=== PATIENT | female | born 1955 | race African-American/Black ===

== ENCOUNTER 2019-03-12 23:29 | Emergency (ER) | payer MEDICARE, MEDICAID ==
[2019-03-13 00:40] LABS: ABSOLUTE BASOPHILS # (AUTO) 0.1 10^3/uL (0.0-0.2); HEMOGLOBIN 11.5 g/dL (12.0-15.5); SEGMENTED NEUTROPHILS % (AUTO) 79.6 % (42-78); TOTAL CELLS COUNTED % (AUTO) 100 %
[2019-03-13 00:43] LABS: MEAN CORPUSCULAR VOLUME 92 fl (80-97)
--- NOTE | 2019-03-13 01:02 | ER Document Report ---
ED General - General TRAVEL OUTSIDE OF THE [place] IN LAST 30 DAYS: No - Related Data Home Medications: AMLODIPINE 10MG PO DAILY. ATORVASTATIN 20MG PO QD. CLOPIDOGREL 75 MG PO DAILY. COLACE 100MG PO QD. PEPCID 20MG PO BID. FERROUS SULFATE 325MG PO QD. ELIQUIS 2.5MG PO BID. LASIX 40MG PO QD. GABAPENTIN 300MG AGNIESZKA TID. TERAM TAB PO QD <SANDRO GARRETT - Last Filed: 03/13/19 02:47> - General Mode of Arrival: Medic Information source: Patient - HPI Onset: Other - Patient has chronic everyday abdominal pain and is on chronic pain management. Onset/Duration: Gradual Quality of pain: Cramping Severity: Severe Pain Level: 5 Associated symptoms: None Exacerbated by: Movement Relieved by: Denies Similar symptoms previously: Yes Recently seen / treated by doctor: Yes <SANTY ORTEGA - Last Filed: 03/13/19 06:51> - General Chief Complaint: Abdominal Pain Stated Complaint: ABDOMINAL PAIN,VOMITING Time Seen by Provider: 03/13/19 00:21 Primary Care Provider: RENAN LAZAR MD [Primary Care Provider] - Follow up as needed Notes: Patient has a chronic pain disorder of which she is followed by chronic pain clinic. Patient has run out of her oxycodone and does not have an appointment with the pain clinic until tomorrow. Patient is complaining of pain in her abdomen which is a chronic condition. Patient is having bowel movements and urinating without any discomfort. Patient complains of pain in her left lower quadrant and then she states it is all over. Patient had a recent work-up in the hospital for her abdominal pain and was discharged home to have an outpatient colonoscopy. Outpatient colonoscopy has not been done at this time as patient was on Eliquis and she has to be off Eliquis for a period of time before that it is the procedures done. Patient has an appointment for this procedure at the end of this month. Denies any hematemesis or melena. (SANTY ORTEGA) - [facility] Notes: Ms. Gamino is a 63-year-old female patient of Dr. Lazar presenting with recurrent/worsening abdominal pain.The patient was recently admitted for decompensated combined CHF and epigastric pain. She was managed with IV diuretic for fluid overload and other anti failure medication. She was seen in consultation by Dr. Aiken and eventually had EGD that revealed antral gastritis. Her hospital stay was prolonged due to persistent lower abdominal pain and her CAT scan of abdomen and pelvis suggested right sided inflammatory changes. She was not deemed candidate for colonoscopy at this time due to her triple antiplatelet therapy. Her Ecotrin and Eliquis were discontinued due to recurrent episodes of nasal bleeding. She was seen in consultation by Dr. Liang, palliative care specialist, with recommendation to stop Eliquis therapy. She was not transfused during the hospitalization. Her abdominal pain improved somewhat while she was in the hospital and she was started empirically on Mesalamine. She will be discharged home with post acute care consultation with Dr Aiken for outpatient colonoscopy and Dr Liang for further cardiac management. She initially felt she was doing better on prescribed medications but is now reporting that her abdominal pain has been worse today and that she cannot tolerate this any longer at home. (SANDRO GARRETT) 1 reason believe that patient is in the emergency room today is because she has run out of her oxycodone pain medication. Discussed case with Dr. Lazar who states he can has no clinical indication to admit patient to the hospital for for chronic pain. And that patient is scheduled for an outpatient colonoscopy. He recommended patient be discharged home and that she can continue her outpatient chronic pain management until further work-up is done on her abdominal pain. (SANTY ORTEGA) - Related Data Allergies/Adverse Reactions: pregabalin [From Lyrica] Allergy (Intermediate, Verified 03/13/19 02:12) RASH Past Medical History - General Information source: Patient, Emergency Med Personnel, [facility] Records - Social History Smoking Status: Former Smoker Chew tobacco use (# tins/day): No Frequency of alcohol use: None Drug Abuse: None Patient has suicidal ideation: No Patient has homicidal ideation: No - Past Medical History Cardiac Medical History: Reports: Hx Congestive Heart Failure, Hx Hypercholesterolemia, Hx Hypertension Pulmonary Medical History: Reports: Hx COPD Endocrine Medical History: Reports: Hx Diabetes Mellitus Type 2 GI Medical History: Reports: Hx Gastroesophageal Reflux Disease Past Surgical History: Reports: Hx Cardiac Surgery - CABG 2011 <SANDRO GARRETT - Last Filed: 03/13/19 02:47> - Social History Lives with: Family Family History: Reviewed & Not Pertinent Skin Medical History: Reports None Psychiatric Medical History: Reports: None <JORDANSANTY J - Last Filed: 03/13/19 06:51> Review of Systems <SANDRO GARRETT - Last Filed: 03/13/19 02:47> - Review of Systems Constitutional: Malaise, Weakness, Other - Chronic pain syndrome EENT: No symptoms reported Cardiovascular: Edema, Other - History of CHF Respiratory: No symptoms reported Gastrointestinal: Abdominal pain, Other - Chronic abdominal pain,. GERD. Genitourinary: No symptoms reported Female Genitourinary: No symptoms reported Musculoskeletal: Joint pain Skin: No symptoms reported Hematologic/Lymphatic: No symptoms reported Neurological/Psychological: No symptoms reported -: Yes All other systems reviewed and negative <JORDANSANTY J - Last Filed: 03/13/19 06:51> - Review of Systems Notes: Constitutional: Negative for fever. HENT: Negative for sore throat. Eyes: Negative for visual changes. Cardiovascular: Negative for chest pain. Respiratory: Negative for shortness of breath. Gastrointestinal: As per HPI Genitourinary: Negative for dysuria. Musculoskeletal: Negative for back pain. Skin: Negative for rash. Neurological: Negative for headaches, weakness or numbness. 10 point ROS negative except as marked above and in HPI. (SANDRO GARRETT) Physical Exam <SANDRO GARRETT - Last Filed: 03/13/19 02:47> - Vital signs Interpretation: Normal - General General appearance: Appears well, Alert In distress: Moderate - HEENT Head: Normocephalic, Atraumatic Eyes: Normal Pupils: PERRL - Respiratory Respiratory status: No respiratory distress Chest status: Nontender Breath sounds: Normal, Other - Diminished breath sounds in bases Chest palpation: Normal - Cardiovascular Rhythm: Regular Heart sounds: Normal auscultation Murmur: No - Abdominal Inspection: Normal Distension: No distension Bowel sounds: Normal Tenderness: Nontender, Tender, Other - There is no rebound or guarding. Patient complains of left lower quadrant tenderness on palpation. Organomegaly: No organomegaly - Back Back: Normal, Nontender - Extremities General upper extremity: Normal inspection, Nontender, Normal color, Normal ROM, Normal temperature General lower extremity: Normal inspection, Nontender, Normal color, Normal ROM, Normal temperature, Normal weight bearing. No: Rogelio's sign - Neurological Neuro grossly intact: Yes Cognition: Normal Orientation: AAOx4 [place] Coma Scale Eye Opening: Spontaneous [place] Coma Scale Verbal: Oriented [place] Coma Scale Motor: Obeys Commands [place] Coma Scale Total: 15 Speech: Normal Motor strength normal: LUE, RUE, LLE, RLE Sensory: Normal - Psychological Associated symptoms: Normal affect, Normal mood - Skin Skin Temperature: Warm Skin Moisture: Dry Skin Color: Normal <SANTY ORTEGA - Last Filed: 03/13/19 06:51> - Vital signs Vitals: Resp Pulse Ox 21 H 93 03/12/19 23:33 03/12/19 23:33 - Notes Notes: GENERAL: Elderly female appearing very uncomfortable. SKIN: Good turgor no rashes. HEAD: Normocephalic atraumatic. EYES: PERRLA. EOMI. Conjunctivae and sclerae clear. EARS: CANALS AND TMS CLEAR. NOSE: CLEAR. MOUTH: Moist mucosa. Good dentition. No stridor or edema. No drooling. NECK: Supple. No masses or thyromegaly. No adenopathy. Carotids 2+ without bruits. No JVD. BACK: Symmetrical without tenderness. CHEST: Respirations unlabored. Breath sounds clear and symmetrical. HEART: Healed CABG scar. Regular rhythm. No murmur gallop or rub. ABDOMEN: Moderately tender mid abdomen. Soft without masses, organomegaly or rebound. Bowel sounds normally active. No bruits. GENITALIA: Deferred. EXTREMITIES: 1+ pretibial edema bilaterally. No calf tenderness. Cap refill less than 1.5 seconds. Dorsalis pedis and posterior tibial pulses 3+ and symmetrical. NEUROLOGICAL: GCS 15. Alert and oriented x3. Fluent speech. Cranial nerves II through XII intact. Sensorimotor and cerebellar normal. Normal tone. PSYCHIATRIC: Appropriate affect. (SANDRO GARRETT) - General Notes: Obese (SANTY ORTEGA) Course - Laboratory Result Diagrams: 03/13/19 00:05 03/13/19 01:52 <SANDRO GARRETT - Last Filed: 03/13/19 02:47> - Laboratory Result Diagrams: 03/13/19 00:05 03/13/19 01:52 - Diagnostic Test Radiology reviewed: Image reviewed, Reports reviewed - EKG Interpretation by Ak EKG shows normal: Sinus rhythm <SANTY ORTEGA - Last Filed: 03/13/19 06:51> - Re-evaluation Re-evalutation: 03/13/19 02:47 Patient appears quite uncomfortable on arrival. She was afebrile and hemodynamically stable. She had some tenderness epigastrium. I reviewed her very complicated recent medical course based information from discharge summary documented by her primary care provider. I have kept her n.p.o. given her some IV fluids and some IV fentanyl and Zofran. CT abdomen pelvis has been requested again. White count is mildly elevated here. She discussed some new elevation of her bilirubin and persistent elevation of alkaline phosphatase and transaminases. This could potentially be due to hepatic congestion but on further questioning of the patient she says she has had gallstones in the past. I have added a request for abdominal ultrasound. Further care of this patient is turned over to Dr. Santy Ortega at 0300 hrs. with further disposition pending (SANDRO GARRETT) 03/13/19 06:[address] Lazar and based on patient's presentation there is no clinical indication that patient needed to be admitted to the hospital for chronic abdominal pain. Dr. Lazar recommended that patient be discharged home continue her patient chronic pain medications and other medications. Patient is scheduled for an outpatient colonoscopy. (SANTY ORTEGA) - Vital Signs Vital signs: Temp Pulse Resp BP Pulse Ox 97.9 F 19 147/80 H 98 03/13/19 05:38 03/13/19 06:01 03/13/19 06:01 03/13/19 06:01 - Laboratory Laboratory results interpreted by me: 03/13/19 03/13/19 03/13/19 00:05 01:52 01:52 WBC 11.7 H Hgb 11.5 L Hct 35.1 L RDW 16.6 H Lymph % (Auto) 9.1 L Absolute Neuts (auto) 9.3 H Seg Neutrophils % 79.6 H Glucose 161 H Total Bilirubin 2.2 H Direct Bilirubin 0.6 H Alkaline Phosphatase 346 H NT-Pro-B Natriuret Pep 8530 H Total Protein 8.8 H Lipase 20.2 L Urine Protein Urine Blood Urine Urobilinogen 03/13/19 02:25 WBC Hgb Hct RDW Lymph % (Auto) Absolute Neuts (auto) Seg Neutrophils % Glucose Total Bilirubin Direct Bilirubin Alkaline Phosphatase NT-Pro-B Natriuret Pep Total Protein Lipase Urine Protein >=500 H Urine Blood SMALL H Urine Urobilinogen 4.0 H - Diagnostic Test Radiology results interpreted by me: 03/13/19 06:[address] scan of abdomen pelvis showed cholelithiasis without cholecystitis diverticulosis but no diverticulitis. There was no acute inflammatory or obstructive disease noted. 03/13/19 06:45 Ultrasound of right upper quadrant showed cholelithiasis without obstruction. No cholecystitis was noted. (SANTY ORTEGA) - EKG Interpretation by Me Additional EKG results interpreted by me: 03/13/19 06:46 Twelve-lead EKG done March 12, 2019 time 234 EKG demonstrates a normal sinus rhythm rate of 90, probable left atrial abnormality, left ventricular hypertrophy with secondary repolarization abnormality. No other acute ST-T wave changes noted. (SANTY ORTEGA) Discharge <SANDRO GARRETT - Last Filed: 03/13/19 02:47> <SANTY ORTEGA - Last Filed: 03/13/19 06:51> - Discharge Clinical Impression: Abdominal pain Cholelithiasis Qualifiers: Cholelithiasis location: gallbladder Cholecystitis acuity: chronic Biliary obstruction: without biliary obstruction Condition: Good Disposition: HOME, SELF-CARE Instructions: Abdominal Pain ([facility]) Additional Instructions: Chronic Pain Control Stress, inactivity, and depression make pain more severe regardless of the cause of the pain. Stress and poor physical condition can cause pain such as headaches and backache. Relaxation: Rest in a quiet place with your eyes closed for 20 minutes twice daily. Concentrate on a pleasant image, or simply "feel" your breathing. Clear your mind. Stress management: Deal with your "stressors." Either take action, or eliminate the stressor from your life. Don't let things hang over you. Accept those things you can't change. Nutrition: Eat small, balanced meals -- don't skip, don't overeat. Meals should be high-carbohydrate, low-sugar, low-fat. Exercise: Exercise helps painful conditions and eases stress. Get 30 minutes of moderate exercise, five days a week. Do an activity that does not flare your pain. Precautions: Pain which continues to disrupt daily activities, or which changes in nature, requires a medical evaluation. Pain Clinic referral is available. We do not manage chronic pain in the Emergency Department. We will try to appropriately help you through an acute flare of your chronic painful condition, but for on-going chronic pain that does not improve, you will need to see your private doctor or painter maintenance. We do not provide repeated medication management of chronic painful conditions. If you wish, we can provide the name of local pain management physicians. Referrals: RENAN LAZAR MD [Primary Care Provider] - Follow up as needed
[2019-03-13 01:08] LABS: WHITE BLOOD COUNT 11.7 10^3/uL (4.0-10.5)
[2019-03-13 01:09] LABS: HEMATOCRIT 35.1 % (36.0-47.0); RED BLOOD COUNT 3.82 10^6/uL (3.72-5.28)
[2019-03-13 01:10] LABS: LYMPHOCYTES % (AUTO) 9.1 % (13-45); MEAN CORPUSCULAR HEMOGLOBIN 30.2 pg (27.0-33.4); MEAN CORPUSCULAR HGB CONC 32.9 g/dL (32.0-36.0); RED CELL DISTRIBUTION WIDTH 16.6 % (11.5-14.0)
[2019-03-13 01:11] LABS: EOSINOPHILS % (AUTO) 0.2 % (0-6)
[2019-03-13 01:12] LABS: ABSOLUTE LYMPHOCYTES (AUTO) 1.1 10^3/uL (0.5-4.7); ABSOLUTE MONOCYTES (AUTO) 1.2 10^3/uL (0.1-1.4); ABSOLUTE NEUT (AUTO) 9.3 10^3/uL (1.7-8.2); BASOPHILS % (AUTO) 0.5 % (0-2); MONOCYTES % (AUTO) 10.6 % (3-13)
[2019-03-13 01:14] LABS: PLATELET COUNT 205 10^3/uL (150-450)
[2019-03-13] MEDS ORDERED: NORMAL SALINE 1000 ML 1,000 ML IV ONE (01:58)
[2019-03-13] MEDS ORDERED: FENTANYL CITRATE INJ/PF 100 MCG/2 ML AMPUL IV PRN (01:59)
[2019-03-13] MEDS ORDERED: ONDANSETRON HCL INJ/PF 4 MG/2 ML SDV IV ONE (02:00)
[2019-03-13 02:26] LABS: ALKALINE PHOSPHATASE 346 U/L (38-126); ANION GAP 10 (5-19); ASPARTATE AMINO TRANSFERASE 25 U/L (14-36); BILIRUBIN,DIRECT 0.6 mg/dL (0.0-0.4); BILIRUBIN,TOTAL 2.2 mg/dL (0.2-1.3); BLOOD UREA NITROGEN 13 mg/dL (7-20); CALCIUM 9.7 mg/dL (8.4-10.2); CARBON DIOXIDE 25 mmol/L (22-30); CHLORIDE 107 mmol/L (98-107); GLUCOSE 161 mg/dL (75-110); POTASSIUM 4.2 mmol/L (3.6-5.0); TOTAL PROTEIN 8.8 g/dL (6.3-8.2)
[2019-03-13 02:37] LABS: APPEARANCE,URINE CLEAR; BILIRUBIN,URINE NEGATIVE (NEGATIVE); COLOR,URINE YELLOW; GLUCOSE, URINE NEGATIVE (NEGATIVE); KETONES,URINE NEGATIVE (NEGATIVE); LEUKOCYTE ESTERASE,URINE NEGATIVE (NEGATIVE); NITRITE,URINE NEGATIVE (NEGATIVE); PROTEIN,URINE >=500 mg/dL (NEGATIVE); URINE SPECIFIC GRAVITY 1.012
[2019-03-13 02:37] LABS: TROPONIN I 0.019 ng/mL
--- NOTE | 2019-03-13 04:30 | RADIOLOGY REPORT (SQ) ---
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 Comparison: CT of abdomen and pelvis from 03/13/2019 History: 63-year old patient with abdominal pain, abnormal liver function tests. Findings: The visualized portions of the hepatic parenchyma appear normal. No significant intra or extrahepatic ductal dilatation is seen. There is normal directional flow seen within the main portal vein. Cholelithiasis is seen without significant gallbladder wall thickening. The common duct measures 2-3 mm. The right kidney measures up to 13.1 cm in length. The right kidney demonstrates mildly increased cortical echogenicity with no evidence to suggest hydronephrosis. The visualized portions of the IVC, abdominal aorta, and pancreatic head appear normal. No free intraperitoneal fluid is seen. Impression: Cholelithiasis is seen. The common duct is within normal limits of size.
--- NOTE | 2019-03-13 05:15 | RADIOLOGY REPORT (SQ) ---
EXAM DESCRIPTION: CT ABDOMEN PELVIS WITHOUT THEN WITH IV CONTRAST COMPLETED DATE/TME: 03/13/2019 01:08 CLINICAL HISTORY: abdominal pain. CREAT 0.65 COMPARISON: 02/18/2019 TECHNIQUE: CT of the abdomen and pelvis performed before and after IV administration of 100 mL Omnipaque 350 FINDINGS: Lung Bases: Cardiomegaly. Small bilateral pleural effusions. Minimal bibasilar compressive atelectasis. Prior median sternotomy Bones: Degenerative endplate spondylosis throughout the visualized spine. Joint space narrowing and marginal osteophytosis of the hips. Abdomen: Liver: The liver has normal size and density. No intrahepatic mass or biliary dilatation. Gallbladder: Calcified gallstones Spleen, Pancreas, and Adrenal Glands: The spleen, pancreas, and adrenal glands are unremarkable. Kidneys: The kidneys have normal size without evidence of solid mass or hydronephrosis. Vasculature: Aortoiliac atherosclerosis. IVC is unremarkable. The portal vein is patent. The proximal visceral and renal arteries are patent. Stomach: The stomach and duodenum have normal course. Other: No free intraperitoneal air. No free fluid or lymphadenopathy. Pelvis: Bladder: Urinary bladder is unremarkable. Bowel: No dilated loops of large or small bowel. Scattered diverticula of the colon. Appendix: Normal appendix. Pelvis: IUD in the uterus. In the left pelvis there is redemonstrated 3.5 cm collection of air which may represent a diverticulum. IMPRESSION: 1. No acute inflammatory or obstructive process identified. 2. Cardiomegaly with small bilateral pleural effusions. 3. Diverticulosis without evidence of acute diverticulitis. 4. Stable air-containing structure in the left pelvis possibly representing a large diverticulum. 5. Cholelithiasis. This exam was performed according to our departmental dose-optimization program, which includes automated exposure control, adjustment of the mA and/or kV according to patient size and/or use of iterative reconstruction technique.
[2019-03-13] MEDS ORDERED: OXYCODONE HCL SR 10 MG TABLET PO ONE (05:53)
[2019-03-13 06:49] VITALS: BP 179/81
--- NOTE | 2019-03-13 07:41 | EKG REPORT ---
SEVERITY:- ABNORMAL ECG - SINUS RHYTHM PROBABLE LEFT ATRIAL ABNORMALITY LVH WITH SECONDARY REPOLARIZATION ABNORMALITY : Confirmed by: Thong Willett MD 13-Mar-2019 07:41:06
== END 2019-03-13 06:54 | disposition home or self-care (01) ==
LOC: ER 23:29 → EDBD 23:29 → ER 03-13 06:54
DX: K80.20 Calculus of gallbladder without cholecystitis without obstruction (principal); R10.9 Unspecified abdominal pain; G89.29 Other chronic pain; R10.32 Left lower quadrant pain; R53.1 Weakness; Z79.899 Other long term (current) drug therapy; Z79.01 Long term (current) use of anticoagulants; Z87.891 Personal history of nicotine dependence; I50.9 Heart failure, unspecified; I11.0 Hypertensive heart disease with heart failure; J44.9 Chronic obstructive pulmonary disease, unspecified; E11.9 Type 2 diabetes mellitus without complications; R53.81 Other malaise
CPT/HCPCS: 93005; 99284; 96361; 96374; 96375; 36415; 83690; 85025; 80053; 81001; 84484; 83880; 76705; 74178; 93010; J3010; A9270; J2405; J7030

== ENCOUNTER 2019-03-30 02:08 | Emergency (ER) | payer MEDICARE, MEDICAID ==
--- NOTE | 2019-03-30 04:12 | ER Document Report ---
ED General - General Chief Complaint: Headache Stated Complaint: HEADACHE Time Seen by Provider: 03/30/19 04:03 Primary Care Provider: RENAN LAZAR MD [Primary Care Provider] - Follow up as needed Notes: Patient is a 63-year-old female that comes emergency department with chief complaint of a headache. She states she had a milder one yesterday, then it came back today this evening over the right side of her head behind her right eye, and it has continued to tonight. She reports some nausea. She denies head in jury, focal numbness or weakness, visual changes, fever, vomiting. She denies trauma. She denies frequent headaches. She is on Plavix, she also was prescribed Eliquis but states she stopped this pending an EGD coming up. She states she is uncertain if she took her amlodipine 10 mg, she is also on 40 mg of Lasix daily. She denies blood pressure medications otherwise. When asked she also states she has had a vague discomfort in her chest along with some wheezing but denies cough specific shortness of breath. She reports stopping smoking recently, she has a history of COPD. She also has a history of CABG and CHF. Remaining medical history includes iron deficiency anemia, hyperlipidemia, gastritis. TRAVEL OUTSIDE OF THE [place] IN LAST 30 DAYS: No - Related Data Allergies/Adverse Reactions: pregabalin [From Lyrica] Allergy (Intermediate, Verified 03/13/19 02:12) RASH Home Medications: pepcid,colace,,atorvastatin,amilodipine, iron, eliquis (on hold for colonoscopy),lasix,gabapentin, mvi, vit c,asacol, carafate, escitalopram Past Medical History - General Information source: Patient - Social History Smoking Status: Former Smoker Frequency of alcohol use: None Drug Abuse: None Lives with: Family Family History: Reviewed & Not Pertinent Patient has suicidal ideation: No Patient has homicidal ideation: No - Past Medical History Cardiac Medical History: Reports: Hx Congestive Heart Failure, Hx Coronary Artery Disease, Hx Hypercholesterolemia, Hx Hypertension Pulmonary Medical History: Reports: Hx COPD Endocrine Medical History: Reports: Hx Diabetes Mellitus Type 2 GI Medical History: Reports: Hx Gastroesophageal Reflux Disease Past Surgical History: Reports: Hx Cardiac Surgery - CABG 2011 Review of Systems - Review of Systems Constitutional: No symptoms reported EENT: No symptoms reported Cardiovascular: No symptoms reported Respiratory: No symptoms reported Gastrointestinal: No symptoms reported Genitourinary: No symptoms reported Female Genitourinary: No symptoms reported Musculoskeletal: No symptoms reported Skin: No symptoms reported Hematologic/Lymphatic: No symptoms reported Neurological/Psychological: See HPI Physical Exam - Vital signs Vitals: Temp Pulse Resp BP Pulse Ox 98.4 F 87 16 173/80 H 100 03/30/19 02:16 03/30/19 02:16 03/30/19 02:16 03/30/19 02:16 03/30/19 02:16 - Notes Notes: GENERAL: Alert, interacts well. No acute distress. HEAD: Normocephalic, atraumatic. EYES: Pupils equal, round, and reactive to light. Extraocular movements intact. ENT: Oral mucosa moist, tongue midline. Oropharynx unremarkable. Terrible dentition. Airway patent. LUNGS: Scattered coarse breath sounds but no overt rales, rhonchi, or wheezes. No tachypnea or respiratory distress. HEART: Regular rate and rhythm. No murmur. ABDOMEN: Soft, non-tender. Non-distended. EXTREMITIES: There is weakness in the left lower extremity but there is also chronic lymphedema and a chronic healing wound. Distal sensation intact. Remaining extremities with 5 out of 5 strength and unremarkable. BACK: no cervical, thoracic, lumbar midline tenderness. No saddle anesthesia, normal distal neurovascular exam. Moves all extremities in full range of motion. NEUROLOGICAL: Alert and oriented x3. GCS of 15. Normal speech. Cranial nerves II through XII grossly intact. PSYCH: Normal affect, normal mood. SKIN: Warm, dry, normal turgor. No rashes or lesions noted. Course - Re-evaluation Re-evalutation: On my evaluation patient reports a headache but she does not have any neurovascular deficits. She is very hypertensive although this is improving from the initial reading. She is unsure if she took her blood pressure medication at home. She also has various complaints otherwise. She is nontoxic in appearance, alert and oriented. Because of her blood pressure, Plavix use, headache CT will be performed along with her general work-up to rule out intracranial hemorrhage. GCS is 15 and patient is alert and oriented. Patient does have left-sided leg weakness but she states this is chronic, there is chronic left leg lymphedema and a chronic wound that she sees the wound care center for. No overt neurological deficits. 03/30/19 05:50 CT shows large right temporal intracranial hemorrhage with bleeding into the parietal lobe. Appears to be shift. Radiologist called and confirmed. Patient is still hypertensive up into the 190s and currently in the 170s. We do not have Cardene therefore we will use Cardizem drip. Giving 1000 mg loading dose of Keppra. Updated Dr. Balderas. Patient requesting [facility] transfer. I have called transfer center, pending call back . 03/30/19 I spoke with [facility] transfer [place], Reena YOUNG, she states that they do not h ave neuro intensive beds, she states the hospitalist will call me back, she states that we can repeat the CAT scan in 6 hours and we will get them accepted to the hospitalist service in the meantime. Based on the lack of bed coverage I called and spoke with Elvis, I spoke with Jonathan HENDERSON, he accepts for transfer, Dr. Rowe is the accepting neurosurgeon. I did update patient on this and she states appreciation and agreement. Patient started getting hypoxic and having some wheezing. Pulmonary vascular congestion noted on chest x-ray, patient placed on 2 L and hypoxia resolved. She denies shortness of breath. 03/30/19 06:52 We lost initial IV access and we were unable to get PT PTT initially but this was reperformed, I placed a the second 20-gauge peripheral IV using ultrasound guidance as well. She is currently on a Cardizem drip at 5 mcg, has received Keppra, has TXA infusing. Patient has started yawning and reports that she is tired but her neurological exam is unchanged and she has no new neuro deficits. 03/30/19 06:59 Patient fell asleep but when I spoke to her she was arousable, she told me she knows she is going to [facility] for bleeding in her brain, she states she has a headache but she has no other complaints. No significant change on neurological exam other than her sleepiness. Blood pressure 160 systolic and we are going up on the Cardizem drip. Transport team is going to be here in less than 10 minutes. Patient is going by air. 03/30/19 07:15 Flight team is here, patient is oriented and responsive. We had poor results with Cardene and her blood pressure started to elevate into the 180s again, she was given 10 mg of hydralazine IV. Flight team has [place] and they are switching over to this because of her poor response to the Cardizem. Patient remains responsive and oriented with no significant change otherwise. Stable for transport. - Vital Signs Vital signs: Temp Pulse Resp BP Pulse Ox 98.2 F 82 12 167/81 H 100 03/30/19 06:56 03/30/19 07:14 03/30/19 07:14 03/30/19 07:14 03/30/19 07:14 - Laboratory Result Diagrams: 03/30/19 04:35 03/30/19 05:50 Laboratory results interpreted by me: 03/30/19 03/30/19 03/30/19 04:35 05:50 05:50 Hgb 11.5 L Hct 35.0 L RDW 17.3 H Plt Count 109 L Lymph % (Auto) 11.1 L Seg Neutrophils % 82.1 H Glucose 153 H Alkaline Phosphatase 330 H NT-Pro-B Natriuret Pep 4510 H Total Protein 8.3 H Critical Care Note - Critical Care Note Total time excluding time spent on procedures (mins): 50 - Hypertensive emergency, intracranial hemorrhage Comments: Please let 50 minutes of critical care time for evaluation and management of patient with hypertensive emergency, intracranial hemorrhage, requiring Cardizem drip, hydralazine push, TXA, Keppra. Time spent discussing with transfer centers and specialists from both [facility] and [facility]. Time spent performing multiple re-evaluations and interpretation of data. Discharge - Discharge Clinical Impression: Intracranial hemorrhage, Hypertensive emergency Headache Qualifiers: Headache type: unspecified Headache chronicity pattern: acute headache Intractability: intractable Qualified Code(s): R51 - Headache Condition: Serious Disposition: [facility] Referrals: RENAN LAZAR MD [Primary Care Provider] - Follow up as needed
[2019-03-30] MEDS ORDERED: ACETAMINOPHEN 325 MG TABLET PO ONE (04:13)
[2019-03-30] MEDS ORDERED: ONDANSETRON HCL INJ/PF 4 MG/2 ML SDV IV ONE (04:13)
[2019-03-30] MEDS ORDERED: ONDANSETRON 4 MG TAB.RAPDIS PO ONE (04:40)
[2019-03-30 05:00] LABS: ABSOLUTE EOSINOPHILS # (AUTO) 0.1 10^3/uL (0.0-0.6); ABSOLUTE LYMPHOCYTES (AUTO) 0.9 10^3/uL (0.5-4.7); ABSOLUTE MONOCYTES (AUTO) 0.5 10^3/uL (0.1-1.4); ABSOLUTE NEUT (AUTO) 6.7 10^3/uL (1.7-8.2); BASOPHILS % (AUTO) 0.5 % (0-2); EOSINOPHILS % (AUTO) 0.6 % (0-6); HEMOGLOBIN 11.5 g/dL (12.0-15.5); LYMPHOCYTES % (AUTO) 11.1 % (13-45); MEAN CORPUSCULAR HEMOGLOBIN 30.7 pg (27.0-33.4); MEAN CORPUSCULAR HGB CONC 32.8 g/dL (32.0-36.0); MEAN CORPUSCULAR VOLUME 94 fl (80-97); MONOCYTES % (AUTO) 5.7 % (3-13); RED BLOOD COUNT 3.73 10^6/uL (3.72-5.28); RED CELL DISTRIBUTION WIDTH 17.3 % (11.5-14.0); SEGMENTED NEUTROPHILS % (AUTO) 82.1 % (42-78); TOTAL CELLS COUNTED % (AUTO) 100 %; WHITE BLOOD COUNT 8.1 10^3/uL (4.0-10.5)
[2019-03-30 05:22] LABS: PLATELET COUNT 109 10^3/uL (150-450)
[2019-03-30] MEDS ORDERED: LEVETIRACETAM 1000 MG/NACL-ISO 1,000 MG/100 ML RTUPB IV ONE (05:41)
[2019-03-30] MEDS ORDERED: NICARDIPINE HCL RTU, ISO-OS 20 MG/200 ML RTUINJ IV PRN (05:41)
--- NOTE | 2019-03-30 05:43 | RADIOLOGY REPORT (SQ) ---
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 COMPARISON: None available TECHNIQUE: Multiple axial contiguous images were obtained through the head without intravenous contrast administered. This exam was performed according to our departmental dose-optimization program, which includes automated exposure control, adjustment of the mA and/or KV according to the patient's size and/or use of iterative reconstruction technique. FINDINGS: The ventricles are within normal limits for size. Both orbits appear unremarkable. The mastoid air cells appear clear. The visualized paranasal sinuses appear clear. The calvarium is intact. No extra-axial fluid collection is seen. The neal-white matter differentiation is within normal limits. There is a midline shift to the left by approximately 7 to 8 mm. There is effacement of the cerebral sulci from adjacent cerebral edema. There is a large hemorrhage seen at the right temporal lobe extending into the right parietal lobe. This measures at least 5.3 x 3.9 cm. There is some adjacent edema. IMPRESSION: There is a large hemorrhage seen at the right temporal lobe extending into the left parietal lobe with some mass effect on the right lateral ventricle. This could be due to a discrete hemorrhage or mass. There is also a midline shift and some cerebral edema.
[2019-03-30] MEDS ORDERED: DILTIAZEM HCL/D5W 125 MG/125 ML RTUINJ IV PRN (05:51)
[2019-03-30] MEDS ORDERED: LEVALBUTEROL HCL NEB 1.25 MG/3 ML AMPUL NEB ONE (05:57)
[2019-03-30] MEDS ORDERED: TRANEXAMIC ACID INJ/PF 1,000 MG/10 ML SDV IV ONE (06:30)
--- NOTE | 2019-03-30 06:31 | RADIOLOGY REPORT (SQ) ---
EXAM DESCRIPTION: XR CHEST 1 VIEW COMPLETED DATE/TME: 03/30/2019 04:10 CLINICAL HISTORY: chest tightness, wheezing COMPARISON: None. FINDINGS: Single frontal view of the chest. Cardiomediastinal silhouette: Cardiomegaly. Prior median sternotomy. Lungs: Pulmonary vascular congestion with bilateral interstitial opacities. No pneumothorax or large effusion. Bones: No acute osseous abnormality. Upper abdomen: No abnormality identified. IMPRESSION: 1. Cardiomegaly with bilateral interstitial opacities possibly representing pulmonary edema.
[2019-03-30 06:40] LABS: ALBUMIN 3.7 g/dL (3.5-5.0); ALKALINE PHOSPHATASE 330 U/L (38-126); ANION GAP 7 (5-19); ASPARTATE AMINO TRANSFERASE 22 U/L (14-36); BILIRUBIN,DIRECT 0.3 mg/dL (0.0-0.4); BLOOD UREA NITROGEN 18 mg/dL (7-20); CALCIUM 9.5 mg/dL (8.4-10.2); CARBON DIOXIDE 26 mmol/L (22-30); CHLORIDE 107 mmol/L (98-107); GLUCOSE 153 mg/dL (75-110); POTASSIUM 4.7 mmol/L (3.6-5.0); TOTAL PROTEIN 8.3 g/dL (6.3-8.2)
[2019-03-30 06:51] LABS: NT PRO BNP 4510 pg/mL (<125)
[2019-03-30 06:53] LABS: TROPONIN I < 0.012 ng/mL
[2019-03-30] MEDS ORDERED: HYDRALAZINE HCL INJ/PF 20 MG/1 ML SDV ONE (07:06)
[2019-03-30] MEDS ORDERED: HYDRALAZINE HCL INJ/PF 20 MG/1 ML SDV IV ONE (07:09)
[2019-03-30 07:14] VITALS: BP 167/81
[2019-03-30 07:17] LABS: INTERNATIONAL RATION (INR) 1.14; PROTHROMBIN TIME 14.7 SEC (11.4-15.4)
[2019-03-30 07:18] LABS: PARTIAL THROMBOPLASTIN TIME 31.3 SEC (23.5-35.8)
--- NOTE | 2019-03-30 21:19 | EKG REPORT ---
SEVERITY:- ABNORMAL ECG - SINUS RHYTHM VENTRICULAR PREMATURE COMPLEX LEFT VENTRICULAR HYPERTROPHY : Confirmed by: Gema Garcia MD 30-Mar-2019 21:18:25
== END 2019-03-30 07:22 | disposition short-term general hospital (02) ==
LOC: ER 02:08
DX: I62.9 Nontraumatic intracranial hemorrhage, unspecified (principal); I16.1 Hypertensive emergency; R51 Headache; H57.11 Ocular pain, right eye; R11.0 Nausea; Z79.01 Long term (current) use of anticoagulants; Z79.899 Other long term (current) drug therapy; J44.9 Chronic obstructive pulmonary disease, unspecified; I11.0 Hypertensive heart disease with heart failure; I50.9 Heart failure, unspecified; I25.10 Atherosclerotic heart disease of native coronary artery without angina pectoris; E11.9 Type 2 diabetes mellitus without complications; Z88.8 Allergy status to other drugs, medicaments and biological substances; Z87.891 Personal history of nicotine dependence
CPT/HCPCS: 93005; 36415; 85025; 85610; 85730; 80053; 84484; 83880; 71045; 70450; 93010; A9270 ×2; J0360; J3490 ×2; J1953; 96365; 96367; 96375; 99291; S0119

== ENCOUNTER 2019-04-12 15:49 | Inpatient (IN) | payer MEDICARE, MEDICAID ==
--- NOTE | 2019-04-12 16:06 | ER Document Report ---
ED Cardiac - General TRAVEL OUTSIDE OF THE [place] IN LAST 30 DAYS: No <CELENA LEIGH - Last Filed: 04/12/19 20:24> <TERESA VELÁSQUEZ - Last Filed: 04/12/19 22:26> - General Chief Complaint: Chest Tightness Stated Complaint: CHEST TIGHTNESS Time Seen by Provider: 04/12/19 15:52 Primary Care Provider: RENAN LAZAR MD [Primary Care Provider] - Follow up as needed Notes: Patient is a 63-year-old female with a history of [place], CHF, anemia, type 2 diabetes, hypertension who presents emergency department with a chief complaint of chest tightness and headache. Patient reports about 2 hours prior to arrival she had an acute onset of headache. Patient reports at that same time she also developed chest tightness. Patient reports she did not fall or strike her head. Patient reports the headache is located to the top and is sharp and stabbing in nature. Patient reports she has not taken anything for her discomfort. Patient reports she was discharged from [facility] on Monday after being admitted for 1 week from a brain bleed. Patient reports while she was in the hospital they were given her Fioricet. Patient reports since being discharged she has not gotten her prescriptions filled for her medications. Patient unsure what type of medication she is supposed to be on. Patient also reports generalized chest tightness. Patient denies use of blood thinners. Patient reports she was supposed to be taking Eliquis but has been off of this for over 2 weeks due to upcoming upper endoscopy. Patient reports she is not still taking Plavix. Patient denies cough, cold like symptoms or fever. Patient also following wound care for a diabetic ulcer. Patient reports she has not seen wound care since being discharged on Monday. Patient has not had any dressing changes. (CELENA LEIGH) - Related Data Allergies/Adverse Reactions: pregabalin [From Lyrica] Allergy (Intermediate, Verified 04/04/19 09:00) RASH duloxetine Allergy (Verified 04/04/19 09:00) Past Medical History - General Information source: Patient - Social History Smoking Status: Never Smoker Lives with: Family Family History: CAD, Hyperlipidemia, Hypertension, Reviewed & Not Pertinent - Past Medical History Cardiac Medical History: Reports: Hx Congestive Heart Failure, Hx Coronary Artery Disease, Hx Heart Attack, Hx Hypercholesterolemia, Hx Hypertension, Hx Peripheral Vascular Disease Denies: Hx Atrial Fibrillation Pulmonary Medical History: Reports: Hx Bronchitis Denies: Hx Asthma, Hx COPD, Hx Pneumonia, Hx Tuberculosis EENT Medical History: Reports: None Neurological Medical History: Reports: Hx Cerebrovascular Accident - 2007. Denies: Hx Seizures, Hx Parkinson's Disease Endocrine Medical History: Reports: Hx Diabetes Mellitus Type 1, Hx Diabetes Mellitus Type 2 Renal/ Medical History: Reports: None. Denies: Hx End Stage Renal Disease, Hx Peritoneal Dialysis Malignancy Medical History: Reports: None GI Medical History: Reports: Hx Diverticulitis - diverticulosis. Denies: Hx Gastroesophageal Reflux Disease, Hx Hiatal Hernia Musculoskeletal Medical History: Reports None, Denies Hx Arthritis, Denies Hx Systemic Lupus Erythematosus Skin Medical History: Denies Hx MRSA Psychiatric Medical History: Reports: None Denies: Hx Bipolar Disorder, Hx Depression Traumatic Medical History: Reports: None Infectious Medical History: Reports: None Past Surgical History: Reports: Hx Cardiac Surgery - quad bypass, Hx Coronary Artery Bypass Graft - May 16 2011, Hx Tonsillectomy, Hx Vascular Surgery. Denies: Hx Appendectomy, Hx Cardiac Catheterization, Hx Section, Hx Cholecystectomy, Hx Hysterectomy, Hx Mastectomy, Hx Tubal Ligation - Immunizations Immunizations up to date: No Hx Diphtheria, Pertussis, Tetanus Vaccination: Yes Hx Pneumococcal Vaccination: 11/20/10 <CELENA LEIGH - Last Filed: 04/12/19 20:24> Review of Systems - Review of Systems Constitutional: No symptoms reported EENT: No symptoms reported Cardiovascular: See HPI Respiratory: No symptoms reported Gastrointestinal: No symptoms reported Genitourinary: No symptoms reported Female Genitourinary: No symptoms reported Musculoskeletal: No symptoms reported Skin: No symptoms reported Hematologic/Lymphatic: No symptoms reported Neurological/Psychological: See HPI <CELENA LEIGH - Last Filed: 04/12/19 20:24> Physical Exam <CELENA LEIGH - Last Filed: 04/12/19 20:24> - Vital signs Vitals: Pulse Ox 85 L 04/12/19 15:56 - Notes Notes: GENERAL: Obese female, sitting upright, good eye contact, appears to have poor hygiene - smells of urine. HEAD: Atraumatic, normocephalic. EYES: Pupils equal round and reactive to light, extraocular movements intact, sclera anicteric, conjunctiva are normal. ENT: Nares patent, oropharynx clear without exudates. Moist mucous membranes. NECK: Normal range of motion, supple without lymphadenopathy or JVD. LUNGS: Scattered rhonchi noted to right middle and upper lobe, somewhat clears with cough, slight expiratory wheeze. Breathing even and unlabored. HEART: Regular rate and rhythm without murmurs, rubs or gallops. Non reproducible chest pain with palpation. ABDOMEN: Soft, obese, nontender, normoactive bowel sounds. No guarding, no rebound. No masses appreciated. BACK: No cervical, thoracic, lumbar midline tenderness. No saddle anesthesia, normal distal neurovascular exam. GENITOURINARY: Deferred. EXTREMITIES: Left lower extremity edema - more present than right leg (pt. reports this is normal). 4x4cm diabetic foot ulcer, non draining to the plantar aspect of the left foot on the heel. Saturated socks removed from bilateral feet. NEUROLOGICAL: Cranial nerves II through XII grossly intact. Normal speech, gait not tested. PSYCH: Normal mood, normal affect. SKIN: Warm, Dry, normal turgor, no rashes or lesions noted. (CELENA LEIGH) Course - Diagnostic Test Radiology reviewed: Reports reviewed <CELENA LEIGH - Last Filed: 04/12/19 20:24> - Laboratory Result Diagrams: 04/12/19 20:00 04/12/19 20:00 <TERESA VELÁSQUEZ - Last Filed: 04/12/19 22:26> - Re-evaluation Re-evalutation: 04/12/19 16:25 Patient reports worsening headache. Patient did receive nitroglycerin for her chest pain via EMS. Will give Tylenol. Also order a head CT as the patient was recently transferred to a higher level of care due to a brain bleed. Will initiate a cardiac work-up. Anticipate admission by her primary care doctor, Dr. Lazar. 04/12/19 16:27 Patient does have worsening opacities in the right lung suspicious for pneumonia. Will add on blood cultures and initiate antibiotics. 04/12/19 17:39 It does appear that the patient's head CT has improved since she was here prior. There is no midline shift. 04/12/19 19:37 Patient was given her carvedilol 12.5 mg as she is post take this twice daily as well as hydralazine 100 mg every 8 hours. Patient unable to state what other blood pressure medication she is on. Patient reports her last dose of both of these were earlier this morning. 04/12/19 19:43 Patient's blood pressure is 115/58. Patient is 93% on room air. Patient is easy to arouse. Patient reports her headache is slightly better. Lab work has been drawn by laboratory staff these results are pending. Urinalysis has resulted which is unremarkable. I did inform the patient that I will contact either Dr. Lazar or the provider that is covering for his practice to get her admitted to the hospital although she may get transferred back to [facility]. Patient verbalizes understanding and denies questions at this time. Patient mentating appropriately and is alert and oriented x3. 04/12/19 20:25 I did call and speak with lab, they have sent another staff member down to draw blood work. LORRIE Roberto to follow patient case and admit to [facility]. (CELENA LEIGH) 04/12/19 22:[address] Dyer. He states he did evaluate the patient and her main complaint was her headache. I did evaluate the patient at bedside and she stated that her Fioricet and oxycodone were not controlling her headache today, she also states that she had discomfort in her chest that developed today. I did note that patient became hypoxic 87% on room air and I did place her on 2 L nasal cannula, she is currently 99% on oxygen. I did ask about patient's headache now and she states that she currently does not have a headache. She denies current complaints. 04/12/19 22:[address] Sanders with [facility]. I had sent him the new images and he reviewed these, he states that the bleed actually looks significantly improved compared to prior, he states that she will have fluctuating headaches for the next 6 months until her body reabsorbs this, he states this absolutely does not need to be evacuated and he does not recommend transfer for this. 04/12/19 22:[address] Dyer again, he accepts patient for admission, patient is to be admitted under Dr. Lazar's service for full admission. (TERESA VELÁSQUEZ) - Vital Signs Vital signs: Temp Pulse Resp BP Pulse Ox 13 115/58 L 91 L 04/12/19 19:31 04/12/19 19:31 04/12/19 19:31 - Laboratory Laboratory results interpreted by me: 04/12/19 04/12/19 04/12/19 19:00 20:00 20:00 WBC 11.0 H RBC 3.00 L Hgb 9.3 L Hct 28.1 L RDW 17.9 H Lymph % (Auto) 7.6 L Absolute Neuts (auto) 9.2 H Seg Neutrophils % 83.2 H BUN 29 H Glucose 264 H Direct Bilirubin 0.6 H Alkaline Phosphatase 262 H NT-Pro-B Natriuret Pep Albumin 3.3 L Urine Protein 100 H Urine Glucose (UA) 50 H Urine Ascorbic Acid 20 H 04/12/19 20:00 WBC RBC Hgb Hct RDW Lymph % (Auto) Absolute Neuts (auto) Seg Neutrophils % BUN Glucose Direct Bilirubin Alkaline Phosphatase NT-Pro-B Natriuret Pep 8470 H Albumin Urine Protein Urine Glucose (UA) Urine Ascorbic Acid - Diagnostic Test Radiology results interpreted by me: 04/12/19 17:39 Chest X-Ray 04/12/19 15:51 IMPRESSION: Worsening patchy opacities in the right lung suspicious for pneumonia. Head CT 04/12/19 16:04 IMPRESSION: Expected evolving appearance of the large right temporal lobe hem orrhage. No midline shift. No acute finding. EVIDENCE OF ACUTE STROKE: NO. (CELENA LEIGH) Discharge <CELENA LEIGH - Last Filed: 04/12/19 20:24> - Discharge Admitting Provider: [facility] - by Dr. Dyer Unit Admitted: Telemetry <TERESA VELÁSQUEZ - Last Filed: 04/12/19 22:26> - Discharge Clinical Impression: Hospital-acquired pneumonia, Hypoxia Chest pain Qualifiers: Chest pain type: unspecified Qualified Code(s): R07.9 - Chest pain, unspecified Headache Qualifiers: Headache type: unspecified Headache chronicity pattern: episodic headache Intractability: not intractable Qualified Code(s): R51 - Headache Condition: Stable Disposition: ADMITTED INPATIENT Referrals: RENAN LAZAR MD [Primary Care Provider] - Follow up as needed
[2019-04-12] MEDS ORDERED: ACETAMINOPHEN 325 MG TABLET PO ONE (16:14)
--- NOTE | 2019-04-12 16:24 | RADIOLOGY REPORT (SQ) ---
EXAM DESCRIPTION: CHEST SINGLE VIEW COMPLETED DATE/TIME: 04/12/2019 3:03 pm REASON FOR STUDY: bed 5 chest pain COMPARISON: 03/30/2019 EXAM PARAMETERS: NUMBER OF VIEWS: One view. TECHNIQUE: Single frontal radiographic view of the chest acquired. RADIATION DOSE: NA LIMITATIONS: None. FINDINGS: LUNGS AND PLEURA: Name patchy opacities in the right upper and lower lungs. No pleural ef fusion or pneumothorax. Lungs are hyperinflated. MEDIASTINUM AND HILAR STRUCTURES: No masses. Contour normal. HEART AND VASCULAR STRUCTURES: Moderate cardiomegaly. BONES: No acute findings. HARDWARE: None in the chest. OTHER: No other significant finding. IMPRESSION: Worsening patchy opacities in the right lung suspicious for pneumonia. TECHNICAL DOCUMENTATION: JOB ID: [id number] 2010 [employer]- All Rights Reserved Reading location - IP/workstation name: [email or web address]
[2019-04-12] MEDS ORDERED: PIPERACILLIN/TAZOBACTAM 3.375 GM VIAL IV ONE ×2 (17:13→21:00)
[2019-04-12] MEDS ORDERED: PHARMACY COMMUNICATION ORDER MC NR (17:15)
--- NOTE | 2019-04-12 17:32 | RADIOLOGY REPORT (SQ) ---
EXAM DESCRIPTION: CT HEAD WITHOUT COMPLETED DATE/TIME: 04/12/2019 5:04 pm REASON FOR STUDY: ACUTE HEADACHE, HX. STROKE X 1 WEEK AGO COMPARISON: 03/30/2019 TECHNIQUE: Axial images acquired through the brain without intravenous contrast. Images reviewed wit h bone, brain and subdural windows. Images stored on PACS. All CT scanners at this facility use dose modulation, iterative reconstruction, and/or weight based d osing when appropriate to reduce radiation dose to as low as reasonably achievable (ALARA). [facility]: Dose Right [facility]: CareDose [facility]: Dose Right [facility]: Teradose 4D [facility]: [employer] RADIATION DOSE: CT Rad equipment meets quality standard of care and radiation dose reduction techniq ues were employed. CTDIvol: 53.2 mGy. DLP: 1382 mGy-cm.. LIMITATIONS: None. FINDINGS: VENTRICLES: Normal size and contour. CEREBRUM: Expected evolving appearance of the large right temporal lobe hemorrhage. No midline shift. No acute finding. CEREBELLUM: No masses. No hemorrhage. No alteration of density. No evidence for acute infarction. EXTRA-AXIAL SPACES: No fluid collections. ORBITS AND GLOBE: No intra- or extraconal masses. Normal contour of globe without masses. CALVARIUM: No fracture. PARANASAL SINUSES: No fluid or mucosal thickening. SOFT TISSUES: No mass or hematoma. OTHER: No other significant finding. IMPRESSION: Expected evolving appearance of the large right temporal lobe hemorrhage. No midline ramesh ft. No acute finding. EVIDENCE OF ACUTE STROKE: NO. TECHNICAL DOCUMENTATION: JOB ID: [id number] Quality ID # [id number]: Final reports with documentation of one or more dose reduction techniques (e.g., Au tomated exposure control, adjustment of the mA and/or kV according to patient size, use of iterative reconstruction technique) 2010 [employer]- All Rights Reserved Reading location - IP/workstation name: [employer]
[2019-04-12] MEDS ORDERED: CARVEDILOL 12.5 MG TABLET PO ONE (18:26)
[2019-04-12] MEDS ORDERED: HYDRALAZINE HCL 50 MG TABLET PO ONE (18:26)
[2019-04-12] MEDS ORDERED: IPRATROPIUM/ALBUTEROL 0.5-2.5 MG/3 ML AMPUL NEB ONE (18:26)
--- NOTE | 2019-04-12 18:40 | EKG REPORT ---
SEVERITY:- ABNORMAL ECG - SINUS RHYTHM LVH WITH SECONDARY REPOLARIZATION ABNORMALITY BORDERLINE PROLONGED QT INTERVAL : Confirmed by: Daphnie Lujan 12-Apr-2019 18:39:01
[2019-04-12] MEDS ORDERED: VANCOMYCIN HCL 1,500 MG in DEXTROSE 5%-WATER 250 ML IV ONE (19:00)
[2019-04-12] MEDS ORDERED: VANCOMYCIN HCL INJ 1000 MG VIAL IV ONE ×2 (19:00→21:15)
[2019-04-12 19:40] LABS: APPEARANCE,URINE SLIGHTLY-CLOUDY; BILIRUBIN,URINE NEGATIVE (NEGATIVE); COLOR,URINE YELLOW; GLUCOSE, URINE 50 mg/dL (NEGATIVE); KETONES,URINE NEGATIVE (NEGATIVE); LEUKOCYTE ESTERASE,URINE NEGATIVE (NEGATIVE); NITRITE,URINE NEGATIVE (NEGATIVE); PROTEIN,URINE 100 mg/dL (NEGATIVE); URINE SPECIFIC GRAVITY 1.012; UROBILINOGEN,URINE NEGATIVE mg/dL (<2.0)
[2019-04-12 20:30] LABS: ABSOLUTE EOSINOPHILS # (AUTO) 0.1 10^3/uL (0.0-0.6); ABSOLUTE LYMPHOCYTES (AUTO) 0.8 10^3/uL (0.5-4.7); ABSOLUTE MONOCYTES (AUTO) 0.9 10^3/uL (0.1-1.4); ABSOLUTE NEUT (AUTO) 9.2 10^3/uL (1.7-8.2); BASOPHILS % (AUTO) 0.3 % (0-2); EOSINOPHILS % (AUTO) 0.8 % (0-6); HEMATOCRIT 28.1 % (36.0-47.0); HEMOGLOBIN 9.3 g/dL (12.0-15.5); LYMPHOCYTES % (AUTO) 7.6 % (13-45); MEAN CORPUSCULAR HEMOGLOBIN 31.1 pg (27.0-33.4); MEAN CORPUSCULAR HGB CONC 33.3 g/dL (32.0-36.0); MEAN CORPUSCULAR VOLUME 94 fl (80-97); MONOCYTES % (AUTO) 8.1 % (3-13); PLATELET COUNT 191 10^3/uL (150-450); RED CELL DISTRIBUTION WIDTH 17.9 % (11.5-14.0); SEGMENTED NEUTROPHILS % (AUTO) 83.2 % (42-78); TOTAL CELLS COUNTED % (AUTO) 100 %
[2019-04-12 20:52] LABS: ALBUMIN 3.3 g/dL (3.5-5.0); ALKALINE PHOSPHATASE 262 U/L (38-126); ANION GAP 8 (5-19); ASPARTATE AMINO TRANSFERASE 21 U/L (14-36); BILIRUBIN,DIRECT 0.6 mg/dL (0.0-0.4); BILIRUBIN,TOTAL 0.9 mg/dL (0.2-1.3); BLOOD UREA NITROGEN 29 mg/dL (7-20); CARBON DIOXIDE 28 mmol/L (22-30); CHLORIDE 102 mmol/L (98-107); GLUCOSE 264 mg/dL (75-110); POTASSIUM 3.6 mmol/L (3.6-5.0); TOTAL PROTEIN 7.6 g/dL (6.3-8.2)
[2019-04-12 21:28] LABS: TROPONIN I 0.042 ng/mL
[2019-04-12] MEDS ORDERED: DEXTROSE 50%-WATER 25 GM/50 ML DISP.SYRIN IV PRN ×2 (22:31)
[2019-04-12] MEDS ORDERED: GLUCAGON,HUMAN RECOMB 1 MG INJ IM PRN (22:31)
[2019-04-12] MEDS ORDERED: DEXTROSE 40% GEL 15 GM TUBE PO PRN ×2 (22:31)
--- NOTE | 2019-04-12 22:36 | Progress Note ---
Provider Note Provider Note: pt seen and exam in er stable as per neurosx at [facility] no need tranfer and chronic headache for 6 month
[2019-04-12] MEDS: GUAIFENESIN 600 MG TABLET.SA PO SCH (23:45)
[2019-04-12] MEDS: FUROSEMIDE INJ/PF 20 MG/2 ML SDV IV SCH (23:45)
[2019-04-13] MEDS ORDERED: PIPERACILLIN/TAZOBACTAM 3.375 GM VIAL IV ONE (03:41)
[2019-04-13] MEDS: PIPERACILLIN SODIUM/TAZOBACTAM 3.375 GM in NORMAL SALINE 100 ML IV SCH ×4 (04:27→21:30)
[2019-04-13] MEDS: OXYCODONE-ACETAMINOPHEN 5-325 MG TABLET PO PRN ×3 (05:10→18:27)
[2019-04-13 06:15] LABS: ABSOLUTE EOSINOPHILS # (AUTO) 0.1 10^3/uL (0.0-0.6); ABSOLUTE LYMPHOCYTES (AUTO) 0.9 10^3/uL (0.5-4.7); ABSOLUTE MONOCYTES (AUTO) 0.7 10^3/uL (0.1-1.4); ABSOLUTE NEUT (AUTO) 4.4 10^3/uL (1.7-8.2); BASOPHILS % (AUTO) 0.5 % (0-2); EOSINOPHILS % (AUTO) 1.1 % (0-6); HEMATOCRIT 27.2 % (36.0-47.0); HEMOGLOBIN 9.2 g/dL (12.0-15.5); MEAN CORPUSCULAR HEMOGLOBIN 31.4 pg (27.0-33.4); MEAN CORPUSCULAR HGB CONC 33.8 g/dL (32.0-36.0); MEAN CORPUSCULAR VOLUME 93 fl (80-97); MONOCYTES % (AUTO) 11.6 % (3-13); PLATELET COUNT 163 10^3/uL (150-450); RED BLOOD COUNT 2.92 10^6/uL (3.72-5.28); RED CELL DISTRIBUTION WIDTH 17.5 % (11.5-14.0); SEGMENTED NEUTROPHILS % (AUTO) 72.8 % (42-78); TOTAL CELLS COUNTED % (AUTO) 100 %; WHITE BLOOD COUNT 6.1 10^3/uL (4.0-10.5)
[2019-04-13 06:37] LABS: ALBUMIN 3.1 g/dL (3.5-5.0); ALKALINE PHOSPHATASE 225 U/L (38-126); ANION GAP 9 (5-19); ASPARTATE AMINO TRANSFERASE 25 U/L (14-36); BILIRUBIN,DIRECT 0.6 mg/dL (0.0-0.4); BILIRUBIN,TOTAL 1.2 mg/dL (0.2-1.3); BLOOD UREA NITROGEN 34 mg/dL (7-20); CALCIUM 8.9 mg/dL (8.4-10.2); CARBON DIOXIDE 25 mmol/L (22-30); CHLORIDE 105 mmol/L (98-107); GLUCOSE 228 mg/dL (75-110); POTASSIUM 4.1 mmol/L (3.6-5.0); TOTAL PROTEIN 6.9 g/dL (6.3-8.2)
[2019-04-13 06:39] LABS: CREATINE KINASE < 20 U/L (30-135)
[2019-04-13 06:45] LABS: CREATINE KINASE MB 1.04 ng/mL (<4.55); TROPONIN I 0.03 ng/mL
[2019-04-13] MEDS: INSULIN LISPRO 100 UNIT/ML 3 ML VIAL SUBCUT SCH ×4 (09:06→20:00)
[2019-04-13] MEDS: FUROSEMIDE INJ/PF 20 MG/2 ML SDV IV SCH ×2 (09:06→21:34)
--- NOTE | 2019-04-13 10:01 | PDOC H&P ---
History of Present Illness Admission Date/PCP: 04/12/19 22:40 RENAN NAGI Patient complains of: Headache and the chest pain History of Present Illness: LEEANN FUNEZ is a 63 year old female Is a 63-year-old female's with a history of the coronary artery disease history of the myocardial infections congestive heart failure type 2 diabetes hypertension's recently admitting in the [facility] for the intracranial hemorrhage came to the emergency department with chief complaining of a headache with chest discomfort. Patient is reported about 2 hours prior to arrival she had acute onset of the headache patient also reporting some chest tightness with the same times patient's denied any fall or hit her head. Patient is reported the headache is located to the top and is sharp and stabbing in nature and comes and goes patients try some Tylenol and patient's was giving ferrocite from the [place] is still not help patient also taking the pain med ication oxycodone for the pain management for other issues Patient was admitted in the Monday after being for the 1 week from the brain bleed patient's was taking the Eliquis Plavix and aspirin in the past currently on hold In the emergency department patient was CT of the head was done which is pretty stable hematoma and discussed with the [place] neurosurgery he reviewed the image from the previous CT scan and suggested no need to transfer the patient in a headache should be persist for another 6-month continues to use the PRN Tylenol ferrocite When I saw the patient sister complained about headache but pretty much stable after giving the Tylenol patient's denied any eye problems denied any chest pain Patient's chest x-ray reveals questionable pneumonia start on IV antibiotics Patient is currently denied any cough Past Medical History Cardiac Medical History: Reports: Congestive Heart Failure, Coronary Artery Disease, Myocardial Infarction, Hyperlipidema, Hypertension, Peripheral Vascular Disease Denies: Atrial Fibrillation Pulmonary Medical History: Reports: Bronchitis Denies: Asthma, Chronic Obstructive Pulmonary Disease (COPD), Pneumonia, Tuberculosis EENT Medical History: Reports: None Neurological Medical History: Denies: Seizures Endocrine Medical History: Reports: Diabetes Mellitus Type 2 Renal/ Medical History: Reports: None, Chronic Kidney Disease Denies: End Stage Renal Disease Malignancy Medical History: Reports: None GI Medical History: Reports: Diverticulitis - diverticulosis Denies: Gastroesophageal Reflux Disease, Hiatal Hernia Musculoskeltal Medical History: Reports: None Denies: Arthritis Psychiatric Medical History: Reports: None Denies: Bipolar Disorder, Depression Traumatic Medical History: Reports: None Hematology: Denies: Anemia, Hemophilia, Sickle Cell Disease Infectious Medical History: Reports: None Past Surgical History Past Surgical History: Reports: Coronary Artery Bypass Graft - May 16 2011, Tonsillectomy, Vascular Surgery Denies: Amputation, Appendectomy, Cardiac Catheterization, Section, Cholecystectomy, Hysterectomy, Mastectomy, Tubal Ligation Social History Information Source: Patient Lives with: Family Smoking Status: Never Smoker Electronic Cigarette use?: No Frequency of Alcohol Use: None Hx Recreational Drug Use: No Drugs: None Hx Prescription Drug Abuse: No Family History Family History: CAD, Hyperlipidemia, Hypertension, Reviewed & Not Pertinent Parental Family History Reviewed: Yes Children Family History Reviewed: Yes Sibling(s) Family History Reviewed.: Yes Medication/Allergy Home Medications: Amlodipine Besylate [Norvasc 10 mg Tablet] 10 mg PO DAILY 11/30/18 Ascorbic Acid [Vitamin C 500 mg Tablet] 500 mg PO DAILY 11/30/18 Atorvastatin Calcium [Lipitor 20 mg Tablet] 20 mg PO QHS 11/30/18 Docusate Sodium [Colace 100 mg Capsule] 100 mg PO BIDP PRN 11/30/18 Ferrous Sulfate [Feosol 325 mg Tablet] 325 mg PO DAILY 11/30/18 Furosemide [Lasix 20 mg Tablet] 40 mg PO BID 11/30/18 Nitroglycerin [Nitrostat 0.4 mg (1/150 Gr) Tabs 25/Bottle] 0.4 mg SL Q5MP PRN 11/30/18 Oxycodone HCl/Acetaminophen [Percocet 7.5-325 mg Tablet] 1 tab PO Q6HP PRN 11/30/18 Valsartan [Diovan 160 mg Tablet] 160 mg PO DAILY 11/30/18 Clopidogrel Bisulfate [Plavix 75 mg Tablet] 75 mg PO DAILY 01/06/19 Gabapentin [Neurontin 300 mg Capsule] 300 mg PO Q8 01/06/19 Insulin Aspart [Novolog Flexpen] 0 unit SQ .SLIDING SCALE 01/06/19 Insulin Degludec [Tresiba Flextouch U-100] 40 unit SQ DAILY 01/06/19 Multivit,Tx with Iron,Minerals [Thera-M] 1 each PO DAILY 01/06/19 Mupirocin [Bactroban 2% Ointment 22 gm] 1 applic TP BID 5 Days #1 tube 01/13/19 Escitalopram Oxalate [Lexapro 10 mg Tablet] 10 mg PO QHS #30 tablet 03/01/19 Mesalamine [Mesalamine Dr] 800 mg PO TID 30 Days #180 cap.drtab. 03/01/19 Sodium Chloride [[place] Nasal [place] 44 ml Bottle] 1 spray NASL PRN PRN #1 bottle 03/01/19 Sucralfate [Carafate 1 gm Tablet] 1 gm PO Q6 #120 tablet 03/01/19 Allergies/Adverse Reactions: pregabalin [From Lyrica] Allergy (Intermediate, Verified 04/04/19 09:00) RASH duloxetine Allergy (Verified 04/04/19 09:00) Review of Systems Constitutional: ABSENT: chills, fever(s), headache(s), weight gain, weight loss Eyes: ABSENT: visual disturbances Ears: ABSENT: hearing changes Nose, Mouth, and Throat: PRESENT: headache(s) Cardiovascular: PRESENT: chest pain. ABSENT: dyspnea on exertion, edema, orthropnea, palpitations Respiratory: ABSENT: cough, hemoptysis Gastrointestinal: ABSENT: abdominal pain, constipation, diarrhea, hematemesis, hematochezia, nausea, vomiting Genitourinary: ABSENT: dysuria, hematuria Musculoskeletal: ABSENT: joint swelling Integumentary: ABSENT: rash, wounds Neurological: ABSENT: abnormal gait, abnormal speech, confusion, dizziness, focal weakness, syncope Psychiatric: ABSENT: anxiety, depression, homidical ideation, suicidal ideation Endocrine: ABSENT: cold intolerance, heat intolerance, menstrual abnormalities, polydipsia, polyuria Hematologic/Lymphatic: ABSENT: easy bleeding, easy bruising, lymphadenopathy Physical Exam Vital Signs: Temp Pulse Resp BP Pulse Ox 97.8 F 65 18 112/54 L 90 L 04/13/19 07:58 04/13/19 07:58 04/13/19 07:58 04/13/19 07:58 04/13/19 07:58 Intake & Output 04/12/19 04/13/19 04/14/19 06:59 06:59 06:59 Intake Total 100 Balance 100 Weight 84.8 kg General appearance: PRESENT: no acute distress, well-developed, well-nourished Head exam: PRESENT: atraumatic, normocephalic Eye exam: PRESENT: conjunctiva pink, EOMI, PERRLA. ABSENT: scleral icterus Ear exam: PRESENT: normal external ear exam Mouth exam: PRESENT: moist, tongue midline Neck exam: PRESENT: full ROM. ABSENT: carotid bruit, JVD, lymphadenopathy, thyromegaly Respiratory exam: PRESENT: clear to auscultation lele Cardiovascular exam: PRESENT: RRR. ABSENT: diastolic murmur, rubs, systolic murmur Vascular exam: PRESENT: normal capillary refill GI/Abdominal exam: PRESENT: normal bowel sounds, soft. ABSENT: distended, guarding, mass, organolmegaly, rebound, tenderness Rectal exam: PRESENT: deferred Extremities exam: PRESENT: pedal edema Additional comments: Left lower extremities ulcer is present on the heel area Neurological exam: PRESENT: alert, awake, oriented to person, oriented to place, oriented to time, oriented to situation, CN II-XII grossly intact. ABSENT: motor sensory deficit Psychiatric exam: PRESENT: appropriate affect, normal mood. ABSENT: homicidal ideation, suicidal ideation Skin exam: PRESENT: dry, intact, warm. ABSENT: cyanosis, rash Results Laboratory Results: 04/13/19 05:43 04/13/19 05:43 04/12/19 04/12/19 04/12/19 19:00 20:00 20:00 WBC 11.0 H RBC 3.00 L Hgb 9.3 L Hct 28.1 L MCV 94 MCH 31.1 MCHC 33.3 RDW 17.9 H Plt Count 191 Seg Neutrophils % 83.2 H Sodium 138.4 Potassium 3.6 Chloride 102 Carbon Dioxide 28 Anion Gap 8 BUN 29 H Creatinine 0.77 Est GFR ( Amer) > 60 Glucose 264 H Calcium 9.0 Total Bilirubin 0.9 AST 21 Alkaline Phosphatase 262 H Total Protein 7.6 Albumin 3.3 L Urine Color YELLOW Urine Appearance SLIGHTLY-CLOUDY Urine pH 5.0 Ur Specific [place] 1.012 Urine Protein 100 H Urine Glucose (UA) 50 H Urine Ketones NEGATIVE Urine Blood NEGATIVE Urine Nitrite NEGATIVE Ur Leukocyte Esterase NEGATIVE Urine WBC (Auto) 2 Urine RBC (Auto) 3 04/13/19 04/13/19 05:43 05:43 WBC 6.1 RBC 2.92 L Hgb 9.2 L Hct 27.2 L MCV 93 MCH 31.4 MCHC 33.8 RDW 17.5 H Plt Count 163 Seg Neutrophils % 72.8 Sodium 138.8 Potassium 4.1 Chloride 105 Carbon Dioxide 25 Anion Gap 9 BUN 34 H Creatinine 0.82 Est GFR ( Amer) > 60 Glucose 228 H Calcium 8.9 Total Bilirubin 1.2 AST 25 Alkaline Phosphatase 225 H Total Protein 6.9 Albumin 3.1 L Urine Color Urine Appearance Urine pH Ur Specific [place]frey Urine Protein Urine Glucose (UA) Urine Ketones Urine Blood Urine Nitrite Ur Leukocyte Esterase Urine WBC (Auto) Urine RBC (Auto) 04/12/19 04/13/19 04/13/19 20:00 05:43 05:43 Creatine Kinase < 20 L CK-MB (CK-2) 1.04 Troponin I 0.042 0.030 NT-Pro-B Natriuret Pep 8470 H Impressions: Chest X-Ray 04/12/19 15:51 IMPRESSION: Worsening patchy opacities in the right lung suspicious for pneumonia. Head CT 04/12/19 16:04 IMPRESSION: Expected evolving appearance of the large right temporal lobe hemorrhage. No midline shift. No acute finding. EVIDENCE OF ACUTE STROKE: NO. Assessment & Plan - Diagnosis (1) Chest pain Qualifiers: Chest pain type: unspecified Qualified Code(s): R07.9 - Chest pain, unspecified Is this a current diagnosis for this admission?: Yes Plan: Will rule out the acute coronary syndromes consult the cardiology Dr. CELAYA for further evaluations (2) Headache Qualifiers: Headache type: unspecified Headache chronicity pattern: episodic headache Intractability: not intractable Qualified Code(s): R51 - Headache Is this a current diagnosis for this admission?: Yes Plan: Recent intracranial hemorrhage per the patient with chronic irritations headache as per discussed with the neurosurgery continues the Fioricet and the Tylenol (3) Hospital-acquired pneumonia Is this a current diagnosis for this admission?: Yes Plan: Continues the IV antibiotics (4) Acute on chronic systolic (congestive) heart failure Is this a current diagnosis for this admission?: Yes Plan: Start IV Lasix (5) Anemia Qualifiers: Anemia type: other cause Is this a current diagnosis for this admission?: Yes (6) COPD (chronic obstructive pulmonary disease) Qualifiers: COPD type: unspecified COPD Is this a current diagnosis for this admission?: Yes Plan: As the PRN nebulizer treatments (7) Coronary artery disease Qualifiers: Coronary Disease-Associated Artery/Lesion type: unspecified vessel or lesion type Associated angina: without angina Is this a current diagnosis for this admission?: Yes Plan: Consult the cardiology (8) Decubitus ulcer of left heel, stage 4 Is this a current diagnosis for this admission?: Yes Plan: dressing change (9) Diabetes mellitus type 2 in obese Is this a current diagnosis for this admission?: Yes Plan: Sliding scale (10) Noncompliance Is this a current diagnosis for this admission?: Yes (11) HTN (hypertension) Qualifiers: Hypertension type: essential hypertension Is this a current diagnosis for this admission?: Yes Plan: Current medications (12) Hx of stroke without residual deficits Is this a current diagnosis for this admission?: Yes (13) S/P CABG (coronary artery bypass graft) Is this a current diagnosis for this admission?: Yes - Time Time Spent: 30 to 50 Minutes Medications reviewed and adjusted accordingly: Yes Anticipated discharge: Home Within: Other - Inpatient Certification Based on my medical assessment, after consideration of the patient's comorbidities, presenting symptoms, or acuity I expect that the services needed warrant INPATIENT care.: Yes I certify that my determination is in accordance with my understanding of Medicare's requirements for reasonable and necessary INPATIENT services [42 CFR 412.3e].: Yes Medical Necessity: Failure to Improve With Outpatient Therapy, Significant Comorbidiites Make Outpatient Treatment Too Risky, Need Close Monitoring Due to Risk of Patient Decompensation, Need for IV Antibiotics Post Hospital Care: D/C [employer] Documentation - Plan Summary Plan Summary: Admit the patient to the hospital see MD orders
[2019-04-13] MEDS: GUAIFENESIN 600 MG TABLET.SA PO SCH ×2 (11:57→21:30)
[2019-04-13] MEDS: IPRATROPIUM/ALBUTEROL 0.5-2.5 MG/3 ML AMPUL NEB PRN ×2 (16:19→20:19)
--- NOTE | 2019-04-13 18:32 | PDOC CONSULTATION ---
Consultation-Blank Consultation: Cardiology consultation by Dr. Gema Garcia on 04/13/2019. Patient seen at 3:45 PM REASON FOR CONSULTATION: Patient with headache and chest pressure. Patient has a history of coronary artery disease history of old OR and history of coronary artery bypass graft surgery in the past. CONSULT REQUESTING PHYSICIAN: Dr. Marquis Dyer HISTORY OF PRESENT ILLNESS: Patient is a very vague historian, and also not very precise in the history. Patient admitted with a history of headaches and chest pressure. The patient states the stress pressure is usually at rest but sometimes with exertion. She is not able to see how long it lasts. There is no associated symptoms. Of note the patient in early March 2019 came into the emergency room with headache and was found to have uncontrolled hypertension. She had a right temporal lobe hemorrhage which is large and spreading into the right parietal lobe. At that time her urine drug screen was positive for cocaine. She was transferred to [facility] in [place] where she was treated with steroids. Surgical intervention was not recommended at that time by neurosurgery. With medical treatment her hemorrhage had been stable. She also has a history of coronary artery disease old OR. History of peripheral vascular disease with nonhealing ulcers of the legs and sees wound care in [place] periodically. She also has a history of sleep apnea and uses CPAP. She has history of hypertension which is difficult to control. It is not clear whether the patient has been noncompliant with medications, since she is definitely noncompliant with office visits. She denies any palpitations or recurrence of symptoms suggestive of recurrence of atrial fibrillation. The last admission prior to March here and also was when she was admitted with chest pressure and abdominal pain with a negative work-up. At that time she had nosebleeds. Initially her aspirin and Plavix was discontinued and also her Eliquis was discontinued. There was no recurrence of atrial fibrillation during that admission or after that. Past Medical History Cardiac Medical History: Reports: Congestive Heart Failure, Coronary Artery Disease, Myocardial Infarction, Hyperlipidema, Hypertension, Peripheral Vascular Disease Pulmonary Medical History: Reports: Bronchitis. She has a history of COPD and sleep apnea. Endocrine Medical History: Reports: Diabetes Mellitus Type 1, Diabetes Mellitus Type 2 Malignancy Medical History: GI Medical History: Reports: Diverticulitis - diverticulosis Musculoskeltal Medical History: Psychiatric Medical History: Infectious Medical History: PSYCHIATRIC: History of depression present. No suicidal ideation. 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 Treated medically. Past Surgical History Past Surgical History: Reports: Coronary Artery Bypass Graft - May 16 2011, Tonsillectomy, Vascular Surgery. RESUSCITATION status: The patient is a full code. Her daughter is her surrogate healthcare decision maker. Current Medications Generic Name Dose Route Start Last Admin Trade Name Freq PRN Reason Stop Dose Admin Acetaminophen 650 mg 04/12/19 22:25 Tylenol 325 Mg Tablet PO 05/12/19 22:24 Q4HP PRN pain or temp greater than 101F Acetaminophen/Butalbital/Caffeine 1 tab 04/13/19 18:55 Fioricet (50-325-40 Mg) Tablet PO 05/13/19 18:54 Q6HP PRN FOR HEADACHE Albuterol/Ipratropium 3 ml 04/12/19 22:25 04/13/19 20:19 Duoneb 3 Ml Ampul NEB 05/12/19 22:24 3 ml RTQ4HP PRN Administration SHORTNESS OF BREATH Atorvastatin Calcium 20 mg 04/13/19 22:00 04/13/19 21:30 Lipitor 20 Mg Tablet PO 05/13/19 21:59 20 mg QHS OK Administration Carvedilol 12.5 mg 04/13/19 22:00 04/13/19 21:30 Coreg 12.5 Mg Tablet PO 05/13/19 21:59 12.5 mg Q12 OK Administration Dextrose 12.5 gm 04/12/19 22:31 Dextrose Inj 50% Syringe (25 Gm/50 Ml) IV 05/12/19 22:30 PRN PRN FOR BG 50-69 IN ALERT PATIENT Protocol Dextrose 25 gm 04/12/19 22:31 Dextrose Inj 50% Syringe (25 Gm/50 Ml) IV 05/12/19 22:30 PRN PRN PER PROTOCOL Protocol Dicyclomine HCl 10 mg 04/13/19 22:00 Bentyl 10 Mg Capsule PO 05/13/19 21:59 ACHS OK Docusate Sodium 100 mg 04/13/19 18:53 Colace 100 Mg Capsule PO 05/13/19 18:52 BIDP PRN FOR CONSTIPATION Escitalopram Oxalate 10 mg 04/13/19 22:00 04/13/19 21:30 Lexapro 10 Mg Tablet PO 05/13/19 21:59 10 mg QHS OK Administration Famotidine 20 mg 04/14/19 10:00 Pepcid 20 Mg Tablet PO 05/14/19 09:59 BID OK Furosemide 20 mg 04/12/19 22:45 04/13/19 21:34 Lasix Inj/Pf 20 Mg/2 Ml Sdv IV 05/12/19 22:44 20 mg Q12 OK Administration Gabapentin 300 mg 04/13/19 22:00 04/13/19 21:30 Neurontin 300 Mg Capsule PO 05/13/19 21:59 300 mg Q8 OK Administration Glucagon 1 mg 04/12/19 22:31 Glucagen Inj 1 Mg Vial IM 05/12/19 22:30 PRN PRN Evaluate for BG < 70 Protocol Glucose 15 gm 04/12/19 22:31 Glutose 40% Gel 15 Gm Tube PO 05/12/19 22:30 PRN PRN FOR BG 50-69 IN ALERT PATIENT Protocol Glucose 30 gm 04/12/19 22:31 Glutose 40% Gel 15 Gm Tube PO 05/12/19 22:30 PRN PRN FOR BG < 50 IN ALERT PATIENT Protocol Guaifenesin 600 mg 04/12/19 23:00 04/13/19 21:30 Mucinex Sr 600 Mg Tablet.Sa PO 05/12/19 22:59 600 mg Q12 OK Administration Piperacillin Sod/Tazobactam 100 mls @ 200 mls/hr 04/13/19 03:00 04/13/19 18:18 Sod 3.375 gm/ Sodium Chloride IV 04/20/19 02:59 Infused Q6A [facility] Infusion Insulin Human Lispro 0 - 12 unit 04/13/19 08:00 04/13/19 18:16 Humalog Insulin 100 Unit/1 Ml 3 Ml Vial SUBCUT 05/13/19 07:59 Not Given ACHS [facility] Protocol Oxycodone/Acetaminophen 1 tab 04/12/19 22:33 04/13/19 18:27 Percocet 5-325 Mg Tablet PO 04/19/19 22:32 1 tab Q6HP PRN Administration FOR PAIN Patient Own Medication 1 mg 04/13/19 22:00 Dexamethasone [Dexamethasone] PO 05/13/19 21:59 Q12 OK Sodium Chloride 2.5 ml 04/13/19 06:00 04/13/19 21:33 Saline Flush 2.5 Ml Monoject Prefil Syrin IV 05/13/19 05:59 2.5 ml Q8 OK Administration Discontinued Medications Generic Name Dose Route Start Last Admin Trade Name Hanane REYESN Reason Stop Dose Admin Acetaminophen 975 mg 04/12/19 16:14 04/12/19 16:31 Tylenol 325 Mg Tablet PO 04/12/19 16:15 975 mg NOW ONE Administration Albuterol/Ipratropium 3 ml 04/12/19 18:26 04/12/19 19:00 Duoneb 3 Ml Ampul NEB 04/12/19 18:27 3 ml NOW ONE Administration Carvedilol 12.5 mg 04/12/19 18:26 04/12/19 19:00 Coreg 12.5 Mg Tablet PO 04/12/19 18:27 12.5 mg NOW ONE Administration Hydralazine HCl 100 mg 04/12/19 18:26 04/12/19 19:00 Apresoline 50 Mg Tablet PO 04/12/19 18:27 100 mg NOW ONE Administration Piperacillin Sod/Tazobactam Sod 3.375 gm 04/12/19 17:13 04/12/19 22:45 Zosyn Inj 3.375 Gm Vial IV 04/12/19 17:14 Not Given IVBAG (ED) ONE Piperacillin Sod/Tazobactam Sod 3.375 gm 04/12/19 21:00 04/12/19 22:01 Zosyn Inj 3.375 Gm Vial IV 04/12/19 21:01 3.375 gm IVBAG (ED) ONE Administration Piperacillin Sod/Tazobactam Sod Confirm 04/13/19 03:41 04/13/19 04:28 Zosyn Inj 3.375 Gm Vial Administered 04/13/19 03:42 Not Given Dose 3.375 gm IV .STK-MED ONE Vancomycin HCl 1,500 mg 04/12/19 19:00 04/12/19 22:45 Vancocin Inj 1000 Mg Vial IV 04/12/19 19:01 Not Given IVBAG (ED) ONE Vancomycin HCl 1,500 mg 04/12/19 21:15 04/12/19 23:01 Vancocin Inj 1000 Mg Vial IV 04/12/19 21:16 1,500 mg IVBAG (ED) ONE Administration Social History Smoking Status: Former Smoker Frequency of Alcohol Use: None Hx Recreational Drug Use: No Drugs: None Hx Prescription Drug Abuse: No - Advance Directive Resuscitation Status: Full Code. Her daughter is her surrogate healthcare decision maker. Family History Family History: CAD, Hyperlipidemia, Hypertension Parental Family History Reviewed: Yes Children Family History Reviewed: Yes Sibling(s) Family History Reviewed.: Yes Medication/Allergy Amlodipine Besylate [Norvasc 10 mg Tablet] 10 mg PO DAILY 11/30/18 Ascorbic Acid [Vitamin C 500 mg Tablet] 500 mg PO DAILY 11/30/18 Atorvastatin Calcium [Lipitor 20 mg Tablet] 20 mg PO QHS 11/30/18 Docusate Sodium [Colace 100 mg Capsule] 100 mg PO BIDP PRN 11/30/18 Ferrous Sulfate [Feosol 325 mg Tablet] 325 mg PO DAILY 11/30/18 Furosemide [Lasix 20 mg Tablet] 40 mg PO BID 11/30/18 Valsartan [Diovan 160 mg Tablet] 160 mg PO DAILY 11/30/18 Clopidogrel Bisulfate [Plavix 75 mg Tablet] 75 mg PO DAILY 01/06/19 Gabapentin [Neurontin 300 mg Capsule] 300 mg PO Q8 01/06/19 Insulin Degludec [Tresiba Flextouch U-100] 40 unit SQ DAILY 01/06/19 Apixaban [Eliquis 2.5 mg Tablet] 2.5 mg PO BID 04/13/19 Carvedilol [Coreg 12.5 mg Tablet] 12.5 mg PO Q12 04/13/19 Cholecalciferol (Vitamin D3) [Vitamin D3 1000 Unit Tablet] 2,000 unit PO DAILY 04/13/19 Dexamethasone 1 mg PO Q12 04/13/19 Dicyclomine HCl [Bentyl 10 mg Capsule] 10 mg PO ACHS 04/13/19 Famotidine [Pepcid] 20 mg PO BID 04/13/19 Hydralazine HCl 100 mg PO Q8 04/13/19 Mesalamine [Asacol Hd] 800 mg PO TID 04/13/19 Allergies/Adverse Reactions: duloxetine Allergy (Verified 01/18/19 22:37) pregabalin [From Lyrica] Allergy (Verified 01/18/19 22:37) Swelling of hands and face Review of Systems Constitutional: ABSENT: chills, fever(s), headache(s), weight gain, weight loss Eyes: ABSENT: visual disturbances Ears: ABSENT: hearing changes Cardiovascular: PRESENT: chest pain. ABSENT: dyspnea on exertion, edema, orthropnea, palpitations Respiratory: ABSENT: cough, hemoptysis Gastrointestinal: PRESENT: abdominal pain. ABSENT: constipation, diarrhea, hematemesis, hematochezia, nausea, vomiting Genitourinary: ABSENT: dysuria, hematuria Musculoskeletal: ABSENT: joint swelling Integumentary: ABSENT: rash, wounds Neurological: ABSENT: abnormal gait, abnormal speech, confusion, dizziness, focal weakness, syncope. Recent large right lower temporal lobe hemorrhage spreading into the right parietal lobe for which she was admitted environment and treated with steroids. At that time I blood pressure was elevated/uncontrolled and her urine drug screen was positive for cocaine. Psychiatric: ABSENT: anxiety, depression, homidical ideation, suicidal ideation Endocrine: ABSENT: cold intolerance, heat intolerance, menstrual abnormalities, polydipsia, polyuria Hematologic/Lymphatic: ABSENT: easy bleeding, easy bruising, lymphadenopathy. There is no other symptoms systems review is negative or pertinent for current admission. PHYSICAL EXAMINATION: The patient moderately obese. In no acute distress. Selected Entries 04/13/19 17:35 Temperature 98.3 F Temperature Axillary Source Pulse Rate 72 Respiratory 18 Rate Blood Pressure 125/58 L Blood Pressure 80 Mean BP Location Left Arm BP Position Supine O2 Sat by Pulse 91 L Oximetry Oxygen Delivery Room Air Method HEENT: Head is atraumatic/normocephalic. EYES: Pupils are equal round regular reactive to light accommodation external ocular movements are normal. There is no conjunctival pallor there is no scleral icterus. ENT is negative. Neck is supple there is no JVD carotids are equal there is no bruit there is no lymphadenopathy there is no goiter trachea is central.Lungs: There is diminished air entry and prolonged expiration without any rhonchi rales or wheezing. On percussion there is hyperresonance throughout. There are no rales of CHF. HEART: S1-S2 is heard there is no S3 gallop there is no S4 gallop there is a systolic murmur in the left sternal border and apex there is no rub. ABDOMEN: Abdomen is soft nontender there is no hepatosplenomegaly. Bowel sounds well heard there are no tender areas of masses. EXTREMITIES femorals are diminished. Leg pulses are difficult to palpate. There are no femoral bruits. There is dressing on the ulcers of both nonhealing ulcers of the feet which are. There is no pedal edema. There is no DVT or cellulitis there is no calf tenderness. 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 PSYCHIATRIC: The patient's judgment and insight are intact her affect is normal. EKG:INUS RHYTHM [LVHREP] . LVH WITH SECONDARY REPOLARIZATION ABNORMALITY [LQTB] . BORDERLINE PROLONGED QT INTERVAL. Labs- Entire Visit 04/12/19 04/12/19 04/12/19 19:00 20:00 20:00 WBC 11.0 H RBC 3.00 L Hgb 9.3 L Hct 28.1 L MCV 94 MCH 31.1 MCHC 33.3 RDW 17.9 H Plt Count 191 Lymph % (Auto) 7.6 L George % (Auto) 8.1 Eos % (Auto) 0.8 Baso % (Auto) 0.3 Absolute Neuts (auto) 9.2 H Absolute Lymphs (auto) 0.8 Absolute Monos (auto) 0.9 Absolute Eos (auto) 0.1 Absolute Basos (auto) 0.0 Seg Neutrophils % 83.2 H Sodium 138.4 Potassium 3.6 Chloride 102 Carbon Dioxide 28 Anion Gap 8 BUN 29 H Creatinine 0.77 Est GFR ( Amer) > 60 Est GFR (MDRD) Non-Af > 60 Glucose 264 H POC Glucose Calcium 9.0 Total Bilirubin 0.9 Direct Bilirubin 0.6 H Neonat Total Bilirubin Not Reportable Neonat Direct Bilirubin Not Reportable Neonat Indirect Bili Not Reportable AST 21 ALT 18 Alkaline Phosphatase 262 H Creatine Kinase CK-MB (CK-2) Troponin I NT-Pro-B Natriuret Pep Total Protein 7.6 Albumin 3.3 L Urine Color YELLOW Urine Appearance SLIGHTLY-CLOUDY Urine pH 5.0 Ur Specific [place] 1.012 Urine Protein 100 H Urine Glucose (UA) 50 H Urine Ketones NEGATIVE Urine Blood NEGATIVE Urine Nitrite NEGATIVE Urine Bilirubin NEGATIVE Urine Urobilinogen NEGATIVE Ur Leukocyte Esterase NEGATIVE Urine WBC (Auto) 2 Urine RBC (Auto) 3 Urine Bacteria (Auto) TRACE Squamous Epi Cells Auto 3 Urine Ascorbic Acid 20 H 04/12/19 04/13/19 04/13/19 20:00 05:43 05:43 WBC 6.1 RBC 2.92 L Hgb 9.2 L Hct 27.2 L MCV 93 MCH 31.4 MCHC 33.8 RDW 17.5 H Plt Count 163 Lymph % (Auto) 14.0 George % (Auto) 11.6 Eos % (Auto) 1.1 Baso % (Auto) 0.5 Absolute Neuts (auto) 4.4 Absolute Lymphs (auto) 0.9 Absolute Monos (auto) 0.7 Absolute Eos (auto) 0.1 Absolute Basos (auto) 0.0 Seg Neutrophils % 72.8 Sodium 138.8 Potassium 4.1 Chloride 105 Carbon Dioxide 25 Anion Gap 9 BUN 34 H Creatinine 0.82 Est GFR ( Amer) > 60 Est GFR (MDRD) Non-Af > 60 Glucose 228 H POC Glucose Calcium 8.9 Total Bilirubin 1.2 Direct Bilirubin 0.6 H Neonat Total Bilirubin Not Reportable Neonat Direct Bilirubin Not Reportable Neonat Indirect Bili Not Reportable AST 25 ALT 17 Alkaline Phosphatase 225 H Creatine Kinase < 20 L CK-MB (CK-2) Troponin I 0.042 NT-Pro-B Natriuret Pep 8470 H Total Protein 6.9 Albumin 3.1 L Urine Color Urine Appearance Urine pH Ur Specific [place] Urine Protein Urine Glucose (UA) Urine Ketones Urine Blood Urine Nitrite Urine Bilirubin Urine Urobilinogen Ur Leukocyte Esterase Urine WBC (Auto) Urine RBC (Auto) Urine Bacteria (Auto) Squamous Epi Cells Auto Urine Ascorbic Acid 04/13/19 04/13/19 04/13/19 05:43 07:57 11:57 WBC RBC Hgb Hct MCV MCH MCHC RDW Plt Count Lymph % (Auto) George % (Auto) Eos % (Auto) Baso % (Auto) Absolute Neuts (auto) Absolute Lymphs (auto) Absolute Monos (auto) Absolute Eos (auto) Absolute Basos (auto) Seg Neutrophils % Sodium Potassium Chloride Carbon Dioxide Anion Gap BUN Creatinine Est GFR ( Amer) Est GFR (MDRD) Non-Af Glucose POC Glucose 228 H 123 H Calcium Total Bilirubin Direct Bilirubin Neonat Total Bilirubin Neonat Direct Bilirubin Neonat Indirect Bili AST ALT Alkaline Phosphatase Creatine Kinase CK-MB (CK-2) 1.04 Troponin I 0.030 NT-Pro-B Natriuret Pep Total Protein Albumin Urine Color Urine Appearance Urine pH Ur Specific [place] Urine Protein Urine Glucose (UA) Urine Ketones Urine Blood Urine Nitrite Urine Bilirubin Urine Urobilinogen Ur Leukocyte Esterase Urine WBC (Auto) Urine RBC (Auto) Urine Bacteria (Auto) Squamous Epi Cells Auto Urine Ascorbic Acid 04/13/19 04/13/19 17:35 21:38 WBC RBC Hgb Hct MCV MCH MCHC RDW Plt Count Lymph % (Auto) George % (Auto) Eos % (Auto) Baso % (Auto) Absolute Neuts (auto) Absolute Lymphs (auto) Absolute Monos (auto) Absolute Eos (auto) Absolute Basos (auto) Seg Neutrophils % Sodium Potassium Chloride Carbon Dioxide Anion Gap BUN Creatinine Est GFR ( Amer) Est GFR (MDRD) Non-Af Glucose POC Glucose 165 H 175 H Calcium Total Bilirubin Direct Bilirubin Neonat Total Bilirubin Neonat Direct Bilirubin Neonat Indirect Bili AST ALT Alkaline Phosphatase Creatine Kinase CK-MB (CK-2) Troponin I NT-Pro-B Natriuret Pep Total Protein Albumin Urine Color Urine Appearance Urine pH Ur Specific [place] Urine Protein Urine Glucose (UA) Urine Ketones Urine Blood Urine Nitrite Urine Bilirubin Urine Urobilinogen Ur Leukocyte Esterase Urine WBC (Auto) Urine RBC (Auto) Urine Bacteria (Auto) Squamous Epi Cells Auto Urine Ascorbic Acid Chest X-Ray 04/12/19 15:51 IMPRESSION: Worsening patchy opacities in the right lung suspicious for pneumonia. Head CT 04/12/19 16:04 IMPRESSION: Expected evolving appearance of the large right temporal lobe hemorrhage. No midline shift. No acute finding. EVIDENCE OF ACUTE STROKE: NO. IMPRESSION/RECOMMENDATION: 1. Chest pressure/chest pain: No evidence of elevated troponin I or acute EKG changes. The patient does have a history of coronary artery disease and history of coronary bypass graft surgery. Hence later would recommend that the patient have IV Lexiscan Cardiolite stress test. But would wait for at least 6 weeks since the patient had a cerebral event in early March 2019. Recommend adding Ranexa. 2. 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 Would medical Simi control the patient blood pressure and keep it below 140 systolic. 3. CHRONIC DIASTOLIC HEART FAILURE: At present compensated. At present the patient's ejection fraction is normal. 4. Paroxysmal atrial fibrillation: At present the patient is in sinus rhythm. Note in view of the patient's nosebleeds and prior to her intracranial hemorrhage the patient's aspirin Plavix and Eliquis were all stopped and the prior admission in [place]. 5. HYPERTENSION: Well controlled. Continue her current medications. 6. CORONARY ARTERY DISEASE: Prior history of myocardial infarction and history of coronary artery bypass graft surgery. No anginal symptoms. 7ut would recommend since the patient is not a good historian to get a IV Lexiscan Cardiolite stress test which is been ordered for tomorrow. 8. NONCOMPLIANCE.: The importance of compliance with diet and medications stressed with the patient. 9. CHRONIC OBSTRUCTIVE PULMONARY DISEASE: Continue current inhalers. 10. PERIPHERAL ARTERIAL DISEASE.: Patient with nonhealing ulcers of her both feet./Heels. 11. OBSTRUCTIVE SLEEP APNEA we will continue the patient on CPAP and continue the patient's Symbicort and Advair Diskus. 12.. DIABETES MELLITUS with peripheral arterial disease. Medications reviewed. Medications added. Medical regimen and management plan discussed with Dr. Dyer. Medical decision making is of high complexity. 60 minutes spent as patient more than 50% of time spent in direct patient care. Will follow.
[2019-04-13] MEDS ORDERED: DOCUSATE SODIUM 100 MG CAPSULE PO PRN (18:53)
[2019-04-13] MEDS: CARVEDILOL 12.5 MG TABLET PO SCH (21:30)
[2019-04-13] MEDS: ATORVASTATIN CALCIUM 20 MG TABLET PO SCH (21:30)
[2019-04-13] MEDS: ESCITALOPRAM OXALATE 10 MG TABLET PO SCH (21:30)
[2019-04-13] MEDS: GABAPENTIN 300 MG CAPSULE PO SCH (21:30)
[2019-04-13] MEDS ORDERED: DEXAMETHASONE 1 MG PO SCH (22:00)
[2019-04-13] MEDS: DICYCLOMINE HCL 10 MG CAPSULE PO SCH (22:30)
[2019-04-13] MEDS: RANOLAZINE 500 MG TAB.SR.12H PO SCH (22:30)
[2019-04-14] MEDS: PIPERACILLIN SODIUM/TAZOBACTAM 3.375 GM in NORMAL SALINE 100 ML IV SCH ×4 (03:45→21:08)
[2019-04-14] MEDS: GABAPENTIN 300 MG CAPSULE PO SCH ×3 (05:46→21:08)
[2019-04-14] MEDS: OXYCODONE-ACETAMINOPHEN 5-325 MG TABLET PO PRN ×2 (05:46→21:08)
[2019-04-14] MEDS: IPRATROPIUM/ALBUTEROL 0.5-2.5 MG/3 ML AMPUL NEB PRN ×3 (08:00→15:36)
[2019-04-14] MEDS: INSULIN LISPRO 100 UNIT/ML 3 ML VIAL SUBCUT SCH ×4 (08:29→22:59)
[2019-04-14] MEDS: DICYCLOMINE HCL 10 MG CAPSULE PO SCH ×4 (08:30→21:11)
[2019-04-14 08:55] LABS: ABSOLUTE EOSINOPHILS # (AUTO) 0.1 10^3/uL (0.0-0.6); ABSOLUTE LYMPHOCYTES (AUTO) 0.7 10^3/uL (0.5-4.7); ABSOLUTE MONOCYTES (AUTO) 0.9 10^3/uL (0.1-1.4); ABSOLUTE NEUT (AUTO) 5.1 10^3/uL (1.7-8.2); BASOPHILS % (AUTO) 0.4 % (0-2); EOSINOPHILS % (AUTO) 1.8 % (0-6); HEMATOCRIT 28.2 % (36.0-47.0); HEMOGLOBIN 9.5 g/dL (12.0-15.5); LYMPHOCYTES % (AUTO) 10.6 % (13-45); MEAN CORPUSCULAR HEMOGLOBIN 31.4 pg (27.0-33.4); MEAN CORPUSCULAR HGB CONC 33.7 g/dL (32.0-36.0); MEAN CORPUSCULAR VOLUME 93 fl (80-97); PLATELET COUNT 153 10^3/uL (150-450); RED BLOOD COUNT 3.02 10^6/uL (3.72-5.28); RED CELL DISTRIBUTION WIDTH 17.6 % (11.5-14.0); SEGMENTED NEUTROPHILS % (AUTO) 74.2 % (42-78); TOTAL CELLS COUNTED % (AUTO) 100 %; WHITE BLOOD COUNT 6.9 10^3/uL (4.0-10.5)
[2019-04-14 09:13] LABS: ALBUMIN 3.2 g/dL (3.5-5.0); ALKALINE PHOSPHATASE 311 U/L (38-126); ANION GAP 11 (5-19); ASPARTATE AMINO TRANSFERASE 42 U/L (14-36); BILIRUBIN,DIRECT 0.8 mg/dL (0.0-0.4); BLOOD UREA NITROGEN 37 mg/dL (7-20); CALCIUM 9.1 mg/dL (8.4-10.2); CARBON DIOXIDE 22 mmol/L (22-30); CHLORIDE 106 mmol/L (98-107); GLUCOSE 160 mg/dL (75-110); POTASSIUM 4.6 mmol/L (3.6-5.0); TOTAL PROTEIN 7.1 g/dL (6.3-8.2)
[2019-04-14] MEDS: CARVEDILOL 12.5 MG TABLET PO SCH ×2 (09:22→21:10)
[2019-04-14] MEDS: FAMOTIDINE 20 MG TABLET PO SCH ×2 (09:22→17:01)
[2019-04-14] MEDS: GUAIFENESIN 600 MG TABLET.SA PO SCH ×2 (09:23→21:10)
[2019-04-14] MEDS: RANOLAZINE 500 MG TAB.SR.12H PO SCH ×2 (09:23→21:10)
[2019-04-14] MEDS: FUROSEMIDE INJ/PF 20 MG/2 ML SDV IV SCH ×2 (09:23→21:08)
--- NOTE | 2019-04-14 09:50 | PDOC PROGRESS REPORT ---
Subjective Progress Note for:: 04/14/19 Subjective:: Patient is currently doing better currently denied any headache no chest pain no short of breath Reason For Visit: PNEUMONIA Physical Exam Vital Signs: Temp Pulse Resp BP Pulse Ox 98.5 F 60 18 135/70 H 100 04/14/19 03:31 04/14/19 03:31 04/14/19 03:31 04/14/19 03:31 04/14/19 03:31 Intake & Output 04/13/19 04/14/19 04/15/19 06:59 06:59 06:59 Intake Total 100 2165 Output Total 0 Balance 100 2165 Weight 84.8 kg 89.8 kg General appearance: PRESENT: no acute distress, well-developed, well-nourished Head exam: PRESENT: atraumatic, normocephalic Eye exam: PRESENT: conjunctiva pink, EOMI, PERRLA. ABSENT: scleral icterus Ear exam: PRESENT: normal external ear exam Mouth exam: PRESENT: moist, tongue midline Neck exam: PRESENT: full ROM. ABSENT: carotid bruit, JVD, lymphadenopathy, thyromegaly Respiratory exam: PRESENT: clear to auscultation lele Cardiovascular exam: PRESENT: RRR. ABSENT: diastolic murmur, rubs, systolic murmur Pulses: PRESENT: normal dorsalis pedis pul, +2 pedal pulses bilateral Vascular exam: PRESENT: normal capillary refill GI/Abdominal exam: PRESENT: normal bowel sounds, soft. ABSENT: distended, guarding, mass, organolmegaly, rebound, tenderness Rectal exam: PRESENT: deferred Extremities exam: PRESENT: pedal edema Neurological exam: PRESENT: alert, awake, oriented to person, oriented to place. ABSENT: motor sensory deficit Psychiatric exam: PRESENT: appropriate affect, normal mood. ABSENT: homicidal ideation, suicidal ideation Skin exam: PRESENT: dry, intact, warm. ABSENT: cyanosis, rash Results Laboratory Results: 04/14/19 08:14 04/14/19 08:14 04/14/19 04/14/19 08:14 08:14 WBC 6.9 RBC 3.02 L Hgb 9.5 L Hct 28.2 L MCV 93 MCH 31.4 MCHC 33.7 RDW 17.6 H Plt Count 153 Seg Neutrophils % 74.2 Sodium 139.3 Potassium 4.6 Chloride 106 Carbon Dioxide 22 Anion Gap 11 BUN 37 H Creatinine 0.97 Est GFR ( Amer) > 60 Glucose 160 H Calcium 9.1 Total Bilirubin 1.0 AST 42 H Alkaline Phosphatase 311 H Total Protein 7.1 Albumin 3.2 L 04/12/19 04/13/19 04/13/19 20:00 05:43 05:43 Creatine Kinase < 20 L CK-MB (CK-2) 1.04 Troponin I 0.042 0.030 NT-Pro-B Natriuret Pep 8470 H Impressions: Chest X-Ray 04/12/19 15:51 IMPRESSION: Worsening patchy opacities in the right lung suspicious for pneumonia. Head CT 04/12/19 16:04 IMPRESSION: Expected evolving appearance of the large right temporal lobe hemorrhage. No midline shift. No acute finding. EVIDENCE OF ACUTE STROKE: NO. Assessment & Plan - Diagnosis (1) Chest pain Qualifiers: Chest pain type: unspecified Qualified Code(s): R07.9 - Chest pain, unspecified Is this a current diagnosis for this admission?: Yes (2) Headache Qualifiers: Headache type: unspecified Headache chronicity pattern: episodic headache Intractability: not intractable Qualified Code(s): R51 - Headache Is this a current diagnosis for this admission?: Yes (3) Hospital-acquired pneumonia Is this a current diagnosis for this admission?: Yes (4) Acute on chronic systolic (congestive) heart failure Is this a current diagnosis for this admission?: Yes (5) Anemia Qualifiers: Anemia type: other cause Is this a current diagnosis for this admission?: Yes (6) COPD (chronic obstructive pulmonary disease) Qualifiers: COPD type: unspecified COPD Is this a current diagnosis for this admission?: Yes (7) Coronary artery disease Qualifiers: Coronary Disease-Associated Artery/Lesion type: unspecified vessel or lesion type Associated angina: without angina Is this a current diagnosis for this admission?: Yes (8) Decubitus ulcer of left heel, stage 4 Is this a current diagnosis for this admission?: Yes (9) Diabetes mellitus type 2 in obese Is this a current diagnosis for this admission?: Yes (10) Noncompliance Is this a current diagnosis for this admission?: Yes (11) HTN (hypertension) Qualifiers: Hypertension type: essential hypertension Is this a current diagnosis for this admission?: Yes (12) Hx of stroke without residual deficits Is this a current diagnosis for this admission?: Yes (13) S/P CABG (coronary artery bypass graft) Is this a current diagnosis for this admission?: Yes - Time Time Spent with patient: 25-34 minutes Level of Care: IMCU Medications reviewed and adjusted accordingly: Yes Anticipated discharge: Other Within: Other - Plan Summary Plan Summary: Continues to current medications getting better
--- NOTE | 2019-04-14 13:04 | Progress Note ---
Provider Note Provider Note: CARDIOLOGY PROGRESS NOTE by Dr. Gema Garcia on 04/14/2019. SUBJECTIVE: The patient still has a headache but states is tolerable. She has no further chest pressure or chest pain or discomfort. There is no shortness of breath. There is no PND orthopnea. There is no leg edema. There is no arrhythmia seen on the monitor. There is no TIA CVA symptoms. PHYSICAL EXAMINATION: The patient is moderately obese. In no acute distress. Selected Entries 04/14/19 08:00 Temperature 98.9 F Temperature Oral Source Pulse Rate 67 Respiratory 18 Rate Blood Pressure 151/72 H [Left Upper Arm ] Blood Pressure 98 Mean [Left Upper Arm] Blood Pressure Supine Position [Left Upper Arm] O2 Sat by Pulse 100 Oximetry Oxygen Delivery Nasal Cannula Method ( includes room air) Oxygen Flow 3.00 Rate HEENT: Head is atraumatic/normocephalic. EYES: Pupils are equal round regular reactive to light accommodation external ocular movements are normal. There is no conjunctival pallor there is no scleral icterus. ENT is negative. Neck is supple there is no JVD carotids are equal there is no bruit there is no lymphadenopathy there is no goiter trachea is central.Lungs: There is diminished air entry and prolonged expiration without any rhonchi rales or wheezing. On percussion there is hyperresonance throughout. There are no rales of CHF. HEART: S1-S2 is heard there is no S3 gallop there is no S4 gallop there is a systolic murmur in the left sternal border and apex there is no rub. ABDOMEN: Abdomen is soft nontender there is no hepatosplenomegaly. Bowel sounds well heard there are no tender areas of masses. EXTREMITIES femorals are diminished. Leg pulses are difficult to palpate. There are no femoral bruits. There is dressing on the ulcers of both nonhealing ulcers of the feet which are. There is no pedal edema. There is no DVT or cellulitis there is no calf tenderness. 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 PSYCHIATRIC: The patient's judgment and insight are intact her affect is normal. Labs- All tests 24 hr 04/13/19 04/13/19 04/14/19 17:35 21:38 08:14 WBC 6.9 RBC 3.02 L Hgb 9.5 L Hct 28.2 L MCV 93 MCH 31.4 MCHC 33.7 RDW 17.6 H Plt Count 153 Lymph % (Auto) 10.6 L Whitman % (Auto) 13.0 Eos % (Auto) 1.8 Baso % (Auto) 0.4 Absolute Neuts (auto) 5.1 Absolute Lymphs (auto) 0.7 Absolute Monos (auto) 0.9 Absolute Eos (auto) 0.1 Absolute Basos (auto) 0.0 Seg Neutrophils % 74.2 Sodium Potassium Chloride Carbon Dioxide Anion Gap BUN Creatinine Est GFR ( Amer) Est GFR (MDRD) Non-Af Glucose POC Glucose 165 H 175 H Calcium Total Bilirubin Direct Bilirubin Neonat Total Bilirubin Neonat Direct Bilirubin Neonat Indirect Bili AST ALT Alkaline Phosphatase Total Protein Albumin 04/14/19 04/14/19 04/14/19 08:14 08:27 11:20 WBC RBC Hgb Hct MCV MCH MCHC RDW Plt Count Lymph % (Auto) Whitman % (Auto) Eos % (Auto) Baso % (Auto) Absolute Neuts (auto) Absolute Lymphs (auto) Absolute Monos (auto) Absolute Eos (auto) Absolute Basos (auto) Seg Neutrophils % Sodium 139.3 Potassium 4.6 Chloride 106 Carbon Dioxide 22 Anion Gap 11 BUN 37 H Creatinine 0.97 Est GFR ( Amer) > 60 Est GFR (MDRD) Non-Af 58 L Glucose 160 H POC Glucose 162 H 202 H Calcium 9.1 Total Bilirubin 1.0 Direct Bilirubin 0.8 H Neonat Total Bilirubin Not Reportable Neonat Direct Bilirubin Not Reportable Neonat Indirect Bili Not Reportable AST 42 H ALT 26 Alkaline Phosphatase 311 H Total Protein 7.1 Albumin 3.2 L 04/14/19 12:32 WBC RBC Hgb Hct MCV MCH MCHC RDW Plt Count Lymph % (Auto) Whitman % (Auto) Eos % (Auto) Baso % (Auto) Absolute Neuts (auto) Absolute Lymphs (auto) Absolute Monos (auto) Absolute Eos (auto) Absolute Basos (auto) Seg Neutrophils % Sodium Potassium Chloride Carbon Dioxide Anion Gap BUN Creatinine Est GFR ( Amer) Est GFR (MDRD) Non-Af Glucose POC Glucose 187 H Calcium Total Bilirubin Direct Bilirubin Neonat Total Bilirubin Neonat Direct Bilirubin Neonat Indirect Bili AST ALT Alkaline Phosphatase Total Protein Albumin Chest X-Ray 04/12/19 15:51 IMPRESSION: Worsening patchy opacities in the right lung suspicious for pneumonia. Head CT 04/12/19 16:04 IMPRESSION: Expected evolving appearance of the large right temporal lobe hemorrhage. No midline shift. No acute finding. EVIDENCE OF ACUTE STROKE: NO. IMPRESSION/RECOMMENDATION: 1. Chest pressure: No evidence of elevated troponin I or acute EKG changes. The patient does have a history of coronary artery disease and history of coronary bypass graft surgery. Hence later would recommend that the patient have IV Lexiscan Cardiolite stress test. But would wait for at least 6 weeks since the patient had a cerebral event in early March 2019. Will avoid nitrates in view of the patient's already having headaches. We will increase the Ranexa to thousand milligrams p.o. p.o. twice daily. 2. 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 Would me lou Belcher control the patient blood pressure and keep it below 140 systolic. 3. CHRONIC DIASTOLIC HEART FAILURE: At present compensated. At present the patient's ejection fraction is normal. 4. Paroxysmal atrial fibrillation: At present the patient is in sinus rhythm. Note in view of the patient's nosebleeds and prior to her intracranial hemorrhage the patient's aspirin Plavix and Eliquis were all stopped and the prior admission in [place]. 5. HYPERTENSION: Well controlled. Continue her current medications. 6. CORONARY ARTERY DISEASE: Prior history of myocardial infarction and history of coronary artery bypass graft surgery. No anginal symptoms. 7ut would recommend since the patient is not a good historian to get a IV Lexiscan Cardiolite stress test which is been ordered for tomorrow. 8. NONCOMPLIANCE.: The importance of compliance with diet and medications stressed with the patient. 9. CHRONIC OBSTRUCTIVE PULMONARY DISEASE: Continue current inhalers. 10. PERIPHERAL ARTERIAL DISEASE.: Patient with nonhealing ulcers of her both feet./Heels. 11. OBSTRUCTIVE SLEEP APNEA we will continue the patient on CPAP and continue the patient's Symbicort and Advair Diskus. 12.. DIABETES MELLITUS with peripheral arterial disease. Medications reviewed. Medication increased. Medical regimen and management plan discussed with Dr. Dyer covering Dr. Bess. Medical decision making is of high complexity in view of the need to adjust the patient's medications. 40 minutes spent as patient more than 50% of time spent in direct patient care. Will follow.
[2019-04-14] MEDS: BUTALB/ACETAMINOPHEN/CAFFEINE 1 TAB EACH PO PRN (15:15)
[2019-04-14] MEDS: ATORVASTATIN CALCIUM 20 MG TABLET PO SCH (21:08)
[2019-04-14] MEDS: ESCITALOPRAM OXALATE 10 MG TABLET PO SCH (21:10)
[2019-04-15] MEDS: PIPERACILLIN SODIUM/TAZOBACTAM 3.375 GM in NORMAL SALINE 100 ML IV SCH ×4 (03:00→21:20)
[2019-04-15] MEDS: GABAPENTIN 300 MG CAPSULE PO SCH ×3 (05:07→21:21)
[2019-04-15] MEDS: OXYCODONE-ACETAMINOPHEN 5-325 MG TABLET PO PRN ×2 (05:07→17:01)
[2019-04-15 06:52] LABS: ABSOLUTE EOSINOPHILS # (AUTO) 0.2 10^3/uL (0.0-0.6); ABSOLUTE LYMPHOCYTES (AUTO) 0.9 10^3/uL (0.5-4.7); BASOPHILS % (AUTO) 0.5 % (0-2); EOSINOPHILS % (AUTO) 2.4 % (0-6); HEMATOCRIT 25.2 % (36.0-47.0); HEMOGLOBIN 8.5 g/dL (12.0-15.5); LYMPHOCYTES % (AUTO) 12.3 % (13-45); MEAN CORPUSCULAR HEMOGLOBIN 31.8 pg (27.0-33.4); MEAN CORPUSCULAR HGB CONC 33.8 g/dL (32.0-36.0); MEAN CORPUSCULAR VOLUME 94 fl (80-97); MONOCYTES % (AUTO) 13.8 % (3-13); PLATELET COUNT 140 10^3/uL (150-450); RED BLOOD COUNT 2.67 10^6/uL (3.72-5.28); RED CELL DISTRIBUTION WIDTH 16.6 % (11.5-14.0); TOTAL CELLS COUNTED % (AUTO) 100 %; WHITE BLOOD COUNT 7.1 10^3/uL (4.0-10.5)
[2019-04-15 07:20] LABS: ALKALINE PHOSPHATASE 326 U/L (38-126); ANION GAP 7 (5-19); ASPARTATE AMINO TRANSFERASE 42 U/L (14-36); BILIRUBIN,DIRECT 0.4 mg/dL (0.0-0.4); BILIRUBIN,TOTAL 0.8 mg/dL (0.2-1.3); BLOOD UREA NITROGEN 39 mg/dL (7-20); CALCIUM 8.7 mg/dL (8.4-10.2); CARBON DIOXIDE 25 mmol/L (22-30); CHLORIDE 106 mmol/L (98-107); GLUCOSE 134 mg/dL (75-110); POTASSIUM 4.9 mmol/L (3.6-5.0); TOTAL PROTEIN 6.7 g/dL (6.3-8.2)
[2019-04-15] MEDS: IPRATROPIUM/ALBUTEROL 0.5-2.5 MG/3 ML AMPUL NEB PRN ×4 (08:46→20:24)
[2019-04-15] MEDS: INSULIN LISPRO 100 UNIT/ML 3 ML VIAL SUBCUT SCH ×4 (09:11→22:12)
[2019-04-15] MEDS: FUROSEMIDE INJ/PF 20 MG/2 ML SDV IV SCH ×2 (09:20→21:22)
[2019-04-15] MEDS: GUAIFENESIN 600 MG TABLET.SA PO SCH ×2 (09:21→21:21)
[2019-04-15] MEDS: DICYCLOMINE HCL 10 MG CAPSULE PO SCH ×4 (09:21→21:21)
[2019-04-15] MEDS: RANOLAZINE 500 MG TAB.SR.12H PO SCH ×2 (09:21→21:22)
[2019-04-15] MEDS: FAMOTIDINE 20 MG TABLET PO SCH ×2 (09:21→22:11)
[2019-04-15] MEDS: CARVEDILOL 12.5 MG TABLET PO SCH ×2 (09:21→21:21)
--- NOTE | 2019-04-15 19:37 | PDOC PROGRESS REPORT ---
Subjective Progress Note for:: 04/15/19 Subjective:: Patient reported some improvement in her breathing. No chest pain. No fever or chills. No nausea or vomiting but still experience lower quadrant abdominal pain. Reason For Visit: PNEUMONIA Physical Exam Vital Signs: Temp Pulse Resp BP Pulse Ox 98.5 F 56 L 16 125/63 99 04/15/19 12:31 04/15/19 12:31 04/15/19 12:31 04/15/19 12:31 04/15/19 12:31 Intake & Output 04/14/19 04/15/19 04/16/19 06:59 06:59 06:59 Intake Total 2165 1516 480 Output Total 0 Balance 2165 1516 480 Weight 89.8 kg 89.8 kg General appearance: PRESENT: no acute distress, obese Head exam: PRESENT: atraumatic, normocephalic Eye exam: PRESENT: conjunctiva pink. ABSENT: scleral icterus Ear exam: PRESENT: normal external ear exam Mouth exam: PRESENT: moist Teeth exam: PRESENT: poor dentation Respiratory exam: PRESENT: clear to auscultation lele, decreased breath sounds - at lung bases Cardiovascular exam: PRESENT: RRR, +S1, +S2. ABSENT: diastolic murmur, rubs, systolic murmur Vascular exam: ABSENT: pallor GI/Abdominal exam: PRESENT: normal bowel sounds, soft. ABSENT: distended, guarding, mass, organolmegaly, rebound, tenderness Extremities exam: PRESENT: pedal edema Neurological exam: PRESENT: alert, awake, oriented to person, oriented to place, oriented to time, oriented to situation, CN II-XII grossly intact. ABSENT: motor sensory deficit Skin exam: PRESENT: dry, warm Results Laboratory Results: 04/15/19 06:41 04/15/19 06:41 04/15/19 04/15/19 06:41 06:41 WBC 7.1 RBC 2.67 L Hgb 8.5 L Hct 25.2 L MCV 94 MCH 31.8 MCHC 33.8 RDW 16.6 H Plt Count 140 L Seg Neutrophils % 71.0 Sodium 138.2 Potassium 4.9 Chloride 106 Carbon Dioxide 25 Anion Gap 7 BUN 39 H Creatinine 1.20 Est GFR ( Amer) 55 L Glucose 134 H Calcium 8.7 Total Bilirubin 0.8 AST 42 H Alkaline Phosphatase 326 H Total Protein 6.7 Albumin 3.0 L 04/12/19 04/13/19 04/13/19 20:00 05:43 05:43 Creatine Kinase < 20 L CK-MB (CK-2) 1.04 Troponin I 0.042 0.030 NT-Pro-B Natriuret Pep 8470 H Impressions: Chest X-Ray 04/12/19 15:51 IMPRESSION: Worsening patchy opacities in the right lung suspicious for pneumonia. Head CT 04/12/19 16:04 IMPRESSION: Expected evolving appearance of the large right temporal lobe hemorrhage. No midline shift. No acute finding. EVIDENCE OF ACUTE STROKE: NO. Assessment & Plan - Diagnosis (1) Hospital-acquired pneumonia Is this a current diagnosis for this admission?: Yes Plan: Continue IV Zosyn coverage. Follow up on culture findings. Obtain sputum for gram stain and culture. (2) Headache Qualifiers: Headache type: post-traumatic Headache chronicity pattern: unspecified pattern Intractability: not intractable Qualified Code(s): G44.309 - Post- traumatic headache, unspecified, not intractable Is this a current diagnosis for this admission?: Yes Plan: Patient recently suffered from hemorrhagic stroke. She was evaluated, treated and discharged from [facility]. Continue current medication management. (3) Chronic combined systolic and diastolic CHF (congestive heart failure) Is this a current diagnosis for this admission?: Yes Plan: Continue current medication management. Adjust medication as her blood pressure improves. (4) Diabetes mellitus type 2 in obese Is this a current diagnosis for this admission?: Yes Plan: Continue sliding scale coverage. 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 2 diabetes mellitus Qualifiers: Diabetic foot ulcer location: heel Non-pressure ulcer stage: unspecified non-pressure ulcer stage Qualified Code(s): E11.621 - Type 2 diabetes mellitus with foot ulcer; L97.429 - Non-pressure chronic ulcer of left heel and midfoot with unspecified severity Is this a current diagnosis for this admission?: Yes Plan: Maintain on local wound management (6) Hypertension Qualifiers: Hypertension type: essential hypertension Qualified Code(s): I10 - Ess ential (primary) hypertension Is this a current diagnosis for this admission?: Yes Plan: Continue current medication management. (7) CAD (coronary artery disease) Qualifiers: Coronary Disease-Associated Artery/Lesion type: unspecified vessel or lesion type [place] vs. transplanted heart: [place] heart Associated angina: without angina Qualified Code(s): I25.10 - Atherosclerotic heart disease of [place] coronary artery without angina pectoris Is this a current diagnosis for this admission?: Yes Plan: Continue current medication management. (8) Chronic use of opiate for therapeutic purpose Is this a current diagnosis for this admission?: Yes Plan: Continue current medication management. (9) Obesity (BMI 30-39.9) Is this a current diagnosis for this admission?: Yes Plan: Continue current medication management. - Time Time Spent with patient: 25-34 minutes Level of Care: IMCU Medications reviewed and adjusted accordingly: Yes Anticipated discharge: Home with Homehealth Within: Other - Inpatient Certification Based on my medical assessment, after consideration of the patient's comorbidities, presenting symptoms, or acuity I expect that the services needed warrant INPATIENT care.: Yes I certify that my determination is in accordance with my understanding of Medicare's requirements for reasonable and necessary INPATIENT services [42 CFR 412.3e].: Yes Medical Necessity: Significant Comorbidiites Make Outpatient Treatment Too Risky, Need Close Monitoring Due to Risk of Patient Decompensation, Need For Continuous Telemetry Monitoring, Need for IV Antibiotics, Risk of Complication if Not Cared For in Hospital, Risk of Diagnosis Which Will Require Inpatient Eval/Care/Monitoring Post Hospital Care: D/C Wire 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 Follow up on pending lab finding.
[2019-04-15] MEDS: ATORVASTATIN CALCIUM 20 MG TABLET PO SCH (21:20)
[2019-04-15] MEDS: ESCITALOPRAM OXALATE 10 MG TABLET PO SCH (21:21)
[2019-04-15] MEDS: ACETAMINOPHEN 325 MG TABLET PO PRN (21:21)
[2019-04-16] MEDS: BUTALB/ACETAMINOPHEN/CAFFEINE 1 TAB EACH PO PRN (02:30)
[2019-04-16] MEDS: PIPERACILLIN SODIUM/TAZOBACTAM 3.375 GM in NORMAL SALINE 100 ML IV SCH ×4 (02:30→23:08)
[2019-04-16] MEDS: ACETAMINOPHEN 325 MG TABLET PO PRN (05:15)
[2019-04-16] MEDS: GABAPENTIN 300 MG CAPSULE PO SCH ×3 (05:15→23:08)
--- NOTE | 2019-04-16 08:27 | PDOC PROGRESS REPORT ---
Subjective Progress Note for:: 04/16/19 Subjective:: Patient denied chest pain or difficulty with breathing. No fever or chills. No abdominal pain, nausea or vomiting. No constipation. Reason For Visit: PNEUMONIA Physical Exam Vital Signs: Temp Pulse Resp BP Pulse Ox 97.6 F 57 L 14 124/60 97 04/16/19 07:46 04/16/19 07:46 04/16/19 07:46 04/16/19 07:46 04/16/19 07:46 Intake & Output 04/15/19 04/16/19 04/17/19 06:59 06:59 06:59 Intake Total 1516 1440 Balance 1516 1440 Weight 89.8 kg 92 kg Physical Exam: General appearance: PRESENT: no acute distress, obese Head exam: PRESENT: atraumatic, normocephalic Eye exam: PRESENT: conjunctiva pink. ABSENT: pallor, scleral icterus Ear exam: PRESENT: normal external ear exam Mouth exam: PRESENT: moist Teeth exam: PRESENT: poor dentition Respiratory exam: PRESENT: clear to auscultation lele, decreased breath sounds - at lung bases Cardiovascular exam: PRESENT: RRR, +S1, +S2. ABSENT: diastolic murmur, rubs, s ystolic murmur GI/Abdominal exam: PRESENT: normal bowel sounds, soft. ABSENT: distended, guarding, mass, organomegaly, rebound, tenderness Extremities exam: PRESENT: pedal edema Neurological exam: PRESENT: alert, awake, oriented to person, oriented to place, oriented to time, oriented to situation, CN II-XII grossly intact. ABSENT: motor sensory deficit Skin exam: PRESENT: dry, warm Results Laboratory Results: 04/15/19 06:41 04/15/19 06:41 04/12/19 04/13/19 04/13/19 20:00 05:43 05:43 Creatine Kinase < 20 L CK-MB (CK-2) 1.04 Troponin I 0.042 0.030 NT-Pro-B Natriuret Pep 8470 H Impressions: Chest X-Ray 04/12/19 15:51 IMPRESSION: Worsening patchy opacities in the right lung suspicious for pneumon ia. Head CT 04/12/19 16:04 IMPRESSION: Expected evolving appearance of the large right temporal lobe hemorrhage. No midline shift. No acute finding. EVIDENCE OF ACUTE STROKE: NO. Assessment & Plan - Diagnosis (1) Hospital-acquired pneumonia Is this a current diagnosis for this admission?: Yes (2) Headache Qualifiers: Headache type: post-traumatic Headache chronicity pattern: unspecified pattern Intractability: not intractable Qualified Code(s): G44.309 - Post- traumatic headache, unspecified, not intractable Is this a current diagnosis for this admission?: Yes (3) Chronic combined systolic and diastolic CHF (congestive heart failure) Is this a current diagnosis for this admission?: Yes (4) Diabetes mellitus type 2 in obese Is this a current diagnosis for this admission?: Yes 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 2 diabetes mellitus Qualifiers: Diabetic foot ulcer location: heel Non-pressure ulcer stage: unspecified non-pressure ulcer stage Qualified Code(s): E11.621 - Type 2 diabetes mellitus with foot ulcer; L97.429 - Non-pressure chronic ulcer of left heel and midfoot with unspecified severity Is this a current diagnosis for this admission?: Yes (6) Hypertension Qualifiers: Hypertension type: essential hypertension Qualified Code(s): I10 - Essential (primary) hypertension Is this a current diagnosis for this admission?: Yes (7) CAD (coronary artery disease) Qualifiers: Coronary Disease-Associated Artery/Lesion type: unspecified vessel or lesion type [place] vs. transplanted heart: [place] heart Associated angina: without angina Qualified Code(s): I25.10 - Atherosclerotic heart disease of [place] coronary artery without angina pectoris Is this a current diagnosis for this admission?: Yes (8) Chronic use of opiate for therapeutic purpose Is this a current diagnosis for this admission?: Yes (9) Obesity (BMI 30-39.9) Is this a current diagnosis for this admission?: Yes - Time Time Spent with patient: 25-34 minutes Level of Care: IMCU Medications reviewed and adjusted accordingly: Yes Anticipated discharge: Home with Homehealth Within: Other - Inpatient Certification Based on my medical assessment, after consideration of the patient's comorbidities, presenting symptoms, or acuity I expect that the services needed warrant INPATIENT care.: Yes I certify that my determination is in accordance with my understanding of Medicare's requirements for reasonable and necessary INPATIENT services [42 CFR 412.3e].: Yes Medical Necessity: Significant Comorbidiites Make Outpatient Treatment Too Risky, Need Close Monitoring Due to Risk of Patient Decompensation, Need For Continuous Telemetry Monitoring, Need for IV Antibiotics, Risk of Complication if Not Cared For in Hospital, Risk of Diagnosis Which Will Require Inpatient Eval/Care/Monitoring Post Hospital Care: D/C Etiologist Documentation - Plan Summary Plan Summary: Continue current medication management. Obtain CBC with diff and BMP in AM.
[2019-04-16] MEDS: GUAIFENESIN 600 MG TABLET.SA PO SCH ×2 (09:25→23:08)
[2019-04-16] MEDS: CARVEDILOL 12.5 MG TABLET PO SCH ×2 (09:25→23:07)
[2019-04-16] MEDS: RANOLAZINE 500 MG TAB.SR.12H PO SCH ×2 (09:25→23:09)
[2019-04-16] MEDS: FAMOTIDINE 20 MG TABLET PO SCH ×2 (09:25→17:22)
[2019-04-16] MEDS: INSULIN LISPRO 100 UNIT/ML 3 ML VIAL SUBCUT SCH ×4 (09:26→23:08)
[2019-04-16] MEDS: FUROSEMIDE INJ/PF 20 MG/2 ML SDV IV SCH ×2 (09:26→23:07)
[2019-04-16] MEDS: DICYCLOMINE HCL 10 MG CAPSULE PO SCH ×4 (09:27→23:08)
[2019-04-16] MEDS: OXYCODONE-ACETAMINOPHEN 5-325 MG TABLET PO PRN ×2 (14:07→23:07)
--- NOTE | 2019-04-16 22:12 | Progress Note ---
Provider Note Provider Note: CARDIOLOGY PROGRESS NOTE by Dr. Gema Garcia on 04/16/2019. SUBJECTIVE: The patient denies any shortness of breath or cough or sputum production. She is afebrile. Her white count is normal. But the chest x-ray suggests that the patient is got pneumonia on the right lower lobe. The patient is on antibiotics for community-acquired pneumonia treatment. The patient denies chest pain. There is no PND orthopnea. There is no recurrence of atrial fibrillation. There is no TIA CVA. Her headache is better. There is no focal deficits. There is no ventricle arrhythmia seen on the monitor. PHYSICAL EXAMINATION: The patient is mild to moderately obese. In no acute distress. Selected Entries 04/16/19 16:56 Temperature 99.9 F Temperature Oral Source Pulse Rate 60 Respiratory 17 Rate Blood Pressure 129/68 H Blood Pressure 88 Mean BP Location Left Arm BP Position Supine O2 Sat by Pulse 98 Oximetry Oxygen Flow 1.00 Rate Oxygen Delivery Nasal Cannula Method HEENT: Head is atraumatic/normocephalic. EYES: Pupils are equal round regular reactive to light accommodation external ocular movements are normal. There is no conjunctival pallor there is no scleral icterus. ENT is negative. Neck is supple there is no JVD carotids are equal there is no bruit there is no lymphadenopathy there is no goiter trachea is central.Lungs: There is diminished air entry and prolonged expiration without any rhonchi rales or wheezing. On percussion there is hyperresonance throughout. There are no rales of CHF. There are a few dry crackles in the right lower lobe consistent with pneumonia. HEART: S1-S2 is heard there is no S3 gallop there is no S4 gallop there is a systolic murmur in the left sternal border and apex there is no rub. ABDOMEN: Abdomen is soft nontender there is no hepatosplenomegaly. Bowel sounds well heard there are no tender areas of masses. EXTREMITIES femorals are diminished. Leg pulses are difficult to palpate. There are no femoral bruits. There is dressing on the ulcers of both nonhealing ulcers of the feet which are. There is no pedal edema. There is no DVT or cellulitis there is no calf tenderness. There is no cyanosis or clubbing.GRILL CHEF: The patient is awake alert oriented 3 with no focal deficits. PSYCHIATRIC: The patient's judgment and insight are intact her affect is normal. Labs- All tests 24 hr 04/16/19 04/16/19 04/16/19 07:47 11:40 16:53 POC Glucose 151 H 129 H 196 H 04/16/19 21:23 POC Glucose 154 H Chest X-Ray 04/12/19 15:51 IMPRESSION: Worsening patchy opacities in the right lung suspicious for pneumonia. Head CT 04/12/19 16:04 IMPRESSION: Expected evolving appearance of the large right temporal lobe hemorrhage. No midline shift. No acute finding. EVIDENCE OF ACUTE STROKE: NO. IMPRESSION/RECOMMENDATION: 1. Right lower lobe pneumonia by chest x-ray. Patient denies any cough as sputum production. There is no fever. There is no shortness of breath. The patient being treated for community-acquired pneumonia. 2. Chest pressure: No evidence of elevated troponin I or acute EKG changes. The patient does have a history of coronary artery disease and history of coronary bypass graft surgery. Hence later would recommend that the patient have IV Lexiscan Cardiolite stress test. But would wait for at least 6 weeks since the patient had a cerebral event in early March 2019. Will avoid nitrates in view of the patient's already having headaches. We will increase the Ranexa to thousand milligrams p.o. p.o. twice daily. 3. 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 Would medical Simi control the patient blood pressure and keep it below 140 sys tolic. 4. CHRONIC DIASTOLIC HEART FAILURE: At present compensated. At present the patient's ejection fraction is normal. 5. Paroxysmal atrial fibrillation: At present the patient is in sinus rhythm. Note in view of the patient's nosebleeds and prior to her intracranial hemorrhage the patient's aspirin Plavix and Eliquis were all stopped and the prior admission in [place]. 6. HYPERTENSION: Well controlled. Continue her current medications. 7. CORONARY ARTERY DISEASE: Prior history of myocardial infarction and history of coronary artery bypass graft surgery. No anginal symptoms. 7ut would recommend since the patient is not a good historian to get a IV Lexiscan Cardiolite stress test which is been ordered for tomorrow. 8. NONCOMPLIANCE.: The importance of compliance with diet and medications stressed with the patient. 9. CHRONIC OBSTRUCTIVE PULMONARY DISEASE: Continue current inhalers. 10. PERIPHERAL ARTERIAL DISEASE.: Patient with nonhealing ulcers of her both feet./Heels. 11. OBSTRUCTIVE SLEEP APNEA we will continue the patient on CPAP and continue the patient's Symbicort and Advair Diskus. 12.. DIABETES MELLITUS with peripheral arterial disease. MEDICATIONS reviewed. Medical regimen and management plan discussed per Dr. Bess. Medical decision making is of moderate complexity. Needs close cardiology follow-up to make sure the patient does not have recurrence of atrial fibrillation. 40 minutes spent as patient more than 50% of time spent in direct patient care. Will follow.
[2019-04-16] MEDS: ESCITALOPRAM OXALATE 10 MG TABLET PO SCH (23:07)
[2019-04-16] MEDS: ATORVASTATIN CALCIUM 20 MG TABLET PO SCH (23:08)
[2019-04-17] MEDS: PIPERACILLIN SODIUM/TAZOBACTAM 3.375 GM in NORMAL SALINE 100 ML IV SCH ×4 (03:40→21:33)
[2019-04-17] MEDS: OXYCODONE-ACETAMINOPHEN 5-325 MG TABLET PO PRN ×2 (06:19→21:43)
[2019-04-17] MEDS: GABAPENTIN 300 MG CAPSULE PO SCH ×3 (06:19→21:32)
[2019-04-17 06:57] LABS: ABSOLUTE EOSINOPHILS # (AUTO) 0.2 10^3/uL (0.0-0.6); ABSOLUTE LYMPHOCYTES (AUTO) 1.2 10^3/uL (0.5-4.7); ABSOLUTE MONOCYTES (AUTO) 0.7 10^3/uL (0.1-1.4); ABSOLUTE NEUT (AUTO) 3.6 10^3/uL (1.7-8.2); BASOPHILS % (AUTO) 0.5 % (0-2); EOSINOPHILS % (AUTO) 3.2 % (0-6); HEMATOCRIT 27.3 % (36.0-47.0); HEMOGLOBIN 8.9 g/dL (12.0-15.5); LYMPHOCYTES % (AUTO) 20.7 % (13-45); MEAN CORPUSCULAR HEMOGLOBIN 30.9 pg (27.0-33.4); MEAN CORPUSCULAR HGB CONC 32.7 g/dL (32.0-36.0); MEAN CORPUSCULAR VOLUME 95 fl (80-97); MONOCYTES % (AUTO) 12.1 % (3-13); PLATELET COUNT 164 10^3/uL (150-450); RED BLOOD COUNT 2.89 10^6/uL (3.72-5.28); RED CELL DISTRIBUTION WIDTH 17.5 % (11.5-14.0); SEGMENTED NEUTROPHILS % (AUTO) 63.5 % (42-78); TOTAL CELLS COUNTED % (AUTO) 100 %; WHITE BLOOD COUNT 5.6 10^3/uL (4.0-10.5)
[2019-04-17 07:21] LABS: ANION GAP 12 (5-19); BLOOD UREA NITROGEN 43 mg/dL (7-20); CARBON DIOXIDE 23 mmol/L (22-30); CHLORIDE 106 mmol/L (98-107); GLUCOSE 142 mg/dL (75-110)
[2019-04-17] MEDS: INSULIN LISPRO 100 UNIT/ML 3 ML VIAL SUBCUT SCH ×4 (08:49→22:43)
[2019-04-17] MEDS: FUROSEMIDE INJ/PF 20 MG/2 ML SDV IV SCH (09:13)
[2019-04-17] MEDS: FAMOTIDINE 20 MG TABLET PO SCH ×2 (09:13→17:12)
[2019-04-17] MEDS: RANOLAZINE 500 MG TAB.SR.12H PO SCH ×2 (09:13→21:32)
[2019-04-17] MEDS: DICYCLOMINE HCL 10 MG CAPSULE PO SCH ×4 (09:13→21:32)
[2019-04-17] MEDS: GUAIFENESIN 600 MG TABLET.SA PO SCH ×2 (09:13→21:33)
[2019-04-17] MEDS: CARVEDILOL 12.5 MG TABLET PO SCH ×2 (09:13→21:33)
[2019-04-17] MEDS: IPRATROPIUM/ALBUTEROL 0.5-2.5 MG/3 ML AMPUL NEB PRN (10:42)
--- NOTE | 2019-04-17 19:04 | PDOC PROGRESS REPORT ---
Subjective Progress Note for:: 04/17/19 Subjective:: Patient reported persistent headache. No nausea or vomiting. Patient denied chest pain or difficulty with breathing. No fever or chills. No abdominal pain or constipation. Reason For Visit: PNEUMONIA Physical Exam Vital Signs: Temp Pulse Resp BP Pulse Ox 98.6 F 59 L 16 141/65 H 97 04/17/19 16:51 04/17/19 16:51 04/17/19 16:51 04/17/19 16:51 04/17/19 16:51 Intake & Output 04/16/19 04/17/19 04/18/19 06:59 06:59 06:59 Intake Total 1440 1300 200 Balance 1440 1300 200 Weight 92 kg 87.7 kg Physical Exam: General appearance: PRESENT: no acute distress, obese Head exam: PRESENT: atraumatic, normocephalic Eye exam: PRESENT: conjunctiva pink. ABSENT: pallor, scleral icterus Ear exam: PRESENT: normal external ear exam Mouth exam: PRESENT: moist Teeth exam: PRESENT: poor dentition Respiratory exam: PRESENT: clear to auscultation lele, decreased breath sounds - at lung bases Cardiovascular exam: PRESENT: RRR, +S1, +S2. ABSENT: diastolic murmur, rubs, systolic murmur GI/Abdominal exam: PRESENT: normal bowel sounds, soft. ABSENT: distended, guarding, mass, organomegaly, rebound, tenderness Extremities exam: PRESENT: pedal edema Neurological exam: PRESENT: alert, awake, oriented to person, oriented to place, oriented to time, oriented to situation, CN II-XII grossly intact. ABSENT: motor sensory deficit Skin exam: PRESENT: dry, warm Results Laboratory Results: 04/17/19 06:05 04/17/19 06:05 04/17/19 04/17/19 06:05 06:05 WBC 5.6 RBC 2.89 L Hgb 8.9 L Hct 27.3 L MCV 95 MCH 30.9 MCHC 32.7 RDW 17.5 H Plt Count 164 Seg Neutrophils % 63.5 Sodium 140.5 Potassium 5.0 Chloride 106 Carbon Dioxide 23 Anion Gap 12 BUN 43 H Creatinine 1.59 H Est GFR ( Amer) 40 L Glucose 142 H Calcium 9.0 04/12/19 04/13/19 04/13/19 20:00 05:43 05:43 Creatine Kinase < 20 L CK-MB (CK-2) 1.04 Troponin I 0.042 0.030 NT-Pro-B Natriuret Pep 8470 H Impressions: Chest X-Ray 04/12/19 15:51 IMPRESSION: Worsening patchy opacities in the right lung suspicious for pneumonia. Head CT 04/12/19 16:04 IMPRESSION: Expected evolving appearance of the large right temporal lobe hemorrhage. No midline shift. No acute finding. EVIDENCE OF ACUTE STROKE: NO. Assessment & Plan - Diagnosis (1) Hospital-acquired pneumonia Is this a current diagnosis for this admission?: Yes (2) Headache Qualifiers: Headache type: post-traumatic Headache chronicity pattern: unspecified pattern Intractability: not intractable Qualified Code(s): G44.309 - Post- traumatic headache, unspecified, not intractable Is this a current diagnosis for this admission?: Yes (3) Chronic combined systolic and diastolic CHF (congestive heart failure) Is this a current diagnosis for this admission?: Yes (4) Diabetes mellitus type 2 in obese Is this a current diagnosis for this admission?: Yes 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 2 diabetes mellitus Qualifiers: Diabetic foot ulcer location: heel Non-pressure ulcer stage: unspecified non-pressure ulcer stage Qualified Code(s): E11.621 - Type 2 diabetes mellitus with foot ulcer; L97.429 - Non-pressure chronic ulcer of left heel and midfoot with unspecified severity Is this a current diagnosis for this admission?: Yes (6) Hypertension Qualifiers: Hypertension type: essential hypertension Qualified Code(s): I10 - Essential (primary) hypertension Is this a current diagnosis for this admission?: Yes (7) CAD (coronary artery disease) Qualifiers: Coronary Disease-Associated Artery/Lesion type: unspecified vessel or lesion type [place] vs. transplanted heart: [place] heart Associated angina: without angina Qualified Code(s): I25.10 - Atherosclerotic heart disease of [place] coronary artery without angina pectoris Is this a current diagnosis for this admission?: Yes (8) Chronic use of opiate for therapeutic purpose Is this a current diagnosis for this admission?: Yes (9) Obesity (BMI 30-39.9) Is this a current diagnosis for this admission?: Yes - Time Time Spent with patient: 25-34 minutes Level of Care: IMCU Medications reviewed and adjusted accordingly: Yes Anticipated discharge: Home with Homehealth Within: Other - Inpatient Certification Based on my medical assessment, after consideration of the patient's comorbidities, presenting symptoms, or acuity I expect that the services needed warrant INPATIENT care.: Yes I certify that my determination is in accordance with my understanding of Medicare's requirements for reasonable and necessary INPATIENT services [42 CFR 412.3e].: Yes Medical Necessity: Significant Comorbidiites Make Outpatient Treatment Too Risky, Need Close Monitoring Due to Risk of Patient Decompensation, Need For Continuous Telemetry Monitoring, Need for IV Antibiotics, Risk of Complication if Not Cared For in Hospital, Risk of Diagnosis Which Will Require Inpatient Eval/Care/Monitoring Post Hospital Care: D/C Cementer Hand Documentation - Plan Summary Plan Summary: D/C IV Furosemide and Dexamethasone 2 mg p.o q12 hours. Start on Furosemide 40 mg p.o bid. Continue all other current medication management. Obtain CBC with diff and BMP in AM.
[2019-04-17] MEDS: ATORVASTATIN CALCIUM 20 MG TABLET PO SCH (21:33)
[2019-04-17] MEDS: ESCITALOPRAM OXALATE 10 MG TABLET PO SCH (21:33)
[2019-04-18] MEDS: PIPERACILLIN SODIUM/TAZOBACTAM 3.375 GM in NORMAL SALINE 100 ML IV SCH ×4 (03:16→22:24)
[2019-04-18] MEDS: GABAPENTIN 300 MG CAPSULE PO SCH ×3 (05:52→22:24)
[2019-04-18 06:28] LABS: ABSOLUTE EOSINOPHILS # (AUTO) 0.2 10^3/uL (0.0-0.6); ABSOLUTE LYMPHOCYTES (AUTO) 1.1 10^3/uL (0.5-4.7); ABSOLUTE MONOCYTES (AUTO) 0.5 10^3/uL (0.1-1.4); ABSOLUTE NEUT (AUTO) 2.9 10^3/uL (1.7-8.2); BASOPHILS % (AUTO) 0.7 % (0-2); EOSINOPHILS % (AUTO) 3.9 % (0-6); HEMATOCRIT 28.8 % (36.0-47.0); HEMOGLOBIN 9.3 g/dL (12.0-15.5); LYMPHOCYTES % (AUTO) 23.3 % (13-45); MEAN CORPUSCULAR HEMOGLOBIN 30.5 pg (27.0-33.4); MEAN CORPUSCULAR HGB CONC 32.1 g/dL (32.0-36.0); MEAN CORPUSCULAR VOLUME 95 fl (80-97); MONOCYTES % (AUTO) 11.2 % (3-13); PLATELET COUNT 174 10^3/uL (150-450); RED BLOOD COUNT 3.03 10^6/uL (3.72-5.28); RED CELL DISTRIBUTION WIDTH 17.4 % (11.5-14.0); SEGMENTED NEUTROPHILS % (AUTO) 60.9 % (42-78); TOTAL CELLS COUNTED % (AUTO) 100 %; WHITE BLOOD COUNT 4.7 10^3/uL (4.0-10.5)
[2019-04-18 06:49] LABS: ALBUMIN 3.4 g/dL (3.5-5.0); ALKALINE PHOSPHATASE 368 U/L (38-126); ASPARTATE AMINO TRANSFERASE 39 U/L (14-36); BILIRUBIN,DIRECT 0.7 mg/dL (0.0-0.4); BILIRUBIN,TOTAL 0.7 mg/dL (0.2-1.3); BLOOD UREA NITROGEN 40 mg/dL (7-20); CALCIUM 9.2 mg/dL (8.4-10.2); CARBON DIOXIDE 27 mmol/L (22-30); CHLORIDE 106 mmol/L (98-107); GLUCOSE 154 mg/dL (75-110); POTASSIUM 5.2 mmol/L (3.6-5.0); TOTAL PROTEIN 7.7 g/dL (6.3-8.2)
[2019-04-18 06:51] LABS: ANION GAP 9 (5-19)
[2019-04-18] MEDS: INSULIN LISPRO 100 UNIT/ML 3 ML VIAL SUBCUT SCH ×4 (08:12→22:25)
[2019-04-18] MEDS: DICYCLOMINE HCL 10 MG CAPSULE PO SCH ×4 (09:05→22:25)
[2019-04-18] MEDS ORDERED: FUROSEMIDE 20 MG TABLET PO SCH (10:00)
--- NOTE | 2019-04-18 10:14 | RADIOLOGY REPORT (SQ) ---
EXAM DESCRIPTION: CHEST 2 VIEWS COMPLETED DATE/TIME: 04/18/2019 9:42 am REASON FOR STUDY: pneumonia COMPARISON: AP view of the chest from 04/12/2019. EXAM PARAMETERS: NUMBER OF VIEWS: Two views. TECHNIQUE: AP and lateral views of the chest were obtained. RADIATION DOSE: NA LIMITATIONS: none FINDINGS: LUNGS AND PLEURA: Decreased diffuse patchy alveolar opacities. There is no sizable pleura l effusion or pneumothorax. MEDIASTINUM AND HILAR STRUCTURES: No mediastinal or hilar contour abnormality. HEART AND VASCULAR STRUCTURES: Stable cardiomegaly. BONES: No acute findings. HARDWARE: Sternotomy hardware. OTHER: No other finding. IMPRESSION: Decreased diffuse patchy alveolar opacities. TECHNICAL DOCUMENTATION: JOB ID: [id number] 2010 [employer]- All Rights Reserved Reading location - IP/workstation name: [email or web address]
[2019-04-18] MEDS: CARVEDILOL 12.5 MG TABLET PO SCH ×2 (11:11→22:24)
[2019-04-18] MEDS: FUROSEMIDE 40 MG TABLET PO SCH ×2 (11:11→17:54)
[2019-04-18] MEDS: RANOLAZINE 500 MG TAB.SR.12H PO SCH ×2 (11:11→22:24)
[2019-04-18] MEDS: GUAIFENESIN 600 MG TABLET.SA PO SCH ×2 (11:11→22:24)
[2019-04-18] MEDS: FAMOTIDINE 20 MG TABLET PO SCH ×2 (11:11→17:55)
--- NOTE | 2019-04-18 18:42 | PDOC PROGRESS REPORT ---
Subjective Progress Note for:: 04/18/19 Subjective:: Patient denied chest pain or difficulty with breathing. No fever or chills. No nausea or vomiting, abdominal pain or constipation. Reason For Visit: PNEUMONIA Physical Exam Vital Signs: Temp Pulse Resp BP Pulse Ox 98.5 F 61 14 147/63 H 98 04/18/19 08:03 04/18/19 08:03 04/18/19 08:03 04/18/19 08:03 04/18/19 08:03 Intake & Output 04/17/19 04/18/19 04/19/19 06:59 06:59 06:59 Intake Total 1300 1160 Output Total 1150 Balance 1300 10 Weight 87.7 kg 87.6 kg Physical Exam: General appearance: PRESENT: no acute distress, obese Head exam: PRESENT: atraumatic, normocephalic Eye exam: PRESENT: conjunctiva pink. ABSENT: pallor, scleral icterus Ear exam: PRESENT: normal external ear exam Mouth exam: PRESENT: moist Teeth exam: PRESENT: poor dentition Respiratory exam: PRESENT: clear to auscultation lele, decreased breath sounds - at lung bases Cardiovascular exam: PRESENT: RRR, +S1, +S2. ABSENT: diastolic murmur, rubs, systolic murmur GI/Abdominal exam: PRESENT: normal bowel sounds, soft. ABSENT: distended, guarding, mass, organomegaly, rebound, tenderness Extremities exam: PRESENT: pedal edema Neurological exam: PRESENT: alert, awake, oriented to person, oriented to place, oriented to time, oriented to situation, CN II-XII grossly intact. ABSENT: motor sensory deficit Skin exam: PRESENT: dry, warm Results Laboratory Results: 04/18/19 06:14 04/18/19 06:14 04/18/19 04/18/19 06:14 06:14 WBC 4.7 RBC 3.03 L Hgb 9.3 L Hct 28.8 L MCV 95 MCH 30.5 MCHC 32.1 RDW 17.4 H Plt Count 174 Seg Neutrophils % 60.9 Sodium 142.2 Potassium 5.2 H Chloride 106 Carbon Dioxide 27 Anion Gap 9 BUN 40 H Creatinine 1.43 H Est GFR ( Amer) 45 L Glucose 154 H Calcium 9.2 Total Bilirubin 0.7 AST 39 H Alkaline Phosphatase 368 H Total Protein 7.7 Albumin 3.4 L 04/12/19 20:20 Blood Blood Culture - Final NO GROWTH IN 5 DAYS 04/12/19 20:00 Blood Blood Culture - Final NO GROWTH IN 5 DAYS 04/12/19 04/13/19 04/13/19 20:00 05:43 05:43 Creatine Kinase < 20 L CK-MB (CK-2) 1.04 Troponin I 0.042 0.030 NT-Pro-B Natriuret Pep 8470 H Impressions: Chest X-Ray 04/12/19 15:51 IMPRESSION: Worsening patchy opacities in the right lung suspicious for pneumonia. Head CT 04/12/19 16:04 IMPRESSION: Expected evolving appearance of the large right temporal lobe hemorrhage. No midline shift. No acute finding. EVIDENCE OF ACUTE STROKE: NO. Assessment & Plan - Diagnosis (1) Hospital-acquired pneumonia Is this a current diagnosis for this admission?: Yes (2) Headache Qualifiers: Headache type: post-traumatic Headache chronicity pattern: unspecified pattern Intractability: not intractable Qualified Code(s): G44.309 - Post- traumatic headache, unspecified, not intractable Is this a current diagnosis for this admission?: Yes (3) Chronic combined systolic and diastolic CHF (congestive heart failure) Is this a current diagnosis for this admission?: Yes (4) Diabetes mellitus type 2 in obese Is this a current diagnosis for this admission?: Yes 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 2 diabetes mellitus Qualifiers: Diabetic foot ulcer location: heel Non-pressure ulcer stage: unspecified non-pressure ulcer stage Qualified Code(s): E11.621 - Type 2 diabetes mellitus with foot ulcer; L97.429 - Non-pressure chronic ulcer of left heel and midfoot with unspecified severity Is this a current diagnosis for this admission?: Yes (6) Hypertension Qualifiers: Hypertension type: essential hypertension Qualified Code(s): I10 - Essential (primary) hypertension Is this a current diagnosis for this admission?: Yes (7) CAD (coronary artery disease) Qualifiers: Coronary Disease-Associated Artery/Lesion type: unspecified vessel or lesion type [place] vs. transplanted heart: [place] heart Associated angina: without angina Qualified Code(s): I25.10 - Atherosclerotic heart disease of [place] coronary artery without angina pectoris Is this a current diagnosis for this admission?: Yes (8) Chronic use of opiate for therapeutic purpose Is this a current diagnosis for this admission?: Yes (9) Obesity (BMI 30-39.9) Is this a current diagnosis for this admission?: Yes - Time Time Spent with patient: 25-34 minutes Level of Care: IMCU Medications reviewed and adjusted accordingly: Yes Anticipated discharge: Home with Homehealth Within: Other - Inpatient Certification Based on my medical assessment, after consideration of the patient's comorbidities, presenting symptoms, or acuity I expect that the services needed warrant INPATIENT care.: Yes I certify that my determination is in accordance with my understanding of Medicare's requirements for reasonable and necessary INPATIENT services [42 CFR 412.3e].: Yes Medical Necessity: Significant Comorbidiites Make Outpatient Treatment Too Risky, Need Close Monitoring Due to Risk of Patient Decompensation, Need For Continuous Telemetry Monitoring, Need for Nebulizer Therapy and Monitoring of Response, Need for IV Antibiotics, Risk of Complication if Not Cared For in Hospital, Risk of Diagnosis Which Will Require Inpatient Eval/Care/Monitoring Post Hospital Care: D/C Link 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 Start on Levofloxacin 500 mg p.o daily. Continue all other current medication management. Obtain chest X ray.
[2019-04-18] MEDS: ATORVASTATIN CALCIUM 20 MG TABLET PO SCH (22:24)
[2019-04-18] MEDS: ESCITALOPRAM OXALATE 10 MG TABLET PO SCH (22:24)
[2019-04-19] MEDS: PIPERACILLIN SODIUM/TAZOBACTAM 3.375 GM in NORMAL SALINE 100 ML IV SCH ×3 (03:19→14:09)
[2019-04-19 05:35] LABS: ANION GAP 8 (5-19); BLOOD UREA NITROGEN 28 mg/dL (7-20); CALCIUM 9.3 mg/dL (8.4-10.2); CARBON DIOXIDE 27 mmol/L (22-30); CHLORIDE 107 mmol/L (98-107); GLUCOSE 152 mg/dL (75-110); POTASSIUM 4.9 mmol/L (3.6-5.0)
[2019-04-19] MEDS: GABAPENTIN 300 MG CAPSULE PO SCH ×2 (05:56→14:10)
[2019-04-19] MEDS: INSULIN LISPRO 100 UNIT/ML 3 ML VIAL SUBCUT SCH ×2 (08:03→12:01)
[2019-04-19] MEDS: DICYCLOMINE HCL 10 MG CAPSULE PO SCH ×2 (11:06→11:08)
[2019-04-19] MEDS: FUROSEMIDE 40 MG TABLET PO SCH (11:08)
[2019-04-19] MEDS: FAMOTIDINE 20 MG TABLET PO SCH (11:08)
[2019-04-19] MEDS: CARVEDILOL 12.5 MG TABLET PO SCH (11:09)
[2019-04-19] MEDS: GUAIFENESIN 600 MG TABLET.SA PO SCH (11:09)
[2019-04-19] MEDS: RANOLAZINE 500 MG TAB.SR.12H PO SCH (11:09)
--- NOTE | 2019-04-19 15:49 | PDOC DISCHARGE SUMMARY ---
Impression - Admit/DC Date/PCP Admission Date/Primary Care Provider: 04/12/19 22:40 RENAN LAZAR Discharge Date: 04/19/19 - Discharge Diagnosis (1) Hospital-acquired pneumonia Is this a current diagnosis for this admission?: Yes (2) Headache Is this a current diagnosis for this admission?: Yes (3) Chronic combined systolic and diastolic CHF (congestive heart failure) Is this a current diagnosis for this admission?: Yes (4) Diabetes mellitus type 2 in obese Is this a current diagnosis for this admission?: Yes 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 2 diabetes mellitus Is this a current diagnosis for this admission?: Yes (6) Hypertension Is this a current diagnosis for this admission?: Yes (7) CAD (coronary artery disease) Is this a current diagnosis for this admission?: Yes (8) Chronic use of opiate for therapeutic purpose Is this a current diagnosis for this admission?: Yes (9) Obesity (BMI 30-39.9) Is this a current diagnosis for this admission?: Yes - Assessment Summary: Patient was admitted for pneumonia and recurrent headache. She was treated with IV Zosyn. Her blood culture was no growth after appropriate incubation period. She has been on oral Levofloxacin therapy. Her chest X ray did showed comparative improvement in the right upper and lower area of infiltration. She remain afebrile. Her intermittent headache was secondary to her recent hemorrhagic stroke with reported positive cocaine urine drug screen. Case was discussed with her neurosurgeon who agreed to post hemorrhagic stroke sequel as cause of her headache. She will be discharged home today and follow up in the office as instructed upon discharge. - Additional Information Discharge Diet: Cardiac, Diabetic Discharge Activity: Activity As Tolerated, Balance Activity w/Rest, Weigh Daily Referrals: RENAN LAZAR MD [Primary Care Provider] - 04/25/19 10:00 am Prescriptions: Butalb/Acetaminophen/Caffeine [Fioricet (50-325-40 mg) Tablet] 1 tab PO Q6HP PRN #60 each PRN Reason: Levofloxacin [Levaquin 500 mg Tablet] 500 mg PO DAILY #7 tablet Guaifenesin [Mucinex Sr 600 mg Tablet.sa] 600 mg PO Q12 #20 tablet.sa Home Medications: Amlodipine Besylate [Norvasc 10 mg Tablet] 10 mg PO DAILY 11/30/18 Ascorbic Acid [Vitamin C 500 mg Tablet] 500 mg PO DAILY 11/30/18 Atorvastatin Calcium [Lipitor 20 mg Tablet] 20 mg PO QHS 11/30/18 Docusate Sodium [Colace 100 mg Capsule] 100 mg PO BIDP PRN 11/30/18 Ferrous Sulfate [Feosol 325 mg Tablet] 325 mg PO DAILY 11/30/18 Furosemide [Lasix 20 mg Tablet] 40 mg PO BID 11/30/18 Valsartan [Diovan 160 mg Tablet] 160 mg PO DAILY 11/30/18 Clopidogrel Bisulfate [Plavix 75 mg Tablet] 75 mg PO DAILY 01/06/19 Gabapentin [Neurontin 300 mg Capsule] 300 mg PO Q8 01/06/19 Insulin Degludec [Tresiba Flextouch U-100] 40 unit SQ DAILY 01/06/19 Escitalopram Oxalate [Lexapro 10 mg Tablet] 10 mg PO QHS #30 tablet 03/01/19 Sucralfate [Carafate 1 gm Tablet] 1 gm PO Q6 #120 tablet 03/01/19 Carvedilol [Coreg 12.5 mg Tablet] 12.5 mg PO Q12 04/13/19 Cholecalciferol (Vitamin D3) [Vitamin D3 1000 Unit Tablet] 2,000 unit PO DAILY 04/13/19 Dexamethasone 1 mg PO Q12 04/13/19 Dicyclomine HCl [Bentyl 10 mg Capsule] 10 mg PO ACHS 04/13/19 Famotidine [Pepcid] 20 mg PO BID 04/13/19 Hydralazine HCl 100 mg PO Q8 04/13/19 Mesalamine [Asacol Hd] 800 mg PO TID 04/13/19 Butalb/Acetaminophen/Caffeine [Fioricet (50-325-40 mg) Tablet] 1 tab PO Q6HP PRN #60 each 04/19/19 Guaifenesin [Mucinex Sr 600 mg Tablet.sa] 600 mg PO Q12 #20 tablet.sa 04/19/19 Levofloxacin [Levaquin 500 mg Tablet] 500 mg PO DAILY #7 tablet 04/19/19 History of Present Illiness History of Present Illness: LEEANN FUNEZ is a 63 year old female Is a 63-year-old female's with a history of the coronary artery disease history of the myocardial infections congestive heart failure type 2 diabetes hypertension's recently admitting in the [facility] for the intracranial hemorrhage came to the emergency department with chief complaining of a headache with chest discomfort. Patient is reported about 2 hours prior to arrival she had acute onset of the headache patient also reporting some chest tightness with the same times patient's denied any fall or hit her head. Patient is reported the headache is located to the top and is sharp and stabbing in nature and comes and goes patients try some Tylenol and patient's was giving ferrocite from the [facility] is still not help patient also taking the pain medication oxycodone for the pain management for other issues Patient was admitted in the Monday after being for the 1 week from the brain bleed patient's was taking the Eliquis Plavix and aspirin in the past currently on hold In the emergency department patient was CT of the head was done which is pretty stable hematoma and discussed with the [facility] neurosurgery he reviewed the image from the previous CT scan and suggested no need to transfer the patient in a headache should be persist for another 6-month continues to use the PRN Tylenol ferrocite When I saw the patient sister complained about headache but pretty much stable after giving the Tylenol patient's denied any eye problems denied any chest pain Patient's chest x-ray reveals questionable pneumonia start on IV antibiotics Patient is currently denied any cough Hospital Course Hospital Course: Patient was admitted for pneumonia and recurrent headache. She was treated with IV Zosyn. Her blood culture was no growth after appropriate incubation period. She has been on oral Levofloxacin therapy. Her chest X ray did showed comparative improvement in the right upper and lower area of infiltration. She remain afebrile. Her intermittent headache was secondary to her recent hemorrhagic stroke with reported positive cocaine urine drug screen. Case was discussed with her neurosurgeon who agreed to post hemorrhagic stroke sequel as cause of her headache. She will be discharged home today and follow up in the office as instructed upon discharge. Physical Exam Vital Signs: Temp Pulse Resp BP Pulse Ox 98.6 F 70 18 151/75 H 100 04/19/19 11:12 04/19/19 14:00 04/19/19 11:12 04/19/19 11:12 04/19/19 11:12 Intake & Output 04/18/19 04/19/19 04/20/19 06:59 06:59 06:59 Intake Total 1160 1440 920 Output Total 1150 2600 Balance 10 -1160 920 Weight 87.6 kg 89.4 kg General appearance: PRESENT: no acute distress, obese Head exam: PRESENT: atraumatic, normocephalic Eye exam: PRESENT: conjunctiva pink. ABSENT: pallor, scleral icterus Ear exam: PRESENT: normal external ear exam Mouth exam: PRESENT: moist Teeth exam: PRESENT: poor dentition Respiratory exam: PRESENT: clear to auscultation lele, decreased breath sounds - at lung bases Cardiovascular exam: PRESENT: RRR, +S1, +S2. ABSENT: diastolic murmur, rubs, systolic murmur GI/Abdominal exam: PRESENT: normal bowel sounds, soft. ABSENT: distended, guarding, mass, organomegaly, rebound, tenderness Extremities exam: PRESENT: improved pedal edema Neurological exam: PRESENT: alert, awake, oriented to person, oriented to place, oriented to time, oriented to situation, CN II-XII grossly intact. ABSENT: motor sensory deficit Skin exam: PRESENT: dry, warm Results Laboratory Results: WBC 4.7 10^3/uL (4.0-10.5) 04/18/19 06:14 RBC 3.03 10^6/uL (3.72-5.28) L 04/18/19 06:14 Hgb 9.3 g/dL (12.0-15.5) L 04/18/19 06:14 Hct 28.8 % (36.0-47.0) L 04/18/19 06:14 MCV 95 fl (80-97) 04/18/19 06:14 MCH 30.5 pg (27.0-33.4) 04/18/19 06:14 MCHC 32.1 g/dL (32.0-36.0) 04/18/19 06:14 RDW 17.4 % (11.5-14.0) H 04/18/19 06:14 Plt Count 174 10^3/uL (150-450) 04/18/19 06:14 Lymph % (Auto) 23.3 % (13-45) 04/18/19 06:14 [place] % (Auto) 11.2 % (3-13) 04/18/19 06:14 Eos % (Auto) 3.9 % (0-6) 04/18/19 06:14 Baso % (Auto) 0.7 % (0-2) 04/18/19 06:14 Absolute Neuts (auto) 2.9 10^3/uL (1.7-8.2) 04/18/19 06:14 Absolute Lymphs (auto) 1.1 10^3/uL (0.5-4.7) 04/18/19 06:14 Absolute Monos (auto) 0.5 10^3/uL (0.1-1.4) 04/18/19 06:14 Absolute Eos (auto) 0.2 10^3/uL (0.0-0.6) 04/18/19 06:14 Absolute Basos (auto) 0.0 10^3/uL (0.0-0.2) 04/18/19 06:14 Seg Neutrophils % 60.9 % (42-78) 04/18/19 06:14 Sodium 142.1 mmol/L (137-145) 04/19/19 04:23 Potassium 4.9 mmol/L (3.6-5.0) 04/19/19 04:23 Chloride 107 mmol/L (98-107) 04/19/19 04:23 Carbon Dioxide 27 mmol/L (22-30) 04/19/19 04:23 Anion Gap 8 (5-19) 04/19/19 04:23 BUN 28 mg/dL (7-20) H 04/19/19 04:23 Creatinine 0.97 mg/dL (0.52-1.25) 04/19/19 04:23 Est GFR ( Amer) > 60 (>60) 04/19/19 04:23 Est GFR (MDRD) Non-Af 58 (>60) L 04/19/19 04:23 Glucose 152 mg/dL (75-110) H 04/19/19 04:23 POC Glucose 186 mg/dL (70-110) H 04/19/19 11:15 Calcium 9.3 mg/dL (8.4-10.2) 04/19/19 04:23 Total Bilirubin 0.7 mg/dL (0.2-1.3) 04/18/19 06:14 Direct Bilirubin 0.7 mg/dL (0.0-0.4) H 04/18/19 06:14 Neonat Total Bilirubin Not Reportable 04/18/19 06:14 Neonat Direct Bilirubin Not Reportable 04/18/19 06:14 Neonat Indirect Bili Not Reportable 04/18/19 06:14 AST 39 U/L (14-36) H 04/18/19 06:14 ALT 36 U/L (<35) H 04/18/19 06:14 Alkaline Phosphatase 368 U/L (38-126) H 04/18/19 06:14 Creatine Kinase < 20 U/L (30-135) L 04/13/19 05:43 CK-MB (CK-2) 1.04 ng/mL (<4.55) 04/13/19 05:43 Troponin I 0.030 ng/mL 04/13/19 05:43 NT-Pro-B Natriuret Pep 8470 pg/mL (<125) H 04/12/19 20:00 Total Protein 7.7 g/dL (6.3-8.2) 04/18/19 06:14 Albumin 3.4 g/dL (3.5-5.0) L 04/18/19 06:14 Urine Color YELLOW 04/12/19 19:00 Urine Appearance SLIGHTLY-CLOUDY 04/12/19 19:00 Urine pH 5.0 (5.0-9.0) 04/12/19 19:00 Ur Specific [place] 1.012 04/12/19 19:00 Urine Protein 100 mg/dL (NEGATIVE) H 04/12/19 19:00 Urine Glucose (UA) 50 mg/dL (NEGATIVE) H 04/12/19 19:00 Urine Ketones NEGATIVE mg/dL (NEGATIVE) 04/12/19 19:00 Urine Blood NEGATIVE (NEGATIVE) 04/12/19 19:00 Urine Nitrite NEGATIVE (NEGATIVE) 04/12/19 19:00 Urine Bilirubin NEGATIVE (NEGATIVE) 04/12/19 19:00 Urine Urobilinogen NEGATIVE mg/dL (<2.0) 04/12/19 19:00 Ur Leukocyte Esterase NEGATIVE (NEGATIVE) 04/12/19 19:00 Urine WBC (Auto) 2 /HPF 04/12/19 19:00 Urine RBC (Auto) 3 /HPF 04/12/19 19:00 Urine Bacteria (Auto) TRACE /HPF 04/12/19 19:00 Squamous Epi Cells Auto 3 /HPF 04/12/19 19:00 Urine Ascorbic Acid 20 (NEGATIVE) H 04/12/19 19:00 04/12/19 04/13/19 20:00 05:43 CK-MB (CK-2) 1.04 Troponin I 0.042 0.030 NT-Pro-B Natriuret Pep 8470 H Impressions: Chest X-Ray 04/12/19 15:51 IMPRESSION: Worsening patchy opacities in the right lung suspicious for pneumonia. Head CT 04/12/19 16:04 IMPRESSION: Expected evolving appearance of the large right temporal lobe hemorrhage. No midline shift. No acute finding. EVIDENCE OF ACUTE STROKE: NO. Chest X-Ray 04/18/19 00:00 IMPRESSION: Decreased diffuse patchy alveolar opacities. Plan Health Concerns: Medication, dietary and fluid restriction compliance. Plan of Treatment: Discharge home with OIL FIELD TECHNICIAN services for close monitoring and follow iup in the office within 7 days after discharge. Goals: Reduce readmission risk level. Stroke Is this a Stroke Patient?: No Acute Heart Failure - Is this a Heart Failure Patient?: Yes Documentation of LVEF assessment?: No, Document reason - completed on 08/30/2018 LVEF 60% LVEF < 40%?: No- if no continue to question #3 3. Anticoagulant therapy for permanect/persistent/paraoxysmal Afib or Aflutter: Yes Follow-up Appointment scheduled within 7 days?: Yes
[2019-04-19 15:55] VITALS: BP 120/57
== END 2019-04-19 17:18 | disposition home health service (06) | DRG 193 ==
LOC: ER 15:49 → EH 22:40 → 3W 04-13 00:03
PROVIDERS: ADMIT Internal Medicine Geriatric Medicine; ATTEND Internal Medicine Geriatric Medicine
DX: J18.9 Pneumonia, unspecified organism (principal); L89.624 Pressure ulcer of left heel, stage 4; I50.42 Chronic combined systolic (congestive) and diastolic (congestive) heart failure; R07.89 Other chest pain; I11.0 Hypertensive heart disease with heart failure; E11.622 Type 2 diabetes mellitus with other skin ulcer; E11.621 Type 2 diabetes mellitus with foot ulcer; L98.499 Non-pressure chronic ulcer of skin of other sites with unspecified severity; I48.0 Paroxysmal atrial fibrillation; G44.309 Post-traumatic headache, unspecified, not intractable; D64.9 Anemia, unspecified; F14.11 Cocaine abuse, in remission; G47.33 Obstructive sleep apnea (adult) (pediatric); I69.398 Other sequelae of cerebral infarction; I25.2 Old myocardial infarction; Z79.01 Long term (current) use of anticoagulants; Z79.82 Long term (current) use of aspirin; Z79.899 Other long term (current) drug therapy; Z79.4 Long term (current) use of insulin; Z91.19 Patient's noncompliance with other medical treatment and regimen; Z95.1 Presence of aortocoronary bypass graft; Z79.891 Long term (current) use of opiate analgesic
CPT/HCPCS: 36415; 70450; 71045; 71046; 80048; 80053; 81001; 82550; 82553; 82962; 83880; 84484; 85025; 87040; 93005; 93010; 94640; 94667; 94799; 96365; 99285; J1815; J1940; J2543; J3370; J3490; J7050; J7620

== ENCOUNTER 2019-04-20 18:11 | Emergency (ER) | payer MEDICARE, MEDICAID ==
--- NOTE | 2019-04-20 18:59 | RADIOLOGY REPORT (SQ) ---
EXAM DESCRIPTION: CHEST SINGLE VIEW COMPLETED DATE/TIME: 04/20/2019 6:35 pm REASON FOR STUDY: dyspnea COMPARISON: In March 2026 EXAM PARAMETERS: NUMBER OF VIEWS: One view. TECHNIQUE: Single frontal radiographic view of the chest acquired. RADIATION DOSE: NA LIMITATIONS: None. FINDINGS: LUNGS AND PLEURA: No opacities, masses or pneumothorax. No pleural effusion. MEDIASTINUM AND HILAR STRUCTURES: No masses. Contour normal. HEART AND VASCULAR STRUCTURES: Stable cardiomegaly. The aorta is calcific and tortuous BONES: No acute findings. HARDWARE: None in the chest. OTHER: Stable postsurgical changes about the mediastinum IMPRESSION: Stable cardiomegaly. No acute findings. TECHNICAL DOCUMENTATION: JOB ID: [id number] 2010 [employer]- All Rights Reserved Reading location - IP/workstation name: [email or web address]
[2019-04-20 20:18] LABS: ABSOLUTE EOSINOPHILS # (AUTO) 0.1 10^3/uL (0.0-0.6); ABSOLUTE MONOCYTES (AUTO) 0.6 10^3/uL (0.1-1.4); ABSOLUTE NEUT (AUTO) 9.9 10^3/uL (1.7-8.2); BASOPHILS % (AUTO) 0.3 % (0-2); EOSINOPHILS % (AUTO) 1.1 % (0-6); HEMATOCRIT 35.7 % (36.0-47.0); HEMOGLOBIN 11.4 g/dL (12.0-15.5); LYMPHOCYTES % (AUTO) 8.6 % (13-45); MEAN CORPUSCULAR HEMOGLOBIN 30.6 pg (27.0-33.4); MEAN CORPUSCULAR HGB CONC 31.9 g/dL (32.0-36.0); MEAN CORPUSCULAR VOLUME 96 fl (80-97); MONOCYTES % (AUTO) 5.1 % (3-13); PLATELET COUNT 259 10^3/uL (150-450); RED BLOOD COUNT 3.72 10^6/uL (3.72-5.28); RED CELL DISTRIBUTION WIDTH 17.4 % (11.5-14.0); SEGMENTED NEUTROPHILS % (AUTO) 84.9 % (42-78); TOTAL CELLS COUNTED % (AUTO) 100 %; WHITE BLOOD COUNT 11.7 10^3/uL (4.0-10.5)
--- NOTE | 2019-04-20 20:23 | ER Document Report ---
ED General - General Chief Complaint: Shortness Of Breath Stated Complaint: TROUBLE BREATHING Time Seen by Provider: 04/20/19 20:07 Primary Care Provider: RENAN LAZAR MD [Primary Care Provider] - Follow up as needed Mode of Arrival: Medic Information source: Patient TRAVEL OUTSIDE OF THE [place] IN LAST 30 DAYS: No - HPI Onset: Other - over the last few days Onset/Duration: Gradual Quality of pain: No pain Severity: Mild Pain Level: Denies Associated symptoms: Nonproductive cough, Shortness of breath Exacerbated by: Other - exertion Relieved by: Denies Similar symptoms previously: No Recently seen / treated by doctor: Yes - patient was just admitted for pneumonia and discharged yesterday (04/19/19) Notes: 63 year old female with a history of CAD s/p CABG, CHF, CVA, HTN, HLD, DM, PVD who was just admitted for pneumonia (discharged yesterday and still on Levaquin) here for continued shortness of breath. The patient says she felt better at the time of discharge but now she is feeling short of breath again. 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 The patient denies chest pain, fevers, chills, sweats, productive cough. The patient says overall she feels much better then when she had pneumonia in the early stages. - Related Data Allergies/Adverse Reactions: pregabalin [From Lyrica] Allergy (Intermediate, Verified 04/04/19 09:00) RASH duloxetine Allergy (Verified 04/04/19 09:00) Past Medical History - General Information source: Patient - Social History Smoking Status: Former Smoker Chew tobacco use (# tins/day): No Frequency of alcohol use: None Drug Abuse: None Lives with: Family Family History: CAD, Hyperlipidemia, Hypertension, Reviewed & Not Pertinent Patient has suicidal ideation: No Patient has homicidal ideation: No - Past Medical History Cardiac Medical History: Reports: Hx Congestive Heart Failure, Hx Coronary Artery Disease, Hx Heart Attack, Hx Hypercholesterolemia, Hx Hypertension, Hx Peripheral Vascular Disease Denies: Hx Atrial Fibrillation Pulmonary Medical History: Reports: Hx Bronchitis Denies: Hx Asthma, Hx COPD, Hx Pneumonia, Hx Tuberculosis Neurological Medical History: Reports: Hx Cerebrovascular Accident - 2007 Denies: Hx Seizures, Hx Parkinson's Disease Endocrine Medical History: Reports: Hx Diabetes Mellitus Type 1, Hx Diabetes Mellitus Type 2 Renal/ Medical History: Denies: Hx End Stage Renal Disease, Hx Peritoneal Dialysis Malignancy Medical History: GI Medical History: Reports: Hx Diverticulitis - diverticulosis. Denies: Hx Gastroesophageal Reflux Disease, Hx Hiatal Hernia Musculoskeletal Medical History: Denies Hx Arthritis, Denies Hx Systemic Lupus Erythematosus Skin Medical History: Denies Hx MRSA Psychiatric Medical History: Denies: Hx Bipolar Disorder, Hx Depression Traumatic Medical History: Infectious Medical History: Past Surgical History: Reports: Hx Cardiac Surgery - quad bypass, Hx Coronary Artery Bypass Graft - May 16 2011, Hx Tonsillectomy, Hx Vascular Surgery. Denies: Hx Appendectomy, Hx Cardiac Catheterization, Hx Section, Hx Cholecystectomy, Hx Hysterectomy, Hx Mastectomy, Hx Tubal Ligation - Immunizations Immunizations up to date: No Hx Diphtheria, Pertussis, Tetanus Vaccination: Yes Hx Pneumococcal Vaccination: 11/20/10 Review of Systems - Review of Systems Constitutional: No symptoms reported EENT: No symptoms reported Cardiovascular: No symptoms reported Respiratory: Short of breath Gastrointestinal: No symptoms reported Genitourinary: No symptoms reported Female Genitourinary: No symptoms reported Musculoskeletal: No symptoms reported Skin: No symptoms reported Hematologic/Lymphatic: No symptoms reported Neurological/Psychological: No symptoms reported -: Yes All other systems reviewed and negative Physical Exam - Vital signs Vitals: Temp 98.9 F 04/20/19 18:22 - Notes Notes: GENERAL: Chronically ill-appearing, well-nourished and in no acute distress. HEAD: Atraumatic, normocephalic. EYES: Pupils equal round and reactive to light, extraocular movements intact, sclera anicteric, conjunctiva are normal. ENT: TMs normal, nares patent, oropharynx clear without exudates. Moist mucous membranes. NECK: Normal range of motion, supple without lymphadenopathy or JVD. LUNGS: Breath sounds clear to auscultation bilaterally and equal. No wheezes rales or rhonchi. HEART: Regular rate and rhythm without murmurs, rubs or gallops. ABDOMEN: Soft, nontender, normoactive bowel sounds. No guarding, no rebound. No masses appreciated. EXTREMITIES: Normal range of motion, no pitting or edema. No clubbing or cyanosis. NEUROLOGICAL: Cranial nerves II through XII grossly intact. Normal speech, normal gait. PSYCH: Normal mood, normal affect. SKIN: Warm, Dry, normal turgor, no rashes or lesions noted. Course - Re-evaluation Re-evalutation: 04/20/19 22:10 The patient is here in the ER since she feels short of breath. She is sating fine on room air and her Xray shows she has cleared the pneumonia she used to have. The patient is requesting breathing treatments and oxygen for her home. I explained I could prescribe her breathing treatments and a nebulizer machine but that she would need to have oxygen prescribed from her PCP or a Desk Officer. Patient also told she could take an extra does of Lasix if she felt volume overloaded. - Vital Signs Vital signs: Temp Pulse Resp BP Pulse Ox 98.9 F 04/20/19 18:22 - Laboratory Result Diagrams: 04/20/19 19:55 04/20/19 19:55 Laboratory results interpreted by me: 04/20/19 04/20/19 04/20/19 19:55 19:55 19:55 WBC 11.7 H D Hgb 11.4 L D Hct 35.7 L MCHC 31.9 L RDW 17.4 H Lymph % (Auto) 8.6 L Absolute Neuts (auto) 9.9 H Seg Neutrophils % 84.9 H Glucose 193 H Direct Bilirubin 0.5 H Alkaline Phosphatase 440 H NT-Pro-B Natriuret Pep 82878 H Total Protein 8.9 H - Diagnostic Test Radiology reviewed: Image reviewed, Reports reviewed - EKG Interpretation by Me EKG shows normal: Sinus rhythm, Intervals, QRS Complexes, ST-T Waves Rate: Normal [place]/QRS: Left axis deviation Voltage: Consistant with LVH Additional EKG results interpreted by me: 04/20/19 22:13 PVCs present Discharge - Discharge Clinical Impression: Shortness of breath Heart failure Qualifiers: Heart failure type: other Qualified Code(s): I50.89 - Other heart failure; I50.8 - Other heart failure Condition: Stable Disposition: HOME, SELF-CARE Additional Instructions: Use breathing treatments at home as needed every 4-6 hours. Follow up with your primary care doctor or with a Desk Officer (Lung Specialist) if you would like to try and get home oxygen set up. Your Xray today in the ER shows that your pneumonia has cleared up. You can take an extra dose of your Lasix Medication if you feel like you are retaining fluid in your legs or having more trouble breathing. Tell your doctor if you do this and only take any extra dose of your Lasix for 3 days in a row. Prescriptions: Nebulizer and Compressor [Weikert Choice Nebulizer] 1 each MC Q6HP PRN #1 each PRN Reason: Ipratropium/Albuterol Sulfate [Duoneb 3 ml Ampul] 3 ml NEB RTQ6HP PRN 30 Days #60 [email or web address] PRN Reason: Referrals: RENAN LAZAR MD [Primary Care Provider] - Follow up as needed
[2019-04-20] MEDS ORDERED: IPRATROPIUM/ALBUTEROL 0.5-2.5 MG/3 ML AMPUL NEB ONE (20:31)
[2019-04-20 20:32] LABS: ALKALINE PHOSPHATASE 440 U/L (38-126); ANION GAP 10 (5-19); ASPARTATE AMINO TRANSFERASE 30 U/L (14-36); BILIRUBIN,DIRECT 0.5 mg/dL (0.0-0.4); BILIRUBIN,TOTAL 1.2 mg/dL (0.2-1.3); BLOOD UREA NITROGEN 13 mg/dL (7-20); CALCIUM 9.6 mg/dL (8.4-10.2); CARBON DIOXIDE 26 mmol/L (22-30); CHLORIDE 105 mmol/L (98-107); CREATINE KINASE 40 U/L (30-135); GLUCOSE 193 mg/dL (75-110); POTASSIUM 4.3 mmol/L (3.6-5.0); TOTAL PROTEIN 8.9 g/dL (6.3-8.2)
[2019-04-20 20:44] LABS: CREATINE KINASE MB 0.99 ng/mL (<4.55); TROPONIN I 0.024 ng/mL
--- NOTE | 2019-04-20 21:29 | EKG REPORT ---
SEVERITY:- ABNORMAL ECG - SINUS RHYTHM MULTIPLE VENTRICULAR PREMATURE COMPLEXES PROBABLE LEFT ATRIAL ABNORMALITY LVH WITH SECONDARY REPOLARIZATION ABNORMALITY BORDERLINE PROLONGED QT INTERVAL : Confirmed by: Gema Garcia MD 20-Apr-2019 21:28:42
[2019-04-20 22:55] VITALS: BP 119/97
[2019-04-20 23:02] LABS: APPEARANCE,URINE SLIGHTLY-CLOUDY; BILIRUBIN,URINE NEGATIVE (NEGATIVE); COLOR,URINE YELLOW; GLUCOSE, URINE NEGATIVE (NEGATIVE); KETONES,URINE NEGATIVE (NEGATIVE); LEUKOCYTE ESTERASE,URINE NEGATIVE (NEGATIVE); NITRITE,URINE NEGATIVE (NEGATIVE); PROTEIN,URINE >=500 mg/dL (NEGATIVE); URINE SPECIFIC GRAVITY 1.015; UROBILINOGEN,URINE NEGATIVE mg/dL (<2.0)
== END 2019-04-20 22:57 | disposition home or self-care (01) ==
LOC: ER 18:11
DX: I11.0 Hypertensive heart disease with heart failure (principal); I50.9 Heart failure, unspecified; J18.9 Pneumonia, unspecified organism; R06.02 Shortness of breath; R05 Cough; I25.10 Atherosclerotic heart disease of native coronary artery without angina pectoris; E11.51 Type 2 diabetes mellitus with diabetic peripheral angiopathy without gangrene; Z87.891 Personal history of nicotine dependence; Z95.1 Presence of aortocoronary bypass graft; Z88.6 Allergy status to analgesic agent
CPT/HCPCS: 93005; 94640; 99285; 36415; 82553; 82550; 85025; 80053; 81001; 84484; 83880; 71045; 93010; A9270; J7620

== ENCOUNTER 2019-04-22 15:55 | Emergency (ER) | payer MEDICARE, MEDICAID ==
[2019-04-22 16:10] VITALS: BP 183/94
== END 2019-04-22 17:20 | disposition left against medical advice (07) ==
LOC: ER 15:55
DX: Z53.21 Procedure and treatment not carried out due to patient leaving prior to being seen by health care provider (principal)

== ENCOUNTER 2019-04-23 06:50 | Emergency (ER) | payer MEDICARE, MEDICAID ==
--- NOTE | 2019-04-23 08:30 | RADIOLOGY REPORT (SQ) ---
EXAM DESCRIPTION: CHEST SINGLE VIEW COMPLETED DATE/TIME: 04/23/2019 7:52 am REASON FOR STUDY: Short of breath, dyspnea on exertion COMPARISON: 04/20/2019. EXAM PARAMETERS: NUMBER OF VIEWS: One view. TECHNIQUE: Single frontal radiographic view of the chest acquired. RADIATION DOSE: NA LIMITATIONS: None. FINDINGS: LUNGS AND PLEURA: No opacities, masses or pneumothorax. No pleural effusion. MEDIASTINUM AND HILAR STRUCTURES: No masses. Contour normal. HEART AND VASCULAR STRUCTURES: Stable cardiomegaly. Mild vascular prominence. BONES: No acute findings. HARDWARE: Sternotomy wires and sternal hardware OTHER: No other significant finding. IMPRESSION: NO SIGNIFICANT CHANGE. TECHNICAL DOCUMENTATION: JOB ID: [id number] 2010 [employer]- All Rights Reserved Reading location - IP/workstation name: [email or web address]
[2019-04-23 08:49] LABS: ABSOLUTE LYMPHOCYTES (AUTO) 0.8 10^3/uL (0.5-4.7); ABSOLUTE MONOCYTES (AUTO) 0.6 10^3/uL (0.1-1.4); BASOPHILS % (AUTO) 0.6 % (0-2); EOSINOPHILS % (AUTO) 0.6 % (0-6); HEMATOCRIT 28.9 % (36.0-47.0); HEMOGLOBIN 9.9 g/dL (12.0-15.5); LYMPHOCYTES % (AUTO) 11.2 % (13-45); MEAN CORPUSCULAR HGB CONC 34.3 g/dL (32.0-36.0); MEAN CORPUSCULAR VOLUME 93 fl (80-97); MONOCYTES % (AUTO) 7.3 % (3-13); PLATELET COUNT 264 10^3/uL (150-450); RED CELL DISTRIBUTION WIDTH 17.2 % (11.5-14.0); SEGMENTED NEUTROPHILS % (AUTO) 80.3 % (42-78); TOTAL CELLS COUNTED % (AUTO) 100 %; WHITE BLOOD COUNT 7.5 10^3/uL (4.0-10.5)
--- NOTE | 2019-04-23 08:53 | ER Document Report ---
Entered by LATHA MEDRANO SCRIBE 04/23/19 0732 Acting as scribe for:SHA GRIMES MD ED General - General Chief Complaint: Shortness Of Breath Stated Complaint: RESPIRATORY DISTRESS Time Seen by Provider: 04/23/19 07:20 Primary Care Provider: RENAN LAZAR MD [Primary Care Provider] - 04/23/19 (Call the office today to schedule a follow-up appointment for today or tomorrow.) Mode of Arrival: Ambulatory Information source: Patient Notes: This 63-year-old female patient presents to the emergency department today with complaints of shortness of breath stating "I need oxygen at home". Patient was seen here on 03/30/19 and was found to have an intracranial hemorrhage and was transferred to a tertiary care facility. Patient came back here on 04/12 and was admitted for a week with pneumonia, discharged on 04/19. Patient came to the ER the next day on and complained of shortness of breath requesting home oxygen and nebulizer which was prescribed. Patient states her nebulizer does not come in until tomorrow. Patient came to this ED yesterday but left without being seen. Patient states she is only short of breath with exertion. TRAVEL OUTSIDE OF THE [place] IN LAST 30 DAYS: No - Related Data Allergies/Adverse Reactions: pregabalin [From Lyrica] Allergy (Intermediate, Verified 04/04/19 09:00) RASH duloxetine Allergy (Verified 04/04/19 09:00) Home Medications: ASA Past Medical History - General Information source: Patient - Social History Smoking Status: Former Smoker Cigarette use (# per day): No Chew tobacco use (# tins/day): No Frequency of alcohol use: None Drug Abuse: None Lives with: Family Family History: CAD, Hyperlipidemia, Hypertension, Reviewed & Not Pertinent Patient has suicidal ideation: No Patient has homicidal ideation: No - Past Medical History Cardiac Medical History: Reports: Hx Congestive Heart Failure, Hx Coronary Artery Disease, Hx Heart Attack, Hx Hypercholesterolemia, Hx Hypertension, Hx Peripheral Vascular Disease Pulmonary Medical History: Reports: Hx Bronchitis Neurological Medical History: Reports: Hx Cerebrovascular Accident - 2007 Endocrine Medical History: Reports: Hx Diabetes Mellitus Type 2 Renal/ Medical History: Malignancy Medical History: GI Medical History: Reports: Hx Diverticulitis - diverticulosis Musculoskeletal Medical History: Psychiatric Medical History: Traumatic Medical History: Infectious Medical History: Past Surgical History: Reports: Hx Cardiac Surgery - quad bypass, Hx Coronary Artery Bypass Graft - May 16 2011, Hx Tonsillectomy, Hx Vascular Surgery - Immunizations Immunizations up to date: No Hx Diphtheria, Pertussis, Tetanus Vaccination: Yes Hx Pneumococcal Vaccination: 11/20/10 Review of Systems - Review of Systems Constitutional: No symptoms reported EENT: No symptoms reported Cardiovascular: No symptoms reported Respiratory: See HPI, Short of breath Gastrointestinal: No symptoms reported Genitourinary: No symptoms reported Female Genitourinary: No symptoms reported Musculoskeletal: No symptoms reported Skin: No symptoms reported Hematologic/Lymphatic: No symptoms reported Neurological/Psychological: No symptoms reported -: Yes All other systems reviewed and negative Physical Exam - Vital signs Vitals: Temp Pulse Ox 97.8 F 99 04/23/19 06:54 04/23/19 06:54 - Notes Notes: Physical Exam: General: Alert, appears well. HEENT: Normocephalic. Atraumatic. PERRL. Extraocular movements intact. Oropharynx clear. Neck: Supple. Non-tender. Respiratory: No respiratory distress. Rhonchi with forced cough in the right lower lobe. Cardiovascular: Occasional bigeminal rhythm, regular rate. Abdominal: Obese. Non-tender. No distension. Normal Bowel Sounds. Back: No gross abnormalities. Extremities: Moves all four extremities. Upper extremities: Normal inspection. Normal ROM. Lower extremities: 3+ pitting edema bilaterally. Neurological: Normal cognition. AAOx4. Normal speech. Psychological: Normal affect. Normal Mood. Skin: Warm. Dry. Normal color. Course - Re-evaluation Re-evalutation: 04/23/19 09:43 During the physical exam while is listening to the patient's heart, I noticed a irregularly irregular rhythm, and looking at the monitor it appeared to be a bigeminal type rhythm with compensatory pause, it did not look like these were PVCs but rather perhaps premature atrial contractions. Shortly after I stopped the exam, the arrhythmia stopped and I have not seen it return. The patient's BNP today is 13,300, when she was admitted with a diagnosis of pneumonia and heart failure on 04/12/19 it was 8470, and the day after she was discharged when she returned to the emergency room on 04/20/2019 it was 12,900. 04/23/19 13:21 At this time the patient is asleep, the oxygen is turned off, her oxygen saturations asleep is 89%. - Vital Signs Vital signs: Temp Pulse Resp BP Pulse Ox 97.8 F 21 H 178/95 H 97 04/23/19 06:54 04/23/19 09:01 04/23/19 09:01 04/23/19 09:01 - Laboratory Result Diagrams: 04/23/19 08:30 04/23/19 08:30 Laboratory results interpreted by me: 04/23/19 04/23/19 04/23/19 08:30 08:30 08:30 RBC 3.10 L Hgb 9.9 L Hct 28.9 L RDW 17.2 H Lymph % (Auto) 11.2 L Seg Neutrophils % 80.3 H Glucose 156 H Direct Bilirubin 0.6 H Alkaline Phosphatase 336 H NT-Pro-B Natriuret Pep 62484 H Urine Protein Urine Ketones Urine Urobilinogen 04/23/19 09:00 RBC Hgb Hct RDW Lymph % (Auto) Seg Neutrophils % Glucose Direct Bilirubin Alkaline Phosphatase NT-Pro-B Natriuret Pep Urine Protein >=500 H Urine Ketones 20 H Urine Urobilinogen 2.0 H - Diagnostic Test Radiology reviewed: Image reviewed, Reports reviewed - Stable cardiomegaly, mild vascular prominence - EKG Interpretation by Me EKG shows normal: Sinus rhythm, [place], Intervals - Borderline prolonged QT interval, QRS Complexes, ST-T Waves Rate: Normal - 86 Rhythm: NSR Voltage: Consistant with LVH P Waves: LAE When compared to previous EKG there are: No significant change - Consults Dr. Lazar Time consulted: 13:25 Consulted provider: follow-up in office - Reports the patient was supposed to come to the office to see him and coordinate getting oxygen at home. She has been a no-show at least twice. He requests that she be instructed to come to the office to be seen for follow-up management. Discharge - Discharge Clinical Impression: Dyspnea on exertion Chronic congestive heart failure Qualifiers: Heart failure type: unspecified Qualified Code(s): I50.9 - Heart failure, unspecified Condition: Stable Disposition: HOME, SELF-CARE Additional Instructions: You appear to have chronic congestive heart failure. You need to be sure that you take your medications every day. Call Dr. Lazar or go by the office today to schedule an appointment for ev aluation for home oxygen. RETURN TO THE EMERGENCY ROOM IF ANY NEW OR WORSENING SYMPTOMS. Referrals: RENAN LAZAR MD [Primary Care Provider] - 04/23/19 (Call the office today to schedule a follow-up appointment for today or tomorrow.) I personally performed the services described in the documentation, reviewed and edited the documentation which was dictated to the scribe in my presence, and it accurately records my words and actions.
[2019-04-23] MEDS ORDERED: ACETAMINOPHEN 325 MG TABLET PO ONE (08:58)
[2019-04-23] MEDS ORDERED: FUROSEMIDE INJ/PF 20 MG/2 ML SDV IV ONE (08:58)
[2019-04-23 09:10] LABS: ALBUMIN 3.6 g/dL (3.5-5.0); ALKALINE PHOSPHATASE 336 U/L (38-126); ANION GAP 12 (5-19); ASPARTATE AMINO TRANSFERASE 18 U/L (14-36); BILIRUBIN,DIRECT 0.6 mg/dL (0.0-0.4); BILIRUBIN,TOTAL 1.2 mg/dL (0.2-1.3); BLOOD UREA NITROGEN 12 mg/dL (7-20); CALCIUM 9.3 mg/dL (8.4-10.2); CARBON DIOXIDE 25 mmol/L (22-30); CHLORIDE 104 mmol/L (98-107); CREATINE KINASE 35 U/L (30-135); GLUCOSE 156 mg/dL (75-110); POTASSIUM 4.2 mmol/L (3.6-5.0); TOTAL PROTEIN 8.2 g/dL (6.3-8.2)
[2019-04-23 09:21] LABS: TROPONIN I 0.013 ng/mL
[2019-04-23 09:37] LABS: APPEARANCE,URINE SLIGHTLY-CLOUDY; BILIRUBIN,URINE NEGATIVE (NEGATIVE); COLOR,URINE YELLOW; GLUCOSE, URINE NEGATIVE (NEGATIVE); KETONES,URINE 20 mg/dL (NEGATIVE); LEUKOCYTE ESTERASE,URINE NEGATIVE (NEGATIVE); NITRITE,URINE NEGATIVE (NEGATIVE); PROTEIN,URINE >=500 mg/dL (NEGATIVE); URINE SPECIFIC GRAVITY 1.014
--- NOTE | 2019-04-23 12:10 | EKG REPORT ---
SEVERITY:- ABNORMAL ECG - SINUS RHYTHM LEFT ATRIAL ABNORMALITY LEFT VENTRICULAR HYPERTROPHY BORDERLINE PROLONGED QT INTERVAL NONSPECIFIC ST-T CHANGES LATERAL LEADS : Confirmed by: Thong Willett MD 23-Apr-2019 12:09:53
[2019-04-23 16:06] VITALS: BP 182/95
== END 2019-04-23 15:50 | disposition home or self-care (01) ==
LOC: ER 06:50
DX: I11.0 Hypertensive heart disease with heart failure (principal); I50.9 Heart failure, unspecified; I49.9 Cardiac arrhythmia, unspecified; I25.10 Atherosclerotic heart disease of native coronary artery without angina pectoris; E11.51 Type 2 diabetes mellitus with diabetic peripheral angiopathy without gangrene; Z79.82 Long term (current) use of aspirin; Z87.891 Personal history of nicotine dependence; Z95.1 Presence of aortocoronary bypass graft; Z88.6 Allergy status to analgesic agent
CPT/HCPCS: 93005; 99285; 96374; 36415; 82550; 85025; 80053; 81001; 84484; 83880; 71045; 93010; A9270; J1940

== ENCOUNTER 2019-05-08 02:39 | Inpatient (IN) | payer MEDICARE, MEDICAID ==
[2019-05-08] MEDS ORDERED: ACETAMINOPHEN 325 MG TABLET PO ONE (07:05)
--- NOTE | 2019-05-08 07:29 | ER Document Report ---
Entered by VANNA KUMAR SCRIBE 05/08/19 0654 Acting as scribe for:SHA GRIMES MD ED General - General Chief Complaint: Shortness Of Breath Stated Complaint: SHORTNESS OF BREATH Time Seen by Provider: 05/08/19 06:51 Primary Care Provider: RENAN LAZAR MD [Primary Care Provider] - Follow up as needed Mode of Arrival: Medic Information source: Patient, [facility] Records Notes: This 63 year old female patient with a history of CHF, CAD, HLD, HTN, PVD, CVA, and bronchitis brought in by EMS presents to the ED today with complaints of s hortness of breath that started x1 day ago. Patient also reports intermittent chest pain and a headache located at the top of her head and above her eyes. Patient states that "I feel so dizzy, I want to pass out". Patient has wanted O2 at home for over a month and at her last visit x15 days ago, patient was advised to go to her PCP to try to get it via doctor's request; however, the patient states that her PCP's office was too busy, so she left without being seen. Patient does report that she has an appointment to see her PCP next week. Reviewing her pharmacy records reveal that the patient is on chronic pain management receiving a x30 day supply of Oxycodone 7.5 mg qid that is irregularly filled every other month, with the last time being on 03/14/19. TRAVEL OUTSIDE OF THE [place] IN LAST 30 DAYS: No - Related Data Allergies/Adverse Reactions: pregabalin [From Lyrica] Allergy (Intermediate, Verified 04/04/19 09:00) RASH duloxetine Allergy (Verified 04/04/19 09:00) Past Medical History - General Information source: Patient, [facility] Records - Social History Smoking Status: Former Smoker Cigarette use (# per day): No Chew tobacco use (# tins/day): No Smoking Education Provided: No Family History: CAD, Hyperlipidemia, Hypertension, Reviewed & Not Pertinent Patient has suicidal ideation: No Patient has homicidal ideation: No - Past Medical History Cardiac Medical History: Reports: Hx Congestive Heart Failure, Hx Coronary Artery Disease, Hx Heart Attack, Hx Hypercholesterolemia, Hx Hypertension, Hx Peripheral Vascular Disease Pulmonary Medical History: Reports: Hx Bronchitis Neurological Medical History: Reports: Hx Cerebrovascular Accident - 2007 Endocrine Medical History: Reports: Hx Diabetes Mellitus Type 1, Hx Diabetes Mellitus Type 2 Renal/ Medical History: Malignancy Medical History: GI Medical History: Reports: Hx Diverticulitis - diverticulosis Musculoskeletal Medical History: Psychiatric Medical History: Traumatic Medical History: Infectious Medical History: Past Surgical History: Reports: Hx Cardiac Surgery - quad bypass, Hx Coronary Artery Bypass Graft - May 16 2011, Hx Tonsillectomy, Hx Vascular Surgery - Immunizations Immunizations up to date: No Hx Diphtheria, Pertussis, Tetanus Vaccination: Yes Hx Pneumococcal Vaccination: 11/20/10 Review of Systems - Review of Systems Constitutional: See HPI. denies: Fever EENT: No symptoms reported Cardiovascular: See HPI, Chest pain, Dizziness Respiratory: See HPI, Short of breath Gastrointestinal: No symptoms reported Genitourinary: No symptoms reported Female Genitourinary: No symptoms reported Musculoskeletal: No symptoms reported Skin: No symptoms reported Hematologic/Lymphatic: No symptoms reported Neurological/Psychological: See HPI, Headaches Physical Exam - Vital signs Vitals: Temp Pulse Resp BP Pulse Ox 98.5 F 85 16 195/88 H 95 05/08/19 02:58 05/08/19 02:58 05/08/19 02:58 05/08/19 02:58 05/08/19 02:58 Interpretation: Hypertensive - General General appearance: Alert - HEENT Head: Normocephalic, Atraumatic Eyes: Normal Pupils: PERRL - Respiratory Respiratory status: Tachypnea Breath sounds: Rales - Cardiovascular Rhythm: Regular Heart sounds: Normal auscultation Murmur: Yes - Systolic with occasional drop beats Friction rub: No Gallop: None auscultated - Abdominal Inspection: Obese Distension: No distension Bowel sounds: Normal Tenderness: Nontender - Abdomen soft Organomegaly: No organomegaly - Back Back: Normal, Nontender - Extremities General upper extremity: Normal inspection General lower extremity: Edema - 3+ edema - Neurological Neuro grossly intact: Yes Orientation: AAOx4 - Psychological Associated symptoms: Depressed - Skin Skin Temperature: Warm Skin Moisture: Dry Skin Color: Normal Course - Re-evaluation Re-evalutation: 05/08/19 10:16 Patient's room air ABG shows that she is a CO2 retainer, but she is also h ypoxic, most likely due to her pulmonary edema. Her high blood pressure, and her fluid overload suggest that she may not be compliant with her medications. - Vital Signs Vital signs: Temp Pulse Resp BP Pulse Ox 98.5 F 85 23 H 188/98 H 95 05/08/19 02:58 05/08/19 02:58 05/08/19 08:00 05/08/19 07:00 05/08/19 08:00 - Laboratory Result Diagrams: 05/08/19 08:10 05/08/19 08:10 Laboratory results interpreted by me: 05/08/19 05/08/19 05/08/19 07:01 08:10 08:10 RBC 3.57 L Hgb 10.9 L Hct 33.9 L RDW 17.3 H Carbonic Acid ABG pCO2 ABG pO2 ABG HCO3 ABG Total CO2 ABG O2 Saturation Chloride 108 H Creatinine 0.48 L Glucose 128 H POC Glucose 119 H Direct Bilirubin 0.5 H Alkaline Phosphatase 311 H Creatine Kinase 27 L NT-Pro-B Natriuret Pep Total Protein 9.2 H 05/08/19 05/08/19 08:10 08:25 RBC Hgb Hct RDW Carbonic Acid 1.38 H ABG pCO2 45.7 H ABG pO2 56.8 L ABG HCO3 26.0 H ABG Total CO2 27.4 H ABG O2 Saturation 88.7 L Chloride Creatinine Glucose POC Glucose Direct Bilirubin Alkaline Phosphatase Creatine Kinase NT-Pro-B Natriuret Pep 9040 H Total Protein - Diagnostic Test Radiology reviewed: Image reviewed, Reports reviewed - Chest x-ray shows cardiomegaly with moderate pulmonary edema. This is new compared to 04/23/2019. - EKG Interpretation by Me EKG shows normal: Sinus rhythm, [place], QRS Complexes, ST-T Waves. abnormal: Intervals - Borderline QT interval Rate: Normal - 81 Rhythm: NSR, PVC's Voltage: Consistant with LVH - Consults Dr. Lazar Time consulted: 10:10 Consulted provider: will see as inpatient Critical Care Note - Critical Care Note Total time excluding time spent on procedures (mins): 35 Discharge - Discharge Clinical Impression: Acute on chronic combined systolic and diastolic CHF, NYHA class 3, Diabetes mellitus type 2 in obese, Hypoxemia requiring supplemental oxygen Congestive heart failure (CHF) Qualifiers: Heart failure type: unspecified Heart failure chronicity: acute on chronic Qu alified Code(s): I50.9 - Heart failure, unspecified COPD (chronic obstructive pulmonary disease) Qualifiers: COPD type: unspecified COPD Qualified Code(s): J44.9 - Chronic obstructive pulmonary disease, unspecified Headache Qualifiers: Headache type: unspecified Headache chronicity pattern: unspecified pattern Intractability: not intractable Qualified Code(s): R51 - Headache Dyspnea Qualifiers: Dyspnea type: unspecified Qualified Code(s): R06.00 - Dyspnea, unspecified High blood pressure Qualifiers: Hypertension type: essential hypertension Qualified Code(s): I10 - Essential (primary) hypertension Condition: Good Disposition: ADMITTED INPATIENT Admitting Provider: Shahri[facility] Unit Admitted: [facility] Referrals: RENAN LAZAR MD [Primary Care Provider] - Follow up as needed I personally performed the services described in the documentation, reviewed and edited the documentation which was dictated to the scribe in my presence, and it accurately records my words and actions.
--- NOTE | 2019-05-08 08:09 | RADIOLOGY REPORT (SQ) ---
EXAM DESCRIPTION: CHEST 2 VIEWS COMPLETED DATE/TIME: 05/08/2019 6:47 am REASON FOR STUDY: SOB common dyspnea on exertion COMPARISON: 04/23/2019 EXAM PARAMETERS: NUMBER OF VIEWS: two views TECHNIQUE: Digital Frontal and Lateral radiographic views of the chest acquired. RADIATION DOSE: NA LIMITATIONS: none FINDINGS: LUNGS AND PLEURA: Interval increase in interstitial prominence with multiple patchy alveol ar opacities in both lungs. Small left pleural effusion. No pneumothorax. MEDIASTINUM AND HILAR STRUCTURES: No masses or contour abnormalities. HEART AND VASCULAR STRUCTURES: Postoperative changes in the mediastinum. Moderate cardiomegaly. Mod erate pulmonary edema. BONES: No acute findings. HARDWARE: None in the chest. OTHER: No other significant finding. IMPRESSION: Moderate pulmonary edema. Diffuse increased interstitial prominence may represent super imposed infection/inflammatory process. TECHNICAL DOCUMENTATION: JOB ID: [id number] 2010 [employer]- All Rights Reserved Reading location - IP/workstation name: [email or web address]
[2019-05-08 08:28] LABS: ABSOLUTE EOSINOPHILS # (AUTO) 0.1 10^3/uL (0.0-0.6); ABSOLUTE LYMPHOCYTES (AUTO) 1.2 10^3/uL (0.5-4.7); ABSOLUTE MONOCYTES (AUTO) 0.5 10^3/uL (0.1-1.4); ABSOLUTE NEUT (AUTO) 3.7 10^3/uL (1.7-8.2); BASOPHILS % (AUTO) 0.7 % (0-2); HEMATOCRIT 33.9 % (36.0-47.0); HEMOGLOBIN 10.9 g/dL (12.0-15.5); LYMPHOCYTES % (AUTO) 21.9 % (13-45); MEAN CORPUSCULAR HEMOGLOBIN 30.7 pg (27.0-33.4); MEAN CORPUSCULAR HGB CONC 32.2 g/dL (32.0-36.0); MEAN CORPUSCULAR VOLUME 95 fl (80-97); MONOCYTES % (AUTO) 9.6 % (3-13); PLATELET COUNT 220 10^3/uL (150-450); RED BLOOD COUNT 3.57 10^6/uL (3.72-5.28); RED CELL DISTRIBUTION WIDTH 17.3 % (11.5-14.0); SEGMENTED NEUTROPHILS % (AUTO) 66.8 % (42-78); TOTAL CELLS COUNTED % (AUTO) 100 %; WHITE BLOOD COUNT 5.5 10^3/uL (4.0-10.5)
[2019-05-08 08:36] LABS: ARTERIAL BLOOD BASE EXCESS 0.5 mmol/L; ARTERIAL BLOOD H2CO3 1.38 mmol/L (1.05-1.35); ARTERIAL BLOOD O2 SATURATION 88.7 % (94-98); ARTERIAL BLOOD PCO2 45.7 mmHg (35-45); ARTERIAL BLOOD PH 7.37 (7.35-7.45); ARTERIAL BLOOD PO2 56.8 mmHg (80-100); ARTERIAL BLOOD TOTAL CO2 27.4 mmol/L (21-25)
[2019-05-08 08:38] LABS: ARTERIAL BLOOD FIO2 ROOM AIR
[2019-05-08 08:45] LABS: ALKALINE PHOSPHATASE 311 U/L (38-126); ANION GAP 10 (5-19); ASPARTATE AMINO TRANSFERASE 25 U/L (14-36); BILIRUBIN,DIRECT 0.5 mg/dL (0.0-0.4); BILIRUBIN,TOTAL 1.1 mg/dL (0.2-1.3); BLOOD UREA NITROGEN 7 mg/dL (7-20); CALCIUM 9.8 mg/dL (8.4-10.2); CARBON DIOXIDE 24 mmol/L (22-30); CHLORIDE 108 mmol/L (98-107); CREATINE KINASE 27 U/L (30-135); GLUCOSE 128 mg/dL (75-110); POTASSIUM 4.3 mmol/L (3.6-5.0); TOTAL PROTEIN 9.2 g/dL (6.3-8.2)
[2019-05-08 08:58] LABS: CREATINE KINASE MB 0.55 ng/mL (<4.55)
[2019-05-08 09:03] LABS: TROPONIN I < 0.012 ng/mL
[2019-05-08] MEDS ORDERED: FUROSEMIDE INJ/PF 100 MG/10 ML SDV IV ONE ×2 (09:14→13:30)
--- NOTE | 2019-05-08 11:14 | EKG REPORT ---
SEVERITY:- ABNORMAL ECG - SINUS RHYTHM MULTIPLE VENTRICULAR PREMATURE COMPLEXES LVH WITH SECONDARY REPOLARIZATION ABNORMALITY BORDERLINE PROLONGED QT INTERVAL : Confirmed by: Gema Garcia MD 08-May-2019 11:13:52
[2019-05-08 11:38] LABS: APPEARANCE,URINE CLEAR; BILIRUBIN,URINE NEGATIVE (NEGATIVE); COLOR,URINE YELLOW; GLUCOSE, URINE NEGATIVE (NEGATIVE); KETONES,URINE NEGATIVE (NEGATIVE); LEUKOCYTE ESTERASE,URINE NEGATIVE (NEGATIVE); NITRITE,URINE NEGATIVE (NEGATIVE); PROTEIN,URINE >=500 mg/dL (NEGATIVE); URINE SPECIFIC GRAVITY 1.011
[2019-05-08] MEDS ORDERED: IPRATROPIUM/ALBUTEROL 0.5-2.5 MG/3 ML AMPUL NEB PRN (18:28)
[2019-05-08] MEDS ORDERED: DOCUSATE SODIUM 100 MG CAPSULE PO PRN (18:28)
[2019-05-08] MEDS ORDERED: GLUCAGON,HUMAN RECOMB 1 MG INJ IM PRN (18:32)
[2019-05-08] MEDS ORDERED: DEXTROSE 50%-WATER 25 GM/50 ML DISP.SYRIN IV PRN ×2 (18:32)
[2019-05-08] MEDS ORDERED: DEXTROSE 40% GEL 15 GM TUBE PO PRN ×2 (18:32)
[2019-05-08] MEDS: DICYCLOMINE HCL 10 MG CAPSULE PO SCH (21:53)
[2019-05-08] MEDS: MESALAMINE 400 MG CAPSULE.DR PO SCH (21:53)
[2019-05-08] MEDS: GABAPENTIN 300 MG CAPSULE PO SCH (21:54)
[2019-05-08] MEDS: HYDRALAZINE HCL 50 MG TABLET PO SCH (21:54)
[2019-05-08] MEDS: ESCITALOPRAM OXALATE 10 MG TABLET PO SCH (21:55)
[2019-05-08] MEDS: CARVEDILOL 12.5 MG TABLET PO SCH (21:55)
[2019-05-08] MEDS: ATORVASTATIN CALCIUM 20 MG TABLET PO SCH (21:56)
[2019-05-08] MEDS: FUROSEMIDE INJ/PF 40 MG/4 ML SDV IV SCH (21:56)
[2019-05-08] MEDS: INSULIN LISPRO 100 UNIT/ML 3 ML VIAL SUBCUT SCH (21:57)
[2019-05-08] MEDS: SUCRALFATE 1 GM TABLET PO SCH (21:58)
[2019-05-08] MEDS ORDERED: (PENDING PHARMACY ID) (Hydralazine Hcl [Hydralazine Hcl] 100 MG) PO SCH (22:00)
[2019-05-08] MEDS ORDERED: ACETAMINOPHEN 325 MG TABLET PO PRN (23:45)
[2019-05-09] MEDS: HYDROCODONE/ACETAMINOPHEN 7.5-325 MG TABLET PO PRN ×4 (00:28→23:12)
[2019-05-09] MEDS: MESALAMINE 400 MG CAPSULE.DR PO SCH ×3 (05:59→21:45)
[2019-05-09] MEDS: HYDRALAZINE HCL 50 MG TABLET PO SCH ×3 (05:59→21:46)
[2019-05-09] MEDS: GABAPENTIN 300 MG CAPSULE PO SCH ×3 (05:59→21:45)
[2019-05-09] MEDS: INSULIN LISPRO 100 UNIT/ML 3 ML VIAL SUBCUT SCH ×4 (09:26→22:01)
[2019-05-09] MEDS: ASCORBIC ACID 500 MG TABLET PO SCH (09:34)
[2019-05-09] MEDS: FUROSEMIDE INJ/PF 40 MG/4 ML SDV IV SCH ×2 (09:34→21:22)
[2019-05-09] MEDS: CHOLECALCIFEROL (D3) 1,000 UNIT (25 MCG) TABLET PO SCH (09:34)
[2019-05-09] MEDS: MULTIVITAMIN TABLET PO SCH (09:34)
[2019-05-09] MEDS: CARVEDILOL 12.5 MG TABLET PO SCH ×2 (09:35→21:47)
[2019-05-09] MEDS: DICYCLOMINE HCL 10 MG CAPSULE PO SCH ×4 (09:35→21:45)
[2019-05-09] MEDS: AMLODIPINE BESYLATE 10 MG TABLET PO SCH (09:35)
[2019-05-09] MEDS: FAMOTIDINE 20 MG TABLET PO SCH ×2 (09:35→17:57)
[2019-05-09] MEDS: LOSARTAN POTASSIUM 50 MG TABLET PO SCH (09:35)
[2019-05-09] MEDS: FERROUS SULFATE 325 MG TABLET PO SCH (09:35)
[2019-05-09] MEDS: SUCRALFATE 1 GM TABLET PO SCH ×4 (09:36→21:46)
[2019-05-09] MEDS ORDERED: MESALAMINE 800 MG PO SCH (10:00)
[2019-05-09] MEDS ORDERED: (PENDING PHARMACY ID) (Insulin Degludec [Tresiba Flextouch U-100] 40 UNIT) SQ SCH (10:00)
[2019-05-09] MEDS ORDERED: (PENDING PHARMACY ID) (Olmesartan Medoxomil [Benicar] 20 MG) PO SCH (10:00)
[2019-05-09] MEDS ORDERED: MULTIVIT TX WITH IRON MINERALS PO SCH (10:00)
[2019-05-09] MEDS: ATORVASTATIN CALCIUM 20 MG TABLET PO SCH (21:45)
[2019-05-09] MEDS: ESCITALOPRAM OXALATE 10 MG TABLET PO SCH (21:46)
--- NOTE | 2019-05-09 22:12 | PDOC H&P ---
History of Present Illness Admission Date/PCP: 05/08/19 13:02 RENAN LAZAR History of Present Illness: LEEANN FUNEZ is a 63 year old female patient known to my practice who repeatedly present to the ED with complain about difficulty with breathing. She was recently discharged from this hospital but had subsequently presented to the ED demanding for oxygen at home. She recently had hemorrhagic stroke with urine positive drug screen for cocaine and severely elevated blood pressure upon presentation with the stroke symptoms. She was evacuated to [facility] and adequately treated. Subsequently she has had headache which was discussed with her neurology team at [facility] and she was made aware that her headache is consequence of her hemorrhagic stroke and will be recurring for a long time. She reported associated chest pain which she described as heaviness discomfort in her chest. No palpitation. There is chronic leg swelling. She claimed compliance with her prescribed medication and fluid restrictions. She denied any focal weakness. She denied any fever or chills. No coughing or exposure to acutely ill person or family members. Her initial ED evaluation was significant chest X ray that revealed pulmonary congestion and documented hypoxemia. She demonstrated significant improvement with administration of IV Furosemide. She was advised hospitalization for further evaluation and management. Her morbidities are as listed below. Past Medical History Cardiac Medical History: Reports: Congestive Heart Failure, Coronary Artery Disease, Myocardial Infarction, Hyperlipidema, Hypertension, Peripheral Vascular Disease Denies: Atrial Fibrillation Pulmonary Medical History: Reports: Bronchitis Denies: Asthma, Chronic Obstructive Pulmonary Disease (COPD), Pneumonia, Tuberculosis Neurological Medical History: Denies: Seizures Endocrine Medical History: Reports: Diabetes Mellitus Type 2 Renal/ Medical History: Denies: End Stage Renal Disease Malignancy Medical History: GI Medical History: Reports: Diverticulitis - diverticulosis Denies: Gastroesophageal Reflux Disease, Hiatal Hernia Musculoskeltal Medical History: Denies: Arthritis Skin Medical History: Reports: Other - left foot ulder Psychiatric Medical History: Denies: Bipolar Disorder, Depression Hematology: Denies: Anemia, Hemophilia, Sickle Cell Disease Infectious Medical History: Past Surgical History Past Surgical History: Reports: Coronary Artery Bypass Graft - May 16 2011, Tonsillectomy, Vascular Surgery Denies: Amputation, Appendectomy, Cardiac Catheterization, Section, Cholecystectomy, Hysterectomy, Mastectomy, Tubal Ligation Social History Smoking Status: Former Smoker Frequency of Alcohol Use: None Hx Recreational Drug Use: No Drugs: None Hx Prescription Drug Abuse: No Family History Family History: CAD, Hyperlipidemia, Hypertension, Reviewed & Not Pertinent Parental Family History Reviewed: Yes Children Family History Reviewed: Yes Sibling(s) Family History Reviewed.: Yes Medication/Allergy Home Medications: Amlodipine Besylate [Norvasc 10 mg Tablet] 10 mg PO DAILY 11/30/18 Ascorbic Acid [Vitamin C 500 mg Tablet] 500 mg PO DAILY 11/30/18 Atorvastatin Calcium [Lipitor 20 mg Tablet] 20 mg PO QHS 11/30/18 Docusate Sodium [Colace 100 mg Capsule] 100 mg PO BIDP PRN 11/30/18 Ferrous Sulfate [Feosol 325 mg Tablet] 325 mg PO DAILY 11/30/18 Furosemide [Lasix 20 mg Tablet] 40 mg PO BID 11/30/18 Gabapentin [Neurontin 300 mg Capsule] 300 mg PO Q8 01/06/19 Insulin Degludec [Tresiba Flextouch U-100] 40 unit SQ DAILY 01/06/19 Escitalopram Oxalate [Lexapro 10 mg Tablet] 10 mg PO QHS #30 tablet 03/01/19 Carvedilol [Coreg 12.5 mg Tablet] 12.5 mg PO Q12 04/13/19 Cholecalciferol (Vitamin D3) [Vitamin D3 1000 Unit Tablet] 2,000 unit PO DAILY 04/13/19 Dicyclomine HCl [Bentyl 10 mg Capsule] 10 mg PO ACHS 04/13/19 Famotidine [Pepcid] 20 mg PO BID 04/13/19 Hydralazine HCl 100 mg PO Q8 04/13/19 Mesalamine [Asacol Hd] 800 mg PO TID 04/13/19 Ipratropium/Albuterol Sulfate [Duoneb 3 ml Ampul] 3 ml NEB RTQ6HP PRN 30 Days #60 [email or web address] 04/20/19 Multivit,Tx with Iron,Minerals [Thera-M] 1 each PO DAILY 05/08/19 Olmesartan Medoxomil [Benicar] 20 mg PO DAILY 05/08/19 Sucralfate [Carafate 1 gm Tablet] 1 gm PO [facility] 05/08/19 Allergies/Adverse Reactions: pregabalin [From Lyrica] Allergy (Intermediate, Verified 04/04/19 09:00) RASH duloxetine Allergy (Verified 04/04/19 09:00) Review of Systems Constitutional: PRESENT: headache(s) Eyes: ABSENT: visual disturbances Ears: ABSENT: hearing changes Nose, Mouth, and Throat: PRESENT: headache(s) Cardiovascular: PRESENT: chest pain, dyspnea on exertion, edema Respiratory: PRESENT: dyspnea. ABSENT: cough, hemoptysis, sputum, other Gastrointestinal: PRESENT: abdominal pain - intermittenmt lower abdominal region, chronic.. ABSENT: constipation, diarrhea, hematemesis, hematochezia, nausea, vomiting Genitourinary: ABSENT: dysuria, hematuria Musculoskeletal: PRESENT: back pain - chronic, deformity - frelated to multiple joints involvement with arthritis Integumentary: ABSENT: rash, wounds Neurological: PRESENT: abnormal gait - ambulate with quad cane assistance. ABSENT: abnormal speech, confusion, dizziness, focal weakness, syncope Psychiatric: ABSENT: anxiety, depression, homidical ideation, suicidal ideation Hematologic/Lymphatic: ABSENT: easy bleeding, easy bruising, lymphadenopathy Allergic/Immunologic: ABSENT: seasonal rhinorrhea Physical Exam Vital Signs: Temp Pulse Resp BP Pulse Ox 97.9 F 84 18 176/79 H 96 05/08/19 15:11 05/08/19 15:11 05/08/19 15:11 05/08/19 15:11 05/08/19 15:11 Intake & Output 05/07/19 05/08/19 05/09/19 06:59 06:59 06:59 Weight 81.647 kg General appearance: PRESENT: morbidly obese Head exam: PRESENT: atraumatic, normocephalic Eye exam: PRESENT: conjunctiva pink, EOMI, PERRLA. ABSENT: scleral icterus Ear exam: PRESENT: normal external ear exam Mouth exam: PRESENT: moist, tongue midline Teeth exam: PRESENT: poor dentation Neck exam: PRESENT: full ROM. ABSENT: carotid bruit, JVD, lymphadenopathy, thyromegaly Respiratory exam: PRESENT: decreased breath sounds - at lung bases, rhonchi, wheezes Cardiovascular exam: PRESENT: RRR. ABSENT: diastolic murmur, rubs, systolic murmur Vascular exam: ABSENT: pallor GI/Abdominal exam: PRESENT: normal bowel sounds, soft, tenderness - to plapation over lower quadrants. ABSENT: distended, guarding, mass, organolmegaly, rebound Rectal exam: PRESENT: deferred Extremities exam: PRESENT: pedal edema - bilateral to below knee levels Musculoskeletal exam: PRESENT: deformity, tenderness - to paslpation Neurological exam: PRESENT: alert, awake, oriented to person, oriented to place, oriented to time, oriented to situation, CN II-XII grossly intact. ABSENT: motor sensory deficit Psychiatric exam: PRESENT: anxious Skin exam: PRESENT: dry, warm, other - nonhealing diabetic left foot heel ulcer Results Laboratory Results: 05/08/19 08:10 05/08/19 08:10 05/08/19 05/08/19 05/08/19 08:10 08:10 08:25 WBC 5.5 RBC 3.57 L Hgb 10.9 L Hct 33.9 L MCV 95 MCH 30.7 MCHC 32.2 RDW 17.3 H Plt Count 220 Seg Neutrophils % 66.8 Carbonic Acid 1.38 H HCO3/H2CO3 Ratio 18:1 ABG pH 7.37 ABG pCO2 45.7 H ABG pO2 56.8 L ABG HCO3 26.0 H ABG O2 Saturation 88.7 L ABG Base Excess 0.5 FiO2 ROOM AIR Sodium 142.3 Potassium 4.3 Chloride 108 H Carbon Dioxide 24 Anion Gap 10 BUN 7 Creatinine 0.48 L Est GFR ( Amer) > 60 Glucose 128 H Calcium 9.8 Total Bilirubin 1.1 AST 25 Alkaline Phosphatase 311 H Total Protein 9.2 H Albumin 4.0 Urine Color Urine Appearance Urine pH Ur Specific [place] Urine Protein Urine Glucose (UA) Urine Ketones Urine Blood Urine Nitrite Ur Leukocyte Esterase Urine WBC (Auto) Urine RBC (Auto) 05/08/19 11:08 WBC RBC Hgb Hct MCV MCH MCHC RDW Plt Count Seg Neutrophils % Carbonic Acid HCO3/H2CO3 Ratio ABG pH ABG pCO2 ABG pO2 ABG HCO3 ABG O2 Saturation ABG Base Excess FiO2 Sodium Potassium Chloride Carbon Dioxide Anion Gap BUN Creatinine Est GFR ( Amer) Glucose Calcium Total Bilirubin AST Alkaline Phosphatase Total Protein Albumin Urine Color YELLOW Urine Appearance CLEAR Urine pH 7.0 Ur Specific [place] 1.011 Urine Protein >=500 H Urine Glucose (UA) NEGATIVE Urine Ketones NEGATIVE Urine Blood NEGATIVE Urine Nitrite NEGATIVE Ur Leukocyte Esterase NEGATIVE Urine WBC (Auto) 3 Urine RBC (Auto) 1 05/08/19 05/08/19 05/08/19 08:10 08:10 08:10 Creatine Kinase 27 L CK-MB (CK-2) 0.55 Troponin I < 0.012 NT-Pro-B Natriuret Pep 9040 H Impressions: Chest X-Ray 05/08/19 00:00 IMPRESSION: Moderate pulmonary edema. Diffuse increased interstitial prominence may represent superimposed infection/inflammatory process. Assessment & Plan - Diagnosis (1) Hypoxemia requiring supplemental oxygen Is this a current diagnosis for this admission?: Yes Plan: See admitting attending physician orders for details about care plan. (2) Pulmonary vascular congestion Is this a current diagnosis for this admission?: Yes Plan: See admitting attending physician orders for details about care plan. (3) Acute on chronic combined systolic and diastolic CHF, NYHA class 3 Is this a current diagnosis for this admission?: Yes Plan: See admitting attending physician orders for details about care plan. (4) Hypertension Qualifiers: Hypertension type: essential hypertension Qualified Code(s): I10 - Essential (primary) hypertension Is this a current diagnosis for this admission?: Yes Plan: See admitting attending physician orders for details about care plan. (5) COPD (chronic obstructive pulmonary disease) Qualifiers: COPD type: unspecified COPD Qualified Code(s): J44.9 - Chronic obstructive pulmonary disease, unspecified Is this a current diagnosis for this admission?: Yes Plan: See admitting attending physician orders for details about care plan. (6) Diabetes mellitus type 2 in obese Is this a current diagnosis for this admission?: Yes Plan: See admitting attending physician orders for details about care plan. (7) Diabetic ulcer of left foot associated with type 2 diabetes mellitus Qualifiers: Diabetic foot ulcer location: heel Non-pressure ulcer stage: unspecified non-pressure ulcer stage Qualified Code(s): E11.621 - Type 2 diabetes mellitus with foot ulcer; L97.429 - Non-pressure chronic ulcer of left heel and midfoot with unspecified severity Is this a current diagnosis for this admission?: Yes Plan: See admitting attending physician orders for details about care plan. (8) HLD (hyperlipidemia) Qualifiers: Hyperlipidemia type: pure hypercholesterolemia Qualified Code(s): E78.00 - Pure hypercholesterolemia, unspecified Is this a current diagnosis for this admission?: Yes Plan: See admitting attending physician orders for details about care plan. (9) Hx of stroke without residual deficits Is this a current diagnosis for this admission?: Yes Plan: See admitting attending physician orders for details about care plan. (10) Abdominal pain, chronic, bilateral lower quadrant Is this a current diagnosis for this admission?: Yes Plan: See admitting attending physician orders for details about care plan. (11) Obesity (BMI 30-39.9) Is this a current diagnosis for this admission?: Yes Plan: See admitting attending physician orders for details about care plan. - Time Time Spent: 50 to 70 Minutes Medications reviewed and adjusted accordingly: Yes Anticipated discharge: Home with Homehealth Within: Other - Inpatient Certification Based on my medical assessment, after consideration of the patient's com orbidities, presenting symptoms, or acuity I expect that the services needed warrant INPATIENT care.: Yes I certify that my determination is in accordance with my understanding of Medicare's requirements for reasonable and necessary INPATIENT services [42 CFR 412.3e].: Yes Medical Necessity: Significant Comorbidiites Make Outpatient Treatment Too Risky, Need Close Monitoring Due to Risk of Patient Decompensation, Need For Continuous Telemetry Monitoring, Need for Nebulizer Therapy and Monitoring of Response, Need for Pain Control, Risk of Complication if Not Cared For in Hospital, Risk of Diagnosis Which Will Require Inpatient Eval/Care/Monitoring 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
--- NOTE | 2019-05-09 23:01 | PDOC PROGRESS REPORT ---
Subjective Progress Note for:: 05/09/19 Subjective:: Patient reported improvement in her breathing. She remain off supplemental oxygen presently. No chest pain. She reported intermittent abdominal pain. No nausea or vomiting. No fever or chills. Reason For Visit: CONGESTIVE HEART FAILURE Physical Exam Vital Signs: Temp Pulse Resp BP Pulse Ox 98.7 F 62 18 107/54 L 91 L 05/09/19 19:20 05/09/19 19:20 05/09/19 19:20 05/09/19 19:20 05/09/19 19:20 Intake & Output 05/08/19 05/09/19 05/10/19 06:59 06:59 06:59 Intake Total 1394 Output Total 2800 Balance -2800 1394 Weight 81.647 kg 83.4 kg General appearance: PRESENT: obese Head exam: PRESENT: atraumatic, normocephalic Eye exam: PRESENT: conjunctiva pink. ABSENT: scleral icterus Respiratory exam: PRESENT: clear to auscultation lele, decreased breath sounds Cardiovascular exam: PRESENT: RRR. ABSENT: diastolic murmur, rubs, systolic murmur Vascular exam: ABSENT: pallor GI/Abdominal exam: PRESENT: normal bowel sounds, soft, tenderness - nonspecific lower quadraant tenderness to palpation. ABSENT: distended, guarding, mass, organolmegaly, rebound Extremities exam: PRESENT: pedal edema - improving Musculoskeletal exam: PRESENT: deformity - related to multiple joints involvement with arthriis Neurological exam: PRESENT: alert, awake, oriented to person, oriented to place, oriented to time, oriented to situation, CN II-XII grossly intact. ABSENT: motor sensory deficit Psychiatric exam: PRESENT: appropriate affect, normal mood. ABSENT: homicidal ideation, suicidal ideation Skin exam: PRESENT: dry, warm, other - left foot diabetic ulcer Results Laboratory Results: 05/08/19 08:10 05/08/19 08:10 05/08/19 05/08/19 05/08/19 08:10 08:10 08:10 Creatine Kinase 27 L CK-MB (CK-2) 0.55 Troponin I < 0.012 NT-Pro-B Natriuret Pep 9040 H Impressions: Chest X-Ray 05/08/19 00:00 IMPRESSION: Moderate pulmonary edema. Diffuse increased interstitial prominence may represent superimposed infection/inflammatory process. Assessment & Plan - Diagnosis (1) Hypoxemia requiring supplemental oxygen Is this a current diagnosis for this admission?: Yes Plan: Continue current medical management. Patient is not demonstrating any need for supplemental oxygen. (2) Pulmonary vascular congestion Is this a current diagnosis for this admission?: Yes Plan: Continue current medical management. (3) Acute on chronic combined systolic and diastolic CHF, NYHA class 3 Is this a current diagnosis for this admission?: Yes Plan: Continue current medical management. (4) HTN (hypertension) Qualifiers: Hypertension type: essential hypertension Is this a current diagnosis for this admission?: Yes Plan: Continue current medical management. (5) COPD (chronic obstructive pulmonary disease) Qualifiers: COPD type: unspecified COPD Qualified Code(s): J44.9 - Chronic obstructive pulmonary disease, unspecified Is this a current diagnosis for this admission?: Yes Plan: Continue current medical management. (6) Diabetes mellitus type 2 in obese Is this a current diagnosis for this admission?: Yes Plan: Continue current medical management. (7) Diabetic ulcer of left foot associated with type 2 diabetes mellitus Qualifiers: Diabetic foot ulcer location: heel Non-pressure ulcer stage: unspecified non-pressure ulcer stage Qualified Code(s): E11.621 - Type 2 diabetes mellitus with foot ulcer; L97.429 - Non-pressure chronic ulcer of left heel and midfoot with unspecified severity Is this a current diagnosis for this admission?: Yes Plan: Continue current medical management. (8) Chronic stable angina Is this a current diagnosis for this admission?: Yes Plan: Continue current medical management. (9) Hyperlipidemia Qualifiers: Hyperlipidemia type: unspecified Qualified Code(s): E78.5 - Hyperlipidemia, unspecified Is this a current diagnosis for this admission?: Yes Plan: Continue current medical management. (10) Hx of stroke without residual deficits Is this a current diagnosis for this admission?: Yes Plan: Continue current medical management. (11) Abdominal pain, chronic, bilateral lower quadrant Is this a current diagnosis for this admission?: Yes Plan: Continue current medical management. (12) Obesity (BMI 30-39.9) Is this a current diagnosis for this admission?: Yes Plan: Continue current medical management. - Time Time Spent with patient: 25-34 minutes Level of Care: IMCU Medications reviewed and adjusted accordingly: Yes Anticipated discharge: Home with Homehealth Within: Other - Inpatient Certification Based on my medical assessment, after consideration of the patient's comorbidities, presenting symptoms, or acuity I expect that the services needed warrant INPATIENT care.: Yes I certify that my determination is in accordance with my understanding of Medicare's requirements for reasonable and necessary INPATIENT services [42 CFR 412.3e].: Yes Medical Necessity: Significant Comorbidiites Make Outpatient Treatment Too Risky, Need Close Monitoring Due to Risk of Patient Decompensation, Need For Continuous Telemetry Monitoring, Need for Nebulizer Therapy and Monitoring of Response, Risk of Complication if Not Cared For in Hospital, Risk of Diagnosis Which Will Require Inpatient Eval/Care/Monitoring 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
[2019-05-10] MEDS: HYDROCODONE/ACETAMINOPHEN 7.5-325 MG TABLET PO PRN (04:04)
[2019-05-10 05:28] LABS: ABSOLUTE EOSINOPHILS # (AUTO) 0.1 10^3/uL (0.0-0.6); ABSOLUTE LYMPHOCYTES (AUTO) 1.5 10^3/uL (0.5-4.7); ABSOLUTE MONOCYTES (AUTO) 0.7 10^3/uL (0.1-1.4); ABSOLUTE NEUT (AUTO) 3.4 10^3/uL (1.7-8.2); BASOPHILS % (AUTO) 0.6 % (0-2); EOSINOPHILS % (AUTO) 1.7 % (0-6); HEMATOCRIT 28.7 % (36.0-47.0); HEMOGLOBIN 9.6 g/dL (12.0-15.5); LYMPHOCYTES % (AUTO) 26.8 % (13-45); MEAN CORPUSCULAR HEMOGLOBIN 31.3 pg (27.0-33.4); MEAN CORPUSCULAR HGB CONC 33.5 g/dL (32.0-36.0); MEAN CORPUSCULAR VOLUME 93 fl (80-97); MONOCYTES % (AUTO) 11.9 % (3-13); PLATELET COUNT 184 10^3/uL (150-450); RED BLOOD COUNT 3.08 10^6/uL (3.72-5.28); RED CELL DISTRIBUTION WIDTH 17.3 % (11.5-14.0); TOTAL CELLS COUNTED % (AUTO) 100 %; WHITE BLOOD COUNT 5.7 10^3/uL (4.0-10.5)
[2019-05-10 05:39] LABS: ALBUMIN 3.1 g/dL (3.5-5.0); ALKALINE PHOSPHATASE 224 U/L (38-126); ANION GAP 5 (5-19); ASPARTATE AMINO TRANSFERASE 18 U/L (14-36); BILIRUBIN,DIRECT 0.2 mg/dL (0.0-0.4); BILIRUBIN,TOTAL 0.6 mg/dL (0.2-1.3); BLOOD UREA NITROGEN 20 mg/dL (7-20); CALCIUM 8.7 mg/dL (8.4-10.2); CARBON DIOXIDE 28 mmol/L (22-30); CHLORIDE 106 mmol/L (98-107); GLUCOSE 101 mg/dL (75-110); POTASSIUM 4.6 mmol/L (3.6-5.0); TOTAL PROTEIN 7.2 g/dL (6.3-8.2)
[2019-05-10] MEDS: HYDRALAZINE HCL 50 MG TABLET PO SCH ×2 (06:19→13:50)
[2019-05-10] MEDS: GABAPENTIN 300 MG CAPSULE PO SCH ×2 (06:19→13:50)
[2019-05-10] MEDS: MESALAMINE 400 MG CAPSULE.DR PO SCH ×2 (06:19→13:50)
[2019-05-10] MEDS: INSULIN LISPRO 100 UNIT/ML 3 ML VIAL SUBCUT SCH ×2 (07:54→11:54)
[2019-05-10] MEDS: DICYCLOMINE HCL 10 MG CAPSULE PO SCH ×2 (07:57→11:54)
[2019-05-10] MEDS: SUCRALFATE 1 GM TABLET PO SCH ×2 (07:57→11:54)
[2019-05-10] MEDS: FUROSEMIDE INJ/PF 40 MG/4 ML SDV IV SCH (10:02)
[2019-05-10] MEDS: CARVEDILOL 12.5 MG TABLET PO SCH (10:02)
[2019-05-10] MEDS: ASCORBIC ACID 500 MG TABLET PO SCH (10:03)
[2019-05-10] MEDS: FERROUS SULFATE 325 MG TABLET PO SCH (10:03)
[2019-05-10] MEDS: AMLODIPINE BESYLATE 10 MG TABLET PO SCH (10:03)
[2019-05-10] MEDS: FAMOTIDINE 20 MG TABLET PO SCH (10:03)
[2019-05-10] MEDS: MULTIVITAMIN TABLET PO SCH (10:03)
[2019-05-10] MEDS: CHOLECALCIFEROL (D3) 1,000 UNIT (25 MCG) TABLET PO SCH (10:03)
[2019-05-10] MEDS: LOSARTAN POTASSIUM 50 MG TABLET PO SCH (10:03)
[2019-05-10 15:28] VITALS: BP 174/86
--- NOTE | 2019-05-10 15:33 | PDOC DISCHARGE SUMMARY ---
Impression - Admit/DC Date/PCP Admission Date/Primary Care Provider: 05/08/19 13:02 RENAN LAZAR Discharge Date: 05/10/19 - Discharge Diagnosis (1) Hypoxemia requiring supplemental oxygen Is this a current diagnosis for this admission?: Yes (2) Pulmonary vascular congestion Is this a current diagnosis for this admission?: Yes (3) Acute on chronic combined systolic and diastolic CHF, NYHA class 3 Is this a current diagnosis for this admission?: Yes (4) HTN (hypertension) Is this a current diagnosis for this admission?: Yes (5) COPD (chronic obstructive pulmonary disease) Is this a current diagnosis for this admission?: Yes (6) Diabetes mellitus type 2 in obese Is this a current diagnosis for this admission?: Yes (7) Diabetic ulcer of left foot associated with type 2 diabetes mellitus Is this a current diagnosis for this admission?: Yes (8) Chronic stable angina Is this a current diagnosis for this admission?: Yes (9) Hyperlipidemia Is this a current diagnosis for this admission?: Yes (10) Hx of stroke without residual deficits Is this a current diagnosis for this admission?: Yes (11) Abdominal pain, chronic, bilateral lower quadrant Is this a current diagnosis for this admission?: Yes (12) Obesity (BMI 30-39.9) Is this a current diagnosis for this admission?: Yes - Assessment Summary: Patient was admitted following repeated presentation to the ED with complain about shortness of breath and demand for home oxygen due to presenting hypoxemia with pulmonary congestion. Her presenting symptoms have satisfactorily resolved with administration of several doses of IV Lasix. Patient reported compliance with her medication administration and dietary and fluid restriction. Her presentation is very suggestive otherwise. She has been without supplemental oxygen since admission. She will be discharge home to day and follow up in the office as instructed upon discharge. - Additional Information Resuscitation Status: Full Code Discharge Diet: Cardiac, Diabetic Discharge Activity: Activity As Tolerated, Balance Activity w/Rest, Weigh Daily Referrals: RENAN LAZAR MD [Primary Care Provider] - 05/16/19 10:00 am Home Medications: Amlodipine Besylate [Norvasc 10 mg Tablet] 10 mg PO DAILY 11/30/18 Ascorbic Acid [Vitamin C 500 mg Tablet] 500 mg PO DAILY 11/30/18 Atorvastatin Calcium [Lipitor 20 mg Tablet] 20 mg PO QHS 11/30/18 Docusate Sodium [Colace 100 mg Capsule] 100 mg PO BIDP PRN 11/30/18 Ferrous Sulfate [Feosol 325 mg Tablet] 325 mg PO DAILY 11/30/18 Furosemide [Lasix 20 mg Tablet] 40 mg PO BID 11/30/18 Gabapentin [Neurontin 300 mg Capsule] 300 mg PO Q8 01/06/19 Insulin Degludec [Tresiba Flextouch U-100] 40 unit SQ DAILY 01/06/19 Escitalopram Oxalate [Lexapro 10 mg Tablet] 10 mg PO QHS #30 tablet 03/01/19 Carvedilol [Coreg 12.5 mg Tablet] 12.5 mg PO Q12 04/13/19 Cholecalciferol (Vitamin D3) [Vitamin D3 1000 Unit Tablet] 2,000 unit PO DAILY 04/13/19 Dicyclomine HCl [Bentyl 10 mg Capsule] 10 mg PO ACHS 04/13/19 Famotidine [Pepcid] 20 mg PO BID 04/13/19 Hydralazine HCl 100 mg PO Q8 04/13/19 Mesalamine [Asacol Hd] 800 mg PO TID 04/13/19 Ipratropium/Albuterol Sulfate [Duoneb 3 ml Ampul] 3 ml NEB RTQ6HP PRN 30 Days #60 vial.neb 04/20/19 Multivit,Tx with Iron,Minerals [Thera-M] 1 each PO DAILY 05/08/19 Olmesartan Medoxomil [Benicar] 20 mg PO DAILY 05/08/19 Sucralfate [Carafate 1 gm Tablet] 1 gm PO ACHS 05/08/19 History of Present Illiness History of Present Illness: LEEANN FUNEZ is a 63 year old female patient known to my practice who repeatedly present to the ED with complain about difficulty with breathing. She was recently discharged from this hospital but had subsequently presented to the ED demanding for oxygen at home. She recently had hemorrhagic stroke with urine positive drug screen for cocaine and severely elevated blood pressure upon presentation with the stroke symptoms. She was evacuated to [facility] and adequately treated. Subsequently she has had headache which was discussed with her neurology team at [facility] and she was made aware that her headache is consequence of her hemorrhagic stroke and will be recurring for a long time. She reported associated chest pain which she described as heaviness discomfort in her chest. No palpitation. There is chronic leg swelling. She claimed compliance with her prescribed medication and fluid restrictions. She denied any focal weakness. She denied any fever or chills. No coughing or exposure to acutely ill person or family members. Her initial ED evaluation was significant chest X ray that revealed pulmonary congestion and documented hypoxemia. She demonstrated significant improvement with administration of IV Furosemide. She was advised hospitalization for further evaluation and management. Her morbidities are as listed below. Hospital Course Hospital Course: Patient was admitted following repeated presentation to the ED with complain about shortness of breath and demand for home oxygen due to presenting hypoxemia with pulmonary congestion. Her presenting symptoms have satisfactorily resolved with administration of several doses of IV Lasix. Patient reported compliance with her medication administration and dietary and fluid restriction. Her presentation is very suggestive otherwise. She has been without supplemental oxygen since admission. She will be discharge home to day and follow up in the office as instructed upon discharge. Physical Exam Vital Signs: Temp Pulse Resp BP Pulse Ox 97.5 F 59 L 17 111/67 93 05/10/19 11:11 05/10/19 11:11 05/10/19 11:11 05/10/19 11:11 05/10/19 11:11 Intake & Output 05/09/19 05/10/19 05/11/19 06:59 06:59 06:59 Intake Total 1914 995 Output Total 2800 Balance -2800 1914 995 Weight 83.4 kg General appearance: PRESENT: obese Head exam: PRESENT: atraumatic, normocephalic Eye exam: PRESENT: conjunctiva pink. ABSENT: pallor, scleral icterus Respiratory exam: PRESENT: clear to auscultation lele, decreased breath sounds Cardiovascular exam: PRESENT: RRR, +S1, +S2. ABSENT: diastolic murmur, rubs, systolic murmur GI/Abdominal exam: PRESENT: normal bowel sounds, soft. ABSENT: distended, tenderness, guarding, mass, organomegaly, rebound Extremities exam: PRESENT: pedal edema - improving Musculoskeletal exam: PRESENT: deformity - related to multiple joints involvement with arthritis Neurological exam: PRESENT: alert, awake, oriented to person, oriented to place, oriented to time, oriented to situation, CN II-XII grossly intact. ABSENT: motor sensory deficit Psychiatric exam: PRESENT: appropriate affect, normal mood. ABSENT: homicidal ideation, suicidal ideation Skin exam: PRESENT: dry, warm, other - left foot diabetic ulcer Results Laboratory Results: WBC 5.7 10^3/uL (4.0-10.5) 05/10/19 05:08 RBC 3.08 10^6/uL (3.72-5.28) L 05/10/19 05:08 Hgb 9.6 g/dL (12.0-15.5) L 05/10/19 05:08 Hct 28.7 % (36.0-47.0) L 05/10/19 05:08 MCV 93 fl (80-97) 05/10/19 05:08 MCH 31.3 pg (27.0-33.4) 05/10/19 05:08 MCHC 33.5 g/dL (32.0-36.0) 05/10/19 05:08 RDW 17.3 % (11.5-14.0) H 05/10/19 05:08 Plt Count 184 10^3/uL (150-450) 05/10/19 05:08 Lymph % (Auto) 26.8 % (13-45) 05/10/19 05:08 Cassia % (Auto) 11.9 % (3-13) 05/10/19 05:08 Eos % (Auto) 1.7 % (0-6) 05/10/19 05:08 Baso % (Auto) 0.6 % (0-2) 05/10/19 05:08 Absolute Neuts (auto) 3.4 10^3/uL (1.7-8.2) 05/10/19 05:08 Absolute Lymphs (auto) 1.5 10^3/uL (0.5-4.7) 05/10/19 05:08 Absolute Monos (auto) 0.7 10^3/uL (0.1-1.4) 05/10/19 05:08 Absolute Eos (auto) 0.1 10^3/uL (0.0-0.6) 05/10/19 05:08 Absolute Basos (auto) 0.0 10^3/uL (0.0-0.2) 05/10/19 05:08 Seg Neutrophils % 59.0 % (42-78) 05/10/19 05:08 Carbonic Acid 1.38 mmol/L (1.05-1.35) H 05/08/19 08:25 HCO3/H2CO3 Ratio 18:1 05/08/19 08:25 ABG pH 7.37 (7.35-7.45) 05/08/19 08:25 ABG pCO2 45.7 mmHg (35-45) H 05/08/19 08:25 ABG pO2 56.8 mmHg (80-100) L 05/08/19 08:25 ABG HCO3 26.0 mmol/L (20-24) H 05/08/19 08:25 ABG Total CO2 27.4 mmol/L (21-25) H 05/08/19 08:25 ABG O2 Saturation 88.7 % (94-98) L 05/08/19 08:25 ABG Base Excess 0.5 mmol/L 05/08/19 08:25 FiO2 ROOM AIR 05/08/19 08:25 Sodium 139.4 mmol/L (137-145) 05/10/19 05:08 Potassium 4.6 mmol/L (3.6-5.0) 05/10/19 05:08 Chloride 106 mmol/L (98-107) 05/10/19 05:08 Carbon Dioxide 28 mmol/L (22-30) 05/10/19 05:08 Anion Gap 5 (5-19) 05/10/19 05:08 BUN 20 mg/dL (7-20) 05/10/19 05:08 Creatinine 1.53 mg/dL (0.52-1.25) H 05/10/19 05:08 Est GFR ( Amer) 41 (>60) L 05/10/19 05:08 Est GFR (MDRD) Non-Af 34 (>60) L 05/10/19 05:08 Glucose 101 mg/dL (75-110) 05/10/19 05:08 POC Glucose 121 mg/dL (70-110) H 05/10/19 11:13 Calcium 8.7 mg/dL (8.4-10.2) 05/10/19 05:08 Magnesium 1.9 mg/dL (1.6-2.3) 05/10/19 05:08 Total Bilirubin 0.6 mg/dL (0.2-1.3) 05/10/19 05:08 Direct Bilirubin 0.2 mg/dL (0.0-0.4) 05/10/19 05:08 Neonat Total Bilirubin Not Reportable 05/10/19 05:08 Neonat Direct Bilirubin Not Reportable 05/10/19 05:08 Neonat Indirect Bili Not Reportable 05/10/19 05:08 AST 18 U/L (14-36) 05/10/19 05:08 ALT 9 U/L (<35) 05/10/19 05:08 Alkaline Phosphatase 224 U/L (38-126) H 05/10/19 05:08 Creatine Kinase 27 U/L (30-135) L 05/08/19 08:10 CK-MB (CK-2) 0.55 ng/mL (<4.55) 05/08/19 08:10 Troponin I < 0.012 ng/mL 05/08/19 08:10 NT-Pro-B Natriuret Pep 9040 pg/mL (<125) H 05/08/19 08:10 Total Protein 7.2 g/dL (6.3-8.2) 05/10/19 05:08 Albumin 3.1 g/dL (3.5-5.0) L 05/10/19 05:08 Urine Color YELLOW 05/08/19 11:08 Urine Appearance CLEAR 05/08/19 11:08 Urine pH 7.0 (5.0-9.0) 05/08/19 11:08 Ur Specific [place] 1.011 05/08/19 11:08 Urine Protein >=500 mg/dL (NEGATIVE) H 05/08/19 11:08 Urine Glucose (UA) NEGATIVE mg/dL (NEGATIVE) 05/08/19 11:08 Urine Ketones NEGATIVE mg/dL (NEGATIVE) 05/08/19 11:08 Urine Blood NEGATIVE (NEGATIVE) 05/08/19 11:08 Urine Nitrite NEGATIVE (NEGATIVE) 05/08/19 11:08 Urine Bilirubin NEGATIVE (NEGATIVE) 05/08/19 11:08 Urine Urobilinogen 2.0 mg/dL (<2.0) H 05/08/19 11:08 Ur Leukocyte Esterase NEGATIVE (NEGATIVE) 05/08/19 11:08 Urine WBC (Auto) 3 /HPF 05/08/19 11:08 Urine RBC (Auto) 1 /HPF 05/08/19 11:08 Squamous Epi Cells Auto 5 /HPF 05/08/19 11:08 Urine Mucus (Auto) RARE /LPF 05/08/19 11:08 Urine Ascorbic Acid NEGATIVE (NEGATIVE) 05/08/19 11:08 05/08/19 05/08/19 08:10 08:10 CK-MB (CK-2) 0.55 Troponin I < 0.012 NT-Pro-B Natriuret Pep 9040 H Impressions: Chest X-Ray 05/08/19 00:00 IMPRESSION: Moderate pulmonary edema. Diffuse increased interstitial prominence may represent superimposed infection/inflammatory process. Plan Health Concerns: High risk for readmission due to noncompliance with medication, salt, and fluid restriction. Plan of Treatment: Enrollment in community home health agency Congestive Heart Failure program. Goals: Reduce readmission risk and encourage treatment compliance. Stroke Is this a Stroke Patient?: No Acute Heart Failure - Is this a Heart Failure Patient?: Yes Documentation of LVEF assessment?: No, Document reason - Completed 08/2018 LVEF was 60%. LVEF < 40%?: No- if no continue to question #3 3. Anticoagulant therapy for permanect/persistent/paraoxysmal Afib or Aflutter: N/A Reason(s) not discharged on anticoagulant therapy for permanect/persistent/paraoxysmal Afib or Aflutter: Other - not indicated Follow-up Appointment scheduled within 7 days?: Yes
== END 2019-05-10 15:52 | disposition home health service (06) | DRG 292 ==
LOC: ER 02:39 → EH 13:02 → 3S 14:37
PROVIDERS: ADMIT Internal Medicine Geriatric Medicine; ATTEND Internal Medicine Geriatric Medicine
DX: I11.0 Hypertensive heart disease with heart failure (principal); L97.429 Non-pressure chronic ulcer of left heel and midfoot with unspecified severity; I50.43 Acute on chronic combined systolic (congestive) and diastolic (congestive) heart failure; J44.9 Chronic obstructive pulmonary disease, unspecified; E11.621 Type 2 diabetes mellitus with foot ulcer; E78.5 Hyperlipidemia, unspecified; E11.51 Type 2 diabetes mellitus with diabetic peripheral angiopathy without gangrene; E66.01 Morbid (severe) obesity due to excess calories; R09.02 Hypoxemia; E78.00 Pure hypercholesterolemia, unspecified; I25.118 Atherosclerotic heart disease of native coronary artery with other forms of angina pectoris; I25.2 Old myocardial infarction; Z86.73 Personal history of transient ischemic attack (TIA), and cerebral infarction without residual deficits; Z79.899 Other long term (current) drug therapy; Z87.891 Personal history of nicotine dependence; Z95.5 Presence of coronary angioplasty implant and graft; Z79.4 Long term (current) use of insulin; Z88.6 Allergy status to analgesic agent
CPT/HCPCS: 36415; 71046; 80053; 81001; 82550; 82553; 82803; 82962; 83735; 83880; 84484; 85025; 93005; 93010; 96374; 99291; J1940; J3490

== ENCOUNTER 2019-07-01 00:06 | Inpatient (IN) | payer MEDICARE, MEDICAID ==
[2019-07-01 01:40] LABS: ABSOLUTE BASOPHILS # (AUTO) 0.1 10^3/uL (0.0-0.2); ABSOLUTE EOSINOPHILS # (AUTO) 0.1 10^3/uL (0.0-0.6); ABSOLUTE LYMPHOCYTES (AUTO) 0.7 10^3/uL (0.5-4.7); ABSOLUTE MONOCYTES (AUTO) 0.8 10^3/uL (0.1-1.4); ABSOLUTE NEUT (AUTO) 8.4 10^3/uL (1.7-8.2); BASOPHILS % (AUTO) 0.8 % (0-2); EOSINOPHILS % (AUTO) 0.7 % (0-6); HEMATOCRIT 26.9 % (36.0-47.0); HEMOGLOBIN 8.8 g/dL (12.0-15.5); LYMPHOCYTES % (AUTO) 6.9 % (13-45); MEAN CORPUSCULAR HEMOGLOBIN 31.1 pg (27.0-33.4); MEAN CORPUSCULAR HGB CONC 32.8 g/dL (32.0-36.0); MEAN CORPUSCULAR VOLUME 95 fl (80-97); PLATELET COUNT 221 10^3/uL (150-450); RED BLOOD COUNT 2.84 10^6/uL (3.72-5.28); RED CELL DISTRIBUTION WIDTH 17.7 % (11.5-14.0); SEGMENTED NEUTROPHILS % (AUTO) 83.6 % (42-78); TOTAL CELLS COUNTED % (AUTO) 100 %
[2019-07-01 01:42] LABS: INTERNATIONAL RATION (INR) 1.53; PROTHROMBIN TIME 18.6 SEC (11.4-15.4)
[2019-07-01 01:43] LABS: PARTIAL THROMBOPLASTIN TIME 32.2 SEC (23.5-35.8)
[2019-07-01 01:56] LABS: TROPONIN I 0.014 ng/mL
--- NOTE | 2019-07-01 02:07 | RADIOLOGY REPORT (SQ) ---
EXAM DESCRIPTION: CT CERVICAL SPINE WITHOUT IV CONTRAST COMPLETED DATE/TME: 07/01/2019 01:02 CLINICAL HISTORY: 64 years Female, trauma Comparison: CR chest May 08, 2019 Technique: No contrast. Coronal and sagittal reformat. This exam was performed according to our departmental dose-optimization program, which includes automated exposure control, adjustment of the mA and/or kV according to patient size and/or use of iterative reconstruction technique.[facility]: Dose Right [facility]: CareDose [facility]: Dose Right [facility]: Teradose 4D [facility]: GdeSlon LIMITATIONS: Motion artifact. Findings: Small disc bulges between the C5 and C7 levels. Small patchy opacity-atelectasis partially imaged at the right lung apex. Similar pattern radiographs from April 2019. Atherosclerotic vascular disease. Normal alignment. Normal curvature. No fracture. Normal vertebral heights. No significant bony spinal or foraminal canal compromise. Partially imaged nuchal soft tissues, inferior cranium, and upper thorax appear otherwise grossly intact. IMPRESSION: 1. No acute findings of the cervical spine. Limitation. 2. Small patchy opacity-atelectasis partially imaged at the right lung apex. Similar pattern radiographs from April 2019. Recommend CR/CT surveillance including at 7-12 weeks following initiation of any clinically warranted therapy.
[2019-07-01 02:15] LABS: BLOOD UREA NITROGEN 72 mg/dL (7-20); CALCIUM 8.6 mg/dL (8.4-10.2); GLUCOSE 124 mg/dL (75-110)
[2019-07-01 02:16] LABS: ALBUMIN 3.1 g/dL (3.5-5.0); ALKALINE PHOSPHATASE 246 U/L (38-126); ANION GAP 13 (5-19); ASPARTATE AMINO TRANSFERASE 17 U/L (14-36); CARBON DIOXIDE 17 mmol/L (22-30); CHLORIDE 109 mmol/L (98-107); POTASSIUM 5.5 mmol/L (3.6-5.0)
[2019-07-01 02:17] LABS: BILIRUBIN,DIRECT 0.4 mg/dL (0.0-0.4); BILIRUBIN,TOTAL 0.7 mg/dL (0.2-1.3); PHOSPHORUS 7.8 mg/dL (2.5-4.5); TOTAL PROTEIN 7.6 g/dL (6.3-8.2)
[2019-07-01 02:18] LABS: ALCOHOL < 10 mg/dL (NONE DETECTED)
--- NOTE | 2019-07-01 02:21 | RADIOLOGY REPORT (SQ) ---
EXAM DESCRIPTION: CT HEAD WITHOUT IV CONTRAST COMPLETED DATE/TME: 07/01/2019 01:02 CLINICAL HISTORY: 64 years Female, trauma COMPARISON: 04/12/19 TECHNIQUE: No contrast. Coronal and sagittal reformat. This exam was performed according to our departmental dose-optimization program, which includes automated exposure control, adjustment of the mA and/or kV according to patient size and/or use of iterative reconstruction technique. Limitation: Motion. FINDINGS: Small high attenuation opacity at the right temporal cortex may indicate small hemorrhagic contusion/ischemia or small subarachnoid hemorrhage in an area of prior insult shown on exam dated March 30, 2019. Moderate encephalomalacia-infarct of the right temporal lobe. Lacunar infarcts of the right basal ganglia. No mass, mass effect, or midline shift. Atherosclerosis. Small inferior sphenoid mucosal thickening. Small mucus of the inferior right frontal sinus. Brain and extra-axial structures appear otherwise intact. IMPRESSION: Small high attenuation at the right temporal cortex may indicate small hemorrhagic contusion/ischemia, small subarachnoid hemorrhage, or small calcified sequela in an area of prior insult shown on exam dated March 30, 2019. Moderate encephalomalacia-infarct of the right temporal lobe. Lacunar infarcts of the right basal ganglia. Recommend CT/MR surveillance.
--- NOTE | 2019-07-01 02:39 | RADIOLOGY REPORT (SQ) ---
CLINICAL INDICATION: trauma. TECHNIQUE: A single portable AP view was obtained of the chest at 0204 hours. COMPARISON: April 23, 2019. FINDINGS: The cardiomediastinal silhouette is enlarged but stable with postsurgical change. The lungs demonstrate chronic change. Mild progressive atelectasis left lung base.. No significant pleural fluid. No pneumothorax. The visualized bones are unremarkable. IMPRESSION: No evidence of active intrathoracic disease. If there is suspicion for focal bony injury, dedicated bone radiography of the area in question is advised.
--- NOTE | 2019-07-01 02:41 | RADIOLOGY REPORT (SQ) ---
CLINICAL INDICATION: trauma. Pain. TECHNIQUE: Single view(s) obtained of the 0215. COMPARISON: None. FINDINGS: No acute displaced fracture is identified. Alignment appears anatomic. Osteoarthritis. Vascular calcification. IUD projecting over the uterus, unexpected in a woman of 65 years. This has the appearance of a Lippes Loop IMPRESSION: No acute displaced fracture is identified.
--- NOTE | 2019-07-01 02:57 | ER Document Report ---
ED General - General Chief Complaint: Arrhythmia Stated Complaint: GENERAL WEAKNESS Time Seen by Provider: 07/01/19 00:18 TRAVEL OUTSIDE OF THE [place] IN LAST 30 DAYS: No - HPI Notes: 64-year-old female history of CHF preserved EF, hypertension, hyperlipidemia, diabetes, COPD, CAD, pulmonary hypertension presents with fall and bradycardia. Patient says that she slipped today because walker got stuck, but patient is poor historian limiting history. Patient denies any pain, recent illness, focal weakness, change in vision speech, fever, GI symptoms, urinary symptoms, chest pain, syncope, neck pain, back pain. - Related Data Allergies/Adverse Reactions: pregabalin [From Lyrica] Allergy (Intermediate, Verified 07/03/19 07:18) RASH duloxetine Allergy (Verified 07/03/19 07:18) Past Medical History - General Information source: [facility] Records Cannot obtain history due to: Altered mental status - Social History Smoking Status: Never Smoker Family History: CAD, Hyperlipidemia, Hypertension, Reviewed & Not Pertinent Patient has homicidal ideation: No - Past Medical History Cardiac Medical History: Reports: Hx Congestive Heart Failure, Hx Coronary Artery Disease, Hx Heart Attack, Hx Hypercholesterolemia, Hx Hypertension, Hx Peripheral Vascular Disease Denies: Hx Atrial Fibrillation Pulmonary Medical History: Reports: Hx Bronchitis Denies: Hx Asthma, Hx COPD, Hx Pneumonia, Hx Tuberculosis Neurological Medical History: Reports: Hx Cerebrovascular Accident - 2007. Denies: Hx Seizures, Hx Parkinson's Disease Endocrine Medical History: Reports: Hx Diabetes Mellitus Type 1, Hx Diabetes Mellitus Type 2 Renal/ Medical History: Denies: Hx End Stage Renal Disease, Hx Peritoneal Dialysis Malignancy Medical History: GI Medical History: Reports: Hx Diverticulitis - diverticulosis. Denies: Hx Gastroesophageal Reflux Disease, Hx Hiatal Hernia Musculoskeletal Medical History: Denies Hx Arthritis, Denies Hx Systemic Lupus Erythematosus Skin Medical History: Denies Hx MRSA Psychiatric Medical History: Denies: Hx Bipolar Disorder, Hx Depression Traumatic Medical History: Infectious Medical History: Past Surgical History: Reports: Hx Cardiac Surgery - quad bypass, Hx Coronary Artery Bypass Graft - May 16 2011, Hx Tonsillectomy, Hx Vascular Surgery. Denies: Hx Appendectomy, Hx Cardiac Catheterization, Hx Section, Hx Cholecystectomy, Hx Hysterectomy, Hx Mastectomy, Hx Tubal Ligation - Immunizations Immunizations up to date: No Hx Diphtheria, Pertussis, Tetanus Vaccination: Yes Hx Pneumococcal Vaccination: 11/20/10 Review of Systems - Review of Systems -: Yes ROS unobtainable due to patient's medical condition Physical Exam - Vital signs Vitals: Resp Pulse Ox 17 88 L 07/01/19 00:10 07/01/19 00:10 - Notes Notes: PHYSICAL EXAMINATION: GENERAL: Chronically ill-appearing middle-aged woman appearing older than stated age in no acute distress. HEAD: Atraumatic, normocephalic. EYES: Pupils equal round and appropriate constriction, sclera anicteric, conjunctiva are normal. ENT: nares patent, moist mucous membranes. NECK: Normal range of motion, supple without lymphadenopathy LUNGS: Breath sounds clear to auscultation bilaterally and equal. No wheezes rales or rhonchi. HEART: Regular rate and rhythm without murmurs ABDOMEN: Soft, nontender, no guarding, no masses, no CVAT EXTREMITIES: Normal range of motion, no pitting or edema. No cyanosis. No signs of trauma on head to toe fully undressed trauma exam. NEUROLOGICAL: Awake, mildly drowsy appearing, speech slow and unclear, oriented x1. moves all extremities to command. Unable to participate in cranial nerve ex am 2/2 ams. PSYCH: Normal mood, flat affect. SKIN: Warm, Dry, normal turgor, no rashes or lesions noted. Course - Re-evaluation Re-evalutation: 07/01/19 02:03 Altered mental status with generally mildly decreased level of consciousness. No focal findings on exam. No signs of trauma on exam. Sinus bradycardia with borderline hypotension. Rule out electrolyte abnormalities, ACS, symptomatic anemia, intracranial hemorrhage, uremia, intoxication. Patient possibly with stroke symptoms but not candidate for clot retrieval or TPA given history of intracranial hemorrhage and on the known duration of symptoms. We will continue to monitor closely in ED 07/01/19 03:21 Patient in acute on chronic renal failure with market worsening of creatinine since last value few months ago. Discussed with patient's primary Dr. Bess who accepts patient to IMCU. Given that patient is only mildly altered and not obtunded, not an airway risk acutely, and potassium is 5.5 without any EKG correlation no indication for immediate dialysis. Possible small subarachnoid on CT by is in the same area as patient's previous stroke and may be a chronic finding, will order 6-hour repeat CT and neuro checks and head of bed at 30 degrees. 07/01/19 07:09 At approximately 6 AM received message from ED nurses by Dr. Bess no longer feels comfortable excepting patient to IMCU and wished for me to consult the ICU for patient. I reevaluated patient who is no longer maintaining MAPs of 65 and sound exam to be unchanged. Ordered additional labs including lactate, repeat troponin, repeat CBC and BMP, repeat CT head to assess for any change in possible area of SAH, and abdominal pelvic CT to assess for possible sources of occult sepsis and/or retroperitoneal hematoma. Patient completely anuric since placing Palacio, unable to produce any sample for UA consistent with collapsed bladder seen on ultrasound prior to Palacio insertion. I performed bedside ultrasound that showed predominant a lines on bilateral lung barber, mild global hypokinesis of the myocardium without any focal wall motion abnormalities and a dilated RV and dilated IVC which was non-collapsible. EFAST exam was negative. Given a lines ordered additional small fluid bolus because of lack of ultrasonic signs of volume overload and lungs despite elevated BNP, although signs of right heart failure on bedside ultrasound make it unlikely that patient will be fluid responsive. ICU attending and SENIOR UX DEVELOPER in ED currently evaluating patient. 07/01/19 07:56 Patient accepted to ICU when bed available. - Vital Signs Vital signs: Temp Pulse Resp BP Pulse Ox 98.2 F 72 14 148/74 H 92 07/08/19 09:36 07/08/19 09:36 07/08/19 14:00 07/08/19 13:04 07/08/19 14:00 - Laboratory Result Diagrams: 07/06/19 04:12 07/07/19 04:03 Laboratory results interpreted by me: 07/01/19 07/01/19 07/01/19 00:14 00:14 00:14 RBC 2.84 L Hgb 8.8 L Hct 26.9 L RDW 17.7 H Lymph % (Auto) 6.9 L Absolute Neuts (auto) 8.4 H Seg Neutrophils % 83.6 H PT 18.6 H Potassium 5.5 H Chloride 109 H Carbon Dioxide 17 L BUN 72 H Creatinine 5.13 H Est GFR ( Amer) 10 L Est GFR (MDRD) Non-Af 8 L Glucose 124 H Phosphorus 7.8 H Magnesium 3.1 H Alkaline Phosphatase 246 H NT-Pro-B Natriuret Pep Albumin 3.1 L 07/01/19 00:14 RBC Hgb Hct RDW Lymph % (Auto) Absolute Neuts (auto) Seg Neutrophils % PT Potassium Chloride Carbon Dioxide BUN Creatinine Est GFR ( Amer) Est GFR (MDRD) Non-Af Glucose Phosphorus Magnesium Alkaline Phosphatase NT-Pro-B Natriuret Pep 62538 H Albumin - EKG Interpretation by Me Additional EKG results interpreted by me: 07/01/19 00:30 sinus bradycardia, rate 48, lateral T wave flattening, no significant ST eleva tions/depressions, QTc 447 borderline IVCD, no peaked T waves Critical Care Note - Critical Care Note Total time excluding time spent on procedures (mins): 40 Discharge - Discharge Clinical Impression: Renal failure Condition: Critical Disposition: ADMITTED INPATIENT Admitting Provider: Shahriar Unit Admitted: LYRIC
[2019-07-01 04:38] LABS: A TYPE INFLUENZA AG NEGATIVE (NEGATIVE)
[2019-07-01 04:39] LABS: B INFLUENZA AG NEGATIVE (NEGATIVE)
[2019-07-01] MEDS ORDERED: NORMAL SALINE 500 ML IV ONE ×2 (05:57→06:46)
--- NOTE | 2019-07-01 06:16 | EKG REPORT ---
SEVERITY:- ABNORMAL ECG - SINUS BRADYCARDIA BORDERLINE IVCD WITH LAD NONSPECIFIC T ABNORMALITIES, LATERAL LEADS : Confirmed by: Thong Willett MD 01-Jul-2019 06:15:21
[2019-07-01 07:01] LABS: APPEARANCE,URINE TURBID; BILIRUBIN,URINE NEGATIVE (NEGATIVE); COLOR,URINE YELLOW; GLUCOSE, URINE NEGATIVE (NEGATIVE); KETONES,URINE NEGATIVE (NEGATIVE); LEUKOCYTE ESTERASE,URINE MODERATE (NEGATIVE); NITRITE,URINE NEGATIVE (NEGATIVE); PROTEIN,URINE 100 mg/dL (NEGATIVE); URINE SPECIFIC GRAVITY 1.024; UROBILINOGEN,URINE NEGATIVE mg/dL (<2.0)
[2019-07-01 07:21] LABS: ABSOLUTE EOSINOPHILS # (AUTO) 0.1 10^3/uL (0.0-0.6); ABSOLUTE LYMPHOCYTES (AUTO) 0.8 10^3/uL (0.5-4.7); ABSOLUTE MONOCYTES (AUTO) 0.8 10^3/uL (0.1-1.4); ABSOLUTE NEUT (AUTO) 7.8 10^3/uL (1.7-8.2); BASOPHILS % (AUTO) 0.3 % (0-2); EOSINOPHILS % (AUTO) 0.5 % (0-6); HEMATOCRIT 25.9 % (36.0-47.0); HEMOGLOBIN 8.4 g/dL (12.0-15.5); LYMPHOCYTES % (AUTO) 8.8 % (13-45); MEAN CORPUSCULAR HEMOGLOBIN 30.9 pg (27.0-33.4); MEAN CORPUSCULAR HGB CONC 32.4 g/dL (32.0-36.0); MEAN CORPUSCULAR VOLUME 95 fl (80-97); MONOCYTES % (AUTO) 8.1 % (3-13); PLATELET COUNT 232 10^3/uL (150-450); RED BLOOD COUNT 2.72 10^6/uL (3.72-5.28); RED CELL DISTRIBUTION WIDTH 18.1 % (11.5-14.0); SEGMENTED NEUTROPHILS % (AUTO) 82.3 % (42-78); TOTAL CELLS COUNTED % (AUTO) 100 %; WHITE BLOOD COUNT 9.5 10^3/uL (4.0-10.5)
--- NOTE | 2019-07-01 07:48 | RADIOLOGY REPORT (SQ) ---
CT abdomen and pelvis without contrast on 07/01/2019 at 7:18 AM CLINICAL INDICATION: Hypotension, acute renal failure, possible sepsis TECHNIQUE: Multiple axial images are obtained throughout the abdomen and pelvis without the administration of contrast. This exam was performed according to our departmental dose-optimization program, which includes automated exposure control, adjustment of the mA and/or kV according to patient size and/or use of iterative reconstruction technique. Total DLP is 719.81 mGy*cm. COMPARISON: 03/13/2019 FINDINGS: Abdomen: There are small bilateral pleural effusions. There are adjacent bilateral lower lung opacities consistent with atelectasis and/or pneumonia. Anasarca is noted in the subcutaneous tissues. Vascular calcifications are noted. Gallstones are noted in the contracted gallbladder. There are no renal or ureteral stones and no hydronephrosis. The unenhanced solid abdominal organs are otherwise unremarkable. There is no abdominal adenopathy. There is no free air in the abdomen. The abdominal portion of the GI tract is unremarkable. Pelvis: Intrauterine device is again noted in the uterus. There is a stable air containing structure in the left pelvis that may represent giant diverticulum. There is diverticulosis. Pelvic portion of the GI tract is otherwise unremarkable. Palacio catheter is noted in the bladder. There is no pelvic adenopathy. Degenerative changes are noted in the spine. IMPRESSION: 1. Bilateral pleural effusions with anasarca consistent with some volume overload and/or third spacing. 2. Bilateral lower lung opacities consistent with atelectasis and/or pneumonia. 3. Cholelithiasis. 4. Diverticulosis. 5. Otherwise stable exam.
[2019-07-01 07:50] LABS: ALBUMIN 2.9 g/dL (3.5-5.0); ALKALINE PHOSPHATASE 228 U/L (38-126); ANION GAP 10 (5-19); ASPARTATE AMINO TRANSFERASE 16 U/L (14-36); BILIRUBIN,DIRECT 0.3 mg/dL (0.0-0.4); BILIRUBIN,TOTAL 0.6 mg/dL (0.2-1.3); BLOOD UREA NITROGEN 73 mg/dL (7-20); CALCIUM 8.3 mg/dL (8.4-10.2); CARBON DIOXIDE 19 mmol/L (22-30); CHLORIDE 109 mmol/L (98-107); GLUCOSE 109 mg/dL (75-110); POTASSIUM 5.4 mmol/L (3.6-5.0); TOTAL PROTEIN 7.1 g/dL (6.3-8.2)
--- NOTE | 2019-07-01 07:53 | RADIOLOGY REPORT (SQ) ---
CT head without contrast on 07/01/2019 at 7:15 AM CLINICAL INDICATION: Hypotension, possible sepsis, follow-up recent abnormal head CT TECHNIQUE: Multiple axial images are obtained throughout the head without the administration of contrast. This exam was performed according to our departmental dose-optimization program, which includes automated exposure control, adjustment of the mA and/or kV according to patient size and/or use of iterative reconstruction technique. Total DLP is 963.96 mGy*cm. COMPARISON: 07/01/2019 at 1:12 AM and older exams from 04/12/2019 and 03/30/2019 FINDINGS: There is encephalomalacia in the right temporal lobe at site of prior large intraparenchymal hematoma from old exams in March 2019. There is minimal residual high density consistent with some gliosis or minimal residual blood products from the prior hemorrhage. No evidence to suggest new hemorrhage is noted. There is low-density in the periventricular white matter consistent with chronic small vessel ischemic changes. There is no hydrocephalus. There is no mass, mass effect or midline shift. No abnormal extra-axial fluid collection is noted. No bony abnormality is noted. IMPRESSION: Findings consistent with sequela from the prior area of hemorrhage from March 2019 in the right temporal lobe with no evidence to suggest new hemorrhage.
--- NOTE | 2019-07-01 07:59 | CRITICAL CARE ADMISSION REPORT ---
HPI Date:: 07/01/19 Time:: 07:15 Reason for ICU Reason:: Acute Renal Failure, Dehydration HPI: Ms Gamino is a 64 year old AAF with a PMH of HFpEF, hypertension, hyperlipidemia, diabetes, COPD, CAD, pulmonary hypertension. Presented to the ED after a fall, she states her walker got stuck and she lost he balance. She denies any pain or trauma associated with fall. In the ED a head CT was obtained which showed old lacunar infarct and a possible small SAH in the right frontal lobe. Palacio was placed and returned 10 cc of dark cloudy foul-smelling urine, this was sent for a UA which revealed moderate blood moderate leukocyte esterase 3+ bacteria. Patient was found to be hypothermic with a rectal temp of 95.5 she is also hypotensive most recent blood pressure 78/36 with a mean of 50. She was given a dozen cc bolus in the ER. She is admitted to the ICU for further management. - Diagnosis/Plan (1) Renal failure Qualifiers: Renal failure chronicity: acute on chronic Acute renal failure type: unspecified Chronic kidney disease stage: unspecified stage Qualified Code(s): N17.9 - Acute kidney failure, unspecified; N18.9 - Chronic kidney disease, unspecified Is this a current diagnosis for this admission?: Yes Plan: Creatinine on admission was 5.13 with a baseline of 0.9-1.2 Most likely secondary to dehydration we will volume resuscitate (2) UTI (urinary tract infection) Qualifiers: Urinary tract infection type: acute cystitis Is this a current diagnosis for this admission?: Yes Plan: UA consistent with a UTI We will start ceftriaxone 1 g daily (3) Heart failure with preserved ejection fraction Qualifiers: Heart failure chronicity: acute on chronic Qualified Code(s): I50.33 - Acute on chronic diastolic (congestive) heart failure Is this a current diagnosis for this admission?: Yes Plan: BNP on admission 10,900 we will hold off on diuresis as patient is dehydrated Will need echo and cardiology follow-up on discharge Plan Summary: 64-year-old female admitted with UTI dehydration acute renal failure we will diurese start ceftriaxone 1 g daily, Palacio for strict I&O, will monitor renal function as well as urine output. We will volume resuscitate. Past Medical History Cardiac Medical History: Reports: Congestive Heart Failure, Coronary Artery Disease, Myocardial Infarction, Hyperlipidema, Hypertension, Peripheral Vascular Disease Denies: Atrial Fibrillation Pulmonary Medical History: Reports: Bronchitis Denies: Asthma, Chronic Obstructive Pulmonary Disease (COPD), Pneumonia, Tuberculosis Neurological Medical History: Denies: Seizures Endocrine Medical History: Reports: Diabetes Mellitus Type 1, Diabetes Mellitus Type 2 Renal/ Medical History: Denies: End Stage Renal Disease Malignancy Medical History: GI Medical History: Reports: Diverticulitis - diverticulosis Denies: Gastroesophageal Reflux Disease, Hiatal Hernia Musculoskeltal Medical History: Denies: Arthritis Psychiatric Medical History: Denies: Bipolar Disorder, Depression Hematology: Denies: Anemia, Hemophilia, Sickle Cell Disease Infectious Medical History: Past Surgical History Past Surgical History: Reports: Coronary Artery Bypass Graft - May 16 2011, Tonsillectomy, Vascular Surgery Denies: Amputation, Appendectomy, Cardiac Catheterization, Section, Cholecystectomy, Hysterectomy, Mastectomy, Tubal Ligation Social/Family History - Social History Smoking Status: Never Smoker Frequency of Alcohol Use: None Hx Recreational Drug Use: No Drugs: None Hx Prescription Drug Abuse: No - Medication/Allergies Home Medications: Amlodipine Besylate [Norvasc 10 mg Tablet] 10 mg PO DAILY 11/30/18 Ascorbic Acid [Vitamin C 500 mg Tablet] 500 mg PO DAILY 11/30/18 Atorvastatin Calcium [Lipitor 20 mg Tablet] 20 mg PO QHS 11/30/18 Docusate Sodium [Colace 100 mg Capsule] 100 mg PO BIDP PRN 11/30/18 Ferrous Sulfate [Feosol 325 mg Tablet] 325 mg PO DAILY 11/30/18 Furosemide [Lasix 20 mg Tablet] 40 mg PO BID 11/30/18 Gabapentin [Neurontin 300 mg Capsule] 300 mg PO Q8 01/06/19 Insulin Degludec [Tresiba Flextouch U-100] 40 unit SQ DAILY 01/06/19 Escitalopram Oxalate [Lexapro 10 mg Tablet] 10 mg PO QHS #30 tablet 03/01/19 Carvedilol [Coreg 12.5 mg Tablet] 12.5 mg PO Q12 04/13/19 Cholecalciferol (Vitamin D3) [Vitamin D3 1000 Unit Tablet] 2,000 unit PO DAILY 04/13/19 Dicyclomine HCl [Bentyl 10 mg Capsule] 10 mg PO ACHS 04/13/19 Famotidine [Pepcid] 20 mg PO BID 04/13/19 Hydralazine HCl 100 mg PO Q8 04/13/19 Mesalamine [Asacol Hd] 800 mg PO TID 04/13/19 Ipratropium/Albuterol Sulfate [Duoneb 3 ml Ampul] 3 ml NEB RTQ6HP PRN 30 Days #60 vial.[facility] 04/20/19 Multivit,Tx with Iron,Minerals [Thera-M] 1 each PO DAILY 05/08/19 Olmesartan Medoxomil [Benicar] 20 mg PO DAILY 05/08/19 Sucralfate [Carafate 1 gm Tablet] 1 gm PO ACHS 05/08/19 Allergies/Adverse Reactions: pregabalin [From Lyrica] Allergy (Intermediate, Verified 04/04/19 09:00) RASH duloxetine Allergy (Verified 04/04/19 09:00) Physical Exam Vital Signs: Temp Pulse Resp BP Pulse Ox 95.6 F L 12 70/29 L 95 07/01/19 05:33 07/01/19 06:52 07/01/19 06:52 07/01/19 06:52 Intake & Output 06/30/19 07/01/19 07/02/19 06:59 06:59 06:59 Weight 102.7 kg Weight/Height Weight 102.7 kg Laboratory/Radiographs Laboratory Results: 07/01/19 00:14 07/01/19 00:14 07/01/19 07/01/19 07/01/19 00:14 00:14 00:14 WBC 10.0 RBC 2.84 L Hgb 8.8 L Hct 26.9 L MCV 95 MCH 31.1 MCHC 32.8 RDW 17.7 H Plt Count 221 Seg Neutrophils % 83.6 H Sodium 138.5 Potassium 5.5 H Chloride 109 H Carbon Dioxide 17 L Anion Gap 13 BUN 72 H Creatinine 5.13 H Est GFR ( Amer) 10 L Glucose 124 H Calcium 8.6 Phosphorus 7.8 H Magnesium 3.1 H Total Bilirubin 0.7 AST 17 Alkaline Phosphatase 246 H Total Protein 7.6 Albumin 3.1 L TSH 1.92 Blood Type Antibody Screen 07/01/19 01:42 WBC RBC Hgb Hct MCV MCH MCHC RDW Plt Count Seg Neutrophils % Sodium Potassium Chloride Carbon Dioxide Anion Gap BUN Creatinine Est GFR ( Amer) Glucose Calcium Phosphorus Magnesium Total Bilirubin AST Alkaline Phosphatase Total Protein Albumin TSH Blood Type A2subB POSITIVE Antibody Screen NEGATIVE 07/01/19 07/01/19 00:14 00:14 Creatine Kinase 33 Troponin I 0.014 NT-Pro-B Natriuret Pep 63787 H Impressions: Cervical Spine CT 07/01/19 01:02 IMPRESSION: 1. No acute findings of the cervical spine. Limitation. 2. Small patchy opacity-atelectasis partially imaged at the right lung apex. Similar pattern radiographs from April 2019. Recommend CR/CT surveillance including at 7-12 weeks following initiation of any clinically warranted therapy. Head CT 07/01/19 01:02 IMPRESSION: Small high attenuation at the right temporal cortex may indicate small hemorrhagic contusion/ischemia, small subarachnoid hemorrhage, or small calcified sequela in an area of prior insult shown on exam dated March 30, 2019. Moderate encephalomalacia-infarct of the right temporal lobe. Lacunar infarcts of the right basal ganglia. Recommend CT/MR surveillance. Chest X-Ray 07/01/19:20 IMPRESSION: No evidence of active intrathoracic disease. If there is suspicion for focal bony injury, dedicated bone radiography of the area in question is advised. Pelvis X-Ray 07/01/19 01:20 IMPRESSION: No acute displaced fracture is identified. All labs, radiographs, diagnostic studies and EKGs were personally reviewed: Yes In addition, reports of radiographic and diagnostic studies were read: Yes Critical Time Critical Time (minutes): 60 -: The care of a critically ill patient is dynamic. This note represents a static moment in the admission process. Orders and treatments may be given simultaneously and urgently, and time is not patient account representative of the treatment process. This patient requires Critical Care secondary to life threatening organ or limb dysfunction. Without Critical Care services, the patient is at risk for increased mortality and morbidity.
[2019-07-01 08:10] LABS: URINE AMPHETAMINES SCREEN NEGATIVE; URINE BARBITURATES SCREEN NEGATIVE; URINE BENZODIAZEPINES SCREEN NEGATIVE; URINE COCAINE SCREEN NEGATIVE; URINE MARIJUANA (THC) SCREEN NEGATIVE; URINE METHADONE SCREEN NEGATIVE; URINE PHENCYCLIDINE SCREEN NEGATIVE
[2019-07-01 09:20] LABS: URINE CREATININE 204.4 mg/dL (15-278)
[2019-07-01] MEDS: CEFTRIAXONE 1 GM/D5W RTU 1 GM/50 ML RTUPB IV SCH (10:06)
[2019-07-01] MEDS ORDERED: CALCIUM GLUCONATE 1000 MG/10 ML INJ IV ONE (10:58)
[2019-07-01] MEDS: CALCIUM GLUCONATE 1 GM/NS 50 ML RTU IV SCH ×2 (11:08→12:06)
[2019-07-01] MEDS ORDERED: NOREPINEPHRINE BITARTRATE INJ/PF 4 MG/4 ML SDV IV ONE (12:40)
[2019-07-01] MEDS: DEXTROSE 5%-WATER 250 ML with NOREPINEPHRINE BITARTRATE 4 MG IV PRN ×4 (12:46→20:42)
[2019-07-01] MEDS: HEPARIN SOD (PORCINE) 5,000 UNIT/ML 1 ML VIAL SUBCUT SCH ×2 (13:58→22:20)
[2019-07-01] MEDS ORDERED: NORMAL SALINE 1000 ML 1,000 ML IV PRN ×3 (16:22→16:24)
[2019-07-01] MEDS: NORMAL SALINE 1000 ML 1,000 ML IV PRN (20:00)
[2019-07-02 00:04] LABS: ANION GAP 12 (5-19); BLOOD UREA NITROGEN 69 mg/dL (7-20); CALCIUM 8.5 mg/dL (8.4-10.2); CARBON DIOXIDE 14 mmol/L (22-30); CHLORIDE 111 mmol/L (98-107); GLUCOSE 124 mg/dL (75-110); POTASSIUM 5.2 mmol/L (3.6-5.0)
[2019-07-02] MEDS: HEPARIN SOD (PORCINE) 5,000 UNIT/ML 1 ML VIAL SUBCUT SCH ×3 (05:46→21:24)
[2019-07-02] MEDS: DEXTROSE 5%-WATER 250 ML with NOREPINEPHRINE BITARTRATE 4 MG IV PRN ×4 (05:46→14:03)
[2019-07-02] MEDS: NORMAL SALINE 1000 ML 1,000 ML IV PRN (05:48)
[2019-07-02 06:01] LABS: ABSOLUTE EOSINOPHILS # (AUTO) 0.1 10^3/uL (0.0-0.6); ABSOLUTE MONOCYTES (AUTO) 0.9 10^3/uL (0.1-1.4); ABSOLUTE NEUT (AUTO) 5.9 10^3/uL (1.7-8.2); BASOPHILS % (AUTO) 0.5 % (0-2); EOSINOPHILS % (AUTO) 1.9 % (0-6); HEMATOCRIT 27.9 % (36.0-47.0); HEMOGLOBIN 9.1 g/dL (12.0-15.5); MEAN CORPUSCULAR HEMOGLOBIN 30.7 pg (27.0-33.4); MEAN CORPUSCULAR HGB CONC 32.7 g/dL (32.0-36.0); MEAN CORPUSCULAR VOLUME 94 fl (80-97); MONOCYTES % (AUTO) 11.8 % (3-13); PLATELET COUNT 273 10^3/uL (150-450); RED BLOOD COUNT 2.98 10^6/uL (3.72-5.28); RED CELL DISTRIBUTION WIDTH 17.5 % (11.5-14.0); SEGMENTED NEUTROPHILS % (AUTO) 73.8 % (42-78); TOTAL CELLS COUNTED % (AUTO) 100 %
[2019-07-02 06:07] LABS: INTERNATIONAL RATION (INR) 1.42; PROTHROMBIN TIME 17.5 SEC (11.4-15.4)
[2019-07-02 06:08] LABS: PARTIAL THROMBOPLASTIN TIME 33.7 SEC (23.5-35.8)
[2019-07-02 06:19] LABS: ALBUMIN 3.2 g/dL (3.5-5.0); ALKALINE PHOSPHATASE 242 U/L (38-126); ANION GAP 15 (5-19); ASPARTATE AMINO TRANSFERASE 19 U/L (14-36); BILIRUBIN,DIRECT 0.5 mg/dL (0.0-0.4); BILIRUBIN,TOTAL 0.7 mg/dL (0.2-1.3); BLOOD UREA NITROGEN 71 mg/dL (7-20); CALCIUM 8.5 mg/dL (8.4-10.2); CARBON DIOXIDE 13 mmol/L (22-30); CHLORIDE 110 mmol/L (98-107); GLUCOSE 125 mg/dL (75-110); POTASSIUM 5.4 mmol/L (3.6-5.0); TOTAL PROTEIN 7.9 g/dL (6.3-8.2)
[2019-07-02 06:33] LABS: FREE T4 (FREE THYROXINE) 1.22 ng/dL (0.78-2.19)
[2019-07-02 06:47] LABS: THYROID STIMULATING HORMONE 1.73 uIU/mL (0.47-4.68)
[2019-07-02] MEDS: SODIUM POLYSTYRENE SULFONATE 15 GM/60 ML PO SCH ×2 (09:46→21:25)
[2019-07-02] MEDS: CEFTRIAXONE 1 GM/D5W RTU 1 GM/50 ML RTUPB IV SCH (09:46)
--- NOTE | 2019-07-02 11:03 | PDOC CRITICAL CARE PROG REPORT ---
General Date:: 07/02/19 ICU Day:: 2 Hospital Day:: 2 Resuscitation Status: Full Code Events in the past 12 to 24 Hours:: A bit more awake. Still with hypoactive delirium. Kidney function no better. Review of systems relevant to events:: Renal, neurological. Reason for ICU Addmission:: Acute Renal Failure, Dehydration. - Medications: Medications reviewed and adjusted accordingly: Yes Vasopressors:: Levophed Sedation:: None Physical Exam Vital Signs: Temp Pulse Resp BP Pulse Ox 97.5 F 63 19 99/48 L 100 07/02/19 08:00 07/02/19 08:00 07/02/19 10:00 07/02/19 09:57 07/02/19 10:00 Intake & Output 07/01/19 07/02/19 07/03/19 06:59 06:59 06:59 Intake Total 5474 Output Total 150 0 Balance 5324 0 Weight 102.7 kg 101.5 kg Weight/Height Weight 101.5 kg Height 5 ft 4 in General appearance: PRESENT: no acute distress, cooperative, obese Head exam: PRESENT: atraumatic, normocephalic Eye exam: PRESENT: conjunctiva pink, EOMI, PERRLA. ABSENT: scleral icterus Ear exam: PRESENT: normal external ear exam Mouth exam: PRESENT: moist, tongue midline Respiratory exam: PRESENT: clear to auscultation lele. ABSENT: rales, rhonchi, wheezes Cardiovascular exam: PRESENT: RRR. ABSENT: diastolic murmur, rubs, systolic murmur GI/Abdominal exam: PRESENT: normal bowel sounds, soft. ABSENT: distended, guarding, mass, organolmegaly, rebound, tenderness Rectal exam: PRESENT: deferred Gentrourinary exam: PRESENT: indwelling catheter Extremities exam: PRESENT: full ROM. ABSENT: calf tenderness, clubbing, pedal edema Musculoskeletal exam: PRESENT: normal inspection Neurological exam: PRESENT: altered, CN II-XII grossly intact Skin exam: PRESENT: dry, intact, warm. ABSENT: cyanosis, rash Laboratory/Radiographs Laboratory Results: 07/02/19 05:32 07/02/19 05:37 07/01/19 07/01/19 07/02/19 23:42 23:42 05:32 WBC 8.0 RBC 2.98 L Hgb 9.1 L Hct 27.9 L MCV 94 MCH 30.7 MCHC 32.7 RDW 17.5 H Plt Count 273 Seg Neutrophils % 73.8 Sodium 137.1 Potassium 5.2 H Chloride 111 H Carbon Dioxide 14 L Anion Gap 12 BUN 69 H Creatinine 5.26 H Est GFR ( Amer) 10 L Glucose 124 H Lactic Acid 0.6 L Calcium 8.5 Magnesium Total Bilirubin AST Alkaline Phosphatase Total Protein Albumin TSH Free T4 07/02/19 07/02/19 05:32 05:37 WBC RBC Hgb Hct MCV MCH MCHC RDW Plt Count Seg Neutrophils % Sodium 137.9 Potassium 5.4 H Chloride 110 H Carbon Dioxide 13 L Anion Gap 15 BUN 71 H Creatinine 5.25 H Est GFR ( Amer) 10 L Glucose 125 H Lactic Acid Calcium 8.5 Magnesium 2.9 H Total Bilirubin 0.7 AST 19 Alkaline Phosphatase 242 H Total Protein 7.9 Albumin 3.2 L TSH 1.73 Free T4 1.22 07/01/19 07/01/19 07/01/19 00:14 00:14 07:07 Creatine Kinase 33 Troponin I 0.014 < 0.012 NT-Pro-B Natriuret Pep 26014 H 07/01/19 07/02/19 23:42 05:32 Creatine Kinase Troponin I NT-Pro-B Natriuret Pep 9620 H 9700 H Impressions: Cervical Spine CT 07/01/19 01:02 IMPRESSION: 1. No acute findings of the cervical spine. Limitation. 2. Small patchy opacity-atelectasis partially imaged at the right lung apex. Similar pattern radiographs from April 2019. Recommend CR/CT surveillance including at 7-12 weeks following initiation of any clinically warranted therapy. Chest X-Ray 07/01/19 01:20 IMPRESSION: No evidence of active intrathoracic disease. If there is suspicion for focal bony injury, dedicated bone radiography of the area in question is advised. Pelvis X-Ray 07/01/19 01:20 IMPRESSION: No acute displaced fracture is identified. Head CT 07/01/19 06:54 IMPRESSION: Findings consistent with sequela from the prior area of hemorrhage from March 2019 in the right temporal lobe with no evidence to suggest new hemorrhage. Abdomen/Pelvis CT 07/01/19 06:58 IMPRESSION: 1. Bilateral pleural effusions with anasarca consistent with some volume overload and/or third spacing. 2. Bilateral lower lung opacities consistent with atelectasis and/or pneumonia. 3. Cholelithiasis. 4. Diverticulosis. 5. Otherwise stable exam. EKG: SB All labs, radiographs, diagnostic studies and EKGs were personally reviewed: Yes In addition, reports of radiographic and diagnostic studies were read: Yes Assessment and Plan - Diagnosis (1) Acute renal failure Qualifiers: Acute renal failure type: with acute tubular necrosis Qualified Code(s): N17.0 - Acute kidney failure with tubular necrosis Is this a current diagnosis for this admission?: Yes Plan: She is now acidotic and may need HD. If kidney function is no better by Wed may need to start. (2) UTI (urinary tract infection) Qualifiers: Urinary tract infection type: acute cystitis Is this a current diagnosis for this admission?: Yes Plan: C7S still pending on empiric antibiotics. (3) COPD (chronic obstructive pulmonary disease) Qualifiers: COPD type: unspecified COPD Qualified Code(s): J44.9 - Chronic obstructive pulmonary disease, unspecified Is this a current diagnosis for this admission?: No Plan: Inactive. (4) Diabetes mellitus type 2 in obese Is this a current diagnosis for this admission?: Yes Plan: Controlled (5) Obesity (BMI 30-39.9) Is this a current diagnosis for this admission?: Yes Plan: Chronic (6) Acidosis, metabolic Is this a current diagnosis for this admission?: Yes Plan: She will be on a bicarb drip. (7) Hyperkalemia, diminished renal excretion Is this a current diagnosis for this admission?: Yes Plan: Level is 5.4. This should improve with bicarb drip. Plan Summary: Keep on levophed. Await renal return if not HD tomorrow. Critical Time Critical Time (minutes): 35 Level of Care: ICU Anticipated discharge: Home Within: Other -: 1. The care of a critical patient is a dynamic process. This note is a outside sales representative insurance synopsis but static in nature. The timeframe for treatments given in order is not necessarily the actual time these treatments may have been done. 2. This patient requires critical care secondary to ongoing requirements for therapy not offered or safe outside the critical care environment. Transfer to a lower level of care will result in altered life or limb morbidity and mortality. 3. Multidisciplinary rounds completed. 4. ABCDE bundle addressed.
[2019-07-02] MEDS: DEXTROSE 5%-WATER 1000 ML 1,000 ML with SODIUM BICARBONATE 150 MEQ IV PRN ×4 (11:15→21:24)
[2019-07-02] MEDS ORDERED: FUROSEMIDE INJ/PF 40 MG/4 ML SDV IV ONE (11:30)
--- NOTE | 2019-07-02 11:31 | PDOC CONSULTATION ---
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 History is basically obtained from her medical records from emergency room and director of group counseling program notes since the patient at this time is quite lethargic and unable to give any sensible history. Patient presented today ED after losing her balance and falling when her walker got stuck. 2 head CTs were done for which the first 1 showed a possible lacunar infarct in the basal ganglia with small hemorrhagic contusion and a small subarachnoid hemorrhage. Repeat head CT was negative for any other changes. Upon presentation patient was also found to be hypothermic with rectal temperature of 95.5, hypotensive with a blood pressure of 78/36 which is currently still persistent requiring Levoped. Her urine was noted to be dark, cloudy and foul-smelling. Urinalysis was consistent with urinary tract infection and so she was started on IV ceftriaxone. She also came in with elevated BUN of 72, creatinine of 5.13 with EGFR of 10. On May 10, 2019 she had a BUN of 20, creatinine of 1.53 with EGFR greater than 60. It appears that for the last few months she has had episodes of acute kidney injury in February and in March. Her creatinine in February peaked to 2.92 and subsequently improving to 0.65 and in March her creatinine peaked at 1.59 and subsequently went down to 0.97. She also presented with mild hyperkalemia with potassium of 5.5 and bicarbonate of 17. Today she has a BUN of 71, creatinine of 5.25 with EGFR of 10, potassium of 5.4 and bicarbonate of 13. She remains to be anuric. Her urine sodium was actually 37. She was given approximately 5+ liters of fluids for the last 24 hours and her urine output was only 150 mL. Her blood cultures so far negative with pending urine culture. She had an abdominal CT scan without contrast which showed no hydronephrosis but has bilateral pleural effusion, anasarca with some third spacing. Her albumin is 3.1. Past Medical History Cardiac Medical History: Reports: Coronary Artery Disease, Hyperlipidemia, Hypertension-primary, Myocardial Infarction, Peripheral Vascular Disease Pulmonary Medical History: Reports: Bronchitis Endocrine Medical History: Reports: Diabetes Mellitus Type 2 Malignancy Medical History: GI Medical History: Reports: Diverticulitis - diverticulosis Musculoskeltal Medical History: Psychiatric Medical History: Infectious Medical History: Past Surgical History Past Surgical History: Reports: Coronary Artery Bypass Graft - May 16 2011, Tonsillectomy, Vascular Surgery Social History Information Source: [facility] Records Smoking Status: Unknown if Ever Smoked Frequency of Alcohol Use: None Hx Recreational Drug Use: No Drugs: None Hx Prescription Drug Abuse: No Family History Family History: Unable to obtain from patient due to her mental status. Parental Family History Reviewed: No Children Family History Reviewed: No Sibling(s) Family History Reviewed.: No Medication/Allergy Home Medications: Amlodipine Besylate [Norvasc 10 mg Tablet] 10 mg PO DAILY 11/30/18 Ascorbic Acid [Vitamin C 500 mg Tablet] 500 mg PO DAILY 11/30/18 Atorvastatin Calcium [Lipitor 20 mg Tablet] 20 mg PO QHS 11/30/18 Docusate Sodium [Colace 100 mg Capsule] 100 mg PO BIDP PRN 11/30/18 Ferrous Sulfate [Feosol 325 mg Tablet] 325 mg PO DAILY 11/30/18 Furosemide [Lasix 20 mg Tablet] 20 mg PO BID 11/30/18 Gabapentin [Neurontin 300 mg Capsule] 300 mg PO Q8 01/06/19 Insulin Degludec [Tresiba Flextouch U-100] 40 unit SQ DAILY 01/06/19 Escitalopram Oxalate [Lexapro 10 mg Tablet] 10 mg PO QHS #30 tablet 03/01/19 Carvedilol [Coreg 12.5 mg Tablet] 12.5 mg PO Q12 04/13/19 Cholecalciferol (Vitamin D3) [Vitamin D3 1000 Unit Tablet] 2,000 unit PO DAILY 04/13/19 Dicyclomine HCl [Bentyl 10 mg Capsule] 10 mg PO ACHS 04/13/19 Famotidine [Pepcid] 20 mg PO BID 04/13/19 Hydralazine HCl 100 mg PO Q8 04/13/19 Ipratropium/Albuterol Sulfate [Duoneb 3 ml Ampul] 3 ml NEB RTQ6HP PRN 30 Days #60 vial.neb 04/20/19 Multivit,Tx with Iron,Minerals [Thera-M] 1 each PO DAILY 05/08/19 Olmesartan Medoxomil [Benicar] 20 mg PO DAILY 05/08/19 Sucralfate [Carafate 1 gm Tablet] 1 gm PO ACHS 05/08/19 Acetaminophen [Acetaminophen Extra Strength] 500 mg PO DAILYP PRN 07/01/19 Allergies/Adverse Reactions: pregabalin [From Lyrica] Allergy (Intermediate, Verified 04/04/19 09:00) RASH duloxetine Allergy (Verified 04/04/19 09:00) Review of Systems ROS unobtainable: Due to mental status Physical Exam Vital Signs: Temp Pulse Resp BP Pulse Ox 97.5 F 64 17 99/48 L 100 07/02/19 08:00 07/02/19 10:00 07/02/19 10:00 07/02/19 10:00 07/02/19 10:00 Intake & Output 07/01/19 07/02/19 07/03/19 06:59 06:59 06:59 Intake Total 5474 Output Total 150 10 Balance 5324 -10 Weight 102.7 kg 101.5 kg Exam: General appearance: No acute distress, lethargic but arousable very briefly for a few seconds, well-developed, well-nourished Head exam: PRESENT: atraumatic, normocephalic Eye exam: PRESENT: Conjunctiva pale, EOMI, PERRLA. ABSENT: conjunctival injection, scleral icterus Mouth exam: PRESENT: moist, neck supple, tongue midline Neck exam: PRESENT: full ROM. ABSENT: carotid bruit, JVD, lymphadenopathy, thyromegaly Respiratory exam: PRESENT: clear to auscultation bilaterally. ABSENT: rales, rhonchi, stridor, wheezes Cardiovascular exam: PRESENT: RRR, +S1, +S2. ABSENT: systolic murmur Pulses: PRESENT: normal radial pulses, normal dorsalis pedis pulses GI/Abdominal exam: PRESENT: normal bowel sounds, soft. ABSENT: guarding, mass, tenderness Rectal exam: Deferred Extremities exam: PRESENT: full ROM. Bilateral trace edema. Left ankle wrapped up in bandage due to ulcer ABSENT: calf tenderness Musculoskeletal: PRESENT: full ROM. ABSENT: deformity Neurological exam: PRESENT: Lethargic but arousable, Oriented to person, Oriented to place, Oriented to time, reflexes normal, CN II-XII grossly intact. ABSENT: motor sensory deficit Psychiatric exam: PRESENT: Difficult to assess due to lethargy Skin exam: PRESENT: intact, dry, warm. ABSENT: rash Results Laboratory Results: 07/02/19 05:32 07/02/19 05:37 07/01/19 07/01/19 07/02/19 23:42 23:42 05:32 WBC 8.0 RBC 2.98 L Hgb 9.1 L Hct 27.9 L MCV 94 MCH 30.7 MCHC 32.7 RDW 17.5 H Plt Count 273 Seg Neutrophils % 73.8 Sodium 137.1 Potassium 5.2 H Chloride 111 H Carbon Dioxide 14 L Anion Gap 12 BUN 69 H Creatinine 5.26 H Est GFR ( Amer) 10 L Glucose 124 H Lactic Acid 0.6 L Calcium 8.5 Magnesium Total Bilirubin AST Alkaline Phosphatase Total Protein Albumin TSH Free T4 07/02/19 07/02/19 05:32 05:37 WBC RBC Hgb Hct MCV MCH MCHC RDW Plt Count Seg Neutrophils % Sodium 137.9 Potassium 5.4 H Chloride 110 H Carbon Dioxide 13 L Anion Gap 15 BUN 71 H Creatinine 5.25 H Est GFR ( Amer) 10 L Glucose 125 H Lactic Acid Calcium 8.5 Magnesium 2.9 H Total Bilirubin 0.7 AST 19 Alkaline Phosphatase 242 H Total Protein 7.9 Albumin 3.2 L TSH 1.73 Free T4 1.22 07/01/19 07/01/19 07/01/19 00:14 00:14 07:07 Creatine Kinase 33 Troponin I 0.014 < 0.012 NT-Pro-B Natriuret Pep 75658 H 07/01/19 07/02/19 23:42 05:32 Creatine Kinase Troponin I NT-Pro-B Natriuret Pep 9620 H 9700 H Impressions: Cervical Spine CT 07/01/19 01:02 IMPRESSION: 1. No acute findings of the cervical spine. Limitation. 2. Small patchy opacity-atelectasis partially imaged at the right lung apex. Similar pattern radiographs from April 2019. Recommend CR/CT surveillance including at 7-12 weeks following initiation of any clinically warranted therapy. Chest X-Ray 07/01/19 01:20 IMPRESSION: No evidence of active intrathoracic disease. If there is suspicion for focal bony injury, dedicated bone radiography of the area in question is advised. Pelvis X-Ray 07/01/19 01:20 IMPRESSION: No acute displaced fracture is identified. Head CT 07/01/19 06:54 IMPRESSION: Findings consistent with sequela from the prior area of hemorrhage from March 2019 in the right temporal lobe with no evidence to suggest new hemorrhage. Abdomen/Pelvis CT 07/01/19 06:58 IMPRESSION: 1. Bilateral pleural effusions with anasarca consistent with some volume overload and/or third spacing. 2. Bilateral lower lung opacities consistent with atelectasis and/or pneumonia. 3. Cholelithiasis. 4. Diverticulosis. 5. Otherwise stable exam. Assessment & Plan - Diagnosis (1) Acute kidney injury Is this a current diagnosis for this admission?: Yes Plan: Patient is currently anuric. She is also persistently hypotensive despite Levoped. This is most likely secondary to initial prerenal azotemia which could have progressed to acute tubular necrosis. Continue cautious IV fluids which I will change to a bicarb drip. I will give her a trial of Lasix 40 mg IV to see if she will start to pass urine. If her kidney function does not improve and she continues to be anuric I think this is more likely than not require renal replacement therapy in the next 24 hours. I called her son Mr. William Funez at [phone] and explained the patient's condition in terms of her kidney function. I discussed with him that if she does not improve she might require of renal replacement therapy in the form of hemodialysis tomorrow. I discussed the risks of dialysis and catheter placement including infection, bleeding and hemodynamic instability which includes hypotension and cardiac arrest. Also discussed how the procedure is done. Patient's son agreed to proceed if hemodialysis is necessary. I also discussed this with the director of group counseling program, Dr. Rodriguez today. (2) Acidosis, metabolic Is this a current diagnosis for this admission?: Yes Plan: Replace current IV fluids with a bicarb drip. (3) Hyperkalemia, diminished renal excretion Is this a current diagnosis for this admission?: Yes Plan: Patient was given Kayexalate. The bicarb drip will also help this. (4) UTI (urinary tract infection) Qualifiers: Urinary tract infection type: acute cystitis Is this a current diagnosis for this admission?: Yes Plan: On IV ceftriaxone. (5) Hypotension Qualifiers: Hypotension type: unspecified hypotension type Qualified Code(s): I95.9 - Hypotension, unspecified Is this a current diagnosis for this admission?: Yes Plan: Levoped. (6) Anemia Qualifiers: Anemia type: other cause Is this a current diagnosis for this admission?: Yes - Notes Notes: Thank you very much for this consultation. Case discussed with Dr. Rodriguez, director of group counseling program. - Time Time Spent: 50 to 70 Minutes
[2019-07-02 15:00] LABS: ANION GAP 12 (5-19); BLOOD UREA NITROGEN 74 mg/dL (7-20); CALCIUM 8.5 mg/dL (8.4-10.2); CARBON DIOXIDE 14 mmol/L (22-30); CHLORIDE 112 mmol/L (98-107); GLUCOSE 141 mg/dL (75-110); POTASSIUM 5.7 mmol/L (3.6-5.0)
[2019-07-02 19:17] LABS: ANION GAP 14 (5-19); CARBON DIOXIDE 16 mmol/L (22-30); CHLORIDE 107 mmol/L (98-107); GLUCOSE 159 mg/dL (75-110); POTASSIUM 4.9 mmol/L (3.6-5.0)
[2019-07-02 19:28] LABS: BLOOD UREA NITROGEN 54 mg/dL (7-20)
[2019-07-03 04:04] LABS: ANION GAP 11 (5-19); BLOOD UREA NITROGEN 72 mg/dL (7-20); CALCIUM 8.4 mg/dL (8.4-10.2); CARBON DIOXIDE 19 mmol/L (22-30); CHLORIDE 109 mmol/L (98-107); GLUCOSE 164 mg/dL (75-110); POTASSIUM 4.3 mmol/L (3.6-5.0)
[2019-07-03] MEDS: HEPARIN SOD (PORCINE) 5,000 UNIT/ML 1 ML VIAL SUBCUT SCH ×3 (05:44→22:44)
[2019-07-03] MEDS: DEXTROSE 5%-WATER 1000 ML 1,000 ML with SODIUM BICARBONATE 150 MEQ IV PRN ×6 (07:07→14:09)
--- NOTE | 2019-07-03 08:19 | PDOC CRITICAL CARE PROG REPORT ---
General Date:: 07/03/19 ICU Day:: 2 Hospital Day:: 2 Resuscitation Status: Full Code Events in the past 12 to 24 Hours:: Much more awake and conversant. Kidney function only slightly better. Review of systems relevant to events:: Renal, neurological. Reason for ICU Addmission:: Acute Renal Failure, Dehydration. Need for levophed. Improving delirium - Medications: Medications reviewed and adjusted accordingly: Yes Vasopressors:: Levophed Sedation:: None Physical Exam Vital Signs: Temp Pulse Resp BP Pulse Ox 98.1 F 67 11 L 119/54 L 97 07/03/19 05:38 07/03/19 07:20 07/03/19 07:15 07/03/19 07:15 07/03/19 07:15 Intake & Output 07/02/19 07/03/19 07/04/19 06:59 06:59 06:59 Intake Total 5474 3000 Output Total 150 200 Balance 5324 2800 Weight 101.5 kg 103.6 kg Weight/Height Weight 103.6 kg Height 5 ft 4 in General appearance: PRESENT: no acute distress, cooperative, obese Head exam: PRESENT: atraumatic, normocephalic Eye exam: PRESENT: conjunctiva pink, EOMI, PERRLA. ABSENT: scleral icterus Ear exam: PRESENT: normal external ear exam Mouth exam: PRESENT: moist, tongue midline Respiratory exam: PRESENT: clear to auscultation lele. ABSENT: rales, rhonchi, wheezes Cardiovascular exam: PRESENT: RRR. ABSENT: diastolic murmur, rubs, systolic murmur GI/Abdominal exam: PRESENT: normal bowel sounds, soft. ABSENT: distended, guarding, mass, organolmegaly, rebound, tenderness Rectal exam: PRESENT: deferred Gentrourinary exam: PRESENT: indwelling catheter Extremities exam: PRESENT: other - R heel decubitus. Present on admission. Musculoskeletal exam: PRESENT: normal inspection Neurological exam: PRESENT: alert, awake, oriented to person, oriented to place, oriented to situation, CN II-XII grossly intact Skin exam: PRESENT: other - Small st 2 decubitus on sacrum. Decubitus on R heel from lying at home. Both POA. Laboratory/Radiographs Laboratory Results: 07/02/19 05:32 07/03/19 03:41 07/02/19 07/02/19 07/03/19 14:35 18:27 03:41 Sodium 137.6 137.1 139.0 Potassium 5.7 H 4.9 4.3 Chloride 112 H 107 109 H Carbon Dioxide 14 L 16 L 19 L Anion Gap 12 14 11 BUN 74 H 54 H D 72 H Creatinine 5.26 H 3.59 H 5.28 H Est GFR ( Amer) 10 L 15 L 10 L Glucose 141 H 159 H 164 H Calcium 8.5 9.0 8.4 07/01/19 07/01/19 07/01/19 00:14 00:14 07:07 Creatine Kinase 33 Troponin I 0.014 < 0.012 NT-Pro-B Natriuret Pep 29583 H 07/01/19 07/02/19 23:42 05:32 Creatine Kinase Troponin I NT-Pro-B Natriuret Pep 9620 H 9700 H Impressions: Cervical Spine CT 07/01/19 01:02 IMPRESSION: 1. No acute findings of the cervical spine. Limitation. 2. Small patchy opacity-atelectasis partially imaged at the right lung apex. Similar pattern radiographs from April 2019. Recommend CR/CT surveillance including at 7-12 weeks following initiation of any clinically warranted therapy. Chest X-Ray 07/01/19 01:20 IMPRESSION: No evidence of active intrathoracic disease. If there is suspicion for focal bony injury, dedicated bone radiography of the area in question is advised. Pelvis X-Ray 07/01/19 01:20 IMPRESSION: No acute displaced fracture is identified. Head CT 07/01/19 06:54 IMPRESSION: Findings consistent with sequela from the prior area of hemorrhage from March 2019 in the right temporal lobe with no evidence to suggest new hemorrhage. Abdomen/Pelvis CT 07/01/19 06:58 IMPRESSION: 1. Bilateral pleural effusions with anasarca consistent with some volume overload and/or third spacing. 2. Bilateral lower lung opacities consistent with atelectasis and/or pneumonia. 3. Cholelithiasis. 4. Diverticulosis. 5. Otherwise stable exam. EKG: SR no longer bradycardic. All labs, radiographs, diagnostic studies and EKGs were personally reviewed: Yes In addition, reports of radiographic and diagnostic studies were read: Yes Assessment and Plan - Diagnosis (1) Acute renal failure Qualifiers: Acute renal failure type: with acute tubular necrosis Qualified Code(s): N17.0 - Acute kidney failure with tubular necrosis Is this a current diagnosis for this admission?: Yes Plan: Although her BUN/Cr and GFR are no better, she has made about 45 cc urine on her own overnight. K 4.3 and acidosis better at 19. Bicarb drip still in place. Will recheck BMP at 6P and hold off on HD for now. (2) UTI (urinary tract infection) Qualifiers: Urinary tract infection type: acute cystitis Is this a current diagnosis for this admission?: Yes Plan: Urine culture thus far negative. If no growth stop antibiotics. (3) COPD (chronic obstructive pulmonary disease) Qualifiers: COPD type: unspecified COPD Qualified Code(s): J44.9 - Chronic obstructive pulmonary disease, unspecified Is this a current diagnosis for this admission?: No Plan: Inactive (4) Diabetes mellitus type 2 in obese Is this a current diagnosis for this admission?: Yes Plan: Controlled. BG 165. (5) Obesity (BMI 30-39.9) Is this a current diagnosis for this admission?: Yes Plan: Chronic (6) Acidosis, metabolic Is this a current diagnosis for this admission?: Yes Plan: Better on bicarb drip. (7) Hyperkalemia, diminished renal excretion Is this a current diagnosis for this admission?: Yes Plan: Improved. Hold on further kayexalate. (8) Delirium due to another medical condition, acute, hypoactive Is this a current diagnosis for this admission?: Yes Plan: Improved. Talking and oriented today. Resolved Plan Summary: Keep on pre-renal diet. OOB to chair. Wean levophed as much as possible. Hold on HD for now. Critical Time Critical Time (minutes): 35 Level of Care: ICU Anticipated discharge: Home with Homehealth Within: Other -: 1. The care of a critical patient is a dynamic process. This note is a product sales representative synopsis but static in nature. The timeframe for treatments given in order is not necessarily the actual time these treatments may have been done. 2. This patient requires critical care secondary to ongoing requirements for therapy not offered or safe outside the critical care environment. Transfer to a lower level of care will result in altered life or limb morbidity and mortality. 3. Multidisciplinary rounds completed. 4. ABCDE bundle addressed.
[2019-07-03] MEDS: DEXTROSE 5%-WATER 250 ML with NOREPINEPHRINE BITARTRATE 4 MG IV PRN ×2 (09:31)
[2019-07-03] MEDS: CEFTRIAXONE 1 GM/D5W RTU 1 GM/50 ML RTUPB IV SCH (09:34)
[2019-07-03] MEDS ORDERED: FUROSEMIDE INJ/PF 100 MG/10 ML SDV IV ONE (13:58)
[2019-07-03 19:12] LABS: ANION GAP 11 (5-19); BLOOD UREA NITROGEN 74 mg/dL (7-20); CALCIUM 8.2 mg/dL (8.4-10.2); CARBON DIOXIDE 21 mmol/L (22-30); CHLORIDE 107 mmol/L (98-107); GLUCOSE 138 mg/dL (75-110); POTASSIUM 3.9 mmol/L (3.6-5.0)
--- NOTE | 2019-07-03 22:57 | PDOC PROGRESS REPORT ---
Subjective Progress Note for:: 07/03/19 Subjective:: Patient is somewhat lethargic but arousable and answers questions. She did not really verbalize much complaints. She is comfortably lying down on room air. Unfortunately she remained to be oligo-anuric. She only made about 200 mL of urine output despite Lasix of 40 mg IV x1 dose yesterday. Her fluid balance at least +8 L. Her blood pressure remains to be relatively low but her Levoped dose is being progressively decreased. Reason For Visit: ACUTE RENAL FAILURE,DEHYDRATION Physical Exam Vital Signs: Temp Pulse Resp BP Pulse Ox 98.0 F 67 13 97/52 L 95 07/03/19 12:13 07/03/19 07:20 07/03/19 12:35 07/03/19 12:35 07/03/19 12:35 Intake & Output 07/02/19 07/03/19 07/04/19 06:59 06:59 06:59 Intake Total 5474 3050 449 Output Total 150 200 110 Balance 5324 2850 339 Weight 101.5 kg 103.6 kg Exam: General appearance: PRESENT: no acute distress, cooperative, well-developed, well-nourished Head exam: PRESENT: atraumatic, normocephalic Eye exam: PRESENT: conjunctiva pale, PERRLA. ABSENT: scleral icterus Neck exam: ABSENT: JVD Respiratory exam: PRESENT: Diminished breath sounds. ABSENT: crackles, rales, rhonchi, unlabored, wheezes Cardiovascular exam: PRESENT: Regular rate rhythm -+S1, +S2. ABSENT: diastolic murmur, systolic murmur GI/Abdominal exam: PRESENT: normal bowel sounds, soft. ABSENT: guarding, mass, tenderness Extremities exam: Obvious developing upper extremity edema with mild lower extremity edema Neurological exam: PRESENT: Relatively lethargic but arousable and answers q uestions. Skin exam: PRESENT: dry, warm, Results Laboratory Results: 07/02/19 05:32 07/03/19 03:41 07/02/19 07/02/19 07/03/19 14:35 18:27 03:41 Sodium 137.6 137.1 139.0 Potassium 5.7 H 4.9 4.3 Chloride 112 H 107 109 H Carbon Dioxide 14 L 16 L 19 L Anion Gap 12 14 11 BUN 74 H 54 H D 72 H Creatinine 5.26 H 3.59 H 5.28 H Est GFR ( Amer) 10 L 15 L 10 L Glucose 141 H 159 H 164 H Calcium 8.5 9.0 8.4 07/01/19 07/01/19 07/01/19 00:14 00:14 07:07 Creatine Kinase 33 Troponin I 0.014 < 0.012 NT-Pro-B Natriuret Pep 10824 H 07/01/19 07/02/19 23:42 05:32 Creatine Kinase Troponin I NT-Pro-B Natriuret Pep 9620 H 9700 H Impressions: Cervical Spine CT 07/01/19 01:02 IMPRESSION: 1. No acute findings of the cervical spine. Limitation. 2. Small patchy opacity-atelectasis partially imaged at the right lung apex. Similar pattern radiographs from April 2019. Recommend CR/CT surveillance including at 7-12 weeks following initiation of any clinically warranted therapy. Chest X-Ray 07/01/19 01:20 IMPRESSION: No evidence of active intrathoracic disease. If there is suspicion for focal bony injury, dedicated bone radiography of the area in question is advised. Pelvis X-Ray 07/01/19 01:20 IMPRESSION: No acute displaced fracture is identified. Head CT 07/01/19 06:54 IMPRESSION: Findings consistent with sequela from the prior area of hemorrhage from March 2019 in the right temporal lobe with no evidence to suggest new hemorrhage. Abdomen/Pelvis CT 07/01/19 06:58 IMPRESSION: 1. Bilateral pleural effusions with anasarca consistent with some volume overload and/or third spacing. 2. Bilateral lower lung opacities consistent with atelectasis and/or pneumonia. 3. Cholelithiasis. 4. Diverticulosis. 5. Otherwise stable exam. Assessment & Plan - Diagnosis (1) Acute kidney injury Is this a current diagnosis for this admission?: Yes Plan: Likely due to initial prerenal azotemia which led to ischemic acute tubular necrosis due to persistent hypotension secondary to initial hypovolemia. Currently remains to be oligo anuric. There is no urgent need for renal replacement therapy today but if the patient continues to have worsening kidney function with oligo anuria, she might need renal replacement therapy in the next 48 hours. We will continue to closely monitor for now. Meanwhile due to observe clinical retention I will decrease the bicarb drip to 75 mL an hour and give another try of Lasix this time at 80 mg IV x1 dose. Discussed plan with Ron Rodriguez. (2) Acidosis, metabolic Is this a current diagnosis for this admission?: Yes Plan: Improved with bicarb drip. Continue the same. (3) Hyperkalemia, diminished renal excretion Is this a current diagnosis for this admission?: Yes Plan: Improved with few doses of Kayexalate and current bicarb drip. (4) UTI (urinary tract infection) Qualifiers: Urinary tract infection type: acute cystitis Is this a current diagnosis for this admission?: Yes Plan: On IV ceftriaxone per cnc manager. (5) Hypotension Qualifiers: Hypotension type: unspecified hypotension type Qualified Code(s): I95.9 - Hypotension, unspecified Is this a current diagnosis for this admission?: Yes Plan: Being weaned off the Levoped. (6) Anemia Qualifiers: Anemia type: other cause Is this a current diagnosis for this admission?: Yes - Time Time with patient: 15-25 minutes
[2019-07-04 04:22] LABS: ANION GAP 10 (5-19); BLOOD UREA NITROGEN 70 mg/dL (7-20); CALCIUM 8.1 mg/dL (8.4-10.2); CARBON DIOXIDE 23 mmol/L (22-30); CHLORIDE 105 mmol/L (98-107); GLUCOSE 109 mg/dL (75-110); POTASSIUM 3.7 mmol/L (3.6-5.0)
[2019-07-04] MEDS: DEXTROSE 5%-WATER 1000 ML 1,000 ML with SODIUM BICARBONATE 150 MEQ IV PRN ×2 (05:27)
[2019-07-04] MEDS: HEPARIN SOD (PORCINE) 5,000 UNIT/ML 1 ML VIAL SUBCUT SCH ×3 (05:27→22:14)
[2019-07-04] MEDS: CEFTRIAXONE 1 GM/D5W RTU 1 GM/50 ML RTUPB IV SCH (09:40)
[2019-07-04] MEDS: NORMAL SALINE 1000 ML 1,000 ML IV PRN ×2 (09:40→22:43)
--- NOTE | 2019-07-04 10:07 | PDOC CRITICAL CARE PROG REPORT ---
General Date:: 07/04/19 ICU Day:: 3 Hospital Day:: 3 Resuscitation Status: Full Code Events in the past 12 to 24 Hours:: Off levophed. Beginning to make urine. Review of systems relevant to events:: Renal. Reason for ICU Addmission:: Acute Renal Failure, Dehydration. Need for levophed. Improving delirium - Medications: Medications reviewed and adjusted accordingly: Yes Vasopressors:: None Sedation:: None Physical Exam Vital Signs: Temp Pulse Resp BP Pulse Ox 98.2 F 69 13 111/67 98 07/04/19 08:00 07/04/19 08:00 07/04/19 08:00 07/04/19 08:00 07/04/19 08:00 Intake & Output 07/03/19 07/04/19 07/05/19 06:59 06:59 06:59 Intake Total 3050 2445 240 Output Total 200 660 140 Balance 2850 1785 100 Weight 103.6 kg 108.2 kg Weight/Height Weight 108.2 kg Height 5 ft 4 in General appearance: PRESENT: no acute distress, cooperative, obese Head exam: PRESENT: atraumatic, normocephalic Eye exam: PRESENT: conjunctiva pink, EOMI, PERRLA. ABSENT: scleral icterus Ear exam: PRESENT: normal external ear exam Mouth exam: PRESENT: moist, tongue midline Respiratory exam: PRESENT: clear to auscultation lele. ABSENT: rales, rhonchi, wheezes Cardiovascular exam: PRESENT: RRR. ABSENT: diastolic murmur, rubs, systolic murmur GI/Abdominal exam: PRESENT: normal bowel sounds, soft. ABSENT: distended, guarding, mass, organolmegaly, rebound, tenderness Rectal exam: PRESENT: deferred Gentrourinary exam: PRESENT: indwelling catheter Extremities exam: PRESENT: other - L heel in braun boot Neurological exam: PRESENT: alert, awake, oriented to person, oriented to time, oriented to situation, CN II-XII grossly intact Psychiatric exam: PRESENT: appropriate affect, normal mood. ABSENT: homicidal ideation, suicidal ideation Skin exam: PRESENT: other - Heel and sacral decubiti, both POA. Laboratory/Radiographs Laboratory Results: 07/02/19 05:32 07/04/19 03:56 07/03/19 07/04/19 18:40 03:56 Sodium 139.1 138.0 Potassium 3.9 3.7 Chloride 107 105 Carbon Dioxide 21 L 23 Anion Gap 11 10 BUN 74 H 70 H Creatinine 4.93 H 4.69 H Est GFR ( Amer) 11 L 11 L Glucose 138 H 109 Calcium 8.2 L 8.1 L 07/01/19 07:07 Blood Blood Culture - Final [place] Species No Aerobic Organisms 07/01/19 07/01/19 07/01/19 00:14 00:14 07:07 Creatine Kinase 33 Troponin I 0.014 < 0.012 NT-Pro-B Natriuret Pep 94883 H 07/01/19 07/02/19 23:42 05:32 Creatine Kinase Troponin I NT-Pro-B Natriuret Pep 9620 H 9700 H Impressions: Cervical Spine CT 07/01/19 01:02 IMPRESSION: 1. No acute findings of the cervical spine. Limitation. 2. Small patchy opacity-atelectasis partially imaged at the right lung apex. Similar pattern radiographs from April 2019. Recommend CR/CT surveillance including at 7-12 weeks following initiation of any clinically warranted therapy. Chest X-Ray 07/01/19 01:20 IMPRESSION: No evidence of active intrathoracic disease. If there is suspicion for focal bony injury, dedicated bone radiography of the area in question is advised. Pelvis X-Ray 07/01/19 01:20 IMPRESSION: No acute displaced fracture is identified. Head CT 07/01/19 06:54 IMPRESSION: Findings consistent with sequela from the prior area of hemorrhage from March 2019 in the right temporal lobe with no evidence to suggest new hemorrhage. Abdomen/Pelvis CT 07/01/19 06:58 IMPRESSION: 1. Bilateral pleural effusions with anasarca consistent with some volume overload and/or third spacing. 2. Bilateral lower lung opacities consistent with atelectasis and/or pneumonia. 3. Cholelithiasis. 4. Diverticulosis. 5. Otherwise stable exam. EKG: Now in NSR. All labs, radiographs, diagnostic studies and EKGs were personally reviewed: Yes In addition, reports of radiographic and diagnostic studies were read: Yes Assessment and Plan - Diagnosis (1) Acute renal failure Qualifiers: Acute renal failure type: with acute tubular necrosis Qualified Code(s): N17.0 - Acute kidney failure with tubular necrosis Is this a current diagnosis for this admission?: Yes Plan: Improving. Cr down. GFR not much changed. Bicarb changed to NS. (2) UTI (urinary tract infection) Qualifiers: Urinary tract infection type: acute cystitis Is this a current diagnosis for this admission?: Yes Plan: Culture clean, rocephin discontinued. (3) COPD (chronic obstructive pulmonary disease) Qualifiers: COPD type: unspecified COPD Qualified Code(s): J44.9 - Chronic obstructive pulmonary disease, unspecified Is this a current diagnosis for this admission?: No Plan: Inactive. (4) Diabetes mellitus type 2 in obese Is this a current diagnosis for this admission?: Yes Plan: Controlled. (5) Obesity (BMI 30-39.9) Is this a current diagnosis for this admission?: Yes Plan: Chronic (6) Acidosis, metabolic Is this a current diagnosis for this admission?: Yes Plan: Improved. (7) Hyperkalemia, diminished renal excretion Is this a current diagnosis for this admission?: Yes Plan: Resolved (8) Delirium due to another medical condition, acute, hypoactive Is this a current diagnosis for this admission?: Yes Plan: Resolved. Still sleepy. Plan Summary: Transfer to medical floor. Critical Time Critical Time (minutes): 30 Level of Care: MEDICAL Anticipated discharge: Home with Homehealth Within: Other -: 1. The care of a critical patient is a dynamic process. 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 The timeframe for treatments given in order is not necessarily the actual time these treatments may have been done. 2. This patient requires critical care secondary to ongoing requirements for therapy not offered or safe outside the critical care environment. Transfer to a lower level of care will result in altered life or limb morbidity and mortality. 3. Multidisciplinary rounds completed. 4. ABCDE bundle addressed.
[2019-07-04 18:03] LABS: ANION GAP 12 (5-19); BLOOD UREA NITROGEN 73 mg/dL (7-20); CALCIUM 8.3 mg/dL (8.4-10.2); CARBON DIOXIDE 22 mmol/L (22-30); CHLORIDE 105 mmol/L (98-107); GLUCOSE 115 mg/dL (75-110)
[2019-07-04] MEDS ORDERED: FUROSEMIDE INJ/PF 40 MG/4 ML SDV IV ONE (20:27)
--- NOTE | 2019-07-04 20:38 | PDOC PROGRESS REPORT ---
Subjective Progress Note for:: 07/04/19 Subjective:: I am seeing the patient today while she is sitting down on her bed and surprisingly more awake, talking and eating her breakfast. She looks much better than the last couple of days. She is off the levo fed and blood pressure has been acceptable. She has made about 660 mL of urine output after I gave her Lasix of 80 mg IV yesterday. However her fluid balance is still +1785 mL for the past 24 hours and approximately 10 L since admission. She does state that she felt better. Reason For Visit: ACUTE RENAL FAILURE,DEHYDRATION Physical Exam Vital Signs: Temp Pulse Resp BP Pulse Ox 98.2 F 69 13 111/67 98 07/04/19 08:00 07/04/19 08:00 07/04/19 08:00 07/04/19 08:00 07/04/19 08:00 Intake & Output 07/03/19 07/04/19 07/05/19 06:59 06:59 06:59 Intake Total 3050 2445 240 Output Total 200 660 140 Balance 2850 1785 100 Weight 103.6 kg 108.2 kg Exam: General appearance: PRESENT: no acute distress, cooperative, well-developed, well-nourished Head exam: PRESENT: atraumatic, normocephalic Eye exam: PRESENT: conjunctiva pale, PERRLA. ABSENT: scleral icterus Neck exam: ABSENT: JVD Respiratory exam: PRESENT: Normal breath sounds. ABSENT: crackles, rales, rhonchi, unlabored, wheezes Cardiovascular exam: PRESENT: Regular rate rhythm -+S1, +S2. ABSENT: diastolic murmur, systolic murmur GI/Abdominal exam: PRESENT: normal bowel sounds, soft. ABSENT: guarding, mass, tenderness Extremities exam: Slightly decreased upper extremity edema with bilateral grade 1 lower extremity pitting edema Neurological exam: PRESENT: alert, awake, oriented to person, place and time. Skin exam: PRESENT: dry, warm, Results Laboratory Results: 07/02/19 05:32 07/04/19 03:56 07/03/19 07/04/19 18:40 03:56 Sodium 139.1 138.0 Potassium 3.9 3.7 Chloride 107 105 Carbon Dioxide 21 L 23 Anion Gap 11 10 BUN 74 H 70 H Creatinine 4.93 H 4.69 H Est GFR ( Amer) 11 L 11 L Glucose 138 H 109 Calcium 8.2 L 8.1 L 07/01/19 07:07 Blood Blood Culture - Final [place] Species No Aerobic Organisms 07/01/19 07/01/19 07/01/19 00:14 00:14 07:07 Creatine Kinase 33 Troponin I 0.014 < 0.012 NT-Pro-B Natriuret Pep 74362 H 07/01/19 07/02/19 23:42 05:32 Creatine Kinase Troponin I NT-Pro-B Natriuret Pep 9620 H 9700 H Impressions: Cervical Spine CT 07/01/19 01:02 IMPRESSION: 1. No acute findings of the cervical spine. Limitation. 2. Small patchy opacity-atelectasis partially imaged at the right lung apex. Similar pattern radiographs from April 2019. Recommend CR/CT surveillance including at 7-12 weeks following initiation of any clinically warranted therapy. Chest X-Ray 07/01/19 01:20 IMPRESSION: No evidence of active intrathoracic disease. If there is suspicion for focal bony injury, dedicated bone radiography of the area in question is advised. Pelvis X-Ray 07/01/19 01:20 IMPRESSION: No acute displaced fracture is identified. Head CT 07/01/19 06:54 IMPRESSION: Findings consistent with sequela from the prior area of hemorrhage from March 2019 in the right temporal lobe with no evidence to suggest new hemorrhage. Abdomen/Pelvis CT 07/01/19 06:58 IMPRESSION: 1. Bilateral pleural effusions with anasarca consistent with some volume overload and/or third spacing. 2. Bilateral lower lung opacities consistent with atelectasis and/or pneumonia. 3. Cholelithiasis. 4. Diverticulosis. 5. Otherwise stable exam. Assessment & Plan - Diagnosis (1) Acute kidney injury Is this a current diagnosis for this admission?: Yes Plan: Likely due to initial prerenal azotemia which led to ischemic acute tubular necrosis due to persistent hypotension secondary to initial hypovolemia. Patient starts to have increasing urine output. There is also a slight improvement of her kidney function. These are all good signs of possible starting renal recovery. Due to this improvement I do not anticipate that the patient would require renal replacement therapy. We will continue to monitor kidney function though. Continue to monitor urine output as well. Depending on her urine output during the day I might try another dose of diuretics later today. (2) Acidosis, metabolic Is this a current diagnosis for this admission?: Yes Plan: Resolved. Will discontinue bicarb drip and change it to a maintenance normal saline at 75 mL an hour. (3) Hyperkalemia, diminished renal excretion Is this a current diagnosis for this admission?: Yes Plan: Resolved. 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 Urine culture though only showed lactobacillus and yeast but not [place]. (5) Hypotension Qualifiers: Hypotension type: unspecified hypotension type Qualified Code(s): I95.9 - Hypotension, unspecified Is this a current diagnosis for this admission?: Yes Plan: Currently off any pressors including levo fed since yesterday. Blood pressure has been holding up within acceptable limits. (6) Anemia Qualifiers: Anemia type: other cause Is this a current diagnosis for this admission?: Yes Plan: Slowly improving. - Time Time with patient: 15-25 minutes
[2019-07-05] MEDS: HEPARIN SOD (PORCINE) 5,000 UNIT/ML 1 ML VIAL SUBCUT SCH ×3 (06:15→21:04)
[2019-07-05] MEDS ORDERED: MIDAZOLAM 2 MG/2 ML INJ ONE (06:38)
[2019-07-05 06:46] LABS: ARTERIAL BLOOD BASE EXCESS -4.7 mmol/L; ARTERIAL BLOOD H2CO3 2.34 mmol/L (1.05-1.35); ARTERIAL BLOOD HCO3 25.5 mmol/L (20-24); ARTERIAL BLOOD O2 SATURATION 97.4 % (94-98); ARTERIAL BLOOD PO2 128.7 mmHg (80-100); ARTERIAL BLOOD TOTAL CO2 27.9 mmol/L (21-25)
[2019-07-05 06:47] LABS: ARTERIAL BLOOD FIO2 100%
[2019-07-05 06:48] LABS: ARTERIAL BLOOD PCO2 77.6 mmHg (35-45); ARTERIAL BLOOD PH 7.14 (7.35-7.45)
[2019-07-05 07:25] LABS: ABSOLUTE EOSINOPHILS # (AUTO) 0.1 10^3/uL (0.0-0.6); ABSOLUTE LYMPHOCYTES (AUTO) 0.5 10^3/uL (0.5-4.7); ABSOLUTE MONOCYTES (AUTO) 0.7 10^3/uL (0.1-1.4); ABSOLUTE NEUT (AUTO) 5.2 10^3/uL (1.7-8.2); BASOPHILS % (AUTO) 0.7 % (0-2); EOSINOPHILS % (AUTO) 0.8 % (0-6); HEMOGLOBIN 8.8 g/dL (12.0-15.5); LYMPHOCYTES % (AUTO) 7.3 % (13-45); MEAN CORPUSCULAR HEMOGLOBIN 30.2 pg (27.0-33.4); MEAN CORPUSCULAR HGB CONC 32.6 g/dL (32.0-36.0); MEAN CORPUSCULAR VOLUME 93 fl (80-97); PLATELET COUNT 234 10^3/uL (150-450); RED BLOOD COUNT 2.92 10^6/uL (3.72-5.28); RED CELL DISTRIBUTION WIDTH 17.2 % (11.5-14.0); SEGMENTED NEUTROPHILS % (AUTO) 80.2 % (42-78); TOTAL CELLS COUNTED % (AUTO) 100 %; WHITE BLOOD COUNT 6.4 10^3/uL (4.0-10.5)
--- NOTE | 2019-07-05 07:33 | PDOC CONSULTATION ---
Consultation Consult Date: 07/05/19 Attending physician:: RENAN LAZAR Provider Consulted: LICHA HANSEN History of Present Illness Admission Date/PCP: 07/01/19 03:33 RENAN LAZAR History of Present Illness: LEEANN FUNEZ is a 64 year old female transferred yesterday from the ICU to the medical service. She was initially admitted to the intensive care unit for renal failure, dehydration and delirium. She received Levophed when first admitted to the ICU but was then weaned off successfully with fluid resuscitation. Despite resuscitation, she developed MIGUEL with a significantly elevated BUN and creatinine. We treated her further with fluids, and treated her metabolic acidosis with sodium bicarbonate drip and supported her hyperkalemia with Kayexalate. Electrolytes have been normal over the past 36 hours. Bicarbonate drip was weaned off and Kayexalate discontinued yesterday. After transfer yesterday to the medicine floor, a rapid response was called this morning for mental status changes and respiratory distress. ABG obtained at the time I arrived showed a pH of 7.14, PCO2 77.6. The decision was made to intubate and 2 mg of Versed was administered. Patient began to wake up with bag mask ventilation. Knowing her history of fluid overload and being aware that her electrolytes were still normal, I decided to abort intubation and support her temporarily with BiPAP. We transferred her back to the intensive care unit for close observation. Past Medical History Cardiac Medical History: Reports: Congestive Heart Failure, Coronary Artery Disease, Myocardial Infarction, Hyperlipidema, Hypertension, Peripheral Vascular Disease Denies: Atrial Fibrillation Pulmonary Medical History: Reports: Bronchitis Denies: Asthma, Chronic Obstructive Pulmonary Disease (COPD), Pneumonia, Tuberculosis Neurological Medical History: Denies: Seizures Endocrine Medical History: Reports: Diabetes Mellitus Type 1, Diabetes Mellitus Type 2 Renal/ Medical History: Denies: End Stage Renal Disease Malignancy Medical History: GI Medical History: Reports: Diverticulitis - diverticulosis Denies: Gastroesophageal Reflux Disease, Hiatal Hernia Musculoskeltal Medical History: Denies: Arthritis Psychiatric Medical History: Denies: Bipolar Disorder, Depression Hematology: Denies: Anemia, Hemophilia, Sickle Cell Disease Infectious Medical History: Past Surgical History Past Surgical History: Reports: Coronary Artery Bypass Graft - May 16 2011, Tonsillectomy, Vascular Surgery Denies: Amputation, Appendectomy, Cardiac Catheterization, Section, Cholecystectomy, Hysterectomy, Mastectomy, Tubal Ligation Social History Smoking Status: Unknown if Ever Smoked Frequency of Alcohol Use: None Hx Recreational Drug Use: No Drugs: None Hx Prescription Drug Abuse: No - Advance Directive Resuscitation Status: Full Code Family History Family History: CAD, Hyperlipidemia, Hypertension, Reviewed & Not Pertinent Parental Family History Reviewed: No Children Family History Reviewed: No Sibling(s) Family History Reviewed.: No Medication/Allergy Home Medications: Amlodipine Besylate [Norvasc 10 mg Tablet] 10 mg PO DAILY 11/30/18 Ascorbic Acid [Vitamin C 500 mg Tablet] 500 mg PO DAILY 11/30/18 Atorvastatin Calcium [Lipitor 20 mg Tablet] 20 mg PO QHS 11/30/18 Docusate Sodium [Colace 100 mg Capsule] 100 mg PO BIDP PRN 11/30/18 Ferrous Sulfate [Feosol 325 mg Tablet] 325 mg PO DAILY 11/30/18 Furosemide [Lasix 20 mg Tablet] 20 mg PO BID 11/30/18 Gabapentin [Neurontin 300 mg Capsule] 300 mg PO Q8 01/06/19 Insulin Degludec [Tresiba Flextouch U-100] 40 unit SQ DAILY 01/06/19 Escitalopram Oxalate [Lexapro 10 mg Tablet] 10 mg PO QHS #30 tablet 03/01/19 Carvedilol [Coreg 12.5 mg Tablet] 12.5 mg PO Q12 04/13/19 Cholecalciferol (Vitamin D3) [Vitamin D3 1000 Unit Tablet] 2,000 unit PO DAILY 04/13/19 Dicyclomine HCl [Bentyl 10 mg Capsule] 10 mg PO ACHS 04/13/19 Famotidine [Pepcid] 20 mg PO BID 04/13/19 Hydralazine HCl 100 mg PO Q8 04/13/19 Ipratropium/Albuterol Sulfate [Duoneb 3 ml Ampul] 3 ml NEB RTQ6HP PRN 30 Days #60 vial.neb 04/20/19 Multivit,Tx with Iron,Minerals [Thera-M] 1 each PO DAILY 05/08/19 Olmesartan Medoxomil [Benicar] 20 mg PO DAILY 05/08/19 Sucralfate [Carafate 1 gm Tablet] 1 gm PO ACHS 05/08/19 Acetaminophen [Acetaminophen Extra Strength] 500 mg PO DAILYP PRN 07/01/19 Allergies/Adverse Reactions: pregabalin [From Lyrica] Allergy (Intermediate, Verified 07/03/19 07:18) RASH duloxetine Allergy (Verified 07/03/19 07:18) Physical Exam Vital Signs: Temp Pulse Resp BP Pulse Ox 98 F 75 17 139/52 H 98 07/05/19 00:00 07/05/19 02:00 07/05/19 00:00 07/05/19 00:00 07/05/19 06:30 Intake & Output 07/04/19 07/05/19 07/06/19 06:59 06:59 06:59 Intake Total 2565 1609 Output Total 1410 605 Balance 1155 1004 Weight 108.2 kg General appearance: PRESENT: obese, other - Ental status changes including lethargy. Poor respiratory effort. Head exam: PRESENT: atraumatic Eye exam: PRESENT: EOMI, PERRLA Ear exam: PRESENT: normal external ear exam Mouth exam: PRESENT: dry mucosa Neck exam: ABSENT: JVD Respiratory exam: PRESENT: accessory muscle use, decreased breath sounds. ABSENT: rales, wheezes Cardiovascular exam: PRESENT: RRR Pulses: PRESENT: normal carotid pulses, normal radial pulses, +2 pedal pulses bilateral Vascular exam: PRESENT: normal capillary refill GI/Abdominal exam: PRESENT: normal bowel sounds Neurological exam: PRESENT: altered. ABSENT: alert, awake Skin exam: PRESENT: normal color. ABSENT: abrasion, rash, skin tears Results Laboratory Results: 07/02/19 05:32 07/04/19 17:10 07/04/19 07/05/19 17:10 06:30 Carbonic Acid 2.34 H HCO3/H2CO3 Ratio 10:1 ABG pH 7.14 L* ABG pCO2 77.6 H* ABG pO2 128.7 H ABG HCO3 25.5 H ABG O2 Saturation 97.4 ABG Base Excess -4.7 FiO2 100% Sodium 138.7 Potassium 4.0 Chloride 105 Carbon Dioxide 22 Anion Gap 12 BUN 73 H Creatinine 4.21 H Est GFR ( Amer) 13 L Glucose 115 H Calcium 8.3 L 07/01/19 06:39 Palacio Catheter Urine Culture - Final Yeast, Not [place] Albicans Lactobacillus (Vaginal Kamryn) 07/01/19 07/01/19 07/01/19 00:14 00:14 07:07 Creatine Kinase 33 Troponin I 0.014 < 0.012 NT-Pro-B Natriuret Pep 12454 H 07/01/19 07/02/19 23:42 05:32 Creatine Kinase Troponin I NT-Pro-B Natriuret Pep 9620 H 9700 H Impressions: Cervical Spine CT 07/01/19 01:02 IMPRESSION: 1. No acute findings of the cervical spine. Limitation. 2. Small patchy opacity-atelectasis partially imaged at the right lung apex. Similar pattern radiographs from April 2019. Recommend CR/CT surveillance including at 7-12 weeks following initiation of any clinically warranted therapy. Chest X-Ray 07/01/19 01:20 IMPRESSION: No evidence of active intrathoracic disease. If there is suspicion for focal bony injury, dedicated bone radiography of the area in question is advised. Pelvis X-Ray 07/01/19 01:20 IMPRESSION: No acute displaced fracture is identified. Head CT 07/01/19 06:54 IMPRESSION: Findings consistent with sequela from the prior area of hemorrhage from March 2019 in the right temporal lobe with no evidence to suggest new hemorrhage. Abdomen/Pelvis CT 07/01/19 06:58 IMPRESSION: 1. Bilateral pleural effusions with anasarca consistent with some volume overload and/or third spacing. 2. Bilateral lower lung opacities consistent with atelectasis and/or pneumonia. 3. Cholelithiasis. 4. Diverticulosis. 5. Otherwise stable exam.
[2019-07-05 07:53] LABS: ANION GAP 10 (5-19); BLOOD UREA NITROGEN 71 mg/dL (7-20); CALCIUM 8.4 mg/dL (8.4-10.2); CARBON DIOXIDE 24 mmol/L (22-30); CHLORIDE 107 mmol/L (98-107); GLUCOSE 159 mg/dL (75-110); PHOSPHORUS 6.9 mg/dL (2.5-4.5); POTASSIUM 4.1 mmol/L (3.6-5.0)
[2019-07-05] MEDS ORDERED: MIDAZOLAM 2 MG/2 ML INJ IV ONE (08:00)
--- NOTE | 2019-07-05 08:01 | RADIOLOGY REPORT (SQ) ---
EXAM DESCRIPTION: X-ray single view chest. CLINICAL HISTORY: 64 years Female, Sudden hypoxic decompensation ? aspiration COMPARISON: 07/01/2019 and 05/08/2019 TECHNIQUE: Single portable x-ray view of the chest performed on 07/05/2019 7:33 AM FINDINGS: The lungs are relatively well expanded. There is patchy airspace disease in the right perihilar region and right lower lobe and possibly left lower lobe. Findings may be due to edema, aspiration or pneumonia. There is no evidence of a pneumothorax. The cardiac silhouette is stable and prominent. There are remote postsurgical changes of the mediastinum. The mediastinal contours are normal. No acute osseous abnormality is identified. No focal soft tissue abnormalities are seen. Lines and tubes: There are multiple overlying mangle press catcher leads. IMPRESSION: 1. Patchy airspace disease in the right perihilar region, right lower lobe and possibly left lower lobe. Findings may be due to edema, aspiration or pneumonia. 2. Stable prominence of the cardiac silhouette and remote postsurgical changes of the mediastinum.
[2019-07-05] MEDS ORDERED: ROCURONIUM BROMIDE INJ 50 MG/5 ML VIAL IV ONE (08:06)
[2019-07-05] MEDS ORDERED: FUROSEMIDE INJ/PF 40 MG/4 ML SDV IV ONE (08:30)
[2019-07-05 12:48] LABS: ARTERIAL BLOOD BASE EXCESS -0.8 mmol/L; ARTERIAL BLOOD H2CO3 1.81 mmol/L (1.05-1.35); ARTERIAL BLOOD HCO3 26.8 mmol/L (20-24); ARTERIAL BLOOD O2 SATURATION 88.4 % (94-98); ARTERIAL BLOOD PH 7.27 (7.35-7.45); ARTERIAL BLOOD PO2 62.9 mmHg (80-100); ARTERIAL BLOOD TOTAL CO2 28.7 mmol/L (21-25)
[2019-07-05 12:49] LABS: ARTERIAL BLOOD FIO2 50%
--- NOTE | 2019-07-05 14:20 | PDOC CRITICAL CARE PROG REPORT ---
General Date:: 07/05/19 ICU Day:: 1 Hospital Day:: 4 Resuscitation Status: Full Code Events in the past 12 to 24 Hours:: Probable aspiration Review of systems relevant to events:: Pulmonary, renal. Reason for ICU Addmission:: Acute Renal Failure, Dehydration. Need for levophed. Improving delirium - Medications: Medications reviewed and adjusted accordingly: Yes Vasopressors:: Levophed off. Sedation:: None Physical Exam Vital Signs: Temp Pulse Resp BP Pulse Ox 96.7 F L 66 13 154/84 H 100 07/05/19 12:00 07/05/19 12:00 07/05/19 12:00 07/05/19 12:00 07/05/19 12:00 Intake & Output 07/04/19 07/05/19 07/06/19 06:59 06:59 06:59 Intake Total 2565 1609 671 Output Total 1410 605 670 Balance 1155 1004 1 Weight 108.2 kg Weight/Height Weight 108.2 kg Height 5 ft 4 in General appearance: PRESENT: no acute distress, obese Head exam: PRESENT: atraumatic, normocephalic Eye exam: PRESENT: conjunctiva pink, EOMI, PERRLA. ABSENT: scleral icterus Ear exam: PRESENT: normal external ear exam Mouth exam: PRESENT: moist, tongue midline Respiratory exam: PRESENT: rhonchi, unlabored Cardiovascular exam: PRESENT: RRR. ABSENT: diastolic murmur, rubs, systolic murmur GI/Abdominal exam: PRESENT: normal bowel sounds, soft. ABSENT: distended, guarding, mass, organolmegaly, rebound, tenderness Rectal exam: PRESENT: deferred Gentrourinary exam: PRESENT: indwelling catheter Extremities exam: PRESENT: full ROM, other - heel ulcer on L. ABSENT: calf tenderness, clubbing, pedal edema Neurological exam: PRESENT: altered, other - Sleepy but arousable. Skin exam: PRESENT: other - Heel ulcer and decubitus. Laboratory/Radiographs Laboratory Results: 07/05/19 07:15 07/05/19 07:15 07/04/19 07/05/19 07/05/19 17:10 06:30 07:15 WBC 6.4 RBC 2.92 L Hgb 8.8 L Hct 27.0 L MCV 93 MCH 30.2 MCHC 32.6 RDW 17.2 H Plt Count 234 Seg Neutrophils % 80.2 H Carbonic Acid 2.34 H HCO3/H2CO3 Ratio 10:1 ABG pH 7.14 L* ABG pCO2 77.6 H* ABG pO2 128.7 H ABG HCO3 25.5 H ABG O2 Saturation 97.4 ABG Base Excess -4.7 FiO2 100% Sodium 138.7 Potassium 4.0 Chloride 105 Carbon Dioxide 22 Anion Gap 12 BUN 73 H Creatinine 4.21 H Est GFR ( Amer) 13 L Glucose 115 H Calcium 8.3 L Phosphorus Magnesium Albumin 07/05/19 07/05/19 07:15 12:05 WBC RBC Hgb Hct MCV MCH MCHC RDW Plt Count Seg Neutrophils % Carbonic Acid 1.81 H HCO3/H2CO3 Ratio 14:1 ABG pH 7.27 L ABG pCO2 60.0 H ABG pO2 62.9 L ABG HCO3 26.8 H ABG O2 Saturation 88.4 L ABG Base Excess -0.8 FiO2 50% Sodium 140.7 Potassium 4.1 Chloride 107 Carbon Dioxide 24 Anion Gap 10 BUN 71 H Creatinine 4.16 H Est GFR ( Amer) 13 L Glucose 159 H Calcium 8.4 Phosphorus 6.9 H Magnesium 2.5 H Albumin 3.0 L 07/01/19 06:39 Palacio Catheter Urine Culture - Final Yeast, Not Italia Albicans Lactobacillus (Vaginal Kamryn) 07/01/19 07/01/19 07/01/19 00:14 00:14 07:07 Creatine Kinase 33 Troponin I 0.014 < 0.012 NT-Pro-B Natriuret Pep 39417 H 07/01/19 07/02/19 23:42 05:32 Creatine Kinase Troponin I NT-Pro-B Natriuret Pep 9620 H 9700 H Impressions: Cervical Spine CT 07/01/19 01:02 IMPRESSION: 1. No acute findings of the cervical spine. Limitation. 2. Small patchy opacity-atelectasis partially imaged at the right lung apex. Similar pattern radiographs from April 2019. Recommend CR/CT surveillance including at 7-12 weeks following initiation of any clinically warranted therapy. Pelvis X-Ray 07/01/19 01:20 IMPRESSION: No acute displaced fracture is identified. Head CT 07/01/19 06:54 IMPRESSION: Findings consistent with sequela from the prior area of hemorrhage from March 2019 in the right temporal lobe with no evidence to suggest new hemorrhage. Abdomen/Pelvis CT 07/01/19 06:58 IMPRESSION: 1. Bilateral pleural effusions with anasarca consistent with some volume overload and/or third spacing. 2. Bilateral lower lung opacities consistent with atelectasis and/or pneumonia. 3. Cholelithiasis. 4. Diverticulosis. 5. Otherwise stable exam. Chest X-Ray 07/05/19 00:00 IMPRESSION: 1. Patchy airspace disease in the right perihilar region, right lower lobe and possibly left lower lobe. Findings may be due to edema, aspiration or pneumonia. 2. Stable prominence of the cardiac silhouette and remote postsurgical changes of the mediastinum. EKG: SR All labs, radiographs, diagnostic studies and EKGs were personally reviewed: Yes In addition, reports of radiographic and diagnostic studies were read: Yes Assessment and Plan - Diagnosis (1) Acute renal failure Qualifiers: Acute renal failure type: with acute tubular necrosis Qualified Code(s): N17.0 - Acute kidney failure with tubular necrosis Is this a current diagnosis for this admission?: Yes Plan: She is making urine. Not acidotic or hyperkalemic (2) UTI (urinary tract infection) Qualifiers: Urinary tract infection type: acute cystitis Is this a current diagnosis for this admission?: Yes Plan: Only yeast. (3) COPD (chronic obstructive pulmonary disease) Qualifiers: COPD type: unspecified COPD Qualified Code(s): J44.9 - Chronic obstructive pulmonary disease, unspecified Is this a current diagnosis for this admission?: Yes Plan: This may now be affecting her as she has been hypercarbic but is improving.Not in need of intubation. (4) Diabetes mellitus type 2 in obese Is this a current diagnosis for this admission?: Yes Plan: controlled (5) Obesity (BMI 30-39.9) Is this a current diagnosis for this admission?: Yes Plan: Chronic (6) Acidosis, metabolic Is this a current diagnosis for this admission?: Yes Plan: Resolved. (7) Hyperkalemia, diminished renal excretion Is this a current diagnosis for this admission?: Yes Plan: Resolved (8) Delirium due to another medical condition, acute, hypoactive Is this a current diagnosis for this admission?: Yes Plan: Her initial delirium resolved now she has a second hypoactive delirium likely from aspiration. (9) Aspiration into lower respiratory tract Qualifiers: Encounter type: initial encounter Qualified Code(s): T17.800A - Unspecified foreign body in other parts of respiratory tract causing asphyxiation, initial encounter Is this a current diagnosis for this admission?: Yes Plan: She has na new R sided infiltrate and likely has aspirated. (10) Hypercapnic respiratory failure Qualifiers: Chronicity: acute Qualified Code(s): J96.02 - Acute respiratory failure with hypercapnia Is this a current diagnosis for this admission?: Yes Plan: This is likely a consequence of aspiration and COPD.No antibiotics. Improved on bipap. Plan Summary: Continue bipap until more awake. Critical Time Critical Time (minutes): 35 Level of Care: ICU Anticipated discharge: SNF Within: Other -: 1. The care of a critical patient is a dynamic process. This note is a event representative synopsis but static in nature. The timeframe for treatments given in order is not necessarily the actual time these treatments may have been done. 2. This patient requires critical care secondary to ongoing requirements for therapy not offered or safe outside the critical care environment. Transfer to a lower level of care will result in altered life or limb morbidity and mortality. 3. Multidisciplinary rounds completed. 4. ABCDE bundle addressed.
--- NOTE | 2019-07-05 23:01 | PDOC PROGRESS REPORT ---
Subjective Progress Note for:: 07/05/19 Subjective:: Patient was doing well yesterday. She was transferred out of the ICU. Apparently this morning MANAGER BUSINESS MANAGEMENT was called because the patient deteriorated mentally and was found to be in impending respiratory failure. She was placed on BiPAP and transferred back here in the ICU. When I saw her this morning she is quite lethargic, which different from what I have seen yesterday. She barely answered any questions. She made about 605 mL of urine yesterday. Her repeat x-ray showed airspace disease in the right perihilar region, right lower lobe, left lower lobe may be due to edema, aspiration or pneumonia. Reason For Visit: ACUTE RENAL FAILURE,DEHYDRATION Physical Exam Vital Signs: Temp Pulse Resp BP Pulse Ox 97.4 F 67 10 L 154/84 H 93 07/05/19 08:00 07/05/19 10:00 07/05/19 10:02 07/05/19 10:02 07/05/19 10:00 Intake & Output 07/04/19 07/05/19 07/06/19 06:59 06:59 06:59 Intake Total 2565 1609 Output Total 1410 605 220 Balance 1155 1004 -220 Weight 108.2 kg Exam: General appearance: PRESENT: Currently on BiPAP and lethargic. Head exam: PRESENT: atraumatic, normocephalic Eye exam: PRESENT: conjunctiva pale, PERRLA. ABSENT: scleral icterus Neck exam: ABSENT: JVD Respiratory exam: PRESENT: Normal breath sounds. ABSENT: crackles, rales, rhonchi, unlabored, wheezes Cardiovascular exam: PRESENT: Regular rate rhythm -+S1, +S2. ABSENT: diastolic murmur, systolic murmur GI/Abdominal exam: PRESENT: normal bowel sounds, soft. ABSENT: guarding, mass, tenderness Extremities exam: Bilateral upper extremity edema and grade 1 bilateral lower extremity pitting edema Neurological exam: PRESENT: Lethargic. Skin exam: PRESENT: dry, warm, Results Laboratory Results: 07/05/19 07:15 07/05/19 07:15 07/04/19 07/05/19 07/05/19 17:10 06:30 07:15 WBC 6.4 RBC 2.92 L Hgb 8.8 L Hct 27.0 L MCV 93 MCH 30.2 MCHC 32.6 RDW 17.2 H Plt Count 234 Seg Neutrophils % 80.2 H Carbonic Acid 2.34 H HCO3/H2CO3 Ratio 10:1 ABG pH 7.14 L* ABG pCO2 77.6 H* ABG pO2 128.7 H ABG HCO3 25.5 H ABG O2 Saturation 97.4 ABG Base Excess -4.7 FiO2 100% Sodium 138.7 Potassium 4.0 Chloride 105 Carbon Dioxide 22 Anion Gap 12 BUN 73 H Creatinine 4.21 H Est GFR ( Amer) 13 L Glucose 115 H Calcium 8.3 L Phosphorus Magnesium Albumin 07/05/19 07:15 WBC RBC Hgb Hct MCV MCH MCHC RDW Plt Count Seg Neutrophils % Carbonic Acid HCO3/H2CO3 Ratio ABG pH ABG pCO2 ABG pO2 ABG HCO3 ABG O2 Saturation ABG Base Excess FiO2 Sodium 140.7 Potassium 4.1 Chloride 107 Carbon Dioxide 24 Anion Gap 10 BUN 71 H Creatinine 4.16 H Est GFR ( Amer) 13 L Glucose 159 H Calcium 8.4 Phosphorus 6.9 H Magnesium 2.5 H Albumin 3.0 L 07/01/19 06:39 Palacio Catheter Urine Culture - Final Yeast, Not [place] Albicans Lactobacillus (Vaginal Kamryn) 07/01/19 07/01/19 07/01/19 00:14 00:14 07:07 Creatine Kinase 33 Troponin I 0.014 < 0.012 NT-Pro-B Natriuret Pep 57716 H 07/01/19 07/02/19 23:42 05:32 Creatine Kinase Troponin I NT-Pro-B Natriuret Pep 9620 H 9700 H Impressions: Cervical Spine CT 07/01/19 01:02 IMPRESSION: 1. No acute findings of the cervical spine. Limitation. 2. Small patchy opacity-atelectasis partially imaged at the right lung apex. Similar pattern radiographs from April 2019. Recommend CR/CT surveillance including at 7-12 weeks following initiation of any clinically warranted therapy. Pelvis X-Ray 07/01/19 01:20 IMPRESSION: No acute displaced fracture is identified. Head CT 07/01/19 06:54 IMPRESSION: Findings consistent with sequela from the prior area of hemorrhage from March 2019 in the right temporal lobe with no evidence to suggest new hemorrhage. Abdomen/Pelvis CT 07/01/19 06:58 IMPRESSION: 1. Bilateral pleural effusions with anasarca consistent with some volume overload and/or third spacing. 2. Bilateral lower lung opacities consistent with atelectasis and/or pneumonia. 3. Cholelithiasis. 4. Diverticulosis. 5. Otherwise stable exam. Chest X-Ray 07/05/19 00:00 IMPRESSION: 1. Patchy airspace disease in the right perihilar region, right lower lobe and possibly left lower lobe. Findings may be due to edema, aspiration or pneumonia. 2. Stable prominence of the cardiac silhouette and remote postsurgical changes of the mediastinum. Assessment & Plan - Diagnosis (1) Acute kidney injury Is this a current diagnosis for this admission?: Yes Plan: Likely due to initial prerenal azotemia which led to ischemic acute tubular necrosis due to persistent hypotension secondary to initial hypovolemia. Dorothy herron's kidney function is slightly decreased compared to the previous day. Her kidney function is showing improvement of kidney function without dialysis. Patient is clinically retaining fluid. Agree with giving the patient Lasix this morning per mold filler plastic dolls. There is no indication for renal replacement therapy today. (2) Hypercapnic respiratory failure Qualifiers: Chronicity: acute Qualified Code(s): J96.02 - Acute respiratory failure with hypercapnia Is this a current diagnosis for this admission?: Yes Plan: Defer to mold filler plastic dolls. (3) Aspiration into lower respiratory tract Qualifiers: Encounter type: initial encounter Qualified Code(s): T17.800A - Unspecified foreign body in other parts of respiratory tract causing asphyxiation, initial encounter Is this a current diagnosis for this admission?: Yes (4) Acidosis, metabolic Is this a current diagnosis for this admission?: Yes Plan: Resolved. (5) Hyperkalemia, diminished renal excretion Is this a current diagnosis for this admission?: Yes Plan: Resolved. (6) UTI (urinary tract infection) Qualifiers: Urinary tract infection type: acute cystitis Is this a current diagnosis for this admission?: Yes Plan: On IV ceftriaxone per mold filler plastic dolls. Urine culture though only showed lactobacillus and yeast but not Italia. (7) Hypotension Qualifiers: Hypotension type: unspecified hypotension type Qualified Code(s): I95.9 - Hypotension, unspecified Is this a current diagnosis for this admission?: Yes Plan: Currently off any pressors including levo fed since yesterday. Blood pressure has been holding up within acceptable limits. (8) Anemia Qualifiers: Anemia type: other cause Is this a current diagnosis for this admission?: Yes - Time Time with patient: 15-25 minutes
[2019-07-06 05:00] LABS: ABSOLUTE EOSINOPHILS # (AUTO) 0.2 10^3/uL (0.0-0.6); ABSOLUTE LYMPHOCYTES (AUTO) 0.9 10^3/uL (0.5-4.7); ABSOLUTE MONOCYTES (AUTO) 0.8 10^3/uL (0.1-1.4); ABSOLUTE NEUT (AUTO) 4.2 10^3/uL (1.7-8.2); BASOPHILS % (AUTO) 0.3 % (0-2); EOSINOPHILS % (AUTO) 2.6 % (0-6); HEMATOCRIT 25.4 % (36.0-47.0); HEMOGLOBIN 8.4 g/dL (12.0-15.5); LYMPHOCYTES % (AUTO) 14.3 % (13-45); MEAN CORPUSCULAR HEMOGLOBIN 30.4 pg (27.0-33.4); MEAN CORPUSCULAR HGB CONC 32.8 g/dL (32.0-36.0); MEAN CORPUSCULAR VOLUME 92 fl (80-97); MONOCYTES % (AUTO) 13.2 % (3-13); PLATELET COUNT 225 10^3/uL (150-450); RED BLOOD COUNT 2.75 10^6/uL (3.72-5.28); RED CELL DISTRIBUTION WIDTH 17.2 % (11.5-14.0); SEGMENTED NEUTROPHILS % (AUTO) 69.6 % (42-78); TOTAL CELLS COUNTED % (AUTO) 100 %
[2019-07-06 05:14] LABS: ANION GAP 7 (5-19); BLOOD UREA NITROGEN 70 mg/dL (7-20); CALCIUM 8.7 mg/dL (8.4-10.2); CARBON DIOXIDE 26 mmol/L (22-30); CHLORIDE 107 mmol/L (98-107); GLUCOSE 127 mg/dL (75-110); POTASSIUM 3.9 mmol/L (3.6-5.0)
[2019-07-06] MEDS: HEPARIN SOD (PORCINE) 5,000 UNIT/ML 1 ML VIAL SUBCUT SCH ×3 (05:23→21:10)
--- NOTE | 2019-07-06 08:09 | PDOC CRITICAL CARE PROG REPORT ---
General Date:: 07/06/19 ICU Day:: 2 Hospital Day:: 4 Resuscitation Status: Full Code Events in the past 12 to 24 Hours:: Much more awake. Kidney function better. Reason for ICU Addmission:: ARF improving. Does not need ICU level opf care. - Medications: Medications reviewed and adjusted accordingly: Yes Vasopressors:: None Sedation:: None Physical Exam Vital Signs: Temp Pulse Resp BP Pulse Ox 97.8 F 68 5 L 129/65 H 100 07/06/19 05:52 07/05/19 19:00 07/06/19 07:03 07/06/19 07:03 07/06/19 07:03 Intake & Output 07/05/19 07/06/19 07/07/19 06:59 06:59 06:59 Intake Total 1609 1121 Output Total 605 3025 Balance 1004 -1904 Weight 104.3 kg Weight/Height Weight 104.3 kg Height 5 ft 4 in General appearance: PRESENT: no acute distress, cooperative, obese Head exam: PRESENT: atraumatic, normocephalic Eye exam: PRESENT: conjunctiva pink, EOMI, PERRLA. ABSENT: scleral icterus Ear exam: PRESENT: normal external ear exam Mouth exam: PRESENT: moist, tongue midline Respiratory exam: PRESENT: clear to auscultation lele, decreased breath sounds. ABSENT: rales, rhonchi, wheezes Cardiovascular exam: PRESENT: RRR. ABSENT: diastolic murmur, rubs, systolic murmur GI/Abdominal exam: PRESENT: normal bowel sounds, soft. ABSENT: distended, guarding, mass, organolmegaly, rebound, tenderness Rectal exam: PRESENT: deferred Gentrourinary exam: PRESENT: indwelling catheter Extremities exam: PRESENT: full ROM, +1 edema, other - L heel ulcer-clean.. ABSENT: calf tenderness, clubbing, pedal edema Musculoskeletal exam: PRESENT: full ROM Neurological exam: PRESENT: alert, awake, oriented to person, oriented to place, oriented to time, oriented to situation, CN II-XII grossly intact. ABSENT: motor sensory deficit Psychiatric exam: PRESENT: appropriate affect, normal mood. ABSENT: homicidal ideation, suicidal ideation Skin exam: PRESENT: other - L heel ulcer and sacral decubitus Laboratory/Radiographs Laboratory Results: 07/06/19 04:12 07/06/19 04:12 07/05/19 07/05/19 07/06/19 07:15 12:05 04:12 WBC 6.0 RBC 2.75 L Hgb 8.4 L Hct 25.4 L MCV 92 MCH 30.4 MCHC 32.8 RDW 17.2 H Plt Count 225 Seg Neutrophils % 69.6 Carbonic Acid 1.81 H HCO3/H2CO3 Ratio 14:1 ABG pH 7.27 L ABG pCO2 60.0 H ABG pO2 62.9 L ABG HCO3 26.8 H ABG O2 Saturation 88.4 L ABG Base Excess -0.8 FiO2 50% Sodium 140.7 Potassium 4.1 Chloride 107 Carbon Dioxide 24 Anion Gap 10 BUN 71 H Creatinine 4.16 H Est GFR ( Amer) 13 L Glucose 159 H Calcium 8.4 Phosphorus 6.9 H Magnesium 2.5 H Albumin 3.0 L 07/06/19 04:12 WBC RBC Hgb Hct MCV MCH MCHC RDW Plt Count Seg Neutrophils % Carbonic Acid HCO3/H2CO3 Ratio ABG pH ABG pCO2 ABG pO2 ABG HCO3 ABG O2 Saturation ABG Base Excess FiO2 Sodium 140.1 Potassium 3.9 Chloride 107 Carbon Dioxide 26 Anion Gap 7 BUN 70 H Creatinine 3.33 H Est GFR ( Amer) 17 L Glucose 127 H Calcium 8.7 Phosphorus Magnesium Albumin 07/01/19 07/01/19 07/01/19 00:14 00:14 07:07 Creatine Kinase 33 Troponin I 0.014 < 0.012 NT-Pro-B Natriuret Pep [id number] H 07/01/19 07/02/19 23:42 05:32 Creatine Kinase Troponin I NT-Pro-B Natriuret Pep 9620 H 9700 H Impressions: Cervical Spine CT 07/01/19 01:02 IMPRESSION: 1. No acute findings of the cervical spine. Limitation. 2. Small patchy opacity-atelectasis partially imaged at the right lung apex. Similar pattern radiographs from April 2019. Recommend CR/CT surveillance including at 7-12 weeks following initiation of any clinically warranted therapy. Pelvis X-Ray 07/01/19 01:20 IMPRESSION: No acute displaced fracture is identified. Head CT 07/01/19 06:54 IMPRESSION: Findings consistent with sequela from the prior area of hemorrhage from March 2019 in the right temporal lobe with no evidence to suggest new hemorrhage. Abdomen/Pelvis CT 07/01/19 06:58 IMPRESSION: 1. Bilateral pleural effusions with anasarca consistent with some volume overload and/or third spacing. 2. Bilateral lower lung opacities consistent with atelectasis and/or pneumonia. 3. Cholelithiasis. 4. Diverticulosis. 5. Otherwise stable exam. Chest X-Ray 07/05/19 00:00 IMPRESSION: 1. Patchy airspace disease in the right perihilar region, right lower lobe and possibly left lower lobe. Findings may be due to edema, aspiration or pneumonia. 2. Stable prominence of the cardiac silhouette and remote postsurgical changes of the mediastinum. All labs, radiographs, diagnostic studies and EKGs were personally reviewed: Yes In addition, reports of radiographic and diagnostic studies were read: Yes Assessment and Plan - Diagnosis (1) Acute renal failure Qualifiers: Acute renal failure type: with acute tubular necrosis Qualified Code(s): N17.0 - Acute kidney failure with tubular necrosis Is this a current diagnosis for this admission?: Yes Plan: Lower dose of lasix. 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 2L yesterday with 80mg lasix. Try 40 today. (2) UTI (urinary tract infection) Qualifiers: Urinary tract infection type: acute cystitis Is this a current diagnosis for this admission?: Yes Plan: Yeast noted. Will start diflucan. (3) COPD (chronic obstructive pulmonary disease) Qualifiers: COPD type: unspecified COPD Qualified Code(s): J44.9 - Chronic obstructive pulmonary disease, unspecified Is this a current diagnosis for this admission?: Yes Plan: Inactive. (4) Diabetes mellitus type 2 in obese Is this a current diagnosis for this admission?: Yes Plan: Controlled (5) Obesity (BMI 30-39.9) Is this a current diagnosis for this admission?: Yes Plan: Chronic and impeding mobilization. (6) Acidosis, metabolic Is this a current diagnosis for this admission?: Yes Plan: Resolved (7) Hyperkalemia, diminished renal excretion Is this a current diagnosis for this admission?: Yes Plan: Resolved (8) Delirium due to another medical condition, acute, hypoactive Is this a current diagnosis for this admission?: Yes Plan: Resolved, likely secondary to aspiration and hypercarbia. (9) Aspiration into lower respiratory tract Qualifiers: Encounter type: initial encounter Qualified Code(s): T17.800A - Unspecified foreign body in other parts of respiratory tract causing asphyxiation, initial encounter Is this a current diagnosis for this admission?: Yes Plan: This is likely chronic and worsened when she is hypercapnic and obtunded. Right now seems to be resolved (10) Hypercapnic respiratory failure Qualifiers: Chronicity: acute Qualified Code(s): J96.02 - Acute respiratory failure with hypercapnia Is this a current diagnosis for this admission?: Yes Plan: Resolved Plan Summary: At this point she does not meet ICU criteria. Critical Time Critical Time (minutes): 30 Level of Care: MEDICAL Anticipated discharge: Home with Homehealth Within: Other -: 1. The care of a critical patient is a dynamic process. This note is a welding equipment sales representative synopsis but static in nature. The timeframe for treatments given in order is not necessarily the actual time these treatments may have been done. 2. This patient requires critical care secondary to ongoing requirements for therapy not offered or safe outside the critical care environment. Transfer to a lower level of care will result in altered life or limb morbidity and mortality. 3. Multidisciplinary rounds completed. 4. ABCDE bundle addressed.
[2019-07-06] MEDS ORDERED: FUROSEMIDE INJ/PF 40 MG/4 ML SDV IV ONE (09:00)
[2019-07-06] MEDS: FLUCONAZOLE 100 MG TABLET PO SCH (09:07)
[2019-07-06] MEDS ORDERED: IPRATROPIUM/ALBUTEROL 0.5-2.5 MG/3 ML AMPUL NEB PRN (10:30)
[2019-07-06] MEDS ORDERED: (PENDING PHARMACY ID) (Acetaminophen [Acetaminophen Extra Strength] 500 MG) PO PRN (10:30)
[2019-07-06] MEDS: DICYCLOMINE HCL 10 MG CAPSULE PO SCH ×3 (11:47→21:10)
[2019-07-06] MEDS: CHOLECALCIFEROL (D3) 1,000 UNIT (25 MCG) TABLET PO SCH (11:47)
[2019-07-06] MEDS: ASCORBIC ACID 500 MG TABLET PO SCH (11:48)
[2019-07-06] MEDS: FUROSEMIDE 20 MG TABLET PO SCH ×2 (11:48→17:06)
[2019-07-06] MEDS: SUCRALFATE 1 GM TABLET PO SCH ×3 (11:48→21:10)
[2019-07-06] MEDS: CARVEDILOL 12.5 MG TABLET PO SCH ×2 (11:48→21:10)
[2019-07-06] MEDS: FAMOTIDINE 20 MG TABLET PO SCH ×2 (11:48→17:07)
[2019-07-06] MEDS: DOCUSATE SODIUM 100 MG CAPSULE PO PRN (17:08)
[2019-07-06] MEDS: ESCITALOPRAM OXALATE 10 MG TABLET PO SCH (21:10)
[2019-07-06] MEDS: ACETAMINOPHEN 325 MG TABLET PO PRN (23:41)
[2019-07-07 04:30] LABS: ANION GAP 6 (5-19); BLOOD UREA NITROGEN 68 mg/dL (7-20); CALCIUM 8.6 mg/dL (8.4-10.2); CARBON DIOXIDE 26 mmol/L (22-30); CHLORIDE 108 mmol/L (98-107); GLUCOSE 111 mg/dL (75-110); POTASSIUM 3.9 mmol/L (3.6-5.0)
[2019-07-07] MEDS: HEPARIN SOD (PORCINE) 5,000 UNIT/ML 1 ML VIAL SUBCUT SCH ×3 (05:49→21:30)
[2019-07-07] MEDS: DICYCLOMINE HCL 10 MG CAPSULE PO SCH (09:01)
[2019-07-07] MEDS: FAMOTIDINE 20 MG TABLET PO SCH ×2 (09:02→17:09)
[2019-07-07] MEDS: SUCRALFATE 1 GM TABLET PO SCH ×4 (09:02→21:30)
[2019-07-07] MEDS: ASCORBIC ACID 500 MG TABLET PO SCH (09:02)
[2019-07-07] MEDS: CHOLECALCIFEROL (D3) 1,000 UNIT (25 MCG) TABLET PO SCH (09:03)
[2019-07-07] MEDS: CARVEDILOL 12.5 MG TABLET PO SCH ×2 (09:03→21:30)
[2019-07-07] MEDS: FUROSEMIDE 20 MG TABLET PO SCH ×2 (09:03→17:09)
[2019-07-07] MEDS: FLUCONAZOLE 100 MG TABLET PO SCH (09:03)
[2019-07-07 09:37] LABS: ARTERIAL BLOOD FIO2 2L; ARTERIAL BLOOD H2CO3 1.74 mmol/L (1.05-1.35); ARTERIAL BLOOD HCO3 29.9 mmol/L (20-24); ARTERIAL BLOOD O2 SATURATION 79.4 % (94-98); ARTERIAL BLOOD PCO2 57.8 mmHg (35-45); ARTERIAL BLOOD PH 7.33 (7.35-7.45); ARTERIAL BLOOD PO2 47.3 mmHg (80-100); ARTERIAL BLOOD TOTAL CO2 31.6 mmol/L (21-25)
[2019-07-07] MEDS ORDERED: MULTIVIT TX WITH IRON MINERALS PO SCH (10:00)
[2019-07-07] MEDS ORDERED: (PENDING PHARMACY ID) (Olmesartan Medoxomil [Benicar] 20 MG) PO SCH (10:00)
--- NOTE | 2019-07-07 10:06 | PDOC CRITICAL CARE PROG REPORT ---
General Date:: 07/07/19 ICU Day:: 2 Hospital Day:: 6 Resuscitation Status: Full Code Events in the past 12 to 24 Hours:: Developed dizziness, likely vertigo. Review of systems relevant to events:: Neurological, pulmonary, renal. Reason for ICU Addmission:: ARF improving. Does not need ICU level of care. - Medications: Medications reviewed and adjusted accordingly: Yes Vasopressors:: None Sedation:: None Physical Exam Vital Signs: Temp Pulse Resp BP Pulse Ox 98.6 F 58 L 11 L 110/56 L 91 L 07/07/19 06:00 07/07/19 08:08 07/07/19 09:04 07/07/19 09:04 07/07/19 09:04 Intake & Output 07/06/19 07/07/19 07/08/19 06:59 06:59 06:59 Intake Total 1121 1050 Output Total 3025 950 Balance -1904 100 Weight 104.3 kg 106.5 kg Weight/Height Weight 106.5 kg Height 5 ft 4 in General appearance: PRESENT: no acute distress, cooperative, obese Head exam: PRESENT: atraumatic, normocephalic Eye exam: PRESENT: EOMI, nystagmus, PERRLA, other - Horizontal nystagmus Ear exam: PRESENT: normal external ear exam Mouth exam: PRESENT: moist, tongue midline Respiratory exam: PRESENT: clear to auscultation lele, decreased breath sounds. ABSENT: rales, rhonchi, wheezes Cardiovascular exam: PRESENT: RRR. ABSENT: diastolic murmur, rubs, systolic murmur GI/Abdominal exam: PRESENT: normal bowel sounds, soft. ABSENT: distended, guarding, mass, organolmegaly, rebound, tenderness Rectal exam: PRESENT: deferred Gentrourinary exam: PRESENT: indwelling catheter Extremities exam: PRESENT: full ROM. ABSENT: calf tenderness, clubbing, pedal edema Musculoskeletal exam: PRESENT: normal inspection Neurological exam: PRESENT: alert, awake, oriented to person, oriented to place, oriented to situation, CN II-XII grossly intact Psychiatric exam: PRESENT: appropriate affect, normal mood. ABSENT: homicidal ideation, suicidal ideation Skin exam: PRESENT: dry, intact, warm, other - Heel and sacral decubitus.. ABSENT: cyanosis, rash Laboratory/Radiographs Laboratory Results: 07/06/19 04:12 07/07/19 04:03 07/07/19 07/07/19 04:03 09:00 Carbonic Acid 1.74 H HCO3/H2CO3 Ratio 17:1 ABG pH 7.33 L ABG pCO2 57.8 H ABG pO2 47.3 L ABG HCO3 29.9 H ABG O2 Saturation 79.4 L ABG Base Excess 3.0 FiO2 2L Sodium 140.1 Potassium 3.9 Chloride 108 H Carbon Dioxide 26 Anion Gap 6 BUN 68 H Creatinine 2.91 H Est GFR ( Amer) 20 L Glucose 111 H Calcium 8.6 07/01/19 08:13 Blood Blood Culture - Final NO GROWTH IN 5 DAYS 07/01/19 07/01/19 07/01/19 00:14 00:14 07:07 Creatine Kinase 33 Troponin I 0.014 < 0.012 NT-Pro-B Natriuret Pep [id number] H 07/01/19 07/02/19 23:42 05:32 Creatine Kinase Troponin I NT-Pro-B Natriuret Pep 9620 H 9700 H Impressions: Cervical Spine CT 07/01/19 01:02 IMPRESSION: 1. No acute findings of the cervical spine. Limitation. 2. Small patchy opacity-atelectasis partially imaged at the right lung apex. Similar pattern radiographs from April 2019. Recommend CR/CT surveillance including at 7-12 weeks following initiation of any clinically warranted therapy. Pelvis X-Ray 07/01/19 01:20 IMPRESSION: No acute displaced fracture is identified. Head CT 07/01/19 06:54 IMPRESSION: Findings consistent with sequela from the prior area of hemorrhage from March 2019 in the right temporal lobe with no evidence to suggest new hemorrhage. Abdomen/Pelvis CT 07/01/19 06:58 IMPRESSION: 1. Bilateral pleural effusions with anasarca consistent with some volume overload and/or third spacing. 2. Bilateral lower lung opacities consistent with atelectasis and/or pneumonia. 3. Cholelithiasis. 4. Diverticulosis. 5. Otherwise stable exam. Chest X-Ray 07/05/19 00:00 IMPRESSION: 1. Patchy airspace disease in the right perihilar region, right lower lobe and possibly left lower lobe. Findings may be due to edema, aspiration or pneumonia. 2. Stable prominence of the cardiac silhouette and remote postsurgical changes of the mediastinum. All labs, radiographs, diagnostic studies and EKGs were personally reviewed: Yes In addition, reports of radiographic and diagnostic studies were read: Yes Assessment and Plan - Diagnosis (1) Acute renal failure Qualifiers: Acute renal failure type: with acute tubular necrosis Qualified Code(s): N17.0 - Acute kidney failure with tubular necrosis Is this a current diagnosis for this admission?: Yes Plan: Improving. Cr 2.9 with GFR 16. (2) UTI (urinary tract infection) Qualifiers: Urinary tract infection type: acute cystitis Is this a current diagnosis for this admission?: Yes Plan: No bacterial UTI. Some yeast but no evidence of systemic fungemia. On PO diflucan. (3) COPD (chronic obstructive pulmonary disease) Qualifiers: COPD type: unspecified COPD Qualified Code(s): J44.9 - Chronic obstructive pulmonary disease, unspecified Is this a current diagnosis for this admission?: Yes Plan: Antivert and predisone for vertigo. May help COPD. No wheezing. (4) Diabetes mellitus type 2 in obese Is this a current diagnosis for this admission?: Yes Plan: Controlled (5) Obesity (BMI 30-39.9) Is this a current diagnosis for this admission?: Yes Plan: Chronic (6) Acidosis, metabolic Is this a current diagnosis for this admission?: Yes Plan: Resolved (7) Hyperkalemia, diminished renal excretion Is this a current diagnosis for this admission?: Yes Plan: Resolved (8) Delirium due to another medical condition, acute, hypoactive Is this a current diagnosis for this admission?: Yes Plan: Improved. (9) Aspiration into lower respiratory tract Qualifiers: Encounter type: initial encounter Qualified Code(s): T17.800A - Unspecified foreign body in other parts of respiratory tract causing asphyxiation, initial encounter Is this a current diagnosis for this admission?: Yes Plan: Resolved (10) Hypercapnic respiratory failure Qualifiers: Chronicity: acute Qualified Code(s): J96.02 - Acute respiratory failure with hypercapnia Is this a current diagnosis for this admission?: Yes Plan: ABG shows slight hypercarbia. (11) Vertigo Is this a current diagnosis for this admission?: Yes Plan: She has had this before and will treat with antivert and prednisone. Plan Summary: Will try to get her to medical floor today. Critical Time Critical Time (minutes): 30 Level of Care: MEDICAL Anticipated discharge: Home with Homehealth Within: Other -: 1. The care of a critical patient is a dynamic process. This note is a admissions representative synopsis but static in nature. The timeframe for treatments given in order is not necessarily the actual time these treatments may have been done. 2. This patient requires critical care secondary to ongoing requirements for therapy not offered or safe outside the critical care environment. Transfer to a lower level of care will result in altered life or limb morbidity and mortality. 3. Multidisciplinary rounds completed. 4. ABCDE bundle addressed.
[2019-07-07] MEDS: LOSARTAN POTASSIUM 50 MG TABLET PO SCH (12:19)
[2019-07-07] MEDS: MULTIVITAMINS W-IRON TABLET, CHEWABLE PO SCH (12:20)
[2019-07-07] MEDS: ACETAMINOPHEN 325 MG TABLET PO PRN (12:20)
[2019-07-07] MEDS: DOCUSATE SODIUM 100 MG CAPSULE PO PRN (12:20)
[2019-07-07] MEDS: PREDNISONE 20 MG TABLET PO SCH (12:21)
[2019-07-07] MEDS: MECLIZINE HCL 12.5 MG TABLET PO PRN ×2 (12:21→17:09)
[2019-07-07] MEDS: ESCITALOPRAM OXALATE 10 MG TABLET PO SCH (21:30)
[2019-07-08] MEDS: SCOPOLAMINE HYDROBROMIDE 1.5 MG PATCH.TD72 TD SCH (03:03)
[2019-07-08] MEDS: HEPARIN SOD (PORCINE) 5,000 UNIT/ML 1 ML VIAL SUBCUT SCH ×3 (06:26→21:24)
[2019-07-08] MEDS: SUCRALFATE 1 GM TABLET PO SCH ×2 (09:27→10:40)
[2019-07-08] MEDS: FUROSEMIDE 20 MG TABLET PO SCH ×2 (09:28→10:41)
[2019-07-08] MEDS: MULTIVITAMINS W-IRON TABLET, CHEWABLE PO SCH (09:28)
[2019-07-08] MEDS: LOSARTAN POTASSIUM 50 MG TABLET PO SCH (09:29)
[2019-07-08] MEDS: PREDNISONE 20 MG TABLET PO SCH (09:29)
[2019-07-08] MEDS: FLUCONAZOLE 100 MG TABLET PO SCH (09:32)
[2019-07-08] MEDS: CHOLECALCIFEROL (D3) 1,000 UNIT (25 MCG) TABLET PO SCH (09:32)
[2019-07-08] MEDS: CARVEDILOL 12.5 MG TABLET PO SCH ×2 (09:33→21:25)
[2019-07-08] MEDS: ASCORBIC ACID 500 MG TABLET PO SCH (09:33)
[2019-07-08] MEDS: FAMOTIDINE 20 MG TABLET PO SCH (09:34)
[2019-07-08] MEDS ORDERED: SCOPOLAMINE HYDROBROMIDE 1.5 MG PATCH.TD72 TD SCH (10:00)
--- NOTE | 2019-07-08 14:01 | PDOC PROGRESS REPORT ---
Subjective Progress Note for:: 07/08/19 Subjective:: Patient is clinically doing well and much better. When I saw her she was sitting up and finishing her breakfast this morning. She is making good amount of urine output and her blood pressure is within acceptable normal limits. The only complaint she has is a little bit of dizziness for which she was started on a scopolamine by the road service locksmith. She said she is breathing okay. Reason For Visit: ACUTE RENAL FAILURE,DEHYDRATION Physical Exam Vital Signs: Temp Pulse Resp BP Pulse Ox 98.2 F 72 16 138/66 H 97 07/08/19 09:36 07/08/19 09:36 07/08/19 10:00 07/08/19 09:36 07/08/19 10:00 Intake & Output 07/07/19 07/08/19 07/09/19 06:59 06:59 06:59 Intake Total 1050 600 Output Total 950 1325 Balance 100 -725 Weight 106.5 kg 104.9 kg Exam: General appearance: PRESENT: no acute distress, cooperative, well-developed, well-nourished Head exam: PRESENT: atraumatic, normocephalic Eye exam: PRESENT: conjunctiva slightly pale, PERRLA. ABSENT: scleral icterus Neck exam: ABSENT: JVD Respiratory exam: PRESENT: Diminished breath sounds. ABSENT: crackles, rales, rhonchi, unlabored, wheezes Cardiovascular exam: PRESENT: Regular rate rhythm -+S1, +S2. ABSENT: diastolic murmur, systolic murmur GI/Abdominal exam: PRESENT: normal bowel sounds, soft. ABSENT: guarding, mass, tenderness Extremities exam: Trace to mild bilateral upper extremity and lower extremity edema Neurological exam: PRESENT: alert, awake, oriented to person, place and time. Skin exam: PRESENT: dry, warm, Results Laboratory Results: 07/06/19 04:12 07/07/19 04:03 07/01/19 07/01/19 07/01/19 00:14 00:14 07:07 Creatine Kinase 33 Troponin I 0.014 < 0.012 NT-Pro-B Natriuret Pep 46974 H 07/01/19 07/02/19 23:42 05:32 Creatine Kinase Troponin I NT-Pro-B Natriuret Pep 9620 H 9700 H Impressions: Cervical Spine CT 07/01/19 01:02 IMPRESSION: 1. No acute findings of the cervical spine. Limitation. 2. Small patchy opacity-atelectasis partially imaged at the right lung apex. Similar pattern radiographs from April 2019. Recommend CR/CT surveillance including at 7-12 weeks following initiation of any clinically warranted therapy. Pelvis X-Ray 07/01/19 01:20 IMPRESSION: No acute displaced fracture is identified. Head CT 07/01/19 06:54 IMPRESSION: Findings consistent with sequela from the prior area of hemorrhage from March 2019 in the right temporal lobe with no evidence to suggest new hemorrhage. Abdomen/Pelvis CT 07/01/19 06:58 IMPRESSION: 1. Bilateral pleural effusions with anasarca consistent with some volume overload and/or third spacing. 2. Bilateral lower lung opacities consistent with atelectasis and/or pneumonia. 3. Cholelithiasis. 4. Diverticulosis. 5. Otherwise stable exam. Chest X-Ray 07/05/19 00:00 IMPRESSION: 1. Patchy airspace disease in the right perihilar region, right lower lobe and possibly left lower lobe. Findings may be due to edema, aspiration or pneumonia. 2. Stable prominence of the cardiac silhouette and remote postsurgical changes of the mediastinum. Assessment & Plan - Diagnosis (1) Acute kidney injury Is this a current diagnosis for this admission?: Yes Plan: Likely due to initial prerenal azotemia which led to ischemic acute tubular necrosis due to persistent hypotension secondary to initial hypovolemia. Her kidney function is showing improvement . Patient is clinically retaining fluid mother is now making acceptable amount of urine output. I think the patient's kidney function will continue to improve from here. I agree with low-dose Lasix. (2) Hypercapnic respiratory failure Qualifiers: Chronicity: acute Qualified Code(s): J96.02 - Acute respiratory failure with hypercapnia Is this a current diagnosis for this admission?: Yes Plan: Defer to road service locksmith. Currently improved. (3) Aspiration into lower respiratory tract Qualifiers: Encounter type: initial encounter Qualified Code(s): T17.800A - Unspecified foreign body in other parts of respiratory tract causing asphyxiation, initial encounter Is this a current diagnosis for this admission?: Yes Plan: Per road service locksmith/primary provider. (4) Acidosis, metabolic Is this a current diagnosis for this admission?: Yes Plan: Resolved. (5) Hyperkalemia, diminished renal excretion Is this a current diagnosis for this admission?: Yes Plan: Resolved. (6) UTI (urinary tract infection) Qualifiers: Urinary tract infection type: acute cystitis Is this a current diagnosis for this admission?: Yes Plan: On IV ceftriaxone per road service locksmith. Urine culture though only showed lac tobacillus and yeast but not [place]. On IV fluconazole per road service locksmith. (7) Hypotension Qualifiers: Hypotension type: unspecified hypotension type Qualified Code(s): I95.9 - Hypotension, unspecified Is this a current diagnosis for this admission?: Yes Plan: Resolved. (8) Anemia Qualifiers: Anemia type: other cause Is this a current diagnosis for this admission?: Yes - Notes Notes: I will sign off for this time. Please call me if you have any questions or if I can be of any further help. - Time Time with patient: 15-25 minutes
--- NOTE | 2019-07-08 14:13 | PDOC CRITICAL CARE PROG REPORT ---
General Date:: 07/08/19 ICU Day:: 3 Hospital Day:: 7 Resuscitation Status: Full Code Events in the past 12 to 24 Hours:: 07/07: continues to report dizziness (self-spinning rather than room spinning). No nausea at this time. In fact, wants to eat. Developed dizziness, likely vertigo. Had speech/swallow evaluation this am. On exam, the patient is noted to have a tender, DTI/stage III ulcer of the left heel with purulent drainage... but claims that she can walk with walker. DVT PROPHYLAXIS: Heparin. GI PROPHYLAXIS: Famotidine, sucralfate. Review of systems relevant to events:: Neurological, pulmonary, renal. Reason for ICU Addmission:: ARF improving. Does not need ICU level of care. - Medications: Medications reviewed and adjusted accordingly: Yes Physical Exam Vital Signs: Temp Pulse Resp BP Pulse Ox 98.2 F 72 16 138/66 H 97 07/08/19 09:36 07/08/19 09:36 07/08/19 10:00 07/08/19 09:36 07/08/19 10:00 Intake & Output 07/07/19 07/08/19 07/09/19 06:59 06:59 06:59 Intake Total 1050 600 Output Total 950 1325 Balance 100 -725 Weight 106.5 kg 104.9 kg Weight/Height Weight 104.9 kg Height 1.63 m General appearance: PRESENT: no acute distress, well-developed, well-nourished Head exam: PRESENT: atraumatic, normocephalic Eye exam: PRESENT: conjunctiva pink, EOMI, PERRLA. ABSENT: scleral icterus Mouth exam: PRESENT: moist, tongue midline Teeth exam: PRESENT: poor dentation Neck exam: ABSENT: carotid bruit, JVD, lymphadenopathy, thyromegaly Respiratory exam: PRESENT: clear to auscultation lele. ABSENT: rales, rhonchi, wheezes Cardiovascular exam: PRESENT: RRR. ABSENT: diastolic murmur, rubs, systolic murmur GI/Abdominal exam: PRESENT: normal bowel sounds, soft. ABSENT: distended, guarding, mass, organolmegaly, rebound, tenderness Extremities exam: PRESENT: full ROM, other - Left heel (plantar) ulcer. ABSENT: calf tenderness, clubbing, pedal edema Neurological exam: PRESENT: alert, awake, oriented to person, oriented to place, oriented to time, oriented to situation, CN II-XII grossly intact, other - Bilateral lower extremity paresthesia. Psychiatric exam: PRESENT: appropriate affect, normal mood. ABSENT: homicidal ideation, suicidal ideation Skin exam: PRESENT: dry, warm, other - Left heel ulcer. ABSENT: cyanosis, rash Laboratory/Radiographs Laboratory Results: 07/06/19 04:12 07/07/19 04:03 07/01/19 07/01/19 07/01/19 00:14 00:14 07:07 Creatine Kinase 33 Troponin I 0.014 < 0.012 NT-Pro-B Natriuret Pep 15181 H 07/01/19 07/02/19 23:42 05:32 Creatine Kinase Troponin I NT-Pro-B Natriuret Pep 9620 H 9700 H Impressions: Cervical Spine CT 07/01/19 01:02 IMPRESSION: 1. No acute findings of the cervical spine. Limitation. 2. Small patchy opacity-atelectasis partially imaged at the right lung apex. Similar pattern radiographs from April 2019. Recommend CR/CT surveillance including at 7-12 weeks following initiation of any clinically warranted therapy. Pelvis X-Ray 07/01/19 01:20 IMPRESSION: No acute displaced fracture is identified. Head CT 07/01/19 06:54 IMPRESSION: Findings consistent with sequela from the prior area of hemorrhage from March 2019 in the right temporal lobe with no evidence to suggest new hemorrhage. Abdomen/Pelvis CT 07/01/19 06:58 IMPRESSION: 1. Bilateral pleural effusions with anasarca consistent with some volume overload and/or third spacing. 2. Bilateral lower lung opacities consistent with atelectasis and/or pneumonia. 3. Cholelithiasis. 4. Diverticulosis. 5. Otherwise stable exam. Chest X-Ray 07/05/19 00:00 IMPRESSION: 1. Patchy airspace disease in the right perihilar region, right lower lobe and possibly left lower lobe. Findings may be due to edema, aspiration or pneumonia. 2. Stable prominence of the cardiac silhouette and remote postsurgical changes of the mediastinum. 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 Wound care consultation. Wound culture. (2) Acute kidney injury Is this a current diagnosis for this admission?: Yes Plan: Improving, Cr 5.13-->5.26-->-->2.97. Of note, baseline Cr < 1. Renal dosing of medications. Famotidine will be reduced to once daily dosing. Avoid nephrotoxic drugs. Stop sucralfate. The patient apparently does not have a history of GERD or peptic ulcer disease, despite home use of famotidine and sucralfate. Consequently, GI prophylaxis with famotidine alone. (3) UTI (urinary tract infection) Qualifiers: Urinary tract infection type: acute cystitis Is this a current diagnosis for this admission?: Yes Plan: No bacterial UTI. Some yeast but no evidence of systemic fungemia. On PO diflucan. (4) Vertigo Is this a current diagnosis for this admission?: Yes Plan: On scopolamine, Antivert and prednisone. (6) Delirium due to another medical condition, acute, hypoactive Is this a current diagnosis for this admission?: Yes (7) Hypertension Qualifiers: Hypertension type: essential hypertension Qualified Code(s): I10 - Essenti al (primary) hypertension Is this a current diagnosis for this admission?: Yes Plan: Currently on carvedilol 12.5 mg p.o. twice daily; furosemide 20 mg p.o. daily; losartan 50 mg p.o. daily. (8) Pressure ulcer of sacral region, stage 2 Is this a current diagnosis for this admission?: Yes Critical Time Critical Time (minutes): 60 Level of Care: IMCU -: 1. The care of a critical patient is a dynamic process. 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 The timeframe for treatments given in order is not necessarily the actual time these treatments may have been done. 2. This patient requires critical care secondary to ongoing requirements for therapy not offered or safe outside the critical care environment. Transfer to a lower level of care will result in altered life or limb morbidity and mortality. 3. Multidisciplinary rounds completed. 4. ABCDE bundle addressed.
--- NOTE | 2019-07-08 15:42 | PDOC CONSULTATION ---
Consultation Consult Date: 07/08/19 Attending physician:: ZEYNEP STEPHENSON Provider Consulted: MARGY PYLE Consult reason:: left heel ulcer History of Present Illness Admission Date/PCP: 07/01/19 03:33 RENAN OSUNKOYA History of Present Illness: LEEANN FUNEZ is a 64 year old female Past Medical History Cardiac Medical History: Reports: Congestive Heart Failure, Coronary Artery Disease, Myocardial Infarction, Hyperlipidema, Hypertension, Peripheral Vascular Disease Denies: Atrial Fibrillation Pulmonary Medical History: Reports: Bronchitis Denies: Asthma, Chronic Obstructive Pulmonary Disease (COPD), Pneumonia, Tuberculosis Neurological Medical History: Denies: Seizures Endocrine Medical History: Reports: Diabetes Mellitus Type 1, Diabetes Mellitus Type 2 Renal/ Medical History: Denies: End Stage Renal Disease Malignancy Medical History: GI Medical History: Reports: Diverticulitis - diverticulosis Denies: Gastroesophageal Reflux Disease, Hiatal Hernia Musculoskeltal Medical History: Denies: Arthritis Psychiatric Medical History: Denies: Bipolar Disorder, Depression Hematology: Denies: Anemia, Hemophilia, Sickle Cell Disease Infectious Medical History: Past Surgical History Past Surgical History: Reports: Coronary Artery Bypass Graft - May 16 2011, Tonsillectomy, Vascular Surgery Denies: Amputation, Appendectomy, Cardiac Catheterization, Section, Cholecystectomy, Hysterectomy, Mastectomy, Tubal Ligation Social History Smoking Status: Unknown if Ever Smoked Frequency of Alcohol Use: None Hx Recreational Drug Use: No Drugs: None Hx Prescription Drug Abuse: No - Advance Directive Resuscitation Status: Full Code Family History Family History: CAD, Hyperlipidemia, Hypertension, Reviewed & Not Pertinent Parental Family History Reviewed: No Children Family History Reviewed: NA Sibling(s) Family History Reviewed.: NA Medication/Allergy Home Medications: Amlodipine Besylate [Norvasc 10 mg Tablet] 10 mg PO DAILY 11/30/18 Ascorbic Acid [Vitamin C 500 mg Tablet] 500 mg PO DAILY 11/30/18 Atorvastatin Calcium [Lipitor 20 mg Tablet] 20 mg PO QHS 11/30/18 Docusate Sodium [Colace 100 mg Capsule] 100 mg PO BIDP PRN 11/30/18 Ferrous Sulfate [Feosol 325 mg Tablet] 325 mg PO DAILY 11/30/18 Furosemide [Lasix 20 mg Tablet] 20 mg PO BID 11/30/18 Gabapentin [Neurontin 300 mg Capsule] 300 mg PO Q8 01/06/19 Insulin Degludec [Tresiba Flextouch U-100] 40 unit SQ DAILY 01/06/19 Escitalopram Oxalate [Lexapro 10 mg Tablet] 10 mg PO QHS #30 tablet 03/01/19 Carvedilol [Coreg 12.5 mg Tablet] 12.5 mg PO Q12 04/13/19 Cholecalciferol (Vitamin D3) [Vitamin D3 1000 Unit Tablet] 2,000 unit PO DAILY 04/13/19 Dicyclomine HCl [Bentyl 10 mg Capsule] 10 mg PO DAILY PRN 04/13/19 Famotidine [Pepcid] 20 mg PO BID 04/13/19 Hydralazine HCl 100 mg PO Q8 04/13/19 Ipratropium/Albuterol Sulfate [Duoneb 3 ml Ampul] 3 ml NEB RTQ6HP PRN 30 Days #60 vial.neb 04/20/19 Multivit,Tx with Iron,Minerals [Thera-M] 1 each PO DAILY 05/08/19 Olmesartan Medoxomil [Benicar] 20 mg PO DAILY 05/08/19 Sucralfate [Carafate 1 gm Tablet] 1 gm PO ACHS 05/08/19 Acetaminophen [Acetaminophen Extra Strength] 500 mg PO DAILYP PRN 07/01/19 Allergies/Adverse Reactions: pregabalin [From Lyrica] Allergy (Intermediate, Verified 07/03/19 07:18) RASH duloxetine Allergy (Verified 07/03/19 07:18) Review of Systems ROS unobtainable: Due to mental status Physical Exam Vital Signs: Temp Pulse Resp BP Pulse Ox 98.2 F 72 14 148/74 H 92 07/08/19 09:36 07/08/19 09:36 07/08/19 14:00 07/08/19 13:04 07/08/19 14:00 Intake & Output 07/07/19 07/08/19 07/09/19 06:59 06:59 06:59 Intake Total 1050 600 Output Total 950 1325 Balance 100 -725 Weight 106.5 kg 104.9 kg General appearance: PRESENT: no acute distress Eye exam: PRESENT: EOMI Mouth exam: PRESENT: moist Teeth exam: PRESENT: poor dentation Neck exam: PRESENT: full ROM Respiratory exam: PRESENT: clear to auscultation lele Cardiovascular exam: PRESENT: RRR Pulses: PRESENT: normal radial pulses, normal femoral pulses Vascular exam: PRESENT: normal capillary refill Breast: PRESENT: Normal GI/Abdominal exam: PRESENT: soft Rectal exam: PRESENT: deferred Extremities exam: PRESENT: full ROM, other - On the left heel there is a 4 cm ulcer that extends through the epidermis into the deep tissue consistent with a stage III decubitus ulcer. There is a granulation bed at the base of the ulcer has no significant necrotic tissue surrounding it. Skin exam: PRESENT: dry Results Laboratory Results: 07/06/19 04:12 07/07/19 04:03 07/01/19 07/01/19 07/01/19 00:14 00:14 07:07 Creatine Kinase 33 Troponin I 0.014 < 0.012 NT-Pro-B Natriuret Pep 06402 H 07/01/19 07/02/19 23:42 05:32 Creatine Kinase Troponin I NT-Pro-B Natriuret Pep 9620 H 9700 H Impressions: Cervical Spine CT 07/01/19 01:02 IMPRESSION: 1. No acute findings of the cervical spine. Limitation. 2. Small patchy opacity-atelectasis partially imaged at the right lung apex. Similar pattern radiographs from April 2019. Recommend CR/CT surveillance including at 7-12 weeks following initiation of any clinically warranted therapy. Pelvis X-Ray 07/01/19 01:20 IMPRESSION: No acute displaced fracture is identified. Head CT 07/01/19 06:54 IMPRESSION: Findings consistent with sequela from the prior area of hemorrhage from March 2019 in the right temporal lobe with no evidence to suggest new hemorrhage. Abdomen/Pelvis CT 07/01/19 06:58 IMPRESSION: 1. Bilateral pleural effusions with anasarca consistent with some volume overload and/or third spacing. 2. Bilateral lower lung opacities consistent with atelectasis and/or pneumonia. 3. Cholelithiasis. 4. Diverticulosis. 5. Otherwise stable exam. Chest X-Ray 07/05/19 00:00 IMPRESSION: 1. Patchy airspace disease in the right perihilar region, right lower lobe and possibly left lower lobe. Findings may be due to edema, aspiration or pneumonia. 2. Stable prominence of the cardiac silhouette and remote postsurgical changes of the mediastinum. Assessment & Plan - Plan Summary Plan Summary: Patient stage III decubiti ulcer of the left heel. Currently the wound is clean with a good granulation bed. Suspect a chronic wound would continue with wet-to-dry dressings while she is in the hospital. She could be sent to the wound clinic upon discharge for further management. No indication for surgical debridement at this time.
[2019-07-08] MEDS ORDERED: VANCOMYCIN HCL 0 MG in DEXTROSE 5%-WATER 250 ML IV NR (16:30)
[2019-07-08] MEDS: CEFAZOLIN 1 GM/D5W RTU 1 GM/50 ML RTUPB IV SCH (17:07)
[2019-07-08] MEDS: MECLIZINE HCL 12.5 MG TABLET PO PRN (17:11)
[2019-07-08] MEDS: VANCOMYCIN HCL 750 MG in DEXTROSE 5%-WATER 250 ML IV SCH (17:37)
[2019-07-08] MEDS ORDERED: CEFAZOLIN 1 GM/D5W RTU 1 GM/50 ML RTUPB IV SCH (18:00)
[2019-07-08] MEDS: CLINDAMYCIN 900 MG/D5W RTU 900 MG/50 ML RTUPB IV SCH (21:24)
[2019-07-08] MEDS: ESCITALOPRAM OXALATE 10 MG TABLET PO SCH (21:25)
[2019-07-09] MEDS: HEPARIN SOD (PORCINE) 5,000 UNIT/ML 1 ML VIAL SUBCUT SCH ×3 (05:08→21:10)
[2019-07-09] MEDS: CLINDAMYCIN 900 MG/D5W RTU 900 MG/50 ML RTUPB IV SCH ×3 (05:08→21:09)
[2019-07-09] MEDS: CEFAZOLIN 1 GM/D5W RTU 1 GM/50 ML RTUPB IV SCH ×2 (05:08→17:17)
[2019-07-09 05:31] LABS: ARTERIAL BLOOD H2CO3 1.69 mmol/L (1.05-1.35); ARTERIAL BLOOD HCO3 29.7 mmol/L (20-24); ARTERIAL BLOOD PCO2 56.1 mmHg (35-45); ARTERIAL BLOOD PH 7.34 (7.35-7.45); ARTERIAL BLOOD TOTAL CO2 31.4 mmol/L (21-25)
[2019-07-09] MEDS: MECLIZINE HCL 12.5 MG TABLET PO PRN ×2 (05:33→21:10)
[2019-07-09] MEDS: ACETAMINOPHEN 325 MG TABLET PO PRN (05:33)
[2019-07-09 05:34] LABS: ARTERIAL BLOOD FIO2 3L
[2019-07-09 06:06] LABS: ANION GAP 7 (5-19); BLOOD UREA NITROGEN 61 mg/dL (7-20); CALCIUM 9.1 mg/dL (8.4-10.2); CARBON DIOXIDE 28 mmol/L (22-30); CHLORIDE 107 mmol/L (98-107); GLUCOSE 167 mg/dL (75-110); PHOSPHORUS 3.7 mg/dL (2.5-4.5); POTASSIUM 3.9 mmol/L (3.6-5.0)
[2019-07-09] MEDS: ASCORBIC ACID 500 MG TABLET PO SCH (09:05)
[2019-07-09] MEDS: CHOLECALCIFEROL (D3) 1,000 UNIT (25 MCG) TABLET PO SCH (09:06)
[2019-07-09] MEDS: FUROSEMIDE 20 MG TABLET PO SCH (09:06)
[2019-07-09] MEDS: CARVEDILOL 12.5 MG TABLET PO SCH ×2 (09:06→21:10)
[2019-07-09] MEDS: MULTIVITAMINS W-IRON TABLET, CHEWABLE PO SCH (09:07)
[2019-07-09] MEDS: FAMOTIDINE 20 MG TABLET PO SCH (09:08)
[2019-07-09] MEDS: PREDNISONE 20 MG TABLET PO SCH (09:08)
[2019-07-09] MEDS: LOSARTAN POTASSIUM 50 MG TABLET PO SCH (09:08)
[2019-07-09] MEDS: VANCOMYCIN HCL 750 MG in DEXTROSE 5%-WATER 250 ML IV SCH (17:19)
[2019-07-09] MEDS: ESCITALOPRAM OXALATE 10 MG TABLET PO SCH (21:10)
[2019-07-10 04:44] LABS: ABSOLUTE LYMPHOCYTES (AUTO) 0.8 10^3/uL (0.5-4.7); ABSOLUTE MONOCYTES (AUTO) 0.6 10^3/uL (0.1-1.4); ABSOLUTE NEUT (AUTO) 4.9 10^3/uL (1.7-8.2); BASOPHILS % (AUTO) 0.4 % (0-2); EOSINOPHILS % (AUTO) 0.1 % (0-6); HEMATOCRIT 24.9 % (36.0-47.0); HEMOGLOBIN 8.2 g/dL (12.0-15.5); LYMPHOCYTES % (AUTO) 12.1 % (13-45); MEAN CORPUSCULAR HEMOGLOBIN 30.9 pg (27.0-33.4); MEAN CORPUSCULAR HGB CONC 32.9 g/dL (32.0-36.0); MEAN CORPUSCULAR VOLUME 94 fl (80-97); MONOCYTES % (AUTO) 9.4 % (3-13); PLATELET COUNT 200 10^3/uL (150-450); RED BLOOD COUNT 2.64 10^6/uL (3.72-5.28); RED CELL DISTRIBUTION WIDTH 17.3 % (11.5-14.0); TOTAL CELLS COUNTED % (AUTO) 100 %; WHITE BLOOD COUNT 6.3 10^3/uL (4.0-10.5)
[2019-07-10 04:47] LABS: ALBUMIN 3.1 g/dL (3.5-5.0); ALKALINE PHOSPHATASE 249 U/L (38-126); ANION GAP 6 (5-19); ASPARTATE AMINO TRANSFERASE 30 U/L (14-36); BILIRUBIN,DIRECT 0.2 mg/dL (0.0-0.4); BILIRUBIN,TOTAL 0.6 mg/dL (0.2-1.3); BLOOD UREA NITROGEN 61 mg/dL (7-20); CALCIUM 9.1 mg/dL (8.4-10.2); CARBON DIOXIDE 28 mmol/L (22-30); CHLORIDE 106 mmol/L (98-107); GLUCOSE 209 mg/dL (75-110); PHOSPHORUS 3.6 mg/dL (2.5-4.5); POTASSIUM 4.3 mmol/L (3.6-5.0); TOTAL PROTEIN 7.6 g/dL (6.3-8.2)
[2019-07-10] MEDS: HEPARIN SOD (PORCINE) 5,000 UNIT/ML 1 ML VIAL SUBCUT SCH ×3 (05:24→22:01)
[2019-07-10] MEDS: CEFAZOLIN 1 GM/D5W RTU 1 GM/50 ML RTUPB IV SCH ×2 (05:25→17:01)
[2019-07-10] MEDS: CLINDAMYCIN 900 MG/D5W RTU 900 MG/50 ML RTUPB IV SCH ×3 (05:25→22:00)
[2019-07-10] MEDS: MECLIZINE HCL 12.5 MG TABLET PO PRN (07:49)
[2019-07-10] MEDS: ASCORBIC ACID 500 MG TABLET PO SCH (09:15)
[2019-07-10] MEDS: CHOLECALCIFEROL (D3) 1,000 UNIT (25 MCG) TABLET PO SCH (09:16)
[2019-07-10] MEDS: MULTIVITAMINS W-IRON TABLET, CHEWABLE PO SCH (09:16)
[2019-07-10] MEDS: CARVEDILOL 12.5 MG TABLET PO SCH ×2 (09:16→22:02)
[2019-07-10] MEDS: FUROSEMIDE 20 MG TABLET PO SCH (09:16)
[2019-07-10] MEDS: LOSARTAN POTASSIUM 50 MG TABLET PO SCH (09:16)
[2019-07-10] MEDS: PREDNISONE 20 MG TABLET PO SCH (09:17)
[2019-07-10] MEDS: FAMOTIDINE 20 MG TABLET PO SCH (09:17)
[2019-07-10] MEDS ORDERED: GLUCAGON,HUMAN RECOMB 1 MG INJ IM PRN (09:48)
[2019-07-10] MEDS ORDERED: DEXTROSE 40% GEL 15 GM TUBE PO PRN ×2 (09:48)
[2019-07-10] MEDS ORDERED: DEXTROSE 50%-WATER 25 GM/50 ML DISP.SYRIN IV PRN ×2 (09:48)
--- NOTE | 2019-07-10 10:33 | PDOC CRITICAL CARE PROG REPORT ---
General Date:: 07/09/19 ICU Day:: 4 Hospital Day:: 8 Resuscitation Status: Full Code Events in the past 12 to 24 Hours:: 07/07: continues to report dizziness (self-spinning rather than room spinning). No nausea at this time. In fact, wants to eat. Developed dizziness, likely vertigo. Had speech/swallow evaluation this am. On exam, the patient is noted to have a tender, DTI/stage III ulcer of the left heel with purulent drainage... but claims that she can walk with walker. DVT PROPHYLAXIS: Heparin. GI PROPHYLAXIS: Famotidine, sucralfate. 07/08: Continues to report dizziness (self spinning rather than room spinning). She believes that Antivert may be providing modest relief (approximately 30 minutes in duration). No nausea. Tolerating p.o. intake. Dr. De Los Santos evaluated the left heel ulcer in the interim and determined that debridement was not required at this time. Help appreciated. Kidney function continues to improve. Cr down to 2.0. DVT PROPHYLAXIS: Heparin code. GI PROPHYLAXIS: Renally dosed famotidine. Review of systems relevant to events:: Neurological, pulmonary, renal. Reason for ICU Addmission:: ARF improving. Does not need ICU level of care. - Medications: Medications reviewed and adjusted accordingly: Yes Physical Exam Vital Signs: Temp Pulse Resp BP Pulse Ox 98 F 66 13 145/67 H 98 07/08/19 21:13 07/09/19 09:00 07/09/19 08:08 07/09/19 05:05 07/09/19 08:08 Intake & Output 07/08/19 07/09/19 07/10/19 06:59 06:59 06:59 Intake Total 600 590 Output Total 1325 1600 Balance -725 -1010 Weight 104.9 kg 105.4 kg Weight/Height Weight 105.4 kg Height 1.63 m General appearance: PRESENT: no acute distress, well-developed, well-nourished Head exam: PRESENT: atraumatic, normocephalic Eye exam: PRESENT: conjunctiva pink, EOMI, PERRLA. ABSENT: scleral icterus Neck exam: PRESENT: JVD. ABSENT: carotid bruit, lymphadenopathy, thyromegaly Respiratory exam: PRESENT: clear to auscultation lele. ABSENT: rales, rhonchi, wheezes Cardiovascular exam: PRESENT: RRR. ABSENT: diastolic murmur, rubs, systolic murmur Extremities exam: PRESENT: full ROM, other - L heel ulcer. ABSENT: calf tendern ess, clubbing, pedal edema Neurological exam: PRESENT: alert, awake, oriented to person, oriented to place, oriented to time, oriented to situation, CN II-XII grossly intact. ABSENT: motor sensory deficit Tubes/Lines: PRESENT: Other - Palacio Laboratory/Radiographs Laboratory Results: 07/06/19 04:12 07/09/19 05:37 07/09/19 07/09/19 05:21 05:37 Carbonic Acid 1.69 H HCO3/H2CO3 Ratio 17:1 ABG pH 7.34 L ABG pCO2 56.1 H ABG pO2 98.0 ABG HCO3 29.7 H ABG O2 Saturation 97.0 ABG Base Excess 3.0 FiO2 3L Sodium 142.0 Potassium 3.9 Chloride 107 Carbon Dioxide 28 Anion Gap 7 BUN 61 H Creatinine 2.02 H Est GFR ( Amer) 30 L Glucose 167 H Calcium 9.1 Phosphorus 3.7 Magnesium 2.1 07/01/19 07/01/19 07/01/19 00:14 00:14 07:07 Creatine Kinase 33 Troponin I 0.014 < 0.012 NT-Pro-B Natriuret Pep 02741 H 07/01/19 07/02/19 23:42 05:32 Creatine Kinase Troponin I NT-Pro-B Natriuret Pep 9620 H 9700 H Impressions: Cervical Spine CT 07/01/19 01:02 IMPRESSION: 1. No acute findings of the cervical spine. Limitation. 2. Small patchy opacity-atelectasis partially imaged at the right lung apex. Similar pattern radiographs from April 2019. Recommend CR/CT surveillance including at 7-12 weeks following initiation of any clinically warranted therapy. Pelvis X-Ray 07/01/19 01:20 IMPRESSION: No acute displaced fracture is identified. Head CT 07/01/19 06:54 IMPRESSION: Findings consistent with sequela from the prior area of hemorrhage from March 2019 in the right temporal lobe with no evidence to suggest new hemorrhage. Abdomen/Pelvis CT 07/01/19 06:58 IMPRESSION: 1. Bilateral pleural effusions with anasarca consistent with some volume overload and/or third spacing. 2. Bilateral lower lung opacities consistent with atelectasis and/or pneumonia. 3. Cholelithiasis. 4. Diverticulosis. 5. Otherwise stable exam. Chest X-Ray 07/05/19 00:00 IMPRESSION: 1. Patchy airspace disease in the right perihilar region, right lower lobe and possibly left lower lobe. Findings may be due to edema, aspiration or pneumonia. 2. Stable prominence of the cardiac silhouette and remote postsurgical changes of the mediastinum. 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 Continue Ancef/clindamycin/vancomycin until culture results finalized. Wound care consultation. Will need PT evaluation prior to final disposition. (2) Acute kidney injury Is this a current diagnosis for this admission?: Yes Plan: Refrigeration Supervisor note reviewed. Input appreciated. Signoff noted. Improving, Cr 5.1-->5.3-->-->3.0-->2.0. Of note, baseline Cr < 1. Renal dosing of medications. Avoid nephrotoxic drugs. The patient apparently does not have a history of GERD or peptic ulcer disease, despite home use of famotidine and sucralfate. Consequently, GI prophylaxis with famotidine alone. (3) UTI (urinary tract infection) Qualifiers: Urinary tract infection type: acute cystitis Is this a current diagnosis for this admission?: Yes Plan: No bacterial UTI. Some yeast but no evidence of systemic fungemia. On PO Diflucan (last dose today). (4) Vertigo Is this a current diagnosis for this admission?: Yes Plan: On scopolamine, Antivert and prednisone. (6) Hypertension Qualifiers: Hypertension type: essential hypertension Qualified Code(s): I10 - Essential (primary) hypertension Is this a current diagnosis for this admission?: Yes Plan: Currently on carvedilol 12.5 mg p.o. twice daily; furosemide 20 mg p.o. daily; losartan 50 mg p.o. daily. (7) Pressure ulcer of sacral region, stage 2 Is this a current diagnosis for this admission?: Yes Plan: Wound care. (8) Delirium due to another medical condition, acute, hypoactive Is this a current diagnosis for this admission?: Yes Plan: Improved. Critical Time Critical Time (minutes): 45 Level of Care: IMCU -: 1. The care of a critical patient is a dynamic process. 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 The timeframe for treatments given in order is not necessarily the actual time these treatments may have been done. 2. This patient requires critical care secondary to ongoing requirements for therapy not offered or safe outside the critical care environment. Transfer to a lower level of care will result in altered life or limb morbidity and mortality. 3. Multidisciplinary rounds completed. 4. ABCDE bundle addressed.
--- NOTE | 2019-07-10 10:41 | PDOC CRITICAL CARE PROG REPORT ---
General Date:: 07/10/19 ICU Day:: 5 Hospital Day:: 9 Resuscitation Status: Full Code Events in the past 12 to 24 Hours:: 07/07: continues to report dizziness (self-spinning rather than room spinning). No nausea at this time. In fact, wants to eat. Developed dizziness, likely vertigo. Had speech/swallow evaluation this am. On exam, the patient is noted to have a tender, DTI/stage III ulcer of the left heel with purulent drainage... but claims that she can walk with walker. DVT PROPHYLAXIS: Heparin. GI PROPHYLAXIS: Famotidine, sucralfate. 07/08: Continues to report dizziness (self spinning rather than room spinning). She believes that Antivert may be providing modest relief (approximately 30 minutes in duration). No nausea. Tolerating p.o. intake. Dr. De Los Santos evaluated the left heel ulcer in the interim and determined that debridement was not required at this time. Help appreciated. Kidney function continues to improve. Cr down to 2.0. DVT PROPHYLAXIS: Heparin. GI PROPHYLAXIS: Renally dosed famotidine. 07/09: No significant clinical change. Continues to report dizziness. No nausea. Tolerating p.o. intake. Awaiting culture results to narrow antibiotic therapy. Cr down to 1.8. DVT PROPHYLAXIS: Heparin. GI PROPHYLAXIS: Famotidine. Review of systems relevant to events:: Neurological, pulmonary, renal. Reason for ICU Addmission:: ARF improving. Does not need ICU level of care. - Medications: Medications reviewed and adjusted accordingly: Yes Physical Exam Vital Signs: Temp Pulse Resp BP Pulse Ox 98.2 F 62 19 154/70 H 100 07/10/19 07:57 07/10/19 07:57 07/10/19 10:00 07/10/19 09:05 07/10/19 10:00 Intake & Output 07/09/19 07/10/19 07/11/19 06:59 06:59 06:59 Intake Total 690 150 Output Total 1600 275 400 Balance -910 -125 -400 Weight 105.4 kg 106.6 kg Weight/Height Weight 106.6 kg Height 1.63 m General appearance: PRESENT: no acute distress, well-developed, well-nourished Head exam: PRESENT: atraumatic, normocephalic Eye exam: PRESENT: conjunctiva pink, EOMI, PERRLA. ABSENT: scleral icterus Neck exam: PRESENT: JVD. ABSENT: carotid bruit, lymphadenopathy, thyromegaly Respiratory exam: PRESENT: clear to auscultation lele. ABSENT: rales, rhonchi, wheezes Cardiovascular exam: PRESENT: RRR Pulses: PRESENT: normal dorsalis pedis pul GI/Abdominal exam: PRESENT: normal bowel sounds, soft. ABSENT: distended, guarding, mass, organolmegaly, rebound, tenderness Extremities exam: PRESENT: full ROM. ABSENT: calf tenderness, clubbing, pedal edema Neurological exam: PRESENT: alert, awake, oriented to person, oriented to place, oriented to time, oriented to situation, CN II-XII grossly intact. ABSENT: motor sensory deficit Skin exam: PRESENT: other - Left heel ulcer Laboratory/Radiographs Laboratory Results: 07/10/19 04:26 07/10/19 04:26 07/10/19 07/10/19 04:26 04:26 WBC 6.3 RBC 2.64 L Hgb 8.2 L Hct 24.9 L MCV 94 MCH 30.9 MCHC 32.9 RDW 17.3 H Plt Count 200 Seg Neutrophils % 78.0 Sodium 140.2 Potassium 4.3 Chloride 106 Carbon Dioxide 28 Anion Gap 6 BUN 61 H Creatinine 1.75 H Est GFR ( Amer) 35 L Glucose 209 H Calcium 9.1 Phosphorus 3.6 Magnesium 2.0 Total Bilirubin 0.6 AST 30 Alkaline Phosphatase 249 H Total Protein 7.6 Albumin 3.1 L 07/08/19 10:30 Ankle - Left Gram Stain - Final 07/01/19 07/01/19 07/01/19 00:14 00:14 07:07 Creatine Kinase 33 Troponin I 0.014 < 0.012 NT-Pro-B Natriuret Pep 43023 H 07/01/19 07/02/19 23:42 05:32 Creatine Kinase Troponin I NT-Pro-B Natriuret Pep 9620 H 9700 H Impressions: Cervical Spine CT 07/01/19 01:02 IMPRESSION: 1. No acute findings of the cervical spine. Limitation. 2. Small patchy opacity-atelectasis partially imaged at the right lung apex. Similar pattern radiographs from April 2019. Recommend CR/CT surveillance including at 7-12 weeks following initiation of any clinically warranted therapy. Pelvis X-Ray 07/01/19 01:20 IMPRESSION: No acute displaced fracture is identified. Head CT 07/01/19 06:54 IMPRESSION: Findings consistent with sequela from the prior area of hemorrhage from March 2019 in the right temporal lobe with no evidence to suggest new hemorrhage. Abdomen/Pelvis CT 07/01/19 06:58 IMPRESSION: 1. Bilateral pleural effusions with anasarca consistent with some volume overload and/or third spacing. 2. Bilateral lower lung opacities consistent with atelectasis and/or pneumonia. 3. Cholelithiasis. 4. Diverticulosis. 5. Otherwise stable exam. Chest X-Ray 07/05/19 00:00 IMPRESSION: 1. Patchy airspace disease in the right perihilar region, right lower lobe and possibly left lower lobe. Findings may be due to edema, aspiration or pneumonia. 2. Stable prominence of the cardiac silhouette and remote postsurgical changes of the mediastinum. 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 Continue Ancef/clindamycin/vancomycin until culture results finalized. Wound care consultation. Will need PT evaluation prior to final disposition. 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 Input appreciated. Signoff noted. Improving, Cr 5.1-->5.3-->-->3.0-->2.0-->1.8. Of note, baseline Cr < 1. Renal dosing of medications. Avoid nephrotoxic drugs. The patient apparently does not have a history of GERD or peptic ulcer disease, despite home use of famotidine and sucralfate. Consequently, GI prophylaxis with famotidine alone. (3) UTI (urinary tract infection) Qualifiers: Urinary tract infection type: acute cystitis Is this a current diagnosis for this admission?: Yes Plan: No bacterial UTI. Some yeast but no evidence of systemic fungemia. Treated with p.o. Diflucan. (4) Vertigo Is this a current diagnosis for this admission?: Yes Plan: On scopolamine, Antivert and prednisone. (6) Hypertension Qualifiers: Hypertension type: essential hypertension Qualified Code(s): I10 - Essential (primary) hypertension Is this a current diagnosis for this admission?: Yes Plan: Currently on carvedilol 12.5 mg p.o. twice daily; furosemide 20 mg p.o. daily; losartan 50 mg p.o. daily. (7) Pressure ulcer of sacral region, stage 2 Is this a current diagnosis for this admission?: Yes Plan: Wound care. (8) Delirium due to another medical condition, acute, hypoactive Is this a current diagnosis for this admission?: Yes (9) Diabetes mellitus type 2 in obese Is this a current diagnosis for this admission?: Yes Plan: Accu-Cheks before meals and at bedtime. Start Lantus 10 units subcutaneously with sliding scale insulin coverage. Critical Time Critical Time (minutes): 0 Level of Care: MEDICAL -: 1. The care of a critical patient is a dynamic process. This note is a patient intake representative synopsis but static in nature. The timeframe for treatments give n in order is not necessarily the actual time these treatments may have been done. 2. This patient requires critical care secondary to ongoing requirements for therapy not offered or safe outside the critical care environment. Transfer to a lower level of care will result in altered life or limb morbidity and mortality. 3. Multidisciplinary rounds completed. 4. ABCDE bundle addressed.
[2019-07-10] MEDS ORDERED: ONDANSETRON HCL INJ/PF 4 MG/2 ML SDV IV PRN (10:46)
[2019-07-10] MEDS ORDERED: ONDANSETRON HCL INJ/PF 4 MG/2 ML SDV ONE (10:46)
[2019-07-10] MEDS: INSULIN REG, HUMAN 100 UNIT/ML 3 ML VIAL (PYX) SUBCUT SCH ×3 (11:12→22:01)
[2019-07-10] MEDS: ESCITALOPRAM OXALATE 10 MG TABLET PO SCH (22:01)
[2019-07-10] MEDS: INSULIN GLARGINE,HUM.REC.ANLOG 1,000 UNIT/10 ML VIAL SUBCUT SCH (22:01)
[2019-07-11] MEDS ORDERED: SCOPOLAMINE HYDROBROMIDE 1.5 MG PATCH.TD72 ONE (02:57)
[2019-07-11] MEDS: CEFAZOLIN 1 GM/D5W RTU 1 GM/50 ML RTUPB IV SCH ×2 (04:01→17:53)
[2019-07-11] MEDS: SCOPOLAMINE HYDROBROMIDE 1.5 MG PATCH.TD72 TD SCH (04:01)
[2019-07-11] MEDS: CLINDAMYCIN 900 MG/D5W RTU 900 MG/50 ML RTUPB IV SCH ×3 (05:23→21:36)
[2019-07-11] MEDS: HEPARIN SOD (PORCINE) 5,000 UNIT/ML 1 ML VIAL SUBCUT SCH ×3 (05:23→21:37)
[2019-07-11] MEDS: INSULIN REG, HUMAN 100 UNIT/ML 3 ML VIAL (PYX) SUBCUT SCH ×4 (08:42→21:37)
[2019-07-11] MEDS: CARVEDILOL 12.5 MG TABLET PO SCH ×2 (09:48→21:36)
[2019-07-11] MEDS: CHOLECALCIFEROL (D3) 1,000 UNIT (25 MCG) TABLET PO SCH (09:48)
[2019-07-11] MEDS: ASCORBIC ACID 500 MG TABLET PO SCH (09:48)
[2019-07-11] MEDS: FAMOTIDINE 20 MG TABLET PO SCH (09:48)
[2019-07-11] MEDS: FUROSEMIDE 20 MG TABLET PO SCH (09:48)
[2019-07-11] MEDS: LOSARTAN POTASSIUM 50 MG TABLET PO SCH (09:48)
[2019-07-11] MEDS: PREDNISONE 20 MG TABLET PO SCH (09:48)
--- NOTE | 2019-07-11 10:21 | PDOC PROGRESS REPORT ---
Subjective Progress Note for:: 07/11/19 Subjective:: Patient was admitted for persistent hypotension, acute renal failure and hyperkalemia to ICU. Her renal function is improving. She reported dizziness that she described to me as the room is spinning around.she was unable to participate in physical therapy session due to severe dizziness as per her report. She claimed that her symptom started after her recent hemorrhagic stroke. There is associated headache and intermittent nausea and vomiting. She denied chest pain and difficulty with breathing. No reported fever or chills. She was transferred to service this morning. Reason For Visit: ACUTE RENAL FAILURE,DEHYDRATION Physical Exam Vital Signs: Temp Pulse Resp BP Pulse Ox 98.1 F 58 L 18 157/75 H 96 07/11/19 07:24 07/11/19 07:24 07/11/19 07:24 07/11/19 07:24 07/11/19 07:24 Intake & Output 07/10/19 07/11/19 07/12/19 06:59 06:59 06:59 Intake Total 200 620 50 Output Total 275 400 Balance -75 220 50 Weight 106.6 kg 106.8 kg General appearance: PRESENT: no acute distress, morbidly obese Head exam: PRESENT: atraumatic, normocephalic Eye exam: PRESENT: conjunctiva pink. ABSENT: scleral icterus Teeth exam: PRESENT: poor dentation Respiratory exam: PRESENT: clear to auscultation lele, decreased breath sounds - at lung bases Cardiovascular exam: PRESENT: RRR. ABSENT: diastolic murmur, rubs, systolic murmur Vascular exam: ABSENT: pallor GI/Abdominal exam: PRESENT: normal bowel sounds, soft. ABSENT: distended, guard ing, mass, organolmegaly, rebound, tenderness Extremities exam: ABSENT: pedal edema Neurological exam: PRESENT: alert, awake, oriented to person, oriented to place, oriented to time, oriented to situation, CN II-XII grossly intact. ABSENT: motor sensory deficit Psychiatric exam: PRESENT: appropriate affect, normal mood. ABSENT: homicidal ideation, suicidal ideation Skin exam: PRESENT: dry, warm, other - chronic left foot heel region stage 3 diabetic ulcer Results Laboratory Results: 07/10/19 04:26 07/10/19 04:26 07/08/19 10:30 Ankle - Left Gram Stain - Final 07/01/19 07/01/19 07/01/19 00:14 00:14 07:07 Creatine Kinase 33 Troponin I 0.014 < 0.012 NT-Pro-B Natriuret Pep 47707 H 07/01/19 07/02/19 23:42 05:32 Creatine Kinase Troponin I NT-Pro-B Natriuret Pep 9620 H 9700 H Impressions: Cervical Spine CT 07/01/19 01:02 IMPRESSION: 1. No acute findings of the cervical spine. Limitation. 2. Small patchy opacity-atelectasis partially imaged at the right lung apex. Similar pattern radiographs from April 2019. Recommend CR/CT surveillance including at 7-12 weeks following initiation of any clinically warranted therapy. Pelvis X-Ray 07/01/19 01:20 IMPRESSION: No acute displaced fracture is identified. Head CT 07/01/19 06:54 IMPRESSION: Findings consistent with sequela from the prior area of hemorrhage from March 2019 in the right temporal lobe with no evidence to suggest new hemorrhage. Abdomen/Pelvis CT 07/01/19 06:58 IMPRESSION: 1. Bilateral pleural effusions with anasarca consistent with some volume overload and/or third spacing. 2. Bilateral lower lung opacities consistent with atelectasis and/or pneumonia. 3. Cholelithiasis. 4. Diverticulosis. 5. Otherwise stable exam. Chest X-Ray 07/05/19 00:00 IMPRESSION: 1. Patchy airspace disease in the right perihilar region, right lower lobe and possibly left lower lobe. Findings may be due to edema, aspiration or pneumonia. 2. Stable prominence of the cardiac silhouette and remote postsurgical changes of the mediastinum. Assessment & Plan - Diagnosis (1) Acute kidney injury Is this a current diagnosis for this admission?: Yes Plan: Improving. Emphasized adequate oral fluid intake. (2) UTI (urinary tract infection) Qualifiers: Urinary tract infection type: acute cystitis Is this a current diagnosis for this admission?: Yes Plan: Continue IV antibiotic coverage. (3) Acute on chronic combined systolic and diastolic CHF, NYHA class 3 Is this a current diagnosis for this admission?: Yes Plan: Maintain on current guidelines directed CHF medication management. (4) Diabetes mellitus type 2 in obese Is this a current diagnosis for this admission?: Yes Plan: Maintain on current medication management and dietary caloric restrictions. (5) Decubitus ulcer of left heel, stage 4 Is this a current diagnosis for this admission?: Yes Plan: Maintain on daily and prn wet to dry dressing. (6) Hypertension Qualifiers: Hypertension type: essential hypertension Qualified Code(s): I10 - Essent ial (primary) hypertension Is this a current diagnosis for this admission?: Yes Plan: Continue current medication management. (7) Hyperlipidemia Qualifiers: Hyperlipidemia type: unspecified Qualified Code(s): E78.5 - Hyperlipidemia, unspecified Is this a current diagnosis for this admission?: Yes Plan: Continue current medication management. (8) CAD (coronary artery disease) Qualifiers: Coronary Disease-Associated Artery/Lesion type: unspecified vessel or lesion type [facility] vs. transplanted heart: minto heart Associated angina: without angina Qualified Code(s): I25.10 - Atherosclerotic heart disease of minto coronary artery without angina pectoris Is this a current diagnosis for this admission?: Yes Plan: Continue current medication management. (9) Chronic pain syndrome Is this a current diagnosis for this admission?: Yes Plan: Continue current medication management. (10) Chronic use of opiate for therapeutic purpose Is this a current diagnosis for this admission?: Yes Plan: Continue current medication management. (11) HLD (hyperlipidemia) Qualifiers: Hyperlipidemia type: pure hypercholesterolemia Qualified Code(s): E78.00 - Pure hypercholesterolemia, unspecified Is this a current diagnosis for this admission?: Yes Plan: Continue current medication management. (12) Vertigo as late effect of cerebrovascular accident (CVA) Is this a current diagnosis for this admission?: Yes Plan: Continue current medication management but on schedule dosing. PT evaluation. - Time Time Spent with patient: 25-34 minutes Level of Care: IMCU Medications reviewed and adjusted accordingly: Yes Anticipated discharge: Home with Homehealth Within: Other - Inpatient Certification Based on my medical assessment, after consideration of the patient's comorbidities, presenting symptoms, or acuity I expect that the services needed warrant INPATIENT care.: Yes I certify that my determination is in accordance with my understanding of Medicare's requirements for reasonable and necessary INPATIENT services [42 CFR 412.3e].: Yes Medical Necessity: Significant Comorbidiites Make Outpatient Treatment Too Risky, Need Close Monitoring Due to Risk of Patient Decompensation, Need For Continuous Telemetry Monitoring, Need for IV Antibiotics, Risk of Complication if Not Cared For in Hospital, Risk of Diagnosis Which Will Require Inpatient Eval/Care/Monitoring Post Hospital Care: D/C Bad Credit Collector Documentation - Plan Summary Plan Summary: See attending physician orders. Continue current medication management.
[2019-07-11] MEDS ORDERED: PREDNISONE 10 MG TABLET PO ONE ×2 (11:30→15:00)
[2019-07-11] MEDS: MECLIZINE HCL 12.5 MG TABLET PO SCH ×2 (14:33→17:53)
[2019-07-11] MEDS: MULTIVITAMINS W-IRON TABLET, CHEWABLE PO SCH (14:34)
[2019-07-11] MEDS: ESCITALOPRAM OXALATE 10 MG TABLET PO SCH (21:36)
[2019-07-11] MEDS: INSULIN GLARGINE,HUM.REC.ANLOG 1,000 UNIT/10 ML VIAL SUBCUT SCH (21:37)
[2019-07-12] MEDS: ACETAMINOPHEN 325 MG TABLET PO PRN (01:42)
[2019-07-12] MEDS: HEPARIN SOD (PORCINE) 5,000 UNIT/ML 1 ML VIAL SUBCUT SCH ×3 (05:31→21:56)
[2019-07-12] MEDS: CEFAZOLIN 1 GM/D5W RTU 1 GM/50 ML RTUPB IV SCH ×2 (05:31→17:36)
[2019-07-12] MEDS: CLINDAMYCIN 900 MG/D5W RTU 900 MG/50 ML RTUPB IV SCH ×3 (06:12→21:56)
[2019-07-12] MEDS: INSULIN REG, HUMAN 100 UNIT/ML 3 ML VIAL (PYX) SUBCUT SCH ×4 (07:40→21:56)
[2019-07-12] MEDS: PREDNISONE 10 MG TABLET PO SCH (09:35)
[2019-07-12] MEDS: MULTIVITAMINS W-IRON TABLET, CHEWABLE PO SCH (09:35)
[2019-07-12] MEDS: CHOLECALCIFEROL (D3) 1,000 UNIT (25 MCG) TABLET PO SCH (09:35)
[2019-07-12] MEDS: ASCORBIC ACID 500 MG TABLET PO SCH (09:35)
[2019-07-12] MEDS: CARVEDILOL 12.5 MG TABLET PO SCH ×2 (09:35→21:55)
[2019-07-12] MEDS: FAMOTIDINE 20 MG TABLET PO SCH (09:35)
[2019-07-12] MEDS: LOSARTAN POTASSIUM 50 MG TABLET PO SCH (09:35)
[2019-07-12] MEDS: FUROSEMIDE 20 MG TABLET PO SCH (09:36)
[2019-07-12] MEDS: MECLIZINE HCL 12.5 MG TABLET PO SCH ×3 (09:36→17:36)
--- NOTE | 2019-07-12 21:11 | PDOC PROGRESS REPORT ---
Subjective Progress Note for:: 07/12/19 Subjective:: Patient seen by the bedside she is alert she was admitted when she presented with acute kidney injury with a profound metabolic acidosis, hyperkalemia, she did not require hemodialysis Reason For Visit: ACUTE RENAL FAILURE,DEHYDRATION Physical Exam Vital Signs: Temp Pulse Resp BP Pulse Ox 97.7 F 63 18 168/78 H 99 07/12/19 19:47 07/12/19 19:47 07/12/19 19:47 07/12/19 19:47 07/12/19 19:47 Intake & Output 07/11/19 07/12/19 07/13/19 06:59 06:59 06:59 Intake Total 620 1130 1060 Output Total 400 Balance 220 1130 1060 Weight 106.8 kg 106.3 kg General appearance: PRESENT: no acute distress Eye exam: PRESENT: PERRLA Respiratory exam: PRESENT: clear to auscultation lele Cardiovascular exam: PRESENT: +S1, +S2 GI/Abdominal exam: PRESENT: soft Neurological exam: PRESENT: alert Results Laboratory Results: 07/10/19 04:26 07/10/19 04:26 07/08/19 10:30 Ankle - Left Gram Stain - Final 07/08/19 10:30 Ankle - Left Wound Culture - Final Morganella Morganii Enterococcus Faecalis(Group D) Skin [place] 07/01/19 07/01/19 07/01/19 00:14 00:14 07:07 Creatine Kinase 33 Troponin I 0.014 < 0.012 NT-Pro-B Natriuret Pep 40973 H 07/01/19 07/02/19 23:42 05:32 Creatine Kinase Troponin I NT-Pro-B Natriuret Pep 9620 H 9700 H Impressions: Cervical Spine CT 07/01/19 01:02 IMPRESSION: 1. No acute findings of the cervical spine. Limitation. 2. Small patchy opacity-atelectasis partially imaged at the right lung apex. Similar pattern radiographs from April 2019. Recommend CR/CT surveillance including at 7-12 weeks following initiation of any clinically warranted therapy. Pelvis X-Ray 07/01/19 01:20 IMPRESSION: No acute displaced fracture is identified. Head CT 07/01/19 06:54 IMPRESSION: Findings consistent with sequela from the prior area of hemorrhage from March 2019 in the right temporal lobe with no evidence to suggest new hemorrhage. Abdomen/Pelvis CT 07/01/19 06:58 IMPRESSION: 1. Bilateral pleural effusions with anasarca consistent with some volume overload and/or third spacing. 2. Bilateral lower lung opacities consistent with atelectasis and/or pneumonia. 3. Cholelithiasis. 4. Diverticulosis. 5. Otherwise stable exam. Chest X-Ray 07/05/19 00:00 IMPRESSION: 1. Patchy airspace disease in the right perihilar region, right lower lobe and possibly left lower lobe. Findings may be due to edema, aspiration or pneumonia. 2. Stable prominence of the cardiac silhouette and remote postsurgical changes of the mediastinum. Assessment & Plan - Diagnosis (1) Acute kidney injury Is this a current diagnosis for this admission?: Yes Plan: She has acute kidney injury but it is improving (2) Heart failure with preserved ejection fraction Qualifiers: Heart failure chronicity: acute on chronic Qualified Code(s): I50.33 - Acute on chronic diastolic (congestive) heart failure Is this a current diagnosis for this admission?: Yes (3) Acidosis, metabolic Is this a current diagnosis for this admission?: Yes (4) Aspiration into lower respiratory tract Qualifiers: Encounter type: initial encounter Qualified Code(s): T17.800A - Unspecified foreign body in other parts of respiratory tract causing asphyxiation, initial encounter Is this a current diagnosis for this admission?: Yes - Time Time Spent with patient: 25-34 minutes Level of Care: CU
[2019-07-12] MEDS: ESCITALOPRAM OXALATE 10 MG TABLET PO SCH (21:55)
[2019-07-12] MEDS: INSULIN GLARGINE,HUM.REC.ANLOG 1,000 UNIT/10 ML VIAL SUBCUT SCH (21:56)
[2019-07-13] MEDS: CEFAZOLIN 1 GM/D5W RTU 1 GM/50 ML RTUPB IV SCH ×2 (05:39→17:27)
[2019-07-13] MEDS: HEPARIN SOD (PORCINE) 5,000 UNIT/ML 1 ML VIAL SUBCUT SCH ×3 (05:40→22:13)
[2019-07-13] MEDS: CLINDAMYCIN 900 MG/D5W RTU 900 MG/50 ML RTUPB IV SCH ×3 (06:26→22:14)
[2019-07-13] MEDS: INSULIN REG, HUMAN 100 UNIT/ML 3 ML VIAL (PYX) SUBCUT SCH ×4 (08:43→22:13)
[2019-07-13] MEDS: FUROSEMIDE 20 MG TABLET PO SCH (10:36)
[2019-07-13] MEDS: ASCORBIC ACID 500 MG TABLET PO SCH (10:36)
[2019-07-13] MEDS: CARVEDILOL 12.5 MG TABLET PO SCH ×2 (10:36→22:13)
[2019-07-13] MEDS: PREDNISONE 10 MG TABLET PO SCH (10:36)
[2019-07-13] MEDS: LOSARTAN POTASSIUM 50 MG TABLET PO SCH (10:36)
[2019-07-13] MEDS: FAMOTIDINE 20 MG TABLET PO SCH (10:36)
[2019-07-13] MEDS: MECLIZINE HCL 12.5 MG TABLET PO SCH ×3 (10:36→17:27)
[2019-07-13] MEDS: CHOLECALCIFEROL (D3) 1,000 UNIT (25 MCG) TABLET PO SCH (10:36)
[2019-07-13] MEDS: MULTIVITAMINS W-IRON TABLET, CHEWABLE PO SCH (10:37)
--- NOTE | 2019-07-13 16:56 | PDOC PROGRESS REPORT ---
Subjective Progress Note for:: 07/13/19 Subjective:: She was seen by the bedside,she has no new complaints other than dizziness Reason For Visit: ACUTE RENAL FAILURE,DEHYDRATION Physical Exam Vital Signs: Temp Pulse Resp BP Pulse Ox 98.0 F 60 14 157/71 H 98 07/13/19 11:23 07/13/19 14:00 07/13/19 11:23 07/13/19 11:23 07/13/19 11:23 Intake & Output 07/12/19 07/13/19 07/14/19 06:59 06:59 06:59 Intake Total 1130 1450 521 Balance 1130 1450 521 Weight 106.3 kg 107.7 kg 107.7 kg General appearance: PRESENT: no acute distress Eye exam: PRESENT: PERRLA Respiratory exam: PRESENT: clear to auscultation lele Cardiovascular exam: PRESENT: +S1, +S2 Results Laboratory Results: 07/10/19 04:26 07/10/19 04:26 07/01/19 07/01/19 07/01/19 00:14 00:14 07:07 Creatine Kinase 33 Troponin I 0.014 < 0.012 NT-Pro-B Natriuret Pep 48507 H 07/01/19 07/02/19 23:42 05:32 Creatine Kinase Troponin I NT-Pro-B Natriuret Pep 9620 H 9700 H Impressions: Cervical Spine CT 07/01/19 01:02 IMPRESSION: 1. No acute findings of the cervical spine. Limitation. 2. Small patchy opacity-atelectasis partially imaged at the right lung apex. Similar pattern radiographs from April 2019. Recommend CR/CT surveillance including at 7-12 weeks following initiation of any clinically warranted therapy. Pelvis X-Ray 07/01/19 01:20 IMPRESSION: No acute displaced fracture is identified. Head CT 07/01/19 06:54 IMPRESSION: Findings consistent with sequela from the prior area of hemorrhage from March 2019 in the right temporal lobe with no evidence to suggest new hemorrhage. Abdomen/Pelvis CT 07/01/19 06:58 IMPRESSION: 1. Bilateral pleural effusions with anasarca consistent with some volume overload and/or third spacing. 2. Bilateral lower lung opacities consistent with atelectasis and/or pneumonia. 3. Cholelithiasis. 4. Diverticulosis. 5. Otherwise stable exam. Chest X-Ray 07/05/19 00:00 IMPRESSION: 1. Patchy airspace disease in the right perihilar region, right lower lobe and possibly left lower lobe. Findings may be due to edema, aspiration or pneumonia. 2. Stable prominence of the cardiac silhouette and remote postsurgical changes of the mediastinum. Assessment & Plan - Diagnosis (1) Acute kidney injury Is this a current diagnosis for this admission?: Yes (2) Heart failure with preserved ejection fraction Qualifiers: Heart failure chronicity: acute on chronic Qualified Code(s): I50.33 - Acute on chronic diastolic (congestive) heart failure Is this a current diagnosis for this admission?: Yes (3) Acidosis, metabolic Is this a current diagnosis for this admission?: Yes (4) Aspiration into lower respiratory tract Qualifiers: Encounter type: initial encounter Qualified Code(s): T17.800A - Unspecified foreign body in other parts of respiratory tract causing asphyxiation, initial encounter Is this a current diagnosis for this admission?: Yes - Time Time Spent with patient: 15-24 minutes Level of Care: IMCU
[2019-07-13 17:38] LABS: ABSOLUTE LYMPHOCYTES (AUTO) 0.8 10^3/uL (0.5-4.7); ABSOLUTE MONOCYTES (AUTO) 0.3 10^3/uL (0.1-1.4); BASOPHILS % (AUTO) 0.4 % (0-2); EOSINOPHILS % (AUTO) 0.5 % (0-6); HEMATOCRIT 29.2 % (36.0-47.0); HEMOGLOBIN 9.4 g/dL (12.0-15.5); LYMPHOCYTES % (AUTO) 15.2 % (13-45); MEAN CORPUSCULAR HGB CONC 32.3 g/dL (32.0-36.0); MEAN CORPUSCULAR VOLUME 93 fl (80-97); MONOCYTES % (AUTO) 6.2 % (3-13); PLATELET COUNT 100 10^3/uL (150-450); RED BLOOD COUNT 3.14 10^6/uL (3.72-5.28); RED CELL DISTRIBUTION WIDTH 17.9 % (11.5-14.0); SEGMENTED NEUTROPHILS % (AUTO) 77.7 % (42-78); TOTAL CELLS COUNTED % (AUTO) 100 %; WHITE BLOOD COUNT 5.1 10^3/uL (4.0-10.5)
[2019-07-13 19:01] LABS: ALBUMIN 3.1 g/dL (3.5-5.0); ALKALINE PHOSPHATASE 230 U/L (38-126); ANION GAP 6 (5-19); ASPARTATE AMINO TRANSFERASE 26 U/L (14-36); BILIRUBIN,DIRECT 0.1 mg/dL (0.0-0.4); BILIRUBIN,TOTAL 0.6 mg/dL (0.2-1.3); BLOOD UREA NITROGEN 60 mg/dL (7-20); CALCIUM 9.1 mg/dL (8.4-10.2); CARBON DIOXIDE 28 mmol/L (22-30); CHLORIDE 106 mmol/L (98-107); GLUCOSE 182 mg/dL (75-110); POTASSIUM 4.9 mmol/L (3.6-5.0); TOTAL PROTEIN 7.5 g/dL (6.3-8.2)
[2019-07-13] MEDS: ESCITALOPRAM OXALATE 10 MG TABLET PO SCH (22:13)
[2019-07-13] MEDS: INSULIN GLARGINE,HUM.REC.ANLOG 1,000 UNIT/10 ML VIAL SUBCUT SCH (22:14)
[2019-07-14] MEDS: ACETAMINOPHEN 325 MG TABLET PO PRN (00:45)
[2019-07-14] MEDS: SCOPOLAMINE HYDROBROMIDE 1.5 MG PATCH.TD72 TD SCH (03:18)
[2019-07-14] MEDS: CEFAZOLIN 1 GM/D5W RTU 1 GM/50 ML RTUPB IV SCH ×2 (05:43→17:18)
[2019-07-14 05:59] LABS: ABSOLUTE EOSINOPHILS # (AUTO) 0.1 10^3/uL (0.0-0.6); ABSOLUTE LYMPHOCYTES (AUTO) 1.1 10^3/uL (0.5-4.7); ABSOLUTE MONOCYTES (AUTO) 0.7 10^3/uL (0.1-1.4); BASOPHILS % (AUTO) 0.8 % (0-2); EOSINOPHILS % (AUTO) 1.3 % (0-6); HEMATOCRIT 25.9 % (36.0-47.0); HEMOGLOBIN 8.6 g/dL (12.0-15.5); LYMPHOCYTES % (AUTO) 18.5 % (13-45); MEAN CORPUSCULAR HEMOGLOBIN 30.9 pg (27.0-33.4); MEAN CORPUSCULAR HGB CONC 33.2 g/dL (32.0-36.0); MEAN CORPUSCULAR VOLUME 93 fl (80-97); MONOCYTES % (AUTO) 11.6 % (3-13); PLATELET COUNT 171 10^3/uL (150-450); RED BLOOD COUNT 2.79 10^6/uL (3.72-5.28); SEGMENTED NEUTROPHILS % (AUTO) 67.8 % (42-78); TOTAL CELLS COUNTED % (AUTO) 100 %; WHITE BLOOD COUNT 5.9 10^3/uL (4.0-10.5)
[2019-07-14] MEDS: CLINDAMYCIN 900 MG/D5W RTU 900 MG/50 ML RTUPB IV SCH ×3 (06:10→22:45)
[2019-07-14] MEDS: HEPARIN SOD (PORCINE) 5,000 UNIT/ML 1 ML VIAL SUBCUT SCH ×3 (06:14→22:47)
[2019-07-14 06:15] LABS: ALBUMIN 3.1 g/dL (3.5-5.0); ALKALINE PHOSPHATASE 235 U/L (38-126); ANION GAP 5 (5-19); ASPARTATE AMINO TRANSFERASE 24 U/L (14-36); BILIRUBIN,DIRECT 0.2 mg/dL (0.0-0.4); BILIRUBIN,TOTAL 0.7 mg/dL (0.2-1.3); BLOOD UREA NITROGEN 58 mg/dL (7-20); CALCIUM 9.2 mg/dL (8.4-10.2); CARBON DIOXIDE 29 mmol/L (22-30); CHLORIDE 107 mmol/L (98-107); GLUCOSE 107 mg/dL (75-110); POTASSIUM 4.6 mmol/L (3.6-5.0); TOTAL PROTEIN 7.5 g/dL (6.3-8.2)
[2019-07-14] MEDS: INSULIN REG, HUMAN 100 UNIT/ML 3 ML VIAL (PYX) SUBCUT SCH ×4 (09:47→22:51)
[2019-07-14] MEDS: CARVEDILOL 12.5 MG TABLET PO SCH ×2 (10:02→22:51)
[2019-07-14] MEDS: FUROSEMIDE 20 MG TABLET PO SCH (10:02)
[2019-07-14] MEDS: FAMOTIDINE 20 MG TABLET PO SCH (10:02)
[2019-07-14] MEDS: ASCORBIC ACID 500 MG TABLET PO SCH (10:02)
[2019-07-14] MEDS: MULTIVITAMINS W-IRON TABLET, CHEWABLE PO SCH (10:02)
[2019-07-14] MEDS: LOSARTAN POTASSIUM 50 MG TABLET PO SCH (10:02)
[2019-07-14] MEDS: PREDNISONE 10 MG TABLET PO SCH (10:02)
[2019-07-14] MEDS: MECLIZINE HCL 12.5 MG TABLET PO SCH ×3 (10:02→17:18)
[2019-07-14] MEDS: CHOLECALCIFEROL (D3) 1,000 UNIT (25 MCG) TABLET PO SCH (10:02)
--- NOTE | 2019-07-14 16:10 | RADIOLOGY REPORT (SQ) ---
EXAM DESCRIPTION: MRI HEAD WITHOUT IMAGES COMPLETED DATE/TIME: 07/14/2019 3:55 pm REASON FOR STUDY: SUSPECT CEREBELLAR INFARCT COMPARISON: CT dated 07/01/2019. TECHNIQUE: Multiplanar imaging includes non-contrasted T1, T2, FLAIR, and diffusion with ADC map seq uences. Images stored on PACS. LIMITATIONS: Significant motion artifact. FINDINGS: ANATOMY: No anomalies. Normal vascular flow voids. Pituitary fossa normal. CSF SPACES: Atrophy induced prominence of ventricles and CSF spaces. CEREBRUM: High signal intensity lesions scattered throughout the white matter on FLAIR imaging with d istribution suggesting micro-vascular ischemic changes. Old infarct in the right temporal lobe. No evidence of hemorrhage, mass, or extraaxial fluid collection. POSTERIOR FOSSA: No signal alteration. No hemorrhage. No edema, masses or mass effect. Internal stacey tory canals, cerebello-pontine angles, mastoids normal. DIFFUSION IMAGING: Negative for acute or sub-acute infarction. ORBITS: No masses. Globes normal. PARANASAL SINUSES: No fluid levels. Mucosa normal. OTHER: No other significant finding. IMPRESSION: STUDY MARKEDLY LIMITED DUE TO MOTION ARTIFACT. ATROPHY AND CHRONIC MICRO-VASCULAR ISCHE NEAL CHANGES. OLD INFARCT IN THE RIGHT TEMPORAL LOBE. NO APPARENT ACUTE FINDINGS. EVIDENCE OF ACUTE STROKE: NO. TECHNICAL DOCUMENTATION: JOB ID: [id number] 2010 [employer]- All Rights Reserved Reading location - IP/workstation name: [email or web address]
--- NOTE | 2019-07-14 16:59 | PDOC PROGRESS REPORT ---
Subjective Progress Note for:: 07/14/19 Subjective:: Patient seen by the bedside, she complains of dizziness, sensation of spinning of the surrounding consistent with vertigo. MRI brain was obtained, demonstrated old infarct in the right temporal lobe, there is no hemorrhage or mass there is no cerebellar infarct. Reason For Visit: ACUTE RENAL FAILURE,DEHYDRATION Physical Exam Vital Signs: Temp Pulse Resp BP Pulse Ox 98.2 F 63 16 153/65 H 98 07/14/19 13:16 07/14/19 14:00 07/14/19 13:16 07/14/19 13:16 07/14/19 13:16 Intake & Output 07/13/19 07/14/19 07/15/19 06:59 06:59 06:59 Intake Total 1450 1432 400 Output Total 2 250 Balance 1450 1430 150 Weight 107.7 kg 105.5 kg General appearance: PRESENT: no acute distress Eye exam: PRESENT: PERRLA Respiratory exam: PRESENT: clear to auscultation lele Cardiovascular exam: PRESENT: +S1, +S2 GI/Abdominal exam: PRESENT: soft Neurological exam: PRESENT: alert Results Laboratory Results: 07/14/19 05:44 07/14/19 05:44 07/13/19 07/13/19 07/14/19 17:20 18:38 05:44 WBC 5.1 5.9 RBC 3.14 L 2.79 L Hgb 9.4 L 8.6 L Hct 29.2 L 25.9 L MCV 93 93 MCH 30.0 30.9 MCHC 32.3 33.2 RDW 17.9 H 18.0 H Plt Count 100 L 171 Seg Neutrophils % 77.7 67.8 Sodium 140.4 Potassium 4.9 Chloride 106 Carbon Dioxide 28 Anion Gap 6 BUN 60 H Creatinine 1.38 H Est GFR ( Amer) 46 L Glucose 182 H Calcium 9.1 Total Bilirubin 0.6 AST 26 Alkaline Phosphatase 230 H Total Protein 7.5 Albumin 3.1 L 07/14/19 05:44 WBC RBC Hgb Hct MCV MCH MCHC RDW Plt Count Seg Neutrophils % Sodium 140.8 Potassium 4.6 Chloride 107 Carbon Dioxide 29 Anion Gap 5 BUN 58 H Creatinine 1.34 H Est GFR ( Amer) 48 L Glucose 107 Calcium 9.2 Total Bilirubin 0.7 AST 24 Alkaline Phosphatase 235 H Total Protein 7.5 Albumin 3.1 L 07/01/19 07/01/19 07/01/19 00:14 00:14 07:07 Creatine Kinase 33 Troponin I 0.014 < 0.012 NT-Pro-B Natriuret Pep 84666 H 07/01/19 07/02/19 23:42 05:32 Creatine Kinase Troponin I NT-Pro-B Natriuret Pep 9620 H 9700 H Impressions: Cervical Spine CT 07/01/19 01:02 IMPRESSION: 1. No acute findings of the cervical spine. Limitation. 2. Small patchy opacity-atelectasis partially imaged at the right lung apex. Similar pattern radiographs from April 2019. Recommend CR/CT surveillance including at 7-12 weeks following initiation of any clinically warranted therapy. Pelvis X-Ray 07/01/19 01:20 IMPRESSION: No acute displaced fracture is identified. Head CT 07/01/19 06:54 IMPRESSION: Findings consistent with sequela from the prior area of hemorrhage from March 2019 in the right temporal lobe with no evidence to suggest new hemorrhage. Abdomen/Pelvis CT 07/01/19 06:58 IMPRESSION: 1. Bilateral pleural effusions with anasarca consistent with some volume overload and/or third spacing. 2. Bilateral lower lung opacities consistent with atelectasis and/or pneumonia. 3. Cholelithiasis. 4. Diverticulosis. 5. Otherwise stable exam. Chest X-Ray 07/05/19 00:00 IMPRESSION: 1. Patchy airspace disease in the right perihilar region, right lower lobe and possibly left lower lobe. Findings may be due to edema, aspiration or pneumonia. 2. Stable prominence of the cardiac silhouette and remote postsurgical changes of the mediastinum. Head MRI 07/14/19 00:00 IMPRESSION: STUDY MARKEDLY LIMITED DUE TO MOTION ARTIFACT. ATROPHY AND CHRONIC MICRO-VASCULAR ISCHEMIC CHANGES. OLD INFARCT IN THE RIGHT TEMPORAL LOBE. NO APPARENT ACUTE FINDINGS. EVIDENCE OF ACUTE STROKE: NO. Assessment & Plan - Diagnosis (1) Acute kidney injury Is this a current diagnosis for this admission?: Yes Plan: Improved (2) Heart failure with preserved ejection fraction Qualifiers: Heart failure chronicity: acute on chronic Qualified Code(s): I50.33 - Acute on chronic diastolic (congestive) heart failure Is this a current diagnosis for this admission?: Yes Plan: Continue treatment (3) Acidosis, metabolic Is this a current diagnosis for this admission?: Yes (4) Aspiration into lower respiratory tract Qualifiers: Encounter type: initial encounter Qualified Code(s): T17.800A - Unspecified foreign body in other parts of respiratory tract causing asphyxiation, initial encounter Is this a current diagnosis for this admission?: Yes - Time Time Spent with patient: 15-24 minutes Level of Care: IMCU
[2019-07-14] MEDS ORDERED: AMLODIPINE BESYLATE 10 MG TABLET PO ONE (19:00)
[2019-07-14] MEDS: ESCITALOPRAM OXALATE 10 MG TABLET PO SCH (22:50)
[2019-07-14] MEDS: INSULIN GLARGINE,HUM.REC.ANLOG 1,000 UNIT/10 ML VIAL SUBCUT SCH (22:50)
[2019-07-15] MEDS: CEFAZOLIN 1 GM/D5W RTU 1 GM/50 ML RTUPB IV SCH (04:24)
[2019-07-15] MEDS: INSULIN REG, HUMAN 100 UNIT/ML 3 ML VIAL (PYX) SUBCUT SCH ×4 (07:58→21:26)
[2019-07-15] MEDS: CLINDAMYCIN 900 MG/D5W RTU 900 MG/50 ML RTUPB IV SCH ×2 (08:15→13:36)
[2019-07-15] MEDS: HEPARIN SOD (PORCINE) 5,000 UNIT/ML 1 ML VIAL SUBCUT SCH ×3 (08:16→21:29)
[2019-07-15] MEDS: AMLODIPINE BESYLATE 10 MG TABLET PO SCH (09:09)
[2019-07-15] MEDS: FAMOTIDINE 20 MG TABLET PO SCH (09:09)
[2019-07-15] MEDS: FUROSEMIDE 20 MG TABLET PO SCH (09:09)
[2019-07-15] MEDS: CHOLECALCIFEROL (D3) 1,000 UNIT (25 MCG) TABLET PO SCH (09:09)
[2019-07-15] MEDS: MULTIVITAMINS W-IRON TABLET, CHEWABLE PO SCH (09:09)
[2019-07-15] MEDS: PREDNISONE 10 MG TABLET PO SCH (09:09)
[2019-07-15] MEDS: MECLIZINE HCL 12.5 MG TABLET PO SCH ×3 (09:09→17:02)
[2019-07-15] MEDS: LOSARTAN POTASSIUM 50 MG TABLET PO SCH (09:09)
[2019-07-15] MEDS: CARVEDILOL 12.5 MG TABLET PO SCH ×2 (09:09→21:29)
[2019-07-15] MEDS: ASCORBIC ACID 500 MG TABLET PO SCH (09:09)
--- NOTE | 2019-07-15 15:53 | PDOC PROGRESS REPORT ---
Subjective Progress Note for:: 07/15/19 Subjective:: Patient seen by the bedside, MRI brain that was done yesterday demonstrated old right temporal lobe infarct, no new acute infarct from the diffusion-weighted imaging Reason For Visit: ACUTE RENAL FAILURE,DEHYDRATION Physical Exam Vital Signs: Temp Pulse Resp BP Pulse Ox 97.8 F 57 L 16 149/69 H 95 07/15/19 12:23 07/15/19 14:00 07/15/19 12:23 07/15/19 12:23 07/15/19 12:23 Intake & Output 07/14/19 07/15/19 07/16/19 06:59 06:59 06:59 Intake Total 1432 722 272 Output Total 2 500 Balance 1430 222 272 Weight 105.5 kg 106.3 kg General appearance: PRESENT: no acute distress Eye exam: PRESENT: PERRLA Respiratory exam: PRESENT: clear to auscultation lele Cardiovascular exam: PRESENT: +S1, +S2 Results Laboratory Results: 07/14/19 05:44 07/14/19 05:44 07/01/19 07/01/19 07/01/19 00:14 00:14 07:07 Creatine Kinase 33 Troponin I 0.014 < 0.012 NT-Pro-B Natriuret Pep 88267 H 07/01/19 07/02/19 23:42 05:32 Creatine Kinase Troponin I NT-Pro-B Natriuret Pep 9620 H 9700 H Impressions: Cervical Spine CT 07/01/19 01:02 IMPRESSION: 1. No acute findings of the cervical spine. Limitation. 2. Small patchy opacity-atelectasis partially imaged at the right lung apex. Similar pattern radiographs from April 2019. Recommend CR/CT surveillance including at 7-12 weeks following initiation of any clinically warranted therapy. Pelvis X-Ray 07/01/19 01:20 IMPRESSION: No acute displaced fracture is identified. Head CT 07/01/19 06:54 IMPRESSION: Findings consistent with sequela from the prior area of hemorrhage from March 2019 in the right temporal lobe with no evidence to suggest new hemorrhage. Abdomen/Pelvis CT 07/01/19 06:58 IMPRESSION: 1. Bilateral pleural effusions with anasarca consistent with some volume overload and/or third spacing. 2. Bilateral lower lung opacities consistent with atelectasis and/or pneumonia. 3. Cholelithiasis. 4. Diverticulosis. 5. Otherwise stable exam. Chest X-Ray 07/05/19 00:00 IMPRESSION: 1. Patchy airspace disease in the right perihilar region, right lower lobe and possibly left lower lobe. Findings may be due to edema, aspiration or pneumonia. 2. Stable prominence of the cardiac silhouette and remote postsurgical changes of the mediastinum. Head MRI 07/14/19 00:00 IMPRESSION: STUDY MARKEDLY LIMITED DUE TO MOTION ARTIFACT. ATROPHY AND CHRONIC MICRO-VASCULAR ISCHEMIC CHANGES. OLD INFARCT IN THE RIGHT TEMPORAL LOBE. NO APPARENT ACUTE FINDINGS. EVIDENCE OF ACUTE STROKE: NO. Assessment & Plan - Diagnosis (1) Acute kidney injury Is this a current diagnosis for this admission?: Yes Plan: Improved (2) Heart failure with preserved ejection fraction Qualifiers: Heart failure chronicity: acute on chronic Qualified Code(s): I50.33 - Acute on chronic diastolic (congestive) heart failure Is this a current diagnosis for this admission?: Yes Plan: Continue treatment (3) Acidosis, metabolic Is this a current diagnosis for this admission?: Yes (4) Aspiration into lower respiratory tract Qualifiers: Encounter type: initial encounter Qualified Code(s): T17.800A - Unspecified foreign body in other parts of respiratory tract causing asphyxiation, initial encounter Is this a current diagnosis for this admission?: Yes - Time Time Spent with patient: 15-24 minutes Level of Care: IMCU
[2019-07-15] MEDS: ESCITALOPRAM OXALATE 10 MG TABLET PO SCH (21:29)
[2019-07-15] MEDS: INSULIN GLARGINE,HUM.REC.ANLOG 1,000 UNIT/10 ML VIAL SUBCUT SCH (21:30)
[2019-07-15] MEDS: ACETAMINOPHEN 325 MG TABLET PO PRN (21:46)
[2019-07-16] MEDS: HEPARIN SOD (PORCINE) 5,000 UNIT/ML 1 ML VIAL SUBCUT SCH ×3 (06:14→23:10)
[2019-07-16] MEDS: DOCUSATE SODIUM 100 MG CAPSULE PO PRN (06:18)
[2019-07-16] MEDS: INSULIN REG, HUMAN 100 UNIT/ML 3 ML VIAL (PYX) SUBCUT SCH ×4 (07:42→22:00)
[2019-07-16] MEDS: FAMOTIDINE 20 MG TABLET PO SCH (09:11)
[2019-07-16] MEDS: ASCORBIC ACID 500 MG TABLET PO SCH (09:11)
[2019-07-16] MEDS: MECLIZINE HCL 12.5 MG TABLET PO SCH ×3 (09:11→17:02)
[2019-07-16] MEDS: AMLODIPINE BESYLATE 10 MG TABLET PO SCH (09:11)
[2019-07-16] MEDS: PREDNISONE 10 MG TABLET PO SCH (09:11)
[2019-07-16] MEDS: LOSARTAN POTASSIUM 50 MG TABLET PO SCH (09:11)
[2019-07-16] MEDS: CHOLECALCIFEROL (D3) 1,000 UNIT (25 MCG) TABLET PO SCH (09:11)
[2019-07-16] MEDS: MULTIVITAMINS W-IRON TABLET, CHEWABLE PO SCH (09:11)
[2019-07-16] MEDS: CARVEDILOL 12.5 MG TABLET PO SCH ×2 (09:11→22:00)
[2019-07-16] MEDS: FUROSEMIDE 20 MG TABLET PO SCH (09:11)
[2019-07-16] MEDS: INSULIN GLARGINE,HUM.REC.ANLOG 1,000 UNIT/10 ML VIAL SUBCUT SCH (22:00)
[2019-07-16] MEDS: ESCITALOPRAM OXALATE 10 MG TABLET PO SCH (22:00)
--- NOTE | 2019-07-16 22:20 | PDOC PROGRESS REPORT ---
Subjective Progress Note for:: 07/16/19 Subjective:: Patient seen by the bedside she is less dizzy Reason For Visit: ACUTE RENAL FAILURE,DEHYDRATION Physical Exam Vital Signs: Temp Pulse Resp BP Pulse Ox 97.8 F 64 16 149/66 H 97 07/16/19 07:36 07/16/19 19:00 07/16/19 07:36 07/16/19 07:36 07/16/19 16:41 Intake & Output 07/15/19 07/16/19 07/17/19 06:59 06:59 06:59 Intake Total 722 508 762 Output Total 500 150 Balance 222 358 762 Weight 106.3 kg 106.3 kg General appearance: PRESENT: no acute distress Eye exam: PRESENT: PERRLA Respiratory exam: PRESENT: clear to auscultation lele Cardiovascular exam: PRESENT: +S1, +S2 GI/Abdominal exam: PRESENT: soft Neurological exam: PRESENT: alert Results Laboratory Results: 07/14/19 05:44 07/14/19 05:44 07/01/19 07/01/19 07/01/19 00:14 00:14 07:07 Creatine Kinase 33 Troponin I 0.014 < 0.012 NT-Pro-B Natriuret Pep 09140 H 07/01/19 07/02/19 23:42 05:32 Creatine Kinase Troponin I NT-Pro-B Natriuret Pep 9620 H 9700 H Impressions: Cervical Spine CT 07/01/19 01:02 IMPRESSION: 1. No acute findings of the cervical spine. Limitation. 2. Small patchy opacity-atelectasis partially imaged at the right lung apex. Similar pattern radiographs from April 2019. Recommend CR/CT surveillance including at 7-12 weeks following initiation of any clinically warranted therapy. Pelvis X-Ray 07/01/19 01:20 IMPRESSION: No acute displaced fracture is identified. Head CT 07/01/19 06:54 IMPRESSION: Findings consistent with sequela from the prior area of hemorrhage from March 2019 in the right temporal lobe with no evidence to suggest new hemorrhage. Abdomen/Pelvis CT 07/01/19 06:58 IMPRESSION: 1. Bilateral pleural effusions with anasarca consistent with some volume overload and/or third spacing. 2. Bilateral lower lung opacities consistent with atelectasis and/or pneumonia. 3. Cholelithiasis. 4. Diverticulosis. 5. Otherwise stable exam. Chest X-Ray 07/05/19 00:00 IMPRESSION: 1. Patchy airspace disease in the right perihilar region, right lower lobe and possibly left lower lobe. Findings may be due to edema, aspiration or pneumonia. 2. Stable prominence of the cardiac silhouette and remote postsurgical changes of the mediastinum. Head MRI 07/14/19 00:00 IMPRESSION: STUDY MARKEDLY LIMITED DUE TO MOTION ARTIFACT. ATROPHY AND CHRONIC MICRO-VASCULAR ISCHEMIC CHANGES. OLD INFARCT IN THE RIGHT TEMPORAL LOBE. NO APPARENT ACUTE FINDINGS. EVIDENCE OF ACUTE STROKE: NO. Assessment & Plan - Diagnosis (1) Acute kidney injury Is this a current diagnosis for this admission?: Yes Plan: Improved (2) Heart failure with preserved ejection fraction Qualifiers: Heart failure chronicity: acute on chronic Qualified Code(s): I50.33 - Acute on chronic diastolic (congestive) heart failure Is this a current diagnosis for this admission?: Yes Plan: Continue treatment (3) Acidosis, metabolic Is this a current diagnosis for this admission?: Yes (4) Aspiration into lower respiratory tract Qualifiers: Encounter type: initial encounter Qualified Code(s): T17.800A - Unspecified foreign body in other parts of respiratory tract causing asphyxiation, initial encounter Is this a current diagnosis for this admission?: Yes - Time Time Spent with patient: 25-34 minutes Level of Care: IMCU
[2019-07-16 22:47] LABS: ABSOLUTE LYMPHOCYTES (AUTO) 0.8 10^3/uL (0.5-4.7); ABSOLUTE MONOCYTES (AUTO) 0.5 10^3/uL (0.1-1.4); ABSOLUTE NEUT (AUTO) 3.2 10^3/uL (1.7-8.2); BASOPHILS % (AUTO) 0.4 % (0-2); EOSINOPHILS % (AUTO) 0.4 % (0-6); HEMATOCRIT 26.7 % (36.0-47.0); HEMOGLOBIN 8.7 g/dL (12.0-15.5); LYMPHOCYTES % (AUTO) 18.5 % (13-45); MEAN CORPUSCULAR HEMOGLOBIN 30.7 pg (27.0-33.4); MEAN CORPUSCULAR HGB CONC 32.7 g/dL (32.0-36.0); MEAN CORPUSCULAR VOLUME 94 fl (80-97); MONOCYTES % (AUTO) 10.5 % (3-13); PLATELET COUNT 141 10^3/uL (150-450); RED BLOOD COUNT 2.85 10^6/uL (3.72-5.28); RED CELL DISTRIBUTION WIDTH 18.5 % (11.5-14.0); SEGMENTED NEUTROPHILS % (AUTO) 70.2 % (42-78); TOTAL CELLS COUNTED % (AUTO) 100 %; WHITE BLOOD COUNT 4.5 10^3/uL (4.0-10.5)
[2019-07-16 23:11] LABS: ALBUMIN 3.4 g/dL (3.5-5.0); ALKALINE PHOSPHATASE 208 U/L (38-126); ASPARTATE AMINO TRANSFERASE 20 U/L (14-36); BILIRUBIN,DIRECT 0.1 mg/dL (0.0-0.4); BILIRUBIN,TOTAL 0.7 mg/dL (0.2-1.3); BLOOD UREA NITROGEN 42 mg/dL (7-20); CALCIUM 9.2 mg/dL (8.4-10.2); GLUCOSE 164 mg/dL (75-110); POTASSIUM 4.7 mmol/L (3.6-5.0); TOTAL PROTEIN 7.8 g/dL (6.3-8.2)
[2019-07-16 23:17] LABS: ANION GAP 5 (5-19); CARBON DIOXIDE 32 mmol/L (22-30); CHLORIDE 105 mmol/L (98-107)
[2019-07-17] MEDS: SCOPOLAMINE HYDROBROMIDE 1.5 MG PATCH.TD72 TD SCH (03:32)
[2019-07-17] MEDS: HEPARIN SOD (PORCINE) 5,000 UNIT/ML 1 ML VIAL SUBCUT SCH ×3 (05:31→21:16)
[2019-07-17 05:43] LABS: ABSOLUTE EOSINOPHILS # (AUTO) 0.1 10^3/uL (0.0-0.6); ABSOLUTE LYMPHOCYTES (AUTO) 1.2 10^3/uL (0.5-4.7); ABSOLUTE MONOCYTES (AUTO) 0.6 10^3/uL (0.1-1.4); ABSOLUTE NEUT (AUTO) 2.5 10^3/uL (1.7-8.2); BASOPHILS % (AUTO) 0.8 % (0-2); EOSINOPHILS % (AUTO) 1.5 % (0-6); HEMATOCRIT 25.8 % (36.0-47.0); HEMOGLOBIN 8.5 g/dL (12.0-15.5); LYMPHOCYTES % (AUTO) 26.9 % (13-45); MEAN CORPUSCULAR HEMOGLOBIN 30.9 pg (27.0-33.4); MEAN CORPUSCULAR HGB CONC 32.9 g/dL (32.0-36.0); MEAN CORPUSCULAR VOLUME 94 fl (80-97); MONOCYTES % (AUTO) 13.3 % (3-13); PLATELET COUNT 131 10^3/uL (150-450); RED BLOOD COUNT 2.74 10^6/uL (3.72-5.28); SEGMENTED NEUTROPHILS % (AUTO) 57.5 % (42-78); TOTAL CELLS COUNTED % (AUTO) 100 %; WHITE BLOOD COUNT 4.4 10^3/uL (4.0-10.5)
[2019-07-17 06:04] LABS: ALBUMIN 3.2 g/dL (3.5-5.0); ALKALINE PHOSPHATASE 203 U/L (38-126); ANION GAP 7 (5-19); ASPARTATE AMINO TRANSFERASE 19 U/L (14-36); BILIRUBIN,DIRECT 0.1 mg/dL (0.0-0.4); BILIRUBIN,TOTAL 0.8 mg/dL (0.2-1.3); BLOOD UREA NITROGEN 41 mg/dL (7-20); CALCIUM 9.1 mg/dL (8.4-10.2); CARBON DIOXIDE 29 mmol/L (22-30); CHLORIDE 106 mmol/L (98-107); GLUCOSE 100 mg/dL (75-110); POTASSIUM 4.7 mmol/L (3.6-5.0); TOTAL PROTEIN 7.3 g/dL (6.3-8.2)
[2019-07-17] MEDS: INSULIN REG, HUMAN 100 UNIT/ML 3 ML VIAL (PYX) SUBCUT SCH ×4 (08:18→21:31)
[2019-07-17] MEDS: ASCORBIC ACID 500 MG TABLET PO SCH (09:50)
[2019-07-17] MEDS: CHOLECALCIFEROL (D3) 1,000 UNIT (25 MCG) TABLET PO SCH (09:50)
[2019-07-17] MEDS: LOSARTAN POTASSIUM 50 MG TABLET PO SCH (09:50)
[2019-07-17] MEDS: AMLODIPINE BESYLATE 10 MG TABLET PO SCH (09:50)
[2019-07-17] MEDS: MULTIVITAMINS W-IRON TABLET, CHEWABLE PO SCH (09:50)
[2019-07-17] MEDS: FUROSEMIDE 20 MG TABLET PO SCH (09:50)
[2019-07-17] MEDS: CARVEDILOL 12.5 MG TABLET PO SCH ×2 (09:50→21:17)
[2019-07-17] MEDS: MECLIZINE HCL 12.5 MG TABLET PO SCH ×3 (09:51→17:31)
[2019-07-17] MEDS: FAMOTIDINE 20 MG TABLET PO SCH (09:51)
[2019-07-17] MEDS: PREDNISONE 10 MG TABLET PO SCH (09:51)
--- NOTE | 2019-07-17 20:52 | PDOC PROGRESS REPORT ---
Subjective Progress Note for:: 07/17/19 Subjective:: Patient reported persistence dizziness and headache. No nausea or vomiting. No chest pain or difficulty with breathing. Tolerating oral intake. No fever or chills. Reason For Visit: ACUTE RENAL FAILURE,DEHYDRATION Physical Exam Vital Signs: Temp Pulse Resp BP Pulse Ox 99.0 F 60 18 147/67 H 96 07/17/19 16:42 07/17/19 16:42 07/17/19 16:42 07/17/19 16:42 07/17/19 16:42 Intake & Output 07/16/19 07/17/19 07/18/19 06:59 06:59 06:59 Intake Total 508 1105 Output Total 150 200 Balance 358 905 Weight 106.3 kg 102.7 kg Physical Exam: General appearance: PRESENT: no acute distress, morbidly obese Head exam: PRESENT: atraumatic, normocephalic Eye exam: PRESENT: conjunctiva pink. ABSENT: pallor, scleral icterus Teeth exam: PRESENT: poor dentition Respiratory exam: PRESENT: clear to auscultation lele, decreased breath sounds - at lung bases Cardiovascular exam: PRESENT: RRR. ABSENT: diastolic murmur, rubs, systolic murmur GI/Abdominal exam: PRESENT: normal bowel sounds, soft. ABSENT: distended, gua rding, mass, organomegaly, rebound, tenderness Extremities exam: ABSENT: pedal edema Neurological exam: PRESENT: alert, awake, oriented to person, oriented to place, oriented to time, oriented to situation, CN II-XII grossly intact. ABSENT: motor sensory deficit Psychiatric exam: PRESENT: appropriate affect, normal mood. ABSENT: homicidal ideation, suicidal ideation Skin exam: PRESENT: dry, warm, other - chronic left foot heel region stage 3 diabetic ulcer Results Laboratory Results: 07/17/19 04:48 07/17/19 04:48 07/16/19 07/16/19 07/17/19 22:41 22:41 04:48 WBC 4.5 4.4 RBC 2.85 L 2.74 L Hgb 8.7 L 8.5 L Hct 26.7 L 25.8 L MCV 94 94 MCH 30.7 30.9 MCHC 32.7 32.9 RDW 18.5 H 19.0 H Plt Count 141 L 131 L Seg Neutrophils % 70.2 57.5 Sodium 142.0 Potassium 4.7 Chloride 105 Carbon Dioxide 32 H Anion Gap 5 BUN 42 H Creatinine 1.03 Est GFR ( Amer) > 60 Glucose 164 H Calcium 9.2 Total Bilirubin 0.7 AST 20 Alkaline Phosphatase 208 H Total Protein 7.8 Albumin 3.4 L 07/17/19 04:48 WBC RBC Hgb Hct MCV MCH MCHC RDW Plt Count Seg Neutrophils % Sodium 142.4 Potassium 4.7 Chloride 106 Carbon Dioxide 29 Anion Gap 7 BUN 41 H Creatinine 0.93 Est GFR ( Amer) > 60 Glucose 100 Calcium 9.1 Total Bilirubin 0.8 AST 19 Alkaline Phosphatase 203 H Total Protein 7.3 Albumin 3.2 L 07/01/19 07/01/19 07/01/19 00:14 00:14 07:07 Creatine Kinase 33 Troponin I 0.014 < 0.012 NT-Pro-B Natriuret Pep 79084 H 07/01/19 07/02/19 23:42 05:32 Creatine Kinase Troponin I NT-Pro-B Natriuret Pep 9620 H 9700 H Impressions: Cervical Spine CT 07/01/19 01:02 IMPRESSION: 1. No acute findings of the cervical spine. Limitation. 2. Small patchy opacity-atelectasis partially imaged at the right lung apex. Similar pattern radiographs from April 2019. Recommend CR/CT surveillance including at 7-12 weeks following initiation of any clinically warranted therapy. Pelvis X-Ray 07/01/19 01:20 IMPRESSION: No acute displaced fracture is identified. Head CT 07/01/19 06:54 IMPRESSION: Findings consistent with sequela from the prior area of hemorrhage from March 2019 in the right temporal lobe with no evidence to suggest new hemorrhage. Abdomen/Pelvis CT 07/01/19 06:58 IMPRESSION: 1. Bilateral pleural effusions with anasarca consistent with some volume overload and/or third spacing. 2. Bilateral lower lung opacities consistent with atelectasis and/or pneumonia. 3. Cholelithiasis. 4. Diverticulosis. 5. Otherwise stable exam. Chest X-Ray 07/05/19 00:00 IMPRESSION: 1. Patchy airspace disease in the right perihilar region, right lower lobe and possibly left lower lobe. Findings may be due to edema, aspiration or pneumonia. 2. Stable prominence of the cardiac silhouette and remote postsurgical changes of the mediastinum. Head MRI 07/14/19 00:00 IMPRESSION: STUDY MARKEDLY LIMITED DUE TO MOTION ARTIFACT. ATROPHY AND CHRONIC MICRO-VASCULAR ISCHEMIC CHANGES. OLD INFARCT IN THE RIGHT TEMPORAL LOBE. NO APPARENT ACUTE FINDINGS. EVIDENCE OF ACUTE STROKE: NO. Assessment & Plan - Diagnosis (1) Acute kidney injury Is this a current diagnosis for this admission?: Yes (2) UTI (urinary tract infection) Qualifiers: Urinary tract infection type: acute cystitis Is this a current diagnosis for this admission?: Yes (3) Acute on chronic combined systolic and diastolic CHF, NYHA class 3 Is this a current diagnosis for this admission?: Yes (4) Diabetes mellitus type 2 in obese Is this a current diagnosis for this admission?: Yes (5) Decubitus ulcer of left heel, stage 4 Is this a current diagnosis for this admission?: Yes (6) Hypertension Qualifiers: Hypertension type: essential hypertension Qualified Code(s): I10 - Essential (primary) hypertension Is this a current diagnosis for this admission?: Yes (7) Hyperlipidemia Qualifiers: Hyperlipidemia type: unspecified Qualified Code(s): E78.5 - Hyperlipidemia, unspecified Is this a current diagnosis for this admission?: Yes (8) CAD (coronary artery disease) Qualifiers: Coronary Disease-Associated Artery/Lesion type: unspecified vessel or lesion type [place] vs. transplanted heart: [place] heart Associated angina: without angina Qualified Code(s): I25.10 - Atherosclerotic heart disease of [place] coronary artery without angina pectoris Is this a current diagnosis for this admission?: Yes (9) Chronic pain syndrome Is this a current diagnosis for this admission?: Yes (10) Chronic use of opiate for therapeutic purpose Is this a current diagnosis for this admission?: Yes (11) HLD (hyperlipidemia) Qualifiers: Hyperlipidemia type: pure hypercholesterolemia Qualified Code(s): E78.00 - Pure hypercholesterolemia, unspecified Is this a current diagnosis for this admission?: Yes (12) Vertigo as late effect of cerebrovascular accident (CVA) Is this a current diagnosis for this admission?: Yes - Time Time Spent with patient: 25-34 minutes Level of Care: IMCU Medications reviewed and adjusted accordingly: Yes Anticipated discharge: SNF Within: Other - Inpatient Certification Based on my medical assessment, after consideration of the patient's comorbidities, presenting symptoms, or acuity I expect that the services needed warrant INPATIENT care.: Yes I certify that my determination is in accordance with my understanding of Medicare's requirements for reasonable and necessary INPATIENT services [42 CFR 412.3e].: Yes Medical Necessity: Significant Comorbidiites Make Outpatient Treatment Too Risky, Need Close Monitoring Due to Risk of Patient Decompensation, Need For Continuous Telemetry Monitoring, Need for Pain Control, Risk of Complication if Not Cared For in Hospital, Risk of Diagnosis Which Will Require Inpatient Eval/Care/Monitoring Post Hospital Care: D/C or Transfer Summary - Plan Summary Plan Summary: Continue current medication management. Follow up on SNF placement for short term rehabilitation.
[2019-07-17] MEDS: ESCITALOPRAM OXALATE 10 MG TABLET PO SCH (21:17)
[2019-07-17] MEDS: INSULIN GLARGINE,HUM.REC.ANLOG 1,000 UNIT/10 ML VIAL SUBCUT SCH (21:32)
[2019-07-18] MEDS: HEPARIN SOD (PORCINE) 5,000 UNIT/ML 1 ML VIAL SUBCUT SCH ×3 (05:42→21:48)
[2019-07-18] MEDS: INSULIN REG, HUMAN 100 UNIT/ML 3 ML VIAL (PYX) SUBCUT SCH ×4 (08:11→21:49)
[2019-07-18] MEDS: CARVEDILOL 12.5 MG TABLET PO SCH ×2 (10:06→21:49)
[2019-07-18] MEDS: PREDNISONE 10 MG TABLET PO SCH (10:06)
[2019-07-18] MEDS: AMLODIPINE BESYLATE 10 MG TABLET PO SCH (10:06)
[2019-07-18] MEDS: LOSARTAN POTASSIUM 50 MG TABLET PO SCH (10:06)
[2019-07-18] MEDS: ASCORBIC ACID 500 MG TABLET PO SCH (10:06)
[2019-07-18] MEDS: MULTIVITAMINS W-IRON TABLET, CHEWABLE PO SCH (10:06)
[2019-07-18] MEDS: FAMOTIDINE 20 MG TABLET PO SCH (10:06)
[2019-07-18] MEDS: FUROSEMIDE 20 MG TABLET PO SCH (10:10)
[2019-07-18] MEDS: MECLIZINE HCL 12.5 MG TABLET PO SCH ×3 (10:10→18:02)
[2019-07-18] MEDS: CHOLECALCIFEROL (D3) 1,000 UNIT (25 MCG) TABLET PO SCH (10:10)
--- NOTE | 2019-07-18 12:24 | PDOC PROGRESS REPORT ---
Subjective Progress Note for:: 07/18/19 Subjective:: Patient chest pain or difficulty with breathing. No fever or chills. No abdominal pain, nausea or vomiting. No significant dizziness or headache. Reason For Visit: ACUTE RENAL FAILURE,DEHYDRATION Physical Exam Vital Signs: Temp Pulse Resp BP Pulse Ox 97.9 F 62 12 142/71 H 92 07/18/19 07:48 07/18/19 07:48 07/18/19 07:48 07/18/19 07:48 07/18/19 07:48 Intake & Output 07/17/19 07/18/19 07/19/19 06:59 06:59 06:59 Intake Total 1105 919 Output Total 200 200 Balance 905 719 Weight 102.7 kg 102 kg Physical Exam: General appearance: PRESENT: no acute distress, morbidly obese Head exam: PRESENT: atraumatic, normocephalic Eye exam: PRESENT: conjunctiva pink. ABSENT: pallor, scleral icterus Teeth exam: PRESENT: poor dentition Respiratory exam: PRESENT: clear to auscultation lele, decreased breath sounds - at lung bases Cardiovascular exam: PRESENT: RRR. ABSENT: diastolic murmur, rubs, systolic murmur GI/Abdominal exam: PRESENT: normal bowel sounds, soft. ABSENT: distended, guarding, mass, organomegaly, rebound, tenderness Extremities exam: ABSENT: pedal edema Neurological exam: PRESENT: alert, awake, oriented to person, oriented to place, oriented to time, oriented to situation, CN II-XII grossly intact. ABSENT: motor sensory deficit Psychiatric exam: PRESENT: appropriate affect, normal mood. 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 No acute findings of the cervical spine. Limitation. 2. Small patchy opacity-atelectasis partially imaged at the right lung apex. Similar pattern radiographs from April 2019. Recommend CR/CT surveillance including at 7-12 weeks following initiation of any clinically warranted therapy. Pelvis X-Ray 07/01/19 01:20 IMPRESSION: No acute displaced fracture is identified. Head CT 07/01/19 06:54 IMPRESSION: Findings consistent with sequela from the prior area of hemorrhage from March 2019 in the right temporal lobe with no evidence to suggest new hemorrhage. Abdomen/Pelvis CT 07/01/19 06:58 IMPRESSION: 1. Bilateral pleural effusions with anasarca consistent with some volume overload and/or third spacing. 2. Bilateral lower lung opacities consistent with atelectasis and/or pneumonia. 3. Cholelithiasis. 4. Diverticulosis. 5. Otherwise stable exam. Chest X-Ray 07/05/19 00:00 IMPRESSION: 1. Patchy airspace disease in the right perihilar region, right lower lobe and possibly left lower lobe. Findings may be due to edema, aspiration or pneumonia. 2. Stable prominence of the cardiac silhouette and remote postsurgical changes of the mediastinum. Head MRI 07/14/19 00:00 IMPRESSION: STUDY MARKEDLY LIMITED DUE TO MOTION ARTIFACT. ATROPHY AND CHRONIC MICRO-VASCULAR ISCHEMIC CHANGES. OLD INFARCT IN THE RIGHT TEMPORAL LOBE. NO APPARENT ACUTE FINDINGS. EVIDENCE OF ACUTE STROKE: NO. Assessment & Plan - Diagnosis (1) Acute kidney injury Is this a current diagnosis for this admission?: Yes (2) UTI (urinary tract infection) Qualifiers: Urinary tract infection type: acute cystitis Is this a current diagnosis for this admission?: Yes (3) Acute on chronic combined systolic and diastolic CHF, NYHA class 3 Is this a current diagnosis for this admission?: Yes (4) Diabetes mellitus type 2 in obese Is this a current diagnosis for this admission?: Yes (5) Decubitus ulcer of left heel, stage 4 Is this a current diagnosis for this admission?: Yes (6) Hypertension Qualifiers: Hypertension type: essential hypertension Qualified Code(s): I10 - Essential (primary) hypertension Is this a current diagnosis for this admission?: Yes (7) Hyperlipidemia Qualifiers: Hyperlipidemia type: unspecified Qualified Code(s): E78.5 - Hyperlipidemia, unspecified Is this a current diagnosis for this admission?: Yes (8) CAD (coronary artery disease) Qualifiers: Coronary Disease-Associated Artery/Lesion type: unspecified vessel or lesion type [place] vs. transplanted heart: [place] heart Associated angina: without angina Qualified Code(s): I25.10 - Atherosclerotic heart disease of [place] coronary artery without angina pectoris Is this a current diagnosis for this admission?: Yes (9) Chronic pain syndrome Is this a current diagnosis for this admission?: Yes (10) Chronic use of opiate for therapeutic purpose Is this a current diagnosis for this admission?: Yes (11) HLD (hyperlipidemia) Qualifiers: Hyperlipidemia type: pure hypercholesterolemia Qualified Code(s): E78.00 - Pure hypercholesterolemia, unspecified Is this a current diagnosis for this admission?: Yes (12) Vertigo as late effect of cerebrovascular accident (CVA) Is this a current diagnosis for this admission?: Yes - Time Time Spent with patient: 25-34 minutes Level of Care: IMCU Medications reviewed and adjusted accordingly: Yes Anticipated discharge: SNF Within: Other - Inpatient Certification Based on my medical assessment, after consideration of the patient's comorbidities, presenting symptoms, or acuity I expect that the services needed warrant INPATIENT care.: Yes I certify that my determination is in accordance with my understanding of Medicare's requirements for reasonable and necessary INPATIENT services [42 CFR 412.3e].: Yes Medical Necessity: Significant Comorbidiites Make Outpatient Treatment Too Risky, Need Close Monitoring Due to Risk of Patient Decompensation, Need For Continuous Telemetry Monitoring, Risk of Complication if Not Cared For in Hospital, Risk of Diagnosis Which Will Require Inpatient Eval/Care/Monitoring Post Hospital Care: D/C or Transfer Summary - Plan Summary Plan Summary: Continue on medication management. Follow up on disposition plan.
[2019-07-18] MEDS: ESCITALOPRAM OXALATE 10 MG TABLET PO SCH (21:49)
[2019-07-18] MEDS: INSULIN GLARGINE,HUM.REC.ANLOG 1,000 UNIT/10 ML VIAL SUBCUT SCH (21:49)
[2019-07-19] MEDS: HEPARIN SOD (PORCINE) 5,000 UNIT/ML 1 ML VIAL SUBCUT SCH ×2 (05:31→13:50)
[2019-07-19] MEDS: INSULIN REG, HUMAN 100 UNIT/ML 3 ML VIAL (PYX) SUBCUT SCH ×2 (08:25→13:50)
[2019-07-19] MEDS: LOSARTAN POTASSIUM 50 MG TABLET PO SCH (10:02)
[2019-07-19] MEDS: CARVEDILOL 12.5 MG TABLET PO SCH (10:02)
[2019-07-19] MEDS: ASCORBIC ACID 500 MG TABLET PO SCH (10:02)
[2019-07-19] MEDS: FAMOTIDINE 20 MG TABLET PO SCH (10:02)
[2019-07-19] MEDS: AMLODIPINE BESYLATE 10 MG TABLET PO SCH (10:02)
[2019-07-19] MEDS: MULTIVITAMINS W-IRON TABLET, CHEWABLE PO SCH (10:02)
[2019-07-19] MEDS: PREDNISONE 10 MG TABLET PO SCH (10:02)
[2019-07-19] MEDS: FUROSEMIDE 20 MG TABLET PO SCH (10:02)
[2019-07-19] MEDS: MECLIZINE HCL 12.5 MG TABLET PO SCH ×2 (10:02→13:54)
[2019-07-19] MEDS: CHOLECALCIFEROL (D3) 1,000 UNIT (25 MCG) TABLET PO SCH (10:04)
[2019-07-19 13:02] VITALS: BP 155/63
--- NOTE | 2019-07-19 15:24 | PDOC TRANSFER SUMMARY ---
Impression - Admit/DC Date/PCP Admission Date/Primary Care Provider: 07/01/19 03:33 RENAN LAZAR Discharge Date: 07/19/19 - Discharge Diagnosis (1) Acute kidney injury Is this a current diagnosis for this admission?: Yes (2) UTI (urinary tract infection) Is this a current diagnosis for this admission?: Yes (3) Acute on chronic combined systolic and diastolic CHF, NYHA class 3 Is this a current diagnosis for this admission?: Yes (4) Diabetes mellitus type 2 in obese Is this a current diagnosis for this admission?: Yes (5) Decubitus ulcer of left heel, stage 4 Is this a current diagnosis for this admission?: Yes (6) Hypertension Is this a current diagnosis for this admission?: Yes (7) Hyperlipidemia Is this a current diagnosis for this admission?: Yes (8) CAD (coronary artery disease) Is this a current diagnosis for this admission?: Yes (9) Chronic pain syndrome Is this a current diagnosis for this admission?: Yes (10) Chronic use of opiate for therapeutic purpose Is this a current diagnosis for this admission?: Yes (11) HLD (hyperlipidemia) Is this a current diagnosis for this admission?: Yes (12) Vertigo as late effect of cerebrovascular accident (CVA) Is this a current diagnosis for this admission?: Yes - Assessment Summary: She was admitted to ICU for acute renal failure, Hyperkalemia, Urinary tract infection with hypotension, and delirium following episode of fall at home. She was treated adequately and subsequently [facility] but returned to the ICU due to worsening altered mental status. Her ABG did demonstrate respiratory acidosis that responded to non-invasive ventilatory support with BiPAP therapy. She did improved and eventually downgraded to [facility] floor. She reported episode of dizziness that she described as spinning room and headache that are related to her previous hemorrhagic stroke. she has been on scheduled dosing with Meclizine ands Scopolamine therapy. I will recommend discontinuation of the scopolamine therapy due to drug-drug interaction with increase risk of [employer] depression, psychomotor impairment, and increase anticholinergic adverse side effects. She will be transferred to [facility] for short term rehabilitation. She will follow up in the office upon discharge from the [facility]. - Additional Information Resuscitation Status: Full Code Discharge Diet: Cardiac, Diabetic, Other (Comments) Discharge Activity: Activity As Tolerated, Balance Activity w/Rest, Slowly Increase Activity, Weigh Daily, Other Referrals: RENAN LAZAR MD [Primary Care Provider] - Follow up as needed ([facility] staff should call office before discharge from the facility for follow up appointment.) Prescriptions: Meclizine HCl [Verticalm] 12.5 mg PO TID #45 tablet Home Medications: Amlodipine Besylate [Norvasc 10 mg Tablet] 10 mg PO DAILY 11/30/18 Ascorbic Acid [Vitamin C 500 mg Tablet] 500 mg PO DAILY 11/30/18 Atorvastatin Calcium [Lipitor 20 mg Tablet] 20 mg PO QHS 11/30/18 Docusate Sodium [Colace 100 mg Capsule] 100 mg PO BIDP PRN 11/30/18 Ferrous Sulfate [Feosol 325 mg Tablet] 325 mg PO DAILY 11/30/18 Furosemide [Lasix 20 mg Tablet] 20 mg PO BID 11/30/18 Gabapentin [Neurontin 300 mg Capsule] 300 mg PO Q8 01/06/19 Insulin Degludec [Tresiba Flextouch U-100] 40 unit SQ DAILY 01/06/19 Escitalopram Oxalate [Lexapro 10 mg Tablet] 10 mg PO QHS #30 tablet 03/01/19 Carvedilol [Coreg 12.5 mg Tablet] 12.5 mg PO Q12 04/13/19 Cholecalciferol (Vitamin D3) [Vitamin D3 1000 Unit Tablet] 2,000 unit PO DAILY 04/13/19 Dicyclomine HCl [Bentyl 10 mg Capsule] 10 mg PO DAILY PRN 04/13/19 Famotidine [Pepcid] 20 mg PO BID 04/13/19 Hydralazine HCl 100 mg PO Q8 04/13/19 Ipratropium/Albuterol Sulfate [Duoneb 3 ml Ampul] 3 ml NEB RTQ6HP PRN 30 Days #60 vial.neb 04/20/19 Multivit,Tx with Iron,Minerals [Thera-M] 1 each PO DAILY 05/08/19 Olmesartan Medoxomil [Benicar] 20 mg PO DAILY 05/08/19 Sucralfate [Carafate 1 gm Tablet] 1 gm PO ACHS 05/08/19 Acetaminophen [Acetaminophen Extra Strength] 500 mg PO DAILYP PRN 07/01/19 Meclizine HCl [Verticalm] 12.5 mg PO TID #45 tablet 07/19/19 Prednisone [Deltasone 10 mg Tablet] 5 mg PO ASDIR PRN #10 tablet 07/19/19 History of Present Illiness History of Present Illness: LEEANN FUNEZ is a 64 year old female with a PMH of HFpEF, hypertension, hyperlipidemia, diabetes, COPD, CAD, pulmonary hypertension. Presented to the ED after a fall, she states her walker got stuck and she lost her balance. She denies any pain or trauma associated with fall. In the ED a head CT was obtained which showed old lacunar infarct and a possible small SAH in the right frontal lobe. Palacio was placed and returned 10 cc of dark cloudy foul-smelling urine, this was sent for a UA which revealed moderate blood moderate leukocyte esterase 3+ bacteria. Patient was found to be hypothermic with a rectal temp of 95.5 she is also hypotensive most recent blood pressure 78/36 with a mean of 50. She was given a dozen cc bolus in the ER. She is admitted to the ICU for further management. Hospital Course Hospital Course: She was admitted to ICU for acute renal failure, Hyperkalemia, Urinary tract infection with hypotension, and delirium following episode of fall at home. She was treated adequately and subsequently transferred to [facility] floor for further management but returned to the ICU due to worsening altered mental status. Her ABG did demonstrate respiratory acidosis that responded to non-invasive ventilatory support with BiPAP therapy. She did improved and eventually downgraded to [facility] floor. She reported episode of dizziness that she described as spinning room and headache that are related to her previous hemorrhagic stroke. she has been on scheduled dosing with Meclizine ands Scopolamine therapy. I will recommend discontinuation of the scopolamine therapy due to drug-drug interaction with increase risk of [employer] depression, psychomotor impairment, and increase anticholinergic adverse side effects. She will be transferred to [facility] for short term rehabilitation. She will follow up in the office upon discharge from the [facility]. Physical Exam Vital Signs: Temp Pulse Resp BP Pulse Ox 97.6 F 64 16 155/63 H 92 07/19/19 11:57 07/19/19 14:00 07/19/19 11:57 07/19/19 11:57 07/19/19 11:57 Intake & Output 07/18/19 07/19/19 07/20/19 06:59 06:59 06:59 Intake Total 919 522 340 Output Total 200 Balance 719 522 340 Weight 102 kg 101.3 kg 101.3 kg General appearance: PRESENT: no acute distress, morbidly obese Head exam: PRESENT: atraumatic, normocephalic Eye exam: PRESENT: conjunctiva pink. ABSENT: pallor, scleral icterus Teeth exam: PRESENT: poor dentition Respiratory exam: PRESENT: clear to auscultation lele, decreased breath sounds - at lung bases Cardiovascular exam: PRESENT: RRR. ABSENT: diastolic murmur, rubs, systolic murmur GI/Abdominal exam: PRESENT: normal bowel sounds, soft. ABSENT: distended, guarding, mass, organomegaly, rebound, tenderness Extremities exam: ABSENT: pedal edema Neurological exam: PRESENT: alert, awake, oriented to person, oriented to place, oriented to time, oriented to situation, CN II-XII grossly intact. ABSENT: motor sensory deficit Psychiatric exam: PRESENT: appropriate affect, normal mood. ABSENT: homicidal ideation, suicidal ideation Skin exam: PRESENT: dry, warm, other - chronic left foot heel region stage 3 diabetic ulcer Results Laboratory Results: WBC 4.4 10^3/uL (4.0-10.5) 07/17/19 04:48 RBC 2.74 10^6/uL (3.72-5.28) L 07/17/19 04:48 Hgb 8.5 g/dL (12.0-15.5) L 07/17/19 04:48 Hct 25.8 % (36.0-47.0) L 07/17/19 04:48 MCV 94 fl (80-97) 07/17/19 04:48 MCH 30.9 pg (27.0-33.4) 07/17/19 04:48 MCHC 32.9 g/dL (32.0-36.0) 07/17/19 04:48 RDW 19.0 % (11.5-14.0) H 07/17/19 04:48 Plt Count 131 10^3/uL (150-450) L 07/17/19 04:48 Lymph % (Auto) 26.9 % (13-45) 07/17/19 04:48 [place] % (Auto) 13.3 % (3-13) H 07/17/19 04:48 Eos % (Auto) 1.5 % (0-6) 07/17/19 04:48 Baso % (Auto) 0.8 % (0-2) 07/17/19 04:48 Absolute Neuts (auto) 2.5 10^3/uL (1.7-8.2) 07/17/19 04:48 Absolute Lymphs (auto) 1.2 10^3/uL (0.5-4.7) 07/17/19 04:48 Absolute Monos (auto) 0.6 10^3/uL (0.1-1.4) 07/17/19 04:48 Absolute Eos (auto) 0.1 10^3/uL (0.0-0.6) 07/17/19 04:48 Absolute Basos (auto) 0.0 10^3/uL (0.0-0.2) 07/17/19 04:48 Seg Neutrophils % 57.5 % (42-78) 07/17/19 04:48 PT 17.5 SEC (11.4-15.4) H 07/02/19 05:32 INR 1.42 07/02/19 05:32 APTT 33.7 SEC (23.5-35.8) 07/02/19 05:32 Carbonic Acid 1.69 mmol/L (1.05-1.35) H 07/09/19 05:21 HCO3/H2CO3 Ratio 17:1 07/09/19 05:21 ABG pH 7.34 (7.35-7.45) L 07/09/19 05:21 ABG pCO2 56.1 mmHg (35-45) H 07/09/19 05:21 ABG pO2 98.0 mmHg (80-100) 07/09/19 05:21 ABG HCO3 29.7 mmol/L (20-24) H 07/09/19 05:21 ABG Total CO2 31.4 mmol/L (21-25) H 07/09/19 05:21 ABG O2 Saturation 97.0 % (94-98) 07/09/19 05:21 ABG Base Excess 3.0 mmol/L 07/09/19 05:21 FiO2 3L 07/09/19 05:21 Sodium 142.4 mmol/L (137-145) 07/17/19 04:48 Potassium 4.7 mmol/L (3.6-5.0) 07/17/19 04:48 Chloride 106 mmol/L (98-107) 07/17/19 04:48 Carbon Dioxide 29 mmol/L (22-30) 07/17/19 04:48 Anion Gap 7 (5-19) 07/17/19 04:48 BUN 41 mg/dL (7-20) H 07/17/19 04:48 Creatinine 0.93 mg/dL (0.52-1.25) 07/17/19 04:48 Est GFR ( Amer) > 60 (>60) 07/17/19 04:48 Est GFR (MDRD) Non-Af > 60 (>60) 07/17/19 04:48 Glucose 100 mg/dL (75-110) 07/17/19 04:48 POC Glucose 121 mg/dL (70-110) H 07/19/19 11:55 Lactic Acid 0.6 mmol/L (0.7-2.1) L 07/01/19 23:42 Calcium 9.1 mg/dL (8.4-10.2) 07/17/19 04:48 Phosphorus 3.6 mg/dL (2.5-4.5) 07/10/19 04:26 Magnesium 2.0 mg/dL (1.6-2.3) 07/10/19 04:26 Total Bilirubin 0.8 mg/dL (0.2-1.3) 07/17/19 04:48 Direct Bilirubin 0.1 mg/dL (0.0-0.4) 07/17/19 04:48 Neonat Total Bilirubin Not Reportable 07/17/19 04:48 Neonat Direct Bilirubin Not Reportable 07/17/19 04:48 Neonat Indirect Bili Not Reportable 07/17/19 04:48 AST 19 U/L (14-36) 07/17/19 04:48 ALT 9 U/L (<35) 07/17/19 04:48 Alkaline Phosphatase 203 U/L (38-126) H 07/17/19 04:48 Creatine Kinase 33 U/L (30-135) 07/01/19 00:14 Troponin I < 0.012 ng/mL 07/01/19 07:07 NT-Pro-B Natriuret Pep 9700 pg/mL (<125) H 07/02/19 05:32 Total Protein 7.3 g/dL (6.3-8.2) 07/17/19 04:48 Albumin 3.2 g/dL (3.5-5.0) L 07/17/19 04:48 TSH 1.73 uIU/mL (0.47-4.68) 07/02/19 05:32 Free T4 1.22 ng/dL (0.78-2.19) 07/02/19 05:32 Random Cortisol 50.20 ug/dL (None Established) 07/01/19 00:14 Urine Color YELLOW 07/01/19 06:39 Urine Appearance TURBID 07/01/19 06:39 Urine pH 5.0 (5.0-9.0) 07/01/19 06:39 Ur Specific [place] 1.024 07/01/19 06:39 Urine Protein 100 mg/dL (NEGATIVE) H 07/01/19 06:39 Urine Glucose (UA) NEGATIVE mg/dL (NEGATIVE) 07/01/19 06:39 Urine Ketones NEGATIVE mg/dL (NEGATIVE) 07/01/19 06:39 Urine Blood MODERATE (NEGATIVE) H 07/01/19 06:39 Urine Nitrite NEGATIVE (NEGATIVE) 07/01/19 06:39 Urine Bilirubin NEGATIVE (NEGATIVE) 07/01/19 06:39 Urine Urobilinogen NEGATIVE mg/dL (<2.0) 07/01/19 06:39 Ur Leukocyte Esterase MODERATE (NEGATIVE) H 07/01/19 06:39 Urine WBC (Auto) 170 /HPF 07/01/19 06:39 Urine RBC (Auto) >182 /HPF 07/01/19 06:39 Urine Bacteria (Auto) 3+ /HPF 07/01/19 06:39 Urine WBC Clumps MANY /HPF 07/01/19 06:39 Squamous Epi Cells Auto 53 /HPF 07/01/19 06:39 Urine Mucus (Auto) MANY /LPF 07/01/19 06:39 Urine Yeast (Budding) PRESENT /HPF 07/01/19 06:39 Urine Osmolality 342 mOsm/kg (300-900) 07/01/19 06:39 Urine Creatinine 204.4 mg/dL (15-278) 07/01/19 06:39 Urine Sodium 37 mmol/L (30-90) 07/01/19 06:39 Urine Potassium 69.6 mmol/L (22-164) 07/01/19 06:39 Urine Ascorbic Acid 40 (NEGATIVE) H 07/01/19 06:39 Urine Opiates Screen NEGATIVE 07/01/19 06:39 Urine Methadone Screen NEGATIVE 07/01/19 06:39 Ur Barbiturates Screen NEGATIVE 07/01/19 06:39 Ur Phencyclidine Scrn NEGATIVE 07/01/19 06:39 Ur Amphetamines Screen NEGATIVE 07/01/19 06:39 U Benzodiazepines Scrn NEGATIVE 07/01/19 06:39 Urine Cocaine Screen NEGATIVE 07/01/19 06:39 U Marijuana (THC) Screen NEGATIVE 07/01/19 06:39 Serum Alcohol < 10 mg/dL (NONE DETECTED) 07/01/19 00:14 COVID-19 Source Cancelled 07/01/19 03:31 COVID-19 (CHIQUI) Cancelled 07/01/19 03:31 Influenza A (Rapid) NEGATIVE (NEGATIVE) 07/01/19 03:31 Influenza B (Rapid) NEGATIVE (NEGATIVE) 07/01/19 03:31 SARS-CoV-2 (PCR) NEGATIVE (NEGATIVE) 07/01/19 04:20 Blood Type A2subB POSITIVE 07/01/19 01:42 Antibody Screen NEGATIVE 07/01/19 01:42 07/01/19 07/01/19 07/01/19 00:14 07:07 23:42 Troponin I 0.014 < 0.012 NT-Pro-B Natriuret Pep 76323 H 9620 H 07/02/19 05:32 Troponin I NT-Pro-B Natriuret Pep 9700 H Impressions: Cervical Spine CT 07/01/19 01:02 IMPRESSION: 1. No acute findings of the cervical spine. Limitation. 2. Small patchy opacity-atelectasis partially imaged at the right lung apex. Similar pattern radiographs from April 2019. Recommend CR/CT surveillance including at 7-12 weeks following initiation of any clinically warranted therapy. Head CT 07/01/19 01:02 IMPRESSION: Small high attenuation at the right temporal cortex may indicate small hemorrhagic contusion/ischemia, small subarachnoid hemorrhage, or small calcified sequela in an area of prior insult shown on exam dated March 30, 2019. Moderate encephalomalacia-infarct of the right temporal lobe. Lacunar infarcts of the right basal ganglia. Recommend CT/MR surveillance. Chest X-Ray 07/01/19 01:20 IMPRESSION: No evidence of active intrathoracic disease. If there is suspicion for focal bony injury, dedicated bone radiography of the area in question is advised. Pelvis X-Ray 07/01/19 01:20 IMPRESSION: No acute displaced fracture is identified. Head CT 07/01/19 06:54 IMPRESSION: Findings consistent with sequela from the prior area of hemorrhage from March 2019 in the right temporal lobe with no evidence to suggest new hemorrhage. Abdomen/Pelvis CT 07/01/19 06:58 IMPRESSION: 1. Bilateral pleural effusions with anasarca consistent with some volume overload and/or third spacing. 2. Bilateral lower lung opacities consistent with atelectasis and/or pneumonia. 3. Cholelithiasis. 4. Diverticulosis. 5. Otherwise stable exam. Chest X-Ray 07/05/19 00:00 IMPRESSION: 1. Patchy airspace disease in the right perihilar region, right lower lobe and possibly left lower lobe. Findings may be due to edema, aspiration or pneumonia. 2. Stable prominence of the cardiac silhouette and remote postsurgical changes of the mediastinum. Head MRI 07/14/19 00:00 IMPRESSION: STUDY MARKEDLY LIMITED DUE TO MOTION ARTIFACT. ATROPHY AND CHRONIC MICRO-VASCULAR ISCHEMIC CHANGES. OLD INFARCT IN THE RIGHT TEMPORAL LOBE. NO APPARENT ACUTE FINDINGS. EVIDENCE OF ACUTE STROKE: NO. Plan Health Concerns: Medication and dietary compliance for her morbidities. Plan of Treatment: Short term rehabilitation at SNF and possible [facility] [facility] services upon discharge with home safety check and eventual transition to outpatient rehabilitation. She will need follow up at the wound care enter for her chronic right heel diabetic ulcer management. Goals: Reduce hospital readmission risk due to her morbidities. Time Spent: Greater than 30 Minutes - post discharge care planning Stroke Is this a Stroke Patient?: No Acute Heart Failure - Is this a Heart Failure Patient?: No
--- NOTE | 2019-07-24 12:37 | Progress Note ---
Provider Note Provider Note: Please bill at the current wound stage level stage 3 chronic left heel diabetic ulcer. She had extensive sharp debridement in the past with subsequent improvement in the wound status.
== END 2019-07-19 17:21 | DRG 682 ==
LOC: ER 00:06 → EH 03:33 → ICU 08:30 → 4N 07-04 17:35 → ICU 07-05 07:00 → 3W 07-10 16:17
PROVIDERS: ADMIT Internal Medicine Geriatric Medicine; ATTEND Internal Medicine Geriatric Medicine
PROC: 5A09557 Assistance with Respiratory Ventilation, Greater than 96 Consecutive Hours, Continuous Positive Airway Pressure (ICD-10-PCS; principal; 2019-07-05)
DX: N17.0 Acute kidney failure with tubular necrosis (principal); J96.02 Acute respiratory failure with hypercapnia; I50.43 Acute on chronic combined systolic (congestive) and diastolic (congestive) heart failure; N39.0 Urinary tract infection, site not specified; E87.2 Acidosis; L97.425 Non-pressure chronic ulcer of left heel and midfoot with muscle involvement without evidence of necrosis; E86.0 Dehydration; I11.0 Hypertensive heart disease with heart failure; E78.5 Hyperlipidemia, unspecified; E11.9 Type 2 diabetes mellitus without complications; J44.9 Chronic obstructive pulmonary disease, unspecified; I25.10 Atherosclerotic heart disease of native coronary artery without angina pectoris; I27.20 Pulmonary hypertension, unspecified; E66.9 Obesity, unspecified; E87.5 Hyperkalemia; L89.152 Pressure ulcer of sacral region, stage 2; I95.9 Hypotension, unspecified; D64.9 Anemia, unspecified; R42 Dizziness and giddiness; E11.621 Type 2 diabetes mellitus with foot ulcer; G89.4 Chronic pain syndrome; Z79.891 Long term (current) use of opiate analgesic; E78.00 Pure hypercholesterolemia, unspecified; I69.398 Other sequelae of cerebral infarction; Z20.828 Contact with and (suspected) exposure to other viral communicable diseases; R41.0 Disorientation, unspecified; Z79.4 Long term (current) use of insulin; Z79.899 Other long term (current) drug therapy; R68.0 Hypothermia, not associated with low environmental temperature; Z91.81 History of falling; Z95.1 Presence of aortocoronary bypass graft
CPT/HCPCS: 36415; 70450; 70551; 71045; 72125; 72170; 74176; 80048; 80053; 80307; 81001; 82040; 82533; 82550; 82570; 82803; 82962; 83605; 83735; 83880; 83935; 84100; 84133; 84300; 84439; 84443; 84484; 85025; 85610; 85730; 86850; 86900; 86901; 87040; 87070; 87077; 87086; 87186; 87205; 87635; 87804; 92950; 93005; 93010; 94660; 99221; 99222; 99291; J0610; J0690; J0696; J1644; J1815; J1940; J2250; J2405; J3370; J3490; J7030; J7040; J7060; J7512

== ENCOUNTER 2019-07-25 12:13 | Inpatient (IN) | payer MEDICARE, MEDICAID ==
[2019-07-25 13:34] LABS: APPEARANCE,URINE CLOUDY; BILIRUBIN,URINE NEGATIVE (NEGATIVE); GLUCOSE, URINE NEGATIVE (NEGATIVE); KETONES,URINE NEGATIVE (NEGATIVE); LEUKOCYTE ESTERASE,URINE MODERATE (NEGATIVE); NITRITE,URINE NEGATIVE (NEGATIVE); PROTEIN,URINE 100 mg/dL (NEGATIVE); URINE SPECIFIC GRAVITY 1.016
[2019-07-25 13:35] LABS: COLOR,URINE YELLOW
[2019-07-25 13:47] LABS: URINE AMPHETAMINES SCREEN NEGATIVE; URINE BARBITURATES SCREEN NEGATIVE; URINE BENZODIAZEPINES SCREEN NEGATIVE; URINE COCAINE SCREEN NEGATIVE; URINE MARIJUANA (THC) SCREEN NEGATIVE; URINE METHADONE SCREEN NEGATIVE; URINE PHENCYCLIDINE SCREEN NEGATIVE
--- NOTE | 2019-07-25 14:13 | RADIOLOGY REPORT (SQ) ---
EXAM DESCRIPTION: CHEST SINGLE VIEW IMAGES COMPLETED DATE/TIME: 07/25/2019 1:51 pm REASON FOR STUDY: swelling COMPARISON: 07/05/2019 NUMBER OF VIEWS: One view. TECHNIQUE: Single frontal radiographic image of the chest acquired. LIMITATIONS: None. FINDINGS: LUNGS AND PLEURA: Improved aeration in the right lung. Residual small left effusion. MEDIASTINUM AND HEART: Stable heart size and mediastinal structures. BONY STRUCTURES: No acute findings. HARDWARE: CABG. OTHER: No other significant finding. IMPRESSION: Small left pleural effusion. TECHNICAL DOCUMENTATION: JOB ID: [id number] Reading location - IP/workstation name: [email or web address]
[2019-07-25 15:12] LABS: ABSOLUTE EOSINOPHILS # (AUTO) 0.1 10^3/uL (0.0-0.6); ABSOLUTE LYMPHOCYTES (AUTO) 0.9 10^3/uL (0.5-4.7); ABSOLUTE MONOCYTES (AUTO) 0.7 10^3/uL (0.1-1.4); BASOPHILS % (AUTO) 0.5 % (0-2); EOSINOPHILS % (AUTO) 2.3 % (0-6); HEMATOCRIT 27.3 % (36.0-47.0); HEMOGLOBIN 8.7 g/dL (12.0-15.5); LYMPHOCYTES % (AUTO) 18.7 % (13-45); MEAN CORPUSCULAR HEMOGLOBIN 31.2 pg (27.0-33.4); MONOCYTES % (AUTO) 15.3 % (3-13); RED BLOOD COUNT 2.79 10^6/uL (3.72-5.28); RED CELL DISTRIBUTION WIDTH 19.4 % (11.5-14.0); SEGMENTED NEUTROPHILS % (AUTO) 63.2 % (42-78); TOTAL CELLS COUNTED % (AUTO) 100 %; WHITE BLOOD COUNT 4.8 10^3/uL (4.0-10.5)
[2019-07-25 15:31] LABS: MEAN CORPUSCULAR VOLUME 98 fl (80-97)
[2019-07-25 15:33] LABS: ALBUMIN 3.3 g/dL (3.5-5.0); ALKALINE PHOSPHATASE 228 U/L (38-126); ASPARTATE AMINO TRANSFERASE 29 U/L (14-36); BILIRUBIN,DIRECT 0.2 mg/dL (0.0-0.4); BLOOD UREA NITROGEN 52 mg/dL (7-20); CALCIUM 8.7 mg/dL (8.4-10.2); CARBON DIOXIDE 29 mmol/L (22-30); GLUCOSE 70 mg/dL (75-110); POTASSIUM 5.4 mmol/L (3.6-5.0); TOTAL PROTEIN 7.5 g/dL (6.3-8.2)
[2019-07-25 15:35] LABS: PLATELET COUNT 94 10^3/uL (150-450)
[2019-07-25 15:37] LABS: ALCOHOL < 10 mg/dL (NONE DETECTED)
[2019-07-25 15:38] LABS: CHLORIDE 106 mmol/L (98-107)
[2019-07-25 15:42] LABS: ANION GAP 5 (5-19)
[2019-07-25] MEDS ORDERED: DEXTROSE 5%-1/2 NORMAL SALINE 1,000 ML IV ONE (17:30)
--- NOTE | 2019-07-25 17:39 | ER Document Report ---
Entered by LATHA MEDRANO SCRIBE 07/25/19 1974 Acting as scribe for:FRANCISCA AMADO DO ED General - General Chief Complaint: Swelling Stated Complaint: SWELLING Time Seen by Provider: 07/25/19 14:35 Mode of Arrival: Ambulatory Information source: Patient Notes: Patient is a 64 year old female that presents to the emergency department today from her [facility] complaining of leg swelling according to nursing notes. Patient states that she is here for left arm pain and left leg pain but adds that neither of these are new. Patient is drowsy so history is limited. TRAVEL OUTSIDE OF THE [place] IN LAST 30 DAYS: No - Related Data Allergies/Adverse Reactions: pregabalin [From Lyrica] Allergy (Intermediate, Verified 07/03/19 07:18) RASH duloxetine Allergy (Verified 07/03/19 07:18) Past Medical History - General Information source: Patient - Social History Smoking Status: Unknown if Ever Smoked Cigarette use (# per day): No Frequency of alcohol use: None Drug Abuse: None Lives with: [facility]-Way Family History: CAD, Hyperlipidemia, Hypertension, Reviewed & Not Pertinent Patient has homicidal ideation: No - Past Medical History Cardiac Medical History: Reports: Hx Congestive Heart Failure, Hx Coronary Artery Disease, Hx Heart Attack, Hx Hypercholesterolemia, Hx Hypertension, Hx P eripheral Vascular Disease Pulmonary Medical History: Reports: Hx Bronchitis Neurological Medical History: Reports: Hx Cerebrovascular Accident - 2007 Endocrine Medical History: Reports: Hx Diabetes Mellitus Type 1, Hx Diabetes Mellitus Type 2 Renal/ Medical History: Malignancy Medical History: GI Medical History: Reports: Hx Diverticulitis - diverticulosis Musculoskeletal Medical History: Psychiatric Medical History: Traumatic Medical History: Infectious Medical History: Past Surgical History: Reports: Hx Cardiac Surgery - quad bypass, Hx Coronary Artery Bypass Graft - May 16 2011, Hx Tonsillectomy, Hx Vascular Surgery - Immunizations Immunizations up to date: No Hx Diphtheria, Pertussis, Tetanus Vaccination: Yes Hx Pneumococcal Vaccination: 11/20/10 Review of Systems - Review of Systems -: Yes ROS unobtainable due to patient's medical condition Physical Exam - Vital signs Vitals: Resp Pulse Ox 16 93 07/25/19 12:20 07/25/19 12:20 Interpretation: Bradycardic - General General appearance: Lethargic - HEENT Head: Normocephalic, Atraumatic Eyes: Normal Pupils: PERRL Mucous membranes: Dry - Respiratory Respiratory status: No respiratory distress Chest status: Nontender Breath sounds: Normal Chest palpation: Normal - Cardiovascular Rhythm: Regular Heart sounds: Normal auscultation Murmur: No - Abdominal Inspection: Normal Distension: No distension Bowel sounds: Normal Tenderness: Nontender Organomegaly: No organomegaly - Back Back: Normal, Nontender - Extremities General upper extremity: Nontender, Edema, Normal color, Normal ROM, Normal temperature General lower extremity: Nontender, Edema, Normal color, Normal ROM, Normal temperature, Normal weight bearing. No: Rogelio's sign - Neurological Neuro grossly intact: Yes Cognition: Confused [place] Coma Scale Eye Opening: Spontaneous [place] Coma Scale Verbal: Confused [place] Coma Scale Motor: Obeys Commands [place] Coma Scale Total: 14 Speech: Normal Motor strength normal: LUE, RUE, LLE, RLE Sensory: Normal - Psychological Associated symptoms: Normal affect, Normal mood - Skin Skin Temperature: Warm Skin Moisture: Dry Skin Color: Normal Course - Re-evaluation Re-evalutation: 07/25/19 17:25 Patient is a 64-year-old female who comes in with lethargy. Patient also with acute renal insufficiency and creatinine of 2.89. She is drowsy. Blood sugar 70 on lab work and 60. Patient with decreased p.o. intake today apparently. D50 given with good response. Patient with no infectious source. She is bradycardic likely from taking medications especially with decrease creatinine c learance. Discussed with Dr. Sarah Arrington will admit the patient to his service. Stable at the time of admission. I have attempted to contact family but they have not been answering the phone. - Vital Signs Vital signs: Temp Pulse Resp BP Pulse Ox 98 F 46 L 10 L 120/75 97 07/25/19 12:41 07/25/19 12:41 07/25/19 18:01 07/25/19 18:01 07/25/19 18:01 - Laboratory Result Diagrams: 07/25/19 14:51 07/25/19 14:51 Laboratory results interpreted by me: 07/25/19 07/25/19 07/25/19 12:38 13:15 14:51 RBC 2.79 L Hgb 8.7 L Hct 27.3 L MCV 98 H D RDW 19.4 H Plt Count 94 L [place] % (Auto) 15.3 H Potassium BUN Creatinine Est GFR ( Amer) Est GFR (MDRD) Non-Af Glucose POC Glucose Alkaline Phosphatase NT-Pro-B Natriuret Pep 8150 H Albumin Urine Protein 100 H Urine Urobilinogen 2.0 H Ur Leukocyte Esterase MODERATE H Urine Ascorbic Acid 40 H 07/25/19 07/25/19 14:51 17:50 RBC Hgb Hct MCV RDW Plt Count [place] % (Auto) Potassium 5.4 H BUN 52 H Creatinine 2.89 H Est GFR ( Amer) 20 L Est GFR (MDRD) Non-Af 16 L Glucose 70 L POC Glucose 61 L Alkaline Phosphatase 228 H NT-Pro-B Natriuret Pep Albumin 3.3 L Urine Protein Urine Urobilinogen Ur Leukocyte Esterase Urine Ascorbic Acid - Diagnostic Test Radiology reviewed: Reports reviewed - EKG Interpretation by Me EKG shows normal: Sinus rhythm Rate: Bradycardia - 47 Discharge - Discharge Clinical Impression: Acute encephalopathy Acute renal failure Qualifiers: Acute renal failure type: unspecified Qualified Code(s): N17.9 - Acute kidney failure, unspecified Condition: Stable Disposition: ADMITTED INPATIENT Admitting Provider: Shahriar Unit Admitted: IMCU I personally performed the services described in the documentation, reviewed and edited the documentation which was dictated to the scribe in my presence, and it accurately records my words and actions.
[2019-07-25] MEDS ORDERED: DEXTROSE 50%-WATER 25 GM/50 ML DISP.SYRIN IV ONE (17:52)
[2019-07-25] MEDS ORDERED: DEXTROSE 40% GEL 15 GM TUBE PO PRN ×4 (19:14→19:35)
[2019-07-25] MEDS ORDERED: DEXTROSE 50%-WATER 25 GM/50 ML DISP.SYRIN IV PRN ×4 (19:14→19:35)
[2019-07-25] MEDS ORDERED: GLUCAGON,HUMAN RECOMB 1 MG INJ IM PRN ×2 (19:14→19:35)
[2019-07-25] MEDS ORDERED: DICYCLOMINE HCL 10 MG CAPSULE PO PRN (19:15)
[2019-07-25] MEDS ORDERED: DOCUSATE SODIUM 100 MG CAPSULE PO PRN (19:15)
[2019-07-25] MEDS ORDERED: IPRATROPIUM/ALBUTEROL 0.5-2.5 MG/3 ML AMPUL NEB PRN (19:15)
--- NOTE | 2019-07-25 20:33 | RADIOLOGY REPORT (SQ) ---
EXAM DESCRIPTION: XR CHEST 2 VIEWS COMPLETED DATE/TME: 07/25/2019 00:00 CLINICAL HISTORY: 64 years, Female, AMS, MIGUEL, UTI COMPARISON: Prior chest radiograph from 07/05/2019 NUMBER OF VIEWS: 2 TECHNIQUE: Frontal and lateral radiograph were acquired LIMITATIONS: None. FINDINGS: Status post median sternotomy. Cardiac and mediastinal contours are stable. Aeration of the right lung base appears improved from 07/05/2019. However, there is likely a small left pleural effusion with patchy left basilar consolidation. There is also some degree of right suprahilar opacity. No pneumothorax. IMPRESSION: Improved aeration of the right lung base. However, there is a persistent small left pleural effusion with left basilar consolidation which could indicate atelectasis, pneumonia, or edema. Similar findings about the right suprahilar region. Recommend follow-up to clearing. copyright 2010 [email or web address]- All Rights Reserved
--- NOTE | 2019-07-25 21:58 | PDOC H&P ---
History of Present Illness Admission Date/PCP: 07/25/19 17:56 [facility] Patient complains of: Leg swelling History of Present Illness: LEEANN FUNEZ is a 64 year old female patient known to my practice who was recently transferred from the hospital to the SNF for short term rehabilitation following admission for acute renal failure and hyperkalemia. She was initially managed in the ICU with significant improvement even following a return due to altered mental status during that hospitalization. She was returned to the ED today with complaint of leg swelling as per accompanying nursing note. In the ED she reported left arm and left leg pain. Her initial evaluation did revealed drowsiness that limit her contribution to her medical intake. Shed was found to be hypoglycemic necessitating administration of resuscitative measures. Laboratory assessment revealed worsening renal indices and urinalysis suggestive of possible UTI. Her NT-Pro BNP is lower than her last inpatient value. At the time of my bedside evaluation, she was fully awake and reported no food intake all day and probably contributed to her change in mental status. Her morbidities are as listed below. Past Medical History Cardiac Medical History: Reports: Congestive Heart Failure, Coronary Artery Disease, Myocardial Infarction, Hyperlipidema, Hypertension, Peripheral Vascular Disease Denies: Atrial Fibrillation Pulmonary Medical History: Reports: Bronchitis Denies: Asthma, Chronic Obstructive Pulmonary Disease (COPD), Pneumonia, Tuberculosis Neurological Medical History: Denies: Seizures Endocrine Medical History: Reports: Diabetes Mellitus Type 1, Diabetes Mellitus Type 2 Renal/ Medical History: Denies: End Stage Renal Disease Malignancy Medical History: GI Medical History: Reports: Diverticulitis - diverticulosis Denies: Gastroesophageal Reflux Disease, Hiatal Hernia Musculoskeltal Medical History: Denies: Arthritis Psychiatric Medical History: Denies: Bipolar Disorder, Depression Hematology: Denies: Anemia, Hemophilia, Sickle Cell Disease Infectious Medical History: Past Surgical History Past Surgical History: Reports: Coronary Artery Bypass Graft - May 16 2011, Tonsillectomy, Vascular Surgery Denies: Amputation, Appendectomy, Cardiac Catheterization, Section, Cholecystectomy, Hysterectomy, Mastectomy, Tubal Ligation Social History Lives with: [facility] Smoking Status: Unknown if Ever Smoked Frequency of Alcohol Use: None Hx Recreational Drug Use: No Drugs: None Hx Prescription Drug Abuse: No - Advance Directive Resuscitation Status: Full Code Family History Family History: CAD, Hyperlipidemia, Hypertension, Reviewed & Not Pertinent Parental Family History Reviewed: Yes Children Family History Reviewed: Yes Sibling(s) Family History Reviewed.: Yes Medication/Allergy Home Medications: Amlodipine Besylate [Norvasc 10 mg Tablet] 10 mg PO DAILY 11/30/18 Ascorbic Acid [Vitamin C 500 mg Tablet] 500 mg PO DAILY 11/30/18 Atorvastatin Calcium [Lipitor 20 mg Tablet] 20 mg PO QHS 11/30/18 Docusate Sodium [Colace 100 mg Capsule] 100 mg PO BIDP PRN 11/30/18 Ferrous Sulfate [Feosol 325 mg Tablet] 325 mg PO DAILY 11/30/18 Furosemide [Lasix 20 mg Tablet] 20 mg PO BID 11/30/18 Gabapentin [Neurontin 300 mg Capsule] 300 mg PO Q8 01/06/19 Insulin Degludec [Tresiba Flextouch U-100] 30 unit SQ DAILY 01/06/19 Escitalopram Oxalate [Lexapro 10 mg Tablet] 10 mg PO QHS #30 tablet 03/01/19 Carvedilol [Coreg 12.5 mg Tablet] 12.5 mg PO Q12 04/13/19 Cholecalciferol (Vitamin D3) [Vitamin D3 1000 Unit Tablet] 2,000 unit PO DAILY 04/13/19 Dicyclomine HCl [Bentyl 10 mg Capsule] 10 mg PO DAILY PRN 04/13/19 Famotidine [Pepcid] 20 mg PO BID 04/13/19 Hydralazine HCl 100 mg PO Q8 04/13/19 Ipratropium/Albuterol Sulfate [Duoneb 3 ml Ampul] 3 ml NEB RTQ6HP PRN 30 Days #60 vial.neb 04/20/19 Multivit,Tx with Iron,Minerals [Thera-M] 1 each PO DAILY 05/08/19 Olmesartan Medoxomil [Benicar] 20 mg PO DAILY 05/08/19 Sucralfate [Carafate 1 gm Tablet] 1 gm PO ACHS 05/08/19 Acetaminophen [Acetaminophen Extra Strength] 500 mg PO DAILYP PRN 07/01/19 Meclizine HCl [Verticalm] 12.5 mg PO TID #45 tablet 07/19/19 Omeprazole 20 mg PO DAILY 07/25/19 Ondansetron [Zofran Odt 4 mg Tablet] 1 tab PO Q6HP PRN #15 tab.rapdis 07/25/19 Oxycodone HCl/Acetaminophen [Percocet 5-325 mg Tablet] 1 tab PO TIDP PRN #10 tablet 07/25/19 Allergies/Adverse Reactions: pregabalin [From Lyrica] Allergy (Intermediate, Verified 07/03/19 07:18) RASH duloxetine Allergy (Verified 07/03/19 07:18) Review of Systems Constitutional: PRESENT: fatigue. ABSENT: chills, fever(s), headache(s), weight gain, weight loss Eyes: PRESENT: visual disturbances Ears: ABSENT: hearing changes Nose, Mouth, and Throat: PRESENT: headache(s), vertigo. ABSENT: mouth pain, sore throat Cardiovascular: ABSENT: chest pain, dyspnea on exertion, edema, orthropnea, palpitations Respiratory: ABSENT: cough, hemoptysis Gastrointestinal: PRESENT: abdominal pain - chronic and longstanding, nausea - occasionally. ABSENT: constipation, diarrhea, hematemesis, hematochezia, vomiti ng Genitourinary: ABSENT: dysuria, hematuria Musculoskeletal: PRESENT: joint swelling - chronic bilateral leg swelling Integumentary: ABSENT: rash, wounds Neurological: PRESENT: vertigo - since her recent hemorrhagic stroke. ABSENT: abnormal gait, abnormal speech, confusion, dizziness, focal weakness, syncope Psychiatric: ABSENT: anxiety, depression, homidical ideation, suicidal ideation Endocrine: ABSENT: cold intolerance, heat intolerance, polydipsia, polyuria Hematologic/Lymphatic: ABSENT: easy bleeding, easy bruising, lymphadenopathy Allergic/Immunologic: ABSENT: seasonal rhinorrhea Physical Exam Vital Signs: Temp Pulse Resp BP Pulse Ox 98 F 46 L 10 L 120/75 97 07/25/19 12:41 07/25/19 12:41 07/25/19 18:01 07/25/19 18:01 07/25/19 18:01 Intake & Output 07/24/19 07/25/19 07/26/19 06:59 06:59 06:59 Output Total 175 Balance -175 Weight 110.1 kg General appearance: PRESENT: morbidly obese Head exam: PRESENT: atraumatic, normocephalic Eye exam: PRESENT: conjunctiva pink, EOMI, PERRLA. ABSENT: scleral icterus Ear exam: PRESENT: normal external ear exam Mouth exam: PRESENT: moist Teeth exam: PRESENT: poor dentation Respiratory exam: PRESENT: clear to auscultation lele, decreased breath sounds - at lung bases Cardiovascular exam: PRESENT: RRR. ABSENT: diastolic murmur, rubs, systolic murmur Pulses: PRESENT: +2 pedal pulses bilateral, other - decrease peripheral pulsation in lower extremities Vascular exam: ABSENT: pallor GI/Abdominal exam: PRESENT: normal bowel sounds, soft, tenderness - nonspecifi lower quadrant tenderness to palpation. ABSENT: distended, guarding, mass, organolmegaly, rebound Rectal exam: PRESENT: deferred Extremities exam: PRESENT: pedal edema - chronic, left leg >> right leg Musculoskeletal exam: PRESENT: deformity - related to joint involvement with arthritis Neurological exam: PRESENT: alert, awake, oriented to person, oriented to place, oriented to time, oriented to situation, CN II-XII grossly intact. ABSENT: motor sensory deficit Psychiatric exam: PRESENT: appropriate affect, normal mood. ABSENT: homicidal ideation, suicidal ideation Skin exam: PRESENT: dry, warm, other - left heel stage 3 diabetic perssure ulcer with minimal purulent drainage. Results Laboratory Results: 07/25/19 14:51 07/25/19 14:51 07/25/19 07/25/19 07/25/19 12:38 12:38 12:38 WBC Cancelled RBC Cancelled Hgb Cancelled Hct Cancelled MCV Cancelled MCH Cancelled MCHC Cancelled RDW Cancelled Plt Count Cancelled Seg Neutrophils % Cancelled Sodium Cancelled Potassium Cancelled Chloride Cancelled Carbon Dioxide Cancelled Anion Gap Cancelled BUN Cancelled Creatinine Cancelled Est GFR ( Amer) Cancelled Est GFR (Non-Af Amer) Cancelled Glucose Cancelled Lactic Acid 0.7 Calcium Cancelled Magnesium Cancelled Total Bilirubin Cancelled AST Cancelled Alkaline Phosphatase Cancelled Total Protein Cancelled Albumin Cancelled Urine Color Urine Appearance Urine pH Ur Specific [place] Urine Protein Urine Glucose (UA) Urine Ketones Urine Blood Urine Nitrite Ur Leukocyte Esterase Urine WBC (Auto) Urine RBC (Auto) 07/25/19 07/25/19 07/25/19 13:15 14:51 14:51 WBC 4.8 RBC 2.79 L Hgb 8.7 L Hct 27.3 L MCV 98 H D MCH 31.2 MCHC 32.0 RDW 19.4 H Plt Count 94 L Seg Neutrophils % 63.2 Sodium 140.4 Potassium 5.4 H Chloride 106 Carbon Dioxide 29 Anion Gap 5 BUN 52 H Creatinine 2.89 H Est GFR ( Amer) 20 L Est GFR (Non-Af Amer) Glucose 70 L Lactic Acid Calcium 8.7 Magnesium 2.3 Total Bilirubin 1.0 AST 29 Alkaline Phosphatase 228 H Total Protein 7.5 Albumin 3.3 L Urine Color YELLOW Urine Appearance CLOUDY Urine pH 5.0 Ur Specific [place] 1.016 Urine Protein 100 H Urine Glucose (UA) NEGATIVE Urine Ketones NEGATIVE Urine Blood NEGATIVE Urine Nitrite NEGATIVE Ur Leukocyte Esterase MODERATE H Urine WBC (Auto) 38 Urine RBC (Auto) 39 07/25/19 12:38 NT-Pro-B Natriuret Pep 8150 H Impressions: Chest X-Ray 07/25/19 13:10 IMPRESSION: Small left pleural effusion. Assessment & Plan - Diagnosis (1) Acute renal failure Qualifiers: Acute renal failure type: unspecified Qualified Code(s): N17.9 - Acute kidney failure, unspecified Is this a current diagnosis for this admission?: Yes Plan: See admitting attending physician orders for details about care plan. (2) Acute encephalopathy Is this a current diagnosis for this admission?: Yes Plan: See admitting attending physician orders for details about care plan. (3) Abnormal urinalysis Is this a current diagnosis for this admission?: Yes Plan: See admitting attending physician orders for details about care plan. (4) Abdominal pain, chronic, bilateral lower quadrant Is this a current diagnosis for this admission?: Yes Plan: See admitting attending physician orders for details about care plan. (5) Chronic combined systolic (congestive) and diastolic (congestive) heart failure Is this a current diagnosis for this admission?: Yes Plan: See admitting attending physician orders for details about care plan. (6) Chronic combined systolic and diastolic CHF (congestive heart failure) Is this a current diagnosis for this admission?: Yes Plan: See admitting attending physician orders for details about care plan. (7) Diabetes mellitus type 2 in obese Is this a current diagnosis for this admission?: Yes Plan: See admitting attending physician orders for details about care plan. (8) Hypertension Qualifiers: Hypertension type: essential hypertension Qualified Code(s): I10 - Essential (primary) hypertension Is this a current diagnosis for this admission?: Yes Plan: See admitting attending physician orders for details about care plan. (9) Coronary artery disease Qualifiers: Coronary Disease-Associated Artery/Lesion type: unspecified vessel or lesion type Associated angina: without angina Is this a current diagnosis for this admission?: Yes Plan: See admitting attending physician orders for details about care plan. (10) Hyperlipidemia Qualifiers: Hyperlipidemia type: unspecified Qualified Code(s): E78.5 - Hyperlipidemia, unspecified Is this a current diagnosis for this admission?: Yes Plan: See admitting attending physician orders for details about care plan. (11) PVD (peripheral vascular disease) Is this a current diagnosis for this admission?: Yes Plan: See admitting attending physician orders for details about care plan. (12) Peripheral edema Is this a current diagnosis for this admission?: Yes Plan: See admitting attending physician orders for details about care plan. (13) Vertigo as late effect of cerebrovascular accident (CVA) Is this a current diagnosis for this admission?: Yes Plan: See admitting attending physician orders for details about care plan. (14) Chronic pain syndrome Is this a current diagnosis for this admission?: Yes Plan: See admitting attending physician orders for details about care plan. (15) Chronic use of opiate for therapeutic purpose Is this a current diagnosis for this admission?: Yes Plan: See admitting attending physician orders for details about care plan. - Time Time Spent: 50 to 70 Minutes Medications reviewed and adjusted accordingly: Yes Anticipated discharge: SNF Within: Other - Inpatient Certification Based on my medical assessment, after consideration of the patient's comorbidities, presenting symptoms, or acuity I expect that the services needed warrant INPATIENT care.: Yes I certify that my determination is in accordance with my understanding of Medicare's requirements for reasonable and necessary INPATIENT services [42 CFR 412.3e].: Yes Medical Necessity: Significant Comorbidiites Make Outpatient Treatment Too Risky, Need Close Monitoring Due to Risk of Patient Decompensation, Need For IV Fluids, Need For Continuous Telemetry Monitoring, Need for IV Antibiotics, Risk of Complication if Not Cared For in Hospital, Risk of Diagnosis Which Will Require Inpatient Eval/Care/Monitoring Post Hospital Care: D/C or Transfer Summary - Plan Summary Plan Summary: See admitting attending physician orders for details about care plan.
[2019-07-25] MEDS: CEFTRIAXONE 1 GM/D5W RTU 1 GM/50 ML RTUPB IV SCH (22:02)
[2019-07-25] MEDS: GABAPENTIN 300 MG CAPSULE PO SCH (22:03)
[2019-07-25] MEDS: ATORVASTATIN CALCIUM 20 MG TABLET PO SCH (22:03)
[2019-07-25] MEDS: CARVEDILOL 12.5 MG TABLET PO SCH (22:03)
[2019-07-25] MEDS: SUCRALFATE 1 GM TABLET PO SCH (22:04)
[2019-07-25] MEDS: ESCITALOPRAM OXALATE 10 MG TABLET PO SCH (22:04)
[2019-07-26] MEDS: INSULIN REG, HUMAN 100 UNIT/ML 3 ML VIAL (PYX) SUBCUT SCH ×5 (06:30→21:30)
[2019-07-26] MEDS: GABAPENTIN 300 MG CAPSULE PO SCH ×3 (06:30→21:48)
--- NOTE | 2019-07-26 08:21 | CDI QUERY ---
CDI Query CDI Review: Dear Provider, Please specify type "ENCEPHALOPATHY" noted in H&P: ACUTE METABOLIC ENCEPHALOPATHY? ACUTE TOXIC ENCEPHALOPATHY? OTHER? Thanks, Mónica Marie [phone]
[2019-07-26] MEDS: MECLIZINE HCL 25 MG TABLET PO SCH ×3 (09:20→17:01)
[2019-07-26] MEDS: MULTIVITAMIN TABLET PO SCH (09:20)
[2019-07-26] MEDS: ASCORBIC ACID 500 MG TABLET PO SCH (09:20)
[2019-07-26] MEDS: CHOLECALCIFEROL (D3) 1,000 UNIT (25 MCG) TABLET PO SCH (09:20)
[2019-07-26] MEDS: ENOXAPARIN SODIUM INJ 30 MG/0.3 ML DISP.SYRIN SUBCUT SCH (09:21)
[2019-07-26] MEDS: SUCRALFATE 1 GM TABLET PO SCH ×4 (09:21→21:48)
[2019-07-26] MEDS: CARVEDILOL 12.5 MG TABLET PO SCH ×2 (09:21→21:40)
[2019-07-26] MEDS: FERROUS SULFATE 325 MG TABLET PO SCH (09:21)
[2019-07-26] MEDS ORDERED: (PENDING PHARMACY ID) (Insulin Degludec [Tresiba Flextouch U-100] 30 UNIT) SUBCUT SCH (10:00)
[2019-07-26] MEDS ORDERED: MULTIVIT TX WITH IRON MINERALS PO SCH (10:00)
[2019-07-26] MEDS ORDERED: AMLODIPINE BESYLATE 10 MG TABLET PO SCH (10:00)
[2019-07-26] MEDS ORDERED: ENOXAPARIN SODIUM INJ 40 MG/0.4 ML DISP.SYRIN SUBCUT SCH (10:00)
--- NOTE | 2019-07-26 12:39 | EKG REPORT ---
SEVERITY:- BORDERLINE ECG - SINUS BRADYCARDIA BORDERLINE R WAVE PROGRESSION, ANTERIOR LEADS : Confirmed by: Daphnie Lujan 26-Jul-2019 12:38:43
--- NOTE | 2019-07-26 15:22 | PDOC PROGRESS REPORT ---
Subjective Progress Note for:: 07/26/19 Subjective:: No new issue. She denied any chest pain or difficulty with breathing. No fever or chills. No nausea or vomiting. Chronic lower abdominal pain persist. Vertigo improved. No headache presently. Reason For Visit: MIGUEL,UTI,AMS Physical Exam Vital Signs: Temp Pulse Resp BP Pulse Ox 97.8 F 53 L 20 107/45 L 97 07/26/19 06:53 07/26/19 14:00 07/26/19 06:53 07/26/19 06:53 07/26/19 06:53 Intake & Output 07/25/19 07/26/19 07/27/19 06:59 06:59 06:59 Intake Total 0 240 Output Total 205 51 Balance -205 189 Weight 107.7 kg General appearance: PRESENT: no acute distress, morbidly obese Head exam: PRESENT: atraumatic, normocephalic Eye exam: PRESENT: conjunctiva pink. ABSENT: scleral icterus Mouth exam: PRESENT: moist Teeth exam: PRESENT: poor dentation Respiratory exam: PRESENT: clear to auscultation lele, decreased breath sounds - at lung bases Cardiovascular exam: PRESENT: RRR, +S1, +S2. ABSENT: diastolic murmur, rubs, systolic murmur Vascular exam: ABSENT: pallor GI/Abdominal exam: PRESENT: normal bowel sounds, soft, tenderness - nonspecific to palpation over lower quadrants. ABSENT: distended, guarding, mass, organolmegaly, rebound Extremities exam: PRESENT: pedal edema - chronic and comparatively better Neurological exam: PRESENT: alert, awake, oriented to person, oriented to place, oriented to time, oriented to situation, CN II-XII grossly intact. ABSENT: motor sensory deficit Psychiatric exam: PRESENT: appropriate affect, normal mood. ABSENT: homicidal ideation, suicidal ideation Skin exam: PRESENT: dry, warm, other - stage 3 decubitus ulcer left heel region Results Laboratory Results: 07/25/19 14:51 07/25/19 14:51 07/25/19 07/25/19 14:51 14:51 WBC 4.8 RBC 2.79 L Hgb 8.7 L Hct 27.3 L MCV 98 H D MCH 31.2 MCHC 32.0 RDW 19.4 H Plt Count 94 L Seg Neutrophils % 63.2 Sodium 140.4 Potassium 5.4 H Chloride 106 Carbon Dioxide 29 Anion Gap 5 BUN 52 H Creatinine 2.89 H Est GFR ( Amer) 20 L Glucose 70 L Calcium 8.7 Magnesium 2.3 Total Bilirubin 1.0 AST 29 Alkaline Phosphatase 228 H Total Protein 7.5 Albumin 3.3 L 07/25/19 12:38 NT-Pro-B Natriuret Pep 8150 H Impressions: Chest X-Ray 07/25/19 13:10 IMPRESSION: Small left pleural effusion. Assessment & Plan - Diagnosis (1) Acute renal failure Qualifiers: Acute renal failure type: unspecified Qualified Code(s): N17.9 - Acute kidney failure, unspecified Is this a current diagnosis for this admission?: Yes (2) Abnormal urinalysis Is this a current diagnosis for this admission?: Yes (3) Acute metabolic encephalopathy Is this a current diagnosis for this admission?: Yes Plan: Continue current antibiotic coverage and gentle rehydration. (4) Abdominal pain, chronic, bilateral lower quadrant Is this a current diagnosis for this admission?: Yes (5) Chronic combined systolic (congestive) and diastolic (congestive) heart failure Is this a current diagnosis for this admission?: Yes (6) Chronic combined systolic and diastolic CHF (congestive heart failure) Is this a current diagnosis for this admission?: Yes (7) Diabetes mellitus type 2 in obese Is this a current diagnosis for this admission?: Yes (8) Hypertension Qualifiers: Hypertension type: essential hypertension Qualified Code(s): I10 - Essential (primary) hypertension Is this a current diagnosis for this admission?: Yes (9) Coronary artery disease Qualifiers: Coronary Disease-Associated Artery/Lesion type: unspecified vessel or lesion type Associated angina: without angina Is this a current diagnosis for this admission?: Yes (10) Hyperlipidemia Qualifiers: Hyperlipidemia type: unspecified Qualified Code(s): E78.5 - Hyperlipidemia, unspecified Is this a current diagnosis for this admission?: Yes (11) PVD (peripheral vascular disease) Is this a current diagnosis for this admission?: Yes (12) Peripheral edema Is this a current diagnosis for this admission?: Yes (13) Vertigo as late effect of cerebrovascular accident (CVA) Is this a current diagnosis for this admission?: Yes (14) Chronic pain syndrome Is this a current diagnosis for this admission?: Yes (15) Chronic use of opiate for therapeutic purpose Is this a current diagnosis for this admission?: Yes - Time Time Spent with patient: 25-34 minutes Level of Care: IMCU Medications reviewed and adjusted accordingly: Yes Anticipated discharge: SNF Within: Other - Inpatient Certification Based on my medical assessment, after consideration of the patient's comorbidities, presenting symptoms, or acuity I expect that the services needed warrant INPATIENT care.: Yes I certify that my determination is in accordance with my understanding of Medicare's requirements for reasonable and necessary INPATIENT services [42 CFR 412.3e].: Yes Medical Necessity: Significant Comorbidiites Make Outpatient Treatment Too Risky, Need Close Monitoring Due to Risk of Patient Decompensation, Need For IV Fluids, Need For Continuous Telemetry Monitoring, Need for IV Antibiotics, Risk of Complication if Not Cared For in Hospital, Risk of Diagnosis Which Will Require Inpatient Eval/Care/Monitoring Post Hospital Care: D/C or Transfer Summary - Plan Summary Plan Summary: Continue current medication management and IV fluid management. Obtain CBC with diff and CMP in am.
[2019-07-26] MEDS: ESCITALOPRAM OXALATE 10 MG TABLET PO SCH (21:43)
[2019-07-26] MEDS ORDERED: METOPROLOL TARTRATE PF/INJ 5 MG/5 ML SDV IV PRN (21:47)
[2019-07-26] MEDS: ATORVASTATIN CALCIUM 20 MG TABLET PO SCH (21:48)
[2019-07-26] MEDS: CEFTRIAXONE 1 GM/D5W RTU 1 GM/50 ML RTUPB IV SCH (21:48)
[2019-07-26 22:05] LABS: HEMATOCRIT 25.7 % (36.0-47.0); HEMOGLOBIN 8.1 g/dL (12.0-15.5); MEAN CORPUSCULAR HEMOGLOBIN 30.8 pg (27.0-33.4); MEAN CORPUSCULAR HGB CONC 31.6 g/dL (32.0-36.0); MEAN CORPUSCULAR VOLUME 97 fl (80-97); RED BLOOD COUNT 2.64 10^6/uL (3.72-5.28)
[2019-07-26 22:22] LABS: ALKALINE PHOSPHATASE 253 U/L (38-126); ANION GAP 5 (5-19); ASPARTATE AMINO TRANSFERASE 30 U/L (14-36); BILIRUBIN,DIRECT 0.2 mg/dL (0.0-0.4); BILIRUBIN,TOTAL 0.7 mg/dL (0.2-1.3); BLOOD UREA NITROGEN 58 mg/dL (7-20); CALCIUM 8.6 mg/dL (8.4-10.2); CARBON DIOXIDE 27 mmol/L (22-30); CHLORIDE 107 mmol/L (98-107); GLUCOSE 125 mg/dL (75-110); TOTAL PROTEIN 6.9 g/dL (6.3-8.2)
[2019-07-26 22:23] LABS: CREATINE KINASE < 20 U/L (30-135)
[2019-07-26 22:26] LABS: PLATELET COUNT 85 10^3/uL (150-450)
[2019-07-26 22:33] LABS: CREATINE KINASE MB 0.3 ng/mL (<4.55); TROPONIN I 0.014 ng/mL
[2019-07-26] MEDS ORDERED: SODIUM POLYSTYRENE SULFONATE 15 GM/60 ML PO ONE (23:00)
[2019-07-26] MEDS ORDERED: INSULIN REG, HUMAN 100 UNIT/ML 3 ML VIAL (PYX) IV ONE (23:00)
[2019-07-26] MEDS ORDERED: CALCIUM GLUCONATE 1000 MG/10 ML INJ IV ONE (23:00)
[2019-07-26] MEDS ORDERED: DEXTROSE 50%-WATER 25 GM/50 ML DISP.SYRIN IV ONE (23:00)
[2019-07-26] MEDS ORDERED: IPRATROPIUM/ALBUTEROL 0.5-2.5 MG/3 ML AMPUL NEB ONE (23:00)
[2019-07-27] MEDS: GABAPENTIN 300 MG CAPSULE PO SCH ×3 (05:31→21:00)
[2019-07-27 06:28] LABS: ABSOLUTE EOSINOPHILS # (AUTO) 0.1 10^3/uL (0.0-0.6); ABSOLUTE MONOCYTES (AUTO) 0.7 10^3/uL (0.1-1.4); BASOPHILS % (AUTO) 0.4 % (0-2); EOSINOPHILS % (AUTO) 2.3 % (0-6); HEMOGLOBIN 8.4 g/dL (12.0-15.5); LYMPHOCYTES % (AUTO) 20.9 % (13-45); MEAN CORPUSCULAR HEMOGLOBIN 31.1 pg (27.0-33.4); MEAN CORPUSCULAR HGB CONC 32.3 g/dL (32.0-36.0); MEAN CORPUSCULAR VOLUME 96 fl (80-97); MONOCYTES % (AUTO) 14.2 % (3-13); RED CELL DISTRIBUTION WIDTH 18.4 % (11.5-14.0); SEGMENTED NEUTROPHILS % (AUTO) 62.2 % (42-78); TOTAL CELLS COUNTED % (AUTO) 100 %; WHITE BLOOD COUNT 4.8 10^3/uL (4.0-10.5)
[2019-07-27 06:54] LABS: ALBUMIN 3.1 g/dL (3.5-5.0); ALKALINE PHOSPHATASE 266 U/L (38-126); ANION GAP 7 (5-19); ASPARTATE AMINO TRANSFERASE 31 U/L (14-36); BILIRUBIN,DIRECT 0.2 mg/dL (0.0-0.4); BILIRUBIN,TOTAL 0.8 mg/dL (0.2-1.3); BLOOD UREA NITROGEN 59 mg/dL (7-20); CALCIUM 8.9 mg/dL (8.4-10.2); CARBON DIOXIDE 27 mmol/L (22-30); CHLORIDE 106 mmol/L (98-107); POTASSIUM 5.8 mmol/L (3.6-5.0); TOTAL PROTEIN 7.2 g/dL (6.3-8.2)
[2019-07-27 06:58] LABS: GLUCOSE 59 mg/dL (75-110)
[2019-07-27 07:06] LABS: PLATELET COUNT 83 10^3/uL (150-450)
[2019-07-27] MEDS: ASCORBIC ACID 500 MG TABLET PO SCH (10:07)
[2019-07-27] MEDS: MULTIVITAMIN TABLET PO SCH (10:07)
[2019-07-27] MEDS: FERROUS SULFATE 325 MG TABLET PO SCH (10:07)
[2019-07-27] MEDS: MECLIZINE HCL 25 MG TABLET PO SCH ×3 (10:07→17:26)
[2019-07-27] MEDS: ENOXAPARIN SODIUM INJ 30 MG/0.3 ML DISP.SYRIN SUBCUT SCH (10:07)
[2019-07-27] MEDS: SUCRALFATE 1 GM TABLET PO SCH ×4 (10:07→21:00)
[2019-07-27] MEDS: CHOLECALCIFEROL (D3) 1,000 UNIT (25 MCG) TABLET PO SCH (10:08)
[2019-07-27] MEDS: INSULIN REG, HUMAN 100 UNIT/ML 3 ML VIAL (PYX) SUBCUT SCH ×4 (10:19→22:13)
[2019-07-27] MEDS ORDERED: CALCIUM GLUCONATE 1000 MG/10 ML INJ IV ONE (20:16)
[2019-07-27] MEDS ORDERED: DEXTROSE 50%-WATER 25 GM/50 ML DISP.SYRIN IV ONE (20:17)
[2019-07-27] MEDS ORDERED: SODIUM POLYSTYRENE SULFONATE 15 GM/60 ML PO ONE (20:20)
--- NOTE | 2019-07-27 20:30 | PDOC PROGRESS REPORT ---
Subjective Progress Note for:: 07/27/19 Subjective:: Patient had episode of apneic event last night with need for rapid response intervention. She is reluctant with use of recommended BiPAP while sleeping. She may have MELLISA that need further evaluation on outpatient bases upon discharge. She denied any chest pain or difficulty with breathing presently on supplemental oxygen via nasal cannula. No fever or chills. No nausea or vomiting. Reason For Visit: MIGUEL,UTI,AMS Physical Exam Vital Signs: Temp Pulse Resp BP Pulse Ox 98.0 F 53 L 19 104/61 99 07/27/19 02:59 07/27/19 14:00 07/27/19 09:18 07/27/19 09:18 07/27/19 09:18 Intake & Output 07/26/19 07/27/19 07/28/19 06:59 06:59 06:59 Intake Total 50 1142 1062 Output Total 205 151 Balance -452 048 4789 Weight 107.7 kg 105.1 kg Physical Exam: General appearance: PRESENT: no acute distress, morbidly obese Head exam: PRESENT: atraumatic, normocephalic Eye exam: PRESENT: conjunctiva pink. ABSENT: pallor, scleral icterus Mouth exam: PRESENT: moist Teeth exam: PRESENT: poor dentition Respiratory exam: PRESENT: clear to auscultation lele, decreased breath sounds - at lung bases Cardiovascular exam: PRESENT: RRR, +S1, +S2. ABSENT: diastolic murmur, rubs, systolic murmur GI/Abdominal exam: PRESENT: normal bowel sounds, soft, tenderness - nonspecific to palpation over lower quadrants. ABSENT: distended, guarding, mass, organomegaly, rebound Extremities exam: PRESENT: pedal edema - chronic and comparatively better Neurological exam: PRESENT: alert, awake, oriented to person, oriented to place, oriented to time, oriented to situation, CN II-XII grossly intact. ABSENT: motor sensory deficit Psychiatric exam: PRESENT: appropriate affect, normal mood. ABSENT: homicidal ideation, suicidal ideation Skin exam: PRESENT: dry, warm, other - stage 3 decubitus ulcer left heel region Results Laboratory Results: 07/27/19 05:36 07/27/19 05:36 07/26/19 07/26/19 07/27/19 21:55 21:55 05:36 WBC 5.0 4.8 RBC 2.64 L 2.70 L Hgb 8.1 L 8.4 L Hct 25.7 L 26.0 L MCV 97 96 MCH 30.8 31.1 MCHC 31.6 L 32.3 RDW 19.0 H 18.4 H Plt Count 85 L 83 L Seg Neutrophils % 62.2 Sodium 138.7 Potassium 6.0 H* Chloride 107 Carbon Dioxide 27 Anion Gap 5 BUN 58 H Creatinine 3.31 H Est GFR ( Amer) 17 L Glucose 125 H Calcium 8.6 Magnesium 2.3 Total Bilirubin 0.7 AST 30 Alkaline Phosphatase 253 H Total Protein 6.9 Albumin 3.0 L 07/27/19 05:36 WBC RBC Hgb Hct MCV MCH MCHC RDW Plt Count Seg Neutrophils % Sodium 139.8 Potassium 5.8 H Chloride 106 Carbon Dioxide 27 Anion Gap 7 BUN 59 H Creatinine 3.32 H Est GFR ( Amer) 17 L Glucose 59 L Calcium 8.9 Magnesium Total Bilirubin 0.8 AST 31 Alkaline Phosphatase 266 H Total Protein 7.2 Albumin 3.1 L 07/25/19 07/26/19 07/26/19 12:38 21:55 21:55 Creatine Kinase < 20 L CK-MB (CK-2) 0.30 Troponin I 0.014 NT-Pro-B Natriuret Pep 8150 H Impressions: Chest X-Ray 07/25/19 13:10 IMPRESSION: Small left pleural effusion. Assessment & Plan - Diagnosis (1) Acute renal failure Qualifiers: Acute renal failure type: unspecified Qualified Code(s): N17.9 - Acute kidney failure, unspecified Is this a current diagnosis for this admission?: Yes (2) Abnormal urinalysis Is this a current diagnosis for this admission?: Yes (3) Acute metabolic encephalopathy Is this a current diagnosis for this admission?: Yes (4) Abdominal pain, chronic, bilateral lower quadrant Is this a current diagnosis for this admission?: Yes (5) Chronic combined systolic (congestive) and diastolic (congestive) heart failure Is this a current diagnosis for this admission?: Yes (6) Chronic combined systolic and diastolic CHF (congestive heart failure) Is this a current diagnosis for this admission?: Yes (7) Diabetes mellitus type 2 in obese Is this a current diagnosis for this admission?: Yes (8) Hypertension Qualifiers: Hypertension type: essential hypertension Qualified Code(s): I10 - Essential (primary) hypertension Is this a current diagnosis for this admission?: Yes (9) Coronary artery disease Qualifiers: Coronary Disease-Associated Artery/Lesion type: unspecified vessel or lesion type Associated angina: without angina Is this a current diagnosis for this admission?: Yes (10) Hyperlipidemia Qualifiers: Hyperlipidemia type: unspecified Qualified Code(s): E78.5 - Hyperlipidemia, unspecified Is this a current diagnosis for this admission?: Yes (11) PVD (peripheral vascular disease) Is this a current diagnosis for this admission?: Yes (12) Peripheral edema Is this a current diagnosis for this admission?: Yes (13) Vertigo as late effect of cerebrovascular accident (CVA) Is this a current diagnosis for this admission?: Yes (14) Chronic pain syndrome Is this a current diagnosis for this admission?: Yes (15) Chronic use of opiate for therapeutic purpose Is this a current diagnosis for this admission?: Yes (16) [place] cystitis Is this a current diagnosis for this admission?: Yes Plan: Start on Diflucan 100 mg now and thereafter q48 hours. - Time Time Spent with patient: 25-34 minutes Level of Care: IMCU Medications reviewed and adjusted accordingly: Yes Anticipated discharge: SNF Within: Other - Inpatient Certification Based on my medical assessment, after consideration of the patient's c omorbidities, presenting symptoms, or acuity I expect that the services needed warrant INPATIENT care.: Yes I certify that my determination is in accordance with my understanding of Medicare's requirements for reasonable and necessary INPATIENT services [42 CFR 412.3e].: Yes Medical Necessity: Significant Comorbidiites Make Outpatient Treatment Too Risky, Need Close Monitoring Due to Risk of Patient Decompensation, Need For Continuous Telemetry Monitoring, Need for IV Antibiotics, Risk of Complication if Not Cared For in Hospital, Risk of Diagnosis Which Will Require Inpatient Eval/Care/Monitoring Post Hospital Care: D/C or Transfer Summary - Plan Summary Plan Summary: See attending physician orders for details about care plan.
[2019-07-27] MEDS ORDERED: FLUCONAZOLE 100 MG TABLET PO ONE (20:31)
--- NOTE | 2019-07-27 20:48 | EKG REPORT ---
SEVERITY:- ABNORMAL ECG - SINUS BRADYCARDIA BORDERLINE LEFT AXIS DEVIATION BORDERLINE R WAVE PROGRESSION, ANTERIOR LEADS BORDERLINE T ABNORMALITIES, ANT-LAT LEADS : Confirmed by: Daphnie Lujan 27-Jul-2019 20:47:34
[2019-07-27] MEDS: ATORVASTATIN CALCIUM 20 MG TABLET PO SCH (21:00)
[2019-07-27] MEDS ORDERED: INSULIN REG, HUMAN 100 UNIT/ML 3 ML VIAL (PYX) IV ONE (21:00)
[2019-07-28] MEDS: GABAPENTIN 300 MG CAPSULE PO SCH ×3 (05:31→22:17)
[2019-07-28 05:54] LABS: ABSOLUTE EOSINOPHILS # (AUTO) 0.1 10^3/uL (0.0-0.6); ABSOLUTE LYMPHOCYTES (AUTO) 1.1 10^3/uL (0.5-4.7); ABSOLUTE MONOCYTES (AUTO) 0.6 10^3/uL (0.1-1.4); BASOPHILS % (AUTO) 0.6 % (0-2); EOSINOPHILS % (AUTO) 3.2 % (0-6); HEMATOCRIT 25.5 % (36.0-47.0); HEMOGLOBIN 8.2 g/dL (12.0-15.5); LYMPHOCYTES % (AUTO) 27.7 % (13-45); MEAN CORPUSCULAR HGB CONC 32.2 g/dL (32.0-36.0); MEAN CORPUSCULAR VOLUME 96 fl (80-97); RED BLOOD COUNT 2.65 10^6/uL (3.72-5.28); RED CELL DISTRIBUTION WIDTH 18.1 % (11.5-14.0); SEGMENTED NEUTROPHILS % (AUTO) 52.5 % (42-78); TOTAL CELLS COUNTED % (AUTO) 100 %; WHITE BLOOD COUNT 3.8 10^3/uL (4.0-10.5)
[2019-07-28 06:09] LABS: ANION GAP 6 (5-19); BLOOD UREA NITROGEN 66 mg/dL (7-20); CALCIUM 8.8 mg/dL (8.4-10.2); CARBON DIOXIDE 28 mmol/L (22-30); CHLORIDE 105 mmol/L (98-107); GLUCOSE 91 mg/dL (75-110); POTASSIUM 5.3 mmol/L (3.6-5.0)
[2019-07-28 06:22] LABS: PLATELET COUNT 83 10^3/uL (150-450)
[2019-07-28] MEDS: INSULIN REG, HUMAN 100 UNIT/ML 3 ML VIAL (PYX) SUBCUT SCH ×4 (08:31→22:16)
[2019-07-28] MEDS: SUCRALFATE 1 GM TABLET PO SCH ×4 (10:36→22:17)
[2019-07-28] MEDS: MECLIZINE HCL 25 MG TABLET PO SCH ×3 (10:37→17:30)
[2019-07-28] MEDS: MULTIVITAMIN TABLET PO SCH (10:37)
[2019-07-28] MEDS: FERROUS SULFATE 325 MG TABLET PO SCH (10:37)
[2019-07-28] MEDS: ASCORBIC ACID 500 MG TABLET PO SCH (10:37)
[2019-07-28] MEDS: CHOLECALCIFEROL (D3) 1,000 UNIT (25 MCG) TABLET PO SCH (10:37)
[2019-07-28] MEDS: ENOXAPARIN SODIUM INJ 30 MG/0.3 ML DISP.SYRIN SUBCUT SCH (10:38)
--- NOTE | 2019-07-28 11:46 | PDOC PROGRESS REPORT ---
Subjective Progress Note for:: 07/28/19 Subjective:: Patient continue to experience sensation of room and self spinning. No chest pain or difficulty with breathing. No fever or chills. No nausea or vomiting. Reason For Visit: MIGUEL,UTI,AMS Physical Exam Vital Signs: Temp Pulse Resp BP Pulse Ox 98.5 F 57 L 19 119/61 96 07/28/19 08:07 07/28/19 08:07 07/28/19 08:07 07/28/19 08:07 07/28/19 08:07 Intake & Output 07/27/19 07/28/19 07/29/19 06:59 06:59 06:59 Intake Total 1142 1322 Output Total 151 240 Balance 991 1082 Weight 105.1 kg 108.6 kg Physical Exam: General appearance: PRESENT: no acute distress, morbidly obese Head exam: PRESENT: atraumatic, normocephalic Eye exam: PRESENT: conjunctiva pink. ABSENT: pallor, scleral icterus Mouth exam: PRESENT: moist Teeth exam: PRESENT: poor dentition Respiratory exam: PRESENT: clear to auscultation lele, decreased breath sounds - at lung bases Cardiovascular exam: PRESENT: RRR, +S1, +S2. ABSENT: diastolic murmur, rubs, systolic murmur GI/Abdominal exam: PRESENT: normal bowel sounds, soft, tenderness - nonspecific to palpation over lower quadrants. ABSENT: distended, guarding, mass, organomegaly, rebound Extremities exam: PRESENT: pedal edema - chronic and comparatively better Neurological exam: PRESENT: alert, awake, oriented to person, oriented to place, oriented to time, oriented to situation, CN II-XII grossly intact. ABSENT: motor sensory deficit Psychiatric exam: PRESENT: appropriate affect, normal mood. ABSENT: homicidal ideation, suicidal ideation Skin exam: PRESENT: dry, warm, other - stage 3 decubitus ulcer left heel region Results Laboratory Results: 07/28/19 05:27 07/28/19 05:27 07/28/19 07/28/19 05:27 05:27 WBC 3.8 L RBC 2.65 L Hgb 8.2 L Hct 25.5 L MCV 96 MCH 31.0 MCHC 32.2 RDW 18.1 H Plt Count 83 L Seg Neutrophils % 52.5 Sodium 138.6 Potassium 5.3 H Chloride 105 Carbon Dioxide 28 Anion Gap 6 BUN 66 H Creatinine 3.68 H Est GFR ( Amer) 15 L Glucose 91 Calcium 8.8 07/25/19 07/26/19 07/26/19 12:38 21:55 21:55 Creatine Kinase < 20 L CK-MB (CK-2) 0.30 Troponin I 0.014 NT-Pro-B Natriuret Pep 8150 H Impressions: Chest X-Ray 07/25/19 13:10 IMPRESSION: Small left pleural effusion. Assessment & Plan - Diagnosis (1) Acute renal failure Qualifiers: Acute renal failure type: unspecified Qualified Code(s): N17.9 - Acute kidney failure, unspecified Is this a current diagnosis for this admission?: Yes (2) Abnormal urinalysis Is this a current diagnosis for this admission?: Yes (3) Acute metabolic encephalopathy Is this a current diagnosis for this admission?: Yes (4) Abdominal pain, chronic, bilateral lower quadrant Is this a current diagnosis for this admission?: Yes (5) Chronic combined systolic (congestive) and diastolic (congestive) heart failure Is this a current diagnosis for this admission?: Yes (6) Chronic combined systolic and diastolic CHF (congestive heart failure) Is this a current diagnosis for this admission?: Yes (7) Diabetes mellitus type 2 in obese Is this a current diagnosis for this admission?: Yes (8) Hypertension Qualifiers: Hypertension type: essential hypertension Qualified Code(s): I10 - Essential (primary) hypertension Is this a current diagnosis for this admission?: Yes (9) Coronary artery disease Qualifiers: Coronary Disease-Associated Artery/Lesion type: unspecified vessel or lesion type Associated angina: without angina Is this a current diagnosis for this admission?: Yes (10) Hyperlipidemia Qualifiers: Hyperlipidemia type: unspecified Qualified Code(s): E78.5 - Hyperlipidemia, unspecified Is this a current diagnosis for this admission?: Yes (11) PVD (peripheral vascular disease) Is this a current diagnosis for this admission?: Yes (12) Peripheral edema Is this a current diagnosis for this admission?: Yes (13) Vertigo as late effect of cerebrovascular accident (CVA) Is this a current diagnosis for this admission?: Yes (14) Chronic pain syndrome Is this a current diagnosis for this admission?: Yes (15) Chronic use of opiate for therapeutic purpose Is this a current diagnosis for this admission?: Yes (16) [place] cystitis Is this a current diagnosis for this admission?: Yes - Time Time Spent with patient: 25-34 minutes Level of Care: IMCU Medications reviewed and adjusted accordingly: Yes Anticipated discharge: SNF Within: Other - Inpatient Certification Based on my medical assessment, after consideration of the patient's comorbidities, presenting symptoms, or acuity I expect that the services needed warrant INPATIENT care.: Yes I certify that my determination is in accordance with my understanding of Medicare's requirements for reasonable and necessary INPATIENT services [42 CFR 412.3e].: Yes Medical Necessity: Significant Comorbidiites Make Outpatient Treatment Too Risky, Need Close Monitoring Due to Risk of Patient Decompensation, Need For Continuous Telemetry Monitoring, Risk of Complication if Not Cared For in Hospital, Risk of Diagnosis Which Will Require Inpatient Eval/Care/Monitoring Post Hospital Care: D/C or Transfer Summary - Plan Summary Plan Summary: Continue current medication management. Request PT evaluation.
[2019-07-28] MEDS: ATORVASTATIN CALCIUM 20 MG TABLET PO SCH (22:17)
[2019-07-29] MEDS: GABAPENTIN 300 MG CAPSULE PO SCH ×2 (05:32→22:30)
[2019-07-29] MEDS: INSULIN REG, HUMAN 100 UNIT/ML 3 ML VIAL (PYX) SUBCUT SCH ×4 (07:33→22:30)
[2019-07-29] MEDS: SUCRALFATE 1 GM TABLET PO SCH ×4 (07:51→22:30)
[2019-07-29] MEDS: ENOXAPARIN SODIUM INJ 30 MG/0.3 ML DISP.SYRIN SUBCUT SCH (09:42)
[2019-07-29] MEDS: MECLIZINE HCL 25 MG TABLET PO SCH ×3 (09:52→17:09)
[2019-07-29] MEDS: MULTIVITAMIN TABLET PO SCH (09:52)
[2019-07-29] MEDS: ASCORBIC ACID 500 MG TABLET PO SCH (09:52)
[2019-07-29] MEDS: FERROUS SULFATE 325 MG TABLET PO SCH (09:52)
[2019-07-29] MEDS: CHOLECALCIFEROL (D3) 1,000 UNIT (25 MCG) TABLET PO SCH (09:52)
[2019-07-29] MEDS ORDERED: ONDANSETRON HCL INJ/PF 4 MG/2 ML SDV IV ONE (10:40)
--- NOTE | 2019-07-29 12:04 | PDOC PROGRESS REPORT ---
Subjective Progress Note for:: 07/29/19 Subjective:: Patient had episode of vomiting this morning. Her vertigo symptom persist but less intense as per her assessment. No abdominal pain or diarrhea. No chest pain or difficulty with breathing. No fever or chills. Reason For Visit: MIGUEL,UTI,AMS Physical Exam Vital Signs: Temp Pulse Resp BP Pulse Ox 98.0 F 60 16 134/57 H 95 07/29/19 07:22 07/29/19 08:00 07/29/19 08:00 07/29/19 07:22 07/29/19 08:00 Intake & Output 07/28/19 07/29/19 07/30/19 06:59 06:59 06:59 Intake Total 1322 1134 Output Total 240 650 Balance 1082 484 Weight 108.6 kg 108.5 kg Physical Exam: General appearance: PRESENT: no acute distress, morbidly obese Head exam: PRESENT: atraumatic, normocephalic Eye exam: PRESENT: conjunctiva pink. ABSENT: pallor, scleral icterus Mouth exam: PRESENT: moist Teeth exam: PRESENT: poor dentition Respiratory exam: PRESENT: clear to auscultation lele, decreased breath sounds - at lung bases Cardiovascular exam: PRESENT: RRR, +S1, +S2. ABSENT: diastolic murmur, rubs, systolic murmur GI/Abdominal exam: PRESENT: normal bowel sounds, soft, tenderness - nonspecific to palpation over lower quadrants. ABSENT: distended, guarding, mass, organomegaly, rebound Extremities exam: PRESENT: worsening pedal edema Neurological exam: PRESENT: alert, awake, oriented to person, oriented to place, oriented to time, oriented to situation, CN II-XII grossly intact. ABSENT: motor sensory deficit Psychiatric exam: PRESENT: appropriate affect, normal mood. ABSENT: homicidal ideation, suicidal ideation Skin exam: PRESENT: dry, warm, other - stage 3 decubitus ulcer left heel region Results Laboratory Results: 07/28/19 05:27 07/28/19 05:27 07/25/19 07/26/19 07/26/19 12:38 21:55 21:55 Creatine Kinase < 20 L CK-MB (CK-2) 0.30 Troponin I 0.014 NT-Pro-B Natriuret Pep 8150 H Impressions: Chest X-Ray 07/25/19 13:10 IMPRESSION: Small left pleural effusion. Assessment & Plan - Diagnosis (1) Acute renal failure Qualifiers: Acute renal failure type: unspecified Qualified Code(s): N17.9 - Acute kidney failure, unspecified Is this a current diagnosis for this admission?: Yes (2) Abnormal urinalysis Is this a current diagnosis for this admission?: Yes (3) Acute metabolic encephalopathy Is this a current diagnosis for this admission?: Yes (4) Abdominal pain, chronic, bilateral lower quadrant Is this a current diagnosis for this admission?: Yes (5) Chronic combined systolic (congestive) and diastolic (congestive) heart failure Is this a current diagnosis for this admission?: Yes (6) Chronic combined systolic and diastolic CHF (congestive heart failure) Is this a current diagnosis for this admission?: Yes (7) Diabetes mellitus type 2 in obese Is this a current diagnosis for this admission?: Yes (8) Hypertension Qualifiers: Hypertension type: essential hypertension Qualified Code(s): I10 - Essential (primary) hypertension Is this a current diagnosis for this admission?: Yes (9) Coronary artery disease Qualifiers: Coronary Disease-Associated Artery/Lesion type: unspecified vessel or lesion type Associated angina: without angina Is this a current diagnosis for this admission?: Yes (10) Hyperlipidemia Qualifiers: Hyperlipidemia type: unspecified Qualified Code(s): E78.5 - Hyperlipidemia, unspecified Is this a current diagnosis for this admission?: Yes (11) PVD (peripheral vascular disease) Is this a current diagnosis for this admission?: Yes (12) Peripheral edema Is this a current diagnosis for this admission?: Yes (13) Vertigo as late effect of cerebrovascular accident (CVA) Is this a current diagnosis for this admission?: Yes (14) Chronic pain syndrome Is this a current diagnosis for this admission?: Yes (15) Chronic use of opiate for therapeutic purpose Is this a current diagnosis for this admission?: Yes (16) [place] cystitis Is this a current diagnosis for this admission?: Yes - Time Time Spent with patient: 25-34 minutes Level of Care: IMCU Medications reviewed and adjusted accordingly: Yes Anticipated discharge: SNF Within: Other - Inpatient Certification Based on my medical assessment, after consideration of the patient's comorbidities, presenting symptoms, or acuity I expect that the services needed warrant INPATIENT care.: Yes I certify that my determination is in accordance with my understanding of Medicare's requirements for reasonable and necessary INPATIENT services [42 CFR 412.3e].: Yes Medical Necessity: Significant Comorbidiites Make Outpatient Treatment Too Risky, Need Close Monitoring Due to Risk of Patient Decompensation, Need For Continuous Telemetry Monitoring, Risk of Complication if Not Cared For in Hospital, Risk of Diagnosis Which Will Require Inpatient Eval/Care/Monitoring 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 Request nephrology consultation in view her worsening indices and edema.
[2019-07-29] MEDS: ATORVASTATIN CALCIUM 20 MG TABLET PO SCH (22:30)
[2019-07-30] MEDS: INSULIN REG, HUMAN 100 UNIT/ML 3 ML VIAL (PYX) SUBCUT SCH ×4 (10:17→23:16)
[2019-07-30] MEDS: ENOXAPARIN SODIUM INJ 30 MG/0.3 ML DISP.SYRIN SUBCUT SCH (10:19)
[2019-07-30] MEDS: ASCORBIC ACID 500 MG TABLET PO SCH (10:25)
[2019-07-30] MEDS: FERROUS SULFATE 325 MG TABLET PO SCH (10:25)
[2019-07-30] MEDS: CHOLECALCIFEROL (D3) 1,000 UNIT (25 MCG) TABLET PO SCH (10:25)
[2019-07-30] MEDS: GABAPENTIN 300 MG CAPSULE PO SCH ×2 (10:25→22:24)
[2019-07-30] MEDS: MECLIZINE HCL 25 MG TABLET PO SCH ×3 (10:25→17:58)
[2019-07-30] MEDS: SUCRALFATE 1 GM TABLET PO SCH ×4 (10:25→22:24)
[2019-07-30] MEDS: MULTIVITAMIN TABLET PO SCH (10:26)
--- NOTE | 2019-07-30 11:19 | PDOC CONSULTATION ---
Consultation Consult Date: 07/30/19 Provider Consulted: Moo FITZGERALD Consult reason:: MIGUEL History of Present Illness Admission Date/PCP: 07/25/19 17:56 RENANHENRIK LAZAR History of Present Illness: LEEANN FUNEZ is a 64 year old female with a history of underlying diabetes mellitus, hypertension, congestive heart failure, old CVA, obesity who had a recent admission on 30 June and discharged on the with MIGUEL and hyperkalemia was readmitted with history of progressive swelling of the legs and altered mental status. Evaluations in the hospital revealed that she was hypoglycemic and appropriate measures were instituted.Hypoglycemia was rectified with appropriate treatment and presently she is feeling good. She thinks she is at her baseline. She also admits to having lot of swelling in her legs without any pains. She denies any history of chest pain or shortness of breath. No severe abdominal pains dysuria hematuria fever or chills. She admits that she may have had a cough but was unable to bring up any phlegm. Her discharge creatinine on 12 July was 1.0. Her admission creatinine on the fourth of this month was 2.8 and has been progressively rising to 3.6 yesterday. She remains nonoliguric.Labs and medications were reviewed. Recent imaging studies done during her recent admissions was reviewed. Past Medical History Cardiac Medical History: Reports: Coronary Artery Disease, Hyperlipidemia, Hypertension-primary, Myocardial Infarction, Peripheral Vascular Disease Denies: Atrial Fibrillation Pulmonary Medical History: Reports: Bronchitis Denies: Asthma, Chronic Obstructive Pulmonary Disease (COPD), Pneumonia, Tuberculosis Neurological Medical History: Denies: Seizures Endocrine Medical History: Reports: Diabetes Mellitus Type 2 Renal/ Medical History: Denies: Benign Prostatic Hyperplasia, End Stage Renal Disease Malignancy Medical History: GI Medical History: Reports: Diverticulitis - diverticulosis Denies: Gastroesophageal Reflux Disease, Hiatal Hernia Musculoskeltal Medical History: Denies: Arthritis, Rheumatoid Arthritis, Systemic Lupus Erythematosus Psychiatric Medical History: Denies: Bipolar Disorder, Depression Infectious Medical History: Past Surgical History Past Surgical History: Reports: Coronary Artery Bypass Graft - May 16 2011, Tonsillectomy, Vascular Surgery Denies: Appendectomy, Cardiac Catheterization, Section, Cholecystectomy, Hysterectomy, Mastectomy, Tubal Ligation Social History Lives with: Custodial Smoking Status: Unknown if Ever Smoked Frequency of Alcohol Use: None Hx Recreational Drug Use: No Drugs: None Hx Prescription Drug Abuse: No - Advance Directive Resuscitation Status: Full Code Family History Parental Family History Reviewed: No Children Family History Reviewed: No Sibling(s) Family History Reviewed.: No Medication/Allergy Home Medications: Amlodipine Besylate [Norvasc 10 mg Tablet] 10 mg PO DAILY 11/30/18 Ascorbic Acid [Vitamin C 500 mg Tablet] 500 mg PO DAILY 11/30/18 Atorvastatin Calcium [Lipitor 20 mg Tablet] 20 mg PO QHS 11/30/18 Docusate Sodium [Colace 100 mg Capsule] 100 mg PO BIDP PRN 11/30/18 Ferrous Sulfate [Feosol 325 mg Tablet] 325 mg PO DAILY 11/30/18 Furosemide [Lasix 20 mg Tablet] 20 mg PO BID 11/30/18 Gabapentin [Neurontin 300 mg Capsule] 300 mg PO Q8 01/06/19 Insulin Degludec [Tresiba Flextouch U-100] 30 unit SQ DAILY 01/06/19 Escitalopram Oxalate [Lexapro 10 mg Tablet] 10 mg PO QHS #30 tablet 03/01/19 Carvedilol [Coreg 12.5 mg Tablet] 12.5 mg PO Q12 04/13/19 Cholecalciferol (Vitamin D3) [Vitamin D3 1000 Unit Tablet] 2,000 unit PO DAILY 04/13/19 Dicyclomine HCl [Bentyl 10 mg Capsule] 10 mg PO DAILY PRN 04/13/19 Famotidine [Pepcid] 20 mg PO BID 04/13/19 Hydralazine HCl 100 mg PO Q8 04/13/19 Ipratropium/Albuterol Sulfate [Duoneb 3 ml Ampul] 3 ml NEB RTQ6HP PRN 30 Days #60 vial.neb 04/20/19 Multivit,Tx with Iron,Minerals [Thera-M] 1 each PO DAILY 05/08/19 Olmesartan Medoxomil [Benicar] 20 mg PO DAILY 05/08/19 Sucralfate [Carafate 1 gm Tablet] 1 gm PO ACHS 05/08/19 Acetaminophen [Acetaminophen Extra Strength] 500 mg PO DAILYP PRN 07/01/19 Meclizine HCl [Verticalm] 12.5 mg PO TID #45 tablet 07/19/19 Omeprazole 20 mg PO DAILY 07/25/19 Ondansetron [Zofran Odt 4 mg Tablet] 1 tab PO Q6HP PRN #15 tab.rapdis 07/25/19 Oxycodone HCl/Acetaminophen [Percocet 5-325 mg Tablet] 1 tab PO TIDP PRN #10 tablet 07/25/19 Allergies/Adverse Reactions: pregabalin [From Lyrica] Allergy (Intermediate, Verified 07/03/19 07:18) RASH duloxetine Allergy (Verified 07/03/19 07:18) Review of Systems Constitutional: PRESENT: anorexia, fatigue, weakness. ABSENT: chills, fever(s), headache(s), night sweats Nose, Mouth, and Throat: ABSENT: mouth pain, sore throat Cardiovascular: PRESENT: dyspnea on exertion, edema. ABSENT: chest pain, orthropnea Respiratory: PRESENT: cough, dyspnea. ABSENT: hemoptysis Gastrointestinal: ABSENT: abdominal pain, coffee ground emesis, heartburn, hematemesis, hematochezia, nausea, vomiting Genitourinary: ABSENT: difficulty urinating, dysuria, hematuria Musculoskeletal: ABSENT: deformity, joint swelling Integumentary: ABSENT: lesions, pruritus, rash Neurological: PRESENT: confusion. ABSENT: focal weakness, frequent falls Psychiatric: ABSENT: hallucinations Hematologic/Lymphatic: ABSENT: easy bruising, lymphadenopathy Physical Exam Vital Signs: Temp Pulse Resp BP Pulse Ox 98.0 F 63 16 138/62 H 90 L 07/30/19 07:26 07/30/19 07:26 07/30/19 07:26 07/30/19 07:26 07/30/19 09:58 Intake & Output 07/29/19 07/30/19 07/31/19 06:59 06:59 06:59 Intake Total 1134 641 Output Total 650 900 Balance 484 -259 Weight 108.5 kg 110.8 kg General appearance: PRESENT: no acute distress Eye exam: PRESENT: EOMI, PERRLA. ABSENT: scleral icterus Ear exam: PRESENT: normal external ear exam Mouth exam: PRESENT: moist Neck exam: ABSENT: lymphadenopathy, meningismus, tenderness Respiratory exam: PRESENT: clear to auscultation lele, decreased breath sounds. ABSENT: crackles Cardiovascular exam: PRESENT: +S1, +S2 GI/Abdominal exam: PRESENT: normal bowel sounds, soft. ABSENT: organomegaly, tenderness Extremities exam: PRESENT: +1 edema Neurological exam: PRESENT: alert, awake, oriented to person, oriented to place Psychiatric exam: PRESENT: appropriate affect Skin exam: PRESENT: other - Venous stasis changes in both lower extremities.. ABSENT: erythema, mottled Results Laboratory Results: 07/28/19 05:27 07/28/19 05:27 07/25/19 07/26/19 07/26/19 12:38 21:55 21:55 Creatine Kinase < 20 L CK-MB (CK-2) 0.30 Troponin I 0.014 NT-Pro-B Natriuret Pep 8150 H Impressions: Chest X-Ray 07/25/19 13:10 IMPRESSION: Small left pleural effusion. Assessment & Plan - Diagnosis (1) Acute metabolic encephalopathy Is this a current diagnosis for this admission?: Yes Plan: Secondary to hypoglycemia and currently resolved. (2) Acute renal failure Qualifiers: Acute renal failure type: unspecified Qualified Code(s): N17.9 - Acute kidney failure, unspecified Is this a current diagnosis for this admission?: Yes Plan: Nonoliguric. Recent imaging studies did not show any obstructive uropathy. Currently differential diagnosis is possibly prerenal from poor intake and possibly hypotension. Currently she is normotensive and she her intake is good. However she is got evidences of fluid overload most likely from cor pulmonale possibly because of underlying undiagnosed sleep apnea. I am going to start of on low-dose of gentle IV diuresis. Otherwise no indications for renal replacements. (3) [place] cystitis Is this a current diagnosis for this admission?: Yes Plan: As per Dr. Lazar. She might benefit from renally dose adjusted Diflucan. (4) Anemia Qualifiers: Anemia type: other cause Plan: I would initiate work-up. (5) Diabetes mellitus type 2 in obese Plan: Recommend tight control. (6) Hypertension Qualifiers: Hypertension type: essential hypertension Qualified Code(s): I10 - Essential (primary) hypertension Is this a current diagnosis for this admission?: Yes Plan: Currently stable. (7) Obesity (BMI 30-39.9) Plan: Status quo (8) Pulmonary hypertension Plan: As per echocardiogram done in late 2019. Obviously this would need to be worked up as I believe she has cor pulmonale. (9) Proteinuria Plan: Monitor. New versus old.
[2019-07-30 11:32] LABS: ANION GAP 8 (5-19); BLOOD UREA NITROGEN 75 mg/dL (7-20); CALCIUM 9.1 mg/dL (8.4-10.2); CARBON DIOXIDE 29 mmol/L (22-30); CHLORIDE 104 mmol/L (98-107); GLUCOSE 102 mg/dL (75-110); POTASSIUM 5.3 mmol/L (3.6-5.0)
[2019-07-30] MEDS ORDERED: FLUCONAZOLE 100 MG TABLET PO ONE (14:00)
--- NOTE | 2019-07-30 19:29 | PDOC PROGRESS REPORT ---
Subjective Progress Note for:: 07/30/19 Subjective:: No chest pain or difficulty with breathing. Patient denied any nausea, vomiting, abdominal pain or diarrhea. No fever or chills. Reason For Visit: MIGUEL,UTI,AMS Physical Exam Vital Signs: Temp Pulse Resp BP Pulse Ox 98.0 F 63 16 138/62 H 90 L 07/30/19 07:26 07/30/19 07:26 07/30/19 07:26 07/30/19 07:26 07/30/19 09:58 Intake & Output 07/29/19 07/30/19 07/31/19 06:59 06:59 06:59 Intake Total 1134 641 Output Total 650 900 Balance 484 -259 Weight 108.5 kg 110.8 kg Physical Exam: General appearance: PRESENT: no acute distress, morbidly obese Head exam: PRESENT: atraumatic, normocephalic Eye exam: PRESENT: conjunctiva pink. ABSENT: pallor, scleral icterus Mouth exam: PRESENT: moist Teeth exam: PRESENT: poor dentition Respiratory exam: PRESENT: clear to auscultation lele, decreased breath sounds - at lung bases Cardiovascular exam: PRESENT: RRR, +S1, +S2. ABSENT: diastolic murmur, rubs, systolic murmur GI/Abdominal exam: PRESENT: normal bowel sounds, soft, tenderness - nonspecific to palpation over lower quadrants. ABSENT: distended, guarding, mass, organomegaly, rebound Extremities exam: PRESENT: worsening pedal edema Neurological exam: PRESENT: alert, awake, oriented to person, oriented to place, oriented to time, oriented to situation, CN II-XII grossly intact. ABSENT: motor sensory deficit Psychiatric exam: PRESENT: appropriate affect, normal mood. ABSENT: homicidal ideation, suicidal ideation Skin exam: PRESENT: dry, warm, other - stage 3 decubitus ulcer left heel region Results Laboratory Results: 07/28/19 05:27 07/30/19 10:52 07/30/19 10:52 Sodium 140.5 Potassium 5.3 H Chloride 104 Carbon Dioxide 29 Anion Gap 8 BUN 75 H Creatinine 3.87 H Est GFR ( Amer) 14 L Glucose 102 Calcium 9.1 07/25/19 07/26/19 07/26/19 12:38 21:55 21:55 Creatine Kinase < 20 L CK-MB (CK-2) 0.30 Troponin I 0.014 NT-Pro-B Natriuret Pep 8150 H Impressions: Chest X-Ray 07/25/19 13:10 IMPRESSION: Small left pleural effusion. Assessment & Plan - Diagnosis (1) Acute renal failure Qualifiers: Acute renal failure type: unspecified Qualified Code(s): N17.9 - Acute kidney failure, unspecified Is this a current diagnosis for this admission?: Yes (2) Abnormal urinalysis Is this a current diagnosis for this admission?: Yes (3) Acute metabolic encephalopathy Is this a current diagnosis for this admission?: Yes (4) Abdominal pain, chronic, bilateral lower quadrant Is this a current diagnosis for this admission?: Yes (5) Chronic combined systolic (congestive) and diastolic (congestive) heart failure Is this a current diagnosis for this admission?: Yes (6) Chronic combined systolic and diastolic CHF (congestive heart failure) Is this a current diagnosis for this admission?: Yes (7) Diabetes mellitus type 2 in obese Is this a current diagnosis for this admission?: Yes (8) Hypertension Qualifiers: Hypertension type: essential hypertension Qualified Code(s): I10 - Essential (primary) hypertension Is this a current diagnosis for this admission?: Yes (9) Coronary artery disease Qualifiers: Coronary Disease-Associated Artery/Lesion type: unspecified vessel or lesion type Associated angina: without angina Is this a current diagnosis for this admission?: Yes (10) Hyperlipidemia Qualifiers: Hyperlipidemia type: unspecified Qualified Code(s): E78.5 - Hyperlipidemia, unspecified Is this a current diagnosis for this admission?: Yes (11) PVD (peripheral vascular disease) Is this a current diagnosis for this admission?: Yes (12) Peripheral edema Is this a current diagnosis for this admission?: Yes (13) Vertigo as late effect of cerebrovascular accident (CVA) Is this a current diagnosis for this admission?: Yes (14) Chronic pain syndrome Is this a current diagnosis for this admission?: Yes (15) Chronic use of opiate for therapeutic purpose Is this a current diagnosis for this admission?: Yes (16) [place] cystitis Is this a current diagnosis for this admission?: Yes Plan: See attending physician orders. - Time Time Spent with patient: 25-34 minutes Level of Care: IMCU Medications reviewed and adjusted accordingly: Yes Anticipated discharge: SNF Within: Other - Inpatient Certification Based on my medical assessment, after consideration of the patient's comorbidities, presenting symptoms, or acuity I expect that the services needed warrant INPATIENT care.: Yes I certify that my determination is in accordance with my understanding of Medicare's requirements for reasonable and necessary INPATIENT services [42 CFR 412.3e].: Yes Medical Necessity: Significant Comorbidiites Make Outpatient Treatment Too Risky, Need Close Monitoring Due to Risk of Patient Decompensation, Need For IV Fluids, Need For Continuous Telemetry Monitoring, Risk of Complication if Not Cared For in Hospital, Risk of Diagnosis Which Will Require Inpatient Eval/Care/Monitoring - Plan Summary Plan Summary: Renal business analysis consultant input noted. Start on renal adjusted dose Diflucan therapy for [place] cystitis. Continue all other current medication management.
[2019-07-30] MEDS: FUROSEMIDE INJ/PF 20 MG/2 ML SDV IV SCH (22:24)
[2019-07-30] MEDS: ATORVASTATIN CALCIUM 20 MG TABLET PO SCH (22:24)
[2019-07-31 06:00] LABS: ABSOLUTE RETICS # 0.014 10^6/uL (0.028-0.122); RETICULOCYTE COUNT (AUTO) 0.54 % (0.66-2.85)
[2019-07-31 06:10] LABS: IRON(TIBC) 34.1 ug/dL (37-170)
[2019-07-31] MEDS: INSULIN REG, HUMAN 100 UNIT/ML 3 ML VIAL (PYX) SUBCUT SCH ×4 (07:53→21:41)
[2019-07-31 08:19] LABS: ANION GAP 8 (5-19); BLOOD UREA NITROGEN 76 mg/dL (7-20); CALCIUM 9.3 mg/dL (8.4-10.2); CARBON DIOXIDE 28 mmol/L (22-30); CHLORIDE 105 mmol/L (98-107); GLUCOSE 110 mg/dL (75-110); POTASSIUM 5.3 mmol/L (3.6-5.0)
[2019-07-31] MEDS: MECLIZINE HCL 25 MG TABLET PO SCH ×3 (09:03→17:30)
[2019-07-31] MEDS: SUCRALFATE 1 GM TABLET PO SCH ×4 (09:03→21:50)
[2019-07-31] MEDS: MULTIVITAMIN TABLET PO SCH (09:03)
[2019-07-31] MEDS: FLUCONAZOLE 100 MG TABLET PO SCH (09:03)
[2019-07-31] MEDS: GABAPENTIN 300 MG CAPSULE PO SCH ×2 (09:03→21:50)
[2019-07-31] MEDS: ASCORBIC ACID 500 MG TABLET PO SCH (09:03)
[2019-07-31] MEDS: FERROUS SULFATE 325 MG TABLET PO SCH (09:03)
[2019-07-31] MEDS: FUROSEMIDE INJ/PF 20 MG/2 ML SDV IV SCH ×2 (09:03→21:50)
[2019-07-31] MEDS: CHOLECALCIFEROL (D3) 1,000 UNIT (25 MCG) TABLET PO SCH (09:03)
[2019-07-31] MEDS: ENOXAPARIN SODIUM INJ 30 MG/0.3 ML DISP.SYRIN SUBCUT SCH (09:04)
--- NOTE | 2019-07-31 18:26 | PDOC PROGRESS REPORT ---
Subjective Progress Note for:: 07/31/19 Subjective:: Patient denied chest pain or difficulty with breathing. No nausea, vomiting, abdominal pain or diarrhea. No fever or chills. Reason For Visit: MIGUEL,UTI,AMS Physical Exam Vital Signs: Temp Pulse Resp BP Pulse Ox 97.8 F 64 17 144/63 H 91 L 07/31/19 16:06 07/31/19 16:06 07/31/19 16:06 07/31/19 16:06 07/31/19 16:06 Intake & Output 07/30/19 07/31/19 08/01/19 06:59 06:59 06:59 Intake Total 641 372 240 Output Total 900 1050 400 Balance -783 -678 -160 Weight 110.8 kg 110.7 kg Physical Exam: General appearance: PRESENT: no acute distress, morbidly obese Head exam: PRESENT: atraumatic, normocephalic Eye exam: PRESENT: conjunctiva pink. ABSENT: pallor, scleral icterus Mouth exam: PRESENT: moist Teeth exam: PRESENT: poor dentition Respiratory exam: PRESENT: clear to auscultation lele, decreased breath sounds - at lung bases Cardiovascular exam: PRESENT: RRR, +S1, +S2. ABSENT: diastolic murmur, rubs, systolic murmur GI/Abdominal exam: PRESENT: normal bowel sounds, soft, tenderness - nonspecific to palpation over lower quadrants. ABSENT: distended, guarding, mass, organomegaly, rebound Extremities exam: PRESENT: chronic pedal edema Neurological exam: PRESENT: alert, awake, oriented to person, oriented to place, oriented to time, oriented to situation, CN II-XII grossly intact. ABSENT: motor sensory deficit Psychiatric exam: PRESENT: appropriate affect, normal mood. ABSENT: homicidal ideation, suicidal ideation Skin exam: PRESENT: dry, warm, other - stage 3 decubitus ulcer left heel region Results Laboratory Results: 07/28/19 05:27 07/31/19 05:15 07/31/19 07/31/19 07/31/19 05:15 05:15 05:15 Retic Count (auto) 0.54 L Sodium Potassium Chloride Carbon Dioxide Anion Gap BUN Creatinine Est GFR ( Amer) Glucose Calcium Iron 34.1 L TIBC 246 L % Saturation 14 Transferrin 178.00 L Ferritin 170.00 Vitamin B12 587.0 Folate 17.30 07/31/19 05:15 Retic Count (auto) Sodium 140.7 Potassium 5.3 H Chloride 105 Carbon Dioxide 28 Anion Gap 8 BUN 76 H Creatinine 3.70 H Est GFR ( Amer) 15 L Glucose 110 Calcium 9.3 Iron TIBC % Saturation Transferrin Ferritin Vitamin B12 Folate 07/25/19 07/26/19 07/26/19 12:38 21:55 21:55 Creatine Kinase < 20 L CK-MB (CK-2) 0.30 Troponin I 0.014 NT-Pro-B Natriuret Pep 8150 H Impressions: Chest X-Ray 07/25/19 13:10 IMPRESSION: Small left pleural effusion. Assessment & Plan - Diagnosis (1) Acute renal failure Qualifiers: Acute renal failure type: unspecified Qualified Code(s): N17.9 - Acute kidney failure, unspecified Is this a current diagnosis for this admission?: Yes (2) Abnormal urinalysis Is this a current diagnosis for this admission?: Yes (3) Acute metabolic encephalopathy Is this a current diagnosis for this admission?: Yes (4) Abdominal pain, chronic, bilateral lower quadrant Is this a current diagnosis for this admission?: Yes (5) Chronic combined systolic (congestive) and diastolic (congestive) heart failure Is this a current diagnosis for this admission?: Yes (6) Chronic combined systolic and diastolic CHF (congestive heart failure) Is this a current diagnosis for this admission?: Yes (7) Diabetes mellitus type 2 in obese Is this a current diagnosis for this admission?: Yes (8) Hypertension Qualifiers: Hypertension type: essential hypertension Qualified Code(s): I10 - Esse ntial (primary) hypertension Is this a current diagnosis for this admission?: Yes (9) Coronary artery disease Qualifiers: Coronary Disease-Associated Artery/Lesion type: unspecified vessel or lesion type Associated angina: without angina Is this a current diagnosis for this admission?: Yes (10) Hyperlipidemia Qualifiers: Hyperlipidemia type: unspecified Qualified Code(s): E78.5 - Hyperlipidemia, unspecified Is this a current diagnosis for this admission?: Yes (11) PVD (peripheral vascular disease) Is this a current diagnosis for this admission?: Yes (12) Peripheral edema Is this a current diagnosis for this admission?: Yes (13) Vertigo as late effect of cerebrovascular accident (CVA) Is this a current diagnosis for this admission?: Yes (14) Chronic pain syndrome Is this a current diagnosis for this admission?: Yes (15) Chronic use of opiate for therapeutic purpose Is this a current diagnosis for this admission?: Yes (16) [place] cystitis Is this a current diagnosis for this admission?: Yes - Time Time Spent with patient: 25-34 minutes Level of Care: IMCU Medications reviewed and adjusted accordingly: Yes Anticipated discharge: SNF Within: Other - Inpatient Certification Based on my medical assessment, after consideration of the patient's comorbidities, presenting symptoms, or acuity I expect that the services needed warrant INPATIENT care.: Yes I certify that my determination is in accordance with my understanding of Medicare's requirements for reasonable and necessary INPATIENT services [42 CFR 412.3e].: Yes Medical Necessity: Significant Comorbidiites Make Outpatient Treatment Too Risky, Need Close Monitoring Due to Risk of Patient Decompensation, Need For Co ntinuous Telemetry Monitoring, Risk of Complication if Not Cared For in Hospital, Risk of Diagnosis Which Will Require Inpatient Eval/Care/Monitoring Post Hospital Care: D/C or Transfer Summary - Plan Summary Plan Summary: Continue current medication management. Follow up on pending labs.
[2019-07-31] MEDS: ATORVASTATIN CALCIUM 20 MG TABLET PO SCH (21:50)
[2019-08-01 06:20] LABS: ANION GAP 8 (5-19); BLOOD UREA NITROGEN 77 mg/dL (7-20); CALCIUM 9.5 mg/dL (8.4-10.2); CARBON DIOXIDE 29 mmol/L (22-30); CHLORIDE 106 mmol/L (98-107); GLUCOSE 94 mg/dL (75-110); POTASSIUM 5.1 mmol/L (3.6-5.0)
[2019-08-01] MEDS: INSULIN REG, HUMAN 100 UNIT/ML 3 ML VIAL (PYX) SUBCUT SCH ×4 (08:23→21:27)
[2019-08-01] MEDS: ENOXAPARIN SODIUM INJ 30 MG/0.3 ML DISP.SYRIN SUBCUT SCH (09:05)
[2019-08-01] MEDS: CHOLECALCIFEROL (D3) 1,000 UNIT (25 MCG) TABLET PO SCH (09:08)
[2019-08-01] MEDS: FERROUS SULFATE 325 MG TABLET PO SCH (09:08)
[2019-08-01] MEDS: SUCRALFATE 1 GM TABLET PO SCH ×4 (09:08→21:27)
[2019-08-01] MEDS: ASCORBIC ACID 500 MG TABLET PO SCH (09:08)
[2019-08-01] MEDS: GABAPENTIN 300 MG CAPSULE PO SCH ×2 (09:08→21:27)
[2019-08-01] MEDS: FLUCONAZOLE 100 MG TABLET PO SCH (09:09)
[2019-08-01] MEDS: MULTIVITAMIN TABLET PO SCH (09:09)
[2019-08-01] MEDS: FUROSEMIDE INJ/PF 20 MG/2 ML SDV IV SCH ×2 (09:09→21:27)
[2019-08-01] MEDS: MECLIZINE HCL 25 MG TABLET PO SCH ×3 (09:09→17:14)
[2019-08-01] MEDS ORDERED: FERRIC CARBOXYMALTOSE INJ 750 MG/15 ML VIAL IV SCH (11:00)
--- NOTE | 2019-08-01 11:00 | PDOC PROGRESS REPORT ---
Subjective Progress Note for:: 08/01/19 Reason For Visit: Patient seen today. She is generally feeling somewhat better than when she came in. She denies any history of chest pain or shortness of breath but then she has hardly been exerting. However she admitted that she is beginning to have physical therapy done and has had no problems. She still has certain amount of pedal edema. Labs and medications were reviewed that shows improving creatinine. She is in negative balance since started on diuretics which is en couraging. Physical Exam Vital Signs: Temp Pulse Resp BP Pulse Ox 97.8 F 63 16 146/57 H 99 08/01/19 08:08 08/01/19 08:08 08/01/19 08:08 08/01/19 08:08 08/01/19 08:08 Intake & Output 07/31/19 08/01/19 08/02/19 06:59 06:59 06:59 Intake Total 372 740 Output Total 1050 2000 Balance -678 -1260 Weight 110.7 kg 107.6 kg General appearance: PRESENT: no acute distress Respiratory exam: PRESENT: clear to auscultation lele, decreased breath sounds. ABSENT: crackles Cardiovascular exam: PRESENT: +S1, +S2 GI/Abdominal exam: PRESENT: normal bowel sounds, soft. ABSENT: organomegaly, tenderness Extremities exam: PRESENT: +1 edema Neurological exam: PRESENT: alert, awake, oriented to person, oriented to place Psychiatric exam: PRESENT: appropriate affect Results Laboratory Results: 07/28/19 05:27 08/01/19 05:16 08/01/19 05:16 Sodium 142.9 Potassium 5.1 H Chloride 106 Carbon Dioxide 29 Anion Gap 8 BUN 77 H Creatinine 3.46 H Est GFR ( Amer) 16 L Glucose 94 Calcium 9.5 07/25/19 07/26/19 07/26/19 12:38 21:55 21:55 Creatine Kinase < 20 L CK-MB (CK-2) 0.30 Troponin I 0.014 NT-Pro-B Natriuret Pep 8150 H Impressions: Chest X-Ray 07/25/19 13:10 IMPRESSION: Small left pleural effusion. Assessment & Plan - Diagnosis (1) Acute metabolic encephalopathy Is this a current diagnosis for this admission?: Yes Plan: Resolved. (2) Acute renal failure Qualifiers: Acute renal failure type: unspecified Qualified Code(s): N17.9 - Acute kidney failure, unspecified Is this a current diagnosis for this admission?: Yes Plan: Nonoliguric. Improving renal numbers along with increasing urine output since starting her on IV diuretics. Continue current guidelines. (3) [place] cystitis Is this a current diagnosis for this admission?: Yes Plan: Patient on Diflucan. Monitor. (4) Anemia Qualifiers: Anemia type: other cause Plan: She has iron deficiency indicis along with anemia of chronic kidney disease. She is on p.o. iron sulfate but obviously is it is not producing the desired results which could be multifactorial including the fact she is on sucralfate. I am going to give a dose of IV iron later on will consider for erythropoietin. Discussed with her about IV iron including allergic/anaphylactic reactions and she is willing to proceed. (5) Diabetes mellitus type 2 in obese Plan: Advised tight control. (6) Hypertension Qualifiers: Hypertension type: essential hypertension Qualified Code(s): I10 - Essential (primary) hypertension Is this a current diagnosis for this admission?: Yes Plan: Relatively controlled. Monitor. (7) Obesity (BMI 30-39.9) Plan: Status quo. (8) Pulmonary hypertension Plan: With cor pulmonale. Continue diuresis gently. See response. (9) Proteinuria Plan: In the background of diabetic nephropathy. Monitor.
[2019-08-01] MEDS ORDERED: FERRIC CARBOXYMALTOSE 750 MG in NORMAL SALINE 100 ML IV ONE (12:00)
--- NOTE | 2019-08-01 13:16 | PDOC PROGRESS REPORT ---
Subjective Progress Note for:: 08/01/19 Subjective:: Patient denied chest pain or difficulty with breathing. No nausea, vomiting, abdominal pain or diarrhea. No fever or chills. Currently on IV iron infusion. Director Marketing Communications input noted. Reason For Visit: MIGUEL,UTI,AMS Physical Exam Vital Signs: Temp Pulse Resp BP Pulse Ox 98.3 F 65 22 H 150/71 H 92 08/01/19 12:08 08/01/19 12:08 08/01/19 12:08 08/01/19 12:08 08/01/19 12:08 Intake & Output 07/31/19 08/01/19 08/02/19 06:59 06:59 06:59 Intake Total 372 740 120 Output Total 1050 2000 Balance -678 -1260 120 Weight 110.7 kg 107.6 kg Physical Exam: General appearance: PRESENT: no acute distress, morbidly obese Head exam: PRESENT: atraumatic, normocephalic Eye exam: PRESENT: conjunctiva pink. ABSENT: pallor, scleral icterus Mouth exam: PRESENT: moist Teeth exam: PRESENT: poor dentition Respiratory exam: PRESENT: clear to auscultation lele, decreased breath sounds - at lung bases Cardiovascular exam: PRESENT: RRR, +S1, +S2. ABSENT: diastolic murmur, rubs, systolic murmur GI/Abdominal exam: PRESENT: normal bowel sounds, soft. ABSENT: distended, tenderness, guarding, mass, organomegaly, rebound Extremities exam: PRESENT: chronic pedal edema Neurological exam: PRESENT: alert, awake, oriented to person, oriented to place, oriented to time, oriented to situation, CN II-XII grossly intact. ABSENT: motor sensory deficit Psychiatric exam: PRESENT: appropriate affect, normal mood. ABSENT: homicidal ideation, suicidal ideation Skin exam: PRESENT: dry, warm, other - stage 3 decubitus ulcer left heel region Results Laboratory Results: 07/28/19 05:27 08/01/19 05:16 08/01/19 05:16 Sodium 142.9 Potassium 5.1 H Chloride 106 Carbon Dioxide 29 Anion Gap 8 BUN 77 H Creatinine 3.46 H Est GFR ( Amer) 16 L Glucose 94 Calcium 9.5 07/25/19 07/26/19 07/26/19 12:38 21:55 21:55 Creatine Kinase < 20 L CK-MB (CK-2) 0.30 Troponin I 0.014 NT-Pro-B Natriuret Pep 8150 H Impressions: Chest X-Ray 07/25/19 13:10 IMPRESSION: Small left pleural effusion. Assessment & Plan - Diagnosis (1) Acute renal failure Qualifiers: Acute renal failure type: unspecified Qualified Code(s): N17.9 - Acute kidney failure, unspecified Is this a current diagnosis for this admission?: Yes (2) Abnormal urinalysis Is this a current diagnosis for this admission?: Yes (3) Acute metabolic encephalopathy Is this a current diagnosis for this admission?: Yes (4) Abdominal pain, chronic, bilateral lower quadrant Is this a current diagnosis for this admission?: Yes (5) Chronic combined systolic (congestive) and diastolic (congestive) heart failure Is this a current diagnosis for this admission?: Yes (6) Chronic combined systolic and diastolic CHF (congestive heart failure) Is this a current diagnosis for this admission?: Yes (7) Diabetes mellitus type 2 in obese Is this a current diagnosis for this admission?: Yes (8) Hypertension Qualifiers: Hypertension type: essential hypertension Qualified Code(s): I10 - Essential (primary) hypertension Is this a current diagnosis for this admission?: Yes (9) Coronary artery disease Qualifiers: Coronary Disease-Associated Artery/Lesion type: unspecified vessel or lesion type Associated angina: without angina Is this a current diagnosis for this admission?: Yes (10) Hyperlipidemia Qualifiers: Hyperlipidemia type: unspecified Qualified Code(s): E78.5 - Hyperlipidemia, unspecified Is this a current diagnosis for this admission?: Yes (11) PVD (peripheral vascular disease) Is this a current diagnosis for this admission?: Yes (12) Peripheral edema Is this a current diagnosis for this admission?: Yes (13) Vertigo as late effect of cerebrovascular accident (CVA) Is this a current diagnosis for this admission?: Yes (14) Chronic pain syndrome Is this a current diagnosis for this admission?: Yes (15) Chronic use of opiate for therapeutic purpose Is this a current diagnosis for this admission?: Yes (16) [place] cystitis Is this a current diagnosis for this admission?: Yes - Time Time Spent with patient: 25-34 minutes Level of Care: IMCU Medications reviewed and adjusted accordingly: Yes Anticipated discharge: SNF Within: Other - Inpatient Certification Based on my medical assessment, after consideration of the patient's comorbidities, presenting symptoms, or acuity I expect that the services needed warrant INPATIENT care.: Yes I certify that my determination is in accordance with my understanding of Medicare's requirements for reasonable and necessary INPATIENT services [42 CFR 412.3e].: Yes Medical Necessity: Significant Comorbidiites Make Outpatient Treatment Too Risky, Need Close Monitoring Due to Risk of Patient Decompensation, Need For Continuous Telemetry Monitoring, Risk of Complication if Not Cared For in Hospital, Risk of Diagnosis Which Will Require Inpatient Eval/Care/Monitoring Post Hospital Care: D/C or Transfer Summary - Plan Summary Plan Summary: Continue current medication management. Follow up on pending labs.
[2019-08-01] MEDS: ATORVASTATIN CALCIUM 20 MG TABLET PO SCH (21:27)
[2019-08-02 06:03] LABS: ANION GAP 7 (5-19); BLOOD UREA NITROGEN 72 mg/dL (7-20); CALCIUM 9.6 mg/dL (8.4-10.2); CARBON DIOXIDE 30 mmol/L (22-30); CHLORIDE 107 mmol/L (98-107); GLUCOSE 92 mg/dL (75-110); POTASSIUM 4.9 mmol/L (3.6-5.0)
[2019-08-02] MEDS: INSULIN REG, HUMAN 100 UNIT/ML 3 ML VIAL (PYX) SUBCUT SCH ×4 (09:05→21:34)
[2019-08-02] MEDS: ENOXAPARIN SODIUM INJ 30 MG/0.3 ML DISP.SYRIN SUBCUT SCH (09:06)
[2019-08-02] MEDS: SUCRALFATE 1 GM TABLET PO SCH ×4 (09:09→21:29)
[2019-08-02] MEDS: ASCORBIC ACID 500 MG TABLET PO SCH (09:09)
[2019-08-02] MEDS: FLUCONAZOLE 100 MG TABLET PO SCH (09:09)
[2019-08-02] MEDS: MECLIZINE HCL 25 MG TABLET PO SCH ×3 (09:09→16:59)
[2019-08-02] MEDS: CHOLECALCIFEROL (D3) 1,000 UNIT (25 MCG) TABLET PO SCH (09:09)
[2019-08-02] MEDS: GABAPENTIN 300 MG CAPSULE PO SCH ×2 (09:09→21:29)
[2019-08-02] MEDS: MULTIVITAMIN TABLET PO SCH (09:09)
[2019-08-02] MEDS: FUROSEMIDE INJ/PF 20 MG/2 ML SDV IV SCH ×2 (09:10→21:29)
--- NOTE | 2019-08-02 12:26 | PDOC PROGRESS REPORT ---
Subjective Progress Note for:: 08/02/19 Reason For Visit: Patient seen today. She continues to feel better than the previous day. She denies any history of chest pain shortness of breath, fever or chills. Improving appetite. Labs and medications were reviewed that shows improving renal numbers. She remains nonoliguric. Discussions were done with the treating nurse. Physical Exam Vital Signs: Temp Pulse Resp BP Pulse Ox 98.5 F 70 20 155/63 H 98 08/02/19 08:28 08/02/19 08:28 08/02/19 08:28 08/02/19 08:28 08/02/19 08:28 Intake & Output 08/01/19 08/02/19 08/03/19 06:59 06:59 06:59 Intake Total 740 1046 Output Total 1999 3250 Balance -1260 -2204 Weight 107.6 kg 106.7 kg General appearance: PRESENT: no acute distress Respiratory exam: PRESENT: clear to auscultation lele, decreased breath sounds. ABSENT: crackles Cardiovascular exam: PRESENT: +S1, +S2 GI/Abdominal exam: PRESENT: normal bowel sounds, soft. ABSENT: organomegaly, tenderness Extremities exam: PRESENT: pedal edema Neurological exam: PRESENT: alert, awake, oriented to person, oriented to place Psychiatric exam: PRESENT: appropriate affect Results Laboratory Results: 07/28/19 05:27 08/02/19 05:21 08/02/19 05:21 Sodium 143.8 Potassium 4.9 Chloride 107 Carbon Dioxide 30 Anion Gap 7 BUN 72 H Creatinine 2.86 H Est GFR ( Amer) 20 L Glucose 92 Calcium 9.6 07/25/19 07/26/19 07/26/19 12:38 21:55 21:55 Creatine Kinase < 20 L CK-MB (CK-2) 0.30 Troponin I 0.014 NT-Pro-B Natriuret Pep 8150 H Impressions: Chest X-Ray 07/25/19 13:10 IMPRESSION: Small left pleural effusion. Assessment & Plan - Diagnosis (1) Acute metabolic encephalopathy Is this a current diagnosis for this admission?: Yes Plan: Resolved. (2) Acute renal failure Qualifiers: Acute renal failure type: unspecified Qualified Code(s): N17.9 - Acute kidney failure, unspecified Is this a current diagnosis for this admission?: Yes Plan: Nonoliguric. Improving renal numbers along with good urine output.. Continue current guidelines. (3) [place] cystitis Is this a current diagnosis for this admission?: Yes Plan: Patient on Diflucan. Monitor. (4) Anemia Qualifiers: Anemia type: other cause Plan: Status post IV iron. Monitor. Plan to start erythropoietin which can be done also as an outpatient. (5) Diabetes mellitus type 2 in obese Plan: Advised tight control. (6) Hypertension Qualifiers: Hypertension type: essential hypertension Qualified Code(s): I10 - Essential (primary) hypertension Is this a current diagnosis for this admission?: Yes Plan: Relatively controlled. Monitor. (7) Obesity (BMI 30-39.9) Plan: Status quo. (8) Pulmonary hypertension Plan: With cor pulmonale. Continue diuresis gently. See response. (9) Proteinuria Plan: In the background of diabetic nephropathy. Monitor.
--- NOTE | 2019-08-02 16:45 | PDOC PROGRESS REPORT ---
Subjective Progress Note for:: 08/02/19 Subjective:: Patient denied chest pain or difficulty with breathing. No fever or chills. No nausea, vomiting, abdominal pain or diarrhea. Reason For Visit: MIGUEL,UTI,AMS Physical Exam Vital Signs: Temp Pulse Resp BP Pulse Ox 98.5 F 70 20 155/63 H 98 08/02/19 08:28 08/02/19 14:00 08/02/19 08:28 08/02/19 08:28 08/02/19 08:28 Intake & Output 08/01/19 08/02/19 08/03/19 06:59 06:59 06:59 Intake Total 740 1046 Output Total 1999 3250 Balance -1260 -2204 Weight 107.6 kg 106.7 kg Physical Exam: General appearance: PRESENT: no acute distress, morbidly obese Head exam: PRESENT: atraumatic, normocephalic Eye exam: PRESENT: conjunctiva pink. ABSENT: pallor, scleral icterus Mouth exam: PRESENT: moist Teeth exam: PRESENT: poor dentition Respiratory exam: PRESENT: clear to auscultation lele, decreased breath sounds - at lung bases Cardiovascular exam: PRESENT: RRR, +S1, +S2. ABSENT: diastolic murmur, rubs, systolic murmur GI/Abdominal exam: PRESENT: normal bowel sounds, soft. ABSENT: distended, tenderness, guarding, mass, organomegaly, rebound Extremities exam: PRESENT: chronic pedal edema Neurological exam: PRESENT: alert, awake, oriented to person, oriented to place, oriented to time, oriented to situation, CN II-XII grossly intact. ABSENT: motor sensory deficit Psychiatric exam: PRESENT: appropriate affect, normal mood. ABSENT: homicidal ideation, suicidal ideation Skin exam: PRESENT: dry, warm, other - stage 3 decubitus ulcer left heel region Results Laboratory Results: 07/28/19 05:27 08/02/19 05:21 08/02/19 05:21 Sodium 143.8 Potassium 4.9 Chloride 107 Carbon Dioxide 30 Anion Gap 7 BUN 72 H Creatinine 2.86 H Est GFR ( Amer) 20 L Glucose 92 Calcium 9.6 07/25/19 07/26/19 07/26/19 12:38 21:55 21:55 Creatine Kinase < 20 L CK-MB (CK-2) 0.30 Troponin I 0.014 NT-Pro-B Natriuret Pep 8150 H Impressions: Chest X-Ray 07/25/19 13:10 IMPRESSION: Small left pleural effusion. Assessment & Plan - Diagnosis (1) Acute renal failure Qualifiers: Acute renal failure type: unspecified Qualified Code(s): N17.9 - Acute kidney failure, unspecified Is this a current diagnosis for this admission?: Yes (2) Abnormal urinalysis Is this a current diagnosis for this admission?: Yes (3) Acute metabolic encephalopathy Is this a current diagnosis for this admission?: Yes (4) Abdominal pain, chronic, bilateral lower quadrant Is this a current diagnosis for this admission?: Yes (5) Chronic combined systolic (congestive) and diastolic (congestive) heart failure Is this a current diagnosis for this admission?: Yes (6) Chronic combined systolic and diastolic CHF (congestive heart failure) Is this a current diagnosis for this admission?: Yes (7) Diabetes mellitus type 2 in obese Is this a current diagnosis for this admission?: Yes (8) Hypertension Qualifiers: Hypertension type: essential hypertension Qualified Code(s): I10 - Essential (primary) hypertension Is this a current diagnosis for this admission?: Yes (9) Coronary artery disease Qualifiers: Coronary Disease-Associated Artery/Lesion type: unspecified vessel or lesion type Associated angina: without angina Is this a current diagnosis for this admission?: Yes (10) Hyperlipidemia Qualifiers: Hyperlipidemia type: unspecified Qualified Code(s): E78.5 - Hyperlipidemia, unspecified Is this a current diagnosis for this admission?: Yes (11) PVD (peripheral vascular disease) Is this a current diagnosis for this admission?: Yes (12) Peripheral edema Is this a current diagnosis for this admission?: Yes (13) Vertigo as late effect of cerebrovascular accident (CVA) Is this a current diagnosis for this admission?: Yes (14) Chronic pain syndrome Is this a current diagnosis for this admission?: Yes (15) Chronic use of opiate for therapeutic purpose Is this a current diagnosis for this admission?: Yes (16) [place] cystitis Is this a current diagnosis for this admission?: Yes - Time Time Spent with patient: 25-34 minutes Level of Care: IMCU Medications reviewed and adjusted accordingly: Yes Anticipated discharge: SNF Within: Other - Inpatient Certification Based on my medical assessment, after consideration of the patient's comorbidities, presenting symptoms, or acuity I expect that the services needed warrant INPATIENT care.: Yes I certify that my determination is in accordance with my understanding of Medicare's requirements for reasonable and necessary INPATIENT services [42 CFR 412.3e].: Yes Medical Necessity: Significant Comorbidiites Make Outpatient Treatment Too Risky, Need Close Monitoring Due to Risk of Patient Decompensation, Need For Continuous Telemetry Monitoring, Risk of Complication if Not Cared For in Hospital, Risk of Diagnosis Which Will Require Inpatient Eval/Care/Monitoring Post Hospital Care: D/C or Transfer Summary - Plan Summary Plan Summary: Continue current medication management. Possible transfer to SNF in the next 3-4 days.
[2019-08-02] MEDS: ATORVASTATIN CALCIUM 20 MG TABLET PO SCH (21:28)
[2019-08-03 06:59] LABS: ANION GAP 9 (5-19); BLOOD UREA NITROGEN 68 mg/dL (7-20); CALCIUM 10.1 mg/dL (8.4-10.2); CARBON DIOXIDE 29 mmol/L (22-30); CHLORIDE 106 mmol/L (98-107); GLUCOSE 81 mg/dL (75-110); POTASSIUM 4.9 mmol/L (3.6-5.0)
[2019-08-03] MEDS: INSULIN REG, HUMAN 100 UNIT/ML 3 ML VIAL (PYX) SUBCUT SCH ×4 (08:31→23:02)
[2019-08-03] MEDS: ASCORBIC ACID 500 MG TABLET PO SCH (09:20)
[2019-08-03] MEDS: MULTIVITAMIN TABLET PO SCH (09:20)
[2019-08-03] MEDS: MECLIZINE HCL 25 MG TABLET PO SCH ×3 (09:20→17:24)
[2019-08-03] MEDS: ENOXAPARIN SODIUM INJ 30 MG/0.3 ML DISP.SYRIN SUBCUT SCH (09:21)
[2019-08-03] MEDS: FLUCONAZOLE 100 MG TABLET PO SCH (09:21)
[2019-08-03] MEDS: CHOLECALCIFEROL (D3) 1,000 UNIT (25 MCG) TABLET PO SCH (09:21)
[2019-08-03] MEDS: FUROSEMIDE INJ/PF 20 MG/2 ML SDV IV SCH ×2 (09:21→23:04)
[2019-08-03] MEDS: SUCRALFATE 1 GM TABLET PO SCH ×4 (09:21→23:04)
[2019-08-03] MEDS: GABAPENTIN 300 MG CAPSULE PO SCH ×2 (09:21→23:04)
--- NOTE | 2019-08-03 17:51 | PDOC PROGRESS REPORT ---
Subjective Progress Note for:: 08/03/19 Subjective:: Patient seen by the bedside, she has chronic comorbid conditions, chronically ill Reason For Visit: MIGUEL,UTI,AMS Physical Exam Vital Signs: Temp Pulse Resp BP Pulse Ox 98.2 F 75 17 152/67 H 94 08/03/19 03:50 08/03/19 14:00 08/03/19 03:50 08/03/19 03:50 08/03/19 16:50 Intake & Output 08/02/19 08/03/19 08/04/19 06:59 06:59 06:59 Intake Total 1046 1301 965 Output Total 3250 4250 1870 Balance -2204 -2949 -905 Weight 106.7 kg 100.4 kg General appearance: PRESENT: no acute distress Eye exam: PRESENT: PERRLA Respiratory exam: PRESENT: clear to auscultation lele Cardiovascular exam: PRESENT: +S1, +S2 Results Laboratory Results: 07/28/19 05:27 08/03/19 05:15 08/03/19 05:15 Sodium 143.8 Potassium 4.9 Chloride 106 Carbon Dioxide 29 Anion Gap 9 BUN 68 H Creatinine 2.42 H Est GFR ( Amer) 24 L Glucose 81 Calcium 10.1 07/25/19 07/26/19 07/26/19 12:38 21:55 21:55 Creatine Kinase < 20 L CK-MB (CK-2) 0.30 Troponin I 0.014 NT-Pro-B Natriuret Pep 8150 H Impressions: Chest X-Ray 07/25/19 13:10 IMPRESSION: Small left pleural effusion. Assessment & Plan - Diagnosis (1) Acute kidney injury Is this a current diagnosis for this admission?: Yes (2) Chronic combined systolic and diastolic CHF (congestive heart failure) Is this a current diagnosis for this admission?: Yes - Time Time Spent with patient: 15-24 minutes Level of Care: IMCU - Plan Summary Plan Summary: Continue treatment
[2019-08-03] MEDS: ATORVASTATIN CALCIUM 20 MG TABLET PO SCH (23:04)
[2019-08-04] MEDS: INSULIN REG, HUMAN 100 UNIT/ML 3 ML VIAL (PYX) SUBCUT SCH ×4 (08:21→22:13)
[2019-08-04] MEDS: FLUCONAZOLE 100 MG TABLET PO SCH (10:05)
[2019-08-04] MEDS: FUROSEMIDE INJ/PF 20 MG/2 ML SDV IV SCH ×2 (10:05→22:12)
[2019-08-04] MEDS: ASCORBIC ACID 500 MG TABLET PO SCH (10:05)
[2019-08-04] MEDS: MECLIZINE HCL 25 MG TABLET PO SCH ×3 (10:05→17:09)
[2019-08-04] MEDS: SUCRALFATE 1 GM TABLET PO SCH ×4 (10:05→22:13)
[2019-08-04] MEDS: CHOLECALCIFEROL (D3) 1,000 UNIT (25 MCG) TABLET PO SCH (10:05)
[2019-08-04] MEDS: GABAPENTIN 300 MG CAPSULE PO SCH ×2 (10:05→22:13)
[2019-08-04] MEDS: MULTIVITAMIN TABLET PO SCH (10:05)
[2019-08-04] MEDS: ENOXAPARIN SODIUM INJ 30 MG/0.3 ML DISP.SYRIN SUBCUT SCH (10:06)
--- NOTE | 2019-08-04 10:24 | RADIOLOGY REPORT (SQ) ---
EXAM DESCRIPTION: CHEST SINGLE VIEW IMAGES COMPLETED DATE/TIME: 08/04/2019 10:04 am REASON FOR STUDY: SOB COMPARISON: 07/25/2019 TECHNIQUE: Single frontal radiographic view of the chest acquired. NUMBER OF VIEWS: One view. LIMITATIONS: None. FINDINGS: LUNGS AND PLEURA: No pneumothorax. Mild interstitial thickening. Bilateral basilar subse gmental atelectasis. Possible small left pleural effusion. MEDIASTINUM AND HILAR STRUCTURES: Stable. HEART AND VASCULAR STRUCTURES: Stable. BONES: No acute findings. HARDWARE: CABG. OTHER: No other significant finding. IMPRESSION: Mild interstitial thickening. Bilateral basilar subsegmental atelectasis. Possible sm all left pleural effusion. TECHNICAL DOCUMENTATION: JOB ID: [id number] 2010 [employer]- All Rights Reserved Reading location - IP/workstation name: [email or web address]
--- NOTE | 2019-08-04 18:48 | PDOC PROGRESS REPORT ---
Subjective Progress Note for:: 08/04/19 Subjective:: Patient with somewhat mild respiratory distress requiring noninvasive positive pressure ventilation, BiPAP Reason For Visit: MIGUEL,UTI,AMS Physical Exam Vital Signs: Temp Pulse Resp BP Pulse Ox 98.0 F 64 12 151/72 H 97 08/04/19 16:16 08/04/19 16:16 08/04/19 16:16 08/04/19 16:16 08/04/19 16:16 Intake & Output 08/03/19 08/04/19 08/05/19 06:59 06:59 06:59 Intake Total 1301 2147 422 Output Total 4250 4495 825 Balance -2949 -2348 -403 Weight 100.4 kg 98.2 kg General appearance: PRESENT: no acute distress Eye exam: PRESENT: PERRLA Respiratory exam: PRESENT: rhonchi Cardiovascular exam: PRESENT: +S1, +S2 GI/Abdominal exam: PRESENT: soft Results Laboratory Results: 07/28/19 05:27 08/03/19 05:15 07/25/19 07/26/19 07/26/19 12:38 21:55 21:55 Creatine Kinase < 20 L CK-MB (CK-2) 0.30 Troponin I 0.014 NT-Pro-B Natriuret Pep 8150 H Impressions: Chest X-Ray 08/04/19 00:00 IMPRESSION: Mild interstitial thickening. Bilateral basilar subsegmental atelectasis. Possible small left pleural effusion. Assessment & Plan - Diagnosis (1) Acute kidney injury Is this a current diagnosis for this admission?: Yes (2) Chronic combined systolic and diastolic CHF (congestive heart failure) Is this a current diagnosis for this admission?: Yes (3) Respiratory distress Is this a current diagnosis for this admission?: Yes Plan: , [place] BiPAP, ABG, CBC, compressive metabolic panel (4) Acute hypoxemic respiratory failure Is this a current diagnosis for this admission?: Yes Plan: Continue BiPAP support (5) Anemia Qualifiers: Anemia type: other cause Other causes of anemia: other cause, not classified Qualified Code(s): D64.89 - Other specified anemias Is this a current diagnosis for this admission?: Yes - Time Time Spent with patient: 25-34 minutes Level of Care: [facility]
[2019-08-04 18:55] LABS: ARTERIAL BLOOD BASE EXCESS 5.9 mmol/L; ARTERIAL BLOOD HCO3 31.6 mmol/L (20-24); ARTERIAL BLOOD O2 SATURATION 93.9 % (94-98); ARTERIAL BLOOD PCO2 53.3 mmHg (35-45); ARTERIAL BLOOD PH 7.39 (7.35-7.45); ARTERIAL BLOOD PO2 71.3 mmHg (80-100); ARTERIAL BLOOD TOTAL CO2 33.2 mmol/L (21-25)
[2019-08-04 18:56] LABS: ARTERIAL BLOOD FIO2 5L
[2019-08-04 19:27] LABS: ABSOLUTE EOSINOPHILS # (AUTO) 0.1 10^3/uL (0.0-0.6); ABSOLUTE LYMPHOCYTES (AUTO) 1.1 10^3/uL (0.5-4.7); ABSOLUTE MONOCYTES (AUTO) 0.5 10^3/uL (0.1-1.4); ABSOLUTE NEUT (AUTO) 2.6 10^3/uL (1.7-8.2); BASOPHILS % (AUTO) 0.5 % (0-2); EOSINOPHILS % (AUTO) 2.1 % (0-6); HEMATOCRIT 24.7 % (36.0-47.0); LYMPHOCYTES % (AUTO) 25.8 % (13-45); MEAN CORPUSCULAR HEMOGLOBIN 30.6 pg (27.0-33.4); MEAN CORPUSCULAR HGB CONC 32.3 g/dL (32.0-36.0); MEAN CORPUSCULAR VOLUME 95 fl (80-97); MONOCYTES % (AUTO) 10.8 % (3-13); PLATELET COUNT 135 10^3/uL (150-450); RED BLOOD COUNT 2.61 10^6/uL (3.72-5.28); RED CELL DISTRIBUTION WIDTH 17.1 % (11.5-14.0); SEGMENTED NEUTROPHILS % (AUTO) 60.8 % (42-78); TOTAL CELLS COUNTED % (AUTO) 100 %; WHITE BLOOD COUNT 4.3 10^3/uL (4.0-10.5)
[2019-08-04 20:04] LABS: ALBUMIN 3.2 g/dL (3.5-5.0); ALKALINE PHOSPHATASE 354 U/L (38-126); ASPARTATE AMINO TRANSFERASE 27 U/L (14-36); BILIRUBIN,DIRECT 0.4 mg/dL (0.0-0.4); BILIRUBIN,TOTAL 1.2 mg/dL (0.2-1.3); BLOOD UREA NITROGEN 55 mg/dL (7-20); CALCIUM 9.5 mg/dL (8.4-10.2); CHLORIDE 104 mmol/L (98-107); GLUCOSE 120 mg/dL (75-110); POTASSIUM 4.4 mmol/L (3.6-5.0); TOTAL PROTEIN 7.1 g/dL (6.3-8.2)
[2019-08-04 20:10] LABS: ANION GAP 6 (5-19); CARBON DIOXIDE 31 mmol/L (22-30)
[2019-08-04] MEDS: ATORVASTATIN CALCIUM 20 MG TABLET PO SCH (22:13)
[2019-08-05] MEDS: INSULIN REG, HUMAN 100 UNIT/ML 3 ML VIAL (PYX) SUBCUT SCH ×4 (08:01→21:31)
[2019-08-05] MEDS: MECLIZINE HCL 25 MG TABLET PO SCH ×3 (09:06→18:07)
[2019-08-05] MEDS: FLUCONAZOLE 100 MG TABLET PO SCH (09:06)
[2019-08-05] MEDS: GABAPENTIN 300 MG CAPSULE PO SCH ×2 (09:06→21:31)
[2019-08-05] MEDS: CHOLECALCIFEROL (D3) 1,000 UNIT (25 MCG) TABLET PO SCH (09:06)
[2019-08-05] MEDS: SUCRALFATE 1 GM TABLET PO SCH ×4 (09:06→21:31)
[2019-08-05] MEDS: FUROSEMIDE INJ/PF 20 MG/2 ML SDV IV SCH ×2 (09:06→21:30)
[2019-08-05] MEDS: MULTIVITAMIN TABLET PO SCH (09:06)
[2019-08-05] MEDS: ASCORBIC ACID 500 MG TABLET PO SCH (09:06)
[2019-08-05] MEDS: ENOXAPARIN SODIUM INJ 30 MG/0.3 ML DISP.SYRIN SUBCUT SCH (09:07)
[2019-08-05 16:37] LABS: A/G RATIO. 0.8 (0.7-1.7); ALBUMIN 3 2.9 g/dL (2.9-4.4); ALPHA-1-GLOBULIN 0.3 g/dL (0.0-0.4); BETA GLOBULIN 1.2 g/dL (0.7-1.3); GAMMA GLOBULINS 1.8 g/dL (0.4-1.8); IMMUNOGLOBULIN A 421 mg/dL (87-352); IMMUNOGLOBULIN G 2139 mg/dL (586-1602); IMMUNOGLOBULIN M 98 mg/dL (26-217); MONOCLONAL-SPIKE Not Observed g/dL (Not Observ); PROTEIN TOTAL SERUM 6.8 g/dL (6.0-8.5)
--- NOTE | 2019-08-05 19:41 | PDOC PROGRESS REPORT ---
Subjective Progress Note for:: 08/05/19 Subjective:: No chest pain or difficulty with breathing. No nausea, vomiting, abdominal pain or diarrhea. No fever or chills. Reason For Visit: MIGUEL,UTI,AMS Physical Exam Vital Signs: Temp Pulse Resp BP Pulse Ox 98.2 F 68 12 157/72 H 96 08/05/19 16:10 08/05/19 16:10 08/05/19 16:10 08/05/19 16:10 08/05/19 16:10 Intake & Output 08/04/19 08/05/19 08/06/19 06:59 06:59 06:59 Intake Total 2147 872 596 Output Total 4495 2300 700 Balance -2718 -1428 -104 Weight 98.2 kg 95.5 kg Physical Exam: General appearance: PRESENT: no acute distress, morbidly obese Head exam: PRESENT: atraumatic, normocephalic Eye exam: PRESENT: conjunctiva pink. ABSENT: pallor, scleral icterus Mouth exam: PRESENT: moist Teeth exam: PRESENT: poor dentition Respiratory exam: PRESENT: clear to auscultation lele, decreased breath sounds - at lung bases Cardiovascular exam: PRESENT: RRR, +S1, +S2. ABSENT: diastolic murmur, rubs, systolic murmur GI/Abdominal exam: PRESENT: normal bowel sounds, soft. ABSENT: distended, tenderness, guarding, mass, organomegaly, rebound : Indwelling Palacio catheter. Extremities exam: PRESENT: chronic pedal edema Neurological exam: PRESENT: alert, awake, oriented to person, oriented to place, oriented to time, oriented to situation, CN II-XII grossly intact. ABSENT: motor sensory deficit Psychiatric exam: PRESENT: appropriate affect, normal mood. ABSENT: homicidal ideation, suicidal ideation Skin exam: PRESENT: dry, warm, other - stage 3 decubitus ulcer left heel region Results Laboratory Results: 08/04/19 19:20 08/04/19 19:20 08/04/19 08/04/19 08/04/19 18:30 19:20 19:20 WBC 4.3 RBC 2.61 L Hgb 8.0 L Hct 24.7 L MCV 95 MCH 30.6 MCHC 32.3 RDW 17.1 H Plt Count 135 L Seg Neutrophils % 60.8 Carbonic Acid 1.60 H HCO3/H2CO3 Ratio 19:1 ABG pH 7.39 ABG pCO2 53.3 H ABG pO2 71.3 L ABG HCO3 31.6 H ABG O2 Saturation 93.9 L ABG Base Excess 5.9 FiO2 5L Sodium 140.7 Potassium 4.4 Chloride 104 Carbon Dioxide 31 H Anion Gap 6 BUN 55 H Creatinine 2.04 H Est GFR ( Amer) 30 L Glucose 120 H Calcium 9.5 Total Bilirubin 1.2 AST 27 Alkaline Phosphatase 354 H Total Protein 7.1 Albumin 3.2 L 07/25/19 07/26/19 07/26/19 12:38 21:55 21:55 Creatine Kinase < 20 L CK-MB (CK-2) 0.30 Troponin I 0.014 NT-Pro-B Natriuret Pep 8150 H Impressions: Chest X-Ray 08/04/19 00:00 IMPRESSION: Mild interstitial thickening. Bilateral basilar subsegmental atelectasis. Possible small left pleural effusion. Assessment & Plan - Diagnosis (1) Acute renal failure Qualifiers: Acute renal failure type: unspecified Qualified Code(s): N17.9 - Acute kidney failure, unspecified Is this a current diagnosis for this admission?: Yes (2) Abnormal urinalysis Is this a current diagnosis for this admission?: Yes (3) Acute metabolic encephalopathy Is this a current diagnosis for this admission?: Yes (4) Abdominal pain, chronic, bilateral lower quadrant Is this a current diagnosis for this admission?: Yes (5) Chronic combined systolic (congestive) and diastolic (congestive) heart failure Is this a current diagnosis for this admission?: Yes (6) Chronic combined systolic and diastolic CHF (congestive heart failure) Is this a current diagnosis for this admission?: Yes (7) Diabetes mellitus type 2 in obese Is this a current diagnosis for this admission?: Yes (8) Hypertension Qualifiers: Hypertension type: essential hypertension Qualified Code(s): I10 - Esse ntial (primary) hypertension Is this a current diagnosis for this admission?: Yes (9) Coronary artery disease Qualifiers: Coronary Disease-Associated Artery/Lesion type: unspecified vessel or lesion type Associated angina: without angina Is this a current diagnosis for this admission?: Yes (10) Hyperlipidemia Qualifiers: Hyperlipidemia type: unspecified Qualified Code(s): E78.5 - Hyperlipidemia, unspecified Is this a current diagnosis for this admission?: Yes (11) PVD (peripheral vascular disease) Is this a current diagnosis for this admission?: Yes (12) Peripheral edema Is this a current diagnosis for this admission?: Yes (13) Vertigo as late effect of cerebrovascular accident (CVA) Is this a current diagnosis for this admission?: Yes (14) Chronic pain syndrome Is this a current diagnosis for this admission?: Yes (15) Chronic use of opiate for therapeutic purpose Is this a current diagnosis for this admission?: Yes (16) [place] cystitis Is this a current diagnosis for this admission?: Yes - Time Time Spent with patient: 25-34 minutes Level of Care: IMCU Medications reviewed and adjusted accordingly: Yes Anticipated discharge: SNF Within: Other - Inpatient Certification Based on my medical assessment, after consideration of the patient's comorbidities, presenting symptoms, or acuity I expect that the services needed warrant INPATIENT care.: Yes I certify that my determination is in accordance with my understanding of Medicare's requirements for reasonable and necessary INPATIENT services [42 CFR 412.3e].: Yes Medical Necessity: Significant Comorbidiites Make Outpatient Treatment Too Risky, Need Close Monitoring Due to Risk of Patient Decompensation, Need For Co ntinuous Telemetry Monitoring, Risk of Complication if Not Cared For in Hospital, Risk of Diagnosis Which Will Require Inpatient Eval/Care/Monitoring Post Hospital Care: D/C or Transfer Summary - Plan Summary Plan Summary: Her renal indices are improving. His Alk. phosphatase is increasing ? etiology, maybe immobility. Add GGT to lab work. Continue current medication management. Possible transfer back to SNF for rehabilitation.
[2019-08-05] MEDS: ATORVASTATIN CALCIUM 20 MG TABLET PO SCH (21:31)
--- NOTE | 2019-08-05 22:29 | PDOC PROGRESS REPORT ---
Subjective Progress Note for:: 08/05/19 Subjective:: Patient is currently doing fine. She denies any shortness of breath nor chest pain and thinks that her swelling is improving. He is making adequate amount of urine output and for the past 24 hours made 2300 mL. She is still on low-dose IV furosemide. She has no other complaints. Reason For Visit: MIGUEL,UTI,AMS Physical Exam Vital Signs: Temp Pulse Resp BP Pulse Ox 97.3 F 64 13 157/71 H 91 L 08/05/19 07:26 08/05/19 07:26 08/05/19 07:26 08/05/19 07:26 08/05/19 07:26 Intake & Output 08/04/19 08/05/19 08/06/19 06:59 06:59 06:59 Intake Total 2147 872 Output Total 4495 2300 Balance -2348 -1428 Weight 98.2 kg 95.5 kg Exam: General appearance: PRESENT: no acute distress, cooperative, well-developed, well-nourished Head exam: PRESENT: atraumatic, normocephalic Eye exam: PRESENT: conjunctiva pale, PERRLA. ABSENT: scleral icterus Neck exam: ABSENT: JVD Respiratory exam: PRESENT: Normal breath sounds. ABSENT: crackles, rales, rhonchi, unlabored, wheezes Cardiovascular exam: PRESENT: Regular rate rhythm -+S1, +S2. Grade 2/6 systolic murmur GI/Abdominal exam: PRESENT: normal bowel sounds, soft. ABSENT: guarding, mass, tenderness Extremities exam: Grade 2 bilateral lower extremity pitting edema Neurological exam: PRESENT: alert, awake, oriented to person, place and time. Skin exam: PRESENT: dry, warm, Cardiovascular exam: PRESENT: +S1, +S2 GI/Abdominal exam: PRESENT: normal bowel sounds, soft. ABSENT: organomegaly, tenderness Results Laboratory Results: 08/04/19 19:20 08/04/19 19:20 08/04/19 08/04/19 08/04/19 18:30 19:20 19:20 WBC 4.3 RBC 2.61 L Hgb 8.0 L Hct 24.7 L MCV 95 MCH 30.6 MCHC 32.3 RDW 17.1 H Plt Count 135 L Seg Neutrophils % 60.8 Carbonic Acid 1.60 H HCO3/H2CO3 Ratio 19:1 ABG pH 7.39 ABG pCO2 53.3 H ABG pO2 71.3 L ABG HCO3 31.6 H ABG O2 Saturation 93.9 L ABG Base Excess 5.9 FiO2 5L Sodium 140.7 Potassium 4.4 Chloride 104 Carbon Dioxide 31 H Anion Gap 6 BUN 55 H Creatinine 2.04 H Est GFR ( Amer) 30 L Glucose 120 H Calcium 9.5 Total Bilirubin 1.2 AST 27 Alkaline Phosphatase 354 H Total Protein 7.1 Albumin 3.2 L 07/25/19 07/26/19 07/26/19 12:38 21:55 21:55 Creatine Kinase < 20 L CK-MB (CK-2) 0.30 Troponin I 0.014 NT-Pro-B Natriuret Pep 8150 H Impressions: Chest X-Ray 08/04/19 00:00 IMPRESSION: Mild interstitial thickening. Bilateral basilar subsegmental atelectasis. Possible small left pleural effusion. Assessment & Plan - Diagnosis (1) Acute kidney injury Is this a current diagnosis for this admission?: Yes Plan: Patient remains to have good urine output. Her kidney function continues to improve. Continue current management. No need of any renal replacement therapy at this time. Continue to monitor kidney function. (2) [place] cystitis Is this a current diagnosis for this admission?: Yes Plan: On fluconazole. 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 I think she would need Retacrit as well so I will give her a dose. (6) Pulmonary hypertension Is this a current diagnosis for this admission?: Yes (7) Diabetes mellitus type 2 in obese Is this a current diagnosis for this admission?: Yes (8) Hypertension Qualifiers: Hypertension type: essential hypertension Qualified Code(s): I10 - Essential (primary) hypertension Is this a current diagnosis for this admission?: Yes - Time Time with patient: 15-25 minutes
[2019-08-06] MEDS ORDERED: EPOETIN ALFA-EPBX 20,000 UNITS (ESRD) in SYRINGE SUBCUT PRN (06:53)
[2019-08-06] MEDS ORDERED: EPOETIN ALFA-EPBX 10,000 UNIT/ML VIAL (RENAL) SUBCUT ONE (07:00)
[2019-08-06] MEDS: INSULIN REG, HUMAN 100 UNIT/ML 3 ML VIAL (PYX) SUBCUT SCH ×4 (07:33→21:51)
[2019-08-06] MEDS: SUCRALFATE 1 GM TABLET PO SCH ×5 (08:11→21:54)
[2019-08-06] MEDS: MECLIZINE HCL 25 MG TABLET PO SCH ×3 (09:10→17:15)
[2019-08-06] MEDS: ASCORBIC ACID 500 MG TABLET PO SCH (09:10)
[2019-08-06] MEDS: MULTIVITAMIN TABLET PO SCH (09:10)
[2019-08-06] MEDS: GABAPENTIN 300 MG CAPSULE PO SCH ×2 (09:10→21:54)
[2019-08-06] MEDS: CHOLECALCIFEROL (D3) 1,000 UNIT (25 MCG) TABLET PO SCH (09:11)
[2019-08-06] MEDS: FLUCONAZOLE 100 MG TABLET PO SCH (09:11)
[2019-08-06] MEDS: FUROSEMIDE INJ/PF 20 MG/2 ML SDV IV SCH ×2 (09:11→21:54)
[2019-08-06] MEDS: ENOXAPARIN SODIUM INJ 30 MG/0.3 ML DISP.SYRIN SUBCUT SCH (09:11)
--- NOTE | 2019-08-06 18:13 | PDOC PROGRESS REPORT ---
Subjective Progress Note for:: 08/06/19 Subjective:: OOB in chair. No chest pain or difficulty with breathing. No nausea, vomiting, abdominal pain or diarrhea. No fever or chills. Reason For Visit: MIGUEL,UTI,AMS Physical Exam Vital Signs: Temp Pulse Resp BP Pulse Ox 98.6 F 69 18 146/64 H 95 08/06/19 15:05 08/06/19 15:05 08/06/19 15:05 08/06/19 15:05 08/06/19 16:00 Intake & Output 08/05/19 08/06/19 08/07/19 06:59 06:59 06:59 Intake Total 190 906 6421 Output Total 2300 2225 1350 Balance -7587 -1702 -731 Weight 95.5 kg 95.4 kg Physical Exam: General appearance: PRESENT: no acute distress, morbidly obese Head exam: PRESENT: atraumatic, normocephalic Eye exam: PRESENT: conjunctiva pink. ABSENT: pallor, scleral icterus Mouth exam: PRESENT: moist Teeth exam: PRESENT: poor dentition Respiratory exam: PRESENT: clear to auscultation lele, decreased breath sounds - at lung bases Cardiovascular exam: PRESENT: RRR, +S1, +S2. ABSENT: diastolic murmur, rubs, systolic murmur GI/Abdominal exam: PRESENT: normal bowel sounds, soft. ABSENT: distended, tenderness, guarding, mass, organomegaly, rebound : Indwelling Palacio catheter. Extremities exam: PRESENT: chronic pedal edema Neurological exam: PRESENT: alert, awake, oriented to person, oriented to place, oriented to time, oriented to situation, CN II-XII grossly intact. ABSENT: motor sensory deficit Psychiatric exam: PRESENT: appropriate affect, normal mood. ABSENT: homicidal ideation, suicidal ideation Skin exam: PRESENT: dry, warm, other - stage 3 decubitus ulcer left heel region Results Laboratory Results: 08/04/19 19:20 08/04/19 19:20 07/31/19 08/05/19 05:15 19:20 GGT 533 H Total Protein 6.8 07/25/19 07/26/19 07/26/19 12:38 21:55 21:55 Creatine Kinase < 20 L CK-MB (CK-2) 0.30 Troponin I 0.014 NT-Pro-B Natriuret Pep 8150 H Impressions: Chest X-Ray 08/04/19 00:00 IMPRESSION: Mild interstitial thickening. Bilateral basilar subsegmental atelectasis. Possible small left pleural effusion. Assessment & Plan - Diagnosis (1) Acute renal failure Qualifiers: Acute renal failure type: unspecified Qualified Code(s): N17.9 - Acute kidney failure, unspecified Is this a current diagnosis for this admission?: Yes (2) Abnormal urinalysis Is this a current diagnosis for this admission?: Yes (3) Acute metabolic encephalopathy Is this a current diagnosis for this admission?: Yes (4) Abdominal pain, chronic, bilateral lower quadrant Is this a current diagnosis for this admission?: Yes (5) Chronic combined systolic (congestive) and diastolic (congestive) heart failure Is this a current diagnosis for this admission?: Yes (6) Chronic combined systolic and diastolic CHF (congestive heart failure) Is this a current diagnosis for this admission?: Yes (7) Diabetes mellitus type 2 in obese Is this a current diagnosis for this admission?: Yes (8) Hypertension Qualifiers: Hypertension type: essential hypertension Qualified Code(s): I10 - Essential (primary) hypertension Is this a current diagnosis for this admission?: Yes (9) Coronary artery disease Qualifiers: Coronary Disease-Associated Artery/Lesion type: unspecified vessel or lesion type Associated angina: without angina Is this a current diagnosis for this admission?: Yes (10) Hyperlipidemia Qualifiers: Hyperlipidemia type: unspecified Qualified Code(s): E78.5 - Hyperlipidemia, unspecified Is this a current diagnosis for this admission?: Yes (11) PVD (peripheral vascular disease) Is this a current diagnosis for this admission?: Yes (12) Peripheral edema Is this a current diagnosis for this admission?: Yes (13) Vertigo as late effect of cerebrovascular accident (CVA) Is this a current diagnosis for this admission?: Yes (14) Chronic pain syndrome Is this a current diagnosis for this admission?: Yes (15) Chronic use of opiate for therapeutic purpose Is this a current diagnosis for this admission?: Yes (16) [place] cystitis Is this a current diagnosis for this admission?: Yes - Time Time Spent with patient: 15-24 minutes Level of Care: IMCU Medications reviewed and adjusted accordingly: Yes Anticipated discharge: SNF Within: Other - Inpatient Certification Based on my medical assessment, after consideration of the patient's comorbidities, presenting symptoms, or acuity I expect that the services needed warrant INPATIENT care.: Yes I certify that my determination is in accordance with my understanding of Medicare's requirements for reasonable and necessary INPATIENT services [42 CFR 412.3e].: Yes Medical Necessity: Significant Comorbidiites Make Outpatient Treatment Too Risky, Need Close Monitoring Due to Risk of Patient Decompensation, Need For Continuous Telemetry Monitoring, Risk of Complication if Not Cared For in Hospital, Risk of Diagnosis Which Will Require Inpatient Eval/Care/Monitoring Post Hospital Care: D/C or Transfer Summary - Plan Summary Plan Summary: Continue current medication management. D/C Palacio catheter. Obtain CBC with diff and CMP.
[2019-08-06 18:52] LABS: ABSOLUTE EOSINOPHILS # (AUTO) 0.2 10^3/uL (0.0-0.6); ABSOLUTE LYMPHOCYTES (AUTO) 0.8 10^3/uL (0.5-4.7); ABSOLUTE MONOCYTES (AUTO) 0.5 10^3/uL (0.1-1.4); ABSOLUTE NEUT (AUTO) 2.5 10^3/uL (1.7-8.2); BASOPHILS % (AUTO) 0.4 % (0-2); EOSINOPHILS % (AUTO) 4.4 % (0-6); HEMATOCRIT 27.3 % (36.0-47.0); HEMOGLOBIN 8.7 g/dL (12.0-15.5); LYMPHOCYTES % (AUTO) 21.2 % (13-45); MEAN CORPUSCULAR HEMOGLOBIN 30.7 pg (27.0-33.4); MEAN CORPUSCULAR HGB CONC 31.8 g/dL (32.0-36.0); MEAN CORPUSCULAR VOLUME 97 fl (80-97); MONOCYTES % (AUTO) 11.7 % (3-13); PLATELET COUNT 185 10^3/uL (150-450); RED BLOOD COUNT 2.82 10^6/uL (3.72-5.28); RED CELL DISTRIBUTION WIDTH 17.8 % (11.5-14.0); SEGMENTED NEUTROPHILS % (AUTO) 62.3 % (42-78); TOTAL CELLS COUNTED % (AUTO) 100 %
[2019-08-06 19:12] LABS: ALBUMIN 3.6 g/dL (3.5-5.0); ALKALINE PHOSPHATASE 400 U/L (38-126); ANION GAP 6 (5-19); ASPARTATE AMINO TRANSFERASE 32 U/L (14-36); BILIRUBIN,DIRECT 0.4 mg/dL (0.0-0.4); BLOOD UREA NITROGEN 49 mg/dL (7-20); CALCIUM 9.6 mg/dL (8.4-10.2); CARBON DIOXIDE 33 mmol/L (22-30); CHLORIDE 102 mmol/L (98-107); GLUCOSE 145 mg/dL (75-110); POTASSIUM 4.6 mmol/L (3.6-5.0); TOTAL PROTEIN 7.6 g/dL (6.3-8.2)
[2019-08-06] MEDS: ATORVASTATIN CALCIUM 20 MG TABLET PO SCH (21:54)
[2019-08-07] MEDS: SUCRALFATE 1 GM TABLET PO SCH ×4 (08:05→21:25)
[2019-08-07] MEDS: INSULIN REG, HUMAN 100 UNIT/ML 3 ML VIAL (PYX) SUBCUT SCH ×4 (08:06→21:26)
[2019-08-07] MEDS: ASCORBIC ACID 500 MG TABLET PO SCH (09:14)
[2019-08-07] MEDS: CHOLECALCIFEROL (D3) 1,000 UNIT (25 MCG) TABLET PO SCH (09:14)
[2019-08-07] MEDS: FUROSEMIDE INJ/PF 20 MG/2 ML SDV IV SCH ×2 (09:14→21:25)
[2019-08-07] MEDS: MULTIVITAMIN TABLET PO SCH (09:14)
[2019-08-07] MEDS: GABAPENTIN 300 MG CAPSULE PO SCH ×2 (09:14→21:26)
[2019-08-07] MEDS: MECLIZINE HCL 25 MG TABLET PO SCH ×3 (09:28→17:06)
[2019-08-07] MEDS: ENOXAPARIN SODIUM INJ 30 MG/0.3 ML DISP.SYRIN SUBCUT SCH (09:30)
--- NOTE | 2019-08-07 18:16 | PDOC PROGRESS REPORT ---
Subjective Progress Note for:: 08/07/19 Subjective:: No chest pain or difficulty with breathing. No fever or chills. No nausea, vomiting, abdominal pain or diarrhea. Reason For Visit: MIGUEL,UTI,AMS Physical Exam Vital Signs: Temp Pulse Resp BP Pulse Ox 97.9 F 73 14 166/74 H 94 08/07/19 07:14 08/07/19 07:14 08/07/19 07:14 08/07/19 07:14 08/07/19 07:14 Intake & Output 08/06/19 08/07/19 08/08/19 06:59 06:59 06:59 Intake Total 836 1065 Output Total 3375 9790 Balance -2339 -4742 Weight 95.4 kg 92.5 kg Physical Exam: General appearance: PRESENT: no acute distress, morbidly obese Head exam: PRESENT: atraumatic, normocephalic Eye exam: PRESENT: conjunctiva pink. ABSENT: pallor, scleral icterus Mouth exam: PRESENT: moist Teeth exam: PRESENT: poor dentition Respiratory exam: PRESENT: clear to auscultation lele, decreased breath sounds - at lung bases Cardiovascular exam: PRESENT: RRR, +S1, +S2. ABSENT: diastolic murmur, rubs, systolic murmur GI/Abdominal exam: PRESENT: normal bowel sounds, soft. ABSENT: distended, tenderness, guarding, mass, organomegaly, rebound : Indwelling Palacio catheter. Extremities exam: PRESENT: chronic pedal edema Neurological exam: PRESENT: alert, awake, oriented to person, oriented to place, oriented to time, oriented to situation, CN II-XII grossly intact. ABSENT: motor sensory deficit Psychiatric exam: PRESENT: appropriate affect, normal mood. ABSENT: homicidal ideation, suicidal ideation Skin exam: PRESENT: dry, warm, other - stage 3 decubitus ulcer left heel region Results Laboratory Results: 08/06/19 18:34 08/06/19 18:34 08/06/19 08/06/19 18:34 18:34 WBC 4.0 RBC 2.82 L Hgb 8.7 L Hct 27.3 L MCV 97 MCH 30.7 MCHC 31.8 L RDW 17.8 H Plt Count 185 Seg Neutrophils % 62.3 Sodium 140.6 Potassium 4.6 Chloride 102 Carbon Dioxide 33 H Anion Gap 6 BUN 49 H Creatinine 1.75 H Est GFR ( Amer) 35 L Glucose 145 H Calcium 9.6 Total Bilirubin 1.0 AST 32 Alkaline Phosphatase 400 H Total Protein 7.6 Albumin 3.6 07/25/19 07/26/19 07/26/19 12:38 21:55 21:55 Creatine Kinase < 20 L CK-MB (CK-2) 0.30 Troponin I 0.014 NT-Pro-B Natriuret Pep 8150 H Impressions: Chest X-Ray 08/04/19 00:00 IMPRESSION: Mild interstitial thickening. Bilateral basilar subsegmental atelectasis. Possible small left pleural effusion. Assessment & Plan - Diagnosis (1) Acute renal failure Qualifiers: Acute renal failure type: unspecified Qualified Code(s): N17.9 - Acute kidney failure, unspecified Is this a current diagnosis for this admission?: Yes (2) Abnormal urinalysis Is this a current diagnosis for this admission?: Yes (3) Acute metabolic encephalopathy Is this a current diagnosis for this admission?: Yes (4) Abdominal pain, chronic, bilateral lower quadrant Is this a current diagnosis for this admission?: Yes (5) Chronic combined systolic (congestive) and diastolic (congestive) heart failure Is this a current diagnosis for this admission?: Yes (6) Chronic combined systolic and diastolic CHF (congestive heart failure) Is this a current diagnosis for this admission?: Yes (7) Diabetes mellitus type 2 in obese Is this a current diagnosis for this admission?: Yes (8) Hypertension Qualifiers: Hypertension type: essential hypertension Qualified Code(s): I10 - Essential (primary) hypertension Is this a current diagnosis for this admission?: Yes (9) Coronary artery disease Qualifiers: Coronary Disease-Associated Artery/Lesion type: unspecified vessel or lesion type Associated angina: without angina Is this a current diagnosis for this admission?: Yes (10) Hyperlipidemia Qualifiers: Hyperlipidemia type: unspecified Qualified Code(s): E78.5 - Hyperlipidemia, unspecified Is this a current diagnosis for this admission?: Yes (11) PVD (peripheral vascular disease) Is this a current diagnosis for this admission?: Yes (12) Peripheral edema Is this a current diagnosis for this admission?: Yes (13) Vertigo as late effect of cerebrovascular accident (CVA) Is this a current diagnosis for this admission?: Yes (14) Chronic pain syndrome Is this a current diagnosis for this admission?: Yes (15) Chronic use of opiate for therapeutic purpose Is this a current diagnosis for this admission?: Yes (16) [place] cystitis Is this a current diagnosis for this admission?: Yes - Time Time Spent with patient: 25-34 minutes Level of Care: IMCU Medications reviewed and adjusted accordingly: Yes Anticipated discharge: SNF Within: Other - Inpatient Certification Based on my medical assessment, after consideration of the patient's comorbidities, presenting symptoms, or acuity I expect that the services needed warrant INPATIENT care.: Yes I certify that my determination is in accordance with my understanding of Medicare's requirements for reasonable and necessary INPATIENT services [42 CFR 412.3e].: Yes Medical Necessity: Significant Comorbidiites Make Outpatient Treatment Too Risky, Need Close Monitoring Due to Risk of Patient Decompensation, Need For Continuous Telemetry Monitoring, Risk of Complication if Not Cared For in Hospital, Risk of Diagnosis Which Will Require Inpatient Eval/Care/Monitoring Post Hospital Care: D/C or Transfer Summary - Plan Summary Plan Summary: Improving renal indices and hemoglobin level. Continue current medication management. D/C Palacio cath. 18:14 pm Tolerating Palacio discontinuation and OOB to commode transfer without any significant difficulty. Agreed with transfer to SNF in AM.
[2019-08-07] MEDS: ATORVASTATIN CALCIUM 20 MG TABLET PO SCH (21:26)
[2019-08-08] MEDS: INSULIN REG, HUMAN 100 UNIT/ML 3 ML VIAL (PYX) SUBCUT SCH ×2 (08:06→11:45)
[2019-08-08] MEDS: CHOLECALCIFEROL (D3) 1,000 UNIT (25 MCG) TABLET PO SCH (10:22)
[2019-08-08] MEDS: FUROSEMIDE INJ/PF 20 MG/2 ML SDV IV SCH (10:22)
[2019-08-08] MEDS: ENOXAPARIN SODIUM INJ 30 MG/0.3 ML DISP.SYRIN SUBCUT SCH (10:22)
[2019-08-08] MEDS: MULTIVITAMIN TABLET PO SCH (10:22)
[2019-08-08] MEDS: GABAPENTIN 300 MG CAPSULE PO SCH (10:22)
[2019-08-08] MEDS: ASCORBIC ACID 500 MG TABLET PO SCH (10:22)
[2019-08-08] MEDS: SUCRALFATE 1 GM TABLET PO SCH ×2 (10:22→11:45)
[2019-08-08] MEDS: MECLIZINE HCL 25 MG TABLET PO SCH ×2 (10:22→14:42)
[2019-08-08 12:27] VITALS: BP 155/66
--- NOTE | 2019-08-08 13:22 | PDOC TRANSFER SUMMARY ---
Impression - Admit/DC Date/PCP Admission Date/Primary Care Provider: 07/25/19 17:56 RENAN LAZAR Discharge Date: 08/08/19 - Discharge Diagnosis (1) Acute renal failure Is this a current diagnosis for this admission?: Yes (2) Abnormal urinalysis Is this a current diagnosis for this admission?: Yes (3) Acute metabolic encephalopathy Is this a current diagnosis for this admission?: Yes (4) Abdominal pain, chronic, bilateral lower quadrant Is this a current diagnosis for this admission?: Yes (5) Chronic combined systolic (congestive) and diastolic (congestive) heart failure Is this a current diagnosis for this admission?: Yes (6) Chronic combined systolic and diastolic CHF (congestive heart failure) Is this a current diagnosis for this admission?: Yes (7) Diabetes mellitus type 2 in obese Is this a current diagnosis for this admission?: Yes (8) Hypertension Is this a current diagnosis for this admission?: Yes (9) Coronary artery disease Is this a current diagnosis for this admission?: Yes (10) Hyperlipidemia Is this a current diagnosis for this admission?: Yes (11) PVD (peripheral vascular disease) Is this a current diagnosis for this admission?: Yes (12) Peripheral edema Is this a current diagnosis for this admission?: Yes (13) Vertigo as late effect of cerebrovascular accident (CVA) Is this a current diagnosis for this admission?: Yes (14) Chronic pain syndrome Is this a current diagnosis for this admission?: Yes (15) Chronic use of opiate for therapeutic purpose Is this a current diagnosis for this admission?: Yes (16) [place] cystitis Is this a current diagnosis for this admission?: Yes - Assessment Summary: She was admitted for acute renal injury, hyperkalemia and hypoglycemia related altered mental status. Also, her initial evaluation did revealed possible UTI. She was management with IV fluid support, treated for hyperkalemia, and eventually for yeast cystitis. She was seen in consultation by Dr. Alex Valladares, support specialist. She was off most of her anti hypertensive medication during this hospitalization but will be reintroduced gradually if her blood pressure persistently remain above 130/80 mmHg. she will be discharged back to SNF for short term rehabilitation. She will follow up with Dr. Alex Valladares and myself in the office as instructed upon discharge. - Additional Information Resuscitation Status: Full Code Discharge Diet: Cardiac, Diabetic Discharge Activity: Activity As Tolerated, Slowly Increase Activity, Supervised Activity Referrals: RENAN LAZAR MD [Primary Care Provider] - Follow up as needed (Call office for appointment before discharge from the facility) Moo VALLADARES MD [ACTIVE STAFF] - Prescriptions: Oxycodone HCl/Acetaminophen [Percocet 5-325 mg Tablet] 1 tab PO TIDP PRN #10 tablet PRN Reason: Ondansetron [Zofran Odt 4 mg Tablet] 1 tab PO Q6HP PRN #15 tab.rapdis PRN Reason: For Nausea/Vomiting Home Medications: Amlodipine Besylate [Norvasc 10 mg Tablet] 10 mg PO DAILY 11/30/18 Ascorbic Acid [Vitamin C 500 mg Tablet] 500 mg PO DAILY 11/30/18 Atorvastatin Calcium [Lipitor 20 mg Tablet] 20 mg PO QHS 11/30/18 Docusate Sodium [Colace 100 mg Capsule] 100 mg PO BIDP PRN 11/30/18 Ferrous Sulfate [Feosol 325 mg Tablet] 325 mg PO DAILY 11/30/18 Gabapentin [Neurontin 300 mg Capsule] 300 mg PO Q8 01/06/19 Insulin Degludec [Tresiba Flextouch U-100] 30 unit SQ DAILY 01/06/19 Escitalopram Oxalate [Lexapro 10 mg Tablet] 10 mg PO QHS #30 tablet 03/01/19 Carvedilol [Coreg 12.5 mg Tablet] 12.5 mg PO Q12 04/13/19 Cholecalciferol (Vitamin D3) [Vitamin D3 1000 Unit Tablet] 2,000 unit PO DAILY 04/13/19 Dicyclomine HCl [Bentyl 10 mg Capsule] 10 mg PO DAILY PRN 04/13/19 Famotidine [Pepcid] 20 mg PO BID 04/13/19 Hydralazine HCl 100 mg PO Q8 04/13/19 Ipratropium/Albuterol Sulfate [Duoneb 3 ml Ampul] 3 ml NEB RTQ6HP PRN 30 Days #60 vial.neb 04/20/19 Multivit,Tx with Iron,Minerals [Thera-M] 1 each PO DAILY 05/08/19 Sucralfate [Carafate 1 gm Tablet] 1 gm PO ACHS 05/08/19 Acetaminophen [Acetaminophen Extra Strength] 500 mg PO DAILYP PRN 07/01/19 Meclizine HCl [Verticalm] 12.5 mg PO TID #45 tablet 07/19/19 Omeprazole 20 mg PO DAILY 07/25/19 Ondansetron [Zofran Odt 4 mg Tablet] 1 tab PO Q6HP PRN #15 tab.rapdis 07/25/19 Oxycodone HCl/Acetaminophen [Percocet 5-325 mg Tablet] 1 tab PO TIDP PRN #10 tablet 07/25/19 History of Present Illiness History of Present Illness: LEEANN FUNEZ is a 64 year old female patient known to my practice who was recently transferred from the hospital to the SNF for short term rehabilitation following admission for acute renal failure and hyperkalemia. She was initially managed in the ICU with significant improvement even following a return due to altered mental status during that hospitalization. She was returned to the ED today with complaint of leg swelling as per accompanying nursing note. In the ED she reported left arm and left leg pain. Her initial evaluation did revealed drowsiness that limit her contribution to her medical intake. She was found hypoglycemic necessitating administration of resuscitative measures. Laboratory assessment revealed worsening renal indices and urinalysis suggestive of possible UTI. Her NT-Pro BNP is lower than her last inpatient value. At the time of my bedside evaluation, she was fully awake and reported no food intake all day and probably contributed to her hypoglycemia and change in mental status. Her morbidities are as listed below. Hospital Course Hospital Course: She was admitted for acute renal injury, hyperkalemia and hypoglycemia related altered mental status. Also, her initial evaluation did revealed possible UTI. She was management with IV fluid support, treated for hyperkalemia, and eventually for yeast cystitis. She was seen in consultation by Dr. Alex Valladares, support specialist. She was off most of her anti hypertensive medication during this hospitalization but will be reintroduced gradually if her blood pressure persistently remain above 130/80 mmHg. she will be discharged back to SNF for short term rehabilitation. She will follow up with Dr. Alex Valladares and myself in the office as instructed upon discharge. Physical Exam Vital Signs: Temp Pulse Resp BP Pulse Ox 97.4 F 67 18 155/66 H 91 L 08/08/19 10:59 08/08/19 10:59 08/08/19 10:59 08/08/19 10:59 08/08/19 10:59 Intake & Output 08/07/19 08/08/19 08/09/19 06:59 06:59 06:59 Intake Total 1063 179 480 Output Total 4203 525 Balance -3485 -75 480 Weight 92.5 kg 89.5 kg General appearance: PRESENT: no acute distress, morbidly obese, OOB in chair Head exam: PRESENT: atraumatic, normocephalic Eye exam: PRESENT: conjunctiva pink. ABSENT: pallor, scleral icterus Mouth exam: PRESENT: moist Teeth exam: PRESENT: poor dentition Respiratory exam: PRESENT: clear to auscultation lele Cardiovascular exam: PRESENT: RRR, +S1, +S2. ABSENT: diastolic murmur, rubs, systolic murmur GI/Abdominal exam: PRESENT: normal bowel sounds, soft. ABSENT: distended, tenderness, guarding, mass, organomegaly, rebound Extremities exam: PRESENT: chronic pedal edema Neurological exam: PRESENT: alert, awake, oriented to person, oriented to place, oriented to time, oriented to situation, CN II-XII grossly intact. ABSENT: motor sensory deficit Psychiatric exam: PRESENT: appropriate affect, normal mood. ABSENT: homicidal ideation, suicidal ideation Skin exam: PRESENT: dry, warm, other - stage 3 decubitus ulcer left heel region Results Laboratory Results: WBC 4.0 10^3/uL (4.0-10.5) 08/06/19 18:34 RBC 2.82 10^6/uL (3.72-5.28) L 08/06/19 18:34 Hgb 8.7 g/dL (12.0-15.5) L 08/06/19 18:34 Hct 27.3 % (36.0-47.0) L 08/06/19 18:34 MCV 97 fl (80-97) 08/06/19 18:34 MCH 30.7 pg (27.0-33.4) 08/06/19 18:34 MCHC 31.8 g/dL (32.0-36.0) L 08/06/19 18:34 RDW 17.8 % (11.5-14.0) H 08/06/19 18:34 Plt Count 185 10^3/uL (150-450) 08/06/19 18:34 Lymph % (Auto) 21.2 % (13-45) 08/06/19 18:34 [place] % (Auto) 11.7 % (3-13) 08/06/19 18:34 Eos % (Auto) 4.4 % (0-6) 08/06/19 18:34 Baso % (Auto) 0.4 % (0-2) 08/06/19 18:34 Reticulocyte # 0.014 10^6/uL (0.028-0.122) L 07/31/19 05:15 Absolute Neuts (auto) 2.5 10^3/uL (1.7-8.2) 08/06/19 18:34 Absolute Lymphs (auto) 0.8 10^3/uL (0.5-4.7) 08/06/19 18:34 Absolute Monos (auto) 0.5 10^3/uL (0.1-1.4) 08/06/19 18:34 Absolute Eos (auto) 0.2 10^3/uL (0.0-0.6) 08/06/19 18:34 Absolute Basos (auto) 0.0 10^3/uL (0.0-0.2) 08/06/19 18:34 Seg Neutrophils % 62.3 % (42-78) 08/06/19 18:34 Platelet Estimate Cancelled 07/25/19 12:38 Retic Count (auto) 0.54 % (0.66-2.85) L 07/31/19 05:15 Carbonic Acid 1.60 mmol/L (1.05-1.35) H 08/04/19 18:30 HCO3/H2CO3 Ratio 19:1 08/04/19 18:30 ABG pH 7.39 (7.35-7.45) 08/04/19 18:30 ABG pCO2 53.3 mmHg (35-45) H 08/04/19 18:30 ABG pO2 71.3 mmHg (80-100) L 08/04/19 18:30 ABG HCO3 31.6 mmol/L (20-24) H 08/04/19 18:30 ABG Total CO2 33.2 mmol/L (21-25) H 08/04/19 18:30 ABG O2 Saturation 93.9 % (94-98) L 08/04/19 18:30 ABG Base Excess 5.9 mmol/L 08/04/19 18:30 FiO2 5L 08/04/19 18:30 Sodium 140.6 mmol/L (137-145) 08/06/19 18:34 Potassium 4.6 mmol/L (3.6-5.0) 08/06/19 18:34 Chloride 102 mmol/L (98-107) 08/06/19 18:34 Carbon Dioxide 33 mmol/L (22-30) H 08/06/19 18:34 Anion Gap 6 (5-19) 08/06/19 18:34 BUN 49 mg/dL (7-20) H 08/06/19 18:34 Creatinine 1.75 mg/dL (0.52-1.25) H 08/06/19 18:34 Est GFR ( Amer) 35 (>60) L 08/06/19 18:34 Est GFR (Non-Af Amer) Cancelled 07/25/19 12:38 Est GFR (MDRD) Non-Af 29 (>60) L 08/06/19 18:34 Glucose 145 mg/dL (75-110) H 08/06/19 18:34 POC Glucose 126 mg/dL (70-110) H 08/08/19 11:00 Lactic Acid 0.7 mmol/L (0.7-2.1) 07/25/19 12:38 Calcium 9.6 mg/dL (8.4-10.2) 08/06/19 18:34 Magnesium 2.3 mg/dL (1.6-2.3) 07/26/19 21:55 Iron 34.1 ug/dL (37-170) L 07/31/19 05:15 TIBC 246 ug/dL (250-450) L 07/31/19 05:15 % Saturation 14 % 07/31/19 05:15 Transferrin 178.00 mg/dL (206.00-381.00) L 07/31/19 05:15 Ferritin 170.00 ng/mL (11.1-264.0) 07/31/19 05:15 Total Bilirubin 1.0 mg/dL (0.2-1.3) 08/06/19 18:34 Direct Bilirubin 0.4 mg/dL (0.0-0.4) 08/06/19 18:34 Neonat Total Bilirubin Not Reportable 08/06/19 18:34 Neonat Direct Bilirubin Not Reportable 08/06/19 18:34 Neonat Indirect Bili Not Reportable 08/06/19 18:34 GGT 533 U/L (8-78) H 08/05/19 19:20 AST 32 U/L (14-36) 08/06/19 18:34 ALT 23 U/L (<35) 08/06/19 18:34 Alkaline Phosphatase 400 U/L (38-126) H 08/06/19 18:34 Creatine Kinase < 20 U/L (30-135) L 07/26/19 21:55 CK-MB (CK-2) 0.30 ng/mL (<4.55) 07/26/19 21:55 Troponin I 0.014 ng/mL 07/26/19 21:55 NT-Pro-B Natriuret Pep 8150 pg/mL (<125) H 07/25/19 12:38 Total Protein 7.6 g/dL (6.3-8.2) 08/06/19 18:34 Albumin 3.6 g/dL (3.5-5.0) 08/06/19 18:34 Globulin 3.9 g/dL (2.2-3.9) 07/31/19 05:15 Alb/Glob Ratio Alt Meth 0.8 (0.7-1.7) 07/31/19 05:15 Aetgs-9-Gwmlcrpau 0.3 g/dL (0.0-0.4) 07/31/19 05:15 Tbqub-3-Fwbuibevs 0.6 g/dL (0.4-1.0) 07/31/19 05:15 Beta Globulins 1.2 g/dL (0.7-1.3) 07/31/19 05:15 Gamma Globulins 1.8 g/dL (0.4-1.8) 07/31/19 05:15 M-Tong Not Observed g/dL (Not Observ) 07/31/19 05:15 EGFR Cancelled 07/25/19 12:38 Vitamin B12 587.0 pg/mL (239-931) 07/31/19 05:15 Folate 17.30 ng/mL (>2.76) 07/31/19 05:15 Immunoglobulin A 421 mg/dL (87-352) H 07/31/19 05:15 Immunoglobulin G 2139 mg/dL (586-1602) H 07/31/19 05:15 Immunoglobulin M 98 mg/dL (26-217) 07/31/19 05:15 Serum Immunofixation Comment (.) 07/31/19 05:15 Immunofixation Note Comment (.) 07/31/19 05:15 Urine Color YELLOW 07/25/19 13:15 Urine Appearance CLOUDY 07/25/19 13:15 Urine pH 5.0 (5.0-9.0) 07/25/19 13:15 Ur Specific [place] 1.016 07/25/19 13:15 Urine Protein 100 mg/dL (NEGATIVE) H 07/25/19 13:15 Urine Glucose (UA) NEGATIVE mg/dL (NEGATIVE) 07/25/19 13:15 Urine Ketones NEGATIVE mg/dL (NEGATIVE) 07/25/19 13:15 Urine Blood NEGATIVE (NEGATIVE) 07/25/19 13:15 Urine Nitrite NEGATIVE (NEGATIVE) 07/25/19 13:15 Urine Bilirubin NEGATIVE (NEGATIVE) 07/25/19 13:15 Urine Urobilinogen 2.0 mg/dL (<2.0) H 07/25/19 13:15 Ur Leukocyte Esterase MODERATE (NEGATIVE) H 07/25/19 13:15 Urine WBC (Auto) 38 /HPF 07/25/19 13:15 Urine RBC (Auto) 39 /HPF 07/25/19 13:15 U Hyaline Cast (Auto) 343 /LPF 07/25/19 13:15 Urine Bacteria (Auto) TRACE /HPF 07/25/19 13:15 Urine WBC Clumps FEW /HPF 07/25/19 13:15 Squamous Epi Cells Auto 10 /HPF 07/25/19 13:15 Urine Mucus (Auto) RARE /LPF 07/25/19 13:15 Urine Yeast (Budding) PRESENT /HPF 07/25/19 13:15 Urine Ascorbic Acid 40 (NEGATIVE) H 07/25/19 13:15 Urine Opiates Screen NEGATIVE 07/25/19 13:15 Urine Methadone Screen NEGATIVE 07/25/19 13:15 Ur Barbiturates Screen NEGATIVE 07/25/19 13:15 Ur Phencyclidine Scrn NEGATIVE 07/25/19 13:15 Ur Amphetamines Screen NEGATIVE 07/25/19 13:15 U Benzodiazepines Scrn NEGATIVE 07/25/19 13:15 Urine Cocaine Screen NEGATIVE 07/25/19 13:15 U Marijuana (THC) Screen NEGATIVE 07/25/19 13:15 Serum Alcohol < 10 mg/dL (NONE DETECTED) 07/25/19 14:51 Albumin (YOAN) 2.9 g/dL (2.9-4.4) 07/31/19 05:15 Slides for Path Review Cancelled 07/25/19 12:38 07/25/19 07/26/19 12:38 21:55 CK-MB (CK-2) 0.30 Troponin I 0.014 NT-Pro-B Natriuret Pep 8150 H Impressions: Chest X-Ray 07/25/19 00:00 IMPRESSION: Improved aeration of the right lung base. However, there is a persistent small left pleural effusion with left basilar consolidation which could indicate atelectasis, pneumonia, or edema. Similar findings about the right suprahilar region. Recommend follow-up to clearing. copyright 2011 [employer]- All Rights Reserved Chest X-Ray 07/25/19 13:10 IMPRESSION: Small left pleural effusion. Chest X-Ray 08/04/19 00:00 IMPRESSION: Mild interstitial thickening. Bilateral basilar subsegmental atelectasis. Possible small left pleural effusion. Plan Health Concerns: Compliance with dietary and fluid restriction as well and medication compliance. Plan of Treatment: Close monitoring upon discharge back to the community. She will benefit from visiting nurse and PT services upon discharge. Goals: Reduce readmission risk. Time Spent: Greater than 30 Minutes Stroke Is this a Stroke Patient?: No Acute Heart Failure - Is this a Heart Failure Patient?: No
== END 2019-08-08 15:10 | DRG 682 ==
LOC: ER 12:13 → EH 17:56 → 3W 19:21
PROVIDERS: ADMIT Internal Medicine Geriatric Medicine; ATTEND Internal Medicine Geriatric Medicine
PROC: 5A09557 Assistance with Respiratory Ventilation, Greater than 96 Consecutive Hours, Continuous Positive Airway Pressure (ICD-10-PCS; principal; 2019-07-27)
DX: N17.9 Acute kidney failure, unspecified (principal); L89.623 Pressure ulcer of left heel, stage 3; G93.41 Metabolic encephalopathy; J96.01 Acute respiratory failure with hypoxia; I50.42 Chronic combined systolic (congestive) and diastolic (congestive) heart failure; B37.41 Candidal cystitis and urethritis; Z68.41 Body mass index [BMI] 40.0-44.9, adult; I25.10 Atherosclerotic heart disease of native coronary artery without angina pectoris; I25.2 Old myocardial infarction; I11.0 Hypertensive heart disease with heart failure; E11.51 Type 2 diabetes mellitus with diabetic peripheral angiopathy without gangrene; E78.5 Hyperlipidemia, unspecified; R42 Dizziness and giddiness; G89.4 Chronic pain syndrome; R10.32 Left lower quadrant pain; R10.31 Right lower quadrant pain; D50.9 Iron deficiency anemia, unspecified; E66.01 Morbid (severe) obesity due to excess calories; I27.20 Pulmonary hypertension, unspecified; E11.21 Type 2 diabetes mellitus with diabetic nephropathy; Z95.1 Presence of aortocoronary bypass graft; Z79.4 Long term (current) use of insulin; Z88.8 Allergy status to other drugs, medicaments and biological substances; I69.398 Other sequelae of cerebral infarction; Z79.899 Other long term (current) drug therapy; Z79.891 Long term (current) use of opiate analgesic
CPT/HCPCS: 36415; 71045; 71046; 80048; 80053; 80307; 81001; 82550; 82553; 82607; 82728; 82746; 82803; 82962; 82977; 83540; 83550; 83605; 83735; 83880; 84466; 84484; 85025; 85027; 85045; 86320; 87086; 93005; 93010; 94640; 94660; 96374; 99285; J0610; J0696; J1439; J1650; J1815; J1940; J2405; J3490; J7050; J7620

== ENCOUNTER 2019-08-19 01:26 | Inpatient (IN) | payer MEDICARE, MEDICAID ==
[2019-08-19 03:12] LABS: ABSOLUTE EOSINOPHILS # (AUTO) 0.1 10^3/uL (0.0-0.6); ABSOLUTE LYMPHOCYTES (AUTO) 0.9 10^3/uL (0.5-4.7); ABSOLUTE MONOCYTES (AUTO) 0.7 10^3/uL (0.1-1.4); ABSOLUTE NEUT (AUTO) 2.8 10^3/uL (1.7-8.2); BASOPHILS % (AUTO) 0.8 % (0-2); EOSINOPHILS % (AUTO) 1.3 % (0-6); HEMATOCRIT 24.2 % (36.0-47.0); LYMPHOCYTES % (AUTO) 20.1 % (13-45); MEAN CORPUSCULAR HEMOGLOBIN 30.7 pg (27.0-33.4); MEAN CORPUSCULAR HGB CONC 32.2 g/dL (32.0-36.0); MEAN CORPUSCULAR VOLUME 96 fl (80-97); MONOCYTES % (AUTO) 15.3 % (3-13); PLATELET COUNT 191 10^3/uL (150-450); RED BLOOD COUNT 2.53 10^6/uL (3.72-5.28); RED CELL DISTRIBUTION WIDTH 16.9 % (11.5-14.0); SEGMENTED NEUTROPHILS % (AUTO) 62.5 % (42-78); TOTAL CELLS COUNTED % (AUTO) 100 %; WHITE BLOOD COUNT 4.4 10^3/uL (4.0-10.5)
[2019-08-19 03:14] LABS: HEMOGLOBIN 7.8 g/dL (12.0-15.5)
[2019-08-19 04:22] LABS: ALBUMIN 3.8 g/dL (3.5-5.0); ALKALINE PHOSPHATASE 469 U/L (38-126); ANION GAP 9 (5-19); ASPARTATE AMINO TRANSFERASE 52 U/L (14-36); BILIRUBIN,DIRECT 0.6 mg/dL (0.0-0.4); BILIRUBIN,TOTAL 0.8 mg/dL (0.2-1.3); BLOOD UREA NITROGEN 93 mg/dL (7-20); CALCIUM 9.4 mg/dL (8.4-10.2); CARBON DIOXIDE 26 mmol/L (22-30); CHLORIDE 107 mmol/L (98-107); GLUCOSE 112 mg/dL (75-110); POTASSIUM 5.8 mmol/L (3.6-5.0); TOTAL PROTEIN 8.2 g/dL (6.3-8.2)
[2019-08-19 04:27] LABS: ALCOHOL < 10 mg/dL (NONE DETECTED)
[2019-08-19] MEDS ORDERED: SODIUM BICARBONATE 8.4% INJ 50 MEQ/50 ML DISP.SYRIN IV ONE (06:29)
[2019-08-19] MEDS ORDERED: CALCIUM GLUCONATE 1000 MG/10 ML INJ IV ONE (06:29)
[2019-08-19] MEDS ORDERED: SODIUM POLYSTYRENE SULFONATE 15 GM/60 ML PO ONE (06:29)
[2019-08-19] MEDS ORDERED: INSULIN REG, HUMAN 100 UNIT/ML 3 ML VIAL (PYX) IV ONE (06:30)
[2019-08-19] MEDS ORDERED: DEXTROSE 50%-WATER 25 GM/50 ML DISP.SYRIN IV ONE (06:30)
--- NOTE | 2019-08-19 07:06 | ER Document Report ---
Entered by LATHA MEDRANO SCRIBE 08/19/19 0617 Acting as scribe for:SHA GRIMES MD ED General - General Chief Complaint: Abnormal Lab Results Stated Complaint: ABNORMAL LABS Time Seen by Provider: 08/19/19 06:15 Mode of Arrival: Ambulatory Information source: Patient Notes: This 64 year old female patient presents to the emergency department today with complaints of a potassium of 5.9 during routine outpatient labs. Patient resides at [facility] and she has no complaints. Patient is at baseline per [facility] records. TRAVEL OUTSIDE OF THE [place] IN LAST 30 DAYS: No - Related Data Allergies/Adverse Reactions: pregabalin [From Lyrica] Allergy (Intermediate, Verified 07/03/19 07:18) RASH duloxetine Allergy (Verified 07/03/19 07:18) Past Medical History - General Information source: Patient - Social History Smoking Status: Never Smoker Cigarette use (# per day): No Frequency of alcohol use: None Drug Abuse: None Lives with: Family Family History: CAD, Hyperlipidemia, Hypertension, Reviewed & Not Pertinent Patient has homicidal ideation: No - Past Medical History Cardiac Medical History: Reports: Hx Congestive Heart Failure, Hx Coronary Artery Disease, Hx Heart Attack, Hx Hypercholesterolemia, Hx Hypertension, Hx Peripheral Vascular Disease Pulmonary Medical History: Reports: Hx Bronchitis Neurological Medical History: Reports: Hx Cerebrovascular Accident - 2007 Endocrine Medical History: Reports: Hx Diabetes Mellitus Type 1, Hx Diabetes Mellitus Type 2 Renal/ Medical History: Malignancy Medical History: GI Medical History: Reports: Hx Diverticulitis - diverticulosis Musculoskeletal Medical History: Psychiatric Medical History: Traumatic Medical History: Infectious Medical History: Past Surgical History: Reports: Hx Cardiac Surgery - quad bypass, Hx Coronary Artery Bypass Graft - May 16 2011, Hx Tonsillectomy, Hx Vascular Surgery - Immunizations Immunizations up to date: No Hx Diphtheria, Pertussis, Tetanus Vaccination: Yes Hx Pneumococcal Vaccination: 11/20/10 Review of Systems - Review of Systems Constitutional: See HPI, Other - abnormal outpatient labs, potassium of 5.9 EENT: No symptoms reported Cardiovascular: No symptoms reported Respiratory: No symptoms reported Gastrointestinal: No symptoms reported Genitourinary: No symptoms reported Female Genitourinary: No symptoms reported Musculoskeletal: No symptoms reported Skin: No symptoms reported Hematologic/Lymphatic: No symptoms reported Neurological/Psychological: No symptoms reported -: Yes All other systems reviewed and negative Physical Exam - Vital signs Vitals: BP 123/82 08/19/19 01:46 - Notes Notes: Physical Exam: General: Alert, appears at baseline per H records. HEENT: Normocephalic. Atraumatic. PERRL. Extraocular movements intact. Oropharynx clear. Neck: Supple. Non-tender. Respiratory: No respiratory distress. Clear and equal breath sounds bilaterally. Cardiovascular: Regular rate and rhythm. Abdominal: Normal Inspection. Non-tender. No distension. Normal Bowel Sounds. Back: No gross abnormalities. Extremities: Moves all four extremities. Upper extremities: Normal inspection. Normal ROM. Lower extremities: 2+ edema to left lower extremity. Left lower extremity skin is thickened and dark, bandage on left foot. Neurological: Normal cognition. AAOx4. Normal speech. Psychological: Normal affect. Normal Mood. Skin: see lower extremity exam Course - Re-evaluation Re-evalutation: 08/19/19 10:02 The patient's urinalysis does suggest urinary tract infection. Reviewing prior records shows several urine cultures that grew [place] species, so antibiotics will not be started at this time. - Vital Signs Vital signs: Temp Pulse Resp BP Pulse Ox 98.3 F 11 L 111/63 100 08/19/19 01:51 08/19/19 15:02 08/19/19 15:02 08/19/19 15:02 - Laboratory Result Diagrams: 08/19/19 02:58 08/19/19 03:49 Laboratory results interpreted by me: 08/19/19 08/19/19 08/19/19 02:58 03:49 03:49 RBC 2.53 L Hgb 7.8 L Hct 24.2 L RDW 16.9 H [place] % (Auto) 15.3 H Potassium 5.8 H BUN 93 H Creatinine 4.85 H Est GFR ( Amer) 11 L Est GFR (MDRD) Non-Af 9 L Glucose 112 H Magnesium 2.8 H Direct Bilirubin 0.6 H GGT AST 52 H Alkaline Phosphatase 469 H Creatine Kinase < 20 L NT-Pro-B Natriuret Pep Urine Protein Ur Leukocyte Esterase Urine Ascorbic Acid 08/19/19 08/19/19 08/19/19 03:49 03:49 08:27 RBC Hgb Hct RDW [place] % (Auto) Potassium BUN Creatinine Est GFR ( Amer) Est GFR (MDRD) Non-Af Glucose Magnesium Direct Bilirubin GGT 706 H AST Alkaline Phosphatase Creatine Kinase NT-Pro-B Natriuret Pep 9540 H Urine Protein 30 H Ur Leukocyte Esterase LARGE H Urine Ascorbic Acid 40 H - Diagnostic Test Radiology reviewed: Image reviewed, Reports reviewed - Cardiomegaly with vascular congestion, unchanged from prior chest x-ray - EKG Interpretation by Me EKG shows normal: Sinus rhythm, [place], Intervals, QRS Complexes. abnormal: ST-T Waves - Borderline T abnormalities in the anterolateral leads Rate: Normal - 61 Rhythm: NSR [place]/QRS: Left axis deviation P Waves: LAE When compared to previous EKG there are: No significant change Critical Care Note - Critical Care Note Total time excluding time spent on procedures (mins): 35 Comments: At least 35 minutes spent in seeing the patient obtaining history and physical, reviewing care home records, reviewing several admission records from this hospital. Reviewing current lab work, x-rays, and EKG. Reviewing prior urine cultures from urinary tract infections to find out the predominant organisms and the best antibiotic choice here. Starting emergency medical management of hyperkalemia with acute on chronic renal failure. Phone calls to her attending physician to get the patient admitted to the hospital. Discharge - Discharge Clinical Impression: Acute hyperkalemia, Decubitus ulcer of left heel, stage 4 [id number] renal failure Qualifiers: Acute renal failure type: unspecified Chronic kidney disease stage: stage 4 (severe) Qualified Code(s): N17.9 - Acute kidney failure, unspecified Urinary tract infection Qualifiers: Urinary tract infection type: site unspecified Hematuria presence: with hematuria Qualified Code(s): N39.0 - Urinary tract infection, site not specified Condition: Fair Disposition: ADMITTED INPATIENT Admitting Provider: Shahriar Unit Admitted: IMCU I personally performed the services described in the documentation, reviewed and edited the documentation which was dictated to the scribe in my presence, and it accurately records my words and actions.
[2019-08-19 07:12] LABS: NT PRO BNP 9540 pg/mL (<125)
[2019-08-19 07:14] LABS: TROPONIN I < 0.012 ng/mL
--- NOTE | 2019-08-19 08:05 | EKG REPORT ---
SEVERITY:- BORDERLINE ECG - SINUS RHYTHM PROBABLE LEFT ATRIAL ABNORMALITY BORDERLINE LEFT AXIS DEVIATION BORDERLINE T ABNORMALITIES, ANT-LAT LEADS : Confirmed by: Daphnie Lujan 19-Aug-2019 08:05:02
[2019-08-19 08:52] LABS: APPEARANCE,URINE SLIGHTLY-CLOUDY; BILIRUBIN,URINE NEGATIVE (NEGATIVE); COLOR,URINE YELLOW; GLUCOSE, URINE NEGATIVE (NEGATIVE); KETONES,URINE NEGATIVE (NEGATIVE); LEUKOCYTE ESTERASE,URINE LARGE (NEGATIVE); NITRITE,URINE NEGATIVE (NEGATIVE); PROTEIN,URINE 30 mg/dL (NEGATIVE); URINE SPECIFIC GRAVITY 1.012; UROBILINOGEN,URINE NEGATIVE mg/dL (<2.0)
--- NOTE | 2019-08-19 10:39 | RADIOLOGY REPORT (SQ) ---
EXAM DESCRIPTION: CHEST SINGLE VIEW IMAGES COMPLETED DATE/TIME: 08/19/2019 10:26 am REASON FOR STUDY: Acute renal failure, PMH CHF COMPARISON: 08/04/2019 EXAM PARAMETERS: NUMBER OF VIEWS: One view. TECHNIQUE: Single frontal radiographic view of the chest acquired. RADIATION DOSE: NA LIMITATIONS: None. FINDINGS: LUNGS AND PLEURA: Bilateral interstitial airspace disease. Possible small left effusion. No pneumothorax. MEDIASTINUM AND HILAR STRUCTURES: No masses. Contour normal. HEART AND VASCULAR STRUCTURES: Heart is enlarged with central vascular prominence. BONES: No acute findings. HARDWARE: Sternotomy wires are in place. OTHER: No other significant finding. IMPRESSION: Cardiomegaly and vascular congestion. Similar findings were noted on prior study. TECHNICAL DOCUMENTATION: JOB ID: [id number] 2010 [employer]- All Rights Reserved Reading location - IP/workstation name: [email or web address]
[2019-08-19] MEDS ORDERED: GLUCAGON,HUMAN RECOMB 1 MG INJ IM PRN (11:30)
[2019-08-19] MEDS ORDERED: DEXTROSE 40% GEL 15 GM TUBE PO PRN ×2 (11:30)
[2019-08-19] MEDS ORDERED: DEXTROSE 50%-WATER 25 GM/50 ML DISP.SYRIN IV PRN ×2 (11:30)
[2019-08-19] MEDS ORDERED: (PENDING PHARMACY ID) (Ondansetron Hcl [Ondansetron Hcl] 4 MG) PO PRN (11:32)
[2019-08-19] MEDS ORDERED: IPRATROPIUM/ALBUTEROL 0.5-2.5 MG/3 ML AMPUL NEB PRN (11:32)
[2019-08-19] MEDS ORDERED: DICYCLOMINE HCL 10 MG CAPSULE PO PRN (11:32)
[2019-08-19] MEDS ORDERED: ONDANSETRON 4 MG TAB.RAPDIS PO PRN (11:59)
[2019-08-19] MEDS ORDERED: (PENDING PHARMACY ID) (Hydralazine Hcl [Hydralazine Hcl] 100 MG) PO SCH (14:00)
[2019-08-19] MEDS: MECLIZINE HCL 25 MG TABLET PO SCH ×2 (15:15→18:59)
[2019-08-19] MEDS: HYDRALAZINE HCL 50 MG TABLET PO SCH ×2 (15:15→21:38)
[2019-08-19] MEDS: GABAPENTIN 300 MG CAPSULE PO SCH ×2 (15:15→21:39)
[2019-08-19] MEDS: HEPARIN SOD (PORCINE) 5,000 UNIT/ML 1 ML VIAL SUBCUT SCH ×2 (15:16→21:40)
[2019-08-19] MEDS: INSULIN LISPRO 100 UNIT/ML 3 ML VIAL SUBCUT SCH ×2 (15:31→21:40)
[2019-08-19] MEDS: FAMOTIDINE 20 MG TABLET PO SCH (18:59)
[2019-08-19] MEDS: CARVEDILOL 12.5 MG TABLET PO SCH (21:39)
[2019-08-19] MEDS: ATORVASTATIN CALCIUM 20 MG TABLET PO SCH (21:39)
[2019-08-20 05:47] LABS: ABSOLUTE EOSINOPHILS # (AUTO) 0.1 10^3/uL (0.0-0.6); ABSOLUTE LYMPHOCYTES (AUTO) 0.9 10^3/uL (0.5-4.7); ABSOLUTE MONOCYTES (AUTO) 0.5 10^3/uL (0.1-1.4); ABSOLUTE NEUT (AUTO) 2.4 10^3/uL (1.7-8.2); BASOPHILS % (AUTO) 0.8 % (0-2); EOSINOPHILS % (AUTO) 1.5 % (0-6); HEMATOCRIT 23.2 % (36.0-47.0); LYMPHOCYTES % (AUTO) 22.6 % (13-45); MEAN CORPUSCULAR HEMOGLOBIN 30.7 pg (27.0-33.4); MEAN CORPUSCULAR HGB CONC 32.6 g/dL (32.0-36.0); MEAN CORPUSCULAR VOLUME 94 fl (80-97); MONOCYTES % (AUTO) 13.6 % (3-13); PLATELET COUNT 182 10^3/uL (150-450); RED BLOOD COUNT 2.46 10^6/uL (3.72-5.28); SEGMENTED NEUTROPHILS % (AUTO) 61.5 % (42-78); TOTAL CELLS COUNTED % (AUTO) 100 %; WHITE BLOOD COUNT 3.9 10^3/uL (4.0-10.5)
[2019-08-20 05:58] LABS: HEMOGLOBIN 7.6 g/dL (12.0-15.5)
[2019-08-20] MEDS ORDERED: PANTOPRAZOLE SODIUM 40 MG TABLET.DR PO SCH (06:00)
[2019-08-20 06:11] LABS: ALBUMIN 3.5 g/dL (3.5-5.0); ALKALINE PHOSPHATASE 422 U/L (38-126); ANION GAP 9 (5-19); ASPARTATE AMINO TRANSFERASE 40 U/L (14-36); BILIRUBIN,DIRECT 0.5 mg/dL (0.0-0.4); BILIRUBIN,TOTAL 0.7 mg/dL (0.2-1.3); BLOOD UREA NITROGEN 91 mg/dL (7-20); CALCIUM 9.1 mg/dL (8.4-10.2); CARBON DIOXIDE 27 mmol/L (22-30); CHLORIDE 104 mmol/L (98-107); GLUCOSE 120 mg/dL (75-110); POTASSIUM 5.2 mmol/L (3.6-5.0); TOTAL PROTEIN 7.7 g/dL (6.3-8.2)
[2019-08-20] MEDS: HYDRALAZINE HCL 50 MG TABLET PO SCH ×3 (06:46→21:59)
[2019-08-20] MEDS: GABAPENTIN 300 MG CAPSULE PO SCH ×3 (06:46→22:02)
[2019-08-20] MEDS: HEPARIN SOD (PORCINE) 5,000 UNIT/ML 1 ML VIAL SUBCUT SCH ×3 (06:47→22:02)
[2019-08-20] MEDS ORDERED: FUROSEMIDE INJ/PF 20 MG/2 ML SDV IV PRN (08:34)
[2019-08-20] MEDS: INSULIN LISPRO 100 UNIT/ML 3 ML VIAL SUBCUT SCH ×4 (08:51→21:58)
[2019-08-20] MEDS: AMLODIPINE BESYLATE 10 MG TABLET PO SCH (09:01)
[2019-08-20] MEDS: ASCORBIC ACID 500 MG TABLET PO SCH (09:16)
[2019-08-20] MEDS: FAMOTIDINE 20 MG TABLET PO SCH ×2 (09:16→17:28)
[2019-08-20] MEDS: FERROUS SULFATE 325 MG TABLET PO SCH (09:16)
[2019-08-20] MEDS: CARVEDILOL 12.5 MG TABLET PO SCH ×2 (09:17→21:59)
[2019-08-20] MEDS: MECLIZINE HCL 25 MG TABLET PO SCH ×3 (09:17→17:28)
[2019-08-20] MEDS ORDERED: (PENDING PHARMACY ID) (Insulin Degludec [Tresiba Flextouch U-100] 30 UNIT) SUBCUT SCH (10:00)
[2019-08-20 19:37] LABS: ABSOLUTE MONOCYTES (AUTO) 0.8 10^3/uL (0.1-1.4); ABSOLUTE NEUT (AUTO) 3.8 10^3/uL (1.7-8.2); BASOPHILS % (AUTO) 0.5 % (0-2); EOSINOPHILS % (AUTO) 0.6 % (0-6); HEMATOCRIT 28.7 % (36.0-47.0); HEMOGLOBIN 9.4 g/dL (12.0-15.5); MEAN CORPUSCULAR HEMOGLOBIN 30.5 pg (27.0-33.4); MEAN CORPUSCULAR HGB CONC 32.6 g/dL (32.0-36.0); MEAN CORPUSCULAR VOLUME 94 fl (80-97); MONOCYTES % (AUTO) 14.9 % (3-13); PLATELET COUNT 175 10^3/uL (150-450); RED BLOOD COUNT 3.07 10^6/uL (3.72-5.28); RED CELL DISTRIBUTION WIDTH 16.8 % (11.5-14.0); TOTAL CELLS COUNTED % (AUTO) 100 %; WHITE BLOOD COUNT 5.6 10^3/uL (4.0-10.5)
--- NOTE | 2019-08-20 19:42 | PDOC H&P ---
History of Present Illness Admission Date/PCP: 08/19/19 08:43 RENAN NAGI History of Present Illness: LEEANN FUNEZ is a 64 year old female known to my practice who was recently discharged to local SNF for rehabilitation. She was brought to the ED for further evaluation of reported hyperkalemia in recent laboratory evaluation. Her serum potassium was reported at 5.9. Patient reported no intake of oral potassium supplementation but admitted to indiscriminate consumption of banana, orange, and other fruits that may be high in potassium. She denied any chest pain, difficulty with breathing, nausea, or vomiting. She reported chronic lower abdominal pain. No dysuria, flank pain or hematuria. She was managed with IV calcium gluconate, Regular insulin and 50% Dextrose administration. Her laboratory evaluation revealed acute renal failure with comparative elevation of her serum creatinine and BUN. She denied any tarry or bloody stool. She was advised hospitalization for further evaluation and management. Her morbidities are listed below. Past Medical History Cardiac Medical History: Reports: Congestive Heart Failure, Coronary Artery Dis ease, Myocardial Infarction, Hyperlipidema, Hypertension, Peripheral Vascular Disease Denies: Atrial Fibrillation Pulmonary Medical History: Reports: Bronchitis Denies: Asthma, Chronic Obstructive Pulmonary Disease (COPD), Pneumonia, Tuberculosis Neurological Medical History: Denies: Seizures Endocrine Medical History: Reports: Diabetes Mellitus Type 1, Diabetes Mellitus Type 2 Renal/ Medical History: Denies: End Stage Renal Disease Malignancy Medical History: GI Medical History: Reports: Diverticulitis - diverticulosis Denies: Gastroesophageal Reflux Disease, Hiatal Hernia Musculoskeltal Medical History: Denies: Arthritis Psychiatric Medical History: Denies: Bipolar Disorder, Depression Hematology: Denies: Anemia, Hemophilia, Sickle Cell Disease Infectious Medical History: Past Surgical History Past Surgical History: Reports: Coronary Artery Bypass Graft - May 16 2011, Tonsillectomy, Vascular Surgery Denies: Amputation, Appendectomy, Cardiac Catheterization, Section, Cholecystectomy, Hysterectomy, Mastectomy, Tubal Ligation Social History Lives with: Family Smoking Status: Never Smoker Electronic Cigarette use?: No Frequency of Alcohol Use: None Hx Recreational Drug Use: No Drugs: None Hx Prescription Drug Abuse: No Family History Family History: CAD, Hyperlipidemia, Hypertension, Reviewed & Not Pertinent Parental Family History Reviewed: Yes Children Family History Reviewed: Yes Sibling(s) Family History Reviewed.: Yes Medication/Allergy Home Medications: Amlodipine Besylate [Norvasc 10 mg Tablet] 10 mg PO DAILY 11/30/18 Ascorbic Acid [Vitamin C 500 mg Tablet] 500 mg PO DAILY 11/30/18 Atorvastatin Calcium [Lipitor 20 mg Tablet] 20 mg PO QHS 11/30/18 Docusate Sodium [Colace 100 mg Capsule] 100 mg PO BIDP PRN 11/30/18 Ferrous Sulfate [Feosol 325 mg Tablet] 325 mg PO DAILY 11/30/18 Gabapentin [Neurontin 300 mg Capsule] 300 mg PO Q8 01/06/19 Insulin Degludec [Tresiba Flextouch U-100] 30 unit SQ DAILY 01/06/19 Escitalopram Oxalate [Lexapro 10 mg Tablet] 10 mg PO QHS #30 tablet 03/01/19 Carvedilol [Coreg 12.5 mg Tablet] 12.5 mg PO Q12 04/13/19 Cholecalciferol (Vitamin D3) [Vitamin D3 1000 Unit Tablet] 2,000 unit PO DAILY 04/13/19 Dicyclomine HCl [Bentyl 10 mg Capsule] 10 mg PO DAILY PRN 04/13/19 Famotidine [Pepcid] 20 mg PO BID 04/13/19 Hydralazine HCl 100 mg PO Q8 04/13/19 Multivit,Tx with Iron,Minerals [Thera-M] 1 each PO DAILY 05/08/19 Acetaminophen [Acetaminophen Extra Strength] 500 mg PO DAILYP PRN 07/01/19 Meclizine HCl [Verticalm] 12.5 mg PO TID #45 tablet 07/19/19 Omeprazole 20 mg PO DAILY 07/25/19 Ipratropium/Albuterol Sulfate [Duoneb 3 ml Ampul] 3 ml NEB RTQ6HP PRN 08/19/19 Ondansetron HCl 4 mg PO Q6HP PRN 08/19/19 Oxycodone HCl/Acetaminophen [Percocet 5-325 mg Tablet] 1 tab PO Q8HP PRN 08/19/19 Sucralfate [Carafate Susp 1 gm/10 ml Udcup] 10 ml PO QHS 08/19/19 Allergies/Adverse Reactions: pregabalin [From Lyrica] Allergy (Intermediate, Verified 07/03/19 07:18) RASH duloxetine Allergy (Verified 07/03/19 07:18) Review of Systems Constitutional: ABSENT: chills, fever(s), headache(s) Eyes: ABSENT: visual disturbances Ears: ABSENT: hearing changes Cardiovascular: ABSENT: chest pain, dyspnea on exertion, edema, orthropnea, pal pitations Respiratory: ABSENT: cough, hemoptysis Gastrointestinal: PRESENT: abdominal pain - chronic lower region. ABSENT: constipation, diarrhea, hematemesis, hematochezia, nausea, vomiting Genitourinary: ABSENT: dysuria, hematuria Musculoskeletal: ABSENT: joint swelling Integumentary: ABSENT: rash, wounds Neurological: ABSENT: abnormal gait, abnormal speech, confusion, dizziness, focal weakness, syncope Psychiatric: ABSENT: anxiety, depression, homidical ideation, suicidal ideation Endocrine: ABSENT: cold intolerance, heat intolerance, polydipsia, polyuria Hematologic/Lymphatic: ABSENT: easy bleeding, easy bruising, lymphadenopathy Physical Exam Vital Signs: Temp Pulse Resp BP Pulse Ox 98.3 F 14 107/65 100 08/19/19 01:51 08/19/19 11:01 08/19/19 11:01 08/19/19 10:01 Intake & Output 08/18/19 08/19/19 08/20/19 06:59 06:59 06:59 Weight 93.3 kg General appearance: PRESENT: no acute distress, obese Eye exam: PRESENT: conjunctiva pink. ABSENT: scleral icterus Mouth exam: PRESENT: moist Teeth exam: PRESENT: poor dentation Respiratory exam: PRESENT: clear to auscultation lele, decreased breath sounds - at lung bases Cardiovascular exam: PRESENT: RRR, +S1, +S2. ABSENT: diastolic murmur, rubs, systolic murmur Vascular exam: ABSENT: pallor GI/Abdominal exam: PRESENT: normal bowel sounds, soft, tenderness - nonspecific chronic tenderness to deep palpation. ABSENT: distended, guarding, mass, organolmegaly, rebound Rectal exam: PRESENT: deferred Extremities exam: PRESENT: pedal edema - chronic to mid leg region Musculoskeletal exam: PRESENT: deformity - left heel region due to chronic nonhealing diabetic ulcer Neurological exam: PRESENT: alert, awake, oriented to person, oriented to place, oriented to time, oriented to situation, CN II-XII grossly intact. ABSENT: motor sensory deficit Psychiatric exam: PRESENT: appropriate affect, normal mood. ABSENT: homicidal ideation, suicidal ideation Skin exam: PRESENT: dry, warm, other - diabetic nonhealing ulcer left heel Results Laboratory Results: 08/19/19 02:58 08/19/19 03:49 08/19/19 08/19/19 08/19/19 02:58 02:58 03:49 WBC 4.4 RBC 2.53 L Hgb 7.8 L Hct 24.2 L MCV 96 MCH 30.7 MCHC 32.2 RDW 16.9 H Plt Count 191 Seg Neutrophils % 62.5 Sodium Cancelled 142.3 Potassium Cancelled 5.8 H Chloride Cancelled 107 Carbon Dioxide Cancelled 26 Anion Gap Cancelled 9 BUN Cancelled 93 H Creatinine Cancelled 4.85 H Est GFR ( Amer) Cancelled 11 L Est GFR (Non-Af Amer) Cancelled Glucose Cancelled 112 H Calcium Cancelled 9.4 Magnesium Cancelled 2.8 H Total Bilirubin Cancelled 0.8 AST Cancelled 52 H Alkaline Phosphatase Cancelled 469 H Total Protein Cancelled 8.2 Albumin Cancelled 3.8 Urine Color Urine Appearance Urine pH Ur Specific [place] Urine Protein Urine Glucose (UA) Urine Ketones Urine Blood Urine Nitrite Ur Leukocyte Esterase Urine WBC (Auto) Urine RBC (Auto) 08/19/19 08:27 WBC RBC Hgb Hct MCV MCH MCHC RDW Plt Count Seg Neutrophils % Sodium Potassium Chloride Carbon Dioxide Anion Gap BUN Creatinine Est GFR ( Amer) Est GFR (Non-Af Amer) Glucose Calcium Magnesium Total Bilirubin AST Alkaline Phosphatase Total Protein Albumin Urine Color YELLOW Urine Appearance SLIGHTLY-CLOUDY Urine pH 6.0 Ur Specific [place] 1.012 Urine Protein 30 H Urine Glucose (UA) NEGATIVE Urine Ketones NEGATIVE Urine Blood NEGATIVE Urine Nitrite NEGATIVE Ur Leukocyte Esterase LARGE H Urine WBC (Auto) 51 Urine RBC (Auto) 29 08/19/19 08/19/19 03:49 03:49 Creatine Kinase < 20 L Troponin I < 0.012 NT-Pro-B Natriuret Pep 9540 H Impressions: Chest X-Ray 08/19/19 10:03 IMPRESSION: Cardiomegaly and vascular congestion. Similar findings were noted on prior study. Assessment & Plan - Diagnosis (1) Acute hyperkalemia Is this a current diagnosis for this admission?: Yes Plan: See admitting attending physician orders for details about care plan. (2) [id number] renal failure Qualifiers: Acute renal failure type: unspecified Chronic kidney disease stage: stage 4 (severe) Qualified Code(s): N17.9 - Acute kidney failure, unspecified; N18.4 - Chronic kidney disease, stage 4 (severe) Is this a current diagnosis for this admission?: Yes Plan: See admitting attending physician orders for details about care plan. (3) Chronic combined systolic and diastolic CHF (congestive heart failure) Is this a current diagnosis for this admission?: Yes Plan: See admitting attending physician orders for details about care plan. (4) Diabetes mellitus type 2 in obese Is this a current diagnosis for this admission?: Yes Plan: See admitting attending physician orders for details about care plan. (5) Anemia of chronic disease Is this a current diagnosis for this admission?: Yes Plan: See admitting attending physician orders for details about care plan. (6) Abdominal pain, chronic, bilateral lower quadrant Is this a current diagnosis for this admission?: Yes Plan: See admitting attending physician orders for details about care plan. (7) Diabetic ulcer of left foot associated with type 2 diabetes mellitus Qualifiers: Diabetic foot ulcer location: heel Non-pressure ulcer stage: unspecified non-pressure ulcer stage Qualified Code(s): E11.621 - Type 2 diabetes mellitus with foot ulcer; L97.429 - Non-pressure chronic ulcer of left heel and midfoot with unspecified severity Is this a current diagnosis for this admission?: Yes Plan: See admitting attending physician orders for details about care plan. (8) Chronic use of opiate for therapeutic purpose Is this a current diagnosis for this admission?: Yes Plan: See admitting attending physician orders for details about care plan. (9) Obesity (BMI 30-39.9) Is this a current diagnosis for this admission?: Yes Plan: See admitting attending physician orders for details about care plan. - Time Time Spent: 50 to 70 Minutes Medications reviewed and adjusted accordingly: Yes Anticipated discharge: SNF Within: Other - Inpatient Certification Based on my medical assessment, after consideration of the patient's comorbidities, presenting symptoms, or acuity I expect that the services needed warrant INPATIENT care.: Yes I certify that my determination is in accordance with my understanding of Medicare's requirements for reasonable and necessary INPATIENT services [42 CFR 412.3e].: Yes Medical Necessity: Significant Comorbidiites Make Outpatient Treatment Too Risky, Need Close Monitoring Due to Risk of Patient Decompensation, Need For Continuous Telemetry Monitoring, Risk of Complication if Not Cared For in Hosp ital, Risk of Diagnosis Which Will Require Inpatient Eval/Care/Monitoring Post Hospital Care: D/C or Transfer Summary - Plan Summary Plan Summary: See admitting attending physician orders for details about care plan.
--- NOTE | 2019-08-20 19:47 | PDOC PROGRESS REPORT ---
Subjective Progress Note for:: 08/20/19 Subjective:: Patient denied any chest pain or difficulty with breathing. No nausea or vomiting. No abdominal pain. No fever or chills. Reason For Visit: ACUTE ON CHRONIC KIDNYE FAILURE WITH HYPERKALEMIA, Physical Exam Vital Signs: Temp Pulse Resp BP Pulse Ox 97.8 F 64 14 121/58 L 95 08/20/19 15:58 08/20/19 15:58 08/20/19 15:58 08/20/19 15:58 08/20/19 15:58 Intake & Output 08/19/19 08/20/19 08/21/19 06:59 06:59 06:59 Intake Total 600 Balance 600 Weight 93.3 kg 93.3 kg General appearance: PRESENT: no acute distress, obese Head exam: PRESENT: atraumatic, normocephalic Eye exam: PRESENT: conjunctiva pink. ABSENT: scleral icterus Respiratory exam: PRESENT: clear to auscultation lele, decreased breath sounds - at lung bases Cardiovascular exam: PRESENT: RRR, +S1, +S2. ABSENT: diastolic murmur, systolic murmur Vascular exam: ABSENT: pallor GI/Abdominal exam: PRESENT: normal bowel sounds, soft. ABSENT: distended, guarding, mass, organolmegaly, rebound, tenderness Extremities exam: PRESENT: pedal edema - chronic bilateral to legs Neurological exam: PRESENT: alert, awake, oriented to person, oriented to place, oriented to time, oriented to situation Psychiatric exam: PRESENT: appropriate affect, normal mood. ABSENT: homicidal ideation, suicidal ideation Skin exam: PRESENT: dry, warm, other - chronic left foot non healing diabetic foot ulcer Results Laboratory Results: 08/20/19 04:54 08/20/19 08/20/19 08/20/19 04:54 04:54 07:49 WBC 3.9 L RBC 2.46 L Hgb 7.6 L Hct 23.2 L MCV 94 MCH 30.7 MCHC 32.6 RDW 17.0 H Plt Count 182 Seg Neutrophils % 61.5 Sodium 139.9 Potassium 5.2 H Chloride 104 Carbon Dioxide 27 Anion Gap 9 BUN 91 H Creatinine 4.96 H Est GFR ( Amer) 11 L Glucose 120 H Calcium 9.1 Total Bilirubin 0.7 AST 40 H Alkaline Phosphatase 422 H Total Protein 7.7 Albumin 3.5 Blood Type A2subB POSITIVE Antibody Screen NEGATIVE 08/19/19 08:27 Catheterized Urine Urine Culture - Final Yeast, Not [place] Albicans 08/19/19 08/19/19 03:49 03:49 Creatine Kinase < 20 L Troponin I < 0.012 NT-Pro-B Natriuret Pep 9540 H Impressions: Chest X-Ray 08/19/19 10:03 IMPRESSION: Cardiomegaly and vascular congestion. Similar findings were noted on prior study. Assessment & Plan - Diagnosis (1) Acute hyperkalemia Is this a current diagnosis for this admission?: Yes (2) [id number] renal failure Qualifiers: Acute renal failure type: unspecified Chronic kidney disease stage: stage 4 (severe) Qualified Code(s): N17.9 - Acute kidney failure, unspecified; N18.4 - Chronic kidney disease, stage 4 (severe) Is this a current diagnosis for this admission?: Yes (3) Chronic combined systolic and diastolic CHF (congestive heart failure) Is this a current diagnosis for this admission?: Yes (4) Diabetes mellitus type 2 in obese Is this a current diagnosis for this admission?: Yes (5) Anemia of chronic disease Is this a current diagnosis for this admission?: Yes (6) Abdominal pain, chronic, bilateral lower quadrant Is this a current diagnosis for this admission?: Yes (7) Diabetic ulcer of left foot associated with type 2 diabetes mellitus Qualifiers: Diabetic foot ulcer location: heel Non-pressure ulcer stage: unspecified non-pressure ulcer stage Qualified Code(s): E11.621 - Type 2 diabetes mellitus with foot ulcer; L97.429 - Non-pressure chronic ulcer of left heel and midfoot with unspecified severity Is this a current diagnosis for this admission?: Yes (8) Chronic use of opiate for therapeutic purpose Is this a current diagnosis for this admission?: Yes (9) Obesity (BMI 30-39.9) Is this a current diagnosis for this admission?: Yes - Time Time Spent with patient: 25-34 minutes Level of Care: IMCU Medications reviewed and adjusted accordingly: Yes Anticipated discharge: SNF Within: Other - Inpatient Certification I certify that my determination is in accordance with my understanding of Medicare's requirements for reasonable and necessary INPATIENT services [42 CFR 412.3e].: Yes - Plan Summary Plan Summary: Continue current medication management. Follow up on repeat BMP in am. Adjust dietary food intake for low potassium content. D/C Multivitamin use.
[2019-08-20] MEDS: ATORVASTATIN CALCIUM 20 MG TABLET PO SCH (22:02)
[2019-08-21 05:15] LABS: ABSOLUTE LYMPHOCYTES (AUTO) 1.3 10^3/uL (0.5-4.7); ABSOLUTE MONOCYTES (AUTO) 0.7 10^3/uL (0.1-1.4); BASOPHILS % (AUTO) 0.6 % (0-2); EOSINOPHILS % (AUTO) 0.7 % (0-6); HEMATOCRIT 30.5 % (36.0-47.0); LYMPHOCYTES % (AUTO) 25.6 % (13-45); MEAN CORPUSCULAR HEMOGLOBIN 30.3 pg (27.0-33.4); MEAN CORPUSCULAR HGB CONC 32.6 g/dL (32.0-36.0); MEAN CORPUSCULAR VOLUME 93 fl (80-97); MONOCYTES % (AUTO) 14.2 % (3-13); PLATELET COUNT 183 10^3/uL (150-450); RED BLOOD COUNT 3.29 10^6/uL (3.72-5.28); RED CELL DISTRIBUTION WIDTH 17.2 % (11.5-14.0); SEGMENTED NEUTROPHILS % (AUTO) 58.9 % (42-78); TOTAL CELLS COUNTED % (AUTO) 100 %; WHITE BLOOD COUNT 5.1 10^3/uL (4.0-10.5)
[2019-08-21] MEDS: HYDRALAZINE HCL 50 MG TABLET PO SCH ×3 (05:29→22:15)
[2019-08-21] MEDS: HEPARIN SOD (PORCINE) 5,000 UNIT/ML 1 ML VIAL SUBCUT SCH ×3 (05:31→22:26)
[2019-08-21] MEDS: GABAPENTIN 300 MG CAPSULE PO SCH ×3 (05:32→22:26)
[2019-08-21] MEDS: INSULIN LISPRO 100 UNIT/ML 3 ML VIAL SUBCUT SCH ×4 (08:22→22:15)
[2019-08-21] MEDS: AMLODIPINE BESYLATE 10 MG TABLET PO SCH (10:19)
[2019-08-21] MEDS: FERROUS SULFATE 325 MG TABLET PO SCH (10:19)
[2019-08-21] MEDS: MECLIZINE HCL 25 MG TABLET PO SCH ×3 (10:19→18:25)
[2019-08-21] MEDS: CARVEDILOL 12.5 MG TABLET PO SCH ×2 (10:20→22:15)
[2019-08-21] MEDS: ASCORBIC ACID 500 MG TABLET PO SCH (10:20)
[2019-08-21] MEDS: FAMOTIDINE 20 MG TABLET PO SCH ×2 (10:20→18:26)
--- NOTE | 2019-08-21 19:01 | PDOC PROGRESS REPORT ---
Subjective Progress Note for:: 08/21/19 Subjective:: Patient denied any chest pain or difficulty with breathing. No nausea or vomiting. No abdominal pain. No fever or chills. Post transfusion hemoglobin is 10.0 g/dL! Reason For Visit: ACUTE ON CHRONIC KIDNYE FAILURE WITH HYPERKALEMIA, Physical Exam Vital Signs: Temp Pulse Resp BP Pulse Ox 97.8 F 55 L 20 96/51 L 94 08/21/19 15:40 08/21/19 15:40 08/21/19 15:40 08/21/19 15:40 08/21/19 15:40 Intake & Output 08/20/19 08/21/19 08/22/19 06:59 06:59 06:59 Intake Total 700 Balance 700 Weight 93.3 kg 95 kg Physical Exam: General appearance: PRESENT: no acute distress, obese Head exam: PRESENT: atraumatic, normocephalic Eye exam: PRESENT: conjunctiva pink. ABSENT: pallor, scleral icterus Respiratory exam: PRESENT: clear to auscultation lele, decreased breath sounds - at lung bases Cardiovascular exam: PRESENT: RRR, +S1, +S2. ABSENT: diastolic murmur, systolic murmur GI/Abdominal exam: PRESENT: normal bowel sounds, soft. ABSENT: distended, guarding, mass, organomegaly, rebound, tenderness Extremities exam: PRESENT: pedal edema - chronic bilateral to legs Neurological exam: PRESENT: alert, awake, oriented to person, oriented to place, oriented to time, oriented to situation Psychiatric exam: PRESENT: appropriate affect, normal mood. ABSENT: homicidal ideation, suicidal ideation Skin exam: PRESENT: dry, warm, other - chronic left foot non healing diabetic foot ulcer Results Laboratory Results: 08/21/19 04:21 08/20/19 04:54 08/20/19 08/21/19 19:22 04:21 WBC 5.6 5.1 RBC 3.07 L 3.29 L Hgb 9.4 L 10.0 L Hct 28.7 L 30.5 L MCV 94 93 MCH 30.5 30.3 MCHC 32.6 32.6 RDW 16.8 H 17.2 H Plt Count 175 183 Seg Neutrophils % 67.0 58.9 08/19/19 08:27 Catheterized Urine Urine Culture - Final Yeast, Not [place] 08/19/19 08/19/19 03:49 03:49 Creatine Kinase < 20 L Troponin I < 0.012 NT-Pro-B Natriuret Pep 9540 H Impressions: Chest X-Ray 08/19/19 10:03 IMPRESSION: Cardiomegaly and vascular congestion. Similar findings were noted on prior study. Assessment & Plan - Diagnosis (1) Acute hyperkalemia Is this a current diagnosis for this admission?: Yes (2) [id number] renal failure Qualifiers: Acute renal failure type: unspecified Chronic kidney disease stage: stage 4 (severe) Qualified Code(s): N17.9 - Acute kidney failure, unspecified; N18.4 - Chronic kidney disease, stage 4 (severe) Is this a current diagnosis for this admission?: Yes (3) Chronic combined systolic and diastolic CHF (congestive heart failure) Is this a current diagnosis for this admission?: Yes (4) Diabetes mellitus type 2 in obese Is this a current diagnosis for this admission?: Yes (5) Anemia of chronic disease Is this a current diagnosis for this admission?: Yes (6) Abdominal pain, chronic, bilateral lower quadrant Is this a current diagnosis for this admission?: Yes (7) Diabetic ulcer of left foot associated with type 2 diabetes mellitus Qualifiers: Diabetic foot ulcer location: heel Non-pressure ulcer stage: unspecified non-pressure ulcer stage Qualified Code(s): E11.621 - Type 2 diabetes mellitus with foot ulcer; L97.429 - Non-pressure chronic ulcer of left heel and midfoot with unspecified severity Is this a current diagnosis for this admission?: Yes (8) Chronic use of opiate for therapeutic purpose Is this a current diagnosis for this admission?: Yes (9) Obesity (BMI 30-39.9) Is this a current diagnosis for this admission?: Yes - Time Time Spent with patient: 25-34 minutes Level of Care: IMCU Medications reviewed and adjusted accordingly: Yes Anticipated discharge: SNF Within: Other - Inpatient Certification Based on my medical assessment, after consideration of the patient's comorbidities, presenting symptoms, or acuity I expect that the services needed warrant INPATIENT care.: Yes I certify that my determination is in accordance with my understanding of Medicare's requirements for reasonable and necessary INPATIENT services [42 CFR 412.3e].: Yes Medical Necessity: Significant Comorbidiites Make Outpatient Treatment Too Risky, Need Close Monitoring Due to Risk of Patient Decompensation, Need For Continuous Telemetry Monitoring, Risk of Complication if Not Cared For in Hospital, Risk of Diagnosis Which Will Require Inpatient Eval/Care/Monitoring Post Hospital Care: D/C or Transfer Summary - Plan Summary Plan Summary: Decrease Amlodipine to 5 mg p.o daily and Hydralazine to 50 mg p.o q 8 hours due to persistently low blood pressure which might have contributed to her acute kidney injury. Continue other current medication management. Obtain CMP and CBC in am.
[2019-08-21] MEDS: ATORVASTATIN CALCIUM 20 MG TABLET PO SCH (22:26)
[2019-08-22 05:16] LABS: ABSOLUTE BASOPHILS # (AUTO) 0.1 10^3/uL (0.0-0.2); ABSOLUTE LYMPHOCYTES (AUTO) 1.1 10^3/uL (0.5-4.7); ABSOLUTE MONOCYTES (AUTO) 0.6 10^3/uL (0.1-1.4); ABSOLUTE NEUT (AUTO) 2.6 10^3/uL (1.7-8.2); BASOPHILS % (AUTO) 1.2 % (0-2); HEMATOCRIT 30.1 % (36.0-47.0); HEMOGLOBIN 9.8 g/dL (12.0-15.5); MEAN CORPUSCULAR HEMOGLOBIN 30.5 pg (27.0-33.4); MEAN CORPUSCULAR HGB CONC 32.7 g/dL (32.0-36.0); MEAN CORPUSCULAR VOLUME 93 fl (80-97); MONOCYTES % (AUTO) 14.4 % (3-13); PLATELET COUNT 165 10^3/uL (150-450); RED BLOOD COUNT 3.22 10^6/uL (3.72-5.28); RED CELL DISTRIBUTION WIDTH 17.2 % (11.5-14.0); SEGMENTED NEUTROPHILS % (AUTO) 59.4 % (42-78); TOTAL CELLS COUNTED % (AUTO) 100 %; WHITE BLOOD COUNT 4.4 10^3/uL (4.0-10.5)
[2019-08-22 05:35] LABS: ALBUMIN 3.5 g/dL (3.5-5.0); ALKALINE PHOSPHATASE 472 U/L (38-126); ANION GAP 9 (5-19); ASPARTATE AMINO TRANSFERASE 48 U/L (14-36); BILIRUBIN,DIRECT 0.7 mg/dL (0.0-0.4); BILIRUBIN,TOTAL 1.1 mg/dL (0.2-1.3); BLOOD UREA NITROGEN 108 mg/dL (7-20); CALCIUM 9.4 mg/dL (8.4-10.2); CARBON DIOXIDE 26 mmol/L (22-30); CHLORIDE 105 mmol/L (98-107); GLUCOSE 135 mg/dL (75-110); POTASSIUM 5.9 mmol/L (3.6-5.0); TOTAL PROTEIN 7.9 g/dL (6.3-8.2)
[2019-08-22] MEDS: HYDRALAZINE HCL 50 MG TABLET PO SCH ×3 (05:35→21:07)
[2019-08-22] MEDS: GABAPENTIN 300 MG CAPSULE PO SCH ×3 (05:35→21:22)
[2019-08-22] MEDS: HEPARIN SOD (PORCINE) 5,000 UNIT/ML 1 ML VIAL SUBCUT SCH ×3 (05:35→21:31)
[2019-08-22] MEDS: INSULIN LISPRO 100 UNIT/ML 3 ML VIAL SUBCUT SCH ×4 (09:15→21:07)
[2019-08-22] MEDS: FAMOTIDINE 20 MG TABLET PO SCH ×2 (10:19→17:03)
[2019-08-22] MEDS: ASCORBIC ACID 500 MG TABLET PO SCH (10:19)
[2019-08-22] MEDS: MECLIZINE HCL 25 MG TABLET PO SCH ×3 (10:19→17:03)
[2019-08-22] MEDS: FERROUS SULFATE 325 MG TABLET PO SCH (10:20)
[2019-08-22] MEDS: AMLODIPINE BESYLATE 5 MG TABLET PO SCH (10:20)
[2019-08-22] MEDS: CARVEDILOL 12.5 MG TABLET PO SCH ×2 (10:29→21:07)
--- NOTE | 2019-08-22 17:13 | PDOC PROGRESS REPORT ---
Subjective Progress Note for:: 08/22/19 Subjective:: Patient denied any chest pain or difficulty with breathing. No nausea or vomiting. No abdominal pain. No fever or chills. Her blood pressure has been in good range with adjustment in her blood pressure medications. Reason For Visit: ACUTE ON CHRONIC KIDNYE FAILURE WITH HYPERKALEMIA, Physical Exam Vital Signs: Temp Pulse Resp BP Pulse Ox 97.5 F 56 L 16 124/57 L 99 08/22/19 11:51 08/22/19 14:00 08/22/19 11:51 08/22/19 11:51 08/22/19 11:51 Intake & Output 08/21/19 08/22/19 08/23/19 06:59 06:59 06:59 Intake Total 700 691 865 Balance 700 691 865 Weight 95 kg 95.4 kg Physical Exam: General appearance: PRESENT: no acute distress, obese Head exam: PRESENT: atraumatic, normocephalic Eye exam: PRESENT: conjunctiva pink. ABSENT: pallor, scleral icterus Respiratory exam: PRESENT: clear to auscultation lele, decreased breath sounds - at lung bases Cardiovascular exam: PRESENT: RRR, +S1, +S2. ABSENT: diastolic murmur, systolic murmur GI/Abdominal exam: PRESENT: normal bowel sounds, soft. ABSENT: distended, guarding, mass, organomegaly, rebound, tenderness Extremities exam: PRESENT: pedal edema - chronic bilateral to legs Neurological exam: PRESENT: alert, awake, oriented to person, oriented to place, oriented to time, oriented to situation Psychiatric exam: PRESENT: appropriate affect, normal mood. ABSENT: homicidal ideation, suicidal ideation Skin exam: PRESENT: dry, warm, other - chronic left foot non healing diabetic foot ulcer Results Laboratory Results: 08/22/19 04:42 08/22/19 04:42 08/22/19 08/22/19 04:42 04:42 WBC 4.4 RBC 3.22 L Hgb 9.8 L Hct 30.1 L MCV 93 MCH 30.5 MCHC 32.7 RDW 17.2 H Plt Count 165 Seg Neutrophils % 59.4 Sodium 140.4 Potassium 5.9 H Chloride 105 Carbon Dioxide 26 Anion Gap 9 BUN 108 H Creatinine 5.42 H Est GFR ( Amer) 10 L Glucose 135 H Calcium 9.4 Total Bilirubin 1.1 AST 48 H Alkaline Phosphatase 472 H Total Protein 7.9 Albumin 3.5 08/19/19 08/19/19 03:49 03:49 Creatine Kinase < 20 L Troponin I < 0.012 NT-Pro-B Natriuret Pep 9540 H Impressions: Chest X-Ray 08/19/19 10:03 IMPRESSION: Cardiomegaly and vascular congestion. Similar findings were noted on prior study. Assessment & Plan - Diagnosis (1) Acute hyperkalemia Is this a current diagnosis for this admission?: Yes (2) [id number] renal failure Qualifiers: Acute renal failure type: unspecified Chronic kidney disease stage: stage 4 (severe) Qualified Code(s): N17.9 - Acute kidney failure, unspecified; N18.4 - Chronic kidney disease, stage 4 (severe) Is this a current diagnosis for this admission?: Yes (3) Chronic combined systolic and diastolic CHF (congestive heart failure) Is this a current diagnosis for this admission?: Yes (4) Diabetes mellitus type 2 in obese Is this a current diagnosis for this admission?: Yes (5) Anemia of chronic disease Is this a current diagnosis for this admission?: Yes (6) Abdominal pain, chronic, bilateral lower quadrant Is this a current diagnosis for this admission?: Yes (7) Diabetic ulcer of left foot associated with type 2 diabetes mellitus Qualifiers: Diabetic foot ulcer location: heel Non-pressure ulcer stage: unspecified non-pressure ulcer stage Qualified Code(s): E11.621 - Type 2 diabetes mellitus with foot ulcer; L97.429 - Non-pressure chronic ulcer of left heel and midfoot with unspecified severity Is this a current diagnosis for this admission?: Yes (8) Chronic use of opiate for therapeutic purpose Is this a current diagnosis for this admission?: Yes (9) Obesity (BMI 30-39.9) Is this a current diagnosis for this admission?: Yes - Time Time Spent with patient: 25-34 minutes Level of Care: IMCU Medications reviewed and adjusted accordingly: Yes Anticipated discharge: SNF Within: Other - Inpatient Certification Based on my medical assessment, after consideration of the patient's comorbidities, presenting symptoms, or acuity I expect that the services needed warrant INPATIENT care.: Yes I certify that my determination is in accordance with my understanding of Medicare's requirements for reasonable and necessary INPATIENT services [42 CFR 412.3e].: Yes Medical Necessity: Significant Comorbidiites Make Outpatient Treatment Too Risky, Need Close Monitoring Due to Risk of Patient Decompensation, Need For Continuous Telemetry Monitoring, Risk of Complication if Not Cared For in Hospital, Risk of Diagnosis Which Will Require Inpatient Eval/Care/Monitoring Post Hospital Care: D/C or Transfer Summary - Plan Summary Plan Summary: Patient's renal status is worsening despite adjustment in her blood pressure medication and improvement in her blood pressure. Her renal function decline will need nephrology input,
[2019-08-22] MEDS ORDERED: CALCIUM GLUCONATE 1 GM/NS 50 ML RTU IV ONE (21:00)
[2019-08-22] MEDS ORDERED: SODIUM POLYSTYRENE SULFONATE 15 GM/60 ML PO ONE (21:00)
[2019-08-22] MEDS: ATORVASTATIN CALCIUM 20 MG TABLET PO SCH (21:22)
[2019-08-22] MEDS ORDERED: INSULIN REG, HUMAN 100 UNIT/ML 3 ML VIAL (PYX) IV ONE (21:30)
[2019-08-22] MEDS ORDERED: DEXTROSE 50%-WATER 25 GM/50 ML DISP.SYRIN IV ONE (21:30)
[2019-08-23] MEDS: GABAPENTIN 300 MG CAPSULE PO SCH ×2 (05:46→21:02)
[2019-08-23] MEDS: HYDRALAZINE HCL 50 MG TABLET PO SCH ×3 (05:46→21:02)
[2019-08-23] MEDS: HEPARIN SOD (PORCINE) 5,000 UNIT/ML 1 ML VIAL SUBCUT SCH ×3 (05:47→21:03)
[2019-08-23] MEDS: INSULIN LISPRO 100 UNIT/ML 3 ML VIAL SUBCUT SCH ×4 (08:20→21:39)
[2019-08-23 08:54] LABS: HEMATOCRIT 29.8 % (36.0-47.0); HEMOGLOBIN 9.7 g/dL (12.0-15.5); MEAN CORPUSCULAR HGB CONC 32.6 g/dL (32.0-36.0); MEAN CORPUSCULAR VOLUME 95 fl (80-97); PLATELET COUNT 150 10^3/uL (150-450); RED BLOOD COUNT 3.14 10^6/uL (3.72-5.28); RED CELL DISTRIBUTION WIDTH 17.5 % (11.5-14.0); WHITE BLOOD COUNT 4.9 10^3/uL (4.0-10.5)
[2019-08-23 09:10] LABS: ALBUMIN 3.7 g/dL (3.5-5.0); ALKALINE PHOSPHATASE 509 U/L (38-126); ANION GAP 10 (5-19); ASPARTATE AMINO TRANSFERASE 48 U/L (14-36); BILIRUBIN,DIRECT 0.6 mg/dL (0.0-0.4); BLOOD UREA NITROGEN 107 mg/dL (7-20); CALCIUM 9.5 mg/dL (8.4-10.2); CARBON DIOXIDE 24 mmol/L (22-30); CHLORIDE 107 mmol/L (98-107); GLUCOSE 124 mg/dL (75-110); POTASSIUM 5.6 mmol/L (3.6-5.0)
[2019-08-23] MEDS: FERROUS SULFATE 325 MG TABLET PO SCH (10:12)
[2019-08-23] MEDS: MECLIZINE HCL 25 MG TABLET PO SCH ×3 (10:12→17:20)
[2019-08-23] MEDS: ASCORBIC ACID 500 MG TABLET PO SCH (10:12)
[2019-08-23] MEDS: AMLODIPINE BESYLATE 5 MG TABLET PO SCH (10:12)
[2019-08-23] MEDS: FAMOTIDINE 20 MG TABLET PO SCH ×2 (10:12→17:20)
[2019-08-23] MEDS: CARVEDILOL 12.5 MG TABLET PO SCH ×2 (10:12→21:02)
--- NOTE | 2019-08-23 11:30 | PDOC CONSULTATION ---
Consultation Consult Date: 08/23/19 Provider Consulted: Moo FITZGERALD Consult reason:: MIGUEL,hyperkalemia. History of Present Illness Admission Date/PCP: 08/19/19 08:43 RENAN LAZAR History of Present Illness: LEEANN FUNEZ is a 64 year old female with a past medical history of diabetes mellitus, hypertension, Morbid obesity, cor pulmonale who has had recent multiple admissions with MIGUEL and hyperkalemia was just discharged from the hospital on 07 August after being admitted with MIGUEL, fluid overload, [place] cystitis, pneumonia has been readmitted with a history of progressive lower extremity edema and incidental labs done at the halfway that showed worsening creatinine of 4+ along with potassium of over 5.5. Currently she is wide-awake and responsive to questions. She is complaining of of generalized itching all over the body which has been apparently made worse over the last 1 to 2 weeks according to her. She denies any history of nausea vomiting. She has some mild lower abdominal to mid abdominal pains. Poor food intake. Denies any history of fever or chills. Labs and medications were reviewed. Her discharge creatinine and other labs were reviewed from 07 August that showed creatinine on discharge was 1.7, LFTs were showing normal AST/ALT but her alk phosphatase was 400 and review of this particular lab shows that it has been rather chronically elevated for quite some time. Review of her CT scan done on middle of June showed that she had contracted gallbladder with gallstones, diverticulosis, some changes in the lungs suggestive of possible atelectasis/consolidation and bilateral pleural effusions.Echocardiogram done in late 2018 was reviewed which is showing that she had moderate MR, trace and moderately severe pulmonary hypertension. Past Medical History Cardiac Medical History: Reports: Coronary Artery Disease, Hyperlipidemia, Hypertension-primary, Myocardial Infarction, Peripheral Vascular Disease Denies: Atrial Fibrillation Pulmonary Medical History: Reports: Bronchitis Denies: Asthma, Chronic Obstructive Pulmonary Disease (COPD), Pneumonia, Tuberculosis Neurological Medical History: Denies: Seizures Endocrine Medical History: Reports: Diabetes Mellitus Type 2 Renal/ Medical History: Denies: Benign Prostatic Hyperplasia, End Stage Renal Disease Malignancy Medical History: GI Medical History: Reports: Diverticulitis - diverticulosis Denies: Gastroesophageal Reflux Disease, Hiatal Hernia Musculoskeltal Medical History: Denies: Arthritis, Rheumatoid Arthritis, Systemic Lupus Erythematosus Psychiatric Medical History: Denies: Bipolar Disorder, Depression Infectious Medical History: Hematology Medical History: Reports Anemia Past Surgical History Past Surgical History: Reports: Coronary Artery Bypass Graft - May 16 2011, Tonsillectomy, Vascular Surgery Denies: Appendectomy, Cardiac Catheterization, Section, Cholecystectomy, Hysterectomy, Mastectomy, Tubal Ligation Social History Lives with: Family Smoking Status: Never Smoker Electronic Cigarette use?: No Frequency of Alcohol Use: None Hx Recreational Drug Use: No Drugs: None Hx Prescription Drug Abuse: No Family History Parental Family History Reviewed: No Children Family History Reviewed: No Sibling(s) Family History Reviewed.: No Medication/Allergy Home Medications: Amlodipine Besylate [Norvasc 10 mg Tablet] 10 mg PO DAILY 11/30/18 Ascorbic Acid [Vitamin C 500 mg Tablet] 500 mg PO DAILY 11/30/18 Atorvastatin Calcium [Lipitor 20 mg Tablet] 20 mg PO QHS 11/30/18 Docusate Sodium [Colace 100 mg Capsule] 100 mg PO BIDP PRN 11/30/18 Ferrous Sulfate [Feosol 325 mg Tablet] 325 mg PO DAILY 11/30/18 Gabapentin [Neurontin 300 mg Capsule] 300 mg PO Q8 01/06/19 Insulin Degludec [Tresiba Flextouch U-100] 30 unit SQ DAILY 01/06/19 Escitalopram Oxalate [Lexapro 10 mg Tablet] 10 mg PO QHS #30 tablet 03/01/19 Carvedilol [Coreg 12.5 mg Tablet] 12.5 mg PO Q12 04/13/19 Cholecalciferol (Vitamin D3) [Vitamin D3 1000 Unit Tablet] 2,000 unit PO DAILY 04/13/19 Dicyclomine HCl [Bentyl 10 mg Capsule] 10 mg PO DAILY PRN 04/13/19 Famotidine [Pepcid] 20 mg PO BID 04/13/19 Hydralazine HCl 100 mg PO Q8 04/13/19 Multivit,Tx with Iron,Minerals [Thera-M] 1 each PO DAILY 05/08/19 Acetaminophen [Acetaminophen Extra Strength] 500 mg PO DAILYP PRN 07/01/19 Meclizine HCl [Verticalm] 12.5 mg PO TID #45 tablet 07/19/19 Omeprazole 20 mg PO DAILY 07/25/19 Ipratropium/Albuterol Sulfate [Duoneb 3 ml Ampul] 3 ml NEB RTQ6HP PRN 08/19/19 Ondansetron HCl 4 mg PO Q6HP PRN 08/19/19 Oxycodone HCl/Acetaminophen [Percocet 5-325 mg Tablet] 1 tab PO Q8HP PRN 08/19/19 Sucralfate [Carafate Susp 1 gm/10 ml Udcup] 10 ml PO QHS 08/19/19 Allergies/Adverse Reactions: pregabalin [From Lyrica] Allergy (Intermediate, Verified 07/03/19 07:18) RASH duloxetine Allergy (Verified 07/03/19 07:18) Review of Systems Constitutional: PRESENT: anorexia, fatigue. ABSENT: chills, fever(s) Nose, Mouth, and Throat: ABSENT: mouth pain, sore throat Cardiovascular: PRESENT: dyspnea on exertion, edema. ABSENT: chest pain, orthropnea Respiratory: PRESENT: dyspnea. ABSENT: cough, hemoptysis Gastrointestinal: PRESENT: abdominal pain, bloating. ABSENT: diarrhea, hear tburn, hematemesis, hematochezia, nausea, vomiting Genitourinary: ABSENT: dysuria, hematuria Musculoskeletal: ABSENT: deformity, joint swelling Integumentary: ABSENT: lesions, pruritus, rash Neurological: ABSENT: abnormal movements, abnormal speech, confusion, convulsions, focal weakness Hematologic/Lymphatic: ABSENT: easy bruising, lymphadenopathy Physical Exam Vital Signs: Temp Pulse Resp BP Pulse Ox 97.2 F 62 16 151/67 H 100 08/23/19 07:53 08/23/19 07:53 08/23/19 07:53 08/23/19 07:53 08/23/19 07:53 Intake & Output 08/22/19 08/23/19 08/24/19 06:59 06:59 06:59 Intake Total 691 1225 Balance 691 1225 Weight 95.4 kg 96.3 kg General appearance: PRESENT: morbidly obese Eye exam: PRESENT: EOMI, PERRLA, scleral icterus Ear exam: PRESENT: normal external ear exam Mouth exam: PRESENT: neck supple. ABSENT: moist Neck exam: ABSENT: lymphadenopathy, meningismus, tenderness, thyromegaly Respiratory exam: PRESENT: clear to auscultation lele, decreased breath sounds. ABSENT: crackles Cardiovascular exam: PRESENT: +S1, +S2 GI/Abdominal exam: PRESENT: normal bowel sounds, soft. ABSENT: organomegaly, tenderness Extremities exam: PRESENT: +1 edema Neurological exam: PRESENT: alert, awake, oriented to person Psychiatric exam: PRESENT: anxious Skin exam: PRESENT: mottled - Venous stasis changes in lower extremities.. ABSENT: erythema, rash Results Laboratory Results: 08/23/19 08:39 08/23/19 08:39 08/23/19 08/23/19 08:39 08:39 WBC 4.9 RBC 3.14 L Hgb 9.7 L Hct 29.8 L MCV 95 MCH 31.0 MCHC 32.6 RDW 17.5 H Plt Count 150 Sodium 141.4 Potassium 5.6 H Chloride 107 Carbon Dioxide 24 Anion Gap 10 BUN 107 H Creatinine 5.21 H Est GFR ( Amer) 10 L Glucose 124 H Calcium 9.5 Total Bilirubin 1.0 AST 48 H Alkaline Phosphatase 509 H Total Protein 8.0 Albumin 3.7 08/19/19 08/19/19 03:49 03:49 Creatine Kinase < 20 L Troponin I < 0.012 NT-Pro-B Natriuret Pep 9540 H Impressions: Chest X-Ray 08/19/19 10:03 IMPRESSION: Cardiomegaly and vascular congestion. Similar findings were noted on prior study. Assessment & Plan - Diagnosis (1) [id number] renal failure Qualifiers: Acute renal failure type: unspecified Chronic kidney disease stage: stage 4 (severe) Qualified Code(s): N17.9 - Acute kidney failure, unspecified; N18.4 - Chronic kidney disease, stage 4 (severe) Is this a current diagnosis for this admission?: Yes Plan: Patient has been admitted with his features suggestive of fluid overload in the background of cor pulmonale and acute kidney injury with electrolyte abnormalities in the form of hyperkalemia. Initiate work-up for her abnormal LFTs including imaging studies and see if needs for surgical consult. Meanwhile starting her on intravenous diuretics. (2) Acute hyperkalemia Is this a current diagnosis for this admission?: Yes Plan: In the setting of MIGUEL. Start her on SPS and monitor. (3) Obstructive jaundice Plan: Get an abdominal ultrasound with focus on liver/ gallbladder. She has a history of cholelithiasis as seen on CT scan done earlier this year. She is now itching all over and will fit in with the with the pattern of obstructive jaundice. (4) Cholelithiasis Plan: As seen on CT scan done earlier this year. (5) UTI (urinary tract infection) Qualifiers: Urinary tract infection type: site unspecified Hematuria presence: with hematuria Qualified Code(s): N39.0 - Urinary tract infection, site not specified; R31.9 - Hematuria, unspecified Plan: History of [place] cystitis and she is still showing [place] in the urine. Get cultures and start her on antifungal later on. (6) Anemia of chronic disease Is this a current diagnosis for this admission?: Yes Plan: Get anemia work-up done. DC ferrous sulfate. (7) Diabetes mellitus type 2 in obese Is this a current diagnosis for this admission?: Yes (8) HTN (hypertension) Qualifiers: Hypertension type: essential hypertension Qualified Code(s): I10 - Essential (primary) hypertension Plan: Monitor. Titrate medications accordingly. (9) Cor pulmonale Plan: Monitor.Unsure if she has been studied for sleep apnea as patient is not a good historian. 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
[2019-08-23] MEDS: FUROSEMIDE INJ/PF 20 MG/2 ML SDV IV SCH ×2 (13:54→21:03)
[2019-08-23] MEDS: SODIUM POLYSTYRENE SULFONATE 15 GM/60 ML PO SCH ×2 (13:55→21:03)
[2019-08-23] MEDS: 1/2 NORMAL SALINE 1,000 ML IV PRN (16:35)
--- NOTE | 2019-08-23 16:51 | PDOC PROGRESS REPORT ---
Subjective Progress Note for:: 08/23/19 Subjective:: Patient with recurrent hospitalization she has multiple comorbidities including chronic systolic and diastolic heart failure, chronic kidney disease, she was admitted for acute on chronic kidney disease Reason For Visit: ACUTE ON CHRONIC KIDNYE FAILURE WITH HYPERKALEMIA, Physical Exam Vital Signs: Temp Pulse Resp BP Pulse Ox 97.5 F 60 18 116/55 L 95 08/23/19 11:33 08/23/19 14:00 08/23/19 11:33 08/23/19 11:33 08/23/19 11:33 Intake & Output 08/22/19 08/23/19 08/24/19 06:59 06:59 06:59 Intake Total 691 1225 Balance 691 1225 Weight 95.4 kg 96.3 kg General appearance: PRESENT: no acute distress Eye exam: PRESENT: PERRLA Respiratory exam: PRESENT: clear to auscultation lele Cardiovascular exam: PRESENT: +S1, +S2 GI/Abdominal exam: PRESENT: soft Neurological exam: PRESENT: alert Results Laboratory Results: 08/23/19 08:39 08/23/19 08:39 08/23/19 08/23/19 08:39 08:39 WBC 4.9 RBC 3.14 L Hgb 9.7 L Hct 29.8 L MCV 95 MCH 31.0 MCHC 32.6 RDW 17.5 H Plt Count 150 Sodium 141.4 Potassium 5.6 H Chloride 107 Carbon Dioxide 24 Anion Gap 10 BUN 107 H Creatinine 5.21 H Est GFR ( Amer) 10 L Glucose 124 H Calcium 9.5 Total Bilirubin 1.0 AST 48 H Alkaline Phosphatase 509 H Total Protein 8.0 Albumin 3.7 08/19/19 08/19/19 03:49 03:49 Creatine Kinase < 20 L Troponin I < 0.012 NT-Pro-B Natriuret Pep 9540 H Impressions: Chest X-Ray 08/19/19 10:03 IMPRESSION: Cardiomegaly and vascular congestion. Similar findings were noted on prior study. Assessment & Plan - Diagnosis (1) Acute kidney injury Is this a current diagnosis for this admission?: Yes Plan: Continue treatment (2) Cor pulmonale (chronic) Is this a current diagnosis for this admission?: Yes (3) Decubitus ulcer of left heel, stage 4 Is this a current diagnosis for this admission?: Yes - Time Time Spent with patient: 15-24 minutes Level of Care: IMCU
--- NOTE | 2019-08-23 16:53 | RADIOLOGY REPORT (SQ) ---
EXAM DESCRIPTION: U/S ABDOMEN COMPLETE W/O DOP IMAGES COMPLETED DATE/TIME: 08/23/2019 4:35 pm REASON FOR STUDY: abnormal lft -obstructive pattern COMPARISON: 03/13/2019 TECHNIQUE: Dynamic and static grayscale images acquired of the abdomen and recorded on PACS. Additio nal selected color Doppler and spectral images recorded. Note: Study does not meet criteria for complete doppler/duplex scan LIMITATIONS: None. FINDINGS: PANCREAS: No masses. Visualized pancreatic duct normal caliber. LIVER: Liver size is borderline. Normal echotexture. No mass. LIVER VASCULATURE: Normal directional flow of the main portal vein and hepatic veins. GALLBLADDER: There is an 8 mm gallstone. Slight thickening of the gallbladder wall. No pericholecys tic fluid. ULTRASOUND-DETECTED VIERA'S SIGN: Negative. INTRAHEPATIC DUCTS AND COMMON DUCT: CBD and intrahepatic ducts normal caliber. No filling defects. INFERIOR VENA CAVA: Normal flow. AORTA: No aneurysm. The distal aorta was not seen. RIGHT KIDNEY: Normal size, 11.6 cm Normal echogenicity. No solid or suspicious masses. No hydr onephrosis. No calcifications. LEFT KIDNEY: Normal size, 13.1 cm. Normal echogenicity. No solid or suspicious masses. No hydr onephrosis. No calcifications. SPLEEN: Normal size. No solid masses. PERITONEAL AND PLEURAL SPACES: No ascites or effusions. OTHER: No other significant finding. IMPRESSION: Borderline hepatomegaly. Normal hepatic and portal veins. Cholelithiasis with slight t hickening of the gallbladder wall but a negative sonographic Viera sign. TECHNICAL DOCUMENTATION: JOB ID: [id number] 2010 [employer]- All Rights Reserved Reading location - IP/workstation name: [email or web address]
[2019-08-24] MEDS: HYDRALAZINE HCL 50 MG TABLET PO SCH ×3 (05:25→22:20)
[2019-08-24] MEDS: HEPARIN SOD (PORCINE) 5,000 UNIT/ML 1 ML VIAL SUBCUT SCH ×3 (05:25→22:06)
[2019-08-24 06:55] LABS: ABSOLUTE RETICS # 0.024 10^6/uL (0.028-0.122); HEMATOCRIT 29.9 % (36.0-47.0); HEMOGLOBIN 9.8 g/dL (12.0-15.5); MEAN CORPUSCULAR HEMOGLOBIN 30.7 pg (27.0-33.4); MEAN CORPUSCULAR HGB CONC 32.7 g/dL (32.0-36.0); MEAN CORPUSCULAR VOLUME 94 fl (80-97); PLATELET COUNT 144 10^3/uL (150-450); RED BLOOD COUNT 3.19 10^6/uL (3.72-5.28); RED CELL DISTRIBUTION WIDTH 17.2 % (11.5-14.0); RETICULOCYTE COUNT (AUTO) 0.76 % (0.66-2.85); WHITE BLOOD COUNT 5.5 10^3/uL (4.0-10.5)
[2019-08-24] MEDS: INSULIN LISPRO 100 UNIT/ML 3 ML VIAL SUBCUT SCH ×4 (07:30→22:06)
[2019-08-24] MEDS: FUROSEMIDE INJ/PF 20 MG/2 ML SDV IV SCH ×2 (09:49→22:20)
[2019-08-24] MEDS: CARVEDILOL 12.5 MG TABLET PO SCH ×2 (09:49→22:20)
[2019-08-24] MEDS: ASCORBIC ACID 500 MG TABLET PO SCH (09:49)
[2019-08-24 09:50] LABS: ALBUMIN 3.7 g/dL (3.5-5.0); ALKALINE PHOSPHATASE 533 U/L (38-126); ANION GAP 11 (5-19); ASPARTATE AMINO TRANSFERASE 48 U/L (14-36); BILIRUBIN,DIRECT 0.6 mg/dL (0.0-0.4); BILIRUBIN,TOTAL 1.1 mg/dL (0.2-1.3); BLOOD UREA NITROGEN 105 mg/dL (7-20); CALCIUM 9.6 mg/dL (8.4-10.2); CARBON DIOXIDE 25 mmol/L (22-30); CHLORIDE 106 mmol/L (98-107); GLUCOSE 121 mg/dL (75-110); IRON(TIBC) 76.6 ug/dL (37-170); POTASSIUM 5.1 mmol/L (3.6-5.0)
[2019-08-24] MEDS: FAMOTIDINE 20 MG TABLET PO SCH ×2 (09:50→17:50)
[2019-08-24] MEDS: SODIUM POLYSTYRENE SULFONATE 15 GM/60 ML PO SCH ×2 (09:50→22:20)
[2019-08-24] MEDS: MECLIZINE HCL 25 MG TABLET PO SCH ×3 (09:50→17:50)
[2019-08-24] MEDS: GABAPENTIN 300 MG CAPSULE PO SCH ×2 (09:50→22:20)
[2019-08-24] MEDS: AMLODIPINE BESYLATE 5 MG TABLET PO SCH (09:50)
[2019-08-24 10:57] LABS: FOLATE > 20.00 ng/mL (>2.76)
[2019-08-24] MEDS: 1/2 NORMAL SALINE 1,000 ML IV PRN (13:06)
--- NOTE | 2019-08-24 17:38 | PDOC PROGRESS REPORT ---
Subjective Progress Note for:: 08/24/19 Subjective:: Patient is seen by the bedside, admitted for acute on chronic renal disease,there is no new complaints Reason For Visit: ACUTE ON CHRONIC KIDNYE FAILURE WITH HYPERKALEMIA, Physical Exam Vital Signs: Temp Pulse Resp BP Pulse Ox 97.8 F 66 20 123/69 100 08/24/19 16:14 08/24/19 16:14 08/24/19 16:14 08/24/19 16:14 08/24/19 16:14 Intake & Output 08/23/19 08/24/19 08/25/19 06:59 06:59 06:59 Intake Total 1225 1280 1240 Output Total 1025 400 Balance 1225 255 840 Weight 96.3 kg 97 kg General appearance: PRESENT: no acute distress Respiratory exam: PRESENT: clear to auscultation lele Cardiovascular exam: PRESENT: +S1, +S2 GI/Abdominal exam: PRESENT: soft Neurological exam: PRESENT: alert Results Laboratory Results: 08/24/19 06:30 08/24/19 09:18 08/24/19 08/24/19 08/24/19 06:30 06:30 06:30 WBC 5.5 RBC 3.19 L Hgb 9.8 L Hct 29.9 L MCV 94 MCH 30.7 MCHC 32.7 RDW 17.2 H Plt Count 144 L Retic Count (auto) 0.76 Sodium Cancelled Potassium Cancelled Chloride Cancelled Carbon Dioxide Cancelled Anion Gap Cancelled BUN Cancelled Creatinine Cancelled Est GFR ( Amer) Cancelled Est GFR (Non-Af Amer) Cancelled Glucose Cancelled Calcium Cancelled Iron Cancelled TIBC Cancelled % Saturation Cancelled Ferritin Cancelled Total Bilirubin Cancelled AST Cancelled Alkaline Phosphatase Cancelled Ammonia Cancelled Total Protein Cancelled Albumin Cancelled Vitamin B12 Cancelled Folate Cancelled 08/24/19 08/24/19 09:18 09:18 WBC RBC Hgb Hct MCV MCH MCHC RDW Plt Count Retic Count (auto) Sodium 142.0 Potassium 5.1 H Chloride 106 Carbon Dioxide 25 Anion Gap 11 BUN 105 H Creatinine 4.87 H Est GFR ( Amer) 11 L Est GFR (Non-Af Amer) Glucose 121 H Calcium 9.6 Iron 76.6 TIBC 265 % Saturation 29 Ferritin 457.00 H Total Bilirubin 1.1 AST 48 H Alkaline Phosphatase 533 H Ammonia 29.6 Total Protein 8.0 Albumin 3.7 Vitamin B12 652.0 Folate > 20.00 08/19/19 08/19/19 03:49 03:49 Creatine Kinase < 20 L Troponin I < 0.012 NT-Pro-B Natriuret Pep 9540 H Impressions: Chest X-Ray 08/19/19 10:03 IMPRESSION: Cardiomegaly and vascular congestion. Similar findings were noted on prior study. Abdomen Ultrasound 08/23/19 00:00 IMPRESSION: Borderline hepatomegaly. Normal hepatic and portal veins. Cholelithiasis with slight thickening of the gallbladder wall but a negative sonographic Viera sign. Assessment & Plan - Diagnosis (1) Acute kidney injury Is this a current diagnosis for this admission?: Yes Plan: Continue treatment (2) Cor pulmonale (chronic) Is this a current diagnosis for this admission?: Yes (3) Decubitus ulcer of left heel, stage 4 Is this a current diagnosis for this admission?: Yes - Time Time Spent with patient: 15-24 minutes Level of Care: IMCU
[2019-08-25] MEDS: HEPARIN SOD (PORCINE) 5,000 UNIT/ML 1 ML VIAL SUBCUT SCH ×3 (05:19→23:15)
[2019-08-25] MEDS: HYDRALAZINE HCL 50 MG TABLET PO SCH ×3 (05:21→23:13)
[2019-08-25] MEDS: INSULIN LISPRO 100 UNIT/ML 3 ML VIAL SUBCUT SCH ×4 (08:10→23:15)
[2019-08-25] MEDS: MECLIZINE HCL 25 MG TABLET PO SCH ×3 (10:31→17:55)
[2019-08-25] MEDS: GABAPENTIN 300 MG CAPSULE PO SCH ×2 (10:32→23:16)
[2019-08-25] MEDS: CARVEDILOL 12.5 MG TABLET PO SCH ×2 (10:32→23:18)
[2019-08-25] MEDS: ASCORBIC ACID 500 MG TABLET PO SCH (10:33)
[2019-08-25] MEDS: AMLODIPINE BESYLATE 5 MG TABLET PO SCH (10:33)
[2019-08-25] MEDS: FUROSEMIDE INJ/PF 20 MG/2 ML SDV IV SCH ×2 (10:33→23:12)
[2019-08-25] MEDS: FAMOTIDINE 20 MG TABLET PO SCH ×2 (10:39→17:55)
--- NOTE | 2019-08-25 16:24 | PDOC PROGRESS REPORT ---
Subjective Progress Note for:: 08/25/19 Subjective:: Patient is seen by the bedside, admitted for acute on chronic renal disease,there is no new complaints Reason For Visit: ACUTE ON CHRONIC KIDNYE FAILURE WITH HYPERKALEMIA, Physical Exam Vital Signs: Temp Pulse Resp BP Pulse Ox 97.9 F 69 18 148/88 H 93 08/25/19 07:32 08/25/19 07:32 08/25/19 07:32 08/25/19 07:32 08/25/19 07:32 Intake & Output 08/24/19 08/25/19 08/26/19 06:59 06:59 06:59 Intake Total 1280 1700 1200 Output Total 1025 1950 Balance 255 -250 1200 Weight 97 kg 93.9 kg General appearance: PRESENT: no acute distress Eye exam: PRESENT: PERRLA Respiratory exam: PRESENT: clear to auscultation lele Cardiovascular exam: PRESENT: +S1, +S2 GI/Abdominal exam: PRESENT: soft Results Laboratory Results: 08/24/19 06:30 08/24/19 09:18 08/19/19 08/19/19 03:49 03:49 Creatine Kinase < 20 L Troponin I < 0.012 NT-Pro-B Natriuret Pep 9540 H Impressions: Chest X-Ray 08/19/19 10:03 IMPRESSION: Cardiomegaly and vascular congestion. Similar findings were noted on prior study. Abdomen Ultrasound 08/23/19 00:00 IMPRESSION: Borderline hepatomegaly. Normal hepatic and portal veins. Katherin lithiasis with slight thickening of the gallbladder wall but a negative sonographic Viera sign. Assessment & Plan - Diagnosis (1) Acute kidney injury Is this a current diagnosis for this admission?: Yes Plan: Continue treatment (2) Cor pulmonale (chronic) Is this a current diagnosis for this admission?: Yes (3) Decubitus ulcer of left heel, stage 4 Is this a current diagnosis for this admission?: Yes - Time Time Spent with patient: Less than 15 minutes Level of Care: IMCU
[2019-08-26] MEDS: HYDRALAZINE HCL 50 MG TABLET PO SCH ×3 (05:44→21:19)
[2019-08-26] MEDS: HEPARIN SOD (PORCINE) 5,000 UNIT/ML 1 ML VIAL SUBCUT SCH ×3 (05:47→21:09)
[2019-08-26 06:02] LABS: ANION GAP 12 (5-19); BLOOD UREA NITROGEN 101 mg/dL (7-20); CALCIUM 9.8 mg/dL (8.4-10.2); CARBON DIOXIDE 25 mmol/L (22-30); CHLORIDE 108 mmol/L (98-107); GLUCOSE 116 mg/dL (75-110); POTASSIUM 4.6 mmol/L (3.6-5.0)
[2019-08-26] MEDS: INSULIN LISPRO 100 UNIT/ML 3 ML VIAL SUBCUT SCH ×4 (08:11→21:36)
[2019-08-26] MEDS: MECLIZINE HCL 12.5 MG TABLET PO SCH ×3 (09:16→17:08)
[2019-08-26] MEDS: GABAPENTIN 300 MG CAPSULE PO SCH ×2 (09:16→21:19)
[2019-08-26] MEDS: FUROSEMIDE INJ/PF 20 MG/2 ML SDV IV SCH ×2 (09:16→21:19)
[2019-08-26] MEDS: AMLODIPINE BESYLATE 5 MG TABLET PO SCH (09:16)
[2019-08-26] MEDS: CARVEDILOL 12.5 MG TABLET PO SCH ×2 (09:16→21:16)
[2019-08-26] MEDS: ASCORBIC ACID 500 MG TABLET PO SCH (09:16)
--- NOTE | 2019-08-26 10:18 | PDOC PROGRESS REPORT ---
Subjective Progress Note for:: 08/26/19 Reason For Visit: Patient seen today. She is generally feeling better but complains of mild headache and being dizzy. She denies orthostasis. No complaints of any chest pain shortness of breath or palpitations. Labs and medications were reviewed. Slowly improving creatinine. She is nonoliguric. Physical Exam Vital Signs: Temp Pulse Resp BP Pulse Ox 97.5 F 67 16 151/71 H 95 08/26/19 07:38 08/26/19 07:38 08/26/19 07:38 08/26/19 07:38 08/26/19 07:38 Intake & Output 08/25/19 08/26/19 08/27/19 06:59 06:59 06:59 Intake Total 1700 1662 Output Total 1950 1575 Balance -250 87 Weight 93.9 kg 96.5 kg General appearance: PRESENT: no acute distress Respiratory exam: PRESENT: clear to auscultation lele, decreased breath sounds. ABSENT: crackles Cardiovascular exam: PRESENT: +S1, +S2 GI/Abdominal exam: PRESENT: normal bowel sounds, soft. ABSENT: organomegaly, tenderness Extremities exam: PRESENT: pedal edema - Of 1+ especially on her left leg where she has a heel ulcer. Neurological exam: PRESENT: alert, awake, oriented to person, oriented to place Psychiatric exam: PRESENT: appropriate affect Results Laboratory Results: 08/24/19 06:30 08/26/19 04:28 08/26/19 04:28 Sodium 144.7 Potassium 4.6 Chloride 108 H Carbon Dioxide 25 Anion Gap 12 BUN 101 H Creatinine 4.34 H Est GFR ( Amer) 12 L Glucose 116 H Calcium 9.8 08/19/19 08/19/19 03:49 03:49 Creatine Kinase < 20 L Troponin I < 0.012 NT-Pro-B Natriuret Pep 9540 H Impressions: Chest X-Ray 08/19/19 10:03 IMPRESSION: Cardiomegaly and vascular congestion. Similar findings were noted on prior study. Abdomen Ultrasound 08/23/19 00:00 IMPRESSION: Borderline hepatomegaly. Normal hepatic and portal veins. Cholelithiasis with slight thickening of the gallbladder wall but a negative sonographic Viera sign. Assessment & Plan - Diagnosis (1) Rioxb-lz-arqigln renal failure Qualifiers: Acute renal failure type: unspecified Chronic kidney disease stage: stage 4 (severe) Qualified Code(s): N17.9 - Acute kidney failure, unspecified; N18.4 - Chronic kidney disease, stage 4 (severe) Is this a current diagnosis for this admission?: Yes Plan: Nonoliguric. Slightly improving renal numbers. We will start her on half- normal saline and continue on diuretics at the same time. Monitor. No indications for renal replacements. (2) Acute hyperkalemia Is this a current diagnosis for this admission?: Yes Plan: Resolved. (3) Obstructive jaundice Plan: Follow-up on labs. (4) Cholelithiasis Plan: Status quo. Currently she is not complaining of any abdominal pains. (5) UTI (urinary tract infection) Qualifiers: Urinary tract infection type: site unspecified Hematuria presence: with hematuria Qualified Code(s): N39.0 - Urinary tract infection, site not specified; R31.9 - Hematuria, unspecified Plan: Likely [place] cystitis. (6) Anemia of chronic disease Is this a current diagnosis for this admission?: Yes Plan: Currently stable. Monitor (7) Diabetes mellitus type 2 in obese Is this a current diagnosis for this admission?: Yes Plan: As per PCP. Monitor. (8) HTN (hypertension) Qualifiers: Hypertension type: essential hypertension Qualified Code(s): I10 - Essential (primary) hypertension Plan: Fairly well controlled. Monitor. (9) Cor pulmonale Plan: Status quo. 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
[2019-08-26] MEDS: 1/2 NORMAL SALINE 1,000 ML IV PRN (12:33)
--- NOTE | 2019-08-26 17:01 | PDOC PROGRESS REPORT ---
Subjective Progress Note for:: 08/26/19 Subjective:: Patient denied any chest pain or difficulty with breathing. No abdominal pain, nausea or vomiting. No fever or chills. [employer] Operator input noted. Reason For Visit: ACUTE ON CHRONIC KIDNYE FAILURE WITH HYPERKALEMIA, Physical Exam Vital Signs: Temp Pulse Resp BP Pulse Ox 98.0 F 66 15 136/64 H 91 L 08/26/19 15:44 08/26/19 15:44 08/26/19 15:44 08/26/19 15:44 08/26/19 15:44 Intake & Output 08/25/19 08/26/19 08/27/19 06:59 06:59 06:59 Intake Total 1700 1662 Output Total 1950 1575 Balance -250 87 Weight 93.9 kg 96.5 kg Physical Exam: General appearance: PRESENT: no acute distress, obese Head exam: PRESENT: atraumatic, normocephalic Eye exam: PRESENT: conjunctiva pink. ABSENT: pallor, scleral icterus Respiratory exam: PRESENT: clear to auscultation lele, decreased breath sounds - at lung bases Cardiovascular exam: PRESENT: RRR, +S1, +S2. ABSENT: diastolic murmur, systolic murmur GI/Abdominal exam: PRESENT: normal bowel sounds, soft. ABSENT: distended, guarding, mass, organomegaly, rebound, tenderness Extremities exam: PRESENT: pedal edema - chronic bilateral to legs Neurological exam: PRESENT: alert, awake, oriented to person, oriented to place, oriented to time, oriented to situation Psychiatric exam: PRESENT: appropriate affect, normal mood. ABSENT: homicidal ideation, suicidal ideation Skin exam: PRESENT: dry, warm, other - chronic left foot non healing diabetic foot ulcer Results Laboratory Results: 08/24/19 06:30 08/26/19 04:28 08/26/19 04:28 Sodium 144.7 Potassium 4.6 Chloride 108 H Carbon Dioxide 25 Anion Gap 12 BUN 101 H Creatinine 4.34 H Est GFR ( Amer) 12 L Glucose 116 H Calcium 9.8 08/19/19 08/19/19 03:49 03:49 Creatine Kinase < 20 L Troponin I < 0.012 NT-Pro-B Natriuret Pep 9540 H Impressions: Chest X-Ray 08/19/19 10:03 IMPRESSION: Cardiomegaly and vascular congestion. Similar findings were noted on prior study. Abdomen Ultrasound 08/23/19 00:00 IMPRESSION: Borderline hepatomegaly. Normal hepatic and portal veins. Cholelithiasis with slight thickening of the gallbladder wall but a negative sonographic Viera sign. Assessment & Plan - Diagnosis (1) Acute hyperkalemia Is this a current diagnosis for this admission?: Yes (2) Dnjxp-hy-yihmtsn renal failure Qualifiers: Acute renal failure type: unspecified Chronic kidney disease stage: stage 4 (severe) Qualified Code(s): N17.9 - Acute kidney failure, unspecified; N18.4 - Chronic kidney disease, stage 4 (severe) Is this a current diagnosis for this admission?: Yes (3) Chronic combined systolic and diastolic CHF (congestive heart failure) Is this a current diagnosis for this admission?: Yes (4) Diabetes mellitus type 2 in obese Is this a current diagnosis for this admission?: Yes (5) Anemia of chronic disease Is this a current diagnosis for this admission?: Yes (6) Abdominal pain, chronic, bilateral lower quadrant Is this a current diagnosis for this admission?: Yes (7) Diabetic ulcer of left foot associated with type 2 diabetes mellitus Qualifiers: Diabetic foot ulcer location: heel Non-pressure ulcer stage: unspecified non-pressure ulcer stage Qualified Code(s): E11.621 - Type 2 diabetes mellitus with foot ulcer; L97.429 - Non-pressure chronic ulcer of left heel and midfoot with unspecified severity Is this a current diagnosis for this admission?: Yes (8) Chronic use of opiate for therapeutic purpose Is this a current diagnosis for this admission?: Yes (9) Obesity (BMI 30-39.9) Is this a current diagnosis for this admission?: Yes - Time Time Spent with patient: 25-34 minutes Level of Care: IMCU Medications reviewed and adjusted accordingly: Yes Anticipated discharge: Home with Homehealth, SNF Within: Other - Inpatient Certification Based on my medical assessment, after consideration of the patient's comorbidities, presenting symptoms, or acuity I expect that the services needed warrant INPATIENT care.: Yes I certify that my determination is in accordance with my understanding of Medicare's requirements for reasonable and necessary INPATIENT services [42 CFR 412.3e].: Yes Medical Necessity: Significant Comorbidiites Make Outpatient Treatment Too Risky, Need Close Monitoring Due to Risk of Patient Decompensation, Need For IV Fluids, Need For Continuous Telemetry Monitoring, Risk of Complication if Not Cared For in Hospital, Risk of Diagnosis Which Will Require Inpatient Eval/Care/Monitoring - Plan Summary Plan Summary: We will continue gentle hydration and diuretic therapy. Overall status with slight improvement.
[2019-08-26] MEDS: FAMOTIDINE 20 MG TABLET PO SCH (21:19)
[2019-08-27] MEDS: HEPARIN SOD (PORCINE) 5,000 UNIT/ML 1 ML VIAL SUBCUT SCH ×3 (05:08→21:32)
[2019-08-27] MEDS: HYDRALAZINE HCL 50 MG TABLET PO SCH ×3 (05:10→21:31)
[2019-08-27 07:32] LABS: ALBUMIN 3.6 g/dL (3.5-5.0); ALKALINE PHOSPHATASE 515 U/L (38-126); ANION GAP 10 (5-19); ASPARTATE AMINO TRANSFERASE 35 U/L (14-36); BILIRUBIN,DIRECT 0.6 mg/dL (0.0-0.4); BILIRUBIN,TOTAL 1.1 mg/dL (0.2-1.3); BLOOD UREA NITROGEN 98 mg/dL (7-20); CALCIUM 9.4 mg/dL (8.4-10.2); CARBON DIOXIDE 25 mmol/L (22-30); CHLORIDE 110 mmol/L (98-107); GLUCOSE 92 mg/dL (75-110); POTASSIUM 4.4 mmol/L (3.6-5.0)
[2019-08-27] MEDS: INSULIN LISPRO 100 UNIT/ML 3 ML VIAL SUBCUT SCH ×4 (08:54→21:33)
[2019-08-27] MEDS: FUROSEMIDE INJ/PF 20 MG/2 ML SDV IV SCH (09:37)
[2019-08-27] MEDS: MECLIZINE HCL 12.5 MG TABLET PO SCH ×3 (09:38→17:23)
[2019-08-27] MEDS: CARVEDILOL 12.5 MG TABLET PO SCH ×2 (09:38→21:32)
[2019-08-27] MEDS: AMLODIPINE BESYLATE 5 MG TABLET PO SCH (09:38)
[2019-08-27] MEDS: ASCORBIC ACID 500 MG TABLET PO SCH (09:38)
[2019-08-27] MEDS: GABAPENTIN 300 MG CAPSULE PO SCH ×2 (09:38→21:32)
[2019-08-27] MEDS: 1/2 NORMAL SALINE 1,000 ML IV PRN (09:41)
--- NOTE | 2019-08-27 17:43 | PDOC PROGRESS REPORT ---
Subjective Progress Note for:: 08/27/19 Subjective:: Patient rported itching to eye with watery discharge. redness. No pain. She denied any chest pain or difficulty with breathing. No abdominal pain, nausea or vomiting. No fever or chills. Reason For Visit: ACUTE ON CHRONIC KIDNYE FAILURE WITH HYPERKALEMIA, Physical Exam Vital Signs: Temp Pulse Resp BP Pulse Ox 97.5 F 51 L 15 112/58 L 100 08/27/19 15:32 08/27/19 15:32 08/27/19 15:32 08/27/19 15:32 08/27/19 15:32 Intake & Output 08/26/19 08/27/19 08/28/19 06:59 06:59 06:59 Intake Total 1662 1046 1237 Output Total 1575 1725 300 Balance 87 -679 937 Weight 96.5 kg 98.2 kg Physical Exam: General appearance: PRESENT: no acute distress, obese Head exam: PRESENT: atraumatic, normocephalic Eye exam: PRESENT: conjunctiva pink. ABSENT: pallor, scleral icterus Respiratory exam: PRESENT: clear to auscultation lele, decreased breath sounds - at lung bases Cardiovascular exam: PRESENT: RRR, +S1, +S2. ABSENT: diastolic murmur, systolic murmur GI/Abdominal exam: PRESENT: normal bowel sounds, soft. ABSENT: distended, guarding, mass, organomegaly, rebound, tenderness Extremities exam: PRESENT: pedal edema - chronic bilateral to legs Neurological exam: PRESENT: alert, awake, oriented to person, oriented to place, oriented to time, oriented to situation Psychiatric exam: PRESENT: appropriate affect, normal mood. ABSENT: homicidal ideation, suicidal ideation Skin exam: PRESENT: dry, warm, other - chronic left foot non healing diabetic foot ulcer Results Laboratory Results: 08/24/19 06:30 08/27/19 06:49 08/27/19 06:49 Sodium 145.0 Potassium 4.4 Chloride 110 H Carbon Dioxide 25 Anion Gap 10 BUN 98 H Creatinine 3.96 H Est GFR ( Amer) 14 L Glucose 92 Calcium 9.4 Total Bilirubin 1.1 AST 35 Alkaline Phosphatase 515 H Total Protein 8.0 Albumin 3.6 08/19/19 08/19/19 03:49 03:49 Creatine Kinase < 20 L Troponin I < 0.012 NT-Pro-B Natriuret Pep 9540 H Impressions: Chest X-Ray 08/19/19 10:03 IMPRESSION: Cardiomegaly and vascular congestion. Similar findings were noted on prior study. Abdomen Ultrasound 08/23/19 00:00 IMPRESSION: Borderline hepatomegaly. Normal hepatic and portal veins. Chol elithiasis with slight thickening of the gallbladder wall but a negative sonographic Viera sign. Assessment & Plan - Diagnosis (1) Acute hyperkalemia Is this a current diagnosis for this admission?: Yes (2) Safcv-ry-talftxg renal failure Qualifiers: Acute renal failure type: unspecified Chronic kidney disease stage: stage 4 (severe) Qualified Code(s): N17.9 - Acute kidney failure, unspecified; N18.4 - Chronic kidney disease, stage 4 (severe) Is this a current diagnosis for this admission?: Yes (3) Chronic combined systolic and diastolic CHF (congestive heart failure) Is this a current diagnosis for this admission?: Yes (4) Diabetes mellitus type 2 in obese Is this a current diagnosis for this admission?: Yes (5) Anemia of chronic disease Is this a current diagnosis for this admission?: Yes (6) Abdominal pain, chronic, bilateral lower quadrant Is this a current diagnosis for this admission?: Yes (7) Diabetic ulcer of left foot associated with type 2 diabetes mellitus Qualifiers: Diabetic foot ulcer location: heel Non-pressure ulcer stage: unspecified non-pressure ulcer stage Qualified Code(s): E11.621 - Type 2 diabetes mellitus with foot ulcer; L97.429 - Non-pressure chronic ulcer of left heel and midfoot with unspecified severity Is this a current diagnosis for this admission?: Yes (8) Chronic use of opiate for therapeutic purpose Is this a current diagnosis for this admission?: Yes (9) Obesity (BMI 30-39.9) Is this a current diagnosis for this admission?: Yes - Time Time Spent with patient: 25-34 minutes Level of Care: IMCU Medications reviewed and adjusted accordingly: Yes Anticipated discharge: SNF Within: Other - Inpatient Certification Based on my medical assessment, after consideration of the patient's comorbidities, presenting symptoms, or acuity I expect that the services needed warrant INPATIENT care.: Yes I certify that my determination is in accordance with my understanding of Medicare's requirements for reasonable and necessary INPATIENT services [42 CFR 412.3e].: Yes Medical Necessity: Significant Comorbidiites Make Outpatient Treatment Too Risky, Need Close Monitoring Due to Risk of Patient Decompensation, Need For IV Fluids, Need For Continuous Telemetry Monitoring, Risk of Complication if Not Cared For in Hospital, Risk of Diagnosis Which Will Require Inpatient Eval/Care/Monitoring Post Hospital Care: D/C or Transfer Summary - Plan Summary Plan Summary: Continue current medication management. Wound dressing with saline cleaning and xeroform gauze dressing daily.
--- NOTE | 2019-08-27 19:09 | PDOC PROGRESS REPORT ---
Subjective Progress Note for:: 08/27/19 Reason For Visit: Generally feeling better though a bit sleepy. She also mentions some itchy eyes. Denies any history of chest pain shortness of breath or headaches. Labs and medications were reviewed. Labs shows slowly improving renal numbers. Physical Exam Vital Signs: Temp Pulse Resp BP Pulse Ox 97.5 F 51 L 15 112/58 L 100 08/27/19 15:32 08/27/19 15:32 08/27/19 15:32 08/27/19 15:32 08/27/19 15:32 Intake & Output 08/26/19 08/27/19 08/28/19 06:59 06:59 06:59 Intake Total 1662 1046 1362 Output Total 1575 1725 600 Balance 87 -679 762 Weight 96.5 kg 98.2 kg General appearance: PRESENT: no acute distress, disheveled Eye exam: PRESENT: conjunctiva pink Respiratory exam: PRESENT: clear to auscultation lele, decreased breath sounds. ABSENT: crackles Cardiovascular exam: PRESENT: +S1, +S2 GI/Abdominal exam: PRESENT: normal bowel sounds, soft. ABSENT: organomegaly, tenderness Extremities exam: PRESENT: pedal edema - 1+ on the left side and trace on the right side. Neurological exam: PRESENT: alert, awake, oriented to person, oriented to place Results Laboratory Results: 08/24/19 06:30 08/27/19 06:49 08/27/19 06:49 Sodium 145.0 Potassium 4.4 Chloride 110 H Carbon Dioxide 25 Anion Gap 10 BUN 98 H Creatinine 3.96 H Est GFR ( Amer) 14 L Glucose 92 Calcium 9.4 Total Bilirubin 1.1 AST 35 Alkaline Phosphatase 515 H Total Protein 8.0 Albumin 3.6 08/19/19 08/19/19 03:49 03:49 Creatine Kinase < 20 L Troponin I < 0.012 NT-Pro-B Natriuret Pep 9540 H Impressions: Chest X-Ray 08/19/19 10:03 IMPRESSION: Cardiomegaly and vascular congestion. Similar findings were noted on prior study. Abdomen Ultrasound 08/23/19 00:00 IMPRESSION: Borderline hepatomegaly. Normal hepatic and portal veins. Cholelithiasis with slight thickening of the gallbladder wall but a negative sonographic Viera sign. Assessment & Plan - Diagnosis (1) Awftk-vy-vrvrvye renal failure Qualifiers: Acute renal failure type: unspecified Chronic kidney disease stage: stage 4 (severe) Qualified Code(s): N17.9 - Acute kidney failure, unspecified; N18.4 - Chronic kidney disease, stage 4 (severe) Is this a current diagnosis for this admission?: Yes Plan: Nonoliguric. Improving renal numbers. We will start her on half-normal saline and cut back on diuretics at the same time. Monitor. No indications for renal replacements.No indications for renal replacements. (2) Acute hyperkalemia Is this a current diagnosis for this admission?: Yes Plan: Resolved. (3) Obstructive jaundice Plan: Follow-up on labs.I am going to leave further management of this to Dr. Bess. (4) Cholelithiasis Plan: Status quo. Currently she is not complaining of any abdominal pains. (5) UTI (urinary tract infection) Qualifiers: Urinary tract infection type: site unspecified Hematuria presence: with hematuria Qualified Code(s): N39.0 - Urinary tract infection, site not specifi ed; R31.9 - Hematuria, unspecified Plan: Likely [place] cystitis. (6) Anemia of chronic disease Is this a current diagnosis for this admission?: Yes Plan: Currently stable. Monitor (7) Diabetes mellitus type 2 in obese Is this a current diagnosis for this admission?: Yes Plan: As per PCP. Monitor. (8) HTN (hypertension) Qualifiers: Hypertension type: essential hypertension Qualified Code(s): I10 - Essential (primary) hypertension Plan: Well controlled. Monitor. (9) Cor pulmonale Plan: Status quo. 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
[2019-08-27] MEDS: FAMOTIDINE 20 MG TABLET PO SCH (21:32)
[2019-08-27] MEDS: OLOPATADINE HCL 0.1% OPH SOLN 5 ML OU SCH (21:32)
[2019-08-28] MEDS: 1/2 NORMAL SALINE 1,000 ML IV PRN ×2 (05:46→17:30)
[2019-08-28] MEDS: HYDRALAZINE HCL 50 MG TABLET PO SCH ×3 (05:47→21:33)
[2019-08-28] MEDS: HEPARIN SOD (PORCINE) 5,000 UNIT/ML 1 ML VIAL SUBCUT SCH ×3 (05:47→21:23)
[2019-08-28 06:03] LABS: ALBUMIN 3.5 g/dL (3.5-5.0); ALKALINE PHOSPHATASE 464 U/L (38-126); ANION GAP 9 (5-19); ASPARTATE AMINO TRANSFERASE 34 U/L (14-36); BILIRUBIN,DIRECT 0.6 mg/dL (0.0-0.4); BILIRUBIN,TOTAL 1.1 mg/dL (0.2-1.3); BLOOD UREA NITROGEN 99 mg/dL (7-20); CALCIUM 9.6 mg/dL (8.4-10.2); CARBON DIOXIDE 25 mmol/L (22-30); CHLORIDE 109 mmol/L (98-107); GLUCOSE 108 mg/dL (75-110); POTASSIUM 4.6 mmol/L (3.6-5.0); TOTAL PROTEIN 7.8 g/dL (6.3-8.2)
[2019-08-28] MEDS: INSULIN LISPRO 100 UNIT/ML 3 ML VIAL SUBCUT SCH ×4 (10:29→21:33)
[2019-08-28] MEDS: FUROSEMIDE INJ/PF 20 MG/2 ML SDV IV SCH (10:41)
[2019-08-28] MEDS: AMLODIPINE BESYLATE 5 MG TABLET PO SCH (10:41)
[2019-08-28] MEDS: GABAPENTIN 300 MG CAPSULE PO SCH ×2 (10:41→21:33)
[2019-08-28] MEDS: ASCORBIC ACID 500 MG TABLET PO SCH (10:41)
[2019-08-28] MEDS: MECLIZINE HCL 12.5 MG TABLET PO SCH ×3 (10:45→17:30)
[2019-08-28] MEDS: OLOPATADINE HCL 0.1% OPH SOLN 5 ML OU SCH (10:45)
[2019-08-28] MEDS: CARVEDILOL 12.5 MG TABLET PO SCH ×2 (11:45→21:26)
--- NOTE | 2019-08-28 17:58 | PDOC PROGRESS REPORT ---
Subjective Progress Note for:: 08/28/19 Subjective:: Patient reported improvement in her itching and red eyes. She denied any eye pain. She denied any chest pain or difficulty with breathing. No abdominal pain, nausea or vomiting. No fever or chills. Reason For Visit: ACUTE ON CHRONIC KIDNYE FAILURE WITH HYPERKALEMIA, Physical Exam Vital Signs: Temp Pulse Resp BP Pulse Ox 97.4 F 58 L 16 129/73 H 100 08/28/19 11:47 08/28/19 14:00 08/28/19 11:47 08/28/19 11:47 08/28/19 11:47 Intake & Output 08/27/19 08/28/19 08/29/19 06:59 06:59 06:59 Intake Total 1046 2562 312 Output Total 1725 900 Balance -679 1662 312 Weight 98.2 kg 100.5 kg Physical Exam: General appearance: PRESENT: no acute distress, obese Head exam: PRESENT: atraumatic, normocephalic Eye exam: PRESENT: conjunctiva pink. ABSENT: pallor, scleral icterus Respiratory exam: PRESENT: clear to auscultation lele, decreased breath sounds - at lung bases Cardiovascular exam: PRESENT: RRR, +S1, +S2. ABSENT: diastolic murmur, systolic murmur GI/Abdominal exam: PRESENT: normal bowel sounds, soft. ABSENT: distended, guarding, mass, organomegaly, rebound, tenderness Extremities exam: PRESENT: pedal edema - chronic bilateral to legs Neurological exam: PRESENT: alert, awake, oriented to person, oriented to place, oriented to time, oriented to situation Psychiatric exam: PRESENT: appropriate affect, normal mood. ABSENT: homicidal ideation, suicidal ideation Skin exam: PRESENT: dry, warm, other - chronic left foot non healing diabetic foot ulcer Results Laboratory Results: 08/24/19 06:30 08/28/19 05:24 08/28/19 05:24 Sodium 143.3 Potassium 4.6 Chloride 109 H Carbon Dioxide 25 Anion Gap 9 BUN 99 H Creatinine 4.05 H Est GFR ( Amer) 13 L Glucose 108 Calcium 9.6 Total Bilirubin 1.1 AST 34 Alkaline Phosphatase 464 H Total Protein 7.8 Albumin 3.5 08/19/19 08/19/19 03:49 03:49 Creatine Kinase < 20 L Troponin I < 0.012 NT-Pro-B Natriuret Pep 9540 H Impressions: Chest X-Ray 08/19/19 10:03 IMPRESSION: Cardiomegaly and vascular congestion. Similar findings were noted on prior study. Abdomen Ultrasound 08/23/19 00:00 IMPRESSION: Borderline hepatomegaly. Normal hepatic and portal veins. Cholelithiasis with slight thickening of the gallbladder wall but a negative sonographic Viera sign. Assessment & Plan - Diagnosis (1) Acute hyperkalemia Is this a current diagnosis for this admission?: Yes (2) Jrmay-fl-omqzraz renal failure Qualifiers: Acute renal failure type: unspecified Chronic kidney disease stage: stage 4 (severe) Qualified Code(s): N17.9 - Acute kidney failure, unspecified; N18.4 - Chronic kidney disease, stage 4 (severe) Is this a current diagnosis for this admission?: Yes (3) Chronic combined systolic and diastolic CHF (congestive heart failure) Is this a current diagnosis for this admission?: Yes (4) Diabetes mellitus type 2 in obese Is this a current diagnosis for this admission?: Yes (5) Anemia of chronic disease Is this a current diagnosis for this admission?: Yes (6) Abdominal pain, chronic, bilateral lower quadrant Is this a current diagnosis for this admission?: Yes (7) Diabetic ulcer of left foot associated with type 2 diabetes mellitus Qualifiers: Diabetic foot ulcer location: heel Non-pressure ulcer stage: unspecified non-pressure ulcer stage Qualified Code(s): E11.621 - Type 2 diabetes mellitus with foot ulcer; L97.429 - Non-pressure chronic ulcer of left heel and midfoot with unspecified severity Is this a current diagnosis for this admission?: Yes Plan: Multibacterial benjie growth is suggestive of possible contamination. We will continue daily and prn local wound care management for now. (8) Chronic use of opiate for therapeutic purpose Is this a current diagnosis for this admission?: Yes (9) Obesity (BMI 30-39.9) Is this a current diagnosis for this admission?: Yes (10) [place] cystitis Is this a current diagnosis for this admission?: Yes Plan: Start on Diflucan therapy for her culture positive significant [place] species growth on her urine culture. - Time Time Spent with patient: 25-34 minutes Level of Care: IMCU Medications reviewed and adjusted accordingly: Yes Anticipated discharge: SNF Within: Other - Inpatient Certification Based on my medical assessment, after consideration of the patient's comorbidities, presenting symptoms, or acuity I expect that the services needed warrant INPATIENT care.: Yes I certify that my determination is in accordance with my understanding of Medicare's requirements for reasonable and necessary INPATIENT services [42 CFR 412.3e].: Yes Medical Necessity: Significant Comorbidiites Make Outpatient Treatment Too Risky, Need Close Monitoring Due to Risk of Patient Decompensation, Need For IV Fluids, Need For Continuous Telemetry Monitoring, Risk of Complication if Not Cared For in Hospital, Risk of Diagnosis Which Will Require Inpatient Eval/Care/Monitoring Post Hospital Care: D/C or Transfer Summary - Plan Summary Plan Summary: Patient will receive now dose of IV Diflucan 200 mg and continue oral therapy 100 mg daily x 2 weeks for Candidal cystitis. Continue all other current medication management.
[2019-08-28] MEDS ORDERED: FLUCONAZOLE 200 MG/NS RTU 200 MG/100 ML RTUPB IV ONE (18:30)
[2019-08-28] MEDS: FAMOTIDINE 20 MG TABLET PO SCH (21:33)
--- NOTE | 2019-08-28 22:49 | PDOC PROGRESS REPORT ---
Subjective Progress Note for:: 08/28/19 Reason For Visit: Patient seen today.She denies any specific complaints of chest pain or shortness of breath unless the obviously exertional and then she feels a bit short winded. She is making good amount of urine output. Labs and medications reviewed. Physical Exam Vital Signs: Temp Pulse Resp BP Pulse Ox 97.6 F 55 L 16 119/60 97 08/28/19 19:50 08/28/19 19:50 08/28/19 19:50 08/28/19 19:50 08/28/19 19:50 Intake & Output 08/27/19 08/28/19 08/29/19 06:59 06:59 06:59 Intake Total 1046 2562 1323 Output Total 1725 900 380 Balance -679 1662 943 Weight 98.2 kg 100.5 kg General appearance: PRESENT: no acute distress Respiratory exam: PRESENT: clear to auscultation lele, decreased breath sounds. ABSENT: crackles Cardiovascular exam: PRESENT: +S1, +S2 GI/Abdominal exam: PRESENT: normal bowel sounds, soft. ABSENT: organomegaly, tenderness Extremities exam: PRESENT: pedal edema - 1+ of left and trace + on right. Neurological exam: PRESENT: alert, awake, oriented to person Results Laboratory Results: 08/24/19 06:30 08/28/19 05:24 08/28/19 05:24 Sodium 143.3 Potassium 4.6 Chloride 109 H Carbon Dioxide 25 Anion Gap 9 BUN 99 H Creatinine 4.05 H Est GFR ( Amer) 13 L Glucose 108 Calcium 9.6 Total Bilirubin 1.1 AST 34 Alkaline Phosphatase 464 H Total Protein 7.8 Albumin 3.5 08/19/19 08/19/19 03:49 03:49 Creatine Kinase < 20 L Troponin I < 0.012 NT-Pro-B Natriuret Pep 9540 H Impressions: Chest X-Ray 08/19/19 10:03 IMPRESSION: Cardiomegaly and vascular congestion. Similar findings were noted on prior study. Abdomen Ultrasound 08/23/19 00:00 IMPRESSION: Borderline hepatomegaly. Normal hepatic and portal veins. Cholelithiasis with slight thickening of the gallbladder wall but a negative sonographic Viera sign. Assessment & Plan - Diagnosis (1) [id number] renal failure Qualifiers: Acute renal failure type: unspecified Chronic kidney disease stage: stage 4 (severe) Qualified Code(s): N17.9 - Acute kidney failure, unspecified; N18.4 - Chronic kidney disease, stage 4 (severe) Is this a current diagnosis for this admission?: Yes Plan: Nonoliguric. Improving renal numbers. Continue on current guidelines. Monitor. No indications for renal replacements. (2) Acute hyperkalemia Is this a current diagnosis for this admission?: Yes Plan: Resolved. (3) Obstructive jaundice Plan: Follow-up on labs.I am going to leave further management of this to Dr. Bess. (4) Cholelithiasis Plan: Status quo. Currently she is not complaining of any abdominal pains. (5) UTI (urinary tract infection) Qualifiers: Urinary tract infection type: site unspecified Hematuria presence: with hematuria Qualified Code(s): N39.0 - Urinary tract infection, site not specified; R31.9 - Hematuria, unspecified Plan: Likely [place] cystitis. (6) Anemia of chronic disease Is this a current diagnosis for this admission?: Yes Plan: Currently stable. Monitor (7) Diabetes mellitus type 2 in obese Is this a current diagnosis for this admission?: Yes Plan: As per PCP. Monitor. (8) HTN (hypertension) Qualifiers: Hypertension type: essential hypertension Qualified Code(s): I10 - Essential (primary) hypertension Plan: Well controlled. Monitor. (9) Cor pulmonale Plan: Status quo. 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
[2019-08-29] MEDS: HEPARIN SOD (PORCINE) 5,000 UNIT/ML 1 ML VIAL SUBCUT SCH ×3 (05:05→21:51)
[2019-08-29] MEDS: HYDRALAZINE HCL 50 MG TABLET PO SCH ×3 (05:07→21:50)
[2019-08-29] MEDS: 1/2 NORMAL SALINE 1,000 ML IV PRN (05:35)
[2019-08-29 05:59] LABS: ALBUMIN 3.7 g/dL (3.5-5.0); ALKALINE PHOSPHATASE 520 U/L (38-126); ANION GAP 9 (5-19); ASPARTATE AMINO TRANSFERASE 33 U/L (14-36); BILIRUBIN,DIRECT 0.9 mg/dL (0.0-0.4); BILIRUBIN,TOTAL 1.4 mg/dL (0.2-1.3); BLOOD UREA NITROGEN 97 mg/dL (7-20); CALCIUM 9.3 mg/dL (8.4-10.2); CARBON DIOXIDE 24 mmol/L (22-30); CHLORIDE 109 mmol/L (98-107); GLUCOSE 124 mg/dL (75-110); POTASSIUM 4.8 mmol/L (3.6-5.0); TOTAL PROTEIN 8.1 g/dL (6.3-8.2)
[2019-08-29] MEDS: INSULIN LISPRO 100 UNIT/ML 3 ML VIAL SUBCUT SCH ×4 (09:35→22:50)
[2019-08-29] MEDS: ASCORBIC ACID 500 MG TABLET PO SCH (10:04)
[2019-08-29] MEDS: MECLIZINE HCL 12.5 MG TABLET PO SCH ×3 (10:04→17:45)
[2019-08-29] MEDS: FUROSEMIDE INJ/PF 20 MG/2 ML SDV IV SCH (10:04)
[2019-08-29] MEDS: FLUCONAZOLE 100 MG TABLET PO SCH (10:04)
[2019-08-29] MEDS: AMLODIPINE BESYLATE 5 MG TABLET PO SCH (10:04)
[2019-08-29] MEDS: GABAPENTIN 300 MG CAPSULE PO SCH ×2 (10:04→21:50)
[2019-08-29] MEDS: OLOPATADINE HCL 0.1% OPH SOLN 5 ML OU SCH (10:05)
[2019-08-29] MEDS: CARVEDILOL 12.5 MG TABLET PO SCH ×2 (10:05→21:50)
--- NOTE | 2019-08-29 13:48 | PDOC PROGRESS REPORT ---
Subjective Progress Note for:: 08/29/19 Reason For Visit: Patient seen today. Generally feeling better and looks like she is making improvements on a daily basis. Good appetite without issues or nausea vomiting. Labs and medications were reviewed that shows slowly improving renal numbers. She is making good urine output. Physical Exam Vital Signs: Temp Pulse Resp BP Pulse Ox 97.4 F 57 L 16 127/70 H 98 08/29/19 11:54 08/29/19 11:54 08/29/19 11:54 08/29/19 11:54 08/29/19 11:54 Intake & Output 08/28/19 08/29/19 08/30/19 06:59 06:59 06:59 Intake Total 2562 2429 Output Total 900 805 Balance 1662 1624 Weight 100.5 kg 106.1 kg General appearance: PRESENT: no acute distress Respiratory exam: PRESENT: clear to auscultation lele, decreased breath sounds. ABSENT: crackles Cardiovascular exam: PRESENT: +S1, +S2 GI/Abdominal exam: PRESENT: normal bowel sounds, soft. ABSENT: organomegaly, tenderness Extremities exam: PRESENT: pedal edema - 1+ on the left side and trace on the r ight side. Neurological exam: PRESENT: alert, awake, oriented to person, oriented to place Psychiatric exam: PRESENT: appropriate affect Results Laboratory Results: 08/24/19 06:30 08/29/19 05:29 08/29/19 05:29 Sodium 142.2 Potassium 4.8 Chloride 109 H Carbon Dioxide 24 Anion Gap 9 BUN 97 H Creatinine 3.77 H Est GFR ( Amer) 15 L Glucose 124 H Calcium 9.3 Total Bilirubin 1.4 H AST 33 Alkaline Phosphatase 520 H Total Protein 8.1 Albumin 3.7 08/19/19 08/19/19 03:49 03:49 Creatine Kinase < 20 L Troponin I < 0.012 NT-Pro-B Natriuret Pep 9540 H Impressions: Chest X-Ray 08/19/19 10:03 IMPRESSION: Cardiomegaly and vascular congestion. Similar findings were noted on prior study. Abdomen Ultrasound 08/23/19 00:00 IMPRESSION: Borderline hepatomegaly. Normal hepatic and portal veins. Cholelithiasis with slight thickening of the gallbladder wall but a negative sonographic Viera sign. Assessment & Plan - Diagnosis (1) Hifno-kd-zniudzd renal failure Qualifiers: Acute renal failure type: unspecified Chronic kidney disease stage: stage 4 (severe) Qualified Code(s): N17.9 - Acute kidney failure, unspecified; N18.4 - Chronic kidney disease, stage 4 (severe) Is this a current diagnosis for this admission?: Yes Plan: Nonoliguric. Improving renal numbers. Continue on current guidelines. Monitor. No indications for renal replacements. (2) Acute hyperkalemia Is this a current diagnosis for this admission?: Yes Plan: Resolved. (3) Obstructive jaundice Plan: Follow-up on labs.I am going to leave further management of this to Dr. Bess. (4) Cholelithiasis Plan: Status quo. Currently she is not complaining of any abdominal pains. (5) UTI (urinary tract infection) Qualifiers: Urinary tract infection type: site unspecified Hematuria presence: with hematuria Qualified Code(s): N39.0 - Urinary tract infection, site not specified; R31.9 - Hematuria, unspecified Plan: Likely [place] cystitis. (6) Anemia of chronic disease Is this a current diagnosis for this admission?: Yes Plan: Currently stable. Will check labs in the a.m. Monitor (7) Diabetes mellitus type 2 in obese Is this a current diagnosis for this admission?: Yes Plan: As per PCP. Monitor. (8) HTN (hypertension) Qualifiers: Hypertension type: essential hypertension Qualified Code(s): I10 - Essential (primary) hypertension Plan: Well controlled. Monitor. (9) Cor pulmonale Plan: Status quo. 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
[2019-08-29] MEDS: FAMOTIDINE 20 MG TABLET PO SCH (21:50)
--- NOTE | 2019-08-29 21:55 | PDOC PROGRESS REPORT ---
Subjective Progress Note for:: 08/29/19 Subjective:: Patient expressed concern about her differential left breast and abdominal swelling today. She denied any associated breast pain. There may be associated dependency contribution due to her laying more towards her left side. She denied any chest pain or difficulty with breathing. No abdominal pain, nausea or vomiting. No fever or chills. Reason For Visit: ACUTE ON CHRONIC KIDNYE FAILURE WITH HYPERKALEMIA, Physical Exam Vital Signs: Temp Pulse Resp BP Pulse Ox 97.4 F 58 L 16 127/70 H 98 08/29/19 11:54 08/29/19 14:00 08/29/19 11:54 08/29/19 11:54 08/29/19 11:54 Intake & Output 08/28/19 08/29/19 08/30/19 06:59 06:59 06:59 Intake Total 2562 2429 755 Output Total 900 805 450 Balance 1662 1624 305 Weight 100.5 kg 106.1 kg Physical Exam: General appearance: PRESENT: no acute distress, obese Head exam: PRESENT: atraumatic, normocephalic Eye exam: PRESENT: conjunctiva pink. ABSENT: pallor, scleral icterus Respiratory exam: PRESENT: clear to auscultation lele, decreased breath sounds - at lung bases Cardiovascular exam: PRESENT: RRR, +S1, +S2. ABSENT: diastolic murmur, systolic murmur GI/Abdominal exam: PRESENT: normal bowel sounds, soft. ABSENT: distended, guarding, mass, organomegaly, rebound, tenderness Extremities exam: PRESENT: pedal edema - chronic bilateral to legs, left breast and abdominal wall edema Neurological exam: PRESENT: alert, awake, oriented to person, oriented to place, oriented to time, oriented to situation Psychiatric exam: PRESENT: appropriate affect, normal mood. ABSENT: homicidal ideation, suicidal ideation Skin exam: PRESENT: dry, warm, other - chronic left foot non healing diabetic foot ulcer Results Laboratory Results: 08/24/19 06:30 08/29/19 05:29 08/29/19 05:29 Sodium 142.2 Potassium 4.8 Chloride 109 H Carbon Dioxide 24 Anion Gap 9 BUN 97 H Creatinine 3.77 H Est GFR ( Amer) 15 L Glucose 124 H Calcium 9.3 Total Bilirubin 1.4 H AST 33 Alkaline Phosphatase 520 H Total Protein 8.1 Albumin 3.7 08/19/19 08/19/19 03:49 03:49 Creatine Kinase < 20 L Troponin I < 0.012 NT-Pro-B Natriuret Pep 9540 H Impressions: Chest X-Ray 08/19/19 10:03 IMPRESSION: Cardiomegaly and vascular congestion. Similar findings were noted on prior study. Abdomen Ultrasound 08/23/19 00:00 IMPRESSION: Borderline hepatomegaly. Normal hepatic and portal veins. Cholelithiasis with slight thickening of the gallbladder wall but a negative sonographic Viera sign. Assessment & Plan - Diagnosis (1) Acute hyperkalemia Is this a current diagnosis for this admission?: Yes (2) Ddjnw-jo-ileppop renal failure Qualifiers: Acute renal failure type: unspecified Chronic kidney disease stage: stage 4 (severe) Qualified Code(s): N17.9 - Acute kidney failure, unspecified; N18.4 - Chronic kidney disease, stage 4 (severe) Is this a current diagnosis for this admission?: Yes (3) Chronic combined systolic and diastolic CHF (congestive heart failure) Is this a current diagnosis for this admission?: Yes (4) Diabetes mellitus type 2 in obese Is this a current diagnosis for this admission?: Yes (5) Anemia of chronic disease Is this a current diagnosis for this admission?: Yes (6) Abdominal pain, chronic, bilateral lower quadrant Is this a current diagnosis for this admission?: Yes (7) Diabetic ulcer of left foot associated with type 2 diabetes mellitus Qualifiers: Diabetic foot ulcer location: heel Non-pressure ulcer stage: unspecified non-pressure ulcer stage Qualified Code(s): E11.621 - Type 2 diabetes mellitus with foot ulcer; L97.429 - Non-pressure chronic ulcer of left heel and midfoot with unspecified severity Is this a current diagnosis for this admission?: Yes (8) Chronic use of opiate for therapeutic purpose Is this a current diagnosis for this admission?: Yes (9) Obesity (BMI 30-39.9) Is this a current diagnosis for this admission?: Yes (10) [place] cystitis Is this a current diagnosis for this admission?: Yes - Time Time Spent with patient: 25-34 minutes Level of Care: IMCU Medications reviewed and adjusted accordingly: Yes Anticipated discharge: SNF Within: Other - Inpatient Certification Based on my medical assessment, after consideration of the patient's comorbidities, presenting symptoms, or acuity I expect that the services needed warrant INPATIENT care.: Yes I certify that my determination is in accordance with my understanding of Medicare's requirements for reasonable and necessary INPATIENT services [42 CFR 412.3e].: Yes Medical Necessity: Significant Comorbidiites Make Outpatient Treatment Too Risky, Need Close Monitoring Due to Risk of Patient Decompensation, Need For IV Fluids, Need For Continuous Telemetry Monitoring, Risk of Complication if Not Cared For in Hospital, Risk of Diagnosis Which Will Require Inpatient Eval/Care/Monitoring Post Hospital Care: D/C or Transfer Summary - Plan Summary Plan Summary: Continue current medication management. D/C IV fluid. I will discuss further issue of fluid increasing edema with nephrology group.
[2019-08-30] MEDS: HYDRALAZINE HCL 50 MG TABLET PO SCH ×3 (05:20→22:58)
[2019-08-30] MEDS: HEPARIN SOD (PORCINE) 5,000 UNIT/ML 1 ML VIAL SUBCUT SCH ×3 (05:21→22:47)
[2019-08-30 05:42] LABS: ALBUMIN 3.7 g/dL (3.5-5.0); ALKALINE PHOSPHATASE 535 U/L (38-126); ANION GAP 9 (5-19); ASPARTATE AMINO TRANSFERASE 34 U/L (14-36); BILIRUBIN,DIRECT 0.8 mg/dL (0.0-0.4); BILIRUBIN,TOTAL 1.3 mg/dL (0.2-1.3); BLOOD UREA NITROGEN 101 mg/dL (7-20); CALCIUM 9.6 mg/dL (8.4-10.2); CARBON DIOXIDE 24 mmol/L (22-30); CHLORIDE 110 mmol/L (98-107); GLUCOSE 101 mg/dL (75-110); POTASSIUM 4.7 mmol/L (3.6-5.0); TOTAL PROTEIN 8.2 g/dL (6.3-8.2)
[2019-08-30] MEDS: INSULIN LISPRO 100 UNIT/ML 3 ML VIAL SUBCUT SCH ×4 (09:21→22:58)
[2019-08-30] MEDS: CARVEDILOL 12.5 MG TABLET PO SCH ×2 (09:46→22:51)
[2019-08-30] MEDS: FUROSEMIDE INJ/PF 20 MG/2 ML SDV IV SCH (09:46)
[2019-08-30] MEDS: FLUCONAZOLE 100 MG TABLET PO SCH (09:46)
[2019-08-30] MEDS: MECLIZINE HCL 12.5 MG TABLET PO SCH ×3 (09:46→18:07)
[2019-08-30] MEDS: GABAPENTIN 300 MG CAPSULE PO SCH ×2 (09:46→22:58)
[2019-08-30] MEDS: AMLODIPINE BESYLATE 5 MG TABLET PO SCH (09:46)
[2019-08-30] MEDS: ASCORBIC ACID 500 MG TABLET PO SCH (09:46)
[2019-08-30] MEDS: OLOPATADINE HCL 0.1% OPH SOLN 5 ML OU SCH (09:47)
--- NOTE | 2019-08-30 11:30 | PDOC PROGRESS REPORT ---
Subjective Progress Note for:: 08/30/19 Reason For Visit: Patient seen today. She is continuing to feel better. Good appetite without history nausea vomiting. She denies any history of chest pains or shortness of breath as she laying down most of the times. Labs and medications were reviewed. She is nonoliguric. She denies any complaints of of any pains around her right heel. No history of fever or chills. Physical Exam Vital Signs: Temp Pulse Resp BP Pulse Ox 97.6 F 60 16 130/65 H 92 08/30/19 07:54 08/30/19 07:54 08/30/19 07:54 08/30/19 07:54 08/30/19 07:54 Intake & Output 08/29/19 08/30/19 08/31/19 06:59 06:59 06:59 Intake Total 2429 1976 Output Total 805 1075 Balance 1624 901 Weight 106.1 kg 102.5 kg General appearance: PRESENT: no acute distress Respiratory exam: PRESENT: clear to auscultation lele, decreased breath sounds. ABSENT: crackles Cardiovascular exam: PRESENT: +S1, +S2 GI/Abdominal exam: PRESENT: normal bowel sounds, soft. ABSENT: organomegaly, tenderness Extremities exam: PRESENT: pedal edema - 1+ of her left leg and trace on the right side. Neurological exam: PRESENT: alert, awake, oriented to person, oriented to place Psychiatric exam: PRESENT: appropriate affect Results Laboratory Results: 08/24/19 06:30 08/30/19 04:46 08/30/19 04:46 Sodium 143.2 Potassium 4.7 Chloride 110 H Carbon Dioxide 24 Anion Gap 9 BUN 101 H Creatinine 3.67 H Est GFR ( Amer) 15 L Glucose 101 Calcium 9.6 Total Bilirubin 1.3 AST 34 Alkaline Phosphatase 535 H Total Protein 8.2 Albumin 3.7 08/19/19 08/19/19 03:49 03:49 Creatine Kinase < 20 L Troponin I < 0.012 NT-Pro-B Natriuret Pep 9540 H Impressions: Chest X-Ray 08/19/19 10:03 IMPRESSION: Cardiomegaly and vascular congestion. Similar findings were noted on prior study. Abdomen Ultrasound 08/23/19 00:00 IMPRESSION: Borderline hepatomegaly. Normal hepatic and portal veins. Cholelithiasis with slight thickening of the gallbladder wall but a negative sonographic Viera sign. Assessment & Plan - Diagnosis (1) Sqoyu-tj-yovohug renal failure Qualifiers: Acute renal failure type: unspecified Chronic kidney disease stage: stage 4 (severe) Qualified Code(s): N17.9 - Acute kidney failure, unspecified; N18.4 - Chronic kidney disease, stage 4 (severe) Is this a current diagnosis for this admission?: Yes Plan: Nonoliguric. Improving renal numbers.However it seems to be rather slow. Wonder if there is any contributing factors from possible chronic cholecystitis even though she is currently asymptomatic and possibly any underlying chronic infection of her right heel. We will repeat a CBC with differential. Besides that she has obviously got clinically moderately severe pulmonary hypertension.Continue on current guidelines. Monitor. No indications for renal replacements. (2) Acute hyperkalemia Is this a current diagnosis for this admission?: Yes Plan: Resolved. (3) Obstructive jaundice Plan: Follow-up on labs.I am going to leave further management of this to Dr. Bess. (4) Cholelithiasis Plan: Status quo. Abdominal ultrasound showed features suggestive of choledocholithiasis with thickened gallbladder. Currently she is not complaining of any abdominal pains. (5) UTI (urinary tract infection) Qualifiers: Urinary tract infection type: site unspecified Hematuria presence: with hematuria Qualified Code(s): N39.0 - Urinary tract infection, site not specified; R31.9 - Hematuria, unspecified Plan: Likely [place] cystitis. (6) Anemia of chronic disease Is this a current diagnosis for this admission?: Yes Plan: Currently stable. Will check labs in the a.m. Monitor (7) Diabetes mellitus type 2 in obese Is this a current diagnosis for this admission?: Yes Plan: As per PCP. Monitor. (8) HTN (hypertension) Qualifiers: Hypertension type: essential hypertension Qualified Code(s): I10 - Essential (primary) hypertension Plan: Well controlled. Monitor. (9) Cor pulmonale Plan: Status quo.Reviewed last echo done late in 2019 which had shown moderate MR and features indicative of moderately severe pulmonary hypertension/cor pulmonale. 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
[2019-08-30] MEDS: FAMOTIDINE 20 MG TABLET PO SCH (22:58)
[2019-08-31] MEDS: HEPARIN SOD (PORCINE) 5,000 UNIT/ML 1 ML VIAL SUBCUT SCH ×3 (05:52→21:37)
[2019-08-31] MEDS: HYDRALAZINE HCL 50 MG TABLET PO SCH ×3 (05:54→21:38)
[2019-08-31 06:47] LABS: ABSOLUTE EOSINOPHILS # (AUTO) 0.1 10^3/uL (0.0-0.6); ABSOLUTE LYMPHOCYTES (AUTO) 0.9 10^3/uL (0.5-4.7); ABSOLUTE MONOCYTES (AUTO) 0.8 10^3/uL (0.1-1.4); BASOPHILS % (AUTO) 0.5 % (0-2); EOSINOPHILS % (AUTO) 1.8 % (0-6); HEMATOCRIT 30.2 % (36.0-47.0); HEMOGLOBIN 9.8 g/dL (12.0-15.5); LYMPHOCYTES % (AUTO) 15.6 % (13-45); MEAN CORPUSCULAR HEMOGLOBIN 30.7 pg (27.0-33.4); MEAN CORPUSCULAR HGB CONC 32.5 g/dL (32.0-36.0); MEAN CORPUSCULAR VOLUME 95 fl (80-97); MONOCYTES % (AUTO) 13.2 % (3-13); PLATELET COUNT 100 10^3/uL (150-450); RED CELL DISTRIBUTION WIDTH 17.7 % (11.5-14.0); SEGMENTED NEUTROPHILS % (AUTO) 68.9 % (42-78); TOTAL CELLS COUNTED % (AUTO) 100 %; WHITE BLOOD COUNT 5.8 10^3/uL (4.0-10.5)
[2019-08-31 06:50] LABS: ALBUMIN 3.8 g/dL (3.5-5.0); ALKALINE PHOSPHATASE 562 U/L (38-126); ANION GAP 12 (5-19); ASPARTATE AMINO TRANSFERASE 33 U/L (14-36); BILIRUBIN,DIRECT 0.9 mg/dL (0.0-0.4); BILIRUBIN,TOTAL 1.5 mg/dL (0.2-1.3); BLOOD UREA NITROGEN 100 mg/dL (7-20); CALCIUM 9.6 mg/dL (8.4-10.2); CARBON DIOXIDE 23 mmol/L (22-30); CHLORIDE 109 mmol/L (98-107); GLUCOSE 107 mg/dL (75-110); POTASSIUM 4.5 mmol/L (3.6-5.0)
[2019-08-31] MEDS: INSULIN LISPRO 100 UNIT/ML 3 ML VIAL SUBCUT SCH ×4 (08:35→21:38)
[2019-08-31] MEDS: ASCORBIC ACID 500 MG TABLET PO SCH (09:40)
[2019-08-31] MEDS: MECLIZINE HCL 12.5 MG TABLET PO SCH ×3 (09:40→17:42)
[2019-08-31] MEDS: GABAPENTIN 300 MG CAPSULE PO SCH ×2 (09:40→21:38)
[2019-08-31] MEDS: CARVEDILOL 12.5 MG TABLET PO SCH (09:40)
[2019-08-31] MEDS: FUROSEMIDE INJ/PF 20 MG/2 ML SDV IV SCH (09:40)
[2019-08-31] MEDS: FLUCONAZOLE 100 MG TABLET PO SCH (09:40)
[2019-08-31] MEDS: OLOPATADINE HCL 0.1% OPH SOLN 5 ML OU SCH (09:46)
--- NOTE | 2019-08-31 11:43 | PDOC PROGRESS REPORT ---
Subjective Progress Note for:: 08/31/19 Subjective:: Patient is currently doing fair Patient with some mild abdominal pain but no nausea no vomiting Patient have a history of the chronic cholecystitis Patient is seen by Dr. Valladares patient's IV fluid is stopped by Dr. Bess continues on IV Lasix Patient also for chronic congestive heart failure Reason For Visit: ACUTE ON CHRONIC KIDNYE FAILURE WITH HYPERKALEMIA, Physical Exam Vital Signs: Temp Pulse Resp BP Pulse Ox 97.8 F 65 20 161/65 H 93 08/31/19 08:09 08/31/19 08:09 08/31/19 08:09 08/31/19 08:09 08/31/19 08:09 Intake & Output 08/30/19 08/31/19 09/01/19 06:59 06:59 06:59 Intake Total 1976 802 Output Total 1075 850 Balance 901 -48 Weight 102.5 kg 105.1 kg General appearance: PRESENT: no acute distress, well-developed, well-nourished Head exam: PRESENT: atraumatic, normocephalic Eye exam: PRESENT: conjunctiva pink, EOMI, PERRLA. ABSENT: scleral icterus Ear exam: PRESENT: normal external ear exam Mouth exam: PRESENT: moist, tongue midline Neck exam: PRESENT: full ROM. ABSENT: carotid bruit, JVD, lymphadenopathy, thyromegaly Respiratory exam: PRESENT: clear to auscultation lele Cardiovascular exam: PRESENT: RRR. ABSENT: diastolic murmur, rubs, systolic murmur Vascular exam: PRESENT: normal capillary refill GI/Abdominal exam: PRESENT: normal bowel sounds, soft. ABSENT: distended, guarding, mass, organolmegaly, rebound, tenderness Rectal exam: PRESENT: deferred Extremities exam: PRESENT: pedal edema Neurological exam: PRESENT: alert, awake, oriented to person, oriented to place, oriented to time, oriented to situation, CN II-XII grossly intact. ABSENT: motor sensory deficit Psychiatric exam: PRESENT: appropriate affect, normal mood. ABSENT: homicidal ideation, suicidal ideation Skin exam: PRESENT: dry, intact, warm. ABSENT: cyanosis, rash Results Laboratory Results: 08/31/19 05:54 08/31/19 05:54 08/31/19 08/31/19 05:54 05:54 WBC 5.8 RBC 3.20 L Hgb 9.8 L Hct 30.2 L MCV 95 MCH 30.7 MCHC 32.5 RDW 17.7 H Plt Count 100 L Seg Neutrophils % 68.9 Sodium 144.1 Potassium 4.5 Chloride 109 H Carbon Dioxide 23 Anion Gap 12 BUN 100 H Creatinine 3.44 H Est GFR ( Amer) 16 L Glucose 107 Calcium 9.6 Total Bilirubin 1.5 H AST 33 Alkaline Phosphatase 562 H Total Protein 8.0 Albumin 3.8 08/27/19 12:15 Foot - Diabetic Ulcer Gram Stain - Final 08/27/19 12:15 Foot - Diabetic Ulcer Wound Culture - Final Pseudomonas Aeruginosa Skin Kamryn 08/19/19 08/19/19 03:49 03:49 Creatine Kinase < 20 L Troponin I < 0.012 NT-Pro-B Natriuret Pep 9540 H Impressions: Chest X-Ray 08/19/19 10:03 IMPRESSION: Cardiomegaly and vascular congestion. Similar findings were noted on prior study. Abdomen Ultrasound 08/23/19 00:00 IMPRESSION: Borderline hepatomegaly. Normal hepatic and portal veins. Cholelithiasis with slight thickening of the gallbladder wall but a negative sonographic Viera sign. Assessment & Plan - Diagnosis (1) Rvhed-hw-vfbikzv renal failure Qualifiers: Acute renal failure type: unspecified Chronic kidney disease stage: stage 4 (severe) Qualified Code(s): N17.9 - Acute kidney failure, unspecified; N18.4 - Chronic kidney disease, stage 4 (severe) Is this a current diagnosis for this admission?: Yes Plan: Patient has been admitted with his features suggestive of fluid overload in the background of cor pulmonale and acute kidney injury with electrolyte abnormalities in the form of hyperkalemia. Initiate work-up for her abnormal LFTs including imaging studies and see if needs for surgical consult. Meanwhile starting her on intravenous diuretics. (2) Cholelithiasis Is this a current diagnosis for this admission?: Yes Plan: As seen on CT scan done earlier this year. (3) Cor pulmonale Is this a current diagnosis for this admission?: Yes Plan: Monitor.Unsure if she has been studied for sleep apnea as patient is not a good historian. (4) Obstructive jaundice Is this a current diagnosis for this admission?: Yes Plan: Get an abdominal ultrasound with focus on liver/ gallbladder. She has a history of cholelithiasis as seen on CT scan done earlier this year. She is now itching all over and will fit in with the with the pattern of obstructive jaundice. 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 Garcia (8) Anemia of chronic disease Is this a current diagnosis for this admission?: Yes Plan: Get anemia work-up done. DC ferrous sulfate. - Time Time Spent with patient: 15-24 minutes Level of Care: IMCU Medications reviewed and adjusted accordingly: Yes Anticipated discharge: Other Within: Other - Plan Summary Plan Summary: We will repeat the blood work in the morning Continues to current medications
--- NOTE | 2019-08-31 15:13 | PDOC CONSULTATION ---
Consultation-Blank Consultation: CARDIOLOGY CONSULTATION by Dr. Gema Garcia on 08/31/2019. Patient seen at 11:00 AM. 60 minutes spent on the patient more than 50% of time spent in direct patient care. REASON FOR CONSULTATION: Management of medications the patient well-known to me with a history of coronary artery disease, paroxysmal atrial fibrillation, hypertension, and bradycardia. CONSULT REQUESTING PHYSICIAN: Dr. Dyer. HISTORY OF PRESENT ILLNESS: Patient is a 62-year-old Afro-[place] female with a history of multiple medical problems including coronary artery disease, prior history of UT, history of coronary bypass graft surgery, paroxysmal atrial fibrillation, history of CVA and also history of spontaneous intracerebral hemorrhage, and chronic kidney disease, diabetes mellitus, and significant noncompliance admitted with initially hyperkalemia due to acute on chronic renal failure. The patient this admission has no recurrence of atrial fibrillation, but is known to be bradycardic with a resting baseline heart rate of 61 which occasionally goes down into the 50s. The patient is on Coreg 12.5 mg p.o. twice daily. She also has intermittent abdominal pain which is generalized abdominal pain and not right upper quadrant pain. She has history of intermittent nausea and vomiting. The patient's bilirubin is noted to be high with normal liver enzymes, and elevated alk phos. She does have chronic gallstones with a thickened gallbladder wall but no common bile duct obstruction by abdominal ultrasound. The patient does have a history of arthritis and also has a left heel ulcer due to peripheral vascular disease causing its nonhealing. At present the patient denies any chest pain discomfort. There is no shortness of breath. There is no cough or. There is no recurrence of atrial fibrillation. There is no ventricular arrhythmia seen on the monitor. There is no recurrent symptoms of CVA. She has a history of vague multiple complaints such as malaise nausea. In the past she used to be on Eliquis but due to significant nosebleeds the Eliquis was discontinued. Subsequent to that she had an intracerebral hemorrhage. She also has had history of CVAs. Her Brad vas 2 score is very high for recurrent CVAs, but anticoagulation is contraindicated. Past Medical History Cardiac Medical History: Reports: Congestive Heart Failure, Coronary Artery Disease, Myocardial Infarction, Hyperlipidema, Hypertension, Peripheral Vascular Disease Denies: Atrial Fibrillation Pulmonary Medical History: Reports: Bronchitis, history of asthma and COPD. Denies: Pneumonia, Tuberculosis Neurological Medical History: Denies: Seizures. History of intracranial hemorrhage hemorrhage in the past. History of CVA x2 with mild left-sided weakness. Endocrine Medical History: Reports: Diabetes Mellitus Type 1, Diabetes Mellitus Type 2 Renal/ Medical History: Denies: End Stage Renal Disease Malignancy Medical History: GI Medical History: Reports: Diverticulitis - diverticulosis Denies: Gastroesophageal Reflux Disease, Hiatal Hernia Musculoskeltal Medical History: Denies: Arthritis Psychiatric Medical History: Denies: Bipolar Disorder, Depression Hematology: Denies: Anemia, Hemophilia, Sickle Cell Disease Infectious Medical History: Past Surgical History Past Surgical History: Reports: Coronary Artery Bypass Graft - May 16 2011, Tonsillectomy, Vascular Surgery Denies: Amputation, Appendectomy, Cardiac Catheterization, Section, Cholecystectomy, Hysterectomy, Mastectomy, Tubal Ligation Social History Lives with: Family Smoking Status: Never Smoker Electronic Cigarette use?: No Frequency of Alcohol Use: None Hx Recreational Drug Use: No Drugs: None Hx Prescription Drug Abuse: No Family History Family History: CAD, Hyperlipidemia, Hypertension, Reviewed & Not Pertinent Parental Family History Reviewed: Yes Children Family History Reviewed: Yes Sibling(s) Family History Reviewed.: Yes RESUSCITATION STATUS: The patient is a full code. Her daughter is a surrogate healthcare decision maker. Current Medications Generic Name Dose Route Start Last Admin Trade Name Freq PRN Reason Stop Dose Admin Albuterol/Ipratropium 3 ml 08/19/19 11:32 Duoneb 3 Ml Ampul NEB 09/18/19 11:31 [id number] PRN WHEEZING Ascorbic Acid 500 mg 08/20/19 10:00 08/31/19 09:40 Vitamin C 500 Mg Tablet PO 09/19/19 09:59 500 mg DAILY OK Administration Dextrose 12.5 gm 08/19/19 11:30 Dextrose Inj 50% Syringe (25 Gm/50 Ml) IV 09/18/19 11:29 PRN PRN FOR BG 50-69 IN ALERT PATIENT Protocol Dextrose 25 gm 08/19/19 11:30 Dextrose Inj 50% Syringe (25 Gm/50 Ml) IV 09/18/19 11:29 PRN PRN PER PROTOCOL Protocol Dicyclomine HCl 10 mg 08/19/19 11:32 Bentyl 10 Mg Capsule PO 09/18/19 11:31 DAILYP PRN IBS Famotidine 20 mg 08/26/19 22:00 08/30/19 22:58 Pepcid 20 Mg Tablet PO 09/25/19 21:59 20 mg QHS OK Administration Fluconazole 100 mg 08/29/19 10:00 08/31/19 09:40 Diflucan 100 Mg Tablet PO 09/05/19 09:59 100 mg DAILY OK Administration Furosemide 20 mg 08/28/19 10:00 08/31/19 09:40 Lasix Inj/Pf 20 Mg/2 Ml Sdv IV 09/27/19 09:59 20 mg DAILY OK Administration Gabapentin 300 mg 08/23/19 22:00 08/31/19 09:40 Neurontin 300 Mg Capsule PO 09/22/19 21:59 300 mg Q12 OK Administration Glucagon 1 mg 08/19/19 11:30 Glucagen Inj 1 Mg Vial IM 09/18/19 11:29 PRN PRN Evaluate for BG < 70 Protocol Glucose 15 gm 08/19/19 11:30 08/19/19 13:00 Glutose 40% Gel 15 Gm Tube PO 09/18/19 11:29 15 gm PRN PRN Administration FOR BG 50-69 IN ALERT PATIENT Protocol Glucose 30 gm 08/19/19 11:30 Glutose 40% Gel 15 Gm Tube PO 09/18/19 11:29 PRN PRN FOR BG < 50 IN ALERT PATIENT Protocol Heparin Sodium (Porcine) 5,000 unit 08/19/19 14:00 08/31/19 15:10 Heparin Inj 5,000 Units/Ml 1 Ml Vial SUBCUT 09/18/19 13:59 Not Given Q8 OK Hydralazine HCl 100 mg 08/30/19 14:00 08/31/19 15:07 Apresoline 50 Mg Tablet PO 09/29/19 13:59 100 mg Q8 OK Administration Insulin Human Lispro 0 - 12 unit 08/19/19 16:00 08/31/19 16:35 Humalog Insulin 100 Unit/1 Ml 3 Ml Vial SUBCUT 09/18/19 15:59 Not Given ACHS [facility] Protocol Meclizine HCl 12.5 mg 08/26/19 10:00 08/31/19 17:42 Antivert 12.5 Mg Tablet PO 09/25/19 09:59 12.5 mg TID OK Administration Olopatadine HCl 1 drop 08/27/19 19:00 08/31/19 09:46 Patanol 0.1% Oph Soln 5 Ml OU 09/26/19 18:59 1 drop DAILY OK Administration Ondansetron HCl 4 mg 08/19/19 11:59 Zofran Odt 4 Mg Tablet PO 09/18/19 11:58 Q6HP PRN FOR NAUSEA/VOMITING Patient Own Medication 30 unit 08/20/19 10:00 Insulin Degludec [Tresiba Flextouch U-100] SUBCUT 09/19/19 09:59 .DAILY OK Sodium Chloride 2.5 ml 08/29/19 22:00 08/31/19 15:07 Saline Flush 2.5 Ml Monoject Prefil Syrin IV 09/28/19 21:59 2.5 ml Q8 OK Administration Discontinued Medications Generic Name Dose Route Start Last Admin Trade Name Freq PRN Reason Stop Dose Admin Amlodipine Besylate 10 mg 08/20/19 10:00 08/21/19 10:19 Norvasc 10 Mg Tablet PO 09/19/19 09:59 10 mg DAILY OK Administration Amlodipine Besylate 5 mg 08/22/19 10:00 08/30/19 09:46 Norvasc 5 Mg Tablet PO 09/21/19 09:59 5 mg DAILY OK Administration Atorvastatin Calcium 20 mg 08/19/19 22:00 08/22/19 21:22 Lipitor 20 Mg Tablet PO 09/18/19 21:59 20 mg QHS OK Administration Calcium Gluconate 1,000 mg 08/19/19 06:29 08/19/19 07:01 Calcium Gluconate Inj 1000 Mg/10 Ml IV 08/19/19 06:30 1,000 mg NOW ONE Administration Carvedilol 12.5 mg 08/19/19 22:00 08/31/19 09:40 Coreg 12.5 Mg Tablet PO 09/18/19 21:59 12.5 mg Q12 OK Administration Dextrose 25 gm 08/19/19 06:30 08/19/19 07:01 Dextrose Inj 50% Syringe (25 Gm/50 Ml) IV 08/19/19 06:31 25 gm NOW ONE Administration Dextrose 25 gm 08/22/19 21:30 08/22/19 21:31 Dextrose Inj 50% Syringe (25 Gm/50 Ml) IV 08/22/19 21:31 25 gm NOW ONE Administration Famotidine 20 mg 08/19/19 18:00 08/25/19 17:55 Pepcid 20 Mg Tablet PO 09/18/19 17:59 20 mg BID OK Administration Ferrous Sulfate 325 mg 08/20/19 10:00 08/23/19 10:12 Feosol 325 Mg Tablet PO 09/19/19 09:59 325 mg DAILY OK Administration Furosemide 20 mg 08/20/19 08:34 08/20/19 12:37 Lasix Inj/Pf 20 Mg/2 Ml Sdv IV 08/20/19 23:59 20 mg .IN BETWEEN UNITS PRN Administration THIS MED IS NOT "PRN" Furosemide 20 mg 08/23/19 11:45 08/27/19 09:37 Lasix Inj/Pf 20 Mg/2 Ml Sdv IV 09/22/19 11:44 20 mg Q12 OK Administration Gabapentin 300 mg 08/19/19 14:00 08/23/19 05:46 Neurontin 300 Mg Capsule PO 09/18/19 13:59 300 mg Q8 OK Administration Hydralazine HCl 100 mg 08/19/19 14:00 08/21/19 14:12 Apresoline 50 Mg Tablet PO 09/18/19 13:59 100 mg Q8 OK Administration Hydralazine HCl 50 mg 08/21/19 22:00 08/30/19 05:20 Apresoline 50 Mg Tablet PO 09/20/19 21:59 50 mg Q8 OK Administration Calcium Gluconate 1 gm in 50 mls @ 50 mls/hr 08/22/19 21:00 08/22/19 21:31 Calcium Gluconate Rtu 1 Gm/50 Ml IV 08/22/19 21:59 50 mls/hr NOW ONE Administration Sodium Chloride 1,000 mls @ 50 mls/hr 08/23/19 11:45 08/25/19 10:30 Nacl 0.45% 1000 Ml Iv Soln IV Infused CONTINUOUS PRN Infusion THIS MED IS NOT "PRN" Sodium Chloride 1,000 mls @ 75 mls/hr 08/26/19 10:10 08/29/19 21:53 Nacl 0.45% 1000 Ml Iv Soln IV 09/25/19 10:09 Infused CONTINUOUS PRN Infusion THIS MED IS NOT "PRN" Fluconazole/Sodium Chloride 200 mg in 100 mls @ 100 mls/hr 08/28/19 18:30 08/28/19 19:42 Diflucan Rtu 200 Mg/Ns 100 Ml Premix IV 08/28/19 19:29 Infused NOW ONE Infusion Insulin Human Regular 4 unit 08/19/19 06:30 08/19/19 07:01 Humulin R (Pyxis) Insulin 100 Unit/Ml 3ml IV 08/19/19 06:31 4 unit NOW ONE Administration Insulin Human Regular 10 unit 08/22/19 21:30 08/22/19 21:30 Humulin R (Pyxis) Insulin 100 Unit/Ml 3ml IV 08/22/19 21:31 10 unit NOW ONE Administration Meclizine HCl 12.5 mg 08/19/19 14:00 08/25/19 17:55 Antivert 25 Mg Tablet PO 09/18/19 13:59 12.5 mg TID OK Administration Pantoprazole Sodium 40 mg 08/20/19 06:00 08/20/19 06:[address] Tablet PO 09/19/19 05:59 40 mg Q6AM OK Administration Sodium Bicarbonate 50 meq 08/19/19 06:29 08/19/19 07:02 Sodium Bicarbonate 8.4% Inj 50 Meq/50ml Syrin IV 08/19/19 06:30 50 meq NOW ONE Administration Sodium Polystyrene Sulfonate 15 gm 08/19/19 06:29 08/19/19 07:13 Kayexalate 15 Gm/60 Ml Susp 60 Ml PO 08/19/19 06:30 15 gm NOW ONE Administration Sodium Polystyrene Sulfonate 15 gm 08/22/19 21:00 08/22/19 21:22 Kayexalate 15 Gm/60 Ml Susp 60 Ml PO 08/22/19 21:01 15 gm NOW ONE Administration Sodium Polystyrene Sulfonate 15 gm 08/23/19 11:45 08/24/19 22:20 Kayexalate 15 Gm/60 Ml Susp 60 Ml PO 08/24/19 22:01 15 gm Q12 OK Administration Medication/Allergy Home Medications: Amlodipine Besylate [Norvasc 10 mg Tablet] 10 mg PO DAILY 11/30/18 Ascorbic Acid [Vitamin C 500 mg Tablet] 500 mg PO DAILY 11/30/18 Atorvastatin Calcium [Lipitor 20 mg Tablet] 20 mg PO QHS 11/30/18 Docusate Sodium [Colace 100 mg Capsule] 100 mg PO BIDP PRN 11/30/18 Ferrous Sulfate [Feosol 325 mg Tablet] 325 mg PO DAILY 11/30/18 Gabapentin [Neurontin 300 mg Capsule] 300 mg PO Q8 01/06/19 Insulin Degludec [Tresiba Flextouch U-100] 30 unit SQ DAILY 01/06/19 Escitalopram Oxalate [Lexapro 10 mg Tablet] 10 mg PO QHS #30 tablet 03/01/19 Carvedilol [Coreg 12.5 mg Tablet] 12.5 mg PO Q12 04/13/19 Cholecalciferol (Vitamin D3) [Vitamin D3 1000 Unit Tablet] 2,000 unit PO DAILY 04/13/19 Dicyclomine HCl [Bentyl 10 mg Capsule] 10 mg PO DAILY PRN 04/13/19 Famotidine [Pepcid] 20 mg PO BID 04/13/19 Hydralazine HCl 100 mg PO Q8 04/13/19 Multivit,Tx with Iron,Minerals [Thera-M] 1 each PO DAILY 05/08/19 Acetaminophen [Acetaminophen Extra Strength] 500 mg PO DAILYP PRN 07/01/19 Meclizine HCl [Verticalm] 12.5 mg PO TID #45 tablet 07/19/19 Omeprazole 20 mg PO DAILY 07/25/19 Ipratropium/Albuterol Sulfate [Duoneb 3 ml Ampul] 3 ml NEB [id number] PRN 08/19/19 Ondansetron HCl 4 mg PO Q6HP PRN 08/19/19 Oxycodone HCl/Acetaminophen [Percocet 5-325 mg Tablet] 1 tab PO Q8HP PRN 08/19/19 Sucralfate [Carafate Susp 1 gm/10 ml Udcup] 10 ml PO QHS 08/19/19 Allergies/Adverse Reactions: pregabalin [From Lyrica] Allergy (Intermediate, Verified 07/03/19 07:18) RASH duloxetine Allergy (Verified 07/03/19 07:18) Review of Systems Constitutional: ABSENT: chills, fever(s), headache(s) Eyes: ABSENT: visual disturbances Ears: ABSENT: hearing changes Cardiovascular: ABSENT: chest pain, dyspnea on exertion, edema, orthropnea, palpitations Respiratory: ABSENT: cough, hemoptysis Gastrointestinal: PRESENT: abdominal pain - chronic lower region. ABSENT: constipation, diarrhea, hematemesis, hematochezia, nausea, vomiting Genitourinary: ABSENT: dysuria, hematuria Musculoskeletal: ABSENT: joint swelling Integumentary: ABSENT: rash, wounds Neurological: ABSENT: abnormal gait, abnormal speech, confusion, dizziness, focal weakness, syncope Psychiatric: ABSENT: anxiety, depression, homidical ideation, suicidal ideation Endocrine: ABSENT: cold intolerance, heat intolerance, polydipsia, polyuria Hematologic/Lymphatic: ABSENT: easy bleeding, easy bruising, lymphadenopathy. PHYSICAL EXAMINATION: The patient is morbidly obese. At present in no acute distress. She is slow to answer but appears to be appropriate. Selected Entries 08/31/19 11:31 Temperature 97.3 F Temperature Oral Source Pulse Rate 62 Respiratory 16 Rate Blood Pressure 133/66 H Blood Pressure 88 Mean BP Location Left Arm BP Position Sitting O2 Sat by Pulse 91 L Oximetry Oxygen Delivery Room Air Method HEENT: Head is atraumatic/normocephalic. EYES: Pupils are equal round regular reactive to light accommodation external ocular movements are normal. There is no conjunctival pallor there is no scleral icterus. ENT is negative. Neck is supple there is no JVD carotids are equal there is no bruit there is no lymphadenopathy there is no goiter trachea is central.Lungs: There is diminished air entry and prolonged expiration without any rhonchi rales or wheezing. On percussion there is hyperresonance throughout. There are no rales of CHF. HEART: S1-S2 is heard there is no S3 gallop there is no S4 gallop there is a systolic murmur in the left sternal border and apex there is no rub. ABDOMEN: Abdomen is soft nontender there is no hepatosplenomegaly. Bowel sounds well heard there are no tender areas of masses. EXTREMITIES femorals are diminished. Leg pulses are difficult to palpate. There are no femoral bruits. There is dressing on the ulcers of both nonhealing ulcers of the feet which are. There is no pedal edema. There is no DVT or cellulitis there is no calf tenderness. There is no cyanosis or clubbing.FACILITIES MAINTENANCE ASSISTANT: The patient is awake alert oriented 3 with no focal deficits. PSYCHIATRIC: The patient's judgment and insight are intact her affect is normal. Labs- Entire Visit 08/19/19 08/19/19 08/19/19 02:58 02:58 03:49 WBC 4.4 RBC 2.53 L Hgb 7.8 L Hct 24.2 L MCV 96 MCH 30.7 MCHC 32.2 RDW 16.9 H Plt Count 191 Lymph % (Auto) 20.1 Walsh % (Auto) 15.3 H Eos % (Auto) 1.3 Baso % (Auto) 0.8 Reticulocyte # Absolute Neuts (auto) 2.8 Absolute Lymphs (auto) 0.9 Absolute Monos (auto) 0.7 Absolute Eos (auto) 0.1 Absolute Basos (auto) 0.0 Seg Neutrophils % 62.5 Retic Count (auto) Sodium Cancelled 142.3 Potassium Cancelled 5.8 H Chloride Cancelled 107 Carbon Dioxide Cancelled 26 Anion Gap Cancelled 9 BUN Cancelled 93 H Creatinine Cancelled 4.85 H Est GFR ( Amer) Cancelled 11 L Est GFR (Non-Af Amer) Cancelled Est GFR (MDRD) Non-Af Cancelled 9 L Glucose Cancelled 112 H POC Glucose Calcium Cancelled 9.4 Magnesium Cancelled 2.8 H Iron TIBC % Saturation Iron Saturation Ferritin Total Bilirubin Cancelled 0.8 Direct Bilirubin Cancelled 0.6 H Neonat Total Bilirubin Cancelled Not Reportable Neonat Direct Bilirubin Cancelled Not Reportable Neonat Indirect Bili Cancelled Not Reportable GGT AST Cancelled 52 H ALT Cancelled 34 Alkaline Phosphatase Cancelled 469 H Ammonia Creatine Kinase Troponin I NT-Pro-B Natriuret Pep Total Protein Cancelled 8.2 Albumin Cancelled 3.8 EGFR Cancelled Vitamin B12 Folate Urine Color Urine Appearance Urine pH Ur Specific [place] Urine Protein Urine Glucose (UA) Urine Ketones Urine Blood Urine Nitrite Urine Bilirubin Urine Urobilinogen Ur Leukocyte Esterase Urine WBC (Auto) Urine RBC (Auto) U Hyaline Cast (Auto) Urine Bacteria (Auto) Squamous Epi Cells Auto Urine Yeast (Budding) Urine Ascorbic Acid Serum Alcohol Cancelled < 10 Blood Type Antibody Screen Crossmatch 08/19/19 08/19/19 08/19/19 03:49 03:49 03:49 WBC RBC Hgb Hct MCV MCH MCHC RDW Plt Count Lymph % (Auto) Walsh % (Auto) Eos % (Auto) Baso % (Auto) Reticulocyte # Absolute Neuts (auto) Absolute Lymphs (auto) Absolute Monos (auto) Absolute Eos (auto) Absolute Basos (auto) Seg Neutrophils % Retic Count (auto) Sodium Potassium Chloride Carbon Dioxide Anion Gap BUN Creatinine Est GFR ( Amer) Est GFR (Non-Af Amer) Est GFR (MDRD) Non-Af Glucose POC Glucose Calcium Magnesium Iron TIBC % Saturation Iron Saturation Ferritin Total Bilirubin Direct Bilirubin Neonat Total Bilirubin Neonat Direct Bilirubin Neonat Indirect Bili GGT 706 H AST ALT Alkaline Phosphatase Ammonia Creatine Kinase < 20 L Troponin I < 0.012 NT-Pro-B Natriuret Pep 9540 H Total Protein Albumin EGFR Vitamin B12 Folate Urine Color Urine Appearance Urine pH Ur Specific [place] Urine Protein Urine Glucose (UA) Urine Ketones Urine Blood Urine Nitrite Urine Bilirubin Urine Urobilinogen Ur Leukocyte Esterase Urine WBC (Auto) Urine RBC (Auto) U Hyaline Cast (Auto) Urine Bacteria (Auto) Squamous Epi Cells Auto Urine Yeast (Budding) Urine Ascorbic Acid Serum Alcohol Blood Type Antibody Screen Crossmatch 08/19/19 08/19/19 08/19/19 06:55 08:27 12:51 WBC RBC Hgb Hct MCV MCH MCHC RDW Plt Count Lymph % (Auto) Walsh % (Auto) Eos % (Auto) Baso % (Auto) Reticulocyte # Absolute Neuts (auto) Absolute Lymphs (auto) Absolute Monos (auto) Absolute Eos (auto) Absolute Basos (auto) Seg Neutrophils % Retic Count (auto) Sodium Potassium Chloride Carbon Dioxide Anion Gap BUN Creatinine Est GFR ( Amer) Est GFR (Non-Af Amer) Est GFR (MDRD) Non-Af Glucose POC Glucose 71 37 L* Calcium Magnesium Iron TIBC % Saturation Iron Saturation Ferritin Total Bilirubin Direct Bilirubin Neonat Total Bilirubin Neonat Direct Bilirubin Neonat Indirect Bili GGT AST ALT Alkaline Phosphatase Ammonia Creatine Kinase Troponin I NT-Pro-B Natriuret Pep Total Protein Albumin EGFR Vitamin B12 Folate Urine Color YELLOW Urine Appearance SLIGHTLY-CLOUDY Urine pH 6.0 Ur Specific [place] 1.012 Urine Protein 30 H Urine Glucose (UA) NEGATIVE Urine Ketones NEGATIVE Urine Blood NEGATIVE Urine Nitrite NEGATIVE Urine Bilirubin NEGATIVE Urine Urobilinogen NEGATIVE Ur Leukocyte Esterase LARGE H Urine WBC (Auto) 51 Urine RBC (Auto) 29 U Hyaline Cast (Auto) 8 Urine Bacteria (Auto) TRACE Squamous Epi Cells Auto 2 Urine Yeast (Budding) PRESENT Urine Ascorbic Acid 40 H Serum Alcohol Blood Type Antibody Screen Crossmatch 08/19/19 08/19/19 08/19/19 13:41 15:13 17:51 WBC RBC Hgb Hct MCV MCH MCHC RDW Plt Count Lymph % (Auto) Walsh % (Auto) Eos % (Auto) Baso % (Auto) Reticulocyte # Absolute Neuts (auto) Absolute Lymphs (auto) Absolute Monos (auto) Absolute Eos (auto) Absolute Basos (auto) Seg Neutrophils % Retic Count (auto) Sodium Potassium Chloride Carbon Dioxide Anion Gap BUN Creatinine Est GFR ( Amer) Est GFR (Non-Af Amer) Est GFR (MDRD) Non-Af Glucose POC Glucose 112 H 135 H 115 H Calcium Magnesium Iron TIBC % Saturation Iron Saturation Ferritin Total Bilirubin Direct Bilirubin Neonat Total Bilirubin Neonat Direct Bilirubin Neonat Indirect Bili GGT AST ALT Alkaline Phosphatase Ammonia Creatine Kinase Troponin I NT-Pro-B Natriuret Pep Total Protein Albumin EGFR Vitamin B12 Folate Urine Color Urine Appearance Urine pH Ur Specific [place] Urine Protein Urine Glucose (UA) Urine Ketones Urine Blood Urine Nitrite Urine Bilirubin Urine Urobilinogen Ur Leukocyte Esterase Urine WBC (Auto) Urine RBC (Auto) U Hyaline Cast (Auto) Urine Bacteria (Auto) Squamous Epi Cells Auto Urine Yeast (Budding) Urine Ascorbic Acid Serum Alcohol Blood Type Antibody Screen Crossmatch 08/19/19 08/20/19 08/20/19 21:25 04:54 04:54 WBC 3.9 L RBC 2.46 L Hgb 7.6 L Hct 23.2 L MCV 94 MCH 30.7 MCHC 32.6 RDW 17.0 H Plt Count 182 Lymph % (Auto) 22.6 Walsh % (Auto) 13.6 H Eos % (Auto) 1.5 Baso % (Auto) 0.8 Reticulocyte # Absolute Neuts (auto) 2.4 Absolute Lymphs (auto) 0.9 Absolute Monos (auto) 0.5 Absolute Eos (auto) 0.1 Absolute Basos (auto) 0.0 Seg Neutrophils % 61.5 Retic Count (auto) Sodium 139.9 Potassium 5.2 H Chloride 104 Carbon Dioxide 27 Anion Gap 9 BUN 91 H Creatinine 4.96 H Est GFR ( Amer) 11 L Est GFR (Non-Af Amer) Est GFR (MDRD) Non-Af 9 L Glucose 120 H POC Glucose 183 H Calcium 9.1 Magnesium Iron TIBC % Saturation Iron Saturation Ferritin Total Bilirubin 0.7 Direct Bilirubin 0.5 H Neonat Total Bilirubin Not Reportable Neonat Direct Bilirubin Not Reportable Neonat Indirect Bili Not Reportable GGT AST 40 H ALT 33 Alkaline Phosphatase 422 H Ammonia Creatine Kinase Troponin I NT-Pro-B Natriuret Pep Total Protein 7.7 Albumin 3.5 EGFR Vitamin B12 Folate Urine Color Urine Appearance Urine pH Ur Specific [place] Urine Protein Urine Glucose (UA) Urine Ketones Urine Blood Urine Nitrite Urine Bilirubin Urine Urobilinogen Ur Leukocyte Esterase Urine WBC (Auto) Urine RBC (Auto) U Hyaline Cast (Auto) Urine Bacteria (Auto) Squamous Epi Cells Auto Urine Yeast (Budding) Urine Ascorbic Acid Serum Alcohol Blood Type Antibody Screen Crossmatch 08/20/19 08/20/19 08/20/19 07:20 07:49 11:40 WBC RBC Hgb Hct MCV MCH MCHC RDW Plt Count Lymph % (Auto) Walsh % (Auto) Eos % (Auto) Baso % (Auto) Reticulocyte # Absolute Neuts (auto) Absolute Lymphs (auto) Absolute Monos (auto) Absolute Eos (auto) Absolute Basos (auto) Seg Neutrophils % Retic Count (auto) Sodium Potassium Chloride Carbon Dioxide Anion Gap BUN Creatinine Est GFR ( Amer) Est GFR (Non-Af Amer) Est GFR (MDRD) Non-Af Glucose POC Glucose 119 H 123 H Calcium Magnesium Iron TIBC % Saturation Iron Saturation Ferritin Total Bilirubin Direct Bilirubin Neonat Total Bilirubin Neonat Direct Bilirubin Neonat Indirect Bili GGT AST ALT Alkaline Phosphatase Ammonia Creatine Kinase Troponin I NT-Pro-B Natriuret Pep Total Protein Albumin EGFR Vitamin B12 Folate Urine Color Urine Appearance Urine pH Ur Specific [place] Urine Protein Urine Glucose (UA) Urine Ketones Urine Blood Urine Nitrite Urine Bilirubin Urine Urobilinogen Ur Leukocyte Esterase Urine WBC (Auto) Urine RBC (Auto) U Hyaline Cast (Auto) Urine Bacteria (Auto) Squamous Epi Cells Auto Urine Yeast (Budding) Urine Ascorbic Acid Serum Alcohol Blood Type A2subB POSITIVE Antibody Screen NEGATIVE Crossmatch See Detail 08/20/19 08/20/19 08/20/19 16:27 19:22 21:56 WBC 5.6 RBC 3.07 L Hgb 9.4 L Hct 28.7 L MCV 94 MCH 30.5 MCHC 32.6 RDW 16.8 H Plt Count 175 Lymph % (Auto) 17.0 Walsh % (Auto) 14.9 H Eos % (Auto) 0.6 Baso % (Auto) 0.5 Reticulocyte # Absolute Neuts (auto) 3.8 Absolute Lymphs (auto) 1.0 Absolute Monos (auto) 0.8 Absolute Eos (auto) 0.0 Absolute Basos (auto) 0.0 Seg Neutrophils % 67.0 Retic Count (auto) Sodium Potassium Chloride Carbon Dioxide Anion Gap BUN Creatinine Est GFR ( Amer) Est GFR (Non-Af Amer) Est GFR (MDRD) Non-Af Glucose POC Glucose 126 H 114 H Calcium Magnesium Iron TIBC % Saturation Iron Saturation Ferritin Total Bilirubin Direct Bilirubin Neonat Total Bilirubin Neonat Direct Bilirubin Neonat Indirect Bili GGT AST ALT Alkaline Phosphatase Ammonia Creatine Kinase Troponin I NT-Pro-B Natriuret Pep Total Protein Albumin EGFR Vitamin B12 Folate Urine Color Urine Appearance Urine pH Ur Specific [place] Urine Protein Urine Glucose (UA) Urine Ketones Urine Blood Urine Nitrite Urine Bilirubin Urine Urobilinogen Ur Leukocyte Esterase Urine WBC (Auto) Urine RBC (Auto) U Hyaline Cast (Auto) Urine Bacteria (Auto) Squamous Epi Cells Auto Urine Yeast (Budding) Urine Ascorbic Acid Serum Alcohol Blood Type Antibody Screen Crossmatch 08/21/19 08/21/19 08/21/19 04:21 07:33 11:41 WBC 5.1 RBC 3.29 L Hgb 10.0 L Hct 30.5 L MCV 93 MCH 30.3 MCHC 32.6 RDW 17.2 H Plt Count 183 Lymph % (Auto) 25.6 Walsh % (Auto) 14.2 H Eos % (Auto) 0.7 Baso % (Auto) 0.6 Reticulocyte # Absolute Neuts (auto) 3.0 Absolute Lymphs (auto) 1.3 Absolute Monos (auto) 0.7 Absolute Eos (auto) 0.0 Absolute Basos (auto) 0.0 Seg Neutrophils % 58.9 Retic Count (auto) Sodium Potassium Chloride Carbon Dioxide Anion Gap BUN Creatinine Est GFR ( Amer) Est GFR (Non-Af Amer) Est GFR (MDRD) Non-Af Glucose POC Glucose 89 106 Calcium Magnesium Iron TIBC % Saturation Iron Saturation Ferritin Total Bilirubin Direct Bilirubin Neonat Total Bilirubin Neonat Direct Bilirubin Neonat Indirect Bili GGT AST ALT Alkaline Phosphatase Ammonia Creatine Kinase Troponin I NT-Pro-B Natriuret Pep Total Protein Albumin EGFR Vitamin B12 Folate Urine Color Urine Appearance Urine pH Ur Specific [place] Urine Protein Urine Glucose (UA) Urine Ketones Urine Blood Urine Nitrite Urine Bilirubin Urine Urobilinogen Ur Leukocyte Esterase Urine WBC (Auto) Urine RBC (Auto) U Hyaline Cast (Auto) Urine Bacteria (Auto) Squamous Epi Cells Auto Urine Yeast (Budding) Urine Ascorbic Acid Serum Alcohol Blood Type Antibody Screen Crossmatch 08/21/19 08/21/19 08/22/19 16:42 21:45 04:42 WBC 4.4 RBC 3.22 L Hgb 9.8 L Hct 30.1 L MCV 93 MCH 30.5 MCHC 32.7 RDW 17.2 H Plt Count 165 Lymph % (Auto) 24.0 Walsh % (Auto) 14.4 H Eos % (Auto) 1.0 Baso % (Auto) 1.2 Reticulocyte # Absolute Neuts (auto) 2.6 Absolute Lymphs (auto) 1.1 Absolute Monos (auto) 0.6 Absolute Eos (auto) 0.0 Absolute Basos (auto) 0.1 Seg Neutrophils % 59.4 Retic Count (auto) Sodium Potassium Chloride Carbon Dioxide Anion Gap BUN Creatinine Est GFR ( Amer) Est GFR (Non-Af Amer) Est GFR (MDRD) Non-Af Glucose POC Glucose 111 H 136 H Calcium Magnesium Iron TIBC % Saturation Iron Saturation Ferritin Total Bilirubin Direct Bilirubin Neonat Total Bilirubin Neonat Direct Bilirubin Neonat Indirect Bili GGT AST ALT Alkaline Phosphatase Ammonia Creatine Kinase Troponin I NT-Pro-B Natriuret Pep Total Protein Albumin EGFR Vitamin B12 Folate Urine Color Urine Appearance Urine pH Ur Specific [place] Urine Protein Urine Glucose (UA) Urine Ketones Urine Blood Urine Nitrite Urine Bilirubin Urine Urobilinogen Ur Leukocyte Esterase Urine WBC (Auto) Urine RBC (Auto) U Hyaline Cast (Auto) Urine Bacteria (Auto) Squamous Epi Cells Auto Urine Yeast (Budding) Urine Ascorbic Acid Serum Alcohol Blood Type Antibody Screen Crossmatch 08/22/19 08/22/19 08/22/19 04:42 07:50 11:51 WBC RBC Hgb Hct MCV MCH MCHC RDW Plt Count Lymph % (Auto) [place] % (Auto) Eos % (Auto) Baso % (Auto) Reticulocyte # Absolute Neuts (auto) Absolute Lymphs (auto) Absolute Monos (auto) Absolute Eos (auto) Absolute Basos (auto) Seg Neutrophils % Retic Count (auto) Sodium 140.4 Potassium 5.9 H Chloride 105 Carbon Dioxide 26 Anion Gap 9 BUN 108 H Creatinine 5.42 H Est GFR ( Amer) 10 L Est GFR (Non-Af Amer) Est GFR (MDRD) Non-Af 8 L Glucose 135 H POC Glucose 128 H 113 H Calcium 9.4 Magnesium Iron TIBC % Saturation Iron Saturation Ferritin Total Bilirubin 1.1 Direct Bilirubin 0.7 H Neonat Total Bilirubin Not Reportable Neonat Direct Bilirubin Not Reportable Neonat Indirect Bili Not Reportable GGT AST 48 H ALT 39 H Alkaline Phosphatase 472 H Ammonia Creatine Kinase Troponin I NT-Pro-B Natriuret Pep Total Protein 7.9 Albumin 3.5 EGFR Vitamin B12 Folate Urine Color Urine Appearance Urine pH Ur Specific [place] Urine Protein Urine Glucose (UA) Urine Ketones Urine Blood Urine Nitrite Urine Bilirubin Urine Urobilinogen Ur Leukocyte Esterase Urine WBC (Auto) Urine RBC (Auto) U Hyaline Cast (Auto) Urine Bacteria (Auto) Squamous Epi Cells Auto Urine Yeast (Budding) Urine Ascorbic Acid Serum Alcohol Blood Type Antibody Screen Crossmatch 08/22/19 08/22/19 08/23/19 16:40 21:07 07:53 WBC RBC Hgb Hct MCV MCH MCHC RDW Plt Count Lymph % (Auto) Walsh % (Auto) Eos % (Auto) Baso % (Auto) Reticulocyte # Absolute Neuts (auto) Absolute Lymphs (auto) Absolute Monos (auto) Absolute Eos (auto) Absolute Basos (auto) Seg Neutrophils % Retic Count (auto) Sodium Potassium Chloride Carbon Dioxide Anion Gap BUN Creatinine Est GFR ( Amer) Est GFR (Non-Af Amer) Est GFR (MDRD) Non-Af Glucose POC Glucose 148 H 212 H 132 H Calcium Magnesium Iron TIBC % Saturation Iron Saturation Ferritin Total Bilirubin Direct Bilirubin Neonat Total Bilirubin Neonat Direct Bilirubin Neonat Indirect Bili GGT AST ALT Alkaline Phosphatase Ammonia Creatine Kinase Troponin I NT-Pro-B Natriuret Pep Total Protein Albumin EGFR Vitamin B12 Folate Urine Color Urine Appearance Urine pH Ur Specific [place] Urine Protein Urine Glucose (UA) Urine Ketones Urine Blood Urine Nitrite Urine Bilirubin Urine Urobilinogen Ur Leukocyte Esterase Urine WBC (Auto) Urine RBC (Auto) U Hyaline Cast (Auto) Urine Bacteria (Auto) Squamous Epi Cells Auto Urine Yeast (Budding) Urine Ascorbic Acid Serum Alcohol Blood Type Antibody Screen Crossmatch 08/23/19 08/23/19 08/23/19 08:39 08:39 11:32 WBC 4.9 RBC 3.14 L Hgb 9.7 L Hct 29.8 L MCV 95 MCH 31.0 MCHC 32.6 RDW 17.5 H Plt Count 150 Lymph % (Auto) [place] % (Auto) Eos % (Auto) Baso % (Auto) Reticulocyte # Absolute Neuts (auto) Absolute Lymphs (auto) Absolute Monos (auto) Absolute Eos (auto) Absolute Basos (auto) Seg Neutrophils % Retic Count (auto) Sodium 141.4 Potassium 5.6 H Chloride 107 Carbon Dioxide 24 Anion Gap 10 BUN 107 H Creatinine 5.21 H Est GFR ( Amer) 10 L Est GFR (Non-Af Amer) Est GFR (MDRD) Non-Af 8 L Glucose 124 H POC Glucose 121 H Calcium 9.5 Magnesium Iron TIBC % Saturation Iron Saturation Ferritin Total Bilirubin 1.0 Direct Bilirubin 0.6 H Neonat Total Bilirubin Not Reportable Neonat Direct Bilirubin Not Reportable Neonat Indirect Bili Not Reportable GGT AST 48 H ALT 40 H Alkaline Phosphatase 509 H Ammonia Creatine Kinase Troponin I NT-Pro-B Natriuret Pep Total Protein 8.0 Albumin 3.7 EGFR Vitamin B12 Folate Urine Color Urine Appearance Urine pH Ur Specific [place] Urine Protein Urine Glucose (UA) Urine Ketones Urine Blood Urine Nitrite Urine Bilirubin Urine Urobilinogen Ur Leukocyte Esterase Urine WBC (Auto) Urine RBC (Auto) U Hyaline Cast (Auto) Urine Bacteria (Auto) Squamous Epi Cells Auto Urine Yeast (Budding) Urine Ascorbic Acid Serum Alcohol Blood Type Antibody Screen Crossmatch 08/23/19 08/23/19 08/24/19 16:26 21:17 06:30 WBC 5.5 RBC 3.19 L Hgb 9.8 L Hct 29.9 L MCV 94 MCH 30.7 MCHC 32.7 RDW 17.2 H Plt Count 144 L Lymph % (Auto) [place] % (Auto) Eos % (Auto) Baso % (Auto) Reticulocyte # 0.024 L Absolute Neuts (auto) Absolute Lymphs (auto) Absolute Monos (auto) Absolute Eos (auto) Absolute Basos (auto) Seg Neutrophils % Retic Count (auto) 0.76 Sodium Potassium Chloride Carbon Dioxide Anion Gap BUN Creatinine Est GFR ( Amer) Est GFR (Non-Af Amer) Est GFR (MDRD) Non-Af Glucose POC Glucose 161 H 140 H Calcium Magnesium Iron TIBC % Saturation Iron Saturation Ferritin Total Bilirubin Direct Bilirubin Neonat Total Bilirubin Neonat Direct Bilirubin Neonat Indirect Bili GGT AST ALT Alkaline Phosphatase Ammonia Creatine Kinase Troponin I NT-Pro-B Natriuret Pep Total Protein Albumin EGFR Vitamin B12 Folate Urine Color Urine Appearance Urine pH Ur Specific [place] Urine Protein Urine Glucose (UA) Urine Ketones Urine Blood Urine Nitrite Urine Bilirubin Urine Urobilinogen Ur Leukocyte Esterase Urine WBC (Auto) Urine RBC (Auto) U Hyaline Cast (Auto) Urine Bacteria (Auto) Squamous Epi Cells Auto Urine Yeast (Budding) Urine Ascorbic Acid Serum Alcohol Blood Type Antibody Screen Crossmatch 08/24/19 08/24/19 08/24/19 06:30 06:30 07:20 WBC RBC Hgb Hct MCV MCH MCHC RDW Plt Count Lymph % (Auto) [place] % (Auto) Eos % (Auto) Baso % (Auto) Reticulocyte # Absolute Neuts (auto) Absolute Lymphs (auto) Absolute Monos (auto) Absolute Eos (auto) Absolute Basos (auto) Seg Neutrophils % Retic Count (auto) Sodium Cancelled Potassium Cancelled Chloride Cancelled Carbon Dioxide Cancelled Anion Gap Cancelled BUN Cancelled Creatinine Cancelled Est GFR ( Amer) Cancelled Est GFR (Non-Af Amer) Cancelled Est GFR (MDRD) Non-Af Cancelled Glucose Cancelled POC Glucose 118 H Calcium Cancelled Magnesium Iron Cancelled TIBC Cancelled % Saturation Cancelled Iron Saturation Cancelled Ferritin Cancelled Total Bilirubin Cancelled Direct Bilirubin Cancelled Neonat Total Bilirubin Cancelled Neonat Direct Bilirubin Cancelled Neonat Indirect Bili Cancelled GGT AST Cancelled ALT Cancelled Alkaline Phosphatase Cancelled Ammonia Cancelled Creatine Kinase Troponin I NT-Pro-B Natriuret Pep Total Protein Cancelled Albumin Cancelled EGFR Cancelled Vitamin B12 Cancelled Folate Cancelled Urine Color Urine Appearance Urine pH Ur Specific [place] Urine Protein Urine Glucose (UA) Urine Ketones Urine Blood Urine Nitrite Urine Bilirubin Urine Urobilinogen Ur Leukocyte Esterase Urine WBC (Auto) Urine RBC (Auto) U Hyaline Cast (Auto) Urine Bacteria (Auto) Squamous Epi Cells Auto Urine Yeast (Budding) Urine Ascorbic Acid Serum Alcohol Blood Type Antibody Screen Crossmatch 08/24/19 08/24/19 08/24/19 09:18 09:18 11:12 WBC RBC Hgb Hct MCV MCH MCHC RDW Plt Count Lymph % (Auto) [place] % (Auto) Eos % (Auto) Baso % (Auto) Reticulocyte # Absolute Neuts (auto) Absolute Lymphs (auto) Absolute Monos (auto) Absolute Eos (auto) Absolute Basos (auto) Seg Neutrophils % Retic Count (auto) Sodium 142.0 Potassium 5.1 H Chloride 106 Carbon Dioxide 25 Anion Gap 11 BUN 105 H Creatinine 4.87 H Est GFR ( Amer) 11 L Est GFR (Non-Af Amer) Est GFR (MDRD) Non-Af 9 L Glucose 121 H POC Glucose 131 H Calcium 9.6 Magnesium Iron 76.6 TIBC 265 % Saturation 29 Iron Saturation Ferritin 457.00 H Total Bilirubin 1.1 Direct Bilirubin 0.6 H Neonat Total Bilirubin Not Reportable Neonat Direct Bilirubin Not Reportable Neonat Indirect Bili Not Reportable GGT AST 48 H ALT 43 H Alkaline Phosphatase 533 H Ammonia 29.6 Creatine Kinase Troponin I NT-Pro-B Natriuret Pep Total Protein 8.0 Albumin 3.7 EGFR Vitamin B12 652.0 Folate > 20.00 Urine Color Urine Appearance Urine pH Ur Specific [place] Urine Protein Urine Glucose (UA) Urine Ketones Urine Blood Urine Nitrite Urine Bilirubin Urine Urobilinogen Ur Leukocyte Esterase Urine WBC (Auto) Urine RBC (Auto) U Hyaline Cast (Auto) Urine Bacteria (Auto) Squamous Epi Cells Auto Urine Yeast (Budding) Urine Ascorbic Acid Serum Alcohol Blood Type Antibody Screen Crossmatch 08/24/19 08/24/19 08/25/19 16:12 21:13 07:33 WBC RBC Hgb Hct MCV MCH MCHC RDW Plt Count Lymph % (Auto) [place] % (Auto) Eos % (Auto) Baso % (Auto) Reticulocyte # Absolute Neuts (auto) Absolute Lymphs (auto) Absolute Monos (auto) Absolute Eos (auto) Absolute Basos (auto) Seg Neutrophils % Retic Count (auto) Sodium Potassium Chloride Carbon Dioxide Anion Gap BUN Creatinine Est GFR ( Amer) Est GFR (Non-Af Amer) Est GFR (MDRD) Non-Af Glucose POC Glucose 144 H 145 H 110 Calcium Magnesium Iron TIBC % Saturation Iron Saturation Ferritin Total Bilirubin Direct Bilirubin Neonat Total Bilirubin Neonat Direct Bilirubin Neonat Indirect Bili GGT AST ALT Alkaline Phosphatase Ammonia Creatine Kinase Troponin I NT-Pro-B Natriuret Pep Total Protein Albumin EGFR Vitamin B12 Folate Urine Color Urine Appearance Urine pH Ur Specific [place] Urine Protein Urine Glucose (UA) Urine Ketones Urine Blood Urine Nitrite Urine Bilirubin Urine Urobilinogen Ur Leukocyte Esterase Urine WBC (Auto) Urine RBC (Auto) U Hyaline Cast (Auto) Urine Bacteria (Auto) Squamous Epi Cells Auto Urine Yeast (Budding) Urine Ascorbic Acid Serum Alcohol Blood Type Antibody Screen Crossmatch 08/25/19 08/25/19 08/25/19 11:39 16:27 21:57 WBC RBC Hgb Hct MCV MCH MCHC RDW Plt Count Lymph % (Auto) [place] % (Auto) Eos % (Auto) Baso % (Auto) Reticulocyte # Absolute Neuts (auto) Absolute Lymphs (auto) Absolute Monos (auto) Absolute Eos (auto) Absolute Basos (auto) Seg Neutrophils % Retic Count (auto) Sodium Potassium Chloride Carbon Dioxide Anion Gap BUN Creatinine Est GFR ( Amer) Est GFR (Non-Af Amer) Est GFR (MDRD) Non-Af Glucose POC Glucose 123 H 143 H 147 H Calcium Magnesium Iron TIBC % Saturation Iron Saturation Ferritin Total Bilirubin Direct Bilirubin Neonat Total Bilirubin Neonat Direct Bilirubin Neonat Indirect Bili GGT AST ALT Alkaline Phosphatase Ammonia Creatine Kinase Troponin I NT-Pro-B Natriuret Pep Total Protein Albumin EGFR Vitamin B12 Folate Urine Color Urine Appearance Urine pH Ur Specific [place] Urine Protein Urine Glucose (UA) Urine Ketones Urine Blood Urine Nitrite Urine Bilirubin Urine Urobilinogen Ur Leukocyte Esterase Urine WBC (Auto) Urine RBC (Auto) U Hyaline Cast (Auto) Urine Bacteria (Auto) Squamous Epi Cells Auto Urine Yeast (Budding) Urine Ascorbic Acid Serum Alcohol Blood Type Antibody Screen Crossmatch 08/26/19 08/26/19 08/26/19 04:28 07:39 11:56 WBC RBC Hgb Hct MCV MCH MCHC RDW Plt Count Lymph % (Auto) [place] % (Auto) Eos % (Auto) Baso % (Auto) Reticulocyte # Absolute Neuts (auto) Absolute Lymphs (auto) Absolute Monos (auto) Absolute Eos (auto) Absolute Basos (auto) Seg Neutrophils % Retic Count (auto) Sodium 144.7 Potassium 4.6 Chloride 108 H Carbon Dioxide 25 Anion Gap 12 BUN 101 H Creatinine 4.34 H Est GFR ( Amer) 12 L Est GFR (Non-Af Amer) Est GFR (MDRD) Non-Af 10 L Glucose 116 H POC Glucose 121 H 145 H Calcium 9.8 Magnesium Iron TIBC % Saturation Iron Saturation Ferritin Total Bilirubin Direct Bilirubin Neonat Total Bilirubin Neonat Direct Bilirubin Neonat Indirect Bili GGT AST ALT Alkaline Phosphatase Ammonia Creatine Kinase Troponin I NT-Pro-B Natriuret Pep Total Protein Albumin EGFR Vitamin B12 Folate Urine Color Urine Appearance Urine pH Ur Specific [place] Urine Protein Urine Glucose (UA) Urine Ketones Urine Blood Urine Nitrite Urine Bilirubin Urine Urobilinogen Ur Leukocyte Esterase Urine WBC (Auto) Urine RBC (Auto) U Hyaline Cast (Auto) Urine Bacteria (Auto) Squamous Epi Cells Auto Urine Yeast (Budding) Urine Ascorbic Acid Serum Alcohol Blood Type Antibody Screen Crossmatch 08/26/19 08/26/19 08/27/19 16:28 21:32 06:49 WBC RBC Hgb Hct MCV MCH MCHC RDW Plt Count Lymph % (Auto) [place] % (Auto) Eos % (Auto) Baso % (Auto) Reticulocyte # Absolute Neuts (auto) Absolute Lymphs (auto) Absolute Monos (auto) Absolute Eos (auto) Absolute Basos (auto) Seg Neutrophils % Retic Count (auto) Sodium 145.0 Potassium 4.4 Chloride 110 H Carbon Dioxide 25 Anion Gap 10 BUN 98 H Creatinine 3.96 H Est GFR ( Amer) 14 L Est GFR (Non-Af Amer) Est GFR (MDRD) Non-Af 11 L Glucose 92 POC Glucose 186 H 170 H Calcium 9.4 Magnesium Iron TIBC % Saturation Iron Saturation Ferritin Total Bilirubin 1.1 Direct Bilirubin 0.6 H Neonat Total Bilirubin Not Reportable Neonat Direct Bilirubin Not Reportable Neonat Indirect Bili Not Reportable GGT AST 35 ALT 36 H Alkaline Phosphatase 515 H Ammonia Creatine Kinase Troponin I NT-Pro-B Natriuret Pep Total Protein 8.0 Albumin 3.6 EGFR Vitamin B12 Folate Urine Color Urine Appearance Urine pH Ur Specific [place] Urine Protein Urine Glucose (UA) Urine Ketones Urine Blood Urine Nitrite Urine Bilirubin Urine Urobilinogen Ur Leukocyte Esterase Urine WBC (Auto) Urine RBC (Auto) U Hyaline Cast (Auto) Urine Bacteria (Auto) Squamous Epi Cells Auto Urine Yeast (Budding) Urine Ascorbic Acid Serum Alcohol Blood Type Antibody Screen Crossmatch 08/27/19 08/27/19 08/27/19 08:50 11:09 16:05 WBC RBC Hgb Hct MCV MCH MCHC RDW Plt Count Lymph % (Auto) [place] % (Auto) Eos % (Auto) Baso % (Auto) Reticulocyte # Absolute Neuts (auto) Absolute Lymphs (auto) Absolute Monos (auto) Absolute Eos (auto) Absolute Basos (auto) Seg Neutrophils % Retic Count (auto) Sodium Potassium Chloride Carbon Dioxide Anion Gap BUN Creatinine Est GFR ( Amer) Est GFR (Non-Af Amer) Est GFR (MDRD) Non-Af Glucose POC Glucose 125 H 126 H 134 H Calcium Magnesium Iron TIBC % Saturation Iron Saturation Ferritin Total Bilirubin Direct Bilirubin Neonat Total Bilirubin Neonat Direct Bilirubin Neonat Indirect Bili GGT AST ALT Alkaline Phosphatase Ammonia Creatine Kinase Troponin I NT-Pro-B Natriuret Pep Total Protein Albumin EGFR Vitamin B12 Folate Urine Color Urine Appearance Urine pH Ur Specific [place] Urine Protein Urine Glucose (UA) Urine Ketones Urine Blood Urine Nitrite Urine Bilirubin Urine Urobilinogen Ur Leukocyte Esterase Urine WBC (Auto) Urine RBC (Auto) U Hyaline Cast (Auto) Urine Bacteria (Auto) Squamous Epi Cells Auto Urine Yeast (Budding) Urine Ascorbic Acid Serum Alcohol Blood Type Antibody Screen Crossmatch 08/27/19 08/28/19 08/28/19 21:14 05:24 07:49 WBC RBC Hgb Hct MCV MCH MCHC RDW Plt Count Lymph % (Auto) [place] % (Auto) Eos % (Auto) Baso % (Auto) Reticulocyte # Absolute Neuts (auto) Absolute Lymphs (auto) Absolute Monos (auto) Absolute Eos (auto) Absolute Basos (auto) Seg Neutrophils % Retic Count (auto) Sodium 143.3 Potassium 4.6 Chloride 109 H Carbon Dioxide 25 Anion Gap 9 BUN 99 H Creatinine 4.05 H Est GFR ( Amer) 13 L Est GFR (Non-Af Amer) Est GFR (MDRD) Non-Af 11 L Glucose 108 POC Glucose 176 H 110 Calcium 9.6 Magnesium Iron TIBC % Saturation Iron Saturation Ferritin Total Bilirubin 1.1 Direct Bilirubin 0.6 H Neonat Total Bilirubin Not Reportable Neonat Direct Bilirubin Not Reportable Neonat Indirect Bili Not Reportable GGT AST 34 ALT 34 Alkaline Phosphatase 464 H Ammonia Creatine Kinase Troponin I NT-Pro-B Natriuret Pep Total Protein 7.8 Albumin 3.5 EGFR Vitamin B12 Folate Urine Color Urine Appearance Urine pH Ur Specific [place] Urine Protein Urine Glucose (UA) Urine Ketones Urine Blood Urine Nitrite Urine Bilirubin Urine Urobilinogen Ur Leukocyte Esterase Urine WBC (Auto) Urine RBC (Auto) U Hyaline Cast (Auto) Urine Bacteria (Auto) Squamous Epi Cells Auto Urine Yeast (Budding) Urine Ascorbic Acid Serum Alcohol Blood Type Antibody Screen Crossmatch 08/28/19 08/28/19 08/28/19 11:50 16:21 21:19 WBC RBC Hgb Hct MCV MCH MCHC RDW Plt Count Lymph % (Auto) [place] % (Auto) Eos % (Auto) Baso % (Auto) Reticulocyte # Absolute Neuts (auto) Absolute Lymphs (auto) Absolute Monos (auto) Absolute Eos (auto) Absolute Basos (auto) Seg Neutrophils % Retic Count (auto) Sodium Potassium Chloride Carbon Dioxide Anion Gap BUN Creatinine Est GFR ( Amer) Est GFR (Non-Af Amer) Est GFR (MDRD) Non-Af Glucose POC Glucose 137 H 111 H 153 H Calcium Magnesium Iron TIBC % Saturation Iron Saturation Ferritin Total Bilirubin Direct Bilirubin Neonat Total Bilirubin Neonat Direct Bilirubin Neonat Indirect Bili GGT AST ALT Alkaline Phosphatase Ammonia Creatine Kinase Troponin I NT-Pro-B Natriuret Pep Total Protein Albumin EGFR Vitamin B12 Folate Urine Color Urine Appearance Urine pH Ur Specific [place] Urine Protein Urine Glucose (UA) Urine Ketones Urine Blood Urine Nitrite Urine Bilirubin Urine Urobilinogen Ur Leukocyte Esterase Urine WBC (Auto) Urine RBC (Auto) U Hyaline Cast (Auto) Urine Bacteria (Auto) Squamous Epi Cells Auto Urine Yeast (Budding) Urine Ascorbic Acid Serum Alcohol Blood Type Antibody Screen Crossmatch 08/29/19 08/29/19 08/29/19 05:29 08:08 11:53 WBC RBC Hgb Hct MCV MCH MCHC RDW Plt Count Lymph % (Auto) [place] % (Auto) Eos % (Auto) Baso % (Auto) Reticulocyte # Absolute Neuts (auto) Absolute Lymphs (auto) Absolute Monos (auto) Absolute Eos (auto) Absolute Basos (auto) Seg Neutrophils % Retic Count (auto) Sodium 142.2 Potassium 4.8 Chloride 109 H Carbon Dioxide 24 Anion Gap 9 BUN 97 H Creatinine 3.77 H Est GFR ( Amer) 15 L Est GFR (Non-Af Amer) Est GFR (MDRD) Non-Af 12 L Glucose 124 H POC Glucose 104 139 H Calcium 9.3 Magnesium Iron TIBC % Saturation Iron Saturation Ferritin Total Bilirubin 1.4 H Direct Bilirubin 0.9 H Neonat Total Bilirubin Not Reportable Neonat Direct Bilirubin Not Reportable Neonat Indirect Bili Not Reportable GGT AST 33 ALT 32 Alkaline Phosphatase 520 H Ammonia Creatine Kinase Troponin I NT-Pro-B Natriuret Pep Total Protein 8.1 Albumin 3.7 EGFR Vitamin B12 Folate Urine Color Urine Appearance Urine pH Ur Specific [place] Urine Protein Urine Glucose (UA) Urine Ketones Urine Blood Urine Nitrite Urine Bilirubin Urine Urobilinogen Ur Leukocyte Esterase Urine WBC (Auto) Urine RBC (Auto) U Hyaline Cast (Auto) Urine Bacteria (Auto) Squamous Epi Cells Auto Urine Yeast (Budding) Urine Ascorbic Acid Serum Alcohol Blood Type Antibody Screen Crossmatch 08/29/19 08/29/19 08/30/19 15:59 21:26 04:46 WBC RBC Hgb Hct MCV MCH MCHC RDW Plt Count Lymph % (Auto) [place] % (Auto) Eos % (Auto) Baso % (Auto) Reticulocyte # Absolute Neuts (auto) Absolute Lymphs (auto) Absolute Monos (auto) Absolute Eos (auto) Absolute Basos (auto) Seg Neutrophils % Retic Count (auto) Sodium 143.2 Potassium 4.7 Chloride 110 H Carbon Dioxide 24 Anion Gap 9 BUN 101 H Creatinine 3.67 H Est GFR ( Amer) 15 L Est GFR (Non-Af Amer) Est GFR (MDRD) Non-Af 12 L Glucose 101 POC Glucose 147 H 153 H Calcium 9.6 Magnesium Iron TIBC % Saturation Iron Saturation Ferritin Total Bilirubin 1.3 Direct Bilirubin 0.8 H Neonat Total Bilirubin Not Reportable Neonat Direct Bilirubin Not Reportable Neonat Indirect Bili Not Reportable GGT AST 34 ALT 32 Alkaline Phosphatase 535 H Ammonia Creatine Kinase Troponin I NT-Pro-B Natriuret Pep Total Protein 8.2 Albumin 3.7 EGFR Vitamin B12 Folate Urine Color Urine Appearance Urine pH Ur Specific [place] Urine Protein Urine Glucose (UA) Urine Ketones Urine Blood Urine Nitrite Urine Bilirubin Urine Urobilinogen Ur Leukocyte Esterase Urine WBC (Auto) Urine RBC (Auto) U Hyaline Cast (Auto) Urine Bacteria (Auto) Squamous Epi Cells Auto Urine Yeast (Budding) Urine Ascorbic Acid Serum Alcohol Blood Type Antibody Screen Crossmatch 08/30/19 08/30/19 08/30/19 07:56 11:21 15:36 WBC RBC Hgb Hct MCV MCH MCHC RDW Plt Count Lymph % (Auto) [place] % (Auto) Eos % (Auto) Baso % (Auto) Reticulocyte # Absolute Neuts (auto) Absolute Lymphs (auto) Absolute Monos (auto) Absolute Eos (auto) Absolute Basos (auto) Seg Neutrophils % Retic Count (auto) Sodium Potassium Chloride Carbon Dioxide Anion Gap BUN Creatinine Est GFR ( Amer) Est GFR (Non-Af Amer) Est GFR (MDRD) Non-Af Glucose POC Glucose 98 130 H 180 H Calcium Magnesium Iron TIBC % Saturation Iron Saturation Ferritin Total Bilirubin Direct Bilirubin Neonat Total Bilirubin Neonat Direct Bilirubin Neonat Indirect Bili GGT AST ALT Alkaline Phosphatase Ammonia Creatine Kinase Troponin I NT-Pro-B Natriuret Pep Total Protein Albumin EGFR Vitamin B12 Folate Urine Color Urine Appearance Urine pH Ur Specific [place] Urine Protein Urine Glucose (UA) Urine Ketones Urine Blood Urine Nitrite Urine Bilirubin Urine Urobilinogen Ur Leukocyte Esterase Urine WBC (Auto) Urine RBC (Auto) U Hyaline Cast (Auto) Urine Bacteria (Auto) Squamous Epi Cells Auto Urine Yeast (Budding) Urine Ascorbic Acid Serum Alcohol Blood Type Antibody Screen Crossmatch 08/30/19 08/31/19 08/31/19 21:19 05:54 05:54 WBC 5.8 RBC 3.20 L Hgb 9.8 L Hct 30.2 L MCV 95 MCH 30.7 MCHC 32.5 RDW 17.7 H Plt Count 100 L Lymph % (Auto) 15.6 [place] % (Auto) 13.2 H Eos % (Auto) 1.8 Baso % (Auto) 0.5 Reticulocyte # Absolute Neuts (auto) 4.0 Absolute Lymphs (auto) 0.9 Absolute Monos (auto) 0.8 Absolute Eos (auto) 0.1 Absolute Basos (auto) 0.0 Seg Neutrophils % 68.9 Retic Count (auto) Sodium 144.1 Potassium 4.5 Chloride 109 H Carbon Dioxide 23 Anion Gap 12 BUN 100 H Creatinine 3.44 H Est GFR ( Amer) 16 L Est GFR (Non-Af Amer) Est GFR (MDRD) Non-Af 13 L Glucose 107 POC Glucose 157 H Calcium 9.6 Magnesium Iron TIBC % Saturation Iron Saturation Ferritin Total Bilirubin 1.5 H Direct Bilirubin 0.9 H Neonat Total Bilirubin Not Reportable Neonat Direct Bilirubin Not Reportable Neonat Indirect Bili Not Reportable GGT AST 33 ALT 31 Alkaline Phosphatase 562 H Ammonia Creatine Kinase Troponin I NT-Pro-B Natriuret Pep Total Protein 8.0 Albumin 3.8 EGFR Vitamin B12 Folate Urine Color Urine Appearance Urine pH Ur Specific [place] Urine Protein Urine Glucose (UA) Urine Ketones Urine Blood Urine Nitrite Urine Bilirubin Urine Urobilinogen Ur Leukocyte Esterase Urine WBC (Auto) Urine RBC (Auto) U Hyaline Cast (Auto) Urine Bacteria (Auto) Squamous Epi Cells Auto Urine Yeast (Budding) Urine Ascorbic Acid Serum Alcohol Blood Type Antibody Screen Crossmatch 08/31/19 08/31/19 08/31/19 08:10 11:31 15:27 WBC RBC Hgb Hct MCV MCH MCHC RDW Plt Count Lymph % (Auto) [place] % (Auto) Eos % (Auto) Baso % (Auto) Reticulocyte # Absolute Neuts (auto) Absolute Lymphs (auto) Absolute Monos (auto) Absolute Eos (auto) Absolute Basos (auto) Seg Neutrophils % Retic Count (auto) Sodium Potassium Chloride Carbon Dioxide Anion Gap BUN Creatinine Est GFR ( Amer) Est GFR (Non-Af Amer) Est GFR (MDRD) Non-Af Glucose POC Glucose 111 H 144 H 151 H Calcium Magnesium Iron TIBC % Saturation Iron Saturation Ferritin Total Bilirubin Direct Bilirubin Neonat Total Bilirubin Neonat Direct Bilirubin Neonat Indirect Bili GGT AST ALT Alkaline Phosphatase Ammonia Creatine Kinase Troponin I NT-Pro-B Natriuret Pep Total Protein Albumin EGFR Vitamin B12 Folate Urine Color Urine Appearance Urine pH Ur Specific [place] Urine Protein Urine Glucose (UA) Urine Ketones Urine Blood Urine Nitrite Urine Bilirubin Urine Urobilinogen Ur Leukocyte Esterase Urine WBC (Auto) Urine RBC (Auto) U Hyaline Cast (Auto) Urine Bacteria (Auto) Squamous Epi Cells Auto Urine Yeast (Budding) Urine Ascorbic Acid Serum Alcohol Blood Type Antibody Screen Crossmatch Chest X-Ray 08/19/19 10:03 IMPRESSION: Cardiomegaly and vascular congestion. Similar findings were noted on prior study. Abdomen Ultrasound 08/23/19 00:00 IMPRESSION: Borderline hepatomegaly. Normal hepatic and portal veins. Cholelithiasis with slight thickening of the gallbladder wall but a negative sonographic Viera sign. SR] . SINUS RHYTHM [PLAA] . PROBABLE LEFT ATRIAL ABNORMALITY [MAYURI] . BORDERLINE LEFT AXIS DEVIATION [T0AL] . BORDERLINE T ABNORMALITIES, ANT-LAT LEADS IMPRESSION/RECOMMENDATION: 1. Episodes of bradycardia in a patient with present heart rate in the 60 bpm with a prior history of proximal atrial fibrillation. The patient is on Coreg 12.5 mg p.o. twice daily. We will decrease the dosage. 2. Acute on chronic kidney disease/failure with hyper kalemia on admission. At present potassium is normal. Nephrology on the case. Patient is on IV Lasix. 3. Acute on chronic CHRONIC DIASTOLIC HEART FAILURE: Her last echo was done in August 2018. No showed a normal left retrograde systolic function. Nevertheless with the patient's renal failure due to volume overload there could be systolic heart failure associated with acute on chronic diastolic heart failure. 4. 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 5. Paroxysmal atrial fibrillation: At present the patient is in sinus rhythm. 6. HYPERTENSION: Well controlled. Continue her current medications. 7. CORONARY ARTERY DISEASE: Prior history of myocardial infarction and history of coronary artery bypass graft surgery. No anginal symptoms. Her last stress test was in 2018 which showed small areas of myocardial infarction with no reversible ischemia. 8.. CHRONIC OBSTRUCTIVE PULMONARY DISEASE: Continue current inhalers. 9. PERIPHERAL ARTERIAL DISEASE.: Patient with nonhealing ulcers of her left heel. 10. Elevated bilirubin with normal liver enzymes and abnormal alk phos: Doubt that this is obstructive jaundice. Will check a nonfasting liver function test to see if the patient does have Gilbert's syndrome with the alk phos being secondary to the patient's left heel ulcer and hence would recommend getting an x-ray to make sure the patient does not have osteomyelitis. 11. Gallstones by abdominal ultrasound with no evidence of CBD obstruction.? Abdominal pain and nausea and vomiting secondary to this doubt 12. OBSTRUCTIVE SLEEP APNEA: Would recommend place the patient the patient on CPAP at night. 13.. DIABETES MELLITUS with peripheral arterial disease, and chronic kidney disease. Stable. . 14. Obesity. Medications reviewed. Medications adjusted. Medical decision making is of high complexity. Medical regimen and management plan discussed with Dr. Dyer covering for Dr. Bess. 60 minutes spent as patient more than 50% of time spent in direct patient care. Will follow
[2019-08-31] MEDS: CARVEDILOL 6.25 MG TABLET PO SCH (21:37)
[2019-08-31] MEDS: FAMOTIDINE 20 MG TABLET PO SCH (21:38)
[2019-08-31 21:58] LABS: ALBUMIN 3.3 g/dL (3.5-5.0); ALKALINE PHOSPHATASE 486 U/L (38-126); ASPARTATE AMINO TRANSFERASE 30 U/L (14-36); BILIRUBIN,DIRECT 0.7 mg/dL (0.0-0.4); BILIRUBIN,TOTAL 1.2 mg/dL (0.2-1.3); TOTAL PROTEIN 7.4 g/dL (6.3-8.2)
[2019-09-01] MEDS: HEPARIN SOD (PORCINE) 5,000 UNIT/ML 1 ML VIAL SUBCUT SCH ×3 (05:25→22:05)
[2019-09-01] MEDS: HYDRALAZINE HCL 50 MG TABLET PO SCH ×3 (05:27→22:04)
[2019-09-01 07:30] LABS: ALBUMIN 3.5 g/dL (3.5-5.0); ALKALINE PHOSPHATASE 503 U/L (38-126); ANION GAP 10 (5-19); ASPARTATE AMINO TRANSFERASE 32 U/L (14-36); BILIRUBIN,DIRECT 0.9 mg/dL (0.0-0.4); BILIRUBIN,TOTAL 1.5 mg/dL (0.2-1.3); BLOOD UREA NITROGEN 99 mg/dL (7-20); CALCIUM 9.5 mg/dL (8.4-10.2); CARBON DIOXIDE 22 mmol/L (22-30); CHLORIDE 112 mmol/L (98-107); GLUCOSE 123 mg/dL (75-110); POTASSIUM 4.6 mmol/L (3.6-5.0); TOTAL PROTEIN 7.8 g/dL (6.3-8.2)
[2019-09-01] MEDS: INSULIN LISPRO 100 UNIT/ML 3 ML VIAL SUBCUT SCH ×4 (08:45→22:05)
--- NOTE | 2019-09-01 09:40 | PDOC PROGRESS REPORT ---
Subjective Progress Note for:: 09/01/19 Subjective:: Patient is currently doing same Patient seen by Dr. Garcia and suggested patient have Gilbert's symptoms due to the elevated bilirubin most likely a fasting nonfasting is getting better so he thought patient have Gilbert's syndrome Patient otherwise doing well Reason For Visit: ACUTE ON CHRONIC KIDNYE FAILURE WITH HYPERKALEMIA, Physical Exam Vital Signs: Temp Pulse Resp BP Pulse Ox 97.6 F 57 L 20 121/64 100 09/01/19 07:57 09/01/19 07:57 09/01/19 07:57 09/01/19 07:57 09/01/19 07:57 Intake & Output 08/31/19 09/01/19 09/02/19 06:59 06:59 06:59 Intake Total 802 340 Output Total 850 1025 Balance -48 -685 Weight 105.1 kg 105.9 kg General appearance: PRESENT: no acute distress, well-developed, well-nourished Head exam: PRESENT: atraumatic, normocephalic Eye exam: PRESENT: conjunctiva pink, EOMI, PERRLA. ABSENT: scleral icterus Ear exam: PRESENT: normal external ear exam Mouth exam: PRESENT: moist, tongue midline Neck exam: PRESENT: full ROM. ABSENT: carotid bruit, JVD, lymphadenopathy, thyromegaly Respiratory exam: PRESENT: clear to auscultation lele Cardiovascular exam: PRESENT: RRR. ABSENT: diastolic murmur, rubs, systolic murmur Pulses: PRESENT: normal dorsalis pedis pul, +2 pedal pulses bilateral Vascular exam: PRESENT: normal capillary refill GI/Abdominal exam: PRESENT: normal bowel sounds, soft. ABSENT: distended, guarding, mass, organolmegaly, rebound, tenderness Rectal exam: PRESENT: deferred Neurological exam: PRESENT: alert, awake, oriented to person. ABSENT: motor sensory deficit Psychiatric exam: PRESENT: appropriate affect, normal mood. ABSENT: homicidal ideation, suicidal ideation Skin exam: PRESENT: dry, intact, warm. ABSENT: cyanosis, rash Results Laboratory Results: 09/01/19 06:43 09/01/19 06:43 08/31/19 09/01/19 09/01/19 21:15 06:43 06:43 WBC Cancelled RBC Cancelled Hgb Cancelled Hct Cancelled MCV Cancelled MCH Cancelled MCHC Cancelled RDW Cancelled Plt Count Cancelled Seg Neutrophils % Cancelled Sodium 143.7 Potassium 4.6 Chloride 112 H Carbon Dioxide 22 Anion Gap 10 BUN 99 H Creatinine 3.37 H Est GFR ( Amer) 17 L Glucose 123 H Calcium 9.5 Total Bilirubin 1.2 1.5 H AST 30 32 Alkaline Phosphatase 486 H 503 H Total Protein 7.4 7.8 Albumin 3.3 L 3.5 08/27/19 12:15 Foot - Diabetic Ulcer Gram Stain - Final 08/27/19 12:15 Foot - Diabetic Ulcer Wound Culture - Final Pseudomonas Aeruginosa Skin [place] 08/19/19 08/19/19 03:49 03:49 Creatine Kinase < 20 L Troponin I < 0.012 NT-Pro-B Natriuret Pep 9540 H Impressions: Chest X-Ray 08/19/19 10:03 IMPRESSION: Cardiomegaly and vascular congestion. Similar findings were noted on prior study. Abdomen Ultrasound 08/23/19 00:00 IMPRESSION: Borderline hepatomegaly. Normal hepatic and portal veins. Cholelithiasis with slight thickening of the gallbladder wall but a negative sonographic Viera sign. Assessment & Plan - Diagnosis (1) [id number]-[id number] renal failure Qualifiers: Acute renal failure type: unspecified Chronic kidney disease stage: stage 4 (severe) Qualified Code(s): N17.9 - Acute kidney failure, unspecified; N18.4 - Chronic kidney disease, stage 4 (severe) Is this a current diagnosis for this admission?: Yes Plan: Patient has been admitted with his features suggestive of fluid overload in the background of cor pulmonale and acute kidney injury with electrolyte abnormalities in the form of hyperkalemia. Initiate work-up for her abnormal LFTs including imaging studies and see if needs for surgical consult. Meanwhile starting her on intravenous diuretics. 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 Is this a current diagnosis for this admission?: Yes (6) Abdominal pain Qualifiers: Abdominal location: right upper quadrant Qualified Code(s): R10.11 - Right upper quadrant pain Is this a current diagnosis for this admission?: Yes (7) Acute combined systolic and diastolic heart failure Is this a current diagnosis for this admission?: Yes (8) Anemia of chronic disease Is this a current diagnosis for this admission?: Yes - Time Time Spent with patient: 15-24 minutes Level of Care: IMCU Medications reviewed and adjusted accordingly: Yes Anticipated discharge: Other Within: Other - Plan Summary Plan Summary: Continues to current medications
[2019-09-01] MEDS: MECLIZINE HCL 12.5 MG TABLET PO SCH ×3 (09:47→17:59)
[2019-09-01] MEDS: GABAPENTIN 300 MG CAPSULE PO SCH ×2 (09:48→22:04)
[2019-09-01] MEDS: FLUCONAZOLE 100 MG TABLET PO SCH (09:48)
[2019-09-01] MEDS: FUROSEMIDE INJ/PF 20 MG/2 ML SDV IV SCH (09:48)
[2019-09-01] MEDS: ASCORBIC ACID 500 MG TABLET PO SCH (09:48)
[2019-09-01] MEDS: OLOPATADINE HCL 0.1% OPH SOLN 5 ML OU SCH (09:49)
[2019-09-01 11:11] LABS: ABSOLUTE EOSINOPHILS # (AUTO) 0.1 10^3/uL (0.0-0.6); HEMOGLOBIN 9.2 g/dL (12.0-15.5); RED CELL DISTRIBUTION WIDTH 17.4 % (11.5-14.0); TOTAL CELLS COUNTED % (AUTO) 100 %
[2019-09-01 11:16] LABS: ABSOLUTE MONOCYTES (AUTO) 0.7 10^3/uL (0.1-1.4); ABSOLUTE NEUT (AUTO) 3.4 10^3/uL (1.7-8.2); BASOPHILS % (AUTO) 0.7 % (0-2); EOSINOPHILS % (AUTO) 2.1 % (0-6); HEMATOCRIT 28.6 % (36.0-47.0); LYMPHOCYTES % (AUTO) 18.8 % (13-45); MEAN CORPUSCULAR HEMOGLOBIN 30.2 pg (27.0-33.4); MEAN CORPUSCULAR HGB CONC 32.2 g/dL (32.0-36.0); MEAN CORPUSCULAR VOLUME 94 fl (80-97); MONOCYTES % (AUTO) 13.1 % (3-13); PLATELET COUNT 101 10^3/uL (150-450); RED BLOOD COUNT 3.05 10^6/uL (3.72-5.28); SEGMENTED NEUTROPHILS % (AUTO) 65.3 % (42-78); WHITE BLOOD COUNT 5.2 10^3/uL (4.0-10.5)
[2019-09-01] MEDS: CARVEDILOL 6.25 MG TABLET PO SCH ×2 (12:05→22:04)
--- NOTE | 2019-09-01 19:26 | PDOC PROGRESS REPORT ---
Subjective Progress Note for:: 08/30/19 Subjective:: Patient denied any chest pain or difficulty with breathing. Currently on IV Lasix with discontinuation of her IV fluid at this time. Her left breast swelling is much better today. No abdominal pain, nausea or vomiting. No fever or chills. Reason For Visit: ACUTE ON CHRONIC KIDNYE FAILURE WITH HYPERKALEMIA, Physical Exam Vital Signs: Temp Pulse Resp BP Pulse Ox 97.5 F 62 20 130/60 H 98 08/30/19 05:18 08/30/19 07:00 08/30/19 05:18 08/30/19 05:18 08/30/19 03:30 Intake & Output 08/29/19 08/30/19 08/31/19 06:59 06:59 06:59 Intake Total 2429 1976 Output Total 805 1075 Balance 1624 901 Weight 106.1 kg 102.5 kg Physical Exam: General appearance: PRESENT: no acute distress, obese Head exam: PRESENT: atraumatic, normocephalic Eye exam: PRESENT: conjunctiva pink. ABSENT: pallor, scleral icterus Respiratory exam: PRESENT: clear to auscultation lele, decreased breath sounds - at lung bases Cardiovascular exam: PRESENT: RRR, +S1, +S2. ABSENT: diastolic murmur, systolic murmur GI/Abdominal exam: PRESENT: normal bowel sounds, soft. ABSENT: distended, guarding, mass, organomegaly, rebound, tenderness Extremities exam: PRESENT: pedal edema - chronic bilateral to legs, left breast and abdominal wall edema Neurological exam: PRESENT: alert, awake, oriented to person, oriented to place, oriented to time, oriented to situation Psychiatric exam: PRESENT: appropriate affect, normal mood. ABSENT: homicidal ideation, suicidal ideation Skin exam: PRESENT: dry, warm, other - chronic left foot non healing diabetic foot ulcer Results Laboratory Results: 08/24/19 06:30 08/30/19 04:46 08/30/19 04:46 Sodium 143.2 Potassium 4.7 Chloride 110 H Carbon Dioxide 24 Anion Gap 9 BUN 101 H Creatinine 3.67 H Est GFR ( Amer) 15 L Glucose 101 Calcium 9.6 Total Bilirubin 1.3 AST 34 Alkaline Phosphatase 535 H Total Protein 8.2 Albumin 3.7 08/19/19 08/19/19 03:49 03:49 Creatine Kinase < 20 L Troponin I < 0.012 NT-Pro-B Natriuret Pep 9540 H Impressions: Chest X-Ray 08/19/19 10:03 IMPRESSION: Cardiomegaly and vascular congestion. Similar findings were noted on prior study. Abdomen Ultrasound 08/23/19 00:00 IMPRESSION: Borderline hepatomegaly. Normal hepatic and portal veins. Cholelithiasis with slight thickening of the gallbladder wall but a negative sonographic Viera sign. Assessment & Plan - Diagnosis (1) Acute hyperkalemia Is this a current diagnosis for this admission?: Yes (2) Mcexn-hg-pcdecyk renal failure Qualifiers: Acute renal failure type: unspecified Chronic kidney disease stage: stage 4 (severe) Qualified Code(s): N17.9 - Acute kidney failure, unspecified; N18.4 - Chronic kidney disease, stage 4 (severe) Is this a current diagnosis for this admission?: Yes (3) Chronic combined systolic and diastolic CHF (congestive heart failure) Is this a current diagnosis for this admission?: Yes (4) Diabetes mellitus type 2 in obese Is this a current diagnosis for this admission?: Yes (5) Anemia of chronic disease Is this a current diagnosis for this admission?: Yes (6) Abdominal pain, chronic, bilateral lower quadrant Is this a current diagnosis for this admission?: Yes (7) Diabetic ulcer of left foot associated with type 2 diabetes mellitus Qualifiers: Diabetic foot ulcer location: heel Non-pressure ulcer stage: unspecified non-pressure ulcer stage Qualified Code(s): E11.621 - Type 2 diabetes mellitus with foot ulcer; L97.429 - Non-pressure chronic ulcer of left heel and midfoot with unspecified severity Is this a current diagnosis for this admission?: Yes (8) Chronic use of opiate for therapeutic purpose Is this a current diagnosis for this admission?: Yes (9) Obesity (BMI 30-39.9) Is this a current diagnosis for this admission?: Yes (10) [place] cystitis Is this a current diagnosis for this admission?: Yes - Time Time Spent with patient: 25-34 minutes Level of Care: IMCU Medications reviewed and adjusted accordingly: Yes Anticipated discharge: SNF Within: Other - Inpatient Certification Based on my medical assessment, after consideration of the patient's com orbidities, presenting symptoms, or acuity I expect that the services needed warrant INPATIENT care.: Yes I certify that my determination is in accordance with my understanding of Medicare's requirements for reasonable and necessary INPATIENT services [42 CFR 412.3e].: Yes Medical Necessity: Significant Comorbidiites Make Outpatient Treatment Too Risky, Need Close Monitoring Due to Risk of Patient Decompensation, Need For Continuous Telemetry Monitoring, Risk of Complication if Not Cared For in Hospital, Risk of Diagnosis Which Will Require Inpatient Eval/Care/Monitoring Post Hospital Care: D/C or Transfer Summary - Plan Summary Plan Summary: Her left foot wound culture will be addressed through local wound care. There is no clinical indices to support need for systemic antibiotic therapy at this time.
[2019-09-01] MEDS: FAMOTIDINE 20 MG TABLET PO SCH (22:05)
[2019-09-02 08:19] LABS: ANION GAP 9 (5-19); BLOOD UREA NITROGEN 99 mg/dL (7-20); CALCIUM 9.6 mg/dL (8.4-10.2); CARBON DIOXIDE 24 mmol/L (22-30); CHLORIDE 111 mmol/L (98-107); GLUCOSE 112 mg/dL (75-110); POTASSIUM 4.8 mmol/L (3.6-5.0)
[2019-09-02] MEDS: INSULIN LISPRO 100 UNIT/ML 3 ML VIAL SUBCUT SCH ×4 (08:29→22:02)
[2019-09-02] MEDS: MECLIZINE HCL 12.5 MG TABLET PO SCH ×3 (10:23→17:35)
[2019-09-02] MEDS: ASCORBIC ACID 500 MG TABLET PO SCH (10:23)
[2019-09-02] MEDS: OLOPATADINE HCL 0.1% OPH SOLN 5 ML OU SCH (10:23)
[2019-09-02] MEDS: FLUCONAZOLE 100 MG TABLET PO SCH (10:23)
[2019-09-02] MEDS: GABAPENTIN 300 MG CAPSULE PO SCH ×2 (10:23→22:05)
[2019-09-02] MEDS: CARVEDILOL 6.25 MG TABLET PO SCH ×2 (10:23→22:04)
[2019-09-02] MEDS: FUROSEMIDE INJ/PF 20 MG/2 ML SDV IV SCH (10:24)
--- NOTE | 2019-09-02 11:38 | PDOC PROGRESS REPORT ---
Subjective Progress Note for:: 09/02/19 Reason For Visit: Patient seen today. She is generally feeling but she is questioning why she not getting better and why she is staying in the hospital. She denies any obvious chest pain or shortness of breath but then she hardly exerts. Appetite is plus minus. No history nausea vomiting. Labs and medications were reviewed that shows renal numbers are rather static. She is not on BiPAP at night. Urine output is rather dropping compared to yesterday. Discussions were done with the treating nurse. Physical Exam Vital Signs: Temp Pulse Resp BP Pulse Ox 97.5 F 61 16 139/66 H 96 09/02/19 07:59 09/02/19 07:59 09/02/19 07:59 09/02/19 07:59 09/02/19 07:59 Intake & Output 09/01/19 09/02/19 09/03/19 06:59 06:59 06:59 Intake Total 340 1242 Output Total 1025 750 Balance -685 492 Weight 105.9 kg 105.5 kg General appearance: PRESENT: no acute distress Respiratory exam: PRESENT: clear to auscultation lele, decreased breath sounds. ABSENT: crackles Cardiovascular exam: PRESENT: +S1, +S2 GI/Abdominal exam: PRESENT: normal bowel sounds, soft. ABSENT: organomegaly, tenderness Extremities exam: PRESENT: pedal edema - 1-2+ on the left side and 1+ on the right side. Neurological exam: PRESENT: alert, awake, oriented to person, oriented to place Psychiatric exam: PRESENT: anxious Skin exam: PRESENT: mottled - Venous stasis changes in both lower extremities especially of the left leg. Results Laboratory Results: 09/01/19 11:02 09/02/19 07:39 09/01/19 09/02/19 09/02/19 11:02 05:57 07:39 WBC 5.2 RBC 3.05 L Hgb 9.2 L Hct 28.6 L MCV 94 MCH 30.2 MCHC 32.2 RDW 17.4 H Plt Count 101 L Seg Neutrophils % 65.3 Sodium Cancelled 144.2 Potassium Cancelled 4.8 Chloride Cancelled 111 H Carbon Dioxide Cancelled 24 Anion Gap Cancelled 9 BUN Cancelled 99 H Creatinine Cancelled 3.30 H Est GFR ( Amer) Cancelled 17 L Est GFR (Non-Af Amer) Cancelled Glucose Cancelled 112 H Calcium Cancelled 9.6 08/27/19 12:15 Foot - Diabetic Ulcer Gram Stain - Final 08/27/19 12:15 Foot - Diabetic Ulcer Wound Culture - Final Pseudomonas Aeruginosa Skin [place] 08/19/19 08/19/19 03:49 03:49 Creatine Kinase < 20 L Troponin I < 0.012 NT-Pro-B Natriuret Pep 9540 H Impressions: Chest X-Ray 08/19/19 10:03 IMPRESSION: Cardiomegaly and vascular congestion. Similar findings were noted on prior study. Abdomen Ultrasound 08/23/19 00:00 IMPRESSION: Borderline hepatomegaly. Normal hepatic and portal veins. Cholelithiasis with slight thickening of the gallbladder wall but a negative sonographic Viera sign. Assessment & Plan - Diagnosis (1) Fcyhq-xj-nipnbkf renal failure Qualifiers: Acute renal failure type: unspecified Chronic kidney disease stage: stage 4 (severe) Qualified Code(s): N17.9 - Acute kidney failure, unspecified; N18.4 - Chronic kidney disease, stage 4 (severe) Is this a current diagnosis for this admission?: Yes Plan: Nonoliguric. Static renal numbers. Wonder if there is any contributing factors from possible chronic cholecystitis even though she is currently asymptomatic/ any underlying chronic infection of her right heel/ Congestive heart failure from pulmonary hypertension. Besides that she has obviously got clinically moderately severe pulmonary hypertension.Continue on current guidelines. I believe she would benefit from being on BiPAP at night. So far she has gained approximately 10 kg since admission. Since renal numbers are static at 3-4 and her baseline is close to 2, I believe if she is not going to respond she would benefit from going on temporary dialysis especially for ultrafiltration and fluid removal. Discussed this with patient who is willing to proceed. I explained about the procedure and the complications and she understands. If she is not responding plan for dialysis on Monday.Monitor. (2) Acute hyperkalemia Is this a current diagnosis for this admission?: Yes Plan: Resolved. (3) Obstructive jaundice Is this a current diagnosis for this admission?: Yes Plan: Follow-up on labs.I am going to leave further management of this to Dr. Bess. (4) Cholelithiasis Is this a current diagnosis for this admission?: Yes Plan: Status quo. Abdominal ultrasound showed features suggestive of choledocholithiasis with thickened gallbladder. Currently she is not complaining of any abdominal pains. (5) UTI (urinary tract infection) Qualifiers: Urinary tract infection type: site unspecified Hematuria presence: with hematuria Qualified Code(s): N39.0 - Urinary tract infection, site not specif ied; R31.9 - Hematuria, unspecified Plan: Likely [place] cystitis. (6) Anemia of chronic disease Is this a current diagnosis for this admission?: Yes Plan: Currently stable. Monitor (7) Diabetes mellitus type 2 in obese Is this a current diagnosis for this admission?: Yes Plan: As per PCP. (8) HTN (hypertension) Qualifiers: Hypertension type: essential hypertension Qualified Code(s): I10 - Essential (primary) hypertension Plan: Well controlled. Monitor. (9) Cor pulmonale Is this a current diagnosis for this admission?: Yes Plan: Status quo.Reviewed last echo done late in 2019 which had shown moderate MR and features indicative of moderately severe pulmonary hypertension/cor pulmonale.I was wondering whether she would benefit from being on BiPAP especially at nighttime. 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
[2019-09-02] MEDS: HEPARIN SOD (PORCINE) 5,000 UNIT/ML 1 ML VIAL SUBCUT SCH ×3 (12:37→22:01)
[2019-09-02] MEDS: HYDRALAZINE HCL 50 MG TABLET PO SCH ×3 (12:37→22:05)
--- NOTE | 2019-09-02 17:06 | PDOC PROGRESS REPORT ---
Subjective Progress Note for:: 09/02/19 Subjective:: Patient denied any chest pain or difficulty with breathing. No abdominal pain, nausea or vomiting. No fever or chills. Interval events and input appreciated. Overall response to current treatment minimal. She will benefit from renal supplementation for overall fluid management. Her blood pressure and Oxygen saturation are satisfactory. No clinical indices for significant infection. Her wound culture from chronic left foot wound is managed with local wound dressing. Reason For Visit: ACUTE ON CHRONIC KIDNYE FAILURE WITH HYPERKALEMIA, Physical Exam Vital Signs: Temp Pulse Resp BP Pulse Ox 97.7 F 59 L 16 137/68 H 92 09/02/19 11:46 09/02/19 14:00 09/02/19 11:46 09/02/19 11:46 09/02/19 11:46 Intake & Output 09/01/19 09/02/19 09/03/19 06:59 06:59 06:59 Intake Total 340 1242 1128 Output Total 1025 750 300 Balance -685 492 828 Weight 105.9 kg 105.5 kg Physical Exam: General appearance: PRESENT: no acute distress, obese Head exam: PRESENT: atraumatic, normocephalic Eye exam: PRESENT: conjunctiva pink. ABSENT: pallor, scleral icterus Respiratory exam: PRESENT: clear to auscultation lele, decreased breath sounds - at lung bases Cardiovascular exam: PRESENT: RRR, +S1, +S2. ABSENT: diastolic murmur, systolic murmur GI/Abdominal exam: PRESENT: normal bowel sounds, soft. ABSENT: distended, guarding, mass, organomegaly, rebound, tenderness Extremities exam: PRESENT: pedal edema - chronic bilateral to legs, left >> right leg, improved left breast and abdominal wall edema Neurological exam: PRESENT: alert, awake, oriented to person, oriented to place, oriented to time, oriented to situation Psychiatric exam: PRESENT: appropriate affect, normal mood. ABSENT: homicidal ideation, suicidal ideation Skin exam: PRESENT: dry, warm, other - chronic left foot non healing diabetic foot ulcer Results Laboratory Results: 09/01/19 11:02 09/02/19 07:39 09/02/19 09/02/19 05:57 07:39 Sodium Cancelled 144.2 Potassium Cancelled 4.8 Chloride Cancelled 111 H Carbon Dioxide Cancelled 24 Anion Gap Cancelled 9 BUN Cancelled 99 H Creatinine Cancelled 3.30 H Est GFR ( Amer) Cancelled 17 L Est GFR (Non-Af Amer) Cancelled Glucose Cancelled 112 H Calcium Cancelled 9.6 08/19/19 08/19/19 03:49 03:49 Creatine Kinase < 20 L Troponin I < 0.012 NT-Pro-B Natriuret Pep 9540 H Impressions: Chest X-Ray 08/19/19 10:03 IMPRESSION: Cardiomegaly and vascular congestion. Similar findings were noted on prior study. Abdomen Ultrasound 08/23/19 00:00 IMPRESSION: Borderline hepatomegaly. Normal hepatic and portal veins. Cholelithiasis with slight thickening of the gallbladder wall but a negative sonographic Viera sign. Assessment & Plan - Diagnosis (1) Acute hyperkalemia Is this a current diagnosis for this admission?: Yes (2) Lhbha-kf-qtigmzp renal failure Qualifiers: Acute renal failure type: unspecified Chronic kidney disease stage: stage 4 (severe) Qualified Code(s): N17.9 - Acute kidney failure, unspecified; N18.4 - Chronic kidney disease, stage 4 (severe) Is this a current diagnosis for this admission?: Yes (3) Chronic combined systolic and diastolic CHF (congestive heart failure) Is this a current diagnosis for this admission?: Yes (4) Diabetes mellitus type 2 in obese Is this a current diagnosis for this admission?: Yes (5) Anemia of chronic disease Is this a current diagnosis for this admission?: Yes (6) Abdominal pain, chronic, bilateral lower quadrant Is this a current diagnosis for this admission?: Yes (7) Diabetic ulcer of left foot associated with type 2 diabetes mellitus Qualifiers: Diabetic foot ulcer location: heel Non-pressure ulcer stage: unspecified non-pressure ulcer stage Qualified Code(s): E11.621 - Type 2 diabetes mellitus with foot ulcer; L97.429 - Non-pressure chronic ulcer of left heel and midfoot with unspecified severity Is this a current diagnosis for this admission?: Yes (8) Chronic use of opiate for therapeutic purpose Is this a current diagnosis for this admission?: Yes (9) Obesity (BMI 30-39.9) Is this a current diagnosis for this admission?: Yes (10) [place] cystitis Is this a current diagnosis for this admission?: Yes (11) Asymptomatic cholelithiasis Is this a current diagnosis for this admission?: Yes Plan: She remain symptom free presently. Her morbidities will limit any surgical intervention at this time. Her elevated Alk. phos and GGT with variable total bilirubin elevation can be explained based of her cholelithiasis. - Time Time Spent with patient: 35 or more minutes Level of Care: IMCU Medications reviewed and adjusted accordingly: Yes Anticipated discharge: SNF Within: Other - Inpatient Certification Based on my medical assessment, after consideration of the patient's comorbidities, presenting symptoms, or acuity I expect that the services needed warrant INPATIENT care.: Yes I certify that my determination is in accordance with my understanding of Medicare's requirements for reasonable and necessary INPATIENT services [42 CFR 412.3e].: Yes Medical Necessity: Significant Comorbidiites Make Outpatient Treatment Too Risky, Need Close Monitoring Due to Risk of Patient Decompensation, Need For Continuous Telemetry Monitoring, Risk of Complication if Not Cared For in Hospital, Risk of Diagnosis Which Will Require Inpatient Eval/Care/Monitoring Post Hospital Care: D/C Branch Sales And Service Representative Documentation - Plan Summary Plan Summary: Continue current medication management and monitor renal indices.
[2019-09-02] MEDS: FAMOTIDINE 20 MG TABLET PO SCH (22:05)
--- NOTE | 2019-09-02 23:19 | Progress Note ---
Provider Note Provider Note: CARDIOLOGY PROGRESS NOTE by Dr. Gema Garcia on 09/19/2019. SUBJECTIVE: The patient's heart rate is never gone below the high 50s. She her blood pressure is stable. She is not symptomatic from bradycardia. She has vague abdominal complaints. And complains of nausea. There is no chest pain or discomfort. There is no shortness of breath. There is no PND orthopnea. Her leg edema is slightly improved. There is no recurrence of atrial fibrillation. And no ventricle arrhythmia seen on the monitor. PHYSICAL physical EXAMINATION: The patient is morbidly obese. In no acute distress. Selected Entries 09/02/19 16:55 Temperature 97.5 F Temperature Oral Source Respiratory 16 Rate Blood Pressure 136/73 H Blood Pressure 94 Mean BP Location Left Arm BP Position Supine O2 Sat by Pulse 98 Oximetry Oxygen Flow 1.00 Rate Oxygen Delivery Nasal Cannula Method HEENT: Head is atraumatic/normocephalic. EYES: Pupils are equal round regular reactive to light accommodation external ocular movements are normal. There is no conjunctival pallor there is no scleral icterus. ENT is negative. Neck is supple there is no JVD carotids are equal there is no bruit there is no lymphadenopathy there is no goiter trachea is central.Lungs: There is diminished air entry and prolonged expiration without any rhonchi rales or wheezing. On percussion there is hyperresonance throughout. There are no rales of CHF. HEART: S1-S2 is heard there is no S3 gallop there is no S4 gallop there is a systolic murmur in the left sternal border and apex there is no rub. ABDOMEN: Abdomen is soft nontender there is no hepatosplenomegaly. Bowel sounds well heard there are no tender areas of masses. EXTREMITIES femorals are diminished. Leg pulses are difficult to palpate. There are no femoral bruits. There is dressing on the ulcers of both nonhealing ulcers of the feet which are. There is no pedal edema. There is no DVT or cellulitis there is no calf tenderness. 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 PSYCHIATRIC: The patient's judgment and insight are intact her affect is normal. Chest X-Ray 08/19/19 10:03 IMPRESSION: Cardiomegaly and vascular congestion. Similar findings were noted on prior study. Abdomen Ultrasound 08/23/19 00:00 IMPRESSION: Borderline hepatomegaly. Normal hepatic and portal veins. Cholelithiasis with slight thickening of the gallbladder wall but a negative sonographic Viera sign. Labs- All tests 24 hr 09/02/19 09/02/19 09/02/19 05:57 07:39 07:58 Sodium Cancelled 144.2 Potassium Cancelled 4.8 Chloride Cancelled 111 H Carbon Dioxide Cancelled 24 Anion Gap Cancelled 9 BUN Cancelled 99 H Creatinine Cancelled 3.30 H Est GFR ( Amer) Cancelled 17 L Est GFR (Non-Af Amer) Cancelled Est GFR (MDRD) Non-Af Cancelled 14 L Glucose Cancelled 112 H POC Glucose 120 H Calcium Cancelled 9.6 EGFR Cancelled 09/02/19 09/02/19 09/02/19 11:44 16:54 21:18 Sodium Potassium Chloride Carbon Dioxide Anion Gap BUN Creatinine Est GFR ( Amer) Est GFR (Non-Af Amer) Est GFR (MDRD) Non-Af Glucose POC Glucose 141 H 175 H 116 H Calcium EGFR IMPRESSION/RECOMMENDATION: 1. Episodes of bradycardia. This is improved with the dosage of Coreg being decreased. 2. Acute on chronic kidney disease/failure with hyper kalemia on admission. At present potassium is normal. Nephrology on the case. Patient is on IV Lasix. 3. Acute on chronic CHRONIC DIASTOLIC HEART FAILURE: Her last echo was done in August 2018. showed a normal left retrograde systolic function. Nevertheless with the patient's renal failure due to volume overload there could be systolic heart failure associated with acute on chronic diastolic heart failure. We will repeat echocardiographic to assess LV ejection fraction. 4. 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 5. Paroxysmal atrial fibrillation: At present the patient is in sinus rhythm. 6. HYPERTENSION: Well controlled. Continue her current medications. 7. CORONARY ARTERY DISEASE: Prior history of myocardial infarction and history of coronary artery bypass graft surgery. No anginal symptoms. Her last stress test was in 2018 which showed small areas of myocardial infarction with no reversible ischemia. 8.. CHRONIC OBSTRUCTIVE PULMONARY DISEASE: Continue current inhalers. 9. PERIPHERAL ARTERIAL DISEASE.: Patient with nonhealing ulcers of her left heel. 10. Elevated bilirubin with normal liver enzymes and abnormal alk phos: Doubt that this is obstructive jaundice. Will check a nonfasting liver function test to see if the patient does have Gilbert's syndrome with the alk phos being secondary to the patient's left heel ulcer and hence would recommend getting an x-ray to make sure the patient does not have osteomyelitis. 11. Gallstones by abdominal ultrasound with no evidence of CBD obstruction. Seems to be asymptomatic. 12. OBSTRUCTIVE SLEEP APNEA: Would recommend place the patient the patient on CPAP at night. 13.. DIABETES MELLITUS with peripheral arterial disease, and chronic kidney disease. Stable. . 14. Obesity. Medications reviewed. Medical regimen and management plan discussed with the attending provider on the case. Medical decision making is of moderate complexity. 40 minutes spent as patient with more than 50% of time spent direct patient care. Will follow.
[2019-09-03] MEDS: HEPARIN SOD (PORCINE) 5,000 UNIT/ML 1 ML VIAL SUBCUT SCH ×3 (05:26→21:36)
[2019-09-03] MEDS: HYDRALAZINE HCL 50 MG TABLET PO SCH ×3 (05:27→21:39)
[2019-09-03 05:41] LABS: ANION GAP 8 (5-19); BLOOD UREA NITROGEN 92 mg/dL (7-20); CALCIUM 9.5 mg/dL (8.4-10.2); CARBON DIOXIDE 25 mmol/L (22-30); CHLORIDE 112 mmol/L (98-107); GLUCOSE 108 mg/dL (75-110); POTASSIUM 4.7 mmol/L (3.6-5.0)
[2019-09-03] MEDS: INSULIN LISPRO 100 UNIT/ML 3 ML VIAL SUBCUT SCH ×4 (08:44→21:36)
--- NOTE | 2019-09-03 10:26 | PDOC PROGRESS REPORT ---
Subjective Progress Note for:: 09/03/19 Reason For Visit: Patient was seen today. She is looking a whole lot better. She is quite cheerful and has polished of her breakfast nicely. She denies history of chest pain or shortness of breath. Labs and medications were reviewed that shows some improvement in her renal numbers unlike earlier days. She is nonoliguric. Physical Exam Vital Signs: Temp Pulse Resp BP Pulse Ox 98.0 F 60 16 150/71 H 94 09/03/19 07:50 09/03/19 07:50 09/03/19 07:50 09/03/19 07:50 09/03/19 07:50 Intake & Output 09/02/19 09/03/19 09/04/19 06:59 06:59 06:59 Intake Total 1242 1863 Output Total 750 925 Balance 492 938 Weight 105.5 kg 106.1 kg General appearance: PRESENT: no acute distress Respiratory exam: PRESENT: clear to auscultation lele, decreased breath sounds. ABSENT: crackles Cardiovascular exam: PRESENT: +S1, +S2 GI/Abdominal exam: PRESENT: normal bowel sounds, soft. ABSENT: organomegaly, tenderness Extremities exam: PRESENT: pedal edema Neurological exam: PRESENT: alert, awake, oriented to person, oriented to place Psychiatric exam: PRESENT: appropriate affect Results Laboratory Results: 09/01/19 11:02 09/03/19 04:43 09/03/19 04:43 Sodium 144.6 Potassium 4.7 Chloride 112 H Carbon Dioxide 25 Anion Gap 8 BUN 92 H Creatinine 3.18 H Est GFR ( Amer) 18 L Glucose 108 Calcium 9.5 08/19/19 08/19/19 03:49 03:49 Creatine Kinase < 20 L Troponin I < 0.012 NT-Pro-B Natriuret Pep 9540 H Impressions: Chest X-Ray 08/19/19 10:03 IMPRESSION: Cardiomegaly and vascular congestion. Similar findings were noted on prior study. Abdomen Ultrasound 08/23/19 00:00 IMPRESSION: Borderline hepatomegaly. Normal hepatic and portal veins. Cholelithiasis with slight thickening of the gallbladder wall but a negative sonographic Viera sign. Assessment & Plan - Diagnosis (1) [id number] renal failure Qualifiers: Acute renal failure type: unspecified Chronic kidney disease stage: stage 4 (severe) Qualified Code(s): N17.9 - Acute kidney failure, unspecified; N18.4 - Chronic kidney disease, stage 4 (severe) Is this a current diagnosis for this admission?: Yes Plan: Nonoliguric. Today she is showing improving renal numbers. Continue on current guidelines. I believe she would benefit from being on BiPAP at night. So far she has gained approximately 10 kg since admission. Finally she is showing some improving renal numbers which is a good sign. Therefore I am going to defer initiation of renal replacements currently. Monitor. (2) Acute hyperkalemia Is this a current diagnosis for this admission?: Yes Plan: Resolved. (3) Obstructive jaundice Is this a current diagnosis for this admission?: Yes Plan: Follow-up on labs.I am going to leave further management of this to Dr. Bess. (4) Cholelithiasis Is this a current diagnosis for this admission?: Yes Plan: Status quo. Abdominal ultrasound showed features suggestive of choledocholithiasis with thickened gallbladder. Currently she is not complaining of any abdominal pains. (5) UTI (urinary tract infection) Qualifiers: Urinary tract infection type: site unspecified Hematuria presence: with hematuria Qualified Code(s): N39.0 - Urinary tract infection, site not specified; R31.9 - Hematuria, unspecified Plan: Likely [place] cystitis. (6) Anemia of chronic disease Is this a current diagnosis for this admission?: Yes Plan: Start erythropoietin. Monitor (7) Diabetes mellitus type 2 in obese Is this a current diagnosis for this admission?: Yes Plan: As per PCP. (8) HTN (hypertension) Qualifiers: Hypertension type: essential hypertension Qualified Code(s): I10 - Essential (primary) hypertension Plan: Well controlled. Monitor. (9) Cor pulmonale Is this a current diagnosis for this admission?: Yes Plan: Status quo.Reviewed last echo done late in 2019 which had shown moderate MR and features indicative of moderately severe pulmonary hypertension/cor pulmonale.I was wondering whether she would benefit from being on BiPAP especially at nighttime. 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
[2019-09-03] MEDS: GABAPENTIN 300 MG CAPSULE PO SCH ×2 (11:20→21:38)
[2019-09-03] MEDS: CARVEDILOL 6.25 MG TABLET PO SCH ×2 (11:20→21:38)
[2019-09-03] MEDS: FUROSEMIDE INJ/PF 20 MG/2 ML SDV IV SCH (11:20)
[2019-09-03] MEDS: ASCORBIC ACID 500 MG TABLET PO SCH (11:20)
[2019-09-03] MEDS: FLUCONAZOLE 100 MG TABLET PO SCH (11:20)
[2019-09-03] MEDS: MECLIZINE HCL 12.5 MG TABLET PO SCH ×3 (11:21→17:04)
[2019-09-03] MEDS: OLOPATADINE HCL 0.1% OPH SOLN 5 ML OU SCH (11:21)
[2019-09-03] MEDS ORDERED: EPOETIN ALFA-EPBX 10,000 UNIT/ML VIAL (RENAL) SUBCUT ONE (12:00)
[2019-09-03] MEDS ORDERED: ACETAMINOPHEN 325 MG TABLET PO PRN (13:54)
--- NOTE | 2019-09-03 18:03 | PDOC PROGRESS REPORT ---
Subjective Progress Note for:: 09/03/19 Subjective:: Patient denied any chest pain or difficulty with breathing. No abdominal pain, nausea or vomiting. No fever or chills. Reason For Visit: ACUTE ON CHRONIC KIDNYE FAILURE WITH HYPERKALEMIA, Physical Exam Vital Signs: Temp Pulse Resp BP Pulse Ox 97.7 F 64 16 150/74 H 94 09/03/19 16:11 09/03/19 16:11 09/03/19 16:11 09/03/19 16:11 09/03/19 16:11 Intake & Output 09/02/19 09/03/19 09/04/19 06:59 06:59 06:59 Intake Total 1242 1863 462 Output Total 750 925 400 Balance 492 938 62 Weight 105.5 kg 106.1 kg Physical Exam: General appearance: PRESENT: no acute distress, obese Head exam: PRESENT: atraumatic, normocephalic Eye exam: PRESENT: conjunctiva pink. ABSENT: pallor, scleral icterus Breast: Left breast edema, probably positional. Respiratory exam: PRESENT: clear to auscultation lele, decreased breath sounds - at lung bases Cardiovascular exam: PRESENT: RRR, +S1, +S2. ABSENT: diastolic murmur, systolic murmur GI/Abdominal exam: PRESENT: normal bowel sounds, soft but left sided abdominal wall edema persist. ABSENT: distended, guarding, mass, organomegaly, rebound, tenderness Extremities exam: PRESENT: pedal edema - chronic bilateral to legs, left >> right leg, improved left breast and abdominal wall edema Neurological exam: PRESENT: alert, awake, oriented to person, oriented to place, oriented to time, oriented to situation Psychiatric exam: PRESENT: appropriate affect, normal mood. ABSENT: homicidal ideation, suicidal ideation Skin exam: PRESENT: dry, warm, other - chronic left foot non healing diabetic foot ulcer. Results Laboratory Results: 09/01/19 11:02 09/03/19 04:43 09/03/19 04:43 Sodium 144.6 Potassium 4.7 Chloride 112 H Carbon Dioxide 25 Anion Gap 8 BUN 92 H Creatinine 3.18 H Est GFR ( Amer) 18 L Glucose 108 Calcium 9.5 08/19/19 08/19/19 03:49 03:49 Creatine Kinase < 20 L Troponin I < 0.012 NT-Pro-B Natriuret Pep 9540 H Impressions: Chest X-Ray 08/19/19 10:03 IMPRESSION: Cardiomegaly and vascular congestion. Similar findings were noted on prior study. Abdomen Ultrasound 08/23/19 00:00 IMPRESSION: Borderline hepatomegaly. Normal hepatic and portal veins. Cholelithiasis with slight thickening of the gallbladder wall but a negative sonographic Viera sign. Assessment & Plan - Diagnosis (1) Acute hyperkalemia Is this a current diagnosis for this admission?: Yes (2) [id number] renal failure Qualifiers: Acute renal failure type: unspecified Chronic kidney disease stage: stage 4 (severe) Qualified Code(s): N17.9 - Acute kidney failure, unspecified; N18.4 - Chronic kidney disease, stage 4 (severe) Is this a current diagnosis for this admission?: Yes (3) Chronic combined systolic and diastolic CHF (congestive heart failure) Is this a current diagnosis for this admission?: Yes (4) Diabetes mellitus type 2 in obese Is this a current diagnosis for this admission?: Yes (5) Anemia of chronic disease Is this a current diagnosis for this admission?: Yes (6) Abdominal pain, chronic, bilateral lower quadrant Is this a current diagnosis for this admission?: Yes (7) Diabetic ulcer of left foot associated with type 2 diabetes mellitus Qualifiers: Diabetic foot ulcer location: heel Non-pressure ulcer stage: unspecified non-pressure ulcer stage Qualified Code(s): E11.621 - Type 2 diabetes mellitus with foot ulcer; L97.429 - Non-pressure chronic ulcer of left heel and midfoot with unspecified severity Is this a current diagnosis for this admission?: Yes (8) Chronic use of opiate for therapeutic purpose Is this a current diagnosis for this admission?: Yes (9) Obesity (BMI 30-39.9) Is this a current diagnosis for this admission?: Yes (10) [place] cystitis Is this a current diagnosis for this admission?: Yes (11) Asymptomatic cholelithiasis Is this a current diagnosis for this admission?: Yes - Time Time Spent with patient: 25-34 minutes Level of Care: IMCU Medications reviewed and adjusted accordingly: Yes Anticipated discharge: SNF Within: Other - Inpatient Certification Based on my medical assessment, after consideration of the patient's comorbidities, presenting symptoms, or acuity I expect that the services needed warrant INPATIENT care.: Yes I certify that my determination is in accordance with my understanding of Medicare's requirements for reasonable and necessary INPATIENT services [42 CFR 412.3e].: Yes Medical Necessity: Significant Comorbidiites Make Outpatient Treatment Too Risky, Need Close Monitoring Due to Risk of Patient Decompensation, Need For Continuous Telemetry Monitoring, Risk of Complication if Not Cared For in [facility], Risk of Diagnosis Which Will Require Inpatient Eval/Care/Monitoring Post Hospital Care: D/C or Transfer Summary - Plan Summary Plan Summary: Continue current medication management. Continue to monitor renal function if she contiune to demonstrate improvement consider transfer to SNF for rehabilitation.
--- NOTE | 2019-09-03 21:18 | Progress Note ---
Provider Note Provider Note: Cardiology PROGRESS NOTE by Dr. Gema Garcia has been on 09/03/2019. SUBJECTIVE: Patient denies any chest pain or discomfort. There is no shortness of breath. She is complaining of headache. Appetite is improved. There is no arrhythmias seen on the monitor. There is no recurrence of atrial fibrillation. There is no new or recurrent TIA or CVA symptoms. PHYSICAL EXAMINATION: The patient is morbidly obese. In no acute distress. Selected Entries 09/03/19 16:11 Temperature 97.7 F Temperature Oral Source Pulse Rate 64 Respiratory 16 Rate Blood Pressure 150/74 H Blood Pressure 99 Mean BP Location Left Arm BP Position Sitting O2 Sat by Pulse 94 Oximetry Oxygen Delivery Room Air Method HEENT: Head is atraumatic/normocephalic. EYES: Pupils are equal round regular reactive to light accommodation external ocular movements are normal. There is no conjunctival pallor there is no scleral icterus. ENT is negative. Neck is supple there is no JVD carotids are equal there is no bruit there is no lymphadenopathy there is no goiter trachea is central.Lungs: There is diminished air entry and prolonged expiration without any rhonchi rales or wheezing. On percussion there is hyperresonance throughout. There are no rales of CHF. HEART: S1-S2 is heard there is no S3 gallop there is no S4 gallop there is a systolic murmur in the left sternal border and apex there is no rub. ABDOMEN: Abdomen is soft nontender there is no hepatosplenomegaly. Bowel sounds well heard there are no tender areas of masses. EXTREMITIES femorals are diminished. Leg pulses are difficult to palpate. There are no femoral bruits. There is dressing on the ulcers of both nonhealing ulcers of the feet which are. There is no pedal edema. There is no DVT or cellulitis there is no calf tenderness. 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 PSYCHIATRIC: The patient's judgment and insight are intact her affect is normal. Chest X-Ray 08/19/19 10:03 IMPRESSION: Cardiomegaly and vascular congestion. Similar findings were noted on prior study. Abdomen Ultrasound 08/23/19 00:00 IMPRESSION: Borderline hepatomegaly. Normal hepatic and portal veins. Cholelithiasis with slight thickening of the gallbladder wall but a negative sonographic Viera sign. Labs- All tests 24 hr 09/03/19 09/03/19 09/03/19 04:43 07:50 11:31 Sodium 144.6 Potassium 4.7 Chloride 112 H Carbon Dioxide 25 Anion Gap 8 BUN 92 H Creatinine 3.18 H Est GFR ( Amer) 18 L Est GFR (MDRD) Non-Af 15 L Glucose 108 POC Glucose 107 145 H Calcium 9.5 09/03/19 09/03/19 16:12 21:33 Sodium Potassium Chloride Carbon Dioxide Anion Gap BUN Creatinine Est GFR ( Amer) Est GFR (MDRD) Non-Af Glucose POC Glucose 137 H 146 H Calcium IMPRESSION/RECOMMENDATION: 1. Episodes of bradycardia. This is improved with the dosage of Coreg being decreased. 2. Acute on chronic kidney disease/failure with hyper kalemia on admission. At present potassium is normal. Nephrology on the case. Patient is on IV Lasix. 3. Acute on chronic CHRONIC DIASTOLIC HEART FAILURE: Her last echo was done in August 2018. showed a normal left retrograde systolic function. Nevertheless with the patient's renal failure due to volume overload there could be systolic heart failure associated with acute on chronic diastolic heart failure. We will repeat echocardiographic to assess LV ejection fraction. 4. 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 5. Paroxysmal atrial fibrillation: At present the patient is in sinus rhythm. 6. HYPERTENSION: Well controlled. Continue her current medications. 7. CORONARY ARTERY DISEASE: Prior history of myocardial infarction and history of coronary artery bypass graft surgery. No anginal symptoms. Her last stress test was in 2018 which showed small areas of myocardial infarction with no reversible ischemia. 8.. CHRONIC OBSTRUCTIVE PULMONARY DISEASE: Continue current inhalers. 9. PERIPHERAL ARTERIAL DISEASE.: Patient with nonhealing ulcers of her left heel. 10. Elevated bilirubin with normal liver enzymes and abnormal alk phos: Doubt that this is obstructive jaundice. Will check a nonfasting liver function test to see if the patient does have Gilbert's syndrome with the alk phos being secondary to the patient's left heel ulcer and hence would recommend getting an x-ray to make sure the patient does not have osteomyelitis. 11. Gallstones by abdominal ultrasound with no evidence of CBD obstruction. Seems to be asymptomatic. 12. OBSTRUCTIVE SLEEP APNEA: Would recommend place the patient the patient on CPAP at night. 13.. DIABETES MELLITUS with peripheral arterial disease, and chronic kidney disease. Stable. . 14. Obesity. Medications reviewed. Medical regimen and management plan discussed with the attending provider on the case. Medical decision making is of moderate complexity. 40 minutes spent as patient with more than 50% of time spent direct patient care. Will follow.
[2019-09-03] MEDS: FAMOTIDINE 20 MG TABLET PO SCH (21:39)
[2019-09-04] MEDS: HEPARIN SOD (PORCINE) 5,000 UNIT/ML 1 ML VIAL SUBCUT SCH ×3 (05:28→21:37)
[2019-09-04] MEDS: HYDRALAZINE HCL 50 MG TABLET PO SCH ×3 (05:29→21:41)
[2019-09-04] MEDS: INSULIN LISPRO 100 UNIT/ML 3 ML VIAL SUBCUT SCH ×4 (08:30→21:41)
[2019-09-04] MEDS: ASCORBIC ACID 500 MG TABLET PO SCH (09:27)
[2019-09-04] MEDS: FLUCONAZOLE 100 MG TABLET PO SCH (09:27)
[2019-09-04] MEDS: MECLIZINE HCL 12.5 MG TABLET PO SCH ×3 (09:28→17:21)
[2019-09-04] MEDS: CARVEDILOL 6.25 MG TABLET PO SCH ×2 (09:28→21:41)
[2019-09-04] MEDS: OLOPATADINE HCL 0.1% OPH SOLN 5 ML OU SCH (09:28)
[2019-09-04] MEDS: FUROSEMIDE INJ/PF 20 MG/2 ML SDV IV SCH (09:28)
[2019-09-04] MEDS: GABAPENTIN 300 MG CAPSULE PO SCH ×2 (09:28→21:41)
[2019-09-04 11:05] LABS: ANION GAP 7 (5-19); BLOOD UREA NITROGEN 84 mg/dL (7-20); CALCIUM 9.7 mg/dL (8.4-10.2); CARBON DIOXIDE 26 mmol/L (22-30); CHLORIDE 112 mmol/L (98-107); GLUCOSE 130 mg/dL (75-110); POTASSIUM 4.7 mmol/L (3.6-5.0)
--- NOTE | 2019-09-04 11:16 | Progress Note ---
Provider Note Provider Note: CARDIOLOGY PROGRESS NOTE by Dr. Gema Garcia on 09/04/2019. OBJECTIVE: The patient denies any chest pain discomfort. There is no nausea vomiting or abdominal pain. There is no complaints of shortness of breath. She has no PND orthopnea. There is no leg edema. There is no arrhythmias seen on the monitor in particular no recurrence of atrial fibrillation. PHYSICAL EXAMINATION: The patient is morbidly obese. In no acute distress Selected Entries 09/04/19 08:22 Temperature 97.7 F Temperature Oral Source Pulse Rate 62 Respiratory 20 Rate Blood Pressure 149/67 H Blood Pressure 94 Mean BP Location Right Arm BP Position Supine O2 Sat by Pulse 99 Oximetry Oxygen Flow 1.50 Rate Oxygen Delivery Nasal Cannula Method HEENT: Head is atraumatic/normocephalic. EYES: Pupils are equal round regular reactive to light accommodation external ocular movements are normal. There is no conjunctival pallor there is no scleral icterus. ENT is negative. Neck is supple there is no JVD carotids are equal there is no bruit there is no lymphadenopathy there is no goiter trachea is central.Lungs: There is diminished air entry and prolonged expiration without any rhonchi rales or wheezing. On percussion there is hyperresonance throughout. There are no rales of CHF. HEART: S1-S2 is heard there is no S3 gallop there is no S4 gallop there is a systolic murmur in the left sternal border and apex there is no rub. ABDOMEN: Abdomen is soft nontender there is no hepatosplenomegaly. Bowel sounds well heard there are no tender areas of masses. EXTREMITIES femorals are diminished. Leg pulses are difficult to palpate. There are no femoral bruits. There is d ressing on the ulcers of both nonhealing ulcers of the feet which are. There is no pedal edema. There is no DVT or cellulitis there is no calf tenderness. 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 PSYCHIATRIC: The patient's judgment and insight are intact her affect is normal. Note the echo shows severe TR. SMC under sampling of the TR jet and hence under estimation) systolic pressure. Will do a limited TR jet interrogation. Labs- All tests 24 hr 09/03/19 09/03/19 09/03/19 11:31 16:12 21:33 Sodium Potassium Chloride Carbon Dioxide Anion Gap BUN Creatinine Est GFR ( Amer) Est GFR (MDRD) Non-Af Glucose POC Glucose 145 H 137 H 146 H Calcium 09/04/19 09/04/19 08:21 10:31 Sodium 145.2 H Potassium 4.7 Chloride 112 H Carbon Dioxide 26 Anion Gap 7 BUN 84 H Creatinine 3.15 H Est GFR ( Amer) 18 L Est GFR (MDRD) Non-Af 15 L Glucose 130 H POC Glucose 119 H Calcium 9.7 Chest X-Ray 08/19/19 10:03 IMPRESSION: Cardiomegaly and vascular congestion. Similar findings were noted on prior study. Abdomen Ultrasound 08/23/19 00:00 IMPRESSION: Borderline hepatomegaly. Normal hepatic and portal veins. Cholelithiasis with slight thickening of the gallbladder wall but a negative sonographic Viera sign. IMPRESSION/RECOMMENDATION: 1. Episodes of bradycardia. This is improved with the dosage of Coreg being decreased. 2. Acute on chronic kidney disease/failure with hyper kalemia on admission. At present potassium is normal. Nephrology on the case. Patient is on IV Lasix. 3. Acute on chronic CHRONIC DIASTOLIC HEART FAILURE: Her last echo was done in August 2018. showed a normal left retrograde systolic function. Nevertheless with the patient's renal failure due to volume overload there could be systolic heart failure associated with acute on chronic diastolic heart failure. We will repeat echocardiographic to assess LV ejection fraction. 4. 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 5. Paroxysmal atrial fibrillation: At present the patient is in sinus rhythm. 6. HYPERTENSION: Well controlled. Continue her current medications. 7. CORONARY ARTERY DISEASE: Prior history of myocardial infarction and history of coronary artery bypass graft surgery. No anginal symptoms. Her last stress test was in 2018 which showed small areas of myocardial infarction with no reversible ischemia. 8.. CHRONIC OBSTRUCTIVE PULMONARY DISEASE: Continue current inhalers. 9. PERIPHERAL ARTERIAL DISEASE.: Patient with nonhealing ulcers of her left heel. 10. Elevated bilirubin with normal liver enzymes and abnormal alk phos: Doubt that this is obstructive jaundice. Will check a nonfasting liver function test to see if the patient does have Gilbert's syndrome with the alk phos being secondary to the patient's left heel ulcer and hence would recommend getting an x-ray to make sure the patient does not have osteomyelitis. 11. Gallstones by abdominal ultrasound with no evidence of CBD obstruction. Seems to be asymptomatic. 12. OBSTRUCTIVE SLEEP APNEA: Would recommend place the patient the patient on CPAP at night. 13.. DIABETES MELLITUS with peripheral arterial disease, and chronic kidney disease. Stable. . 14. Obesity. Medications reviewed. Medical regimen and management plan discussed with the attending provider on the case. Medical decision making is of moderate complexity. 40 minutes spent as patient with more than 50% of time spent direct patient care. Will follow.
--- NOTE | 2019-09-04 11:49 | PDOC PROGRESS REPORT ---
Subjective Progress Note for:: 09/04/19 Reason For Visit: Patient seen today. She continues to feel better. Appetite is not as good as it was yesterday. However no complaints of nausea vomiting. Denies any history of chest pain or shortness of breath. Labs and medications were reviewed. Current creatinine still not improving as much as I thought it might be when I saw her labs yesterday. She is still making decent amounts of urine output. Physical Exam Vital Signs: Temp Pulse Resp BP Pulse Ox 97.7 F 62 20 149/67 H 99 09/04/19 08:22 09/04/19 08:22 09/04/19 08:22 09/04/19 08:22 09/04/19 10:03 Intake & Output 09/03/19 09/04/19 09/05/19 06:59 06:59 06:59 Intake Total 1863 820 Output Total 925 1275 Balance 938 -455 Weight 106.1 kg 104.2 kg General appearance: PRESENT: no acute distress Respiratory exam: PRESENT: clear to auscultation lele, decreased breath sounds. ABSENT: crackles Cardiovascular exam: PRESENT: +S1, +S2 GI/Abdominal exam: PRESENT: normal bowel sounds, soft. ABSENT: organomegaly, tenderness Neurological exam: PRESENT: alert, awake, oriented to person, oriented to place Psychiatric exam: PRESENT: appropriate affect Results Laboratory Results: 09/01/19 11:02 09/04/19 10:31 09/04/19 10:31 Sodium 145.2 H Potassium 4.7 Chloride 112 H Carbon Dioxide 26 Anion Gap 7 BUN 84 H Creatinine 3.15 H Est GFR ( Amer) 18 L Glucose 130 H Calcium 9.7 08/19/19 08/19/19 03:49 03:49 Creatine Kinase < 20 L Troponin I < 0.012 NT-Pro-B Natriuret Pep 9540 H Impressions: Chest X-Ray 08/19/19 10:03 IMPRESSION: Cardiomegaly and vascular congestion. Similar findings were noted on prior study. Abdomen Ultrasound 08/23/19 00:00 IMPRESSION: Borderline hepatomegaly. Normal hepatic and portal veins. Cholelithiasis with slight thickening of the gallbladder wall but a negative sonographic Viera sign. Assessment & Plan - Diagnosis (1) Mmtdx-[id number]-bmbkzoi renal failure Qualifiers: Acute renal failure type: unspecified Chronic kidney disease stage: stage 4 (severe) Qualified Code(s): N17.9 - Acute kidney failure, unspecified; N18.4 - Chronic kidney disease, stage 4 (severe) Is this a current diagnosis for this admission?: Yes Plan: Nonoliguric. Renal numbers are the same as what it was yesterday. I wonder if she has got chronic osteomyelitis in her foot which is causing certain amount of ATN response and not improving her renal numbers. Besides that she is got an elevated alk phosphatase and at this moment I am unsure whether it is coming fro m the liver or from the bones. We will add a gamma GT to a.m. labs. Continue on current guidelines. I believe she would benefit from being on BiPAP at night. So far she has gained approximately 10 kg since admission. Ddefer initiation of renal replacements currently. Monitor. (2) Cholelithiasis Is this a current diagnosis for this admission?: Yes Plan: Status quo. Abdominal ultrasound showed features suggestive of choledochol ithiasis with thickened gallbladder. Currently she is not complaining of any abdominal pains. (3) UTI (urinary tract infection) Qualifiers: Urinary tract infection type: site unspecified Hematuria presence: with hematuria Qualified Code(s): N39.0 - Urinary tract infection, site not specified; R31.9 - Hematuria, unspecified Plan: Likely [place] cystitis. (4) Anemia of chronic disease Is this a current diagnosis for this admission?: Yes Plan: Start erythropoietin. Monitor (5) Diabetes mellitus type 2 in obese Is this a current diagnosis for this admission?: Yes Plan: As per PCP. (6) HTN (hypertension) Qualifiers: Hypertension type: essential hypertension Qualified Code(s): I10 - Essential (primary) hypertension Plan: Well controlled. Monitor. (7) Cor pulmonale Is this a current diagnosis for this admission?: Yes Plan: Status quo.Reviewed last echo done late in 2019 which had shown moderate MR and features indicative of moderately severe pulmonary hypertension/cor pulmonale.I was wondering whether she would benefit from being on BiPAP especially at [facility]. 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 One might have to consider doing noncontrasted MRI or bone nuclear scan. (9) Elevated alkaline phosphatase level Plan: Need further delineation of the above to see whether is coming from the liver or from the bones. Add a gamma GT to a.m. labs.
--- NOTE | 2019-09-04 17:43 | PDOC PROGRESS REPORT ---
Subjective Progress Note for:: 09/04/19 Subjective:: Patient denied any chest pain or difficulty with breathing. Patient was unable to use BiPAP last night on the pretest that it hurts her face. No abdominal pain, nausea or vomiting. No fever or chills. Reason For Visit: ACUTE ON CHRONIC KIDNYE FAILURE WITH HYPERKALEMIA, Physical Exam Vital Signs: Temp Pulse Resp BP Pulse Ox 97.5 F 59 L 18 153/66 H 100 09/04/19 15:27 09/04/19 15:27 09/04/19 15:27 09/04/19 15:27 09/04/19 16:49 Intake & Output 09/03/19 09/04/19 09/05/19 06:59 06:59 06:59 Intake Total 1863 820 240 Output Total 925 1275 Balance 938 -455 240 Weight 106.1 kg 104.2 kg Physical Exam: General appearance: PRESENT: no acute distress, obese Head exam: PRESENT: atraumatic, normocephalic Eye exam: PRESENT: conjunctiva pink. ABSENT: pallor, scleral icterus Breast: Left breast edema improving, probably positional. Respiratory exam: PRESENT: clear to auscultation lele, decreased breath sounds - at lung bases Cardiovascular exam: PRESENT: RRR, +S1, +S2. ABSENT: diastolic murmur, systolic murmur GI/Abdominal exam: PRESENT: normal bowel sounds, soft, left sided abdominal wall edema persist. ABSENT: distended, guarding, mass, organomegaly, rebound, tenderness Extremities exam: PRESENT: pedal edema - chronic bilateral to legs, left >> right leg, improved left breast and abdominal wall edema Neurological exam: PRESENT: alert, awake, oriented to person, oriented to place, oriented to time, oriented to situation Psychiatric exam: PRESENT: appropriate affect, normal mood. ABSENT: homicidal ideation, suicidal ideation Skin exam: PRESENT: dry, warm, other - chronic left foot non healing diabetic foot ulcer. Results Laboratory Results: 09/01/19 11:02 09/04/19 10:31 09/04/19 10:31 Sodium 145.2 H Potassium 4.7 Chloride 112 H Carbon Dioxide 26 Anion Gap 7 BUN 84 H Creatinine 3.15 H Est GFR ( Amer) 18 L Glucose 130 H Calcium 9.7 08/19/19 08/19/19 03:49 03:49 Creatine Kinase < 20 L Troponin I < 0.012 NT-Pro-B Natriuret Pep 9540 H Impressions: Chest X-Ray 08/19/19 10:03 IMPRESSION: Cardiomegaly and vascular congestion. Similar findings were noted on prior study. Abdomen Ultrasound 08/23/19 00:00 IMPRESSION: Borderline hepatomegaly. Normal hepatic and portal veins. Cholelithiasis with slight thickening of the gallbladder wall but a negative sonographic Viera sign. Assessment & Plan - Diagnosis (1) Acute hyperkalemia Is this a current diagnosis for this admission?: Yes (2) Fbtju-ob-orupmoc renal failure Qualifiers: Acute renal failure type: unspecified Chronic kidney disease stage: stage 4 (severe) Qualified Code(s): N17.9 - Acute kidney failure, unspecified; N18.4 - Chronic kidney disease, stage 4 (severe) Is this a current diagnosis for this admission?: Yes (3) Chronic combined systolic and diastolic CHF (congestive heart failure) Is this a current diagnosis for this admission?: Yes (4) Diabetes mellitus type 2 in obese Is this a current diagnosis for this admission?: Yes (5) Anemia of chronic disease Is this a current diagnosis for this admission?: Yes (6) Abdominal pain, chronic, bilateral lower quadrant Is this a current diagnosis for this admission?: Yes (7) Diabetic ulcer of left foot associated with type 2 diabetes mellitus Qualifiers: Diabetic foot ulcer location: heel Non-pressure ulcer stage: unspecified non-pressure ulcer stage Qualified Code(s): E11.621 - Type 2 diabetes mellitus with foot ulcer; L97.429 - Non-pressure chronic ulcer of left heel and midfoot with unspecified severity Is this a current diagnosis for this admission?: Yes (8) Chronic use of opiate for therapeutic purpose Is this a current diagnosis for this admission?: Yes (9) Obesity (BMI 30-39.9) Is this a current diagnosis for this admission?: Yes (10) [place] cystitis Is this a current diagnosis for this admission?: Yes (11) Asymptomatic cholelithiasis Is this a current diagnosis for this admission?: Yes - Time Time Spent with patient: 25-34 minutes Level of Care: IMCU Medications reviewed and adjusted accordingly: Yes Anticipated discharge: SNF Within: Other - Inpatient Certification Based on my medical assessment, after consideration of the patient's comorbidities, presenting symptoms, or acuity I expect that the services needed warrant INPATIENT care.: Yes I certify that my determination is in accordance with my understanding of Medicare's requirements for reasonable and necessary INPATIENT services [42 CFR 412.3e].: Yes Medical Necessity: Significant Comorbidiites Make Outpatient Treatment Too Risky, Need Close Monitoring Due to Risk of Patient Decompensation, Need For Continuous Telemetry Monitoring, Risk of Complication if Not Cared For in Hospital, Risk of Diagnosis Which Will Require Inpatient Eval/Care/Monitoring Post Hospital Care: D/C Lead Technician Documentation, D/C or Transfer Summary - Plan Summary Plan Summary: Continue current medication management. If she continue to improve probably transfer back to SNF in next 48 hours. Cardiology and nephrology team input appreciated.
[2019-09-04] MEDS: FAMOTIDINE 20 MG TABLET PO SCH (21:41)
--- NOTE | 2019-09-05 02:11 | XCELERA REPORT ---
[address] [address] Transthoracic Echocardiogram Report Name: LEEANN FUNEZ Age: 64 yrs Gender: Female : 1955 Patient Status: Inpatient Patient Location: [facility]^A Study Date: 09/03/2019 10:29 AM Height: 64 in Weight: 232 lb BSA: 2.1 m2 Procedure: A two-dimensional transthoracic echocardiogram with color flow and Doppler was performed. The study was technically difficult with many images being suboptimal in quality. Reason For Study: CHF History: CHF. Ordering Physician: GEMA SPEARS Performed By: Narda Mckee Interpretation Summary The left ventricle is normal in size. There is normal left ventricular wall thickness. LV EF is 55% to 60% Left ventricular systolic function is normal. Doppler measurements suggest pseudonormalized left ventricular relaxation, which is associated with grade II/IV or mild to moderate diastolic dysfunction : By tissue dopplers. The left ventricular wall motion is normal. Flattened septum is consistent with RV pressure/volume overload There is no thrombus. Cannot assess ASD,VSD , or PFO seen. The right ventricle is mild to moderately dilated. The right atrium is mild to moderately dilated. The left atrium is moderately dilated. There is no evidence of mitral valve prolapse. There is no vegetation seen on the mitral valve. There is no mitral valve stenosis. There is a moderate amount of mitral regurgitation There is no aortic valvular vegetation. There is no aortic valve stenosis There is aortic sclerosis without aortic stenosis. There is no LVOT obstruction. No aortic regurgitation is present. There is no tricuspid stenosis. There is a severe amount of tricuspid regurgitation There is moderate pulmonary hypertension by echo RVSP is at least 51 mm of Hg , with RA mean of at least 20. There is no pulmonic valvular stenosis. There is a mild amount of pulmonic regurgitation The inferior vena cava appeared dilated and did not change with respiration (RAP > 20 mmHg) There is no pericardial effusion. Moderate size left pleural effusion. MMode/2D Measurements & Calculations RVDd: 4.1 cm LVIDd: 4.8 cm FS: 23.8 % Ao root diam: 2.7 cm IVSd: 1.1 cm LVIDs: 3.6 cm EDV(Teich): Ao root area: LVPWd: 1.1 cm 105.9 ml 5.5 cm2 ESV(Teich): 55.7 mlLA dimension: 4.8 cm EF(Teich): 47.4 % LVLd ap4: 8.9 cm SV(MOD-sp4): EDV(MOD-sp4): 52.0 ml 93.0 ml LVLs ap4: 7.2 cm ESV(MOD-sp4): 41.0 ml EF(MOD-sp4): 55.9 % Doppler Measurements & Calculations MV E max lina: MV P1/2t max lina: Ao V2 max: LV V1 max P.0 cm/sec 147.5 cm/sec 207.5 cm/sec 4.1 mmHg MV A max lina: MV P1/2t: 73.0 msec Ao max PG: LV V1 max: 121.7 cm/sec MVA(P1/2t): 3.0 cm2 17.2 mmHg 100.9 cm/sec MV E/A: 1.2 MV dec slope: 591.8 cm/sec2 MV dec time: 0.25 sec PA V2 max: PI end-d lina: TR max lina: MV P1/2t-pr_phl: 65.6 cm/sec 126.2 cm/sec 276.9 cm/sec 73.0 msec PA max P.7 mmHg TR max P.7 mmHg Left Ventricle The left ventricle is normal in size. There is normal left ventricular wall thickness. LV EF is 55% to 60%. Left ventricular systolic function is normal. Doppler measurements suggest pseudonormalized left ventricular relaxation, which is associated with grade II/IV or mild to moderate diastolic dysfunction. : By tissue dopplers. The left ventricular wall motion is normal. Flattened septum is consistent with RV pressure/volume overload. There is no thrombus. Cannot assess ASD,VSD , or PFO seen. Right Ventricle The right ventricle is mild to moderately dilated. Atria The right atrium is mild to moderately dilated. The left atrium is moderately dilated. Mitral Valve There is no evidence of mitral valve prolapse. There is no vegetation seen on the mitral valve. There is no mitral valve stenosis. There is a moderate amount of mitral regurgitation. Aortic Valve There is no aortic valvular vegetation. There is no aortic valve stenosis. There is aortic sclerosis without aortic stenosis. There is no LVOT obstruction. No aortic regurgitation is present. Tricuspid Valve There is no tricuspid stenosis. There is a severe amount of tricuspid regurgitation. There is moderate pulmonary hypertension by echo. RVSP is at least 51 mm of Hg , with RA mean of at least 20. Pulmonic Valve There is no pulmonic valvular stenosis. There is a mild amount of pulmonic regurgitation. Great Vessels The aortic root is normal size. The inferior vena cava appeared dilated and did not change with respiration (RAP > 20 mmHg). Effusions There is no pericardial effusion. Moderate size left pleural effusion. : GEMA SPEARS Lakshmi
[2019-09-05] MEDS: HEPARIN SOD (PORCINE) 5,000 UNIT/ML 1 ML VIAL SUBCUT SCH ×3 (05:34→21:28)
[2019-09-05] MEDS: HYDRALAZINE HCL 50 MG TABLET PO SCH ×3 (05:36→22:56)
[2019-09-05 06:37] LABS: ALBUMIN 3.5 g/dL (3.5-5.0); ALKALINE PHOSPHATASE 512 U/L (38-126); ANION GAP 9 (5-19); ASPARTATE AMINO TRANSFERASE 30 U/L (14-36); BILIRUBIN,DIRECT 0.8 mg/dL (0.0-0.4); BILIRUBIN,TOTAL 1.2 mg/dL (0.2-1.3); BLOOD UREA NITROGEN 83 mg/dL (7-20); CALCIUM 9.5 mg/dL (8.4-10.2); CARBON DIOXIDE 22 mmol/L (22-30); CHLORIDE 112 mmol/L (98-107); GLUCOSE 105 mg/dL (75-110); POTASSIUM 4.9 mmol/L (3.6-5.0); TOTAL PROTEIN 7.8 g/dL (6.3-8.2)
[2019-09-05 07:00] LABS: HEMATOCRIT 28.1 % (36.0-47.0); MEAN CORPUSCULAR HEMOGLOBIN 30.5 pg (27.0-33.4); MEAN CORPUSCULAR HGB CONC 32.1 g/dL (32.0-36.0); MEAN CORPUSCULAR VOLUME 95 fl (80-97); RED BLOOD COUNT 2.96 10^6/uL (3.72-5.28); RED CELL DISTRIBUTION WIDTH 17.5 % (11.5-14.0); SEGMENTED NEUTROPHILS % (AUTO) 58.9 % (42-78); WHITE BLOOD COUNT 5.3 10^3/uL (4.0-10.5)
[2019-09-05 07:01] LABS: ABSOLUTE EOSINOPHILS # (AUTO) 0.1 10^3/uL (0.0-0.6); ABSOLUTE LYMPHOCYTES (AUTO) 1.1 10^3/uL (0.5-4.7); ABSOLUTE MONOCYTES (AUTO) 0.9 10^3/uL (0.1-1.4); ABSOLUTE NEUT (AUTO) 3.1 10^3/uL (1.7-8.2); BASOPHILS % (AUTO) 0.5 % (0-2); EOSINOPHILS % (AUTO) 2.6 % (0-6); LYMPHOCYTES % (AUTO) 21.5 % (13-45); MONOCYTES % (AUTO) 16.5 % (3-13); PLATELET COUNT 83 10^3/uL (150-450); TOTAL CELLS COUNTED % (AUTO) 100 %
[2019-09-05] MEDS: INSULIN LISPRO 100 UNIT/ML 3 ML VIAL SUBCUT SCH ×4 (08:16→22:57)
[2019-09-05] MEDS: GABAPENTIN 300 MG CAPSULE PO SCH ×2 (10:50→22:56)
[2019-09-05] MEDS: OLOPATADINE HCL 0.1% OPH SOLN 5 ML OU SCH (10:50)
[2019-09-05] MEDS: MECLIZINE HCL 12.5 MG TABLET PO SCH ×3 (10:50→18:40)
[2019-09-05] MEDS: FUROSEMIDE INJ/PF 20 MG/2 ML SDV IV SCH (10:50)
[2019-09-05] MEDS: CARVEDILOL 6.25 MG TABLET PO SCH ×2 (10:50→22:56)
[2019-09-05] MEDS: ASCORBIC ACID 500 MG TABLET PO SCH (10:50)
--- NOTE | 2019-09-05 12:59 | RADIOLOGY REPORT (SQ) ---
EXAM DESCRIPTION: VENOUS BILATERAL LOWER IMAGES COMPLETED DATE/TIME: 09/05/2019 12:50 pm REASON FOR STUDY: possible DVT COMPARISON: None. TECHNIQUE: Dynamic and static neal scale and color images acquired of both lower extremity venous sy stems. Selected spectral images acquired with additional compression and augmentation maneuvers. Imag es stored on PACS. LIMITATIONS: None. FINDINGS: RIGHT LEG COMMON FEMORAL AND FEMORAL: Normal phasicity, compression and augmentation. No visualized echogenic m aterial on neal scale. No defects on color images. POPLITEAL: Normal compression and augmentation. No visualized echogenic material on neal scale. No de fects on color images. CALF VESSELS: Normal compression and augmentation. No visualized echogenic material on neal scale. No defects on color image. GSV AND SSV: Normal compression. No visualized echogenic material on neal scale. No defects on color images. ANY DEEP VENOUS INSUFFICIENCY: No. ANY EVIDENCE OF POPLITEAL CYST: No. OTHER: No other significant finding. LEFT LEG COMMON FEMORAL AND FEMORAL: Normal phasicity, compression and augmentation. No visualized echogenic m aterial on neal scale. No defects on color images. POPLITEAL: Normal compression and augmentation. No visualized echogenic material on neal scale. No de fects on color images. CALF VESSELS: Normal compression and augmentation. No visualized echogenic material on neal scale. No defects on color images. GSV AND SSV: The distal greater saphenous vein has been removed for bypass grafting. Normal compress ion. No visualized echogenic material on neal scale. No defects on color images. ANY DEEP VENOUS INSUFFICIENCY: No. ANY EVIDENCE POPLITEAL CYST: No. OTHER: No other significant finding. IMPRESSION: NO EVIDENCE DVT OR SVT IN EITHER LEG. TECHNICAL DOCUMENTATION: JOB ID: [id number] [employer]- All Rights Reserved Reading location - IP/workstation name: [email or web address]
--- NOTE | 2019-09-05 19:52 | PDOC PROGRESS REPORT ---
Subjective Progress Note for:: 09/05/19 Subjective:: Patient denied any chest pain or difficulty with breathing. No abdominal pain, nausea or vomiting. No fever or chills. Reason For Visit: ACUTE ON CHRONIC KIDNYE FAILURE WITH HYPERKALEMIA, Physical Exam Vital Signs: Temp Pulse Resp BP Pulse Ox 97.9 F 64 17 160/66 H 93 09/05/19 15:25 09/05/19 15:25 09/05/19 15:25 09/05/19 15:25 09/05/19 15:25 Intake & Output 09/04/19 09/05/19 09/06/19 06:59 06:59 06:59 Intake Total 820 1074 Output Total 1275 1475 Balance -455 -401 Weight 104.2 kg 104.1 kg Physical Exam: General appearance: PRESENT: no acute distress, obese Head exam: PRESENT: atraumatic, normocephalic Eye exam: PRESENT: conjunctiva pink. ABSENT: pallor, scleral icterus Breast: Left breast edema improving, probably positional. Respiratory exam: PRESENT: clear to auscultation lele, decreased breath sounds - at lung bases Cardiovascular exam: PRESENT: RRR, +S1, +S2. ABSENT: diastolic murmur, systolic murmur GI/Abdominal exam: PRESENT: normal bowel sounds, soft, left sided abdominal wall edema persist. ABSENT: distended, guarding, mass, organomegaly, rebound, tenderness Extremities exam: PRESENT: improving pedal edema - chronic bilateral to legs, left >> right leg, improved left breast and abdominal wall edema Neurological exam: PRESENT: alert, awake, oriented to person, oriented to place, oriented to time, oriented to situation Psychiatric exam: PRESENT: appropriate affect, normal mood. ABSENT: homicidal ideation, suicidal ideation Skin exam: PRESENT: dry, warm, other - chronic left foot non healing diabetic foot ulcer. Results Laboratory Results: 09/05/19 05:34 09/05/19 05:34 09/05/19 09/05/19 05:34 05:34 WBC 5.3 RBC 2.96 L Hgb 9.0 L Hct 28.1 L MCV 95 MCH 30.5 MCHC 32.1 RDW 17.5 H Plt Count 83 L Seg Neutrophils % 58.9 Sodium 143.3 Potassium 4.9 Chloride 112 H Carbon Dioxide 22 Anion Gap 9 BUN 83 H Creatinine 3.08 H Est GFR ( Amer) 18 L Glucose 105 Calcium 9.5 Total Bilirubin 1.2 GGT 820 H AST 30 Alkaline Phosphatase 512 H Total Protein 7.8 Albumin 3.5 08/19/19 08/19/19 03:49 03:49 Creatine Kinase < 20 L Troponin I < 0.012 NT-Pro-B Natriuret Pep 9540 H Impressions: Chest X-Ray 08/19/19 10:03 IMPRESSION: Cardiomegaly and vascular congestion. Similar findings were noted on prior study. Abdomen Ultrasound 08/23/19 00:00 IMPRESSION: Borderline hepatomegaly. Normal hepatic and portal veins. Katherin lithiasis with slight thickening of the gallbladder wall but a negative sonographic Viera sign. Venous Doppler Study 09/05/19 00:00 IMPRESSION: NO EVIDENCE DVT OR SVT IN EITHER LEG. Assessment & Plan - Diagnosis (1) Acute hyperkalemia Is this a current diagnosis for this admission?: Yes (2) [id number] renal failure Qualifiers: Acute renal failure type: unspecified Chronic kidney disease stage: stage 4 (severe) Qualified Code(s): N17.9 - Acute kidney failure, unspecified; N18.4 - Chronic kidney disease, stage 4 (severe) Is this a current diagnosis for this admission?: Yes (3) Chronic combined systolic and diastolic CHF (congestive heart failure) Is this a current diagnosis for this admission?: Yes (4) Diabetes mellitus type 2 in obese Is this a current diagnosis for this admission?: Yes (5) Anemia of chronic disease Is this a current diagnosis for this admission?: Yes (6) Abdominal pain, chronic, bilateral lower quadrant Is this a current diagnosis for this admission?: Yes (7) Diabetic ulcer of left foot associated with type 2 diabetes mellitus Qualifiers: Diabetic foot ulcer location: heel Non-pressure ulcer stage: unspecified non-pressure ulcer stage Qualified Code(s): E11.621 - Type 2 diabetes mellitus with foot ulcer; L97.429 - Non-pressure chronic ulcer of left heel and midfoot with unspecified severity Is this a current diagnosis for this admission?: Yes (8) Chronic use of opiate for therapeutic purpose Is this a current diagnosis for this admission?: Yes (9) Obesity (BMI 30-39.9) Is this a current diagnosis for this admission?: Yes (10) [place] cystitis Is this a current diagnosis for this admission?: Yes (11) Asymptomatic cholelithiasis Is this a current diagnosis for this admission?: Yes - Time Time Spent with patient: 25-34 minutes Level of Care: IMCU Medications reviewed and adjusted accordingly: Yes Anticipated discharge: SNF Within: Other - Inpatient Certification Based on my medical assessment, after consideration of the patient's comorbidities, presenting symptoms, or acuity I expect that the services needed warrant INPATIENT care.: Yes I certify that my determination is in accordance with my understanding of Medicare's requirements for reasonable and necessary INPATIENT services [42 CFR 412.3e].: Yes Medical Necessity: Significant Comorbidiites Make Outpatient Treatment Too Risky, Need Close Monitoring Due to Risk of Patient Decompensation, Risk of Complication if Not Cared For in Hospital, Risk of Diagnosis Which Will Require Inpatient Eval/Care/Monitoring Post Hospital Care: D/C or Transfer Summary - Plan Summary Plan Summary: D/C Palacio catheter. D/C IV Furosemide. Start on Lasix 40 mg p.o daily. Continue all other current medication management. Discussed possible transfer to SNF tomorrow. Her Doppler evaluation was negative for DVT evidence.
[2019-09-05] MEDS: FAMOTIDINE 20 MG TABLET PO SCH (22:56)
--- NOTE | 2019-09-05 23:07 | Progress Note ---
Provider Note Provider Note: CARDIOLOGY PROGRESS NOTE by Dr. Gema Garcia on 09/05/2019. OBJECTIVE: The patient denies any chest pain discomfort. There is no nausea vomiting or abdominal pain. There is no complaints of shortness of breath. She has no PND orthopnea. There is no leg edema. There is no arrhythmias seen on t he monitor in particular no recurrence of atrial fibrillation. PHYSICAL EXAMINATION: The patient is morbidly obese. In no acute distress Selected Entries 09/05/19 15:25 Temperature 97.9 F Temperature Oral Source Pulse Rate 64 Respiratory 17 Rate Blood Pressure 160/66 H Blood Pressure 97 Mean BP Location Left Arm BP Position Supine O2 Sat by Pulse 93 Oximetry Oxygen Delivery Room Air Method HEENT: Head is atraumatic/normocephalic. EYES: Pupils are equal round regular reactive to light accommodation external ocular movements are normal. There is no conjunctival pallor there is no scleral icterus. ENT is negative. Neck is supple there is no JVD carotids are equal there is no bruit there is no lymphadenopathy there is no goiter trachea is central.Lungs: There is diminished air entry and prolonged expiration without any rhonchi rales or wheezing. On percussion there is hyperresonance throughout. There are no rales of CHF. HEART: S1-S2 is heard there is no S3 gallop there is no S4 gallop there is a systolic murmur in the left sternal border and apex there is no rub. ABDOMEN: Abdomen is soft nontender there is no hepatosplenomegaly. Bowel sounds well heard there are no tender areas of masses. EXTREMITIES femorals are diminished. Leg pulses are difficult to palpate. There are no femoral bruits. There is dressing on the ulcers of both nonhealing ulcers of the feet which are. There is no pedal edema. There is no DVT or cellulitis there is no calf tenderness. 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 PSYCHIATRIC: The patient's judgment and insight are intact her affect is normal. Labs- All tests 24 hr 09/05/19 09/05/19 09/05/19 05:34 05:34 07:33 WBC 5.3 RBC 2.96 L Hgb 9.0 L Hct 28.1 L MCV 95 MCH 30.5 MCHC 32.1 RDW 17.5 H Plt Count 83 L Lymph % (Auto) 21.5 Robertson % (Auto) 16.5 H Eos % (Auto) 2.6 Baso % (Auto) 0.5 Absolute Neuts (auto) 3.1 Absolute Lymphs (auto) 1.1 Absolute Monos (auto) 0.9 Absolute Eos (auto) 0.1 Absolute Basos (auto) 0.0 Seg Neutrophils % 58.9 Sodium 143.3 Potassium 4.9 Chloride 112 H Carbon Dioxide 22 Anion Gap 9 BUN 83 H Creatinine 3.08 H Est GFR ( Amer) 18 L Est GFR (MDRD) Non-Af 15 L Glucose 105 POC Glucose 99 Calcium 9.5 Total Bilirubin 1.2 Direct Bilirubin 0.8 H Neonat Total Bilirubin Not Reportable Neonat Direct Bilirubin Not Reportable Neonat Indirect Bili Not Reportable GGT 820 H AST 30 ALT 22 Alkaline Phosphatase 512 H Total Protein 7.8 Albumin 3.5 09/05/19 09/05/19 09/05/19 11:06 16:28 21:17 WBC RBC Hgb Hct MCV MCH MCHC RDW Plt Count Lymph % (Auto) Robertson % (Auto) Eos % (Auto) Baso % (Auto) Absolute Neuts (auto) Absolute Lymphs (auto) Absolute Monos (auto) Absolute Eos (auto) Absolute Basos (auto) Seg Neutrophils % Sodium Potassium Chloride Carbon Dioxide Anion Gap BUN Creatinine Est GFR ( Amer) Est GFR (MDRD) Non-Af Glucose POC Glucose 137 H 142 H 132 H Calcium Total Bilirubin Direct Bilirubin Neonat Total Bilirubin Neonat Direct Bilirubin Neonat Indirect Bili GGT AST ALT Alkaline Phosphatase Total Protein Albumin Chest X-Ray 08/19/19 10:03 IMPRESSION: Cardiomegaly and vascular congestion. Similar findings were noted on prior study. Abdomen Ultrasound 08/23/19 00:00 IMPRESSION: Borderline hepatomegaly. Normal hepatic and portal veins. Cholelithiasis with slight thickening of the gallbladder wall but a negative sonographic Viera sign. Venous Doppler Study 09/05/19 00:00 IMPRESSION: NO EVIDENCE DVT OR SVT IN EITHER LEG. IMPRESSION/RECOMMENDATION: 1. Episodes of bradycardia. This is improved with the dosage of Coreg being decreased. 2. Acute on chronic kidney disease/failure with hyper kalemia on admission. At present potassium is normal. Nephrology on the case. Patient is on IV Lasix. 3. Acute on chronic CHRONIC DIASTOLIC HEART FAILURE: Her last echo was done in August 2018. showed a normal left retrograde systolic function. Nevertheless with the patient's renal failure due to volume overload there could be systolic heart failure associated with acute on chronic diastolic heart failure. We will repeat echocardiographic to assess LV ejection fraction. 4. 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 5. Paroxysmal atrial fibrillation: At present the patient is in sinus rhythm. 6. HYPERTENSION: Well controlled. Continue her current medications. 7. CORONARY ARTERY DISEASE: Prior history of myocardial infarction and history of coronary artery bypass graft surgery. No anginal symptoms. Her last stress test was in 2018 which showed small areas of myocardial infarction with no reversible ischemia. 8.. CHRONIC OBSTRUCTIVE PULMONARY DISEASE: Continue current inhalers. 9. PERIPHERAL ARTERIAL DISEASE.: Patient with nonhealing ulcers of her left heel. 10. Elevated bilirubin with normal liver enzymes and abnormal alk phos: Doubt that this is obstructive jaundice. Will check a nonfasting liver function test to see if the patient does have Gilbert's syndrome with the alk phos being secondary to the patient's left heel ulcer and hence would recommend getting an x-ray to make sure the patient does not have osteomyelitis. 11. Gallstones by abdominal ultrasound with no evidence of CBD obstruction. Seems to be asymptomatic. 12. OBSTRUCTIVE SLEEP APNEA: Would recommend place the patient the patient on CPAP at night. 13.. DIABETES MELLITUS with peripheral arterial disease, and chronic kidney disease. Stable. . 14. Obesity. Medications reviewed. Medical regimen and management plan discussed with the attending provider on the case. Medical decision making is of moderate complexity. 40 minutes spent as patient with more than 50% of time spent direct patient care. Will follow.
[2019-09-06] MEDS: HEPARIN SOD (PORCINE) 5,000 UNIT/ML 1 ML VIAL SUBCUT SCH ×3 (05:50→21:29)
[2019-09-06 06:11] LABS: ALBUMIN 3.3 g/dL (3.5-5.0); ALKALINE PHOSPHATASE 504 U/L (38-126); ANION GAP 7 (5-19); ASPARTATE AMINO TRANSFERASE 27 U/L (14-36); BILIRUBIN,DIRECT 0.7 mg/dL (0.0-0.4); BILIRUBIN,TOTAL 1.1 mg/dL (0.2-1.3); BLOOD UREA NITROGEN 73 mg/dL (7-20); CALCIUM 9.4 mg/dL (8.4-10.2); CARBON DIOXIDE 25 mmol/L (22-30); CHLORIDE 111 mmol/L (98-107); GLUCOSE 118 mg/dL (75-110); POTASSIUM 4.7 mmol/L (3.6-5.0); TOTAL PROTEIN 7.2 g/dL (6.3-8.2)
[2019-09-06] MEDS: HYDRALAZINE HCL 50 MG TABLET PO SCH ×3 (06:20→21:29)
[2019-09-06] MEDS: INSULIN LISPRO 100 UNIT/ML 3 ML VIAL SUBCUT SCH ×4 (08:35→21:30)
[2019-09-06] MEDS: OLOPATADINE HCL 0.1% OPH SOLN 5 ML OU SCH (10:07)
[2019-09-06] MEDS: GABAPENTIN 300 MG CAPSULE PO SCH ×2 (10:08→21:29)
[2019-09-06] MEDS: ASCORBIC ACID 500 MG TABLET PO SCH (10:08)
[2019-09-06] MEDS: FUROSEMIDE 40 MG TABLET PO SCH (10:08)
[2019-09-06] MEDS: CARVEDILOL 6.25 MG TABLET PO SCH ×2 (10:08→21:29)
[2019-09-06] MEDS: MECLIZINE HCL 12.5 MG TABLET PO SCH ×3 (10:08→17:32)
[2019-09-06] MEDS: FLUCONAZOLE 100 MG TABLET PO SCH (10:09)
--- NOTE | 2019-09-06 11:45 | Progress Note ---
Provider Note Provider Note: CARDIOLOGY PROGRESS NOTE by Dr. Gema Garcia on 09/06/2019. UBJECTIVE: The patient denies any chest pain discomfort. There is no nausea vomiting or abdominal pain. There is no complaints of shortness of breath. She has no PND orthopnea. There is no leg edema. There is no arrhythmias seen on the monitor in particular no recurrence of atrial fibrillation. PHYSICAL EXAMINATION: The patient is morbidly obese. In no acute distress. Selected Entries 09/06/19 09/06/19 09/06/19 19:24 19:31 23:29 Temperature 98.3 F Temperature Oral Source Pulse Rate 61 Respiratory 16 Rate Blood Pressure 112/54 L Blood Pressure 73 Mean BP Location Left Arm BP Position Supine O2 Sat by Pulse 95 Oximetry Fraction of 24 Inspired Oxygen (FIO2) Oxygen Flow 1.00 Rate Oxygen Delivery Nasal Cannula Method HEENT: Head is atraumatic/normocephalic. EYES: Pupils are equal round regular reactive to light accommodation external ocular movements are normal. There is no conjunctival pallor there is no scleral icterus. ENT is negative. Neck is supple there is no JVD carotids are equal there is no bruit there is no lymphadenopathy there is no goiter trachea is central.Lungs: There is diminished air entry and prolonged expiration without any rhonchi rales or wheezing. On percussion there is hyperresonance throughout. There are no rales of CHF. HEART: S1-S2 is heard there is no S3 gallop there is no S4 gallop there is a systolic murmur in the left sternal border and apex there is no rub. ABDOMEN: Abdomen is soft nontender there is no hepatosplenomegaly. Bowel sounds well heard there are no tender areas of masses. EXTREMITIES femorals are diminished. Leg pulses are difficult to palpate. There are no femoral bruits. There is dressing on the ulcers of both nonhealing ulcers of the feet which are. There is no pedal edema. There is no DVT or cellulitis there is no calf tenderness. 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 PSYCHIATRIC: The patient's judgment and insight are intact her affect is normal. Labs- All tests 24 hr 09/04/19 09/06/19 09/06/19 11:15 05:14 07:30 Sodium 143.4 Potassium 4.7 Chloride 111 H Carbon Dioxide 25 Anion Gap 7 BUN 73 H Creatinine 3.04 H Est GFR ( Amer) 19 L Est GFR (MDRD) Non-Af 15 L Glucose 118 H POC Glucose 109 Calcium 9.4 Total Bilirubin 1.1 Direct Bilirubin 0.7 H Neonat Total Bilirubin Not Reportable Neonat Direct Bilirubin Not Reportable Neonat Indirect Bili Not Reportable AST 27 ALT 21 Alkaline Phosphatase 504 H Total Protein 7.2 Albumin 3.3 L COVID-19 Source NASOPHARYNGEAL COVID-19 ([facility]) NOT DETECTED 09/06/19 09/06/19 09/06/19 11:00 16:39 21:21 Sodium Potassium Chloride Carbon Dioxide Anion Gap BUN Creatinine Est GFR ( Amer) Est GFR (MDRD) Non-Af Glucose POC Glucose 129 H 169 H 146 H Calcium Total Bilirubin Direct Bilirubin Neonat Total Bilirubin Neonat Direct Bilirubin Neonat Indirect Bili AST ALT Alkaline Phosphatase Total Protein Albumin COVID-19 Source COVID-19 ([facility]) Chest X-Ray 08/19/19 10:03 IMPRESSION: Cardiomegaly and vascular congestion. Similar findings were noted on prior study. Abdomen Ultrasound 08/23/19 00:00 IMPRESSION: Borderline hepatomegaly. Normal hepatic and portal veins. Cholelithiasis with slight thickening of the gallbladder wall but a negative sonographic Viera sign. Venous Doppler Study 09/05/19 00:00 IMPRESSION: NO EVIDENCE DVT OR SVT IN EITHER LEG. IMPRESSION/RECOMMENDATION: 1. Episodes of bradycardia. This is improved with the dosage of Coreg being decreased. 2. Acute on chronic kidney disease/failure with hyper kalemia on admission. At present potassium is normal. Nephrology on the case. Patient is on IV Lasix. 3. Acute on chronic CHRONIC DIASTOLIC HEART FAILURE: Her last echo was done in August 2018. showed a normal left retrograde systolic function. Nevertheless with the patient's renal failure due to volume overload there could be systolic heart failure associated with acute on chronic diastolic heart failure. We will repeat echocardiographic to assess LV ejection fraction. 4. 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 5. Paroxysmal atrial fibrillation: At present the patient is in sinus rhythm. 6. HYPERTENSION: Well controlled. Continue her current medications. 7. CORONARY ARTERY DISEASE: Prior history of myocardial infarction and history of coronary artery bypass graft surgery. No anginal symptoms. Her last stress test was in 2019 which showed small areas of myocardial infarction with no reversible ischemia. 8.. CHRONIC OBSTRUCTIVE PULMONARY DISEASE: Continue current inhalers. 9. PERIPHERAL ARTERIAL DISEASE.: Patient with nonhealing ulcers of her left heel. 10. Elevated bilirubin with normal liver enzymes and abnormal alk phos: Doubt that this is obstructive jaundice. Will check a nonfasting liver function test to see if the patient does have Gilbert's syndrome with the alk phos being se condary to the patient's left heel ulcer and hence would recommend getting an x- ray to make sure the patient does not have osteomyelitis. 11. Gallstones by abdominal ultrasound with no evidence of CBD obstruction. Seems to be asymptomatic. 12. OBSTRUCTIVE SLEEP APNEA: Would recommend place the patient the patient on CPAP at night. 13.. DIABETES MELLITUS with peripheral arterial disease, and chronic kidney disease. Stable. . 14. Obesity. Medications reviewed. Medical regimen and management plan discussed with the attending provider on the case. Medical decision making is of moderate complexity. 40 minutes spent as patient with more than 50% of time spent direct patient care. Cardiac status is stable. Will sign off. He will follow-up with me in the office.
--- NOTE | 2019-09-06 18:18 | PDOC TRANSFER SUMMARY ---
Impression - Admit/DC Date/PCP Admission Date/Primary Care Provider: 08/19/19 08:43 RENAN LAZAR Discharge Date: 09/07/19 - Discharge Diagnosis (1) Acute hyperkalemia Is this a current diagnosis for this admission?: Yes (2) [id number] renal failure Is this a current diagnosis for this admission?: Yes (3) Chronic combined systolic and diastolic CHF (congestive heart failure) Is this a current diagnosis for this admission?: Yes (4) Diabetes mellitus type 2 in obese Is this a current diagnosis for this admission?: Yes (5) Anemia of chronic disease Is this a current diagnosis for this admission?: Yes (6) Abdominal pain, chronic, bilateral lower quadrant Is this a current diagnosis for this admission?: Yes (7) Diabetic ulcer of left foot associated with type 2 diabetes mellitus Is this a current diagnosis for this admission?: Yes (8) Chronic use of opiate for therapeutic purpose Is this a current diagnosis for this admission?: Yes (9) Obesity (BMI 30-39.9) Is this a current diagnosis for this admission?: Yes (10) [place] cystitis Is this a current diagnosis for this admission?: Yes (11) Asymptomatic cholelithiasis Is this a current diagnosis for this admission?: Yes - Assessment Summary: Patient was admitted for acute on chronic kidney failure with hyperkalemia. She presented similarly few weeks prior to her current admission. She was managed with IV Calcium gluconate, Dextrose 50%, and regular insulin administration with need for repeat treatment dose. She was seen in consultation by Dr. Alex Valladares, petrologist, and Dr. Liang, rig manager. There was concern for worsening renal function status and her cardiac function. With adjustment in management with IV fluid and IV Lasix her renal indices did improved. There was concern regarding her moderate pulmonary hypertension. She was treated with BiPAP support but patient remain noncompliant. She has history of obstructive sleep apnea and has been noncompliant with the CPAP usage on the pretest of too high air flow pressure and non-fitting full face mask. I did emphasized need for compliance but she will need a new sleep study to qualify for re-issue of CPAP machine. She will be arranged for sleep study on outpatient bases upon follow up in the office. She will be discharged back to SNF for rehabilitation on renal dietary restriction along with her cardiac diabetic restrictions. I did emphasized need to avoid narcotic medication usage as it may contribute to her renal function declined. She will follow up with Dr. Alex Valladares, Dr. Liang, and myself as instructed upon discharge. - Additional Information Resuscitation Status: Full Code Discharge Diet: Cardiac, Diabetic, Other (Comments) - Renal dietary restriction Discharge Activity: Activity As Tolerated, Balance Activity w/Rest, Weigh Daily Referrals: RENAN LAZAR MD [Primary Care Provider] - Follow up as needed Moo VALLADARES MD [ACTIVE STAFF] - GIGI SPEARS MD [ACTIVE STAFF] - Prescriptions: Fluconazole [Diflucan 100 mg Tablet] 100 mg PO DAILY #5 tablet Home Medications: Ascorbic Acid [Vitamin C 500 mg Tablet] 500 mg PO DAILY 11/30/18 Atorvastatin Calcium [Lipitor 20 mg Tablet] 20 mg PO QHS 11/30/18 Docusate Sodium [Colace 100 mg Capsule] 100 mg PO BIDP PRN 11/30/18 Ferrous Sulfate [Feosol 325 mg Tablet] 325 mg PO DAILY 11/30/18 Gabapentin [Neurontin 300 mg Capsule] 300 mg PO Q8 01/06/19 Insulin Degludec [Tresiba Flextouch U-100] 30 unit SQ DAILY 01/06/19 Escitalopram Oxalate [Lexapro 10 mg Tablet] 10 mg PO QHS #30 tablet 03/01/19 Dicyclomine HCl [Bentyl 10 mg Capsule] 10 mg PO DAILY PRN 04/13/19 Famotidine [Pepcid] 20 mg PO BID 04/13/19 Hydralazine HCl 100 mg PO Q8 04/13/19 Multivit,Tx with Iron,Minerals [Thera-M] 1 each PO DAILY 05/08/19 Acetaminophen [Acetaminophen Extra Strength] 500 mg PO DAILYP PRN 07/01/19 Meclizine HCl [Verticalm] 12.5 mg PO TID #45 tablet 07/19/19 Omeprazole 20 mg PO DAILY 07/25/19 Ipratropium/Albuterol Sulfate [Duoneb 3 ml Ampul] 3 ml NEB RTQ6HP PRN 08/19/19 Ondansetron HCl 4 mg PO Q6HP PRN 08/19/19 Carvedilol [Coreg 6.25 mg Tablet] 6.25 mg PO Q12 #0 tablet 09/06/19 Fluconazole [Diflucan 100 mg Tablet] 100 mg PO DAILY #5 tablet 09/06/19 Furosemide [Lasix 40 mg Tablet] 40 mg PO DAILY tablet 09/06/19 Insulin Lispro [Humalog Insulin (Lispro) 100 unit/mL] 0 - 12 unit SUBCUT ACHS unit 09/06/19 Olopatadine HCl [Patanol 0.1% Oph Soln 5 ml] 1 drop OU DAILY bottle 09/06/19 History of Present Illiness History of Present Illness: LEEANN FUNEZ is a 64 year old female known to my practice who was recently discharged to local SNF for rehabilitation. She was brought to the ED for further evaluation of reported hyperpiesia in recent laboratory evaluation. Her serum potassium was reported at 5.9. Patient reported no intake of oral potassium supplementation but admitted to indiscriminate consumption of banana, orange, and other fruits that may be high in potassium. She denied any chest julia n, difficulty with breathing, nausea, or vomiting. She reported chronic lower abdominal pain. No dysuria, flank pain or hematuria. She was managed with IV calcium gluconate, Regular insulin and 50% Dextrose administration. Her laboratory evaluation revealed acute renal failure with comparative elevation of her serum creatinine and BUN. She denied any tarry or bloody stool. She was advised hospitalization for further evaluation and management. Her morbidities are listed below. Hospital Course Hospital Course: Patient was admitted for acute on chronic kidney failure with hyperkalemia. She presented similarly few weeks prior to her current admission. She was managed with IV Calcium gluconate, Dextrose 50%, and regular insulin administration with need for repeat treatment dose. She was seen in consultation by Dr. Alex Valladares, petrologist, and Dr. Liang, rig manager. There was concern for worsening renal function status and her cardiac function. With adjustment in management with IV fluid and IV Lasix her renal indices did improved. There was concern regarding her moderate pulmonary hypertension. She was treated with BiPAP support but patient remain noncompliant. She has history of obstructive sleep apnea and has been noncompliant with the CPAP usage on the pretest of too high air flow pressure and non-fitting full face mask. I did emphasized need for compliance but she will need a new sleep study to qualify for re-issue of CPAP machine. She will be arranged for sleep study on outpatient bases upon follow up in the office. She will be discharged back to SNF for rehabilitation on renal dietary restriction along with her cardiac diabetic restrictions. I did emphasized need to avoid narcotic medication usage as it may contribute to her renal function declined. She will follow up with Dr. Alex Valladares, Dr. Liang, and myself as instructed upon discharge. Physical Exam Vital Signs: Temp Pulse Resp BP Pulse Ox 98.1 F 59 L 16 134/62 H 94 09/06/19 15:32 09/06/19 15:32 09/06/19 15:32 09/06/19 15:32 09/06/19 15:32 Intake & Output 09/05/19 09/06/19 09/07/19 06:59 06:59 06:59 Intake Total 1074 1620 Output Total 1475 975 Balance -401 645 Weight 104.1 kg 104.7 kg General appearance: PRESENT: no acute distress, obese Head exam: PRESENT: atraumatic, normocephalic Eye exam: PRESENT: conjunctiva pink. ABSENT: pallor, scleral icterus Breast: Left breast edema improving, probably positional. Respiratory exam: PRESENT: clear to auscultation lele, decreased breath sounds - at lung bases Cardiovascular exam: PRESENT: RRR, +S1, +S2. ABSENT: diastolic murmur, systolic murmur GI/Abdominal exam: PRESENT: normal bowel sounds, soft, left sided abdominal wall edema persist. ABSENT: distended, guarding, mass, organomegaly, rebound, tenderness Extremities exam: PRESENT: improving pedal edema - chronic bilateral to legs, left >> right leg, improved left breast and abdominal wall edema Neurological exam: PRESENT: alert, awake, oriented to person, oriented to place, oriented to time, oriented to situation Psychiatric exam: PRESENT: appropriate affect, normal mood. ABSENT: homicidal ideation, suicidal ideation Skin exam: PRESENT: dry, warm, other - chronic left foot non healing diabetic foot ulcer. Results Laboratory Results: WBC 5.3 10^3/uL (4.0-10.5) 09/05/19 05:34 RBC 2.96 10^6/uL (3.72-5.28) L 09/05/19 05:34 Hgb 9.0 g/dL (12.0-15.5) L 09/05/19 05:34 Hct 28.1 % (36.0-47.0) L 09/05/19 05:34 MCV 95 fl (80-97) 09/05/19 05:34 MCH 30.5 pg (27.0-33.4) 09/05/19 05:34 MCHC 32.1 g/dL (32.0-36.0) 09/05/19 05:34 RDW 17.5 % (11.5-14.0) H 09/05/19 05:34 Plt Count 83 10^3/uL (150-450) L 09/05/19 05:34 Lymph % (Auto) 21.5 % (13-45) 09/05/19 05:34 Whitman % (Auto) 16.5 % (3-13) H 09/05/19 05:34 Eos % (Auto) 2.6 % (0-6) 09/05/19 05:34 Baso % (Auto) 0.5 % (0-2) 09/05/19 05:34 Reticulocyte # 0.024 10^6/uL (0.028-0.122) L 08/24/19 06:30 Absolute Neuts (auto) 3.1 10^3/uL (1.7-8.2) 09/05/19 05:34 Absolute Lymphs (auto) 1.1 10^3/uL (0.5-4.7) 09/05/19 05:34 Absolute Monos (auto) 0.9 10^3/uL (0.1-1.4) 09/05/19 05:34 Absolute Eos (auto) 0.1 10^3/uL (0.0-0.6) 09/05/19 05:34 Absolute Basos (auto) 0.0 10^3/uL (0.0-0.2) 09/05/19 05:34 Seg Neutrophils % 58.9 % (42-78) 09/05/19 05:34 Platelet Estimate Cancelled 09/01/19 06:43 Retic Count (auto) 0.76 % (0.66-2.85) 08/24/19 06:30 Sodium 143.4 mmol/L (137-145) 09/06/19 05:14 Potassium 4.7 mmol/L (3.6-5.0) 09/06/19 05:14 Chloride 111 mmol/L (98-107) H 09/06/19 05:14 Carbon Dioxide 25 mmol/L (22-30) 09/06/19 05:14 Anion Gap 7 (5-19) 09/06/19 05:14 BUN 73 mg/dL (7-20) H 09/06/19 05:14 Creatinine 3.04 mg/dL (0.52-1.25) H 09/06/19 05:14 Est GFR ( Amer) 19 (>60) L 09/06/19 05:14 Est GFR (Non-Af Amer) Cancelled 09/02/19 05:57 Est GFR (MDRD) Non-Af 15 (>60) L 09/06/19 05:14 Glucose 118 mg/dL (75-110) H 09/06/19 05:14 POC Glucose 169 mg/dL (70-110) H 09/06/19 16:39 Calcium 9.4 mg/dL (8.4-10.2) 09/06/19 05:14 Magnesium 2.8 mg/dL (1.6-2.3) H 08/19/19 03:49 Iron 76.6 ug/dL (37-170) 08/24/19 09:18 TIBC 265 ug/dL (250-450) 08/24/19 09:18 % Saturation 29 % 08/24/19 09:18 Iron Saturation Cancelled 08/24/19 06:30 Ferritin 457.00 ng/mL (11.1-264.0) H 08/24/19 09:18 Total Bilirubin 1.1 mg/dL (0.2-1.3) 09/06/19 05:14 Direct Bilirubin 0.7 mg/dL (0.0-0.4) H 09/06/19 05:14 Neonat Total Bilirubin Not Reportable 09/06/19 05:14 Neonat Direct Bilirubin Not Reportable 09/06/19 05:14 Neonat Indirect Bili Not Reportable 09/06/19 05:14 GGT 820 U/L (8-78) H 09/05/19 05:34 AST 27 U/L (14-36) 09/06/19 05:14 ALT 21 U/L (<35) 09/06/19 05:14 Alkaline Phosphatase 504 U/L (38-126) H 09/06/19 05:14 Ammonia 29.6 umol/L (9-33) 08/24/19 09:18 Creatine Kinase < 20 U/L (30-135) L 08/19/19 03:49 Troponin I < 0.012 ng/mL 08/19/19 03:49 NT-Pro-B Natriuret Pep 9540 pg/mL (<125) H 08/19/19 03:49 Total Protein 7.2 g/dL (6.3-8.2) 09/06/19 05:14 Albumin 3.3 g/dL (3.5-5.0) L 09/06/19 05:14 EGFR Cancelled 09/02/19 05:57 Vitamin B12 652.0 pg/mL (239-931) 08/24/19 09:18 Folate > 20.00 ng/mL (>2.76) 08/24/19 09:18 Urine Color YELLOW 08/19/19 08:27 Urine Appearance SLIGHTLY-CLOUDY 08/19/19 08:27 Urine pH 6.0 (5.0-9.0) 08/19/19 08:27 Ur Specific Rindge 1.012 08/19/19 08:27 Urine Protein 30 mg/dL (NEGATIVE) H 08/19/19 08:27 Urine Glucose (UA) NEGATIVE mg/dL (NEGATIVE) 08/19/19 08:27 Urine Ketones NEGATIVE mg/dL (NEGATIVE) 08/19/19 08:27 Urine Blood NEGATIVE (NEGATIVE) 08/19/19 08:27 Urine Nitrite NEGATIVE (NEGATIVE) 08/19/19 08:27 Urine Bilirubin NEGATIVE (NEGATIVE) 08/19/19 08:27 Urine Urobilinogen NEGATIVE mg/dL (<2.0) 08/19/19 08:27 Ur Leukocyte Esterase LARGE (NEGATIVE) H 08/19/19 08:27 Urine WBC (Auto) 51 /HPF 08/19/19 08:27 Urine RBC (Auto) 29 /HPF 08/19/19 08:27 U Hyaline Cast (Auto) 8 /LPF 08/19/19 08:27 Urine Bacteria (Auto) TRACE /HPF 08/19/19 08:27 Squamous Epi Cells Auto 2 /HPF 08/19/19 08:27 Urine Yeast (Budding) PRESENT /HPF 08/19/19 08:27 Urine Ascorbic Acid 40 (NEGATIVE) H 08/19/19 08:27 Serum Alcohol < 10 mg/dL (NONE DETECTED) 08/19/19 03:49 COVID-19 Source NASOPHARYNGEAL 09/04/19 11:15 COVID-19 (CHIQUI) NOT DETECTED 09/04/19 11:15 Slides for Path Review Cancelled 09/01/19 06:43 Blood Type A2subB POSITIVE 08/20/19 07:49 Antibody Screen NEGATIVE 08/20/19 07:49 Crossmatch See Detail 08/20/19 07:49 08/19/19 03:49 Troponin I < 0.012 NT-Pro-B Natriuret Pep 9540 H Impressions: Chest X-Ray 08/19/19 10:03 IMPRESSION: Cardiomegaly and vascular congestion. Similar findings were noted on prior study. Abdomen Ultrasound 08/23/19 00:00 IMPRESSION: Borderline hepatomegaly. Normal hepatic and portal veins. Cholelithiasis with slight thickening of the gallbladder wall but a negative sonographic Viera sign. Venous Doppler Study 09/05/19 00:00 IMPRESSION: NO EVIDENCE DVT OR SVT IN EITHER LEG. Plan Health Concerns: Medication and dietary restriction compliance leading to high readmission risk. Plan of Treatment: Close monitoring of compliance with dietary restriction and medication compliance. Goals: Reduce readmission risk and slow disease progression. Time Spent: Greater than 30 Minutes Stroke Is this a Stroke Patient?: No Acute Heart Failure - Is this a Heart Failure Patient?: No
[2019-09-06] MEDS: FAMOTIDINE 20 MG TABLET PO SCH (21:28)
[2019-09-07] MEDS: HEPARIN SOD (PORCINE) 5,000 UNIT/ML 1 ML VIAL SUBCUT SCH ×2 (06:40→13:07)
[2019-09-07] MEDS: HYDRALAZINE HCL 50 MG TABLET PO SCH ×2 (06:41→13:09)
[2019-09-07] MEDS: INSULIN LISPRO 100 UNIT/ML 3 ML VIAL SUBCUT SCH ×2 (08:21→11:42)
[2019-09-07] MEDS: ASCORBIC ACID 500 MG TABLET PO SCH (10:29)
[2019-09-07] MEDS: CARVEDILOL 6.25 MG TABLET PO SCH (10:29)
[2019-09-07] MEDS: OLOPATADINE HCL 0.1% OPH SOLN 5 ML OU SCH (10:30)
[2019-09-07] MEDS: GABAPENTIN 300 MG CAPSULE PO SCH (10:30)
[2019-09-07] MEDS: MECLIZINE HCL 12.5 MG TABLET PO SCH ×2 (10:30→13:10)
[2019-09-07] MEDS: FLUCONAZOLE 100 MG TABLET PO SCH (10:30)
[2019-09-07] MEDS: FUROSEMIDE 40 MG TABLET PO SCH (10:30)
[2019-09-07 12:22] VITALS: BP 131/62
== END 2019-09-07 13:45 | DRG 682 ==
LOC: ER 01:26 → EH 08:43 → 3W 18:19
PROVIDERS: ADMIT Internal Medicine Geriatric Medicine; ATTEND Internal Medicine Geriatric Medicine
PROC: 30233N1 Transfusion of Nonautologous Red Blood Cells into Peripheral Vein, Percutaneous Approach (ICD-10-PCS; 2019-08-20)
PROC: 5A09457 Assistance with Respiratory Ventilation, 24-96 Consecutive Hours, Continuous Positive Airway Pressure (ICD-10-PCS; principal; 2019-09-03)
DX: N17.9 Acute kidney failure, unspecified (principal); L89.624 Pressure ulcer of left heel, stage 4; I13.0 Hypertensive heart and chronic kidney disease with heart failure and stage 1 through stage 4 chronic kidney disease, or unspecified chronic kidney disease; I50.42 Chronic combined systolic (congestive) and diastolic (congestive) heart failure; B37.41 Candidal cystitis and urethritis; L97.429 Non-pressure chronic ulcer of left heel and midfoot with unspecified severity; E87.5 Hyperkalemia; N18.4 Chronic kidney disease, stage 4 (severe); E11.22 Type 2 diabetes mellitus with diabetic chronic kidney disease; D63.1 Anemia in chronic kidney disease; E11.621 Type 2 diabetes mellitus with foot ulcer; K80.80 Other cholelithiasis without obstruction; I27.20 Pulmonary hypertension, unspecified; I25.10 Atherosclerotic heart disease of native coronary artery without angina pectoris; I48.0 Paroxysmal atrial fibrillation; E11.51 Type 2 diabetes mellitus with diabetic peripheral angiopathy without gangrene; G47.33 Obstructive sleep apnea (adult) (pediatric); E66.01 Morbid (severe) obesity due to excess calories; I27.81 Cor pulmonale (chronic); R31.9 Hematuria, unspecified; B96.5 Pseudomonas (aeruginosa) (mallei) (pseudomallei) as the cause of diseases classified elsewhere; I25.2 Old myocardial infarction; Z79.891 Long term (current) use of opiate analgesic; Z91.19 Patient's noncompliance with other medical treatment and regimen; Z79.899 Other long term (current) drug therapy; Z79.4 Long term (current) use of insulin; Z95.1 Presence of aortocoronary bypass graft; Z86.73 Personal history of transient ischemic attack (TIA), and cerebral infarction without residual deficits; Z88.6 Allergy status to analgesic agent; Z03.818 Encounter for observation for suspected exposure to other biological agents ruled out
CPT/HCPCS: 36415; 36430; 71045; 76700; 80048; 80053; 80076; 80307; 81001; 82140; 82550; 82607; 82728; 82746; 82962; 82977; 83540; 83550; 83735; 83880; 84484; 85025; 85027; 85045; 86850; 86900; 86901; 86920; 87070; 87077; 87086; 87186; 87205; 87635; 93005; 93010; 93306; 93970; 94660; 96374; 96375; 99285; J0610; C9803; J1450; J1644; J1815; J1940; J3490; P9016; Q5105